=== PATIENT | female | born 1945 | race Caucasian/White ===

== ENCOUNTER → 2016-10-20 | Outpatient (CLI) | payer OTHER ==
[~2016-10-20] MED LIST: ACET-1311 PO; ALUMSUS2 PO; ATOR-22 PO; ATRIN INH; ATRINS INH; BISA10SU38 PR; CALCTAB65 PO; CRDCD240 PO; CYAN500T PO; DIGO0.2519 PO; DIGO250T14 PO; DOCU100C31 PO; DXY100 PO; FLEC100T21 PO; FURO40TA3 PO; GFNSR600 PO; GLYCDRO6 OPB; HYG/25 PO; LACT10SO30 PO; LACT1TAB4 PO; LEVO75TA PO; LIDO5DIS10 TD; MAGNSUS5 PO; METO100T44 PO; NRN/300 PO; OXGN; OXYC-57 PO; PANT40TA PO; PLMINS INH; POLY335019 PO; PRD20 PO; RIVA1TAB4 PO; SENN-65 PO; SIMV20TA5 PO; SODIENE PR; TMB100 PO; XPNINS INH; XRL20 PO
--- NOTE | 2016-10-20 12:04 | DIAGNOSTIC IMAGING REPORT ---
CHEST 2 VIEWS ROUTINE CLINICAL HISTORY: R06.02 Shortness of [id number] dyspnea COMPARISON STUDY: 08/19/2013 FINDINGS: The bones soft tissues and hemidiaphragms are normal. The cardiomediastinal silhouette is normal. The lungs are clear. The pulmonary vasculature is normal. IMPRESSION: Negative chest. Electronically signed by: Jaylen Ronquillo M.D. 10/20/2016 12:02 PM Dictated Date/Time: 10/20/2016 12:02 PM
== END | disposition home or self-care (01) ==
LOC: C.RAD1850 11:43
PROVIDERS: ATTEND Physician Assistant
DX: R06.02 Shortness of breath (principal)

== ENCOUNTER 2016-10-21 10:36 | Inpatient (IN) | payer OTHER ==
[~2016-10-21] VITALS: Ht 157.5 cm; Wt 125.1 kg
[~2016-10-21 10:36] MED LIST changes: -ATOR-22 PO; -ATRIN INH; -DIGO0.2519 PO; -DXY100 PO; -FLEC100T21 PO; -FURO40TA3 PO; -PRD20 PO; -RIVA1TAB4 PO
[2016-10-21] MEDS ORDERED: METHYLPREDNISOLONE 125 MG VIAL IV STA (11:08)
[2016-10-21] MEDS ORDERED: ALBUT/IPRATROP 3MG/0.5MG NEB 3 ML VIAL INH STA ×2 (11:08→14:22)
--- NOTE | 2016-10-21 11:10 | EMERGENCY ROOM VISIT NOTE ---
History Report prepared by Jason: Edmond Mason Under the Supervision of: Dr. Jake Rinaldi D.O. First contact with patient: 10:57 Chief Complaint: RESPIRATORY PROBLEMS Stated Complaint: DIFF. BREATHING, CONGESTION POSS. PNEUMONIA History of Present Illness The patient is a 70 year old female with a history of COPD who presents to the Emergency Room with complaints of worsening respiratory problems that started a couple weeks ago. She says that she was seen by a physician cosmetic sales assistant yesterday , and had a chest x-ray done, which was negative for pneumonia. The patient was started on Augmentin, a nebulizer treatment, and a steroid, but she has not taken any of her medications today, per the nursing staff. The patient normally wears 2 liters of oxygen at night, but started wearing it during the day due to her symptoms. She says that she is wheezy with a productive cough that brings a little blood up. She says that she got hot early this morning, but denies a fever. She also denies any chest pain, new leg pain, or new leg swelling. The patient says that she had pneumonia a couple years ago, and feels much worse now than she did when she had it back then. Source of History: patient, nursing staff Onset: A couple weeks ago Position: other (global - respiratory problems) Timing: worsening Associated Symptoms: + SOB, + cough (productive that brings up a little blood), No chest pain, No fevers Note: Associated symptoms: Wheezy. Got hot early this morning. Denies new leg pain or new leg swelling. Review of Systems See HPI for pertinent positives & negatives. A total of 10 systems reviewed and were otherwise negative. Past Medical & Surgical Medical Problems: (1) Asthma (2) Atrial fibrillation, new onset (3) Autonomic neuropathy (4) Cholecystectomy (5) Chronic obstructive lung disease (6) Hernia repair (7) Hysterectomy (8) Pneumonia Family History FHx: heart disease Stroke Social History Smoking Status: Never Smoker Alcohol Use: none Marital Status: single Housing Status: lives alone Occupation Status: disabled Current/Historical Medications Scheduled Atorvastatin (Lipitor), 20 MG PO QPM Calcium Carbonate-Vitamin D (Calcium 500 + D), 1 TABLET PO BID Cyanocobalamin (Vitamin B-12), 500 MCG PO DAILY Digoxin (Digox), 250 MG PO DAILY Docusate Sodium (Docusate Sodium), 100 MG PO DAILY Flecainide (Tambocor), 100 MG PO Q12 Furosemide (Lasix), 20 MG PO DAILY Gabapentin (Neurontin), 300 MG PO DAILY Ipratropium [place] (Ipratropium [place]), 1 TREATMENT INH QID Ipratropium [place] (Atrovent Hfa), 2 PUFFS INH QID Levothyroxine Sodium (Synthroid), 75 MCG PO QAM Metoprolol Succ (Toprol Xl) (Toprol-Xl ), 100 MG PO DAILY Oxygen (Oxygen), 2 LITERS NA HS Pantoprazole (Protonix), 40 MG PO DAILY Rivaroxaban (Xarelto), 20 MG PO DAILY@1645 Senna/Docusate Sod (Senokot S), 1 TABLET PO DAILY Scheduled PRN Acetaminophen (Tylenol), 650 MG PO Q4H PRN for Mild Pain Bisacodyl (Dulcolax), 1 SUPP MD UD PRN for No Bowel Movement/Constipation Rkrvvhrp-Rmcnebsndihf-Auuapmwq (Artificial Tears), 2 DROPS OPB QID PRN for DRY EYES Magnesium Hydroxide (Milk Of Magnesia), 30 ML PO UD PRN for No Bowel Movement/ Constipation Polyethylene Glycol 3350 (Miralax), 17 GM PO Q24H PRN for Constipation Sodium Phosphate/Biphosphate (Fleet Enema), 1 EA MD UD PRN for No Bowel Movement /Constipation Allergies Coded Allergies: Pecan (Verified Allergy, Unknown, ., 10/21/16) Sulfa Drugs (Verified Adverse Reaction, Mild, YEAST INFECTION, 10/21/16) Physical Exam Vital Signs Date Time Temp Pulse Resp B/P Pulse Ox O2 Delivery O2 Flow Rate FiO2 10/21/16 15:29 72 85 Room Air 10/21/16 14:30 66 18 209/79 99 Nebulizer 7.0 10/21/16 13:31 61 16 183/74 94 Nasal Cannula 2.0 10/21/16 13:17 58 10/21/16 12:01 64 16 160/68 95 Room Air 10/21/16 11:02 95 Nasal Cannula 2.0 10/21/16 11:02 95 Nasal Cannula 2.0 10/21/16 10:55 68 10/21/16 10:44 Nasal Cannula 2.0 10/21/16 10:40 36.6 84 26 159/93 88 Room Air Physical Exam GENERAL: Patient is awake, alert, mildly anxious appearing but comfortable. Does not appear to be in pain. EYES: The conjunctivae are clear. The pupils are round and reactive. EARS, NOSE, MOUTH AND THROAT: The nose is without any evidence of any deformity. Mucous membranes are moist tongue is midline NECK: The neck is nontender and supple. RESPIRATORY: Diminished breath sounds noted throughout. There was expiratory wheezing noted in all brown. Tachypnea was noted with mild conversational dyspnea. CARDIOVASCULAR: Heart sounds are tachycardic but regular. No definite murmur noted to auscultation. GASTROINTESTINAL: The abdomen is soft. Bowel sounds are present in all quadrants. Abdomen is nontender MUSCULOSKELETAL/EXTREMITIES: There is no evidence of gross deformity full range of motion is noted in the hips and shoulders SKIN: Pedal edema bilaterally, right greater than left. NEUROLOGIC: Patient is awake alert and oriented x3. Medical Decision & Procedures ER Provider Diagnostic Interpretation: X-ray results as stated below per interpretation by me and the radiologist. SINGLE VIEW CHEST CLINICAL HISTORY: Dyspnea. FINDINGS: An AP, portable, upright chest radiograph is compared to study dated 10/20/2016. The examination is degraded by portable technique and apical lordotic positioning. The heart is enlarged and there is atherosclerotic calcification of the thoracic aorta. The pulmonary vasculature is noncongested. Chronic interstitial thickening is unchanged. No airspace consolidation, large pleural effusion, or pneumothorax is seen. The skeletal structures are osteopenic. Degenerative change is noted throughout the thoracic spine. Chronic deformity is noted in the left humeral shaft. IMPRESSION: Cardiomegaly with no acute cardiopulmonary abnormality. Electronically signed by: Tommy Cardona M.D. 10/21/2016 11:42 AM Dictated Date/Time: 10/21/2016 11:41 AM Laboratory Results 10/21/16 11:07 Red Blood Count 4.64, Mean Corpuscular Volume 90.9, Mean Corpuscular Hemoglobin 29.5, Mean Corpuscular Hemoglobin Concent 32.5, Mean Platelet Volume 9.3, Neutrophils (%) (Auto) 82.4, Lymphocytes (%) (Auto) 10.2, Monocytes (%) (Auto) 6.1, Eosinophils (%) (Auto) 0.6, Basophils (%) (Auto) 0.3, Neutrophils # (Auto) 10.64, Lymphocytes # (Auto) 1.32, Monocytes # (Auto) 0.79, Eosinophils # (Auto) 0.08, Basophils # (Auto) 0.04 10/21/16 11:07 Test 10/21/16 11:07 10/21/16 12:15 10/21/16 12:40 10/21/16 16:11 White Blood Count 12.92 K/uL (4.8-10.8) Red Blood Count 4.64 M/uL (4.2-5.4) Hemoglobin 13.7 g/dL (12.0-16.0) Hematocrit 42.2 % (37-47) Mean Corpuscular Volume 90.9 fL (80-100) Mean Corpuscular Hemoglobin 29.5 pg (25-34) Mean Corpuscular Hemoglobin Concent 32.5 g/dl (32-36) Platelet Count 293 K/uL (130-400) Mean Platelet Volume 9.3 fL (7.4-10.4) Neutrophils (%) (Auto) 82.4 % Lymphocytes (%) (Auto) 10.2 % Monocytes (%) (Auto) 6.1 % Eosinophils (%) (Auto) 0.6 % Basophils (%) (Auto) 0.3 % Neutrophils # (Auto) 10.64 K/uL (1.4-6.5) Lymphocytes # (Auto) 1.32 K/uL (1.2-3.4) Monocytes # (Auto) 0.79 K/uL (0.11-0.59) Eosinophils # (Auto) 0.08 K/uL (0-0.5) Basophils # (Auto) 0.04 K/uL (0-0.2) RDW Standard Deviation 43.9 fL (36.4-46.3) RDW Coefficient of Variation 13.3 % (11.5-14.5) Immature Granulocyte % (Auto) 0.4 % Immature Granulocyte # (Auto) 0.05 K/uL (0.00-0.02) Prothrombin Time 10.7 SECONDS (9.0-12.0) Prothromb Time International Ratio 1.0 (0.9-1.1) Activated Partial Thromboplast Time 26.0 SECONDS (21.0-31.0) Partial Thromboplastin Ratio 1.0 Anion Gap 6.0 mmol/L (3-11) Est Creatinine Clear Calc Drug Dose 79.5 ml/min Estimated GFR () 81.6 Estimated GFR (Non- 70.4 BUN/Creatinine Ratio 13.7 (10-20) Calcium Level 9.2 mg/dl (8.5-10.1) Total Bilirubin 0.3 mg/dl (0.2-1) Aspartate Amino Transf (AST/SGOT) 18 U/L (15-37) Alanine Aminotransferase (ALT/SGPT) 23 U/L (12-78) Alkaline Phosphatase 108 U/L (45-117) Total Creatine Kinase 69 U/L (26-192) Creatine Kinase MB 1.7 ng/ml (0.5-3.6) Creatine Kinase MB Ratio 2.5 (0-3.0) Troponin I 0.015 ng/ml (0-0.045) Pro-B-Type Natriuretic Peptide 1057 pg/ml (0-900) Total Protein 7.9 gm/dl (6.4-8.2) Albumin 3.3 gm/dl (3.4-5.0) Globulin 4.6 gm/dl (2.5-4.0) Albumin/Globulin Ratio 0.7 (0.9-2) Urine Color YELLOW Urine Appearance CLEAR (CLEAR) Urine pH 7.0 (4.5-7.5) Urine Specific [place] 1.011 (1.000-1.030) Urine Protein NEG (NEG) Urine Glucose (UA) NEG (NEG) Urine Ketones NEG (NEG) Urine Occult Blood NEG (NEG) Urine Nitrite NEG (NEG) Urine Bilirubin NEG (NEG) Urine Urobilinogen NEG (NEG) Urine Leukocyte Esterase NEG (NEG) Bedside Lactic Acid Venous 2.40 mmol/L (0.90-1.70) Laboratory results per my review. Medications Administered Medications (Trade) Dose Ordered Sig/Darlene Route Start Time Stop Time Status Last Admin Dose Admin Methylprednisolone Sodium Succinate (Solu-Medrol IV) 125 mg NOW STAT IV 10/21/16 11:08 10/21/16 11:09 DC 10/21/16 11:42 125 MG Albuterol/ Ipratropium (Duoneb) 3 ml NOW STAT INH 10/21/16 11:08 10/21/16 11:09 DC 10/21/16 11:42 3 ML Albuterol/ Ipratropium (Duoneb) 3 ml NOW STAT INH 10/21/16 14:22 10/21/16 14:23 DC 10/21/16 14:27 3 ML Levofloxacin (Levaquin / D5W) 750 mg NOW STAT IV 10/21/16 14:23 10/21/16 14:24 DC 10/21/16 14:27 750 MG ECG Indication: SOB/dyspnea Rate (beats per minute): 61 Rhythm: normal sinus Findings: no ectopy, other (RBBB pattern noted) Change: no significant change (from August 20 2013) ED Course 1105: The patient was evaluated in room C7. A complete history and physical examination were performed. 1108: Ordered Duoneb 3 ml INH, Solu-Medrol IV 125 mg IV. 1423: Ordered Levaquin / D5W 750 mg IV. 1525: I reevaluated the patient and she is resting. The patient verbally expressed understanding and agreement with the treatment plan. The patient will be evaluated for further treatment. 1536: I discussed the patient with Dr. Burnette - [facility] carbonation equipment tender. He will evaluate the patient for further treatment. Medical Decision Prior records/ancillary studies reviewed. Triage Nursing notes reviewed. Differential diagnosis: Etiologies such as infections, reactive airway disease, pneumonia, pneumothorax , COPD, CHF, cardiac ischemia, pulmonary embolism, musculoskeletal, gastrointestinal, as well as others were entertained. The patient is a 70-year-old female who presented to the emergency department for an evaluation of significant shortness of breath. The patient has a history of COPD and was treated with bronchodilator therapy steroids and antibiotics by her primary care physician. She presents to the emergency department today because worsening ongoing symptoms. The patient had very significant dyspnea as well as hypoxia on exertion. She normally wears nasal cannula oxygen at night but had to wear nasal cannula oxygen throughout today because of her symptoms. The patient takes anticoagulation for atrial fibrillation. I discussed the patient's laboratory and radiographic studies with her. She was treated with multiple bronchodilator treatments as well as steroids. She was also given IV antibiotics. On subsequent reevaluation she still had significant symptoms and have hypoxia with exertion. For this reason I discussed her case with the on- call [facility] hospitalist group. They have agreed to evaluate the patient in the emergency apartment for further major and disposition. Consults Time Called: 1530 Consulting Physician: Dr. Vasile TERESA carbonation equipment tender Returned Call: 1533 I discussed the patient with Dr. Vasile TERESA carbonation equipment tender. He will evaluate the patient for further treatment. Impression Primary Impression: Acute bronchitis Additional Impressions: COPD exacerbation Hypoxia Scribe Attestation The scribe's documentation has been prepared under my direction and personally reviewed by me in its entirety. I confirm that the note above accurately reflects all work, treatment, procedures, and medical decision making performed by me. Departure Information Dispostion Being Evaluated By Hospitalist Referrals Harsha Venegas M.D. (PCP) Patient Instructions My [facility] Problem Qualifiers Primary Impression: Acute bronchitis Bronchitis organism: unspecified organism Qualified Codes: J20.9 - Acute bronchitis, unspecified
[2016-10-21 11:22] LABS: BASO % 0.3 %; BASO ABS # 0.04 K/uL (0-0.2); COMPLETE YES; EOS % 0.6 %; HEMATOCRIT 42.2 % (37-47); IG% 0.4 %; LYMPH % 10.2 %; LYMPH ABS # 1.32 K/uL (1.2-3.4); MEAN CELL VOLUME 90.9 fL (80-100); MEAN CORPUSCULAR HEMOGLOBIN 29.5 pg (25-34); MEAN CORPUSCULAR HGB CONC 32.5 g/dl (32-36); MEAN PLATELET VOLUME 9.3 fL (7.4-10.4); MONO % 6.1 %; NEUT % 82.4 %; PLATELET COUNT 293 K/uL (130-400); RED BLOOD COUNT 4.64 M/uL (4.2-5.4); WHITE BLOOD COUNT 12.92 K/uL (4.8-10.8)
[2016-10-21 11:39] LABS: PROTHROMBIN TIME (PATIENT) 10.7 SECONDS (9.0-12.0)
[2016-10-21 11:41] LABS: BUN/CREATININE RATIO 13.7 (10-20); CALCIUM 9.2 mg/dl (8.5-10.1); CREATININE 0.85 mg/dl (0.60-1.20); POTASSIUM 3.9 mmol/L (3.5-5.1)
[2016-10-21] MEDS ORDERED: ATRIN INH (11:41)
[2016-10-21] MEDS ORDERED: FLEC100T21 PO (11:41)
[2016-10-21] MEDS ORDERED: DIGO0.2519 PO (11:41)
[2016-10-21] MEDS ORDERED: RIVA1TAB4 PO (11:41)
[2016-10-21] MEDS ORDERED: ATOR-22 PO (11:41)
[2016-10-21] MEDS ORDERED: FURO40TA3 PO (11:41)
--- NOTE | 2016-10-21 11:44 | DIAGNOSTIC IMAGING REPORT ---
SINGLE VIEW CHEST CLINICAL HISTORY: Dyspnea. FINDINGS: An AP, portable, upright chest radiograph is compared to study dated 10/20/2016. The examination is degraded by portable technique and apical lordotic positioning. The heart is enlarged and there is atherosclerotic calcification of the thoracic aorta. The pulmonary vasculature is noncongested. Chronic interstitial thickening is unchanged. No airspace consolidation, large pleural effusion, or pneumothorax is seen. The skeletal structures are osteopenic. Degenerative change is noted throughout the thoracic spine. Chronic deformity is noted in the left humeral shaft. IMPRESSION: Cardiomegaly with no acute cardiopulmonary abnormality. Electronically signed by: Tommy Cardona M.D. 10/21/2016 11:42 AM Dictated Date/Time: 10/21/2016 11:41 AM
[2016-10-21 11:46] LABS: ALB/GLOB RATIO 0.7 (0.9-2); CKMB/CK RATIO 2.5 (0-3.0)
[2016-10-21 12:40] LABS: URINE APPEARANCE CLEAR (CLEAR); URINE BILIRUBIN NEG (NEG); URINE COLOR YELLOW; URINE NITRITE NEG (NEG); URINE SPECIFIC GRAVITY 1.011 (1.000-1.030); UROBILINOGEN NEG (NEG)
[2016-10-21 12:56] LABS: MANUAL MICROSCOPIC REQUIRED? NO; REVIEW REQ? NO
[2016-10-21] MEDS ORDERED: LEVAQUIN 750MG / 150ML D5W IV STA (14:23)
[2016-10-21] MEDS ORDERED: MAGNESIUM HYDROXIDE SUSP 30 ML UDC PO PRN (16:15)
[2016-10-21] MEDS ORDERED: ONDANSETRON INJ 2 MG/ML 2 ML VIAL IV PRN (16:15)
[2016-10-21] MEDS ORDERED: ACETAMINOPHEN 325 MG TAB PO PRN (16:15)
--- NOTE | 2016-10-21 16:28 | History and Physical ---
History & Physical Date & Time of Service: October 21, 2016 at 16:14 Chief Complaint: Diff. Breathing, Congestion Poss. Pneumonia Primary Care Physician: Harsha Venegas M.D. History of Present Illness Source: patient Pt is a 70 year old female with a history of COPD, afib, neuropathy, hypothyroidism who presents to the ER with worsening shortess of breath that initially started a few weeks ago but worsened a cple day ago. Pt reports worsening sob at rest and saw her PCP Dr Venegas's PA 2 days ago and was given steroid taper in addition to amoxicillin. Pt reports CXR also done but no PNA reported at that time. She states she did not improve on this regimen and states she was wearing her O2 during the day in addition to her usual (only wearing it at night) and noted worsening cough with productive yellowish-greenish sputum. Pt denies occasional chills but no fevers. No chest pain, palpitations, leg swelling, N/V/D. The patient says that she had pneumonia a couple years ago, and feels much worse now than she did when she had it back then. Past Medical/Surgical History Medical Problems: (1) Asthma Status: Chronic (2) Atrial fibrillation, new onset Status: Chronic (3) Autonomic neuropathy Status: Chronic (4) Cholecystectomy Status: Resolved (5) Chronic obstructive lung disease Status: Chronic (6) Hernia repair Status: Resolved (7) Hysterectomy Status: Resolved (8) Pneumonia Status: Resolved Family History FHx: heart disease Stroke Social History Smoking Status: Never Smoker Smokeless Tobacco Use: No Alcohol Use: none Drug Use: none Marital Status: single Housing status: lives alone Occupational Status: disabled Immunizations History of Influenza Vaccine: Yes Influenza Vaccine Date: Mar 02, 2013 History of Tetanus Vaccine?: UTD History of Pneumococcal: Yes History of Hepatitis B Vaccine: No Multi-Drug Resistant Organisms History of MDRO: No Allergies Coded Allergies: Pecan (Verified Allergy, Unknown, ., 10/21/16) Sulfa Drugs (Verified Adverse Reaction, Mild, YEAST INFECTION, 10/21/16) Home Medications Scheduled Atorvastatin (Lipitor), 20 MG PO QPM Calcium Carbonate-Vitamin D (Calcium 500 + D), 1 TABLET PO BID Cyanocobalamin (Vitamin B-12), 500 MCG PO DAILY Digoxin (Digox), 250 MG PO DAILY Docusate Sodium (Docusate Sodium), 100 MG PO DAILY Flecainide (Tambocor), 100 MG PO Q12 Furosemide (Lasix), 20 MG PO DAILY Gabapentin (Neurontin), 300 MG PO DAILY Ipratropium [place] (Ipratropium [place]), 1 TREATMENT INH QID Ipratropium [place] (Atrovent Hfa), 2 PUFFS INH QID Levothyroxine Sodium (Synthroid), 75 MCG PO QAM Metoprolol Succ (Toprol Xl) (Toprol-Xl ), 100 MG PO DAILY Oxygen (Oxygen), 2 LITERS NA HS Pantoprazole (Protonix), 40 MG PO DAILY Rivaroxaban (Xarelto), 20 MG PO DAILY@1645 Senna/Docusate Sod (Senokot S), 1 TABLET PO DAILY Scheduled PRN Acetaminophen (Tylenol), 650 MG PO Q4H PRN for Mild Pain Bisacodyl (Dulcolax), 1 SUPP MS UD PRN for No Bowel Movement/Constipation Tbjnlkeo-Nwnzccsktocf-Jalqrdwi (Artificial Tears), 2 DROPS OPB QID PRN for DRY EYES Magnesium Hydroxide (Milk Of Magnesia), 30 ML PO UD PRN for No Bowel Movement/ Constipation Polyethylene Glycol 3350 (Miralax), 17 GM PO Q24H PRN for Constipation Sodium Phosphate/Biphosphate (Fleet Enema), 1 EA MS UD PRN for No Bowel Movement /Constipation Review of Systems Constitutional: + chills, + fatigue, + weakness, No fever Eyes: No eye pain, No worsening of vision ENT: + nasal symptoms, No hearing loss, No sore throat, No tinnitus, No trouble swallowing, No unusual epistaxis Respiratory: + cough, + dyspnea at rest, + dyspnea on exertion, + shortness of breath, + sputum, + wheezing, No hemoptysis Cardiovascular: No PND, No chest pain, No claudication, No edema, No orthopnea Abdomen: No constipation, No diarrhea, No nausea, No pain, No vomiting Musculoskeletal: No joint pain, No muscle pain, No swelling Genitourinary - Female: No dysuria, No urinary frequency, No urinary incontinence, No urinary urgency Neurologic: + numbness/tingling, No memory loss, No paralysis, No weakness Psychiatric: No anhedonism, No anxiety, No depression symptoms Endocrine: No excessive thirst, No excessive urination, No fatigue Integumentary: No itch, No rash Physical Exam Vital Signs Date Time Temp Pulse Resp B/P Pulse Ox O2 Delivery O2 Flow Rate FiO2 10/21/16 15:29 72 85 Room Air 10/21/16 14:30 66 18 209/79 99 Nebulizer 7.0 10/21/16 13:31 61 16 183/74 94 Nasal Cannula 2.0 10/21/16 13:17 58 10/21/16 12:01 64 16 160/68 95 Room Air 10/21/16 11:02 95 Nasal Cannula 2.0 10/21/16 11:02 95 Nasal Cannula 2.0 10/21/16 10:55 68 10/21/16 10:44 Nasal Cannula 2.0 10/21/16 10:40 36.6 84 26 159/93 88 Room Air General Appearance: WD/WN, + mild distress Head: normocephalic, atraumatic Eyes: normal inspection, PERRL, EOMI Neck: supple, no adenopathy, thyroid normal, no JVD Respiratory/Chest: chest non-tender, + decreased breath sounds, + wheezing Cardiovascular: no edema, no gallop, no JVD, no murmur Abdomen/GI: non tender, soft, no organomegaly Back: normal inspection, no CVA tenderness, no muscle spasm Extremities/Musculoskelatal: normal inspection, no calf tenderness, normal capillary refill, no pedal edema Neurologic/Psych: alert, normal mood/affect, normal reflexes, oriented x 3 Skin: normal color, warm/dry, no rash Diagnostics Laboratory Results Results Past 24 Hours Test 10/21/16 11:07 10/21/16 12:15 10/21/16 12:40 10/21/16 16:11 Range/Units White Blood Count 12.92 4.8-10.8 K/uL Red Blood Count 4.64 4.2-5.4 M/uL Hemoglobin 13.7 12.0-16.0 g/dL Hematocrit 42.2 37-47 % Mean Corpuscular Volume 90.9 80-100 fL Mean Corpuscular Hemoglobin 29.5 25-34 pg Mean Corpuscular Hemoglobin Concent 32.5 32-36 g/dl Platelet Count 293 130-400 K/uL Mean Platelet Volume 9.3 7.4-10.4 fL Neutrophils (%) (Auto) 82.4 % Lymphocytes (%) (Auto) 10.2 % Monocytes (%) (Auto) 6.1 % Eosinophils (%) (Auto) 0.6 % Basophils (%) (Auto) 0.3 % Neutrophils # (Auto) 10.64 1.4-6.5 K/uL Lymphocytes # (Auto) 1.32 1.2-3.4 K/uL Monocytes # (Auto) 0.79 0.11-0.59 K/uL Eosinophils # (Auto) 0.08 0-0.5 K/uL Basophils # (Auto) 0.04 0-0.2 K/uL RDW Standard Deviation 43.9 36.4-46.3 fL RDW Coefficient of Variation 13.3 11.5-14.5 % Immature Granulocyte % (Auto) 0.4 % Immature Granulocyte # (Auto) 0.05 0.00-0.02 K/uL Prothrombin Time 10.7 9.0-12.0 SECONDS Prothromb Time International Ratio 1.0 0.9-1.1 Activated Partial Thromboplast Time 26.0 21.0-31.0 SECONDS Partial Thromboplastin Ratio 1.0 Sodium Level 138 136-145 mmol/L Potassium Level 3.9 3.5-5.1 mmol/L Chloride Level 99 98-107 mmol/L Carbon Dioxide Level 33 21-32 mmol/L Anion Gap 6.0 3-11 mmol/L Blood Urea Nitrogen 12 7-18 mg/dl Creatinine 0.85 0.60-1.20 mg/dl Est Creatinine Clear Calc Drug Dose 79.5 ml/min Estimated GFR () 81.6 Estimated GFR (Non- 70.4 BUN/Creatinine Ratio 13.7 10-20 Random Glucose 137 70-99 mg/dl Calcium Level 9.2 8.5-10.1 mg/dl Total Bilirubin 0.3 0.2-1 mg/dl Aspartate Amino Transf (AST/SGOT) 18 15-37 U/L Alanine Aminotransferase (ALT/SGPT) 23 12-78 U/L Alkaline Phosphatase 108 45-117 U/L Total Creatine Kinase 69 26-192 U/L Creatine Kinase MB 1.7 0.5-3.6 ng/ml Creatine Kinase MB Ratio 2.5 0-3.0 Troponin I 0.015 0-0.045 ng/ml Pro-B-Type Natriuretic Peptide 1057 0-900 pg/ml Total Protein 7.9 6.4-8.2 gm/dl Albumin 3.3 3.4-5.0 gm/dl Globulin 4.6 2.5-4.0 gm/dl Albumin/Globulin Ratio 0.7 0.9-2 Urine Color YELLOW Urine Appearance CLEAR CLEAR Urine pH 7.0 4.5-7.5 Urine Specific [place] 1.011 1.000-1.030 Urine Protein NEG NEG Urine Glucose (UA) NEG NEG Urine Ketones NEG NEG Urine Occult Blood NEG NEG Urine Nitrite NEG NEG Urine Bilirubin NEG NEG Urine Urobilinogen NEG NEG Urine Leukocyte Esterase NEG NEG Bedside Lactic Acid Venous 2.40 0.90-1.70 mmol/L Microbiology Results 10/21/16 Blood Culture, Received Pending 10/21/16 Blood Culture, Received Pending Impression Assessment and Plan Pt is a 70 ye female with hx of COPD, afib, dyslipidemia, neuropathy who presents to ER with worsening sob x 2 days Shortness of breath likely secondary to bronchitis vs developing PNA. No CXR findings indicative of infiltrate, however lactate and WBC elev in addition to productive sputum. Will utilize levaquin 750 mg IV q daily and solumedrol 60 mg IV q 8 hrs. Duonebs q 4 hrs and flutter valve will be utilized as well. Obtain sputum and blood cx. If worsening may consider CTA, however pt on xarelto which she states compliance with Afib currently in NSR, cont flecanide, digoxin and xarelto, rate controlled COPD cont on duonebs, steroids and O2 per protocol Hypothyroidism cont synthroid, check TSH Neuropathy stable, cont on neurontin DVT ppx with xarelto Pt is FULL CODE VTE Prophylaxis VTE Risk Assessment Done? Y/N: Yes Risk Level: Moderate
[2016-10-21] MEDS: RIVAROXABAN 10 MG TAB PO SCH (16:45)
[2016-10-21 17:06] LABS: MAGNESIUM 2.2 mg/dl (1.8-2.4); THYROID STIMULATING HORMONE 2.94 uIu/ml (0.300-4.500)
[2016-10-21] MEDS: DIGOXIN 0.25 MG TAB PO SCH (21:25)
[2016-10-21] MEDS: METHYLPREDNISOLONE IV 60 MG in SYRINGE 0 ML IV SCH (21:26)
[2016-10-21] MEDS: ATORVASTATIN 20 MG TAB PO SCH (21:27)
[2016-10-21] MEDS: FLECAINIDE ACETATE 100 MG TAB PO SCH (21:27)
[2016-10-21] MEDS ORDERED: NURSING VERBAL MED ORDER ONE (22:15)
[2016-10-21 22:35] VITALS: BP 158/83; PULSE 60; TEMP 36.4; O2SAT 94
[2016-10-21 22:37] VITALS: BP 169/70; PULSE 91; TEMP 37.9; O2SAT 94; Ht 157.5 cm; Wt 125.1 kg
[2016-10-21 23:14] VITALS: PULSE 64; O2SAT 96
[2016-10-21] MEDS: ALBUT/IPRATROP 3MG/0.5MG NEB 3 ML VIAL INH SCH (23:14)
[2016-10-22] VITALS (14 sets, daily range): BP systolic 118–167; BP diastolic 63–82; PULSE 52–74; TEMP 36.5–36.9; O2SAT 91–98
[2016-10-22] MEDS: LEVOTHYROXINE 75 MCG TAB PO SCH (05:57)
[2016-10-22] MEDS: ALBUT/IPRATROP 3MG/0.5MG NEB 3 ML VIAL INH SCH ×4 (06:07→19:00)
[2016-10-22 06:39] LABS: BASO % 0.1 %; BASO ABS # 0.01 K/uL (0-0.2); COMPLETE YES; HEMATOCRIT 40.3 % (37-47); IG% 0.3 %; LYMPH % 11.2 %; LYMPH ABS # 1.27 K/uL (1.2-3.4); MEAN CELL VOLUME 92.2 fL (80-100); MEAN CORPUSCULAR HEMOGLOBIN 29.7 pg (25-34); MEAN CORPUSCULAR HGB CONC 32.3 g/dl (32-36); MEAN PLATELET VOLUME 9.6 fL (7.4-10.4); MONO % 4.8 %; NEUT % 83.6 %; PLATELET COUNT 283 K/uL (130-400); RED BLOOD COUNT 4.37 M/uL (4.2-5.4); WHITE BLOOD COUNT 11.35 K/uL (4.8-10.8)
[2016-10-22 07:16] LABS: BLOOD UREA NITROGEN 14 mg/dl (7-18); BUN/CREATININE RATIO 18.6 (10-20); CALCIUM 9.1 mg/dl (8.5-10.1); CARBON DIOXIDE 32 mmol/L (21-32); CHLORIDE 101 mmol/L (98-107); CREATININE 0.77 mg/dl (0.60-1.20); GLUCOSE 148 mg/dl (70-99); POTASSIUM 4.2 mmol/L (3.5-5.1); SODIUM 140 mmol/L (136-145)
[2016-10-22] MEDS: DOCUSATE SODIUM 100 MG CAP PO SCH (08:43)
[2016-10-22] MEDS: CYANOCOBALAMIN 500 MCG TAB (VIT B-12) PO SCH (08:43)
[2016-10-22] MEDS: FUROSEMIDE 20 MG TAB PO SCH (08:44)
[2016-10-22] MEDS: METOPROLOL SUCC 50MG EXT REL TAB PO SCH (08:45)
[2016-10-22] MEDS: PANTOprazole SOD 40 MG TAB PO SCH (08:45)
[2016-10-22] MEDS: METHYLPREDNISOLONE IV 60 MG in SYRINGE 0 ML IV SCH ×2 (08:45→20:56)
[2016-10-22] MEDS: FLECAINIDE ACETATE 100 MG TAB PO SCH ×2 (08:45→20:48)
[2016-10-22] MEDS ORDERED: GABAPENTIN 300 MG CAP PO SCH (09:00)
--- NOTE | 2016-10-22 10:05 | Clinical Documentation Query ---
QUERY 1 OF [address] PAN, In your clinical opinion is this patient being managed for: (X ) Acute respiratory failure evidenced by tachypnea, orthopnea and hypoxia ( ) Other explanation of clinical findings (Please Explain) ( ) Unable to determine (Please Define) ( ) Need to Discuss ( ) Not Agree The medical record reflects the following clinical findings, treatment, and risk factors. Clinical Indicators: 70 yo female presenting with worsening respiratory problems. Pt has had to increase her HS only oxygen to continuous wear. ER describes pt as tachypnea with mild conversational dyspnea, mildly anxious. Per nursing documentation in ER, pt had to sit up to breathe thru the night. VS 36.6-84-26, 159/93, O2 sat 88% on RA Treatment: IV solumedrol, duonebs x 2, IV levaquin, continuous O2 support Risk Factors: age, COPD, pneumonia QUERY 2 OF 2 In your clinical opinion is this patient being managed for: ( X ) Morbid obesity with BMI 49.7 ( ) Other explanation of clinical findings (Please Explain) ( ) Unable to determine (Please Define) ( ) Need to Discuss ( ) Not Agree BMI: A significantly high (> 40) BMI will impact the severity of illness and risk of mortality of your patient. However, the physician must document a correlating diagnosis in the medical Record. Please clarify and document your clinical opinion in the progress notes and discharge summary. Terms such as "probable", "suspected", "likely", "questionable", "possible", or "still to be ruled out" are acceptable. IF IN AGREEMENT, YOU MUST DOCUMENT ABOVE DIAGNOSTIC STATEMENT IN DAILY PROGRESS NOTES AND DISCHARGE SUMMARY. This document is not part of the patient's record. Thank You, Henrietta Riggins RN [phone]
[2016-10-22] MEDS: DOXYCYCLINE HYCLATE 100 MG in DEXTROSE 5% 100ML IV SCH (15:41)
[2016-10-22] MEDS: CEFTRIAXONE SOD INJ 2000 MG in DEXTROSE 5% 50ML IV SCH (15:41)
--- NOTE | 2016-10-22 15:42 | Progress Note ---
Subjective Date of Service: October 22, 2016. Subjective Pt evaluation today including: conversation w/ patient, physical exam, chart review, lab review, review of studies, conversation w/ client service consultant, review of inpatient medication list Pt resting comfortably in bed States less wheezing and less shortness of breath Still productive sputum of yellowish-brown phlegm No acute events overnight Problem List Medical Problems: (1) Acute bronchitis Status: Acute (2) COPD exacerbation Status: Acute (3) Hypoxia Status: Acute Review of Systems Constitutional: No chills, No fever Eyes: No eye pain, No worsening of vision ENT: No hearing loss, No nasal symptoms, No unusual epistaxis Respiratory: + cough, + sputum, No shortness of breath, No wheezing Cardiac: No PND, No chest pain, No edema, No orthopnea Abdomen: No constipation, No diarrhea, No nausea, No pain, No vomiting Musculoskeletal: No joint pain, No muscle pain, No swelling Female : No dysuria, No hematuria, No incontinence, No urinary frequency Neurologic: No memory loss, No numbness/tingling, No paralysis, No weakness Objective Vital Signs Date Time Temp Pulse Resp B/P Pulse Ox O2 Delivery O2 Flow Rate FiO2 10/22/16 12:00 95 Nasal Cannula 2.0 10/22/16 11:55 69 20 95 Nasal Cannula 2.0 10/22/16 11:35 36.8 52 16 118/69 97 Nasal Cannula 2.0 10/22/16 08:00 95 Nasal Cannula 2.0 10/22/16 07:56 36.6 61 16 146/63 95 Nasal Cannula 2.0 10/22/16 06:08 74 22 91 Nasal Cannula 2.0 10/22/16 04:30 36.5 57 20 147/78 94 Nasal Cannula 2.0 10/22/16 04:00 Nasal Cannula 2.0 10/22/16 00:00 Nasal Cannula 2.0 10/21/16 23:14 64 20 96 Nasal Cannula 2.0 10/21/16 22:37 37.9 91 20 169/70 94 Nasal Cannula 2.0 10/21/16 22:35 36.4 60 18 158/83 94 10/21/16 21:25 62 10/21/16 18:17 64 20 167/67 96 10/21/16 16:00 65 20 154/67 95 Physical Exam General Appearance: WD/WN, no apparent distress Eyes: normal inspection, PERRL, EOMI Neck: supple, no adenopathy, thyroid normal, no JVD Respiratory/Chest: chest non-tender, normal breath sounds, no respiratory distress, + decreased breath sounds Cardiovascular: regular rate, rhythm, no edema, no gallop, no JVD, no murmur Abdomen: normal bowel sounds, non tender, soft, no organomegaly Extremities: normal range of motion, non-tender, normal inspection, no pedal edema Neurologic/Psychiatric: no motor/sensory deficits, alert, normal mood/affect, oriented x 3 Laboratory Results Last 24 Hours Test 10/21/16 16:32 10/21/16 18:47 10/21/16 22:12 10/22/16 05:54 Lactic Acid Level 3.1 mmol/L Digoxin Level 0.9 ng/ml Troponin I < 0.015 ng/ml < 0.015 ng/ml White Blood Count 11.35 K/uL Red Blood Count 4.37 M/uL Hemoglobin 13.0 g/dL Hematocrit 40.3 % Mean Corpuscular Volume 92.2 fL Mean Corpuscular Hemoglobin 29.7 pg Mean Corpuscular Hemoglobin Concent 32.3 g/dl Platelet Count 283 K/uL Mean Platelet Volume 9.6 fL Neutrophils (%) (Auto) 83.6 % Lymphocytes (%) (Auto) 11.2 % Monocytes (%) (Auto) 4.8 % Eosinophils (%) (Auto) 0.0 % Basophils (%) (Auto) 0.1 % Neutrophils # (Auto) 9.49 K/uL Lymphocytes # (Auto) 1.27 K/uL Monocytes # (Auto) 0.55 K/uL Eosinophils # (Auto) 0.00 K/uL Basophils # (Auto) 0.01 K/uL RDW Standard Deviation 45.9 fL RDW Coefficient of Variation 13.6 % Immature Granulocyte % (Auto) 0.3 % Immature Granulocyte # (Auto) 0.03 K/uL Sodium Level 140 mmol/L Potassium Level 4.2 mmol/L Chloride Level 101 mmol/L Carbon Dioxide Level 32 mmol/L Anion Gap 7.0 mmol/L Blood Urea Nitrogen 14 mg/dl Creatinine 0.77 mg/dl Est Creatinine Clear Calc Drug Dose 87.6 ml/min Estimated GFR () 92.0 Estimated GFR (Non- 79.3 BUN/Creatinine Ratio 18.6 Random Glucose 148 mg/dl Calcium Level 9.1 mg/dl Test 10/22/16 13:44 Troponin I < 0.015 ng/ml Assessment and Plan Pt is a 70 ye female with hx of COPD, afib, dyslipidemia, neuropathy who presents to ER with worsening sob x 2 days Acute resp failure likely secondary to bronchitis vs developing PNA. Improving, less cough shortness of breath. No CXR findings indicative of infiltrate, however lactate and WBC elev in addition to productive sputum. Initially on levaquin then switched to doxycycline and rocephin due to prolonged QT interval. Cont solumedrol 60 mg IV q 8 hrs and Duonebs q 4 hrs and flutter valve.Obtain sputum and blood cx. Afib currently in NSR, cont flecanide, digoxin and xarelto, rate controlled COPD cont on duonebs, steroids and O2 per protocol Morbid obesity with BMI 49 Hypothyroidism cont synthroid, check TSH Neuropathy stable, cont on neurontin DVT ppx with xarelto Pt is FULL CODE
[2016-10-22] MEDS ORDERED: LEVOFLOXACIN / D5W 750 MG in PREMIXED IN D5W 150 ML IV SCH (16:00)
[2016-10-22] MEDS: DIGOXIN 0.25 MG TAB PO SCH (16:21)
[2016-10-22] MEDS: RIVAROXABAN 10 MG TAB PO SCH (16:21)
[2016-10-22] MEDS: GABAPENTIN 300 MG CAP PO SCH (20:48)
[2016-10-22] MEDS: ATORVASTATIN 20 MG TAB PO SCH (20:48)
[2016-10-23] VITALS (11 sets, daily range): BP systolic 155–169; BP diastolic 68–82; PULSE 52–73; TEMP 36.5–36.9; O2SAT 92–97
[2016-10-23] MEDS: DOXYCYCLINE HYCLATE 100 MG in DEXTROSE 5% 100ML IV SCH ×2 (03:08→14:54)
[2016-10-23 05:41] LABS: BASO % 0.1 %; BASO ABS # 0.01 K/uL (0-0.2); COMPLETE YES; HEMATOCRIT 40.1 % (37-47); IG% 0.3 %; LYMPH % 10.6 %; LYMPH ABS # 1.08 K/uL (1.2-3.4); MEAN CELL VOLUME 92.8 fL (80-100); MEAN CORPUSCULAR HEMOGLOBIN 29.9 pg (25-34); MEAN CORPUSCULAR HGB CONC 32.2 g/dl (32-36); MEAN PLATELET VOLUME 9.5 fL (7.4-10.4); MONO % 2.1 %; NEUT % 86.9 %; PLATELET COUNT 258 K/uL (130-400); RED BLOOD COUNT 4.32 M/uL (4.2-5.4); WHITE BLOOD COUNT 10.19 K/uL (4.8-10.8)
[2016-10-23] MEDS: LEVOTHYROXINE 75 MCG TAB PO SCH (05:57)
[2016-10-23 06:25] LABS: BUN/CREATININE RATIO 23.4 (10-20); CALCIUM 8.5 mg/dl (8.5-10.1); CREATININE 0.86 mg/dl (0.60-1.20); POTASSIUM 4.3 mmol/L (3.5-5.1)
[2016-10-23] MEDS: ALBUT/IPRATROP 3MG/0.5MG NEB 3 ML VIAL INH SCH ×4 (07:20→19:22)
[2016-10-23] MEDS: METHYLPREDNISOLONE IV 60 MG in SYRINGE 0 ML IV SCH (08:53)
[2016-10-23] MEDS: FUROSEMIDE 20 MG TAB PO SCH (08:53)
[2016-10-23] MEDS: CYANOCOBALAMIN 500 MCG TAB (VIT B-12) PO SCH (08:53)
[2016-10-23] MEDS: FLECAINIDE ACETATE 100 MG TAB PO SCH ×2 (08:53→20:53)
[2016-10-23] MEDS: DOCUSATE SODIUM 100 MG CAP PO SCH (08:53)
[2016-10-23] MEDS: METOPROLOL SUCC 50MG EXT REL TAB PO SCH (08:53)
[2016-10-23] MEDS: PANTOprazole SOD 40 MG TAB PO SCH (08:53)
--- NOTE | 2016-10-23 15:30 | Hospitalist Progress Note ---
Hospitalist Progress Note Date of Service October 23, 2016. (Ernie Sims, CALIXTO) Subjective Pt evaluation today including: conversation w/ patient, physical exam, chart review, lab review, review of studies, review of inpatient medication list Pain: denies PO Intake: tolerating PO Voiding: no voiding problems still feels ARMANDO with exertion. Not ready to go home. Still weak. No chest pain. Constitutional: No see HPI, No fever, No chills, No sweats, No weight loss, No weakness, No fatigue, No problem reported ENT: No see HPI, No hearing loss, No unusual epistaxis, No nasal symptoms, No sore throat, No tinnitus, No dental problems, No trouble swallowing, No problem reported Respiratory: + cough, + shortness of breath, + dyspnea on exertion Cardiovascular: No see HPI, No chest pain, No orthopnea, No PND, No edema, No claudication, No palpitations, No problem reported Abdomen: No see HPI, No pain, No nausea, No vomiting, No diarrhea, No constipation, No GI bleeding, No problem reported Musculoskeletal: No see HPI, No joint pain, No muscle pain, No swelling, No calf pain, No problem reported Neurologic: + weakness (general) Psychiatric: No see HPI, No depression symptoms, No anhedonism, No anxiety, No insomnia, No substance abuse, No problem reported Endo: No see HPI, No fatigue, No excessive thirst, No excessive urination, No problem reported (Ernie Sims, CAL[place]) Medications reviewed (Ernie Sims, CAL[place]) Objective Vital Signs Date Time Temp Pulse Resp B/P Pulse Ox O2 Delivery O2 Flow Rate FiO2 10/23/16 15:04 36.9 73 20 168/72 95 Nasal Cannula 2.0 10/23/16 12:00 Nasal Cannula 2.0 10/23/16 11:14 36.7 54 20 167/82 96 Nasal Cannula 2.0 10/23/16 10:52 61 18 97 Nasal Cannula 2.0 10/23/16 08:53 64 10/23/16 08:05 Nasal Cannula 2.0 10/23/16 07:20 52 18 97 Nasal Cannula 2.0 10/23/16 07:19 36.7 68 20 155/68 92 10/23/16 04:56 36.5 55 20 169/73 96 Nasal Cannula 2.0 10/23/16 04:00 Nasal Cannula 2.0 10/23/16 00:00 Nasal Cannula 2.0 10/22/16 23:25 36.5 59 20 167/82 96 Nasal Cannula 2.0 10/22/16 20:00 96 Nasal Cannula 2.0 Humidified Oxygen 10/22/16 19:46 36.6 67 18 158/70 93 Nasal Cannula 2.0 10/22/16 19:00 68 20 97 Nasal Cannula 2.0 10/22/16 16:21 67 10/22/16 16:00 96 Nasal Cannula 2.0 Humidified Oxygen 10/22/16 15:52 36.9 52 16 149/78 96 Nasal Cannula 2.0 10/22/16 15:42 64 20 98 Nasal Cannula 2.0 (Ernie Sims ., [place]) Physical Exam General Appearance: no apparent distress Eyes: sclerae normal ENT: hearing grossly normal, pharynx normal Neck: supple, no JVD Respiratory/Chest: + wheezing Cardiovascular: regular rate, rhythm, no edema, no JVD Abdomen: normal bowel sounds, non tender, soft Extremities: + swelling (venous stasis discoloration) Neurologic/Psychiatric: no motor/sensory deficits, alert, oriented x 3 Skin: normal color, warm/dry, no rash (Ernie Sims ., [place]) Laboratory Results Last 24 Hours Test 10/22/16 16:03 10/23/16 05:10 Lactic Acid Level 1.8 mmol/L White Blood Count 10.19 K/uL Red Blood Count 4.32 M/uL Hemoglobin 12.9 g/dL Hematocrit 40.1 % Mean Corpuscular Volume 92.8 fL Mean Corpuscular Hemoglobin 29.9 pg Mean Corpuscular Hemoglobin Concent 32.2 g/dl Platelet Count 258 K/uL Mean Platelet Volume 9.5 fL Neutrophils (%) (Auto) 86.9 % Lymphocytes (%) (Auto) 10.6 % Monocytes (%) (Auto) 2.1 % Eosinophils (%) (Auto) 0.0 % Basophils (%) (Auto) 0.1 % Neutrophils # (Auto) 8.86 K/uL Lymphocytes # (Auto) 1.08 K/uL Monocytes # (Auto) 0.21 K/uL Eosinophils # (Auto) 0.00 K/uL Basophils # (Auto) 0.01 K/uL RDW Standard Deviation 46.3 fL RDW Coefficient of Variation 13.5 % Immature Granulocyte % (Auto) 0.3 % Immature Granulocyte # (Auto) 0.03 K/uL Sodium Level 140 mmol/L Potassium Level 4.3 mmol/L Chloride Level 102 mmol/L Carbon Dioxide Level 34 mmol/L Anion Gap 4.0 mmol/L Blood Urea Nitrogen 20 mg/dl Creatinine 0.86 mg/dl Est Creatinine Clear Calc Drug Dose 78.5 ml/min Estimated GFR () 80.5 Estimated GFR (Non- 69.4 BUN/Creatinine Ratio 23.4 Random Glucose 174 mg/dl Calcium Level 8.5 mg/dl (Ernie Sims CRNP) Assessment and Plan Pt is a 70 ye female with hx of COPD, afib, dyslipidemia, neuropathy who presents to ER with worsening sob x 2 days 1. Acute resp failure likely secondary to bronchitis vs developing PNA. - still feels short of breath with exertion, cough less -Initially on levaquin - switched to doxycycline and rocephin due to prolonged QT interval. - taper solumedrol to 40mg IV Q8h - cont duonebs. sputum normal rubén. 2. Afib (paroxysmal) -currently in NSR. cont flecanide, digoxin and xarelto 3. Acute exac COPD -cont on duonebs, steroids, Doxy and O2 per protocol 4. Weakness - PT/OT 5. DVT ppx with xarelto 6. Pt is FULL CODE 7. disposition - home in likely 2 days - taper steroids, cont PT/OT Continued [facility] stay due to: multiple IV medications needed Discharge planning: home with home health, uncertain (Ernie Sims CRNP) History Chart reviewed and I agree with INTERIOR DESIGN DIRECTOR plan of care (Ananya Fair MD)
[2016-10-23] MEDS: DIGOXIN 0.25 MG TAB PO SCH (16:27)
[2016-10-23] MEDS: RIVAROXABAN 10 MG TAB PO SCH (16:27)
[2016-10-23] MEDS: CEFTRIAXONE SOD INJ 2000 MG in DEXTROSE 5% 50ML IV SCH (17:13)
[2016-10-23] MEDS: METHYLPREDNISOLONE IV 40 MG in SYRINGE 0 ML IV SCH (20:53)
[2016-10-23] MEDS: ATORVASTATIN 20 MG TAB PO SCH (20:53)
[2016-10-23] MEDS: GABAPENTIN 300 MG CAP PO SCH (20:53)
[2016-10-24] VITALS (14 sets, daily range): BP systolic 131–188; BP diastolic 60–79; PULSE 52–87; TEMP 36.3–36.9; O2SAT 92–98
[2016-10-24] MEDS: LEVOTHYROXINE 75 MCG TAB PO SCH (06:13)
[2016-10-24] MEDS: DOXYCYCLINE HYCLATE 100 MG CAP PO SCH ×2 (06:13→20:56)
[2016-10-24] MEDS: ALBUT/IPRATROP 3MG/0.5MG NEB 3 ML VIAL INH SCH ×4 (06:54→19:27)
[2016-10-24 07:32] LABS: BASO % 0.2 %; BASO ABS # 0.02 K/uL (0-0.2); COMPLETE YES; HEMATOCRIT 40.4 % (37-47); IG% 0.4 %; LYMPH % 14.8 %; LYMPH ABS # 1.82 K/uL (1.2-3.4); MEAN CELL VOLUME 92.2 fL (80-100); MEAN CORPUSCULAR HEMOGLOBIN 29.7 pg (25-34); MEAN CORPUSCULAR HGB CONC 32.2 g/dl (32-36); MEAN PLATELET VOLUME 9.3 fL (7.4-10.4); MONO % 5.7 %; NEUT % 78.9 %; PLATELET COUNT 268 K/uL (130-400); RED BLOOD COUNT 4.38 M/uL (4.2-5.4)
[2016-10-24] MEDS: FLECAINIDE ACETATE 100 MG TAB PO SCH ×2 (08:17→20:56)
[2016-10-24] MEDS: FUROSEMIDE 20 MG TAB PO SCH (08:17)
[2016-10-24] MEDS: PANTOprazole SOD 40 MG TAB PO SCH (08:17)
[2016-10-24] MEDS: CYANOCOBALAMIN 500 MCG TAB (VIT B-12) PO SCH (08:17)
[2016-10-24] MEDS: DOCUSATE SODIUM 100 MG CAP PO SCH (08:18)
[2016-10-24] MEDS: METHYLPREDNISOLONE IV 40 MG in SYRINGE 0 ML IV SCH (08:18)
[2016-10-24] MEDS: METOPROLOL SUCC 50MG EXT REL TAB PO SCH (08:18)
[2016-10-24 08:50] LABS: BLOOD UREA NITROGEN 20 mg/dl (7-18); BUN/CREATININE RATIO 26.1 (10-20); CALCIUM 8.8 mg/dl (8.5-10.1); CARBON DIOXIDE 34 mmol/L (21-32); CHLORIDE 102 mmol/L (98-107); CREATININE 0.77 mg/dl (0.60-1.20); GLUCOSE 120 mg/dl (70-99); SODIUM 140 mmol/L (136-145)
[2016-10-24] MEDS ORDERED: DOXYCYCLINE HYCLATE 100 MG CAP PO SCH (09:00)
--- NOTE | 2016-10-24 13:16 | Hospitalist Progress Note ---
Hospitalist Progress Note Date of Service October 24, 2016. (Ernie Sims, [place]) Subjective Pt evaluation today including: conversation w/ patient, physical exam, lab review, review of inpatient medication list Pain: denies PO Intake: tolerating PO Voiding: no voiding problems still feels SOB with exertion feels like has to cough something up no chest pain no energy Constitutional: No see HPI, No fever, No chills, No sweats, No weight loss, No weakness, No fatigue, No problem reported ENT: No see HPI, No hearing loss, No unusual epistaxis, No nasal symptoms, No sore throat, No tinnitus, No dental problems, No trouble swallowing, No problem reported Respiratory: + cough, + wheezing, + shortness of breath Cardiovascular: No see HPI, No chest pain, No orthopnea, No PND, No edema, No claudication, No palpitations, No problem reported Abdomen: No see HPI, No pain, No nausea, No vomiting, No diarrhea, No constipation, No GI bleeding, No problem reported Musculoskeletal: No see HPI, No joint pain, No muscle pain, No swelling, No calf pain, No problem reported Neurologic: No see HPI, No memory loss, No paralysis, No weakness, No numbness/tingling, No vertigo, No balance problems, No problem reported Endo: + fatigue Skin: No see HPI, No rash, No itch, No new/changing skin lesions, No color change, No bleeding, No problem reported (Ernie Sims, [place]) Medications reviewed (Ernie Sims, [place]) Objective Vital Signs Date Time Temp Pulse Resp B/P Pulse Ox O2 Delivery O2 Flow Rate FiO2 10/24/16 11:26 36.9 62 20 131/71 95 Nasal Cannula 2.0 10/24/16 11:00 54 18 97 Nasal Cannula 2.0 10/24/16 08:16 62 10/24/16 07:59 Nasal Cannula 2.0 10/24/16 07:22 54 20 169/72 97 Nasal Cannula 2.0 10/24/16 06:54 53 18 97 Nasal Cannula 2.0 10/24/16 05:00 36.6 52 18 166/68 98 Nasal Cannula 2.0 10/24/16 04:00 97 Nasal Cannula 2.0 10/24/16 00:41 36.9 56 18 131/70 97 2.0 10/24/16 00:00 97 Nasal Cannula 2.0 10/23/16 22:34 36.6 55 20 168/72 94 Nasal Cannula 2.0 10/23/16 19:51 Nasal Cannula 2.0 10/23/16 19:22 71 18 97 Nasal Cannula 2.0 10/23/16 19:13 36.6 59 20 159/75 94 Nasal Cannula 2.0 10/23/16 16:27 64 10/23/16 16:12 Nasal Cannula 2.0 10/23/16 15:48 66 18 96 Nasal Cannula 2.0 10/23/16 15:04 36.9 73 20 168/72 95 Nasal Cannula 2.0 (Ernie Sims, [place]) Physical Exam General Appearance: no apparent distress Eyes: PERRL, sclerae normal ENT: hearing grossly normal, pharynx normal Neck: supple, no JVD Respiratory/Chest: + rhonchi, + wheezing Cardiovascular: regular rate, rhythm, no edema, no JVD, no murmur Abdomen: normal bowel sounds, non tender, soft Extremities: non-tender, no pedal edema, no calf tenderness Neurologic/Psychiatric: alert, normal mood/affect, oriented x 3 Skin: normal color, warm/dry, no rash (Ernie Sism, [place]) Laboratory Results Last 24 Hours Test 10/24/16 07:16 10/24/16 09:05 White Blood Count 12.30 K/uL Red Blood Count 4.38 M/uL Hemoglobin 13.0 g/dL Hematocrit 40.4 % Mean Corpuscular Volume 92.2 fL Mean Corpuscular Hemoglobin 29.7 pg Mean Corpuscular Hemoglobin Concent 32.2 g/dl Platelet Count 268 K/uL Mean Platelet Volume 9.3 fL Neutrophils (%) (Auto) 78.9 % Lymphocytes (%) (Auto) 14.8 % Monocytes (%) (Auto) 5.7 % Eosinophils (%) (Auto) 0.0 % Basophils (%) (Auto) 0.2 % Neutrophils # (Auto) 9.71 K/uL Lymphocytes # (Auto) 1.82 K/uL Monocytes # (Auto) 0.70 K/uL Eosinophils # (Auto) 0.00 K/uL Basophils # (Auto) 0.02 K/uL RDW Standard Deviation 45.7 fL RDW Coefficient of Variation 13.6 % Immature Granulocyte % (Auto) 0.4 % Immature Granulocyte # (Auto) 0.05 K/uL Sodium Level 140 mmol/L Potassium Level mmol/L 3.9 mmol/L Chloride Level 102 mmol/L Carbon Dioxide Level 34 mmol/L Anion Gap 4.0 mmol/L Blood Urea Nitrogen 20 mg/dl Creatinine 0.77 mg/dl Est Creatinine Clear Calc Drug Dose 87.8 ml/min Estimated GFR () 92.0 Estimated GFR (Non- 79.3 BUN/Creatinine Ratio 26.1 Random Glucose 120 mg/dl Calcium Level 8.8 mg/dl (Ernie Smis CRNP) Assessment and Plan Pt is a 70 ye female with hx of COPD, afib, dyslipidemia, neuropathy who presents to ER with worsening sob x 2 days 1. Acute resp failure likely secondary to bronchitis vs developing PNA. - still feels short of breath with exertion, cough less -Initially on levaquin - switched to doxycycline and rocephin due to prolonged QT interval. - change steroids to PO - cont duonebs. - sputum normal rubén. 2. Afib (paroxysmal) -currently in NSR. cont flecanide, digoxin and xarelto 3. Acute exac COPD -cont on duonebs, taper steroids to PO, Doxy and O2 per protocol 4. Weakness - PT/OT 5. DVT ppx with xarelto 6. Pt is FULL CODE 7. disposition - home likely tomorrow. taper steroids, cont PT/OT Continued [facility] stay due to: multiple IV medications needed Discharge planning: home with home health (Ernie Sims CRNP) History Chart reviewed and I agree with HAND GRINDER plan of care (Ananya Fair MD)
[2016-10-24] MEDS: RIVAROXABAN 10 MG TAB PO SCH (16:10)
[2016-10-24] MEDS: DIGOXIN 0.25 MG TAB PO SCH (16:10)
[2016-10-24] MEDS: CEFTRIAXONE SOD INJ 2000 MG in DEXTROSE 5% 50ML IV SCH (16:13)
[2016-10-24] MEDS: ATORVASTATIN 20 MG TAB PO SCH (20:56)
[2016-10-24] MEDS: GABAPENTIN 300 MG CAP PO SCH (20:56)
[2016-10-25] VITALS (9 sets, daily range): BP systolic 128–168; BP diastolic 66–75; PULSE 47–125; TEMP 36.8–37.4; O2SAT 92–98
[2016-10-25] MEDS: LEVOTHYROXINE 75 MCG TAB PO SCH (05:30)
[2016-10-25 05:55] LABS: BASO % 0.2 %; BASO ABS # 0.02 K/uL (0-0.2); COMPLETE YES; HEMATOCRIT 42.1 % (37-47); IG% 0.3 %; LYMPH % 11.9 %; LYMPH ABS # 1.42 K/uL (1.2-3.4); MEAN CELL VOLUME 93.1 fL (80-100); MEAN CORPUSCULAR HEMOGLOBIN 29.4 pg (25-34); MEAN CORPUSCULAR HGB CONC 31.6 g/dl (32-36); MEAN PLATELET VOLUME 9.9 fL (7.4-10.4); NEUT % 83.6 %; PLATELET COUNT 269 K/uL (130-400); RED BLOOD COUNT 4.52 M/uL (4.2-5.4); WHITE BLOOD COUNT 11.91 K/uL (4.8-10.8)
[2016-10-25 06:32] LABS: BUN/CREATININE RATIO 26.8 (10-20); CALCIUM 8.5 mg/dl (8.5-10.1); CREATININE 0.77 mg/dl (0.60-1.20); POTASSIUM 4.5 mmol/L (3.5-5.1)
[2016-10-25] MEDS: ALBUT/IPRATROP 3MG/0.5MG NEB 3 ML VIAL INH SCH ×2 (07:10→11:10)
[2016-10-25] MEDS: DOCUSATE SODIUM 100 MG CAP PO SCH (08:03)
[2016-10-25] MEDS: CYANOCOBALAMIN 500 MCG TAB (VIT B-12) PO SCH (08:03)
[2016-10-25] MEDS: DOXYCYCLINE HYCLATE 100 MG CAP PO SCH (08:03)
[2016-10-25] MEDS: PANTOprazole SOD 40 MG TAB PO SCH (08:03)
[2016-10-25] MEDS: FLECAINIDE ACETATE 100 MG TAB PO SCH (08:03)
[2016-10-25] MEDS: METOPROLOL SUCC 50MG EXT REL TAB PO SCH (08:04)
[2016-10-25] MEDS: FUROSEMIDE 20 MG TAB PO SCH (08:04)
[2016-10-25] MEDS ORDERED: PRD20 PO (11:45)
[2016-10-25] MEDS ORDERED: DXY100 PO (11:45)
--- NOTE | 2016-10-25 11:47 | Discharge Instructions ---
Discharge Instructions Date of Service October 25, 2016. Admission Reason for Admission: Copd Exacerbation, Hypoxia Discharge Discharge Diagnosis / Problem: acute exacerbation of COPD Discharge Goals Goal(s): Improve function, Increase independence, Improve disease control Activity Recommendations Activity Limitations: resume your previous activity . Instructions / Follow-Up Instructions / Follow-Up will need to follow up with your family provider in the next week continue to use oxygen at night and continue to use nebulizers Current Hospital Diet Patient's current hospital diet: Low Fat Diet Discharge Diet Recommended Diet: AHA Diet (Heart Healthy), Low Sodium Diet (2gm Na) Pending Studies Studies pending at discharge: no Medical Emergencies . Who to Call and When: Medical Emergencies: If at any time you feel your situation is an emergency, please call 911 immediately. . Non-Emergent Contact Non-Emergency issues call your: Primary Care Provider Call Non-Emergent contact if: temperature is above 101.5 . . "Provider Documentation" section prepared by Ernie Sims. . VTE Core Measure Inpt VTE Proph given/why not?: Other Anticoagulation
--- NOTE | 2016-10-25 12:01 | Discharge Summary ---
Discharge Summary Date of Service October 25, 2016. (Ernie Sims CRNP) Discharge Summary Admission Date: October 21, 2016 at 16:07 Discharge Date: October 25, 2016 Discharge Disposition: Home with services Principal Diagnosis: acute exac COPD with hypoxic respiratory failure and acute bronchitis Problems/Secondary Diagnoses: paroxysmal atrial fibrillation hypertension weakness Immunizations: Have You Had Influenza Vaccine: Yes Influenza Vaccine Date: Mar 02, 2013 History of Tetanus Vaccine?: UTD History of Pneumococcal: Yes History of Hepatitis B Vaccine: No Consultations: none (Ernie Sims CRNP) Medication Reconciliation New Medications: Doxycycline Hyclate (Doxycycline Hyclate) 100 Mg Cap 100 MG PO BID, #14 CAP 0 Refills Prednisone (Prednisone) 20 Mg Tab 60 MG PO QD, #13 TAB 0 Refills 60mg daily x 2 40mg daily x 2 20mg daily x 2 10mg daily x 2 Continued Medications: Acetaminophen (Tylenol) 325 Mg Tab 650 MG PO Q4H PRN for Mild Pain, TAB NEEDED FOR MILD PAIN RATED 1-3 ON A SCALE OF "0-10". MAXIMUM OF 3 GMS APAP/24 HOURS. Atorvastatin (Lipitor) 20 Mg Tab 20 MG PO QPM, TAB Bisacodyl (Dulcolax) 10 Mg Sup 1 SUPP [place] UD PRN for No Bowel Movement/Constipation, SUP IF NO BM ON THE 4TH DAY INSERT SUPP RECTALLY IN THE AM IF NO RESULT FROM LAXATIVE Calcium Carbonate-Vitamin D (Calcium 500 + D) 1 Tab Tab 1 TABLET PO BID Cyanocobalamin (Vitamin B-12) 500 Mcg Tab 500 MCG PO DAILY, TAB Digoxin (Digox) 250 Mcg Tab 250 MG PO DAILY Docusate Sodium (Docusate Sodium) 100 Mg Cap 100 MG PO DAILY Flecainide (Tambocor) 100 Mg Tab 100 MG PO Q12, TAB Furosemide (Lasix) 40 Mg Tab 20 MG PO DAILY, TAB 1/2 40MG TAB FOR 20MG DOSE Gabapentin (Neurontin) 300 Mg Cap 300 MG PO DAILY, CAP [id number]-[id number] (Artificial Tears) 1 Tomy Tomy 2 DROPS OPB QID PRN for DRY EYES Ipratropium Windber (Ipratropium Windber) 0.5 Mg/2.5 Ml Nebu 1 TREATMENT INH QID Ipratropium Windber (Atrovent Hfa) 200 Puffs/3400 Mcg Aers 2 PUFFS INH QID, #12.9 GM 3 Refills Levothyroxine Sodium (Synthroid) 75 Mcg Tab 75 MCG PO QAM, TAB Magnesium Hydroxide (Milk Of Magnesia) 30 Ml Susp 30 ML PO UD PRN for No Bowel Movement/Constipation, ML IF NO BM ON THE 3RD DAY GIVE MOM IN MORNING NEEDED Metoprolol Succ (Toprol Xl) (Toprol-Xl ) 100 Mg Tabcr 100 MG PO DAILY, TAB Oxygen (Oxygen) Gas 2 LITERS NA HS Pantoprazole (Protonix) 40 Mg Tab 40 MG PO DAILY, TAB Polyethylene Glycol 3350 (Miralax) 1 Pow Pow 17 GM PO Q24H PRN for Constipation Rivaroxaban (Xarelto) 20 Mg Tab 20 MG PO DAILY@1645, TAB Senna/Docusate Sod (Senokot S) 1 Tab Tab 1 TABLET PO DAILY Sodium Phosphate/Biphosphate (Fleet Enema) Laura 1 EA W[place] UD PRN for No Bowel Movement/Constipation, BTL IF NO BM ON THE 4TH DAY USE ENEMA RECTALLY FOLLOWING SUPP PRN...IF NO RESULT NOTIFY MD Discharge Exam Review of Systems: Constitutional: No fever, No chills, No sweats, No weight loss, No weakness , No fatigue, No problem reported Eyes: No worsening of vision, No eye pain, No redness, No discharge, No diplopia, No problem reported Respiratory: + cough Cardiovascular: No chest pain, No orthopnea, No PND, No edema, No claudication, No palpitations, No problem reported Abdomen: No pain, No nausea, No vomiting, No diarrhea, No constipation, No GI bleeding, No problem reported Neurologic: No memory loss, No paralysis, No weakness, No numbness/tingling , No vertigo, No balance problems, No problem reported Endocrine: No fatigue, No excessive thirst, No excessive urination, No problem reported Physical Exam: General Appearance: no apparent distress Eyes: PERRL, sclerae normal ENT: hearing grossly normal, pharynx normal Neck: supple, no JVD Respiratory/Chest: chest non-tender, no respiratory distress, no accessory muscle use, + wheezing Cardiovascular: regular rate, rhythm, no edema, no murmur, normal peripheral pulses Abdomen / GI: normal bowel sounds, non tender, soft Extremities: normal inspection, no pedal edema Neurologic/Psychiatric: alert, normal mood/affect, oriented x 3 Skin: normal color, warm/dry, no rash (Ernie Sims CRNP) Hospital Course Pt is a 70 year old female with a history of COPD, paroxysmal afib on Xarelto, neuropathy, hypothyroidism who presented to the ED with worsening shortness of breath that started a few weeks ago but worsened a couple days ago. She saw her PCP Dr Venegas's PA 2 days ago and was given steroid taper in addition to Augmentin. Pt reports CXR also done but no PNA reported at that time. She states she did not improve on this regimen and states she was wearing her O2 during the day in addition to her usual (only wearing it at night) and noted worsening cough with productive yellowish-greenish sputum. She had occasional chills but no fevers. No chest pain, palpitations, leg swelling, N/V/D. The patient says that she had pneumonia a couple years ago, and feels much worse now than she did when she had it back then. Her pulse ox was only 85% initially and she was placed under the hospitalist service. She had an acute resp failure likely secondary to bronchitis vs developing pneumonia. She was initially on Levaquin, however a prolonged QT was noted and she was switched to doxy and Rocephin. She was on IV solumedrol, duonebs and required supplemental oxygen 24 hours instead of just at HS like at home. Sputum culture showed normal rubén. Her steroids were tapered to oral yesterday. She was feeling weak and physical therapy saw her. She did well with them. She is back to room air. Her lungs are with better air movement and less wheezing. She has been afebrile and will be discharged home with a home nurse. Total Time Spent: Greater than 30 minutes This includes examination of the patient, discharge planning, medication reconciliation, and communication with other providers. (Ernie Sims CRNP) Attending Attestation: Chart reviewed in detail. I agree with the cisneros components of CALIXTO Sims's discharge summary. Steven Barton MD (Steven Barton MD) Discharge Instructions Please refer to the electronic Patient Visit Report (Discharge Instructions) for additional information. (Ernie Sims CRNP) Follow-Up Dr. Venegas 1 week (Ernie Sims CRNP)
== END 2016-10-25 15:15 | disposition home health service (06) | DRG 189 ==
LOC: CANRESERV → ENRESERVTM → ENRESERVDT → C.EDB 10:38 → C.MED 16:07
PROVIDERS: ADMIT Hospitalist; ATTEND Hospitalist
DX: J96.00 Acute respiratory failure, unspecified whether with hypoxia or hypercapnia (principal); J18.9 Pneumonia, unspecified organism; J44.0 Chronic obstructive pulmonary disease with (acute) lower respiratory infection; Z68.42 Body mass index [BMI] 45.0-49.9, adult; J45.909 Unspecified asthma, uncomplicated; I48.91 Unspecified atrial fibrillation; J20.9 Acute bronchitis, unspecified; E78.5 Hyperlipidemia, unspecified; E66.01 Morbid (severe) obesity due to excess calories; Z79.52 Long term (current) use of systemic steroids; Z90.49 Acquired absence of other specified parts of digestive tract; Z90.710 Acquired absence of both cervix and uterus; R06.02 Shortness of breath

== ENCOUNTER → 2016-11-09 | Outpatient (CLI) | payer OTHER ==
[~2016-11-09] MED LIST changes: -ALUMSUS2 PO; +ATOR-22 PO; +ATRIN INH; -CRDCD240 PO; +DIGO0.2519 PO; -DIGO250T14 PO; +DXY100 PO; +FLEC100T21 PO; +FURO40TA3 PO; -GFNSR600 PO; -HYG/25 PO; -LACT10SO30 PO; -LACT1TAB4 PO; -LIDO5DIS10 TD; -OXYC-57 PO; -PLMINS INH; +PRD20 PO; +RIVA1TAB4 PO; -SIMV20TA5 PO; -TMB100 PO; -XPNINS INH; -XRL20 PO
--- NOTE | 2016-11-09 13:13 | MAMMOGRAPHY REPORT ---
BILATERAL DIGITAL DIAGNOSTIC MAMMOGRAM TOMOSYNTHESIS WITH CAD: 11/09/2016 CLINICAL HISTORY: Close follow-up of 2 adjacent clusters of microcalcifications in the 12:00 right br east. TECHNIQUE: Bilateral CC and MLO 2-D digital and tomosynthesis images, repeat MLO 2-D views and spot m agnification right CC and ML views were obtained. Current study was also evaluated with a Computer A ided Detection (CAD) system. COMPARISON: Comparison is made to exams dated: 10/21/2015 mammogram, 04/22/2015 mammogram, 10/18/2014 ultrasound, and 10/18/2014 mammogram - [facility]. BREAST COMPOSITION: There are scattered areas of fibroglandular density in both breasts. FINDINGS: The parenchymal pattern is similar to prior mammograms. There are a few benign rim calcifi cations in the breasts. Minimal vascular calcification. There are stable clusters of coarse heterog eneous microcalcifications in the upper outer middle one third of the right breast, the upper outer m iddle one third of the left breast and smaller clusters of microcalcifications in the 12:00 middle on e third of the right breast. Based on the spot magnification views and comparing to prior spot magni fication views, these 2 clusters of microcalcifications are unchanged dating back to at least 015, most likely benign. No associated architectural distortion or obvious mass. No new suspicious mass, architectural distortion or other cluster of microcalcifications is seen bilaterally. IMPRESSION: ACR-BI-RADS CATEGORY 3: PROBABLY BENIGN Stable bilateral mammograms, including 2 stable clusters of microcalcifications in the 12:00 right br east. Longer stability as needed and repeat spot magnification views are recommended in 12 more stew hs. Annual bilateral screening mammography will also be due at that time. These results and recommendations were discussed with the patient at the time of the exam. She tenta tively scheduled the follow-up appointment prior to leaving our department. Approximately 10% of breast cancers are not detected with mammography. A negative mammographic report should not delay biopsy if a clinically suggestive mass is present. Mayi Tellez M.D. ay/:11/09/2016 11:49:41 Cross Tie Turner: Priya JEWELL(Justin)(Michael), [facility] letter sent: Follow Up Recommended 3 BI-RADS Code: ACR-BI-RADS Category 3: Probably Benign
== END | disposition home or self-care (01) ==
LOC: C.MAMM 10:55
PROVIDERS: ATTEND Internal Medicine
DX: R92.0 Mammographic microcalcification found on diagnostic imaging of breast (principal)

== ENCOUNTER → 2016-11-19 | Outpatient (CLI) | payer OTHER ==
[2016-11-19 17:41] LABS: BASO % 0.5 %; BASO ABS # 0.04 K/uL (0-0.2); COMPLETE YES; HEMATOCRIT 41.9 % (37-47); IG% 0.5 %; LYMPH % 27.7 %; LYMPH ABS # 2.33 K/uL (1.2-3.4); MEAN CELL VOLUME 93.3 fL (80-100); MEAN CORPUSCULAR HEMOGLOBIN 28.3 pg (25-34); MEAN CORPUSCULAR HGB CONC 30.3 g/dl (32-36); MEAN PLATELET VOLUME 9.7 fL (7.4-10.4); MONO % 8.1 %; NEUT % 58.2 %; PLATELET COUNT 293 K/uL (130-400); RED BLOOD COUNT 4.49 M/uL (4.2-5.4)
[2016-11-19 18:18] LABS: ALT/SGPT 25 U/L (12-78); BLOOD UREA NITROGEN 12 mg/dl (7-18); BUN/CREATININE RATIO 14.3 (10-20); CALCIUM 9.3 mg/dl (8.5-10.1); CARBON DIOXIDE 33 mmol/L (21-32); CHLORIDE 100 mmol/L (98-107); CHOLESTEROL 150 mg/dl (0-200); CREATININE 0.81 mg/dl (0.60-1.20); GLUCOSE 121 mg/dl (70-99); POTASSIUM 3.9 mmol/L (3.5-5.1); SODIUM 141 mmol/L (136-145); TRIGLYCERIDES 188 mg/dl (0-150); VERY LOW DENSITY LIPOPROT CALC 38 mg/dl
[2016-11-19 18:29] LABS: ALB/GLOB RATIO 0.7 (0.9-2); ALKALINE PHOSPHATASE 97 U/L (45-117); AST/SGOT 21 U/L (15-37); CHOLESTEROL/HDL RATIO 3.3; HDL CHOLESTEROL 46 mg/dl; LDL CHOLESTEROL CALCULATED 66 mg/dl
[2016-11-20 06:23] LABS: ESTIMATED AVERAGE GLUCOSE 148 mg/dl; HA1C FLAG Normal (Normal)
== END | disposition home or self-care (01) ==
LOC: C.LABBFT 12:10
PROVIDERS: ATTEND Internal Medicine
DX: J44.9 Chronic obstructive pulmonary disease, unspecified (principal); E78.00 Pure hypercholesterolemia, unspecified; E03.9 Hypothyroidism, unspecified; R73.01 Impaired fasting glucose

== ENCOUNTER 2017-06-15 14:44 | Inpatient (IN) | payer OTHER ==
[~2017-06-15] VITALS: Ht 157.5 cm; Wt 102.2 kg
[2017-06-15] MEDS ORDERED: ALBUT/IPRATROP 3MG/0.5MG NEB 3 ML VIAL INH STA ×2 (14:58→16:25)
[2017-06-15] MEDS ORDERED: OSELTAMIVIR PHOSPHATE 75 MG CAP PO STA (14:58)
[2017-06-15] MEDS ORDERED: METHYLPREDNISOLONE 125 MG VIAL IV STA (14:58)
[2017-06-15] MEDS ORDERED: OXGN (15:28)
[2017-06-15] MEDS ORDERED: CYAN500T PO (15:28)
[2017-06-15] MEDS ORDERED: LPT20 PO (15:28)
[2017-06-15] MEDS ORDERED: IPRLVL INH (15:28)
[2017-06-15] MEDS ORDERED: DOCU100C31 PO (15:28)
[2017-06-15] MEDS ORDERED: ACET-1693 PO (15:28)
[2017-06-15] MEDS ORDERED: XRL20 PO (15:28)
[2017-06-15] MEDS ORDERED: CALC-20 PO (15:28)
[2017-06-15] MEDS ORDERED: PRED10TA PO (15:28)
[2017-06-15] MEDS ORDERED: ARTISOL12 OPB (15:28)
[2017-06-15] MEDS ORDERED: LEVO75TA5 PO (15:28)
[2017-06-15] MEDS ORDERED: LNX25 PO (15:28)
[2017-06-15] MEDS ORDERED: METO100T44 PO (15:28)
[2017-06-15] MEDS ORDERED: ATRIN INH (15:28)
[2017-06-15] MEDS ORDERED: AMOX875T PO (15:28)
[2017-06-15] MEDS ORDERED: LATA0.009 OPB (15:28)
[2017-06-15] MEDS ORDERED: CYCL0.052 OPB (15:28)
[2017-06-15] MEDS ORDERED: GABA-113 PO (15:28)
[2017-06-15] MEDS ORDERED: FRS/40 PO (15:28)
[2017-06-15] MEDS ORDERED: SENN1TAB65 PO (15:28)
[2017-06-15] MEDS ORDERED: TMB100 PO (15:28)
[2017-06-15] MEDS ORDERED: PANT40TA PO (15:28)
--- NOTE | 2017-06-15 15:38 | DIAGNOSTIC IMAGING REPORT ---
CHEST ONE VIEW PORTABLE CLINICAL HISTORY: Symptoms of pneumonia COMPARISON STUDY: 10/21/2016 FINDINGS: The heart remains enlarged. There is mild central vascular prominence without evidence of overt failure. There are no pleural effusions. There is no focal pulmonary consolidation.[ IMPRESSION: Cardiomegaly. No evidence of focal pulmonary consolidation. Electronically signed by: Bobby Fonseca M.D. 06/15/2017 3:37 PM Dictated Date/Time: 06/15/2017 3:36 PM
[2017-06-15 16:13] LABS: BASO % 0.2 %; BASO ABS # 0.02 K/uL (0-0.2); HEMATOCRIT 38.3 % (37-47); HEMOGLOBIN 12.9 g/dL (12.0-16.0); IG# 0.03 K/uL (0.00-0.02); LYMPH % 8.1 %; LYMPH ABS # 0.74 K/uL (1.2-3.4); MEAN CELL VOLUME 88.2 fL (80-100); MEAN CORPUSCULAR HEMOGLOBIN 29.7 pg (25-34); MEAN CORPUSCULAR HGB CONC 33.7 g/dl (32-36); MEAN PLATELET VOLUME 9.7 fL (7.4-10.4); MONO % 4.8 %; MONO ABS # 0.44 K/uL (0.11-0.59); NEUT % 86.6 %; NEUT ABS # 7.94 K/uL (1.4-6.5); PLATELET COUNT 230 K/uL (130-400); WHITE BLOOD COUNT 9.17 K/uL (4.8-10.8)
[2017-06-15 16:35] LABS: CALCIUM 9.5 mg/dl (8.5-10.1); CREATININE 0.6 mg/dl (0.60-1.20); POTASSIUM 3.8 mmol/L (3.5-5.1)
[2017-06-15] MEDS ORDERED: ONDANSETRON INJ 2 MG/ML 2 ML VIAL IV STA (16:40)
[2017-06-15] MEDS ORDERED: ONDANSETRON INJ 2 MG/ML 2 ML VIAL ONE (16:42)
[2017-06-15] MEDS ORDERED: SODIUM CHLORIDE 0.9% 500ML 500 ML IV STA (17:07)
--- NOTE | 2017-06-15 17:17 | EMERGENCY ROOM VISIT NOTE ---
History Report prepared by Jason: Andrea Moon Under the Supervision of: Dr. Adolfo Escamilla M.D. First contact with patient: 14:54 Chief Complaint: FLU LIKE SX Stated Complaint: COPD, INFLUENZA A - SENT FROM DR EUBANKS OFF History of Present Illness The patient is a 71 year old female who presents to the Emergency Room with complaints of persistent flu-like symptoms since June 13, 2017. She has been sick with a productive cough with yellow sputum and body aches since Wednesday. She currently rates her pain a 10/10 in severity. She notes that she is short of breath, which worsens when she lays flat. She reports dry heaves since last night. She was recently by her PCP today and was advised to go to the ED for evaluation. She was recently diagnosed with Influenza A. She has a history of COPD and atrial fibrillation. Source of History: patient Onset: June 13, 2017 Position: other (global ) Symptom Intensity: 10/10 Quality: other (flu-like symptoms) Timing: other (persistent) Associated Symptoms: + cough (productive with yellow sputum), + SOB ( worsens when laying flat) Note: She notes body aches and dry heaving. Review of Systems See HPI for pertinent positives & negatives. A total of 10 systems reviewed and were otherwise negative. Past Medical & Surgical Medical Problems: (1) Asthma (2) Atrial fibrillation, new onset (3) Autonomic neuropathy (4) Cholecystectomy (5) Chronic obstructive lung disease (6) Hernia repair (7) Hysterectomy (8) Pneumonia Family History FHx: heart disease Stroke Social History Smoking Status: Never Smoker Alcohol Use: none Drug Use: none Marital Status: single Housing Status: lives alone Occupation Status: disabled Current/Historical Medications Scheduled Amoxicillin & Pot Clavulanate (Augmentin 875-125 mg), 1 TAB PO BID Atorvastatin (Lipitor), 20 MG PO QPM Calcium Carbonate-Vitamin D (Calcium 600 + D), 1 TAB PO BID Cyanocobalamin (Vitamin B-12), 500 MCG PO DAILY Cyclosporine (Ophth) (Restasis), 1 DROP OPB Q12 Digoxin (Digoxin), 0.25 MG PO DAILY Flecainide Acetate (Flecainide Acetate), 100 MG PO Q12 Furosemide (Lasix), 40 MG PO DAILY Gabapentin (Neurontin), 300 MG PO DAILY Home O2 Therapy (Oxygen), 2 LITERS NA PRN Latanoprost (Xalatan 0.005% Oph Marisol), 1 DROPS OPB HS Levothyroxine Sodium (Levothyroxine Sodium), 75 MCG PO DAILY Metoprolol Succ (Toprol Xl) (Toprol-Xl ), 100 MG PO DAILY Pantoprazole (Protonix), 40 MG PO DAILY Prednisone (Prednisone), 1 DOSE PO UD Rivaroxaban (Xarelto), 20 MG PO DAILY Sennosides-Docusate Sodium (Senna Plus), 1 TAB PO DAILY Scheduled PRN Acetaminophen Tab (Tylenol), 650 MG PO Q4 PRN for Mild Pain Artificial Tear Solution (Artificial Tears), 2 DROPS OPB QID PRN for DRYNESS Docusate Sodium (Docusate Sodium), 100 MG PO DAILY PRN for Constipation Ipratropium [place] (Atrovent Hfa), 2 PUFFS INH QID PRN for SOB/Wheezing Ipratropium [place] (Ipratropium [place]), 1 DOSE INH QID PRN for SOB/Wheezing Allergies Coded Allergies: Pecan (Verified Allergy, Unknown, ., 06/15/17) Sulfa Drugs (Verified Adverse Reaction, Mild, YEAST INFECTION, 06/15/17) Physical Exam Vital Signs Date Time Temp Pulse Resp B/P (MAP) Pulse Ox O2 Delivery O2 Flow Rate FiO2 06/15/17 16:33 65 06/15/17 16:30 62 23 178/71 92 Room Air 06/15/17 15:24 91 Room Air 06/15/17 14:49 36.5 64 22 210/77 90 Room Air Physical Exam Constitutional: Vital signs reviewed. Eyes: Pupils are equal round reactive to light. Conjunctiva are noninjected. ENT: Pharynx is clear without erythema or exudate. Mucous membranes are moist. Neck supple without meningeal signs. Respiratory: Breath sounds are equal bilaterally. Diffuse expiratory wheezing bilaterally. Cardiovascular: Regular rate and rhythm. No rubs or gallops. GI: Soft, nondistended and nontender. Bowel sounds are present. Musculoskeletal: Mild lower extremity edema with venous stasis discoloration. Integumentary: No cyanosis. Neurological: The patient is awake and alert. No focal deficits. Psychiatric: Normal affect. Medical Decision & Procedures ER Provider Diagnostic Interpretation: Radiology results as stated below per my review and the radiologist's interpretation: CHEST ONE VIEW PORTABLE CLINICAL HISTORY: Symptoms of pneumonia COMPARISON STUDY: 10/21/2016 FINDINGS: The heart remains enlarged. There is mild central vascular prominence without evidence of overt failure. There are no pleural effusions. There is no focal pulmonary consolidation.[ IMPRESSION: Cardiomegaly. No evidence of focal pulmonary consolidation. Electronically signed by: Bobby Fonseca M.D. 06/15/2017 3:37 PM Dictated Date/Time: 06/15/2017 3:36 PM Laboratory Results 06/15/17 15:59 Red Blood Count 4.34, Mean Corpuscular Volume 88.2, Mean Corpuscular Hemoglobin 29.7, Mean Corpuscular Hemoglobin Concent 33.7, Mean Platelet Volume 9.7, Neutrophils (%) (Auto) 86.6, Lymphocytes (%) (Auto) 8.1, Monocytes (%) (Auto) 4.8, Eosinophils (%) (Auto) 0.0, Basophils (%) (Auto) 0.2, Neutrophils # (Auto) 7.94, Lymphocytes # (Auto) 0.74, Monocytes # (Auto) 0.44, Eosinophils # (Auto) 0.00, Basophils # (Auto) 0.02 06/15/17 15:59 Test 06/15/17 15:59 06/15/17 16:05 06/15/17 17:03 White Blood Count 9.17 K/uL (4.8-10.8) Red Blood Count 4.34 M/uL (4.2-5.4) Hemoglobin 12.9 g/dL (12.0-16.0) Hematocrit 38.3 % (37-47) Mean Corpuscular Volume 88.2 fL (80-100) Mean Corpuscular Hemoglobin 29.7 pg (25-34) Mean Corpuscular Hemoglobin Concent 33.7 g/dl (32-36) Platelet Count 230 K/uL (130-400) Mean Platelet Volume 9.7 fL (7.4-10.4) Neutrophils (%) (Auto) 86.6 % Lymphocytes (%) (Auto) 8.1 % Monocytes (%) (Auto) 4.8 % Eosinophils (%) (Auto) 0.0 % Basophils (%) (Auto) 0.2 % Neutrophils # (Auto) 7.94 K/uL (1.4-6.5) Lymphocytes # (Auto) 0.74 K/uL (1.2-3.4) Monocytes # (Auto) 0.44 K/uL (0.11-0.59) Eosinophils # (Auto) 0.00 K/uL (0-0.5) Basophils # (Auto) 0.02 K/uL (0-0.2) RDW Standard Deviation 42.0 fL (36.4-46.3) RDW Coefficient of Variation 13.0 % (11.5-14.5) Immature Granulocyte % (Auto) 0.3 % Immature Granulocyte # (Auto) 0.03 K/uL (0.00-0.02) Anion Gap 8.0 mmol/L (3-11) Est Creatinine Clear Calc Drug Dose 111.0 ml/min Estimated GFR () 107.8 Estimated GFR (Non- 93.0 BUN/Creatinine Ratio 14.1 (10-20) Calcium Level 9.5 mg/dl (8.5-10.1) Bedside Troponin I 0.050 ng/ml (0-0.045) Laboratory results as reviewed by me. Medications Administered Medications (Trade) Dose Ordered Sig/Darlene Route Start Time Stop Time Status Last Admin Dose Admin Methylprednisolone Sodium Succinate (Solu-Medrol IV) 125 mg NOW STAT IV 06/15/17 14:58 06/15/17 15:02 DC 06/15/17 16:43 125 MG Albuterol/ Ipratropium (Duoneb) 3 ml NOW STAT INH 06/15/17 14:58 06/15/17 15:02 DC 06/15/17 15:38 3 ML Oseltamivir Phosphate (Tamiflu Cap) 75 mg NOW STAT PO 06/15/17 14:58 06/15/17 15:02 DC 06/15/17 15:38 75 MG Albuterol/ Ipratropium (Duoneb) 3 ml NOW STAT INH 06/15/17 16:25 06/15/17 16:26 DC 06/15/17 16:43 3 ML Ondansetron HCl (Zofran Inj) 4 mg NOW STAT IV 06/15/17 16:40 06/15/17 16:41 DC 06/15/17 16:43 4 MG ECG Indication: SOB/dyspnea Rate (beats per minute): 63 Rhythm: normal sinus Findings: RBBB, no ectopy Change: no significant change (When compared to 10/23/2016) ED Course 1457: The patient was evaluated in room C5. A complete history and physical exam was performed. 1458: Ordered Tamiflu 75 mg PO, DuoNeb 3 ml INH, and Solu-Medrol 125 mg IV 1608: I reassessed the patient at this time. The patient is still wheezing. The nurse has been unable to establish an IV. I have switched the Solu-Medrol 125 mg dose from IV to IM. The patient will also receive another DuoNeb treatment. I discussed the results and treatment plan with the patient. I answered all pertaining questions that she had. She expressed understanding and verbalized agreement. The patient will be further evaluated. 1615: I spoke with Dr. Fair, hospitalist. We discussed the patient's case. The patient will be evaluated by the [facility] for further management. She was suppose to be a direct admit and is unsure why the patient ended up in the ED. The patient's oxygen saturation was 88% while at her PCP's office today. 1625: Ordered DuoNeb 3 ml INH 1639: The patient is now vomiting. I will administer more Zofran. 1640: Ordered Zofran 4 mg IV 1705: I spoke with Dr. Fair, [facility] hospitalist. I informed her of the patient' s laboratory results. 1707: Ordered Sodium Chloride 500 ml @ 999 mls/hr IV Medical Decision This is a 71-year-old female who presents with flulike symptoms and shortness of breath. Differential diagnosis includes influenza, COPD exacerbation, pneumonia, bronchitis, URI. I did perform a limited focused review of portions of the patient's old chart on the electronic medical record. The patient has had no recent pertinent visits to this hospital. I did evaluate the patient as noted above. The patient was diagnosed with influenza A prior to arrival. She was sent here for evaluation and likely admission. The patient has wheezing on examination. IV access was established. The patient was placed on a continuous monitor tech. I did treat her with a DuoNeb and Solu-Medrol IV. I did order and personally review the patient's 12-lead EKG and chest x-ray as described above. She has an old right bundle branch block. Her chest x-ray does not demonstrate any evidence of pneumonia. I did order and review the patient's blood work as noted in the electronic medical record. The patient has an elevated troponin and hyponatremia. She denies having any chest pain. Her EKG does not show any acute ischemic changes. She will need to have her cardiac enzymes repeated. I did reevaluate the patient. She still has wheezing on examination. She was given an additional DuoNeb. She denies any other complaints other than the wheezing. I did discuss case with the hospitalist and manager case. Medication Reconcilliation Current Medication List: was personally reviewed by me Blood Pressure Screening Patient's blood pressure: Elevated blood pressure Blood pressure disposition: Referred to PCP Consults Time Called: 1615 Consulting Physician: Dr. Fair, hospitalist I spoke with Dr. Fair [email or web address]. We discussed the patients case. The patient will be evaluated by the [facility] for further management. She was suppose to be a direct admit and is unsure why the patient ended up in the ED. The patient's oxygen saturation was 88% while at her PCP's office today. 1705: I spoke with Dr. Fair, [facility] hospitalist. I informed her of the patient' s laboratory results. Impression Primary Impression: Influenza A Additional Impressions: COPD exacerbation Hyponatremia Elevated troponin Scribe Attestation The scribe's documentation has been prepared under my direct and personally reviewed by me in its entirety. I confirm that the note above accurately reflects all work, treatment, procedures, and medical decision making performed by me. Departure Information Dispostion Being Evaluated By Hospitalist Referrals Harsha Venegas M.D. (PCP) Patient Instructions My [facility] Problem Qualifiers
[2017-06-15 17:31] LABS: INR 1.1 (0.9-1.1); PTT PATIENT 30.3 SECONDS (21.0-31.0)
[2017-06-15] MEDS ORDERED: MAGNESIUM HYDROXIDE SUSP 30 ML UDC PO PRN (19:15)
[2017-06-15] MEDS ORDERED: ONDANSETRON INJ 2 MG/ML 2 ML VIAL IV PRN (19:15)
[2017-06-15] MEDS ORDERED: POLYETHYLENE (MIRALAX) 17 GM PACK PO PRN (19:15)
[2017-06-15] MEDS ORDERED: LEVALBUTEROL 1.25MG/3ML NEB INH PRN (19:15)
[2017-06-15] MEDS ORDERED: ARTIFICIAL TEARS OP SOLN OPB PRN (19:30)
[2017-06-15] MEDS ORDERED: DOCUSATE SODIUM 100 MG CAP PO PRN (19:30)
[2017-06-15] MEDS: IPRATROPIUM BROMIDE NEB SOLN 0.02% 2.5 ML VIAL INH SCH (20:00)
[2017-06-15] MEDS ORDERED: RIVAROXABAN 20 MG TAB PO ONE (21:00)
[2017-06-15 21:08] VITALS: BP 181/69; PULSE 71; TEMP 37.1; O2SAT 95; Ht 157.5 cm; Wt 102.2 kg
[2017-06-15] MEDS: LATANOPROST 0.005% OP SOLN 2.5 ML BTL OPB SCH (21:22)
[2017-06-15 21:27] LABS: CALCIUM 9.1 mg/dl (8.5-10.1); CREATININE 0.83 mg/dl (0.60-1.20); POTASSIUM 4.2 mmol/L (3.5-5.1)
[2017-06-15] MEDS: ATORVASTATIN 20 MG TAB PO SCH (21:27)
[2017-06-15] MEDS: DIGOXIN 0.25 MG TAB PO SCH (21:27)
[2017-06-15] MEDS: OSELTAMIVIR PHOSPHATE 75 MG CAP PO SCH (21:27)
[2017-06-15] MEDS: FLECAINIDE ACETATE 100 MG TAB PO SCH (21:27)
[2017-06-15] MEDS ORDERED: NURSING VERBAL MED ORDER ONE (21:45)
[2017-06-15] MEDS: SODIUM CHLORIDE 0.9% 1000ML 1,000 ML IV SCH (22:01)
[2017-06-15] MEDS: GABAPENTIN 300 MG CAP PO SCH (22:02)
[2017-06-15] MEDS: CALCIUM 600MG + VIT D 400 IU TAB PO SCH (22:02)
[2017-06-15] MEDS: METHYLPREDNISOLONE IV 60 MG in SYRINGE 0 ML IV SCH (23:41)
[2017-06-15 23:57] VITALS: BP 129/67; PULSE 54; TEMP 37.4; O2SAT 93
[2017-06-16] VITALS (13 sets, daily range): BP systolic 133–178; BP diastolic 50–79; PULSE 52–86; TEMP 36.8–37; O2SAT 93–97
--- NOTE | 2017-06-16 01:03 | History and Physical ---
History & Physical Date & Time of Service: Jun 15, 2017 at 19:30 Chief Complaint: Copd, Influenza A Primary Care Physician: Harsha Venegas M.D. History of Present Illness Source: patient, clinic records, hospital records This patient is a 71-year-old female with a history of COPD, asthma, paroxysmal atrial fibrillation on long-term anticoagulation, hypothyroidism, hypertension, hyperlipidemia, peripheral neuropathy, LISSETH on nocturnal O2, and dry eye syndrome , who presents to the ER from her PCP office for persistent cough, wheeze, and acute hypoxemic respiratory failure. She had been treated as an outpatient with by mouth prednisone, Augmentin, and nebulizers 2 days without relief. Her PCP reported she was satting at 88% at rest and was in mild distress in the office. Her rapid flu swab came back positive for flu A in the office as well. In the emergency room, her troponin was mildly elevated at 0.05, and she was hyponatremic with sodium of 127. She was given IV fluids, Tamiflu, IV Solu- Medrol, as well as bronchodilator nebulized treatment. Her chest x-ray was negative for pneumonia. Past Medical/Surgical History PMH: COPD Asthma Paroxysmal atrial fibrillation on long-term anticoagulation Hypothyroidism Hypertension Hyperlipidemia Peripheral neuropathy LISSETH on nocturnal O2 Dry eye syndrome PSH: Cholecystectomy Hysterectomy Right TKA BSO Laparotomy for small bowel obstruction Family History FHx: heart disease Stroke Social History Smoking Status: Never Smoker Alcohol Use: none Drug Use: none Marital Status: single Housing status: lives alone Occupational Status: disabled Immunizations History of Influenza Vaccine: Yes Influenza Vaccine Date: Mar 02, 2013 History of Tetanus Vaccine?: UTD History of Pneumococcal: Yes History of Hepatitis B Vaccine: No Multi-Drug Resistant Organisms History of MDRO: No Allergies Coded Allergies: Sulfa Antibiotics (Verified Allergy, Mild, YEAST INFECTION, 06/15/17) Pecan (Verified Allergy, Unknown, ., 06/15/17) Home Medications Scheduled Amoxicillin & Pot Clavulanate (Augmentin 875-125 mg), 1 TAB PO BID Atorvastatin (Lipitor), 20 MG PO QPM Calcium Carbonate-Vitamin D (Calcium 600 + D), 1 TAB PO BID Cyanocobalamin (Vitamin B-12), 500 MCG PO DAILY Cyclosporine (Ophth) (Restasis), 1 DROP OPB Q12 Digoxin (Digoxin), 0.25 MG PO DAILY Flecainide Acetate (Flecainide Acetate), 100 MG PO Q12 Furosemide (Lasix), 40 MG PO DAILY Gabapentin (Neurontin), 300 MG PO DAILY Home O2 Therapy (Oxygen), 2 LITERS NA PRN Latanoprost (Xalatan 0.005% Oph Marisol), 1 DROPS OPB HS Levothyroxine Sodium (Levothyroxine Sodium), 75 MCG PO DAILY Metoprolol Succ (Toprol Xl) (Toprol-Xl ), 100 MG PO DAILY Pantoprazole (Protonix), 40 MG PO DAILY Prednisone (Prednisone), 1 DOSE PO UD Rivaroxaban (Xarelto), 20 MG PO DAILY Sennosides-Docusate Sodium (Senna Plus), 1 TAB PO DAILY Scheduled PRN Acetaminophen Tab (Tylenol), 650 MG PO Q4 PRN for Mild Pain Artificial Tear Solution (Artificial Tears), 2 DROPS OPB QID PRN for DRYNESS Docusate Sodium (Docusate Sodium), 100 MG PO DAILY PRN for Constipation Ipratropium [place] (Atrovent Hfa), 2 PUFFS INH QID PRN for SOB/Wheezing Ipratropium [place] (Ipratropium [place]), 1 DOSE INH QID PRN for SOB/Wheezing Review of Systems Constitutional: No fever, No chills Eyes: No problem reported ENT: No problem reported Respiratory: + cough, + shortness of breath, No sputum Cardiovascular: No chest pain, No palpitations Abdomen: No pain, No nausea, No vomiting Musculoskeletal: No problem reported Genitourinary - Female: No problem reported Neurologic: + problem reported (pain from peripheral neuropathy) Psychiatric: No problem reported Endocrine: No problem reported Hematologic / Lymphatic: No problem reported Integumentary: No problem reported Allergic / Immunologic: No problem reported Physical Exam Vital Signs Date Time Temp Pulse Resp B/P (MAP) Pulse Ox O2 Delivery O2 Flow Rate FiO2 06/15/17 18:54 93 Nasal Cannula 3.0 06/15/17 17:46 68 18 167/65 92 Room Air 06/15/17 16:33 65 06/15/17 16:30 62 23 178/71 92 Room Air 06/15/17 15:24 91 Room Air 06/15/17 14:49 36.5 64 22 210/77 90 Room Air General Appearance: WD/WN, + mild distress, + obese Head: normocephalic, atraumatic Eyes: normal inspection, PERRL, EOMI, sclerae normal ENT: hearing grossly normal, pharynx normal Neck: no adenopathy, trachea midline Respiratory/Chest: no accessory muscle use, + respiratory distress (mild tachypnea with minimal exertion), + wheezing (diffusely) Cardiovascular: regular rate, rhythm, no edema, no gallop, no murmur, normal peripheral pulses Abdomen/GI: normal bowel sounds, non tender, soft, no organomegaly Back: normal inspection Extremities/Musculoskelatal: normal inspection, no calf tenderness, no pedal edema Neurologic/Psych: alert, normal mood/affect, oriented x 3 Skin: normal color, warm/dry, no rash Lymphatic: no adenopathy Diagnostics Laboratory Results Results Past 24 Hours Test 06/15/17 15:59 06/15/17 16:05 06/15/17 17:03 Range/Units White Blood Count 9.17 4.8-10.8 K/uL Red Blood Count 4.34 4.2-5.4 M/uL Hemoglobin 12.9 12.0-16.0 g/dL Hematocrit 38.3 37-47 % Mean Corpuscular Volume 88.2 80-100 fL Mean Corpuscular Hemoglobin 29.7 25-34 pg Mean Corpuscular Hemoglobin Concent 33.7 32-36 g/dl Platelet Count 230 130-400 K/uL Mean Platelet Volume 9.7 7.4-10.4 fL Neutrophils (%) (Auto) 86.6 % Lymphocytes (%) (Auto) 8.1 % Monocytes (%) (Auto) 4.8 % Eosinophils (%) (Auto) 0.0 % Basophils (%) (Auto) 0.2 % Neutrophils # (Auto) 7.94 1.4-6.5 K/uL Lymphocytes # (Auto) 0.74 1.2-3.4 K/uL Monocytes # (Auto) 0.44 0.11-0.59 K/uL Eosinophils # (Auto) 0.00 0-0.5 K/uL Basophils # (Auto) 0.02 0-0.2 K/uL RDW Standard Deviation 42.0 36.4-46.3 fL RDW Coefficient of Variation 13.0 11.5-14.5 % Immature Granulocyte % (Auto) 0.3 % Immature Granulocyte # (Auto) 0.03 0.00-0.02 K/uL Sodium Level 127 136-145 mmol/L Potassium Level 3.8 3.5-5.1 mmol/L Chloride Level 90 98-107 mmol/L Carbon Dioxide Level 29 21-32 mmol/L Anion Gap 8.0 3-11 mmol/L Blood Urea Nitrogen 9 7-18 mg/dl Creatinine 0.60 0.60-1.20 mg/dl Est Creatinine Clear Calc Drug Dose 111.0 ml/min Estimated GFR () 107.8 Estimated GFR (Non- 93.0 BUN/Creatinine Ratio 14.1 10-20 Random Glucose 153 70-99 mg/dl Calcium Level 9.5 8.5-10.1 mg/dl Bedside Troponin I 0.050 0-0.045 ng/ml Prothrombin Time 11.5 9.0-12.0 SECONDS Prothromb Time International Ratio 1.1 0.9-1.1 Activated Partial Thromboplast Time 30.3 21.0-31.0 SECONDS Partial Thromboplastin Ratio 1.2 Diagnostic Radiology Chest x-ray image personally reviewed by me and shows cardiomegaly, mild pulmonary vascular congestion, no infiltrate EKG Normal sinus rhythm, rate 63, RBBB, no ischemic changes Impression Assessment and Plan This patient is a 71-year-old female with a history of COPD, asthma, paroxysmal atrial fibrillation on long-term anticoagulation, hypothyroidism, hypertension, hyperlipidemia, peripheral neuropathy, LISSETH on nocturnal O2, and dry eye syndrome , who presents to the ER from her PCP office for persistent cough, wheeze, and acute hypoxemic respiratory failure. She had been treated as an outpatient with by mouth prednisone, Augmentin, and nebulizers 2 days without relief. Her PCP reported she was satting at 88% at rest and was in mild distress in the office. Her rapid flu swab came back positive for flu A in the office as well. In the emergency room, her troponin was mildly elevated at 0.05, and she was hyponatremic with sodium of 127. She was given IV fluids, Tamiflu, IV Solu- Medrol. Her chest x-ray was negative for pneumonia. Acute hypoxemic respiratory failure/asthma and COPD exacerbation/influenza A respiratory illness-in mild respiratory distress with hypoxemia both here and in the outpatient setting, tachypnea, diffuse wheezing on exam. I cannot find any documented formal PFTs in her outpatient record to confirm her diagnoses. Chest x-ray without pneumonia -Admit to telemetry -We'll treat with Tamiflu for 5 day course for influenza A -Continue with IV Solu-Medrol and tapered down as tolerated -Continue with bronchodilators -Consult pulmonology given hospitalization for significant respiratory illness in the setting of chronic lung disease-will need formal PFTs as an outpatient -Continue supplemental O2 and wean off as tolerated to keep pulse ox greater than 92% Elevated troponin/PAF/HL/HTN-ECG without ischemic changes, no chest pain, likely demand ischemia from acute illness. Is in a normal sinus rhythm here. Blood pressure hypertensive on arrival. -Trend troponin -Check echocardiogram for wall motion abnormalities -Continue flecainide, digoxin, and Toprol-XL for rhythm and rate control -Continue Xarelto for anticoagulation and stroke prevention -Continue statin, Lasix -Monitor on telemetry -Consider cardiology consultation if troponin trends upward -Caution with bronchodilators/beta agonists Hyponatremia-sodium 127 on admission, could be from dehydration, improved to 130 after normal saline infusion -Continue normal saline at 75 ML's per hour -Follow PRP in the morning Neuropathy-stable -Continue gabapentin Hypothyroidism-TSH normal within the last year -Continue home dose of levothyroxine LISSETH-has not tolerated CPAP in the past, is on nocturnal O2 -Continue nocturnal O2 Prophylaxis-Xarelto Disposition-to home when medically stable Full Code Level of Care Telemetry Resuscitation Status FULL RESUSCITATION VTE Prophylaxis VTE Risk Assessment Done? Y/N: Yes Risk Level: Moderate Given or contraindicated: Other Anticoagulation (Xarelto) Additional Copies To Harsha Venegas M.D.; Na Gates PA
[2017-06-16] MEDS: LEVOTHYROXINE 75 MCG TAB PO SCH (05:46)
[2017-06-16] MEDS: ACETAMINOPHEN 325 MG TAB PO PRN ×2 (05:47→19:43)
[2017-06-16] MEDS: IPRATROPIUM BROMIDE NEB SOLN 0.02% 2.5 ML VIAL INH SCH ×6 (07:07→23:23)
[2017-06-16 07:53] LABS: HEMATOCRIT 37.9 % (37-47); HEMOGLOBIN 12.3 g/dL (12.0-16.0); IG# 0.02 K/uL (0.00-0.02); LYMPH % 11.1 %; LYMPH ABS # 0.72 K/uL (1.2-3.4); MEAN CELL VOLUME 90.2 fL (80-100); MEAN CORPUSCULAR HEMOGLOBIN 29.3 pg (25-34); MEAN CORPUSCULAR HGB CONC 32.5 g/dl (32-36); MEAN PLATELET VOLUME 9.5 fL (7.4-10.4); MONO % 5.4 %; MONO ABS # 0.35 K/uL (0.11-0.59); NEUT % 83.2 %; NEUT ABS # 5.38 K/uL (1.4-6.5); PLATELET COUNT 230 K/uL (130-400); RED CELL DISTRIBUTION WIDTH CV 13.5 % (11.5-14.5); RED CELL DISTRIBUTION WIDTH SD 44.3 fL (36.4-46.3); WHITE BLOOD COUNT 6.47 K/uL (4.8-10.8)
[2017-06-16] MEDS ORDERED: PERFLUTREN LIPID MICROSPHERE (DEFINITY) IV ONE (07:53)
[2017-06-16 08:22] LABS: CALCIUM 9.4 mg/dl (8.5-10.1); CREATININE 0.6 mg/dl (0.60-1.20); POTASSIUM 4.3 mmol/L (3.5-5.1)
--- NOTE | 2017-06-16 08:38 | Progress Note ---
Subjective Date of Service: Jun 16, 2017. Subjective this pt remains fairly tired and short of breath she has audible wheezing is with an non productive cough and has a sore throat Problem List Medical Problems: (1) Acute bronchitis Status: Acute (2) COPD exacerbation Status: Acute (3) COPD exacerbation Status: Acute (4) Elevated troponin Status: Acute (5) Hyponatremia Status: Acute (6) Hypoxia Status: Acute (7) Influenza A Status: Acute Review of Systems Constitutional: No fever, No chills, No weakness Respiratory: + cough, + sputum, + shortness of breath, + dyspnea on exertion, + dyspnea at rest Cardiac: No chest pain, No orthopnea, No edema Abdomen: No pain, No nausea, No vomiting Musculoskeletal: No joint pain, No muscle pain, No swelling Female : No dysuria, No urinary frequency, No hematuria, No incontinence Psychiatric: No depression symptoms, No anhedonism, No anxiety Objective Vital Signs Date Time Temp Pulse Resp B/P (MAP) Pulse Ox O2 Delivery O2 Flow Rate FiO2 06/16/17 08:06 36.8 80 18 133/79 (97) 97 Nasal Cannula 2.0 06/16/17 07:08 86 16 96 Nasal Cannula 2.0 06/16/17 04:00 Nasal Cannula 2.0 Humidified Oxygen 06/16/17 04:00 36.8 62 20 144/67 (92) 96 Nasal Cannula 2.0 06/16/17 01:24 61 16 95 Nasal Cannula 2.0 06/15/17 23:59 Nasal Cannula 2.0 Humidified Oxygen 06/15/17 23:57 37.4 54 20 129/67 (87) 93 Nasal Cannula 2.0 06/15/17 21:27 88 06/15/17 21:08 37.1 71 24 181/69 95 Nasal Cannula 3.0 06/15/17 20:17 65 16 165/98 94 06/15/17 19:44 63 19 97 06/15/17 19:14 64 20 94 06/15/17 18:54 93 Nasal Cannula 3.0 06/15/17 18:44 28 06/15/17 18:31 169/98 06/15/17 18:14 76 17 84 06/15/17 18:00 167/69 06/15/17 17:46 68 18 167/65 92 Room Air 06/15/17 17:44 68 21 90 06/15/17 17:30 167/65 06/15/17 17:26 167/101 06/15/17 17:14 67 23 96 06/15/17 16:44 73 22 92 06/15/17 16:33 65 18 16:30 178/71 06/15/17 16:30 62 23 178/71 92 Room Air 06/15/17 15:24 91 Room Air 06/15/17 14:49 36.5 64 22 210/77 90 Room Air Physical Exam General Appearance: WD/WN, + moderate distress Neck: supple, no JVD Respiratory/Chest: + decreased breath sounds, + accessory muscle use, + rales, + wheezing Cardiovascular: regular rate, rhythm, no murmur Abdomen: normal bowel sounds, non tender, soft Extremities: no pedal edema, no calf tenderness Neurologic/Psychiatric: alert, oriented x 3 Laboratory Results Last 24 Hours Test 06/15/17 15:59 06/15/17 16:05 06/15/17 17:03 06/15/17 20:52 White Blood Count 9.17 K/uL Red Blood Count 4.34 M/uL Hemoglobin 12.9 g/dL Hematocrit 38.3 % Mean Corpuscular Volume 88.2 fL Mean Corpuscular Hemoglobin 29.7 pg Mean Corpuscular Hemoglobin Concent 33.7 g/dl Platelet Count 230 K/uL Mean Platelet Volume 9.7 fL Neutrophils (%) (Auto) 86.6 % Lymphocytes (%) (Auto) 8.1 % Monocytes (%) (Auto) 4.8 % Eosinophils (%) (Auto) 0.0 % Basophils (%) (Auto) 0.2 % Neutrophils # (Auto) 7.94 K/uL Lymphocytes # (Auto) 0.74 K/uL Monocytes # (Auto) 0.44 K/uL Eosinophils # (Auto) 0.00 K/uL Basophils # (Auto) 0.02 K/uL RDW Standard Deviation 42.0 fL RDW Coefficient of Variation 13.0 % Immature Granulocyte % (Auto) 0.3 % Immature Granulocyte # (Auto) 0.03 K/uL Sodium Level 127 mmol/L 130 mmol/L Potassium Level 3.8 mmol/L 4.2 mmol/L Chloride Level 90 mmol/L 93 mmol/L Carbon Dioxide Level 29 mmol/L 28 mmol/L Anion Gap 8.0 mmol/L 10.0 mmol/L Blood Urea Nitrogen 9 mg/dl 9 mg/dl Creatinine 0.60 mg/dl 0.83 mg/dl Est Creatinine Clear Calc Drug Dose 111.0 ml/min 79.4 ml/min Estimated GFR () 107.8 83.4 Estimated GFR (Non- 93.0 71.9 BUN/Creatinine Ratio 14.1 10.3 Random Glucose 153 mg/dl 211 mg/dl Calcium Level 9.5 mg/dl 9.1 mg/dl Hepatitis C Antibody Screen NEG Bedside Troponin I 0.050 ng/ml Prothrombin Time 11.5 SECONDS Prothromb Time International Ratio 1.1 Activated Partial Thromboplast Time 30.3 SECONDS Partial Thromboplastin Ratio 1.2 Test 06/16/17 01:19 06/16/17 07:29 Troponin I 0.054 ng/ml White Blood Count 6.47 K/uL Red Blood Count 4.20 M/uL Hemoglobin 12.3 g/dL Hematocrit 37.9 % Mean Corpuscular Volume 90.2 fL Mean Corpuscular Hemoglobin 29.3 pg Mean Corpuscular Hemoglobin Concent 32.5 g/dl Platelet Count 230 K/uL Mean Platelet Volume 9.5 fL Neutrophils (%) (Auto) 83.2 % Lymphocytes (%) (Auto) 11.1 % Monocytes (%) (Auto) 5.4 % Eosinophils (%) (Auto) 0.0 % Basophils (%) (Auto) 0.0 % Neutrophils # (Auto) 5.38 K/uL Lymphocytes # (Auto) 0.72 K/uL Monocytes # (Auto) 0.35 K/uL Eosinophils # (Auto) 0.00 K/uL Basophils # (Auto) 0.00 K/uL RDW Standard Deviation 44.3 fL RDW Coefficient of Variation 13.5 % Immature Granulocyte % (Auto) 0.3 % Immature Granulocyte # (Auto) 0.02 K/uL Sodium Level 136 mmol/L Potassium Level 4.3 mmol/L Chloride Level 100 mmol/L Carbon Dioxide Level 29 mmol/L Anion Gap 8.0 mmol/L Blood Urea Nitrogen 11 mg/dl Creatinine 0.60 mg/dl Est Creatinine Clear Calc Drug Dose 109.8 ml/min Estimated GFR () 107.8 Estimated GFR (Non- 93.0 BUN/Creatinine Ratio 17.9 Random Glucose 156 mg/dl Calcium Level 9.4 mg/dl Assessment and Plan 71-F with acute hypoxic respiratory failure on chronic respiratory failure from COPD with acute influenza A she has a history of paroxysmal atrial fibrillation on long-term anticoagulation, hypothyroidism, hypertension, hyperlipidemia, peripheral neuropathy, LISSETH on nocturnal O2, and dry eye syndrome. She had failed outpt treatment with Augmentin and steroids. is also noted to have elevated troponin on admission. Acute hypoxemic respiratory failure/asthma and COPD exacerbation/influenza A respiratory illness Chest x-ray without pneumonia Tamiflu for 5 day course for influenza A IV Solu-Medrol and taper as clinically able -Consult pulmonology, supplemental O2 Elevated troponin/PAF, INitial ECG without ischemic changes, likely demand ischemia. Currently in normal sinus rhythm. Was hypertensive on arrival, pending echocardiogram remains on flecainide, digoxin, statin, Lasix and Toprol-XL plus Xarelto for anticoagulation Hyponatremia-sodium 127 on admission, normal saline at 75/hr Neuropathy gabapentin Hypothyroidism-TSH normal, on levothyroxine LISSETH-has not tolerated CPAP in the past, is on nocturnal O2 -Continue nocturnal O2 DVT Prophylaxis-Xarelto Full Code
[2017-06-16] MEDS ORDERED: GABAPENTIN 300 MG CAP PO SCH (09:00)
[2017-06-16] MEDS: SODIUM CHLORIDE 0.9% 1000ML 1,000 ML IV SCH ×2 (09:34→22:42)
[2017-06-16] MEDS: METHYLPREDNISOLONE IV 60 MG in SYRINGE 0 ML IV SCH ×3 (09:34→23:51)
[2017-06-16] MEDS: CALCIUM 600MG + VIT D 400 IU TAB PO SCH ×2 (09:36→21:32)
[2017-06-16] MEDS: RIVAROXABAN 20 MG TAB PO SCH (09:36)
[2017-06-16] MEDS: FUROSEMIDE 40 MG TAB PO SCH (09:36)
[2017-06-16] MEDS: CYANOCOBALAMIN 500 MCG TAB (VIT B-12) PO SCH (09:37)
[2017-06-16] MEDS: DOCUSATE SODIUM/SENNA 50/8.6MG TAB PO SCH (09:37)
[2017-06-16] MEDS: FLECAINIDE ACETATE 100 MG TAB PO SCH ×2 (09:37→21:32)
[2017-06-16] MEDS: OSELTAMIVIR PHOSPHATE 75 MG CAP PO SCH ×2 (09:37→21:32)
[2017-06-16] MEDS: PANTOprazole SOD 40 MG TAB PO SCH (09:38)
[2017-06-16] MEDS: METOPROLOL SUCC 50MG EXT REL TAB PO SCH (09:38)
--- NOTE | 2017-06-16 14:29 | DIAGNOSTIC IMAGING REPORT ---
ABDOMEN 2 VIEWS CLINICAL HISTORY: constipation pain COMPARISON STUDY: 07/28/2012 FINDINGS: The soft tissues, psoas shadows, renal outlines and intestinal gas pattern appear normal. There is no evidence for bowel obstruction. There is no evidence for free intraperitoneal air. No abnormal abdominal calcifications are seen. IMPRESSION: Normal study. The above report was generated using voice recognition software. It may contain grammatical, syntax or spelling errors. Electronically signed by: Jaylen Ronquillo M.D. 06/16/2017 2:28 PM Dictated Date/Time: 06/16/2017 2:28 PM
[2017-06-16] MEDS ORDERED: METHYLPREDNISOLONE IV 60 MG in SYRINGE 0 ML IV ONE (15:15)
[2017-06-16] MEDS: LEVALBUTEROL 1.25MG/3ML NEB INH SCH ×3 (15:21→23:23)
[2017-06-16] MEDS: BENZONATATE 100MG CAP PO SCH ×2 (15:32→21:33)
--- NOTE | 2017-06-16 16:15 | ECHOCARDIOGRAM REPORT ---
*NOTICE TO RECEIVING CONSTITUTION PARTY AGENCY This information is strictly Confidential and protected under [place] law. [place] law prohibits you from making any further disclosure of this information unless further disclosure is expressly permitted by the written consent of the person to whom it pertains or is authorized by law. A general authorization for the release of medical or other information is not sufficient for this purpose. Hospital accepts no responsibility if the information is made available to any other person, INCLUDING THE PATIENT. Interpretation Summary * Name: NIRMAL RODRIGUEZ Study Date: 06/16/2017 06:43 AM BP: 133/79 mmHg * Patient Location: C.2T\S\S233\S\1 HR: 80 * : 1945 (M/d/yy) Gender: Female Height: 62 in * Age: 71 yrs Ethnicity: [place] Weight: 267 lb * Ordering Physician: Jennyfer Ye * Referring Physician: JENNYFER YE MD * Performed By: Marycarmen Salgado RDCS * * Reason For Study: ELEVATED TROPONIN * BSA: 2.2 m2 * -- Conclusions -- * 1. Normal LV size. Mild concentric LVH. * 2. Normal LV systolic function. LVEF 55-60 %. No regional wall motion abnormalities. * 3. RV not well visualized. At least mildly dilated. Normal RV function. * 4. No significant valvular pathology. * 5. Dilated IVC. Estimated CVP 15 mm Hg. * 6. Compared with prior study on 07/19/2013: RV appears more dilated and estimated CVP now elevated. Procedure Details * A contrast injection of Definity was performed to improve assessment of LV function. * Contrast was injected into an intravenous site in the left arm. * One vial of Definity ultrasound contrast was diluted in normal saline to a total volume of 10 ml. A total of '2' ml of solution was administered during imaging. * Lot # [id number] of Definity utilized for procedure. * Expiration date 1 JUL 19. * The attending nurse who injected the contrast agent was DOUGLAS MUELLER RN. Left Ventricle * The left ventricle is grossly normal size. * There is mild concentric left ventricular hypertrophy. * Ejection Fraction = 55-60%. Right Ventricle * The right ventricle is not well visualized. * At least mildly dilated * The right ventricular systolic function is normal as assessed by tricuspid annular plane systolic excursion (TAPSE) (normal >1.5 cm). Atria * The left atrium is severely dilated. * The right atrium is severely dilated. * No ASD detected; PFO is not assessed. Mitral Valve * The mitral valve is grossly normal. * There is no mitral valve stenosis. * There is trace mitral regurgitation. Tricuspid Valve * The tricuspid valve is not well visualized, but is grossly normal. * There is no tricuspid stenosis. * Significant tricuspid regurgitation is absent. Aortic Valve * The aortic valve opens well. * No hemodynamically significant valvular aortic stenosis. * There is no significant aortic regurgitation. Pulmonic Valve * The pulmonary valve is inadequately visualized, but the Doppler data is adequate for interpretation. * Pulmonic stenosis is absent. * There is no significant pulmonary regurgitation. Great Vessels * The aortic root and proximal ascending aorta are normal sized. Pericardium/Pleural * There is no pericardial effusion. Great Vessels * Dilated inferior vena cava with reduced collapsability with sniff indicates an elevated right atrial pressure of 15 mmHg MMode 2D Measurements and Calculations IVSd 1.4 cm IVSs 2.3 cm LVIDd 5.1 cm LVIDs 3.5 cm LVPWd 1.7 cm LVPWs 1.6 cm IVS/LVPW 0.82 FS 31.4 % EDV(Teich) 123.6 ml ESV(Teich) 50.8 ml EF(Teich) 58.9 % EDV(cubed) 132.4 ml ESV(cubed) 42.8 ml EF(cubed) 67.7 % % IVS thick 65.3 % % LVPW thick -5.38 % LV mass(C)d 340.0 grams LV mass(C)dI 157.3 grams/m\S\2 LV mass(C)s 295.6 grams LV mass(C)sI 136.8 grams/m\S\2 SV(Teich) 72.8 ml SI(Teich) 33.7 ml/m\S\2 SV(cubed) 89.6 ml SI(cubed) 41.5 ml/m\S\2 Ao root diam 3.5 cm Ao root area 9.9 cm\S\2 LVAd ap4 36.3 cm\S\2 LVLd ap4 8.1 cm EDV(MOD-sp4) 130.0 ml EDV(sp4-el) 137.5 ml LVAs ap4 22.2 cm\S\2 LVLs ap4 7.0 cm ESV(MOD-sp4) 58.7 ml ESV(sp4-el) 60.1 ml EF(MOD-sp4) 54.9 % EF(sp4-el) 56.2 % LVAd ap2 29.7 cm\S\2 LVLd ap2 7.4 cm EDV(MOD-sp2) 98.2 ml EDV(sp2-el) 101.4 ml LVAs ap2 18.5 cm\S\2 LVLs ap2 6.3 cm ESV(MOD-sp2) 44.1 ml ESV(sp2-el) 46.3 ml EF(MOD-sp2) 55.0 % EF(sp2-el) 54.3 % LVLd %diff -9.76 % EDV(MOD-bp) 117.6 ml LVLs %diff -10.96 % ESV(MOD-bp) 53.8 ml EF(MOD-bp) 54.2 % SV(MOD-sp4) 71.3 ml SI(MOD-sp4) 33.0 ml/m\S\2 SV(MOD-sp2) 54.0 ml SI(MOD-sp2) 25.0 ml/m\S\2 SV(MOD-bp) 63.7 ml SI(MOD-bp) 29.5 ml/m\S\2 SV(sp4-el) 77.3 ml SI(sp4-el) 35.8 ml/m\S\2 SV(sp2-el) 55.1 ml SI(sp2-el) 25.5 ml/m\S\2 Doppler Measurements and Calculations MV E max rafi 103.3 cm/sec MV A max rafi 61.1 cm/sec MV E/A 1.7 MV dec time 0.26 sec Ao V2 max 147.7 cm/sec Ao max PG 8.7 mmHg Ao max PG (full) 2.4 mmHg LV V1 max PG 6.4 mmHg LV V1 max 126.1 cm/sec
[2017-06-16] MEDS ORDERED: RIVAROXABAN 20 MG TAB PO SCH (16:45)
--- NOTE | 2017-06-16 19:27 | CONSULTATION REPORT ---
DATE OF CONSULTATION: 06/16/2017 REASON FOR CONSULTATION: Acute on chronic respiratory failure and influenza A. HISTORY OF PRESENT ILLNESS: The patient is a 70-year-old female with past medical history of COPD, asthma, paroxysmal atrial fibrillation on long-term anticoagulation who presented to the ER 2 days ago. The patient states that she was in her normal state of health until approximately 5 days ago when she was out to dinner and started feeling poorly. She states that the symptoms started with some general achiness and fatigue. She also had a little bit of cough but was not any significant. She states that over the next 24 hours she did develop some chills which were not rigorous. She developed some increased wheezing, increased shortness of breath. She did have increased cough which was productive of a yellow mucus. She states that she is still run down and tired and ended up sleeping all out. She states that she did take some cahe-fkw-nbazhxy medications in the form of [id number] cough suppressants and Tylenol and did not feel any better and did not change any of her medications. She states that today she got up and felt worse. She did not check the temperature. She is not sure if she had any fever or not. She ended up presenting to her PCP office and started on Augmentin and prednisone with a 1 day follow up. After 1 day followup, she felt worse and she actually had some dry heaving and some nausea and because of that, her PCP office did a further testing including influenza titers and the patient came back positive for influenza A. The patient was transferred to [facility]. Since she has been in the hospital, patient has been getting Tamiflu. She has been getting aggressive pulmonary toilet in the form of ipratropium q.i.d. She has also been getting steroids alone with her routine medications. Unfortunately, she continues to have chest tightness. She feels her chest is tight. She gets out of breath with any type of exertion. She was not on oxygen prior to coming to the hospital however she is requiring oxygen at 2 liters per minute at this time. She does and did wear oxygen at nighttime with sleep. Currently, she denies any headache, no lightheadedness or dizziness. No vision problems. No eye pain, no mouth soreness, no sore throat. Shortness of breath as discussed. She is still short of breath. She is still having little bit of cough and congestion. She states that the cough did keep her up last night. She is not sleeping well. She has no pleuritic chest pain. She denies any cardiac symptoms. She has not had any palpitations although she does have history of AFib and is on chronic anticoagulation. She has no chest pain or anginal symptoms. She has no pain radiating to her neck, to her jaw or to her shoulders. She reports that she did continue to have nausea on admission, but that they are giving her medicine now for nausea. She denies any indigestion or heartburn. She states the last time her bowels moved was about 3 days ago. She states that she is passing gas without difficulty. She states that she is voiding without difficulty. She is not having any swelling in her extremities. She denies any numbness, tingling, weakness in her extremities. In reviewing her outpatient chart and the information we have, the patient has never done pulmonary function studies. Apparently, she was evaluated by Dr. Samayoa several years ago for sleep apnea. She did have a sleep study done in 2012, which did show some mild sleep apnea with nocturnal hypoxemia. The patient was unable to tolerate CPAP and was just on oxygen at night time. Overall, the patient reports that she is feeling a little bit better, although she has not had significant improvement to this point. The patient did have a chest x-ray at this point which was negative for pneumonia. She also had routine lab work done which showed a normal white count of 9000, slightly elevated troponin initially at 0.050, hyponatremia with initial sodium of 127. PAST MEDICAL HISTORY: Includes COPD, not sure how this diagnosis was made, asthma, paroxysmal atrial fibrillation on multiple anticoagulation, hypothyroidism, hypertension, hyperlipidemia, peripheral neuropathy, obstructive sleep apnea on nocturnal oxygen, dry eye syndrome. PAST SURGICAL HISTORY: Includes cholecystectomy, hysterectomy, total knee replacement on the right, bilateral salpingo-oophorectomy, laparotomy for small-bowel obstruction. FAMILY HISTORY: Includes heart disease and stroke. SOCIAL HISTORY: The patient is a lifelong nonsmoker, nondrinker. There is no significant travel history. HOME MEDICATIONS: Include Atrovent HFA 2 puffs 4 times daily as needed, digoxin 250 mcg 1 tablet daily, Xarelto 20 mg daily, flecainide 100 mg 1 tablet every 12 hours, metoprolol 100 mg once daily, ipratropium by nebulizer 4 times daily as needed, oxygen 2 liters via nasal cannula at nighttime, Senokot 1 tablet by mouth daily as needed for constipation, Colace 100 mg 1 tablet daily as directed, artificial tears 2 drops q.i.d. as needed, Restasis 0.05% one drop each eye every 12 hours, pantoprazole 40 mg daily, latanoprost 0.005% one drop both eyes at bedtime time as directed, oral vitamin B12 500 mcg daily, calcium 600 plus D 1 tablet twice daily, atorvastatin 20 mg 1 tablet daily, furosemide 40 mg 1 tablet daily, levothyroxine 75 mcg 1 tablet daily, Tylenol 325 mg 2 tablets q. 4 hours as needed, gabapentin 300 mg 1 capsule daily. ALLERGIES: SULFA AND PECANS. REVIEW OF SYSTEMS: As above, otherwise unremarkable. PHYSICAL EXAMINATION: GENERAL: The patient is a 71-year-old female lying in bed. She is alert and oriented x3. She is interactive and cooperative. She does have some mild dyspnea with exertion. She is able to complete sentences at this point. Alert and oriented x3. Mood is good. Affect is good. VITAL SIGNS: Temp 36.9, pulse 86, respirations 22, blood pressure is 148/69, pulse ox 94% on 2 liters. HEENT: Normocephalic, atraumatic. Pupils equal, round and reactive to light and accommodation. Extraocular movements are intact. Mimbres slightly dry gingival and buccal mucosa. No erythema or edema. She does have a extended soft palate. NECK: Short, thick, supple. No mass. No adenopathy. No bruit. CHEST: The patient has diffuse wheezing throughout, difficult to ascertain if there is any way of, although did not appreciate any. CARDIOVASCULAR: Regular rate and rhythm. I did not appreciate any murmurs, gallops or rubs, although with the degree of wheezing it would have been difficult to pickup from mild wheeze. ABDOMEN: Bowel sounds throughout. Abdomen is slightly distended, slightly tympanitic to percussion in the upper and mid epigastric area. No guarding, rigidity or organomegaly noted. No significant tenderness to palpation. EXTREMITIES: The patient has an old healed stasis wound on the left lower extremity, although there is an area where patient did have a contusion recently and this is scabbed over. She does have chronic venous stasis changes bilaterally. No tenderness. No cyanosis or clubbing. NEUROLOGIC: Cranial nerves II through XII are intact. No focal deficit. LABORATORY WORK: As noted above. Chest x-ray has been as above. IMPRESSION: 1. A 71-year-old female with apparently a longstanding history of chronic obstructive pulmonary disease and asthma, although we could not find a pulmonary function test in her outpatient charts, who presents with respiratory symptoms including hypoxia, persistent cough, wheezing and a positive influenza A. At this point, the patient has been already started on Tamiflu. She has been given IV fluids. She has been on the nebulizer as well. Unfortunately, the patient continues with significant wheezing at this time. For now, I think that the best plan of action is to give the patient 1 time 60 mg dose of Solu-Medrol IV in addition to the 60 mg she is receiving q. 8 hours. Also want to revise her pulmonary toilet and do combination of Xopenex and ipratropium q. 4 hours while awake. Also put an order at the request of Dr. Saavedra for 1 hour long neb to be done as needed. Right now she does still have a fairly high oxygen demand for her. We will have her continue on O2 and she very well may need to go home with oxygen for a period of time. 2. Constipation and bloating in the abdomen. We will get an abdominal x-ray due to her history of a small-bowel obstruction and also in light of that if she is constipated, it is going to put increased pressure on her diaphragm which will impede her breathing a little bad and she is agreeable to this as well. 3. Sleep apnea, we did discuss her sleep apnea. The patient is on oxygen for this. It sounds like she had a full facemask in the past and was unable to tolerate it. This is something we can look at in the presumed future. 4. Elevated troponin. This has trended down. I suspect that it was secondary to increased respiratory demand. Follow up troponins have been unremarkable. At this point, we will continue to evaluate the patient and her response to the changes we made in her medications today. We will reevaluate her tomorrow and consider repeat chest x-ray. Thank you for the consultation on this patient.
[2017-06-16] MEDS: LATANOPROST 0.005% OP SOLN 2.5 ML BTL OPB SCH (21:00)
[2017-06-16] MEDS: GABAPENTIN 300 MG CAP PO SCH (21:32)
[2017-06-16] MEDS: ATORVASTATIN 20 MG TAB PO SCH (21:33)
[2017-06-16] MEDS: DIGOXIN 0.25 MG TAB PO SCH (21:34)
[2017-06-17] VITALS (13 sets, daily range): BP systolic 123–173; BP diastolic 62–79; PULSE 50–93; TEMP 36.4–37; O2SAT 95–98
[2017-06-17] MEDS: IPRATROPIUM BROMIDE NEB SOLN 0.02% 2.5 ML VIAL INH SCH ×5 (03:16→19:25)
[2017-06-17] MEDS: LEVALBUTEROL 1.25MG/3ML NEB INH SCH ×5 (03:17→19:25)
[2017-06-17] MEDS: LEVOTHYROXINE 75 MCG TAB PO SCH (05:18)
[2017-06-17 06:32] LABS: HEMATOCRIT 38.7 % (37-47); HEMOGLOBIN 12.5 g/dL (12.0-16.0); IG# 0.03 K/uL (0.00-0.02); LYMPH % 8.4 %; LYMPH ABS # 0.83 K/uL (1.2-3.4); MEAN CELL VOLUME 92.1 fL (80-100); MEAN CORPUSCULAR HEMOGLOBIN 29.8 pg (25-34); MEAN CORPUSCULAR HGB CONC 32.3 g/dl (32-36); MEAN PLATELET VOLUME 9.9 fL (7.4-10.4); MONO ABS # 0.39 K/uL (0.11-0.59); NEUT % 87.3 %; NEUT ABS # 8.61 K/uL (1.4-6.5); PLATELET COUNT 214 K/uL (130-400); RED CELL DISTRIBUTION WIDTH CV 13.8 % (11.5-14.5); RED CELL DISTRIBUTION WIDTH SD 46.3 fL (36.4-46.3); WHITE BLOOD COUNT 9.86 K/uL (4.8-10.8)
[2017-06-17 07:07] LABS: CALCIUM 8.8 mg/dl (8.5-10.1); CREATININE 0.76 mg/dl (0.60-1.20); POTASSIUM 4.1 mmol/L (3.5-5.1)
[2017-06-17] MEDS: METOPROLOL SUCC 50MG EXT REL TAB PO SCH (08:04)
[2017-06-17] MEDS: FUROSEMIDE 40 MG TAB PO SCH (08:04)
[2017-06-17] MEDS: OSELTAMIVIR PHOSPHATE 75 MG CAP PO SCH ×2 (08:04→20:46)
[2017-06-17] MEDS: RIVAROXABAN 20 MG TAB PO SCH (08:04)
[2017-06-17] MEDS: CALCIUM 600MG + VIT D 400 IU TAB PO SCH ×2 (08:05→20:44)
[2017-06-17] MEDS: METHYLPREDNISOLONE IV 60 MG in SYRINGE 0 ML IV SCH ×2 (08:06→16:27)
[2017-06-17] MEDS: CYANOCOBALAMIN 500 MCG TAB (VIT B-12) PO SCH (08:06)
[2017-06-17] MEDS: BENZONATATE 100MG CAP PO SCH ×3 (08:06→20:46)
[2017-06-17] MEDS: DOCUSATE SODIUM/SENNA 50/8.6MG TAB PO SCH (08:06)
[2017-06-17] MEDS: PANTOprazole SOD 40 MG TAB PO SCH (08:07)
[2017-06-17] MEDS: FLECAINIDE ACETATE 100 MG TAB PO SCH ×2 (08:07→20:46)
--- NOTE | 2017-06-17 15:32 | PULMONARY PROGRESS NOTE ---
DATE: 06/17/2017 SUBJECTIVE: The patient was resting comfortably and I awakened her. She states her breathing has definitely improved on the more frequent aerosolized bronchodilator treatment she is receiving. She is less bronchospastic and complaining of less chest tightness. She has been on oxygen at 2 liters by nasal cannula nocturnally, and has not been on CPAP therapy. The apnea and hypopnea index or AHI in 2013 was mild and as was the nocturnal desaturation. She does give a history over the past year of some dysphagia with "food sticking when I swallow." She does think she has reflux symptoms and that needs to be treated more aggressively. She did have an emesis today earlier. PHYSICAL EXAMINATION: CURRENT VITAL SIGNS: Temperature 37, pulse 84 and regular, respiratory rate 18, blood pressure 162/79, O2 sat 97% on 2 liters. SKIN: Warm and dry. HEENT: Atraumatic, normocephalic, PERRLA, EOMI. Conjunctivae pink. Sclerae nonicteric. Fundi deferred. LUNGS: Scattered wheeze, otherwise distant P&A with better air entry than was suggested yesterday on examination. CARDIAC: Regular rhythm. I do not appreciate an S3. ABDOMEN: Soft, scaphoid. No evidence of hepatosplenomegaly. EXTREMITIES: No pedal edema, clubbing or cyanosis. NEUROLOGIC: Intact. Echocardiogram showed normal LVEF. RV appears mildly dilated. I cannot assess for pulmonary arterial hypertension. OVERALL ASSESSMENT: A 71-year-old with chronic obstructive pulmonary disease/asthma with exacerbation secondary to influenza A, and with a history of mild obstructive sleep apnea may also have reflux with symptoms of dysphagia. No sign of obvious aspiration, but certainly would consider several things. I would repeat a sleep study at a later date to see if there has been worsening of her sleep apnea where she would require CPAP. I would slowly titrate and decrease her steroid dosage and place patient on aggressive reflux prophylaxis. I see she is on Protonix 40 mg daily. The patient may very well require upper endoscopy at some point and gastrointestinal evaluation given her symptoms of dysphagia. We will follow along with you. Thank you very much for this consultation.
--- NOTE | 2017-06-17 15:42 | Progress Note ---
Subjective Date of Service: Jun 17, 2017. Subjective this pt has slight improvement in breathing , feels less breathless has had improved appetite and did have good bowel function Problem List Medical Problems: (1) Acute bronchitis Status: Acute (2) COPD exacerbation Status: Acute (3) COPD exacerbation Status: Acute (4) Elevated troponin Status: Acute (5) Hyponatremia Status: Acute (6) Hypoxia Status: Acute (7) Influenza A Status: Acute Review of Systems Constitutional: + weakness, + fatigue, No fever, No chills Respiratory: + cough, + sputum, + wheezing, + shortness of breath, + dyspnea on exertion Cardiac: No chest pain, No edema Abdomen: No pain, No nausea, No vomiting Musculoskeletal: No joint pain, No muscle pain Female : No dysuria, No urinary frequency, No hematuria Neurologic: No memory loss, No paralysis Psychiatric: No depression symptoms, No anhedonism Objective Vital Signs Date Time Temp Pulse Resp B/P (MAP) Pulse Ox O2 Delivery O2 Flow Rate FiO2 06/17/17 15:17 36.7 93 18 173/74 (107) 95 Nasal Cannula 2.0 06/17/17 14:31 51 16 97 Nasal Cannula 2.0 06/17/17 12:17 Nasal Cannula 2.0 Humidified Oxygen 06/17/17 11:53 37.0 84 18 162/79 (106) 97 06/17/17 11:19 66 16 96 Nasal Cannula 2.0 06/17/17 08:27 36.5 59 16 123/65 (84) 95 Nasal Cannula 2.0 06/17/17 08:00 Nasal Cannula 2.0 Humidified Oxygen 06/17/17 07:08 53 16 96 Nasal Cannula 2.0 06/17/17 04:00 Nasal Cannula 2.0 06/17/17 03:44 36.4 51 16 145/72 (96) 96 Nasal Cannula 2.0 06/17/17 03:18 53 14 98 Nasal Cannula 2.0 06/16/17 23:59 Nasal Cannula 2.0 06/16/17 23:23 52 16 93 Nasal Cannula 2.0 06/16/17 23:14 37.0 53 22 177/72 (107) 93 Nasal Cannula 2.0 06/16/17 21:34 68 06/16/17 20:06 37.0 58 19 145/66 (92) 94 Nasal Cannula 2.0 06/16/17 20:00 Nasal Cannula 2.0 Humidified Oxygen 06/16/17 18:58 58 16 96 Nasal Cannula 2.0 06/16/17 16:09 36.9 56 22 178/50 (92) 93 Nasal Cannula 2.0 06/16/17 16:00 93 Nasal Cannula 2.0 Humidified Oxygen Physical Exam General Appearance: WD/WN, + moderate distress Neck: supple, no JVD Respiratory/Chest: + decreased breath sounds, + accessory muscle use, + rales, + wheezing Cardiovascular: regular rate, rhythm, no murmur Abdomen: normal bowel sounds, non tender, soft Extremities: no pedal edema, no calf tenderness Neurologic/Psychiatric: alert, oriented x 3 Laboratory Results Last 24 Hours Test 06/17/17 06:05 White Blood Count 9.86 K/uL Red Blood Count 4.20 M/uL Hemoglobin 12.5 g/dL Hematocrit 38.7 % Mean Corpuscular Volume 92.1 fL Mean Corpuscular Hemoglobin 29.8 pg Mean Corpuscular Hemoglobin Concent 32.3 g/dl Platelet Count 214 K/uL Mean Platelet Volume 9.9 fL Neutrophils (%) (Auto) 87.3 % Lymphocytes (%) (Auto) 8.4 % Monocytes (%) (Auto) 4.0 % Eosinophils (%) (Auto) 0.0 % Basophils (%) (Auto) 0.0 % Neutrophils # (Auto) 8.61 K/uL Lymphocytes # (Auto) 0.83 K/uL Monocytes # (Auto) 0.39 K/uL Eosinophils # (Auto) 0.00 K/uL Basophils # (Auto) 0.00 K/uL RDW Standard Deviation 46.3 fL RDW Coefficient of Variation 13.8 % Immature Granulocyte % (Auto) 0.3 % Immature Granulocyte # (Auto) 0.03 K/uL Sodium Level 136 mmol/L Potassium Level 4.1 mmol/L Chloride Level 100 mmol/L Carbon Dioxide Level 32 mmol/L Anion Gap 4.0 mmol/L Blood Urea Nitrogen 17 mg/dl Creatinine 0.76 mg/dl Est Creatinine Clear Calc Drug Dose 86.3 ml/min Estimated GFR () 92.8 Estimated GFR (Non- 80.0 BUN/Creatinine Ratio 22.7 Random Glucose 144 mg/dl Calcium Level 8.8 mg/dl Magnesium Level 2.4 mg/dl Chemistry Specimen Hemolysis Assessment and Plan 71-F with acute hypoxic respiratory failure on chronic respiratory failure from COPD with acute influenza A she has a history of paroxysmal atrial fibrillation on long-term anticoagulation, hypothyroidism, hypertension, hyperlipidemia, peripheral neuropathy, LISSETH on nocturnal O2, and dry eye syndrome. She had failed outpt treatment with Augmentin and steroids. is also noted to have elevated troponin on admission. Acute hypoxemic respiratory failure/asthma and COPD exacerbation/influenza A respiratory illness, she has modest improvement, pulmonary med had increased steroids 06/16 Chest x-ray without pneumonia Tamiflu for 5 day course for influenza A -Consult pulmonology, supplemental O2 Elevated troponin/PAF, INitial ECG without ischemic changes, likely demand ischemia. Currently in normal sinus rhythm and troponin normalized was only 0.05 Was hypertensive on arrival, No RWMA on echocardiogram and preserved EF remains on flecainide, digoxin, statin, Lasix and Toprol-XL plus Xarelto for anticoagulation Hyponatremia-on admission resolved Neuropathy gabapentin provides good relief Hypothyroidism on levothyroxine LISSETH-has not tolerated CPAP in the past, is on nocturnal O2 -Continue nocturnal O2, will have post discharge sleep apnea testing DVT Prophylaxis-Xarelto Full Code
[2017-06-17] MEDS: LATANOPROST 0.005% OP SOLN 2.5 ML BTL OPB SCH (20:44)
[2017-06-17] MEDS: ATORVASTATIN 20 MG TAB PO SCH (20:45)
[2017-06-17] MEDS: DIGOXIN 0.25 MG TAB PO SCH (20:45)
[2017-06-17] MEDS: GABAPENTIN 300 MG CAP PO SCH (20:47)
[2017-06-18] VITALS (14 sets, daily range): BP systolic 136–174; BP diastolic 65–77; PULSE 53–79; TEMP 36.5–36.8; O2SAT 90–97
[2017-06-18] MEDS: LEVALBUTEROL 1.25MG/3ML NEB INH SCH ×7 (00:10→23:09)
[2017-06-18] MEDS: IPRATROPIUM BROMIDE NEB SOLN 0.02% 2.5 ML VIAL INH SCH ×7 (00:10→23:09)
[2017-06-18] MEDS: METHYLPREDNISOLONE IV 60 MG in SYRINGE 0 ML IV SCH ×4 (00:15→23:59)
[2017-06-18] MEDS: LEVOTHYROXINE 75 MCG TAB PO SCH (06:33)
[2017-06-18] MEDS: DOCUSATE SODIUM/SENNA 50/8.6MG TAB PO SCH (07:47)
[2017-06-18] MEDS: METOPROLOL SUCC 50MG EXT REL TAB PO SCH (07:47)
[2017-06-18] MEDS: CALCIUM 600MG + VIT D 400 IU TAB PO SCH ×2 (07:48→20:43)
[2017-06-18] MEDS: FLECAINIDE ACETATE 100 MG TAB PO SCH ×2 (07:48→20:46)
[2017-06-18] MEDS: CYANOCOBALAMIN 500 MCG TAB (VIT B-12) PO SCH (07:48)
[2017-06-18] MEDS: BENZONATATE 100MG CAP PO SCH ×3 (07:49→20:46)
[2017-06-18] MEDS: RIVAROXABAN 20 MG TAB PO SCH (07:49)
[2017-06-18] MEDS: OSELTAMIVIR PHOSPHATE 75 MG CAP PO SCH ×2 (07:50→20:46)
[2017-06-18] MEDS: PANTOprazole SOD 40 MG TAB PO SCH (07:51)
[2017-06-18] MEDS: FUROSEMIDE 40 MG TAB PO SCH (07:52)
[2017-06-18 08:04] LABS: BASO % 0.1 %; BASO ABS # 0.01 K/uL (0-0.2); HEMATOCRIT 40.2 % (37-47); HEMOGLOBIN 12.9 g/dL (12.0-16.0); LYMPH % 11.9 %; LYMPH ABS # 1.03 K/uL (1.2-3.4); MEAN CELL VOLUME 92.2 fL (80-100); MEAN CORPUSCULAR HEMOGLOBIN 29.6 pg (25-34); MEAN CORPUSCULAR HGB CONC 32.1 g/dl (32-36); MEAN PLATELET VOLUME 9.8 fL (7.4-10.4); MONO % 3.1 %; MONO ABS # 0.27 K/uL (0.11-0.59); NEUT % 83.7 %; NEUT ABS # 7.26 K/uL (1.4-6.5); PLATELET COUNT 228 K/uL (130-400); RED CELL DISTRIBUTION WIDTH CV 13.8 % (11.5-14.5); RED CELL DISTRIBUTION WIDTH SD 46.5 fL (36.4-46.3); WHITE BLOOD COUNT 8.67 K/uL (4.8-10.8)
[2017-06-18 08:35] LABS: CREATININE 0.83 mg/dl (0.60-1.20); POTASSIUM 4.1 mmol/L (3.5-5.1)
--- NOTE | 2017-06-18 12:36 | PROGRESS NOTE ---
DATE: 06/18/2017 PROBLEM LIST: Includes: 1. Chronic obstructive pulmonary disease with exacerbation. 2. Influenza type A. 3. Mild sleep apnea. 4. Questionable dysphagia. SUBJECTIVE: The patient reports that overall she has been doing well; however, when I entered, they had just been in cleaning and she felt that the cleaning agents had treated her breathing a little bit. She was having coughing paroxysms while I was there, this did eventually anabela. The patient reports that she overall is improved from 2 days ago when I last saw her. She did see Dr. Saavedra yesterday. She states that her cough has improved, her wheezing has improved and she is less short of breath. She does not have the oxygen on today and feels that she is doing well without it. She has no chest discomfort or chest pain. She has no chest heaviness. She does report that she did have an episode of choking yesterday on a piece of fish. She states that she had beef the night before and had chicken and did not have any difficulty with these. She is not sure what caused her to have difficulty with the fish. Otherwise, she has not had any problems. She states that her bowels finally did move as well. She is voiding well. She has no swelling in her extremities. OBJECTIVE: GENERAL: The patient is a 71-year-old female, lying in bed in no acute distress. Again, she did have some coughing paroxysms initially, but that resolved. She is alert and oriented x3. Mood is good. Affect is good. She did not appear to be in any respiratory distress. VITAL SIGNS: Temp 36.8, pulse 79, respirations 18, blood pressure 165/70, and pulse ox is 96% on room air. HEENT: Normocephalic and atraumatic. Pupils equal, round and reactive to light and accommodation. Extraocular movements are intact. Moist gingival and buccal mucosa. NECK: Supple. No mass. No adenopathy or bruit. CHEST: She does have some faint expiratory wheeze. No rales or rhonchi noted. Better air movement than previous. CARDIOVASCULAR: Regular rate and rhythm. There are no murmurs, gallops or rubs. ABDOMEN: Obese, soft, and nontender. No guarding, rigidity or organomegaly. EXTREMITIES: The patient has trace to +1 edema bilaterally. No erythema. No cyanosis or clubbing. LABORATORY DATA: Show a white count of 8000, H&H 12.9 and 40.2, and platelet count of 228,000. No new imaging. IMPRESSION: This is a 71-year-old female with fairly moderate severe chronic obstructive pulmonary disease, who was admitted with exacerbation and was found to have influenza A. At this point, the patient is being treated appropriately. Her breathing has improved with more regular nebulizer treatments. At this point, we will continue this. She did have coughing paroxysms today, but resolved before I left. At this point, I would recommend to continue the routine nebulizer. If she does well through the rest of the day, tomorrow can decrease her Solu-Medrol to 60 q. 12 hours. If she continues to do well, then transition to prednisone and then finish out the course of Tamiflu. She will need outpatient followup. Would recommend followup in the office in 1-2 weeks with focus on chronic obstructive pulmonary disease, but also evaluating her sleep apnea and possible dysphagia.
[2017-06-18] MEDS: GABAPENTIN 300 MG CAP PO SCH (20:42)
[2017-06-18] MEDS: LATANOPROST 0.005% OP SOLN 2.5 ML BTL OPB SCH (20:42)
[2017-06-18] MEDS: ATORVASTATIN 20 MG TAB PO SCH (20:43)
[2017-06-18] MEDS: GUAIFENESIN 600 MG TABCR PO SCH (20:45)
[2017-06-18] MEDS: DIGOXIN 0.25 MG TAB PO SCH (20:45)
[2017-06-19] VITALS (9 sets, daily range): BP systolic 150–173; BP diastolic 70–90; PULSE 46–59; TEMP 36.8–36.9; O2SAT 91–97
[2017-06-19] MEDS: LEVALBUTEROL 1.25MG/3ML NEB INH SCH ×6 (04:02→23:01)
[2017-06-19] MEDS: IPRATROPIUM BROMIDE NEB SOLN 0.02% 2.5 ML VIAL INH SCH ×6 (04:02→23:01)
--- NOTE | 2017-06-19 05:33 | Progress Note ---
Subjective Date of Service: late entry for visit Jun 18, 2017. Subjective Pt evaluation today including: conversation w/ patient, physical exam, chart review, lab review, review of inpatient medication list Pain: denies chest pain or abd pain PO Intake: eating slowly improving Voiding: no voiding problems tele stable overnight she overall feels "better" but not 100% breathing is improved, less cough/wheezing mentions dysphagia for solids for several months; typically dry, firm, hard foods never has had EGD Problem List Medical Problems: (1) Acute bronchitis Status: Acute (2) COPD exacerbation Status: Acute (3) COPD exacerbation Status: Acute (4) Elevated troponin Status: Acute (5) Hyponatremia Status: Acute (6) Hypoxia Status: Acute (7) Influenza A Status: Acute Review of Systems Respiratory: + sputum, + dyspnea on exertion Cardiac: No chest pain, No orthopnea Abdomen: No pain Objective Vital Signs Date Time Temp Pulse Resp B/P (MAP) Pulse Ox O2 Delivery O2 Flow Rate FiO2 06/19/17 03:50 59 16 97 Nasal Cannula 2.0 06/19/17 00:00 Room Air 06/18/17 23:23 36.5 58 20 174/77 (109) 92 Room Air 06/18/17 23:10 58 16 94 Room Air 06/18/17 21:16 58 16 93 Room Air 06/18/17 20:45 63 06/18/17 20:44 63 06/18/17 16:25 36.5 59 18 173/71 (105) 93 Room Air 06/18/17 15:26 36.8 56 20 154/72 (99) 93 Room Air 06/18/17 15:05 58 16 91 Room Air 06/18/17 14:59 36.7 53 20 92 06/18/17 12:00 Room Air 06/18/17 11:18 36.7 53 20 136/72 (93) 92 Nasal Cannula 2.0 06/18/17 10:54 62 16 90 Room Air 06/18/17 08:00 Room Air 06/18/17 07:41 36.8 79 18 165/70 (101) 96 06/18/17 07:13 76 16 97 Nasal Cannula 2.0 Physical Exam General Appearance: no apparent distress, + obese ENT: pharynx normal Neck: no JVD Respiratory/Chest: no respiratory distress, no accessory muscle use, + wheezing (extensive, b/l) Cardiovascular: regular rate, rhythm, no gallop, no murmur Abdomen: normal bowel sounds, non tender, soft, no organomegaly Extremities: no pedal edema Neurologic/Psychiatric: alert, oriented x 3 Laboratory Results Last 24 Hours Test 06/18/17 07:34 White Blood Count 8.67 K/uL Red Blood Count 4.36 M/uL Hemoglobin 12.9 g/dL Hematocrit 40.2 % Mean Corpuscular Volume 92.2 fL Mean Corpuscular Hemoglobin 29.6 pg Mean Corpuscular Hemoglobin Concent 32.1 g/dl Platelet Count 228 K/uL Mean Platelet Volume 9.8 fL Neutrophils (%) (Auto) 83.7 % Lymphocytes (%) (Auto) 11.9 % Monocytes (%) (Auto) 3.1 % Eosinophils (%) (Auto) 0.0 % Basophils (%) (Auto) 0.1 % Neutrophils # (Auto) 7.26 K/uL Lymphocytes # (Auto) 1.03 K/uL Monocytes # (Auto) 0.27 K/uL Eosinophils # (Auto) 0.00 K/uL Basophils # (Auto) 0.01 K/uL RDW Standard Deviation 46.5 fL RDW Coefficient of Variation 13.8 % Immature Granulocyte % (Auto) 1.2 % Immature Granulocyte # (Auto) 0.10 K/uL Sodium Level 136 mmol/L Potassium Level 4.1 mmol/L Chloride Level 96 mmol/L Carbon Dioxide Level 31 mmol/L Anion Gap 9.0 mmol/L Blood Urea Nitrogen 15 mg/dl Creatinine 0.83 mg/dl Est Creatinine Clear Calc Drug Dose 78.8 ml/min Estimated GFR () 83.4 Estimated GFR (Non- 71.9 BUN/Creatinine Ratio 17.4 Random Glucose 188 mg/dl Calcium Level 9.0 mg/dl Assessment and Plan 71yo female - 1. acute hypoxic resp failure 2nd to COPD exacerbation triggered by influenza type A infection - former resolved, latter improving. 2. flu A - improved clinically. Finishing tamiflu course - day # 4 of Rx. 3. COPD with exacerbation - improving. But leave steroids as is today; hopefully wean tomorrow. add mucinex 1200mg BID add incentive ana appreciate pulmonary recs 4. morbid obesity with BMI 48 5. PAF - has been in NSR on telemetry; cont xarelto for anticoagulation. 6. hypothyroidism - TSH is compensated. Cont synthroid. 7. HTN - controlled. 8. DVT proph - xarelto. 9. +troponin - myocardial demand ischemia in setting of #1 above. 10. report of dysphagia - speech therapy consult. stricture of esophagus? dysmotility? mech soft diet until speech sees can move to med/surg PT/OT evals
[2017-06-19] MEDS: LEVOTHYROXINE 75 MCG TAB PO SCH (06:43)
[2017-06-19] MEDS: METHYLPREDNISOLONE IV 60 MG in SYRINGE 0 ML IV SCH ×2 (07:39→20:41)
[2017-06-19] MEDS: DOCUSATE SODIUM/SENNA 50/8.6MG TAB PO SCH (09:54)
[2017-06-19] MEDS: FUROSEMIDE 40 MG TAB PO SCH (09:54)
[2017-06-19] MEDS: METOPROLOL SUCC 50MG EXT REL TAB PO SCH (09:54)
[2017-06-19] MEDS: BENZONATATE 100MG CAP PO SCH ×2 (09:54→20:42)
[2017-06-19] MEDS: CYANOCOBALAMIN 500 MCG TAB (VIT B-12) PO SCH (09:54)
[2017-06-19] MEDS: FLECAINIDE ACETATE 100 MG TAB PO SCH ×2 (09:54→20:50)
[2017-06-19] MEDS: OSELTAMIVIR PHOSPHATE 75 MG CAP PO SCH ×2 (09:55→20:47)
[2017-06-19] MEDS: CALCIUM 600MG + VIT D 400 IU TAB PO SCH ×2 (09:55→20:44)
[2017-06-19] MEDS: GUAIFENESIN 600 MG TABCR PO SCH ×2 (09:55→20:48)
[2017-06-19] MEDS: RIVAROXABAN 20 MG TAB PO SCH (09:55)
[2017-06-19] MEDS: PANTOprazole SOD 40 MG TAB PO SCH (09:55)
[2017-06-19] MEDS ORDERED: NIFEdipine 30 MG CR TAB PO STA (11:03)
--- NOTE | 2017-06-19 16:45 | DIAGNOSTIC IMAGING REPORT ---
TWO VIEW CHEST CLINICAL HISTORY: Influenza. FINDINGS: PA and lateral chest radiographs are compared to study dated 06/15/2017. The heart is enlarged and there is atherosclerotic calcification of the thoracic aorta. The pulmonary mass culture is noncongested. Chronic interstitial thickening is similar to previous. No airspace consolidation or pleural effusion is identified. There is no pneumothorax. The skeletal structures are osteopenic. Degenerative change and hyperkyphosis are noted in the thoracic spine. Cholecystectomy clips are present in the right upper quadrant. IMPRESSION: Cardiomegaly with no acute cardiopulmonary abnormality. Electronically signed by: Tommy Cardona M.D. 06/19/2017 4:44 PM Dictated Date/Time: 06/19/2017 4:43 PM
[2017-06-19] MEDS: LATANOPROST 0.005% OP SOLN 2.5 ML BTL OPB SCH (20:43)
[2017-06-19] MEDS: ATORVASTATIN 20 MG TAB PO SCH (20:43)
[2017-06-19] MEDS: DIGOXIN 0.25 MG TAB PO SCH (20:46)
[2017-06-19] MEDS: GABAPENTIN 300 MG CAP PO SCH (20:47)
[2017-06-20] VITALS (12 sets, daily range): BP systolic 137–154; BP diastolic 65–80; PULSE 46–63; TEMP 36.3–36.8; O2SAT 91–97
[2017-06-20] MEDS: LEVALBUTEROL 1.25MG/3ML NEB INH SCH ×6 (03:26→23:17)
[2017-06-20] MEDS: IPRATROPIUM BROMIDE NEB SOLN 0.02% 2.5 ML VIAL INH SCH ×6 (03:26→23:17)
[2017-06-20] MEDS: LEVOTHYROXINE 75 MCG TAB PO SCH (06:07)
[2017-06-20] MEDS: METOPROLOL SUCC 50MG EXT REL TAB PO SCH (07:46)
[2017-06-20] MEDS: RIVAROXABAN 20 MG TAB PO SCH (07:47)
[2017-06-20] MEDS: DOCUSATE SODIUM/SENNA 50/8.6MG TAB PO SCH (07:47)
[2017-06-20] MEDS: BENZONATATE 100MG CAP PO SCH ×3 (07:47→21:07)
[2017-06-20] MEDS: GUAIFENESIN 600 MG TABCR PO SCH ×2 (07:47→21:10)
[2017-06-20] MEDS: CYANOCOBALAMIN 500 MCG TAB (VIT B-12) PO SCH (07:47)
[2017-06-20] MEDS: FLECAINIDE ACETATE 100 MG TAB PO SCH ×2 (07:48→21:13)
[2017-06-20] MEDS: FUROSEMIDE 40 MG TAB PO SCH (07:48)
[2017-06-20] MEDS: CALCIUM 600MG + VIT D 400 IU TAB PO SCH ×2 (07:48→21:11)
[2017-06-20] MEDS: PANTOprazole SOD 40 MG TAB PO SCH (07:49)
[2017-06-20] MEDS: NIFEdipine 30 MG CR TAB PO SCH (07:49)
--- NOTE | 2017-06-20 07:49 | Progress Note ---
Subjective Date of Service: Jun 19, 2017. Subjective Pt evaluation today including: conversation w/ patient, physical exam, chart review, lab review Pain: none PO Intake: improved Voiding: no voiding problems "I feel much better" With that said she continues with "fits" of coughing Cough continues to be productive of green sputum Denies dyspnea at rest Down to 2 L NC O2 Problem List Medical Problems: (1) Acute bronchitis Status: Acute (2) COPD exacerbation Status: Acute (3) COPD exacerbation Status: Acute (4) Elevated troponin Status: Acute (5) Hyponatremia Status: Acute (6) Hypoxia Status: Acute (7) Influenza A Status: Acute Review of Systems Constitutional: No fever Respiratory: + cough, + sputum, + wheezing, No dyspnea at rest, No hemoptysis Cardiac: No chest pain, No orthopnea Abdomen: No pain, No diarrhea, No constipation Objective Vital Signs Date Time Temp Pulse Resp B/P (MAP) Pulse Ox O2 Delivery O2 Flow Rate FiO2 06/19/17 20:50 55 06/19/17 20:46 55 06/19/17 20:11 46 16 97 Nasal Cannula 2.0 06/19/17 15:40 Nasal Cannula 2.0 06/19/17 15:14 36.9 51 20 152/81 (104) 96 Nasal Cannula 3.0 06/19/17 11:50 50 18 150/70 (96) 94 Nasal Cannula 2.0 06/19/17 11:17 59 16 94 Nasal Cannula 2.0 06/19/17 10:00 Nasal Cannula 2.0 06/19/17 08:00 Room Air 06/19/17 07:32 36.8 58 18 173/90 (117) 92 Room Air 06/19/17 07:07 56 16 92 Nasal Cannula 2.0 06/19/17 03:50 59 16 97 Nasal Cannula 2.0 06/19/17 00:00 Room Air 06/18/17 23:23 36.5 58 20 174/77 (109) 92 Room Air 06/18/17 23:10 58 16 94 Room Air Physical Exam General Appearance: no apparent distress, + obese ENT: pharynx normal Neck: no JVD Respiratory/Chest: no respiratory distress, no accessory muscle use, + wheezing , + pertinent finding (airation improved; wheezing improved) Cardiovascular: regular rate, rhythm, no gallop, no murmur Abdomen: normal bowel sounds, non tender, soft, no organomegaly Extremities: no pedal edema Neurologic/Psychiatric: alert, oriented x 3 Assessment and Plan 71yo female - 1. acute hypoxic resp failure 2nd to COPD exacerbation triggered by influenza type A infection - former resolved, latter improving; wean o2; finish tamiflu course. 2. flu A - improved clinically. Finish tamiflu course today - day # 5 of Rx. 3. COPD with exacerbation - improving. Wean steroids to q12h dosing. Repeat cxr today to ensure no complicating pneumonia or CHF. cont mucinex 1200mg BID cont incentive ana appreciate pulmonary recs send sputum cx due to green sputum increase tessalon to 200mg TID 4. morbid obesity with BMI 48 5. PAF - had been in NSR on telemetry; cont xarelto for anticoagulation. 6. hypothyroidism - TSH is compensated. Cont synthroid. 7. HTN - uncontrolled, likely due to steroids; add nifedipine xr 30mg daily. 8. DVT proph - xarelto. 9. +troponin - myocardial demand ischemia in setting of #1 above. 10. report of dysphagia - speech therapy consult appreciated. stricture of esophagus? dysmotility? [facility] soft diet recommend outpatient GI referral for consideration of EGD PT/OT evals appreciated Continued [facility] stay due to: multiple IV medications needed Discharge planning: home
[2017-06-20] MEDS: METHYLPREDNISOLONE IV 60 MG in SYRINGE 0 ML IV SCH (07:53)
[2017-06-20] MEDS: METHYLPREDNISOLONE IV 30 MG in SYRINGE 0 ML IV SCH (21:06)
[2017-06-20] MEDS: DIGOXIN 0.25 MG TAB PO SCH (21:10)
[2017-06-20] MEDS: LATANOPROST 0.005% OP SOLN 2.5 ML BTL OPB SCH (21:10)
[2017-06-20] MEDS: ATORVASTATIN 20 MG TAB PO SCH (21:12)
[2017-06-20] MEDS: GABAPENTIN 300 MG CAP PO SCH (21:12)
--- NOTE | 2017-06-20 21:28 | Progress Note ---
Subjective Date of Service: Jun 20, 2017. Subjective Pt evaluation today including: conversation w/ patient, conversation w/ family (daughter by phone), physical exam, chart review, lab review, review of studies (cxr from 06/19) Pain: none PO Intake: normal Voiding: no voiding problems no events overnight feels much better cough is less minimal ARMANDO no fevers/chills/myalgias Problem List Medical Problems: (1) Acute bronchitis Status: Acute (2) COPD exacerbation Status: Acute (3) COPD exacerbation Status: Acute (4) Elevated troponin Status: Acute (5) Hyponatremia Status: Acute (6) Hypoxia Status: Acute (7) Influenza A Status: Acute Review of Systems Constitutional: No fever, No chills, No fatigue Respiratory: + sputum (but improved) Cardiac: No chest pain, No orthopnea, No edema Abdomen: No pain Objective Vital Signs Date Time Temp Pulse Resp B/P (MAP) Pulse Ox O2 Delivery O2 Flow Rate FiO2 06/20/17 21:10 62 06/20/17 19:44 57 16 95 Room Air 06/20/17 16:00 Room Air 06/20/17 14:44 36.8 59 18 148/69 (95) 91 Room Air 06/20/17 14:42 56 14 91 Room Air 06/20/17 11:51 51 96 06/20/17 11:23 55 18 94 Room Air 06/20/17 08:00 Nasal Cannula 2.0 06/20/17 07:28 36.3 46 20 137/68 (91) 97 Nasal Cannula 2.0 06/20/17 07:19 49 14 97 Nasal Cannula 2.0 06/20/17 03:28 57 16 93 Nasal Cannula 2.0 06/20/17 00:35 92 Nasal Cannula 2.0 06/20/17 00:18 36.7 56 20 154/65 (94) 92 2.0 06/19/17 23:02 55 16 91 Nasal Cannula 2.0 Physical Exam General Appearance: no apparent distress, + obese ENT: pharynx normal Neck: no JVD Respiratory/Chest: no respiratory distress, no accessory muscle use, + wheezing (markedly improved today; good airation) Cardiovascular: regular rate, rhythm, no gallop, no murmur Abdomen: normal bowel sounds, non tender, soft, no organomegaly Extremities: no pedal edema Neurologic/Psychiatric: alert, oriented x 3 Assessment and Plan 71yo female - 1. acute hypoxic resp failure 2nd to COPD exacerbation triggered by influenza type A infection - resolved. 2. flu A - resolved, has finished 5-day tamiflu course. 3. COPD with exacerbation - improving nicely. Wean steroids to 30mg q12h dosing, then prednisone tomorrow. cont mucinex 1200mg BID + tessalon 200mg prn cont incentive ana appreciate pulmonary recs sputum cx negative to date 4. morbid obesity with BMI 48 5. PAF - had been in NSR on telemetry; cont xarelto for anticoagulation. 6. hypothyroidism - TSH is compensated. Cont synthroid. 7. HTN - uncontrolled but now improved with nifedipine xr 30mg daily. 8. DVT proph - xarelto. 9. +troponin - myocardial demand ischemia in setting of #1 above. 10. report of dysphagia - speech therapy consult appreciated. stricture of esophagus? dysmotility? mech soft diet recommend outpatient GI referral for consideration of EGD 11. hyperglycemia - check a1c in the AM, r/o early T2DM PT/OT evals appreciated - cleared for home anticipate d/c home tomorrow Continued [facility] stay due to: multiple IV medications needed Discharge planning: home
[2017-06-21] VITALS (10 sets, daily range): BP systolic 133–154; BP diastolic 69–75; PULSE 53–87; TEMP 36.5–36.8; O2SAT 91–98
[2017-06-21] MEDS: IPRATROPIUM BROMIDE NEB SOLN 0.02% 2.5 ML VIAL INH SCH ×6 (03:44→23:22)
[2017-06-21] MEDS: LEVALBUTEROL 1.25MG/3ML NEB INH SCH ×6 (03:44→23:22)
[2017-06-21] MEDS: LEVOTHYROXINE 75 MCG TAB PO SCH (05:23)
[2017-06-21] MEDS: CALCIUM 600MG + VIT D 400 IU TAB PO SCH ×2 (07:38→20:34)
[2017-06-21] MEDS: METHYLPREDNISOLONE IV 30 MG in SYRINGE 0 ML IV SCH ×2 (07:38→20:50)
[2017-06-21] MEDS: CYANOCOBALAMIN 500 MCG TAB (VIT B-12) PO SCH (07:39)
[2017-06-21] MEDS: FUROSEMIDE 40 MG TAB PO SCH (07:39)
[2017-06-21] MEDS: NIFEdipine 30 MG CR TAB PO SCH (07:39)
[2017-06-21] MEDS: RIVAROXABAN 20 MG TAB PO SCH (07:39)
[2017-06-21] MEDS: DOCUSATE SODIUM/SENNA 50/8.6MG TAB PO SCH (07:39)
[2017-06-21] MEDS: GUAIFENESIN 600 MG TABCR PO SCH (07:39)
[2017-06-21] MEDS: BENZONATATE 100MG CAP PO SCH ×3 (07:39→20:35)
[2017-06-21] MEDS: FLECAINIDE ACETATE 100 MG TAB PO SCH ×2 (07:39→20:35)
[2017-06-21] MEDS: PANTOprazole SOD 40 MG TAB PO SCH (07:39)
[2017-06-21] MEDS: METOPROLOL SUCC 50MG EXT REL TAB PO SCH (07:42)
[2017-06-21 08:46] LABS: CALCIUM 9.2 mg/dl (8.5-10.1); CREATININE 0.76 mg/dl (0.60-1.20)
[2017-06-21 09:02] LABS: HEMOGLOBIN A1C 6.6 % (4.5-5.6)
--- NOTE | 2017-06-21 11:51 | Discharge Summary ---
Discharge Summary Date of Service Jun 21, 2017. Discharge Summary Admission Date: Jun 15, 2017 at 19:23 Immunizations: Have You Had Influenza Vaccine: Yes Influenza Vaccine Date: Mar 02, 2013 History of Tetanus Vaccine?: UTD History of Pneumococcal: Yes History of Hepatitis B Vaccine: No Discharge Exam Patient reports feeling better. She state that she still has some weakness and fatigue, but this is getting better every day. Her dysphagia is also improving after implementing the strategies recommended by speech therapy. She complains of dyspnea on exertion but denies any SOB at rest. She still complains of a productive cough with light yellow sputum, as well as intermittent wheezing. The patient denies fevers, chills, sweats, chest pain, palpitations, claudication, nausea, vomiting, abdominal pain, dysuria, hematuria, urinary retention, paralysis, weakness, numbness and tingling. Constitutional: +Generalized weakness, fatigue improving. No fever, No chills , No sweats Eyes: No worsening of vision, No eye pain, No diplopia ENT: +Dysphagia improving. No hearing loss, No nasal symptoms Respiratory: +Productive cough, wheezing, dyspnea on exertion. Cardiovascular: No chest pain, No claudication, No palpitations Abdomen: No pain, No nausea, No vomiting Musculoskeletal: No joint pain, No muscle pain, No swelling Genitourinary - Female: No dysuria, No urinary retention, No hematuria Neurologic: No paralysis, No weakness, No numbness/tingling Integumentary: No rash, No itch, No color change General appearance: +Morbidly obese. Well-developed, well-nourished, no apparent distress Head: Normocephalic, atraumatic Eyes: Normal inspection, PERRL, EOMI ENT: Normal ENT inspection, hearing grossly normal, pharynx normal Neck: Supple, no JVD, trachea midline Respiratory/Chest: +Decreased breath sounds throughout. Mild wheezing. No respiratory distress Cardiovascular: Regular rate & rhythm, no gallop, no murmur Abdomen/GI: Normal bowel sounds, non-tender, soft Extremities/Musculoskeletal: Normal inspection, no calf tenderness, no pedal edema Neurological/Psych: Alert, normal mood/affect, oriented x 3 Skin: Normal color, warm/dry, no rash Hospital Course This includes examination of the patient, discharge planning, medication reconciliation, and communication with other providers. Discharge Instructions Please refer to the electronic Patient Visit Report (Discharge Instructions) for additional information.
[2017-06-21] MEDS ORDERED: NIFE-95 PO (13:15)
[2017-06-21] MEDS ORDERED: BENZ100C7 PO (13:15)
[2017-06-21] MEDS ORDERED: PRED10TA PO (13:15)
[2017-06-21] MEDS ORDERED: GFNSR600 PO (13:15)
--- NOTE | 2017-06-21 14:27 | Hospitalist Progress Note ---
Hospitalist Progress Note Date of Service Jun 21, 2017. (Helen Hernandez ., PA-C) Subjective Pain: None PO Intake: Tolerating PO diet Voiding: no voiding problems Patient reports feeling better. She state that she still has some weakness and fatigue, but this is getting better every day. Her dysphagia is also improving after implementing the strategies recommended by speech therapy. She complains of dyspnea on exertion but denies any SOB at rest. She still complains of a productive cough with light yellow sputum, as well as intermittent wheezing. Pt ambulated in hallway with nurse but was not able to go very far due to severe dyspnea on exertion. O2 sats did maintain 91-92% on room air. The patient denies fevers, chills, sweats, chest pain, palpitations, claudication, nausea, vomiting, abdominal pain, dysuria, hematuria, urinary retention, paralysis, weakness, numbness and tingling. Additional Comments: See HPI for pertinent positives and negatives. All other systems reviewed and negative. (Helen Hernandez ., PA-C) Objective Vital Signs Date Time Temp Pulse Resp B/P (MAP) Pulse Ox O2 Delivery O2 Flow Rate FiO2 06/21/17 11:27 65 18 98 Nasal Cannula 2.0 06/21/17 08:18 36.8 57 18 153/75 (101) 96 2.0 06/21/17 08:00 Nasal Cannula 2.0 06/21/17 07:37 53 16 95 Nasal Cannula 3.0 06/21/17 03:44 66 16 97 Nasal Cannula 3.0 06/21/17 00:20 Room Air 06/20/17 23:56 36.7 63 20 153/80 (104) 96 2.0 06/20/17 23:18 60 16 96 Room Air 06/20/17 21:10 62 06/20/17 20:00 Room Air 06/20/17 19:44 57 16 95 Room Air 06/20/17 16:00 Room Air 06/20/17 14:44 36.8 59 18 148/69 (95) 91 Room Air 06/20/17 14:42 56 14 91 Room Air (Helen Hernandez ., PA-C) Physical Exam Notes: General appearance: +Morbidly obese. Well-developed, well-nourished, no apparent distress Head: Normocephalic, atraumatic Eyes: Normal inspection, PERRL, EOMI ENT: Normal ENT inspection, hearing grossly normal, pharynx normal Neck: Supple, no JVD, trachea midline Respiratory/Chest: +Decreased breath sounds throughout. Wheezing. No respiratory distress Cardiovascular: Regular rate & rhythm, no gallop, no murmur Abdomen/GI: Normal bowel sounds, non-tender, soft Extremities/Musculoskeletal: Normal inspection, no calf tenderness, no pedal edema Neurological/Psych: Alert, normal mood/affect, oriented x 3 Skin: Normal color, warm/dry, no rash (Helen Hernandez ., ULISES) Laboratory Results Last 24 Hours Test 06/21/17 07:53 Sodium Level 137 mmol/L Potassium Level 4.0 mmol/L Chloride Level 95 mmol/L Carbon Dioxide Level 33 mmol/L Anion Gap 9.0 mmol/L Blood Urea Nitrogen 23 mg/dl Creatinine 0.76 mg/dl Est Creatinine Clear Calc Drug Dose 86.1 ml/min Estimated GFR () 92.8 Estimated GFR (Non- 80.0 BUN/Creatinine Ratio 30.4 Random Glucose 143 mg/dl Estimated Average Glucose 143 mg/dl Hemoglobin A1c 6.6 % Calcium Level 9.2 mg/dl (Helen Hernandez ., ULISES) Assessment and Plan 71 y/o female with a history of HTN, HLD, paroxysmal a-fib on chronic AC, COPD, asthma, hypothyroidism, neuropathy, and LISSETH who presents cough, wheezing and shortness of breath Acute hypoxic respiratory failure secondary to COPD exacerbation and influenza-- improving -Admit to telemetry. Stable, transferred to med/surg -Completed 5 day course of Tamiflu -Continue Solu-Medrol 30 mg IV q12h at least one more day due to severe ARMANDO in critical access [facility], then prednisone taper at discharge -D/C Mucinex, start Robitussin AC q6h prn cough. Continue Tessalon Perles 200 mg PO TID -Incentive spirometry. Add flutter valve -Pulmonology following, appreciate recs: Spoke with Tommy Stern PA-C. Agree with Symbicort and repeat CXR. Recommend checking procalcitonin. -Sputum culture heavy normal rubén -Start Symbicort 2 puffs inh BID as pt does not have any maintenance therapy for asthma or COPD at home -Repeat CXR -Check procalcitonin Elevated troponin--resolved, now WNL -Likely secondary to demand ischemia due to above DM II--no recorded h/o DM, HgbA1c 6.6 on 06/21 -Insulin sliding scale -Check BSGs q ac and qhs Dysphagia--improving with speech therapy recommended precautions -Mechanical soft, slippery diet, thin liquids per speech therapy -Will need outpt GI follow up for possible EGD and/or barium swallow HTN, HLD--stable -Continue nifedipine 30 mg PO qd, Toprol XL 100 mg PO qd, and Lipitor 20 mg PO qd Paroxysmal a-fib--stable, NSR -Continue digoxin 0.25 mg PO qd, flecainide 100 mg PO BID, metoprolol as above, and Xarelto 20 mg PO qd Hypothyroidism -Continue Synthroid 75 mcg PO qd Neuropathy -Continue gabapentin 300 mg PO qd DVT prophylaxis -Xarelto Code Status -Level I, FULL RESUSCITATION STATUS Dispo -PT/OT cleared to return home with rolling walker which pt already has at home (Helen Hernandez ., PA-C) Attending Attestation: Pt seen/examined, chart reviewed, care plan d/w AIDA Hernandez. I agree w/ the cisneros components of her documentation. Pt with severe coughing fit during my visit. Has had several fits throughout the day today. She admits she doesn't feel as good as yesterday. Had significant ARMANDO during a walk in the hallway earlier in the day. VSS sats wnl in RA gen - obese, coughing forcefully heart - RRR lungs - extensive wheezing - worse than yesterday; no rales; airation good, however abd - soft ext - no edema records reviewed from [employer] - has not seen Dr. Samayoa, her juice standardizer, in 3-4 years no PFTs on record diagnosis is asthma but no mention of COPD sputum cx pending a1c 6.6% A/P: asthma with severe exacerbation, 2nd to influenza infection - worse today. repeat her cxr. start controller agents with symbicort 2 puffs BID add flutter valve robitussin ac prn for cough no change in IV steroids today no evidence of CHF on x-ray or clinically (in fact, her weight is down 7 pounds from her office weight 1 week ago) flu A infection - tamiflu course resolved. no fevers. procalcitonin negative. dysphagia - GI f/u after d/c J KALEN BENNETT (Steven Barton MD)
[2017-06-21] MEDS ORDERED: GLUCOSE 40% GEL 15 GM TUBE PO PRN (14:30)
[2017-06-21] MEDS ORDERED: GLUCOSE 10 TABS/TUBE PO PRN (14:30)
[2017-06-21] MEDS ORDERED: DEXTROSE 50% 50 ML SYR IV PRN (14:30)
[2017-06-21] MEDS ORDERED: GLUCAGON FOR INJ 1 MG VIAL SQ PRN (14:30)
--- NOTE | 2017-06-21 16:17 | DIAGNOSTIC IMAGING REPORT ---
CHEST 2 VIEWS ROUTINE CLINICAL HISTORY: worsening shortness of breath dyspnea COMPARISON STUDY: 06/19/2017 FINDINGS: Mild stable cardiomegaly. Lungs are clear. Diaphragms smooth. IMPRESSION: No acute process. No change from the prior exam. The above report was generated using voice recognition software. It may contain grammatical, syntax or spelling errors. Electronically signed by: Jaylen Ronquillo M.D. 06/21/2017 4:15 PM Dictated Date/Time: 06/21/2017 4:15 PM
[2017-06-21] MEDS: INSULIN ASPART 100 UNITS/ML 3 ML PEN SC SCH ×2 (17:41→20:45)
[2017-06-21] MEDS: ACETAMINOPHEN 325 MG TAB PO PRN (19:25)
[2017-06-21] MEDS: BUDESONIDE/FORMOTEROL FUMARATE 160/4.5 60 PUFFS/INHALER INH SCH (20:33)
[2017-06-21] MEDS: LATANOPROST 0.005% OP SOLN 2.5 ML BTL OPB SCH (20:33)
[2017-06-21] MEDS: ATORVASTATIN 20 MG TAB PO SCH (20:34)
[2017-06-21] MEDS: GABAPENTIN 300 MG CAP PO SCH (20:34)
[2017-06-21] MEDS: DIGOXIN 0.25 MG TAB PO SCH (20:37)
[2017-06-22] VITALS (14 sets, daily range): BP systolic 102–143; BP diastolic 49–88; PULSE 62–87; TEMP 36.6–37.8; O2SAT 91–97
[2017-06-22] MEDS: LEVALBUTEROL 1.25MG/3ML NEB INH SCH ×6 (03:36→23:30)
[2017-06-22] MEDS: IPRATROPIUM BROMIDE NEB SOLN 0.02% 2.5 ML VIAL INH SCH ×6 (03:36→23:30)
[2017-06-22] MEDS ORDERED: COUGH DROP (SUGAR FREE) LOZ 24 LOZ/1 BOX LOZ ONE (04:18)
[2017-06-22] MEDS ORDERED: NURSING DECISION MEDICATION ORDER SCH (04:30)
[2017-06-22] MEDS ORDERED: COUGH DROP (SUGAR FREE) LOZ 24 LOZ/1 BOX LOZ PRN (05:00)
[2017-06-22] MEDS ORDERED: ASPIRIN 81 MG CHEW PO STA (05:50)
--- NOTE | 2017-06-22 05:52 | Progress Note ---
Progress Note Date of Service Jun 22, 2017. Progress Note 03/09 chest pain this am, non specific t wave changes on EKG on xarelto ASA 325 mg chew, troponin trend
[2017-06-22] MEDS: LEVOTHYROXINE 75 MCG TAB PO SCH (06:01)
[2017-06-22] MEDS ORDERED: MoRPHine SULFATE 2 MG/ML CARP IV STA (06:40)
[2017-06-22] MEDS ORDERED: MoRPHine SULFATE 2 MG/ML CARP ONE (06:46)
[2017-06-22 07:25] LABS: ALBUMIN 2.9 gm/dl (3.4-5.0); CALCIUM 8.9 mg/dl (8.5-10.1); CREATININE 0.86 mg/dl (0.60-1.20)
[2017-06-22 07:27] LABS: TOTAL PROTEIN 6.8 gm/dl (6.4-8.2)
--- NOTE | 2017-06-22 07:44 | DIAGNOSTIC IMAGING REPORT ---
CHEST ONE VIEW PORTABLE HISTORY: 71 years-old Female chest pain acute atypical chest pain COMPARISON: Chest radiograph 06/21/2017 TECHNIQUE: Portable AP view of the chest FINDINGS: Cardiac silhouette is mildly enlarged, unchanged. Atherosclerosis of the aorta. No pneumothorax. There are patchy bibasilar consolidative opacities, right greater than left. Mild right hemidiaphragmatic elevation. Suspected trace effusions. Bones of the chest appear grossly intact. Remote fracture deformity of the left occiput humerus. IMPRESSION: 1. Patchy subsegmental consolidative opacities, right greater than left suggest atelectasis or pneumonia. 2. Cardiomegaly without overt pulmonary edema. 3. Suspected trace bilateral pleural effusions. The above report was generated using voice recognition software. It may contain grammatical, syntax or spelling errors. Electronically signed by: Everett Jack M.D. 06/22/2017 7:42 AM Dictated Date/Time: 06/22/2017 7:41 AM
[2017-06-22] MEDS ORDERED: NITROGLYCERIN 0.4 MG SL PER TAB CHARGE ONE (07:52)
[2017-06-22] MEDS: CALCIUM 600MG + VIT D 400 IU TAB PO SCH ×2 (07:58→20:40)
[2017-06-22] MEDS: BUDESONIDE/FORMOTEROL FUMARATE 160/4.5 60 PUFFS/INHALER INH SCH ×2 (07:58→20:39)
[2017-06-22] MEDS: METHYLPREDNISOLONE IV 30 MG in SYRINGE 0 ML IV SCH ×2 (07:58→21:23)
[2017-06-22] MEDS: NIFEdipine 30 MG CR TAB PO SCH (07:59)
[2017-06-22] MEDS: DOCUSATE SODIUM/SENNA 50/8.6MG TAB PO SCH (07:59)
[2017-06-22] MEDS: FUROSEMIDE 40 MG TAB PO SCH (07:59)
[2017-06-22] MEDS: PANTOprazole SOD 40 MG TAB PO SCH (07:59)
[2017-06-22] MEDS: BENZONATATE 100MG CAP PO SCH ×3 (08:00→20:41)
[2017-06-22] MEDS: METOPROLOL SUCC 50MG EXT REL TAB PO SCH (08:00)
[2017-06-22] MEDS: CYANOCOBALAMIN 500 MCG TAB (VIT B-12) PO SCH (08:00)
[2017-06-22] MEDS ORDERED: NITROGLYCERIN 0.4 MG SL PER TAB CHARGE SL PRN (08:00)
[2017-06-22] MEDS: FLECAINIDE ACETATE 100 MG TAB PO SCH ×2 (08:00→20:41)
[2017-06-22] MEDS: RIVAROXABAN 20 MG TAB PO SCH (08:00)
[2017-06-22] MEDS: INSULIN ASPART 100 UNITS/ML 3 ML PEN SC SCH ×4 (08:07→20:42)
[2017-06-22] MEDS ORDERED: KETOROLAC TROMETHAMINE 30 MG/ML VIAL IV STA (08:09)
[2017-06-22] MEDS ORDERED: KETOROLAC TROMETHAMINE 30 MG/ML VIAL ONE (08:14)
[2017-06-22] MEDS: GUAIFENESIN/CODEINE 100MG/10MG 5ML UDC PO PRN ×3 (08:18→22:52)
[2017-06-22] MEDS ORDERED: OPTIRAY 320 IV PRN (08:45)
--- NOTE | 2017-06-22 12:16 | DIAGNOSTIC IMAGING REPORT ---
CT ANGIOGRAM OF THE CHEST CLINICAL HISTORY: Dyspnea. Atypical chest pain. COMPARISON STUDY: Chest x-ray dated 06/22/2017. Chest CT dated 07/18/2013. TECHNIQUE: Following the IV administration of 93 cc of Optiray 320, CT angiogram of the chest was performed from the upper abdomen to the thoracic inlet utilizing the pulmonary embolus protocol. Images are reviewed in the axial, sagittal, and coronal planes. 3-D MIPS images are created and assessed. IV contrast was administered without complication. A dose lowering technique was utilized adhering to the principles of ALARA. The examination is degraded by motion artifact. CT DOSE: 654.31 mGy.cm FINDINGS: Thyroid: Imaged portions of the thyroid gland are normal in size and attenuation. A 1.8 cm low-attenuation nodule is again seen in the left lobe. Thoracic aorta: There is atherosclerotic calcification of the thoracic aorta, which is normal in caliber and demonstrates bovine variant arch anatomy. No dissection is seen. Pulmonary vasculature: The main pulmonary arteries are dilated suggesting pulmonary artery hypertension. There are no central filling defects identified in main, lobar, or proximal segmental pulmonary branches to suggest pulmonary embolus. Evaluation of the peripheral branches is degraded by motion artifact. Heart: The heart is enlarged and without pericardial effusion. The coronary arteries are densely calcified. Lungs and pleural spaces: Evaluation of the lung parenchyma is degraded by respiratory motion artifact. Mild emphysematous change is suspected. There is dense airspace consolidation at the right lung base. Patchy airspace consolidation is seen in the right upper, right middle, and right lower lobes. Linear atelectasis is noted at the left lung base. The left lung is otherwise clear. There is material filling the right lower lobe airways. The trachea is patent. Mediastinum: There are scattered subcentimeter mediastinal lymph nodes. These are not pathologically enlarged by size criteria. Sara: Mildly enlarged right hilar lymph nodes measure up to 1.3 cm in short axis. No left hilar adenopathy is seen. Axillae: There is no axillary lymphadenopathy. Upper abdomen: 3.7 cm cyst is seen in the upper pole the right kidney. There is a small hiatal hernia. Skeletal structures: The Skeletal structures are osteopenic. Degenerative change and hyperkyphosis are noted in the thoracic spine. No lytic or blastic bony lesions are seen. IMPRESSION: 1. There is no evidence of central pulmonary embolus in the main, lobar, or proximal segmental pulmonary arteries. 2. Cardiomegaly and suspect emphysema. 3. There is dense airspace consolidation at the right lung base with patchy airspace consolidation seen throughout the remainder of the right lung. The appearance suggests pneumonia. Clinical correlation will be required and radiographic follow-up to resolution is recommended. 4. Fluid/material fills the right lower lobe airways. Correlate clinically for evidence of aspiration. 5. Mildly enlarged right hilar lymph nodes are likely on a reactive basis. 6. Additional findings as above. Electronically signed by: Tommy Cardona M.D. 06/22/2017 12:15 PM Dictated Date/Time: 06/22/2017 12:08 PM
[2017-06-22] MEDS ORDERED: PIPERACILL/TAZOBAC IV 3.375 GM in DEXTROSE 5% 100ML 100 ML IV SCH (12:30)
[2017-06-22] MEDS ORDERED: PIPERACILL/TAZOBAC CONSULT ACTIVE PRN (12:30)
[2017-06-22] MEDS ORDERED: CEFEPIME IV 2,000 MG in SYRINGE 7.5 ML IV STA (12:43)
[2017-06-22] MEDS: POLYETHYLENE (MIRALAX) 17 GM PACK PO SCH (12:58)
[2017-06-22] MEDS: SENNA 8.6 MG TAB PO SCH (12:58)
[2017-06-22] MEDS: ACETAMINOPHEN 325 MG TAB PO PRN (15:41)
--- NOTE | 2017-06-22 15:53 | Pulmonary Consultation ---
History General Date of Service: Jun 22, 2017. Stated Complaint: Acute Hypoxemic Respiratory Failure, Influenza A HPI The patient is a 71 year old female who presents to [facility] with complaints of Acute Hypoxemic Respiratory Failure, Influenza A. The patient's primary care provider is Harsha Venegas M.D.. Historian: patient Onset: last week Severity: moderate Complaint Status: improved, persistent Quality of Pain: aching, dull Method of Injury: unknown Modifying Factors: none Review of Systems Constitutional: reports: no symptoms Eyes: denies: no symptoms, as stated in HPI, eye pain, tearing, itching, redness, discharge, double vision, visual changes, blurred vision, photophobia, other ENT: reports: no symptoms, denies: as stated in HPI, ear pain, ear discharge, loss of hearing, tinnitus, nasal pain, nasal congestion, rhinorrhea, epistaxis, sore throat, stridor, throat swelling, mouth pain, mouth swelling, dental pain, gum swelling, other Cardiovascular: reports: chest pressure Respiratory: reports: cough, wheezing Gastrointestinal: reports: no symptoms Musculoskeletal: reports: no symptoms Neurologic: reports: no symptoms Past Medical History Past Medical History: Asthma, chronic persistent, multiple admissions to the hospital in that regard. History of A. fib, systolic heart failure. Family History FHx: heart disease Stroke Parent: Heart Disease (parents), Other: Asthma (cousins), Cancer (cousins) Social History Hx Tobacco Use In Past Year?: No Smoking Status: Never Smoker Marital status: single Housing status: lives alone Occupational Status: disabled Immunizations History of Influenza Vaccine: Yes Influenza Vaccine Date: Mar 02, 2013 History of Tetanus Vaccine?: UTD History of Pneumococcal: Yes History of Hepatitis B Vaccine: No History of MDRO History of MDRO: No Allergies Coded Allergies: Pecan (Verified Allergy, Unknown, ., 06/15/17) Sulfa Antibiotics (Verified Adverse Reaction, Mild, YEAST INFECTION, ) Current Medications Reported Home Medications Medications Dose Route/Sig Max Daily Dose Days Date Category Dose Instructions Prednisone 10 Mg Tab 10 Mg PO UD 8 06/21/17 Rx 40 mg (4 tabs) daily x 2 days, 30 mg (3 tabs) daily x 2 days, 20 mg (2 tabs) daily x 2 days, 10 mg (1 tab) daily x 2 days Benzonatate 100 Mg Cap 200 Mg PO TID PRN 7 06/21/17 Rx Mucinex Ext Rel (Guaifenesin) 600 Mg Tabcr 1,200 Mg PO Q12 7 06/21/17 Rx Adalat cc (Nifedipine) 30 Mg Tab 30 Mg PO QAM 30 06/21/17 Rx Neurontin (Gabapentin) 300 Mg Cap 300 Mg PO DAILY 06/15/17 Reported Tylenol (Acetaminophen) 325 Mg Tab 650 Mg PO Q4 PRN 06/15/17 Reported MILD PAIN, RATED 1-3 OF 10. MAX 3 GM/24 HRS Levothyroxine Sodium 75 Mcg Tab 75 Mcg PO DAILY 06/15/17 Reported Lasix (Furosemide) 40 Mg Tab 40 Mg PO DAILY 06/15/17 Reported Lipitor (Atorvastatin Calcium) 20 Mg Tab 20 Mg PO QPM 06/15/17 Reported Calcium 600 + D (Calcium Carbonate-Vitamin D) 1 Tab Tab 1 Tab PO BID 06/15/17 Reported Vitamin B-12 (Cyanocobalamin) 500 Mcg Tab 500 Mcg PO DAILY 06/15/17 Reported Xalatan 0.005% Oph Marisol (Latanoprost) 0.005 % Marisol 1 Drops OPB HS 06/15/17 Reported Protonix (Pantoprazole Sodium) 40 Mg Tab 40 Mg PO DAILY 06/15/17 Reported Restasis (Cyclosporine (Ophth)) 0.05 % Emu 1 Drop OPB Q12 06/15/17 Reported Artificial Tears (Artificial Tear Solution) 1 Marisol Marisol 2 Drops OPB QID PRN 06/15/17 Reported Docusate Sodium 100 Mg Cap 100 Mg PO DAILY PRN 06/15/17 Reported Senna Plus (Sennosides-Docusate Sodium) 1 Tab Tab 1 Tab PO DAILY 06/15/17 Reported Oxygen Gas 2 Liters NA PRN 06/15/17 Reported Ipratropium [place] 1 Ea Nebu 1 Dose INH QID PRN 06/15/17 Reported Toprol-Xl (Metoprolol Succinate) 100 Mg Tabcr 100 Mg PO DAILY 06/15/17 Reported Flecainide Acetate 100 Mg Tab 100 Mg PO Q12 06/15/17 Reported Xarelto (Rivaroxaban) 20 Mg Tab 20 Mg PO DAILY 06/15/17 Reported Digoxin 0.25 Mg Tab 0.25 Mg PO DAILY 06/15/17 Reported Prednisone 10 Mg Tab 1 Dose PO UD 06/15/17 Reported TAPER: 60 MG PO DAILY , TAPER BY 10 MG EVERY 2 DAYS UNTIL OFF. LAST RX 06/14/17, PER MED LIST Augmentin 875-125 mg (Amoxicillin & Pot Clavulanate) 1 Tab Tab 1 Tab PO BID 06/15/17 Reported Atrovent Hfa (Ipratropium [place]) 200 Puffs/3400 Mcg Aers 2 Puffs INH QID PRN 06/15/17 Reported Physical Physical Exam Vital Signs: Date Time Temp Pulse Resp B/P (MAP) Pulse Ox O2 Delivery O2 Flow Rate FiO2 06/22/17 15:20 72 18 97 Nasal Cannula 2.0 06/22/17 12:00 36.9 64 24 128/88 (101) 95 Nasal Cannula 2.0 06/22/17 11:10 37.8 74 18 92 2.0 06/22/17 08:08 74 108/61 (77) 06/22/17 08:00 Nasal Cannula 2.0 06/22/17 07:53 79 129/65 (86) 06/22/17 07:11 72 18 92 Nasal Cannula 2.0 06/22/17 07:10 37.8 72 20 135/70 (91) 92 2.0 06/22/17 06:53 36.8 71 24 128/71 (90) 93 Nasal Cannula 2.0 143/74 (97) 06/22/17 05:22 68 24 135/69 (91) 91 Nasal Cannula 2.0 06/22/17 03:38 74 18 95 Nasal Cannula 2.0 06/22/17 00:00 Nasal Cannula 2.0 06/21/17 23:26 36.8 87 20 133/70 (91) 92 Room Air 06/21/17 23:22 70 18 95 Nasal Cannula 2.0 06/21/17 20:37 85 06/21/17 20:06 83 18 92 Nasal Cannula 2.0 06/21/17 19:55 91 Room Air 06/21/17 16:00 91 Room Air 06/21/17 16:00 36.5 76 20 154/69 (97) 91 General Appearance: WELL-APPEARING Eyes: PERRLA, NO DISCHARGE Neck: NORMAL RANGE OF MOTION Respiratory: BREATH SOUNDS NORMAL Cardiovasular: REGULAR RATE/RHYTHM, NORMAL S1S2 Abdomen: NON TENDER, NORMAL BOWEL SOUNDS Upper Extremities: NO EDEMA Psychiatric: NORMAL AFFECT Diagnostics Labs Results Past 24 Hours Test 06/21/17 16:27 06/21/17 20:31 06/22/17 06:33 06/22/17 07:31 Range/Units Bedside Glucose 142 113 162 70-90 mg/dl Sodium Level 134 136-145 mmol/L Potassium Level 4.0 3.5-5.1 mmol/L Chloride Level 95 98-107 mmol/L Carbon Dioxide Level 33 21-32 mmol/L Anion Gap 6.0 3-11 mmol/L Blood Urea Nitrogen 22 7-18 mg/dl Creatinine 0.86 0.60-1.20 mg/dl Est Creatinine Clear Calc Drug Dose 76.1 ml/min Estimated GFR () 79.9 Estimated GFR (Non- 68.9 BUN/Creatinine Ratio 25.1 10-20 Random Glucose 179 70-99 mg/dl Calcium Level 8.9 8.5-10.1 mg/dl Total Bilirubin 0.8 0.2-1 mg/dl Aspartate Amino Transf (AST/SGOT) 14 15-37 U/L Alanine Aminotransferase (ALT/SGPT) 24 12-78 U/L Alkaline Phosphatase 71 45-117 U/L Troponin I 0.020 0-0.045 ng/ml Total Protein 6.8 6.4-8.2 gm/dl Albumin 2.9 3.4-5.0 gm/dl Globulin 3.9 2.5-4.0 gm/dl Albumin/Globulin Ratio 0.8 0.9-2 Lipase 63 73-393 U/L Test 06/22/17 12:20 Range/Units Troponin I 0.026 0-0.045 ng/ml Microbiology Results 06/22/17 MRSA DNA Surveillance Screen - Final, Complete Specimen Negative for MRSA by DNA Probe Radiology Interpretation: CXR NORMAL (reviewed personally which revealed mucoid impaction, COPD changes, mediastinal lymphadenopathy. Small atelectasis rather than just infiltrate.) EKG Interpretation: NORMAL EKG, NO CHANGE FROM PRIOR EKG (right bundle branch block appear to be chronic.) Impression Assessment and Plan #1 chronic persistent asthma. #2 mucoid impaction with bilateral atelectasis. #3 possible ongoing infiltrate on the left lower lobe. #4 mediastinal lymphadenopathy appear to be chronic since 2012, noted on previous CAT scan. #5 history of coronary artery disease, A. fib, currently rate controlled. #6 acute chest pain syndrome requiring telemetry. Plan: #1 continue with the steroids. The patient appeared to be comfortable from pulmonary standpoint. I will continue with Solu-Medrol 30 mg IV every 12 hours. #2 continue long-acting beta agonist including Symbicort. #3 negative short acting beta agonist. #4 the patient is on cefepime, but she is from home. Antibiotics can be downgraded to ceftriaxone and azithromycin. #5 rule out acute KS. Case discussed with the staff, I have reviewed the labs and imaging personally. Admit To Telemetry Code Status Level 1 - Full Code DVT Prophylaxis SCDs Social Service Consult Receiving Home Health
[2017-06-22] MEDS: CEFTRIAXONE SOD INJ 1 GM in DEXTROSE 5% ADD-VANTAGE 50ML 50 ML IV SCH (16:40)
[2017-06-22] MEDS ORDERED: KETOROLAC TROMETHAMINE 15 MG/ML VIAL IV. PRN (18:00)
[2017-06-22] MEDS: AZITHROMYCIN IV 500 MG in DEXTROSE 5% 250ML 250 ML IV SCH (18:07)
[2017-06-22] MEDS: ATORVASTATIN 20 MG TAB PO SCH (20:40)
[2017-06-22] MEDS: LATANOPROST 0.005% OP SOLN 2.5 ML BTL OPB SCH (20:40)
[2017-06-22] MEDS: GABAPENTIN 300 MG CAP PO SCH (20:40)
[2017-06-22] MEDS: DIGOXIN 0.25 MG TAB PO SCH (20:42)
[2017-06-22] MEDS ORDERED: SODIUM CHLORIDE 0.9% 1000ML 1,000 ML IV SCH (21:30)
[2017-06-22] MEDS ORDERED: CEFEPIME IV 2,000 MG in SYRINGE 7.5 ML IV SCH (22:00)
--- NOTE | 2017-06-22 23:19 | Progress Note ---
Subjective Date of Service: Jun 22, 2017. Subjective Pt evaluation today including: conversation w/ patient, physical exam, chart review, lab review, review of studies (cxr, EKGs), review of inpatient medication list Pain: chest - all over, but worse on right and even under the ribs PO Intake: fair Voiding: no voiding problems developed chest discomfort late last pm and lasted all night worse with coughing worse with movement difficult to lay back or flat due to dyspnea and the pain received morphine at 0600 - didn't help received 2 SL nitros by my order during my bedside visit - no change in her pain EKG reviewed from earlier this AM and during my visit - RBBB, T wave inversions anteriorly - UNCHANGED EKG from her EKG on day of admission requiring 4 L NC this am rather than her typical 2 L at night-time still coughing had multiple coughing fits yesterday Problem List Medical Problems: (1) Acute bronchitis Status: Acute (2) COPD exacerbation Status: Acute (3) COPD exacerbation Status: Acute (4) Elevated troponin Status: Acute (5) Hyponatremia Status: Acute (6) Hypoxia Status: Acute (7) Influenza A Status: Acute Review of Systems Constitutional: No fever Respiratory: + cough, + sputum, + wheezing, + shortness of breath, + dyspnea on exertion Cardiac: + chest pain, + orthopnea, No edema Abdomen: No pain Objective Vital Signs Date Time Temp Pulse Resp B/P (MAP) Pulse Ox O2 Delivery O2 Flow Rate FiO2 06/22/17 08:08 74 108/61 (77) 06/22/17 08:00 Nasal Cannula 2.0 06/22/17 07:53 79 129/65 (86) 06/22/17 07:11 72 18 92 Nasal Cannula 2.0 06/22/17 07:10 37.8 72 20 135/70 (91) 92 2.0 06/22/17 06:53 36.8 71 24 128/71 (90) 93 Nasal Cannula 2.0 143/74 (97) 06/22/17 05:22 68 24 135/69 (91) 91 Nasal Cannula 2.0 06/22/17 03:38 74 18 95 Nasal Cannula 2.0 06/22/17 00:00 Nasal Cannula 2.0 06/21/17 23:26 36.8 87 20 133/70 (91) 92 Room Air 06/21/17 23:22 70 18 95 Nasal Cannula 2.0 06/21/17 20:37 85 06/21/17 20:06 83 18 92 Nasal Cannula 2.0 06/21/17 19:55 91 Room Air 06/21/17 16:00 91 Room Air 06/21/17 16:00 36.5 76 20 154/69 (97) 91 06/21/17 15:13 64 18 94 Nasal Cannula 2.0 06/21/17 11:27 65 18 98 Nasal Cannula 2.0 Physical Exam General Appearance: + mild distress (due to chest wall pain, uncomfortable) ENT: pharynx normal Neck: no JVD Respiratory/Chest: + decreased breath sounds (bases), + wheezing (quite mild today), + pertinent finding (significant chest wall tenderness w/ palpation - b/ l chest wall, especially on right) Cardiovascular: regular rate, rhythm, no gallop, no murmur Abdomen: normal bowel sounds, soft, no organomegaly, + tenderness (upper quadrants near the costal margin) Extremities: no pedal edema Neurologic/Psychiatric: alert, oriented x 3 Laboratory Results Last 24 Hours Test 06/21/17 15:46 06/21/17 16:27 06/21/17 20:31 06/22/17 06:33 Procalcitonin < 0.05 ng/ml Bedside Glucose 142 mg/dl 113 mg/dl Sodium Level 134 mmol/L Potassium Level 4.0 mmol/L Chloride Level 95 mmol/L Carbon Dioxide Level 33 mmol/L Anion Gap 6.0 mmol/L Blood Urea Nitrogen 22 mg/dl Creatinine 0.86 mg/dl Est Creatinine Clear Calc Drug Dose 76.1 ml/min Estimated GFR () 79.9 Estimated GFR (Non- 68.9 BUN/Creatinine Ratio 25.1 Random Glucose 179 mg/dl Calcium Level 8.9 mg/dl Total Bilirubin 0.8 mg/dl Aspartate Amino Transf (AST/SGOT) 14 U/L Alanine Aminotransferase (ALT/SGPT) 24 U/L Alkaline Phosphatase 71 U/L Troponin I 0.020 ng/ml Total Protein 6.8 gm/dl Albumin 2.9 gm/dl Globulin 3.9 gm/dl Albumin/Globulin Ratio 0.8 Lipase 63 U/L Test 06/22/17 07:31 Bedside Glucose 162 mg/dl Assessment and Plan 71yo female - 1. chest pain - I believe this is musculoskeletal in nature. It is reproducible on examination, unresponsive to SL nitro, EKG is unchanged, and despite the pain all night troponin is negative. Likely she has chest wall pain from severe coughing (had severe cough all day yesterday). Doesn't sound GI. Risk of PE is quite low due to daily use of xarelto. Doubt cardiac, but will place on telemetry and run serial troponins. Try toradol 30mg IV x 1 now. Will obtain chest CT to r/o developing pneumonia and PE but again latter is unlikely. 2. asthma with severe exacerbation, 2nd to influenza infection - ongoing, but actually her wheezing is much better today despite #1 above. repeat cxr this AM still w/o pneumonia - obtaining chest CT to r/o PE and r/o pneumonia that can't be seen on x-ray. cont symbicort 2 puffs BID cont flutter valve and IS robitussin ac prn for cough no change in IV steroids today no evidence of CHF on x-ray or clinically 3. flu A infection - tamiflu course resolved. no fevers. procalcitonin negative. 4. dysphagia - speech has seen, slippery diet recommended GI f/u after discharge recommended for EGD - r/o stricture, etc. 5. DVT proph - xarelto. 6. h/o PAF - cont fleicinide, cont xarelto, cont dig, cont BB. 7. hypothyroidism - compensated, cont synthroid. 8. constipation - bowel regimen. 9. new onset T2DM - a1c 6.6% - diet control at d/c. While hospitalized novolog w/ meals. Lantus if needed. transfer to telemetry due to #1 Continued [facility] stay due to: ambulation difficulties, multiple IV medications needed, other (worsening chest symptoms ) Discharge planning: home
[2017-06-23] VITALS (13 sets, daily range): BP systolic 110–145; BP diastolic 56–73; PULSE 61–94; TEMP 36.5–37.7; O2SAT 90–96
[2017-06-23] MEDS: IPRATROPIUM BROMIDE NEB SOLN 0.02% 2.5 ML VIAL INH SCH ×6 (04:01→23:43)
[2017-06-23] MEDS: LEVALBUTEROL 1.25MG/3ML NEB INH SCH ×6 (04:01→23:43)
[2017-06-23] MEDS: LEVOTHYROXINE 75 MCG TAB PO SCH (06:00)
[2017-06-23] MEDS: INSULIN ASPART 100 UNITS/ML 3 ML PEN SC SCH ×4 (07:00→20:36)
[2017-06-23 07:53] LABS: HEMATOCRIT 40.4 % (37-47); HEMOGLOBIN 13.3 g/dL (12.0-16.0); MEAN CELL VOLUME 90.2 fL (80-100); MEAN CORPUSCULAR HEMOGLOBIN 29.7 pg (25-34); MEAN CORPUSCULAR HGB CONC 32.9 g/dl (32-36); PLATELET COUNT 204 K/uL (130-400); RED CELL DISTRIBUTION WIDTH CV 14.4 % (11.5-14.5); RED CELL DISTRIBUTION WIDTH SD 47.4 fL (36.4-46.3)
[2017-06-23] MEDS: METHYLPREDNISOLONE IV 30 MG in SYRINGE 0 ML IV SCH ×2 (08:00→20:32)
[2017-06-23] MEDS: CALCIUM 600MG + VIT D 400 IU TAB PO SCH ×2 (08:05→20:29)
[2017-06-23] MEDS: RIVAROXABAN 20 MG TAB PO SCH (08:06)
[2017-06-23] MEDS: FLECAINIDE ACETATE 100 MG TAB PO SCH ×2 (08:06→20:30)
[2017-06-23] MEDS: BENZONATATE 100MG CAP PO SCH ×3 (08:06→20:29)
[2017-06-23] MEDS: NIFEdipine 30 MG CR TAB PO SCH (08:07)
[2017-06-23] MEDS: CYANOCOBALAMIN 500 MCG TAB (VIT B-12) PO SCH (08:07)
[2017-06-23] MEDS: PANTOprazole SOD 40 MG TAB PO SCH (08:07)
[2017-06-23] MEDS: SENNA 8.6 MG TAB PO SCH (08:07)
[2017-06-23] MEDS: FUROSEMIDE 40 MG TAB PO SCH (08:07)
[2017-06-23] MEDS: BUDESONIDE/FORMOTEROL FUMARATE 160/4.5 60 PUFFS/INHALER INH SCH ×2 (08:08→20:27)
[2017-06-23] MEDS: METOPROLOL SUCC 50MG EXT REL TAB PO SCH (08:08)
[2017-06-23] MEDS: POLYETHYLENE (MIRALAX) 17 GM PACK PO SCH (08:08)
[2017-06-23 08:26] LABS: CALCIUM 8.9 mg/dl (8.5-10.1); CREATININE 0.8 mg/dl (0.60-1.20); PHOSPHORUS 3.1 mg/dl (2.5-4.9); POTASSIUM 4.3 mmol/L (3.5-5.1)
[2017-06-23 08:29] LABS: IG# 0.12 K/uL (0.00-0.02); LYMPH % 4.4 %; MONO % 3.6 %; MONO ABS # 0.83 K/uL (0.11-0.59); NEUT % 91.5 %; NEUT ABS # 20.95 K/uL (1.4-6.5)
--- NOTE | 2017-06-23 10:42 | DIAGNOSTIC IMAGING REPORT ---
(BARIUM SWALLOW) ESOPHAGUS CLINICAL HISTORY: r/o esophageal dysfunction; COMPARISON STUDY: None. FLUOROSCOPY TIME: 0.9 minutes. 29 fluoroscopic spot images. FINDINGS: The esophagus is normal in course and caliber. Mild esophageal dysmotility. No hiatus hernia. No gastroesophageal reflux. The contours of the hypopharynx are within normal limits. The barium tablet passed without difficulty. IMPRESSION: Mild esophageal dysmotility. Otherwise, normal barium swallow. Electronically signed by: Douglas La M.D. 06/23/2017 10:40 AM Dictated Date/Time: 06/23/2017 10:37 AM
[2017-06-23] MEDS ORDERED: NURSING VERBAL MED ORDER ONE (12:00)
[2017-06-23] MEDS: ACETAMINOPHEN 325 MG TAB PO PRN (16:02)
[2017-06-23] MEDS: CEFTRIAXONE SOD INJ 1 GM in DEXTROSE 5% ADD-VANTAGE 50ML 50 ML IV SCH (16:02)
[2017-06-23] MEDS: AZITHROMYCIN IV 500 MG in DEXTROSE 5% 250ML 250 ML IV SCH (17:16)
--- NOTE | 2017-06-23 17:16 | Progress Note ---
Subjective Date of Service: Jun 23, 2017. Subjective Pt evaluation today including: conversation w/ patient overall does not feel that improved chest wall pain exacerbated by coughing willing to try heating pad I have concerns for deconditioning given the longer hospital stay Problem List Medical Problems: (1) Acute bronchitis Status: Acute (2) COPD exacerbation Status: Acute (3) COPD exacerbation Status: Acute (4) Elevated troponin Status: Acute (5) Hyponatremia Status: Acute (6) Hypoxia Status: Acute (7) Influenza A Status: Acute Review of Systems Constitutional: No fever, No chills Respiratory: + cough, + wheezing, + shortness of breath, + dyspnea on exertion Cardiac: + chest pain, No orthopnea, No edema Abdomen: No pain, No nausea, No vomiting, No diarrhea Musculoskeletal: No joint pain, No muscle pain Neurologic: No memory loss, No paralysis Psychiatric: No depression symptoms, No anhedonism, No anxiety Objective Vital Signs Date Time Temp Pulse Resp B/P (MAP) Pulse Ox O2 Delivery O2 Flow Rate FiO2 06/23/17 07:25 36.5 69 20 129/72 (91) 90 Nasal Cannula 2.0 06/23/17 07:02 94 18 90 Nasal Cannula 2.0 06/23/17 04:01 84 18 94 Nasal Cannula 2.0 06/23/17 04:00 Nasal Cannula 2.0 06/23/17 03:27 37.0 68 18 116/56 (76) 94 06/23/17 00:00 37.7 69 18 137/73 (94) 94 06/22/17 23:59 Nasal Cannula 2.0 06/22/17 23:30 87 18 92 Nasal Cannula 2.0 06/22/17 20:42 62 06/22/17 20:33 36.6 62 20 102/49 (66) 97 Nasal Cannula 2.0 06/22/17 20:13 65 18 94 Nasal Cannula 2.0 06/22/17 15:30 37.3 66 24 123/57 (79) 96 Nasal Cannula 2.0 06/22/17 15:30 Nasal Cannula 2.0 06/22/17 15:20 72 18 97 Nasal Cannula 2.0 06/22/17 12:00 36.9 64 24 128/88 (101) 95 Nasal Cannula 2.0 06/22/17 11:10 37.8 74 18 92 2.0 Physical Exam General Appearance: WD/WN, + mild distress, + obese Eyes: normal inspection, sclerae normal Neck: supple, no JVD Respiratory/Chest: + respiratory distress, + decreased breath sounds, + accessory muscle use, + rhonchi Cardiovascular: regular rate, rhythm, no murmur Abdomen: normal bowel sounds, non tender, soft Extremities: no pedal edema, no calf tenderness Neurologic/Psychiatric: alert, oriented x 3 Laboratory Results Last 24 Hours Test 06/22/17 12:04 06/22/17 12:20 06/22/17 15:30 06/22/17 17:54 Bedside Glucose 158 mg/dl 149 mg/dl Troponin I 0.026 ng/ml 0.019 ng/ml Test 06/22/17 20:38 06/23/17 06:53 06/23/17 07:06 Bedside Glucose 151 mg/dl 140 mg/dl White Blood Count 22.90 K/uL Red Blood Count 4.48 M/uL Hemoglobin 13.3 g/dL Hematocrit 40.4 % Mean Corpuscular Volume 90.2 fL Mean Corpuscular Hemoglobin 29.7 pg Mean Corpuscular Hemoglobin Concent 32.9 g/dl Platelet Count 204 K/uL Mean Platelet Volume 10.0 fL RDW Standard Deviation 47.4 fL RDW Coefficient of Variation 14.4 % Assessment and Plan 71-F with acute hypoxic respiratory failure on chronic respiratory failure from COPD with acute influenza A she has a history of paroxysmal atrial fibrillation on long-term anticoagulation, hypothyroidism, hypertension, hyperlipidemia, peripheral neuropathy, LISSETH on nocturnal O2, and dry eye syndrome. She had failed outpt treatment with Augmentin and steroids. Elevated troponin on admission. Acute hypoxemic respiratory failure/asthma and COPD exacerbation/influenza A respiratory illness, Tamiflu for 5 day course for influenza A -Consult pulmonology is following chest CT neg for PE and suggests aspiration, esophageal x ray suggests mild decrease in motility, is on rocephin and azithromycin, consider po clinda cont symbicort 2 puffs BID Elevated troponin/PAF, INitial ECG without ischemic changes, likely demand ischemia. remains in normal sinus rhythm and troponin normalized No RWMA on echocardiogram and preserved EF remains on flecainide, digoxin, statin, Lasix and Toprol-XL plus Xarelto for anticoagulation Hyponatremia-on admission resolved Neuropathy gabapentin continues Hypothyroidism stable on levothyroxine LISSETH-has not tolerated CPAP in the past, is on nocturnal O2 -Continue nocturnal O2, will have post discharge sleep apnea testing DVT Prophylaxis-Xarelto Full Code Continued [facility] stay due to: ambulation difficulties, multiple IV medications needed, other (worsening chest symptoms ) Discharge planning: home
--- NOTE | 2017-06-23 17:45 | Pulmonology Progress Note ---
Pulmonary Progress Note Date of Service Jun 23, 2017. Attending Dr. Dempsey Subjective The patient continued to have cough, sub-costal chest pain accompanied with shortness of breath and wheezing. Objective She is stable but her improvement has been slowly. She continues to have cough with sputum production and difficulty raising her sputum. Assessment & Plan #1 asthma exacerbation. #2 left lower lobe pneumonia. #3 mucoid impaction. #4 sub-costal chest pain secondary to vigorous cough. #5 resolved influenza A. #6 A. fib. Plan: #1 I have changed her steroids to prednisone 50 mg by mouth daily starting tomorrow. #2 continue Symbicort. #3 ceftriaxone and azithromycin. #4 ambulation. #5 I would add 3% hypertonic saline nebulized every 4 hours while awake was available. #6 continue with short acting beta agonist. Thank you, will follow. Data Medications: Current Inpatient Medications Medications (Trade) Dose Ordered Sig/Darlene Route Start Time Stop Time Status Last Admin Dose Admin Acetaminophen (Tylenol Tab) 650 mg Q4H PRN PO 06/15/17 19:15 07/15/17 19:14 06/23/17 16:02 650 MG Magnesium Hydroxide (Milk Of Magnesia Susp) 30 ml Q12H PRN PO 06/15/17 19:15 07/15/17 19:14 Ondansetron HCl (Zofran Inj) 4 mg Q6H PRN IV 06/15/17 19:15 07/15/17 19:14 Atorvastatin Calcium (Lipitor Tab) 20 mg QPM PO 06/15/17 21:00 07/15/17 20:59 06/22/17 20:40 20 MG Cyanocobalamin (Vitamin B-12 Tab) 500 mcg DAILY PO 06/16/17 09:00 07/16/17 08:59 06/23/17 08:07 500 MCG Digoxin (Lanoxin Tab) 0.25 mg QPM PO 06/15/17 21:00 07/15/17 20:59 06/22/17 20:42 0.25 MG Docusate Sodium (coLACE CAP) 100 mg DAILY PRN PO 06/15/17 19:30 07/15/17 19:29 06/17/17 05:22 100 MG Flecainide Acetate (Tambocor Tab) 100 mg Q12 PO 06/15/17 21:00 07/15/17 20:59 06/23/17 08:06 100 MG Furosemide (Lasix Tab) 40 mg DAILY PO 06/16/17 09:00 07/16/17 08:59 06/23/17 08:07 40 MG Latanoprost (Xalatan Oph Soln) 1 drops HS OPB 06/15/17 21:00 07/15/17 20:59 06/22/17 20:40 1 DROPS Levothyroxine Sodium (Synthroid Tab) 75 mcg DAILYBB PO 06/16/17 06:00 07/16/17 06:59 06/23/17 06:00 75 MCG Metoprolol Succinate (Toprol Xl Tab) 100 mg DAILY PO 06/16/17 09:00 07/16/17 08:59 06/23/17 08:08 100 MG Pantoprazole Sodium (Protonix Tab) 40 mg DAILY PO 06/16/17 09:00 07/16/17 08:59 06/23/17 08:07 40 MG Artificial Tears (Artificial Tears) 2 drops QID PRN OPB 06/15/17 19:30 07/15/17 19:29 06/16/17 10:03 2 DROPS Calcium/Vitamin D (Caltrate Plus Tab) 1 tab BID PO 06/15/17 21:00 07/15/17 20:59 06/23/17 08:05 1 TAB Miscellaneous Information (Order Awaiting Action) 1 ea QS N/A 06/16/17 00:00 07/16/17 00:00 Gabapentin (Neurontin Cap) 300 mg HS PO 06/15/17 22:00 07/15/17 21:59 06/22/17 20:40 300 MG Rivaroxaban (Xarelto Tab) 20 mg QAM PO 06/16/17 09:00 07/16/17 08:59 06/23/17 08:06 20 MG Levalbuterol (Xopenex 1.25MG/ 3ML Neb) 1.25 mg Q4R INH 06/16/17 16:00 07/16/17 15:59 06/23/17 14:31 1.25 MG Ipratropium [place] (Atrovent 0.02% 0.5MG/2.5ML Neb) 0.5 mg Q4R INH 06/16/17 16:00 07/16/17 15:59 06/23/17 14:31 0.5 MG Nifedipine (Procardia Xl Tab) 30 mg QAM PO 06/20/17 09:00 07/20/17 08:59 06/23/17 08:07 30 MG Benzonatate (Tessalon Perles Cap) 200 mg TID PO 06/19/17 21:00 07/16/17 13:59 06/23/17 13:48 200 MG Methylprednisolone Sodium Succinate 30 mg/Syringe 0.48 ml @ 1.5 mls/min Q12H IV 06/20/17 20:00 07/16/17 00:00 06/22/17 21:23 1.5 MLS/MIN Codeine Phosphate/ Guaifenesin (Robitussin-AC Sugar Free Syrup) 5 ml Q6H PRN PO 06/21/17 14:15 07/21/17 14:14 06/22/17 22:52 5 ML Budesonide/ Formoterol Fumarate (Symbicort 160/ 4.5 Inh) 2 puffs BID INH 06/21/17 21:00 07/21/17 20:59 06/23/17 08:08 2 PUFFS Glucose (Glucose 40% Gel) 15-30 GRAMS 15 GRAMS... UD PRN PO 06/21/17 14:30 07/21/17 14:29 Glucose (Glucose Chew Tab) 4-8 Tablets 4 Tabl... UD PRN PO 06/21/17 14:30 07/21/17 14:29 Dextrose (Dextrose 50% 50ML Syringe) 25-50ML OF 50% DW IV FOR... UD PRN IV 06/21/17 14:30 07/21/17 14:29 Glucagon (Glucagon Inj) 1 mg UD PRN SQ 06/21/17 14:30 07/21/17 14:29 Insulin Aspart (novoLOG ASPART) SLIDING SCALE G... ACHS SC 06/21/17 16:30 07/21/17 16:29 06/23/17 17:13 4 UNITS Menthol (Nice Chandrakant) 1 chandrakant PRN PRN CHANDRAKANT 06/22/17 05:00 07/22/17 04:59 Nitroglycerin (Nitrostat Tab) 0.4 mg PRN PRN SL 06/22/17 08:00 07/22/17 07:59 06/22/17 08:09 0.4 MG Ioversol (Optiray 320) 100 ml UD PRN IV 06/22/17 08:45 06/26/17 08:44 Polyethylene (Miralax Powder Packet) 17 gm DAILY PO 06/22/17 10:30 07/15/17 19:14 06/23/17 08:08 17 GM Senna (Senokot Tab) 17.2 mg QAM PO 06/22/17 10:30 07/22/17 10:29 06/23/17 08:07 17.2 MG Azithromycin 500 mg/Dextrose 255 ml @ 125 mls/hr Q24H IV 06/22/17 18:00 06/29/17 17:59 06/23/17 17:16 125 MLS/HR Ceftriaxone Sodium 1 gm/ Dextrose 50 ml @ 100 mls/hr Q24H IV 06/22/17 16:15 06/29/17 16:14 06/23/17 16:02 100 MLS/HR Ketorolac Tromethamine (Toradol Inj) 15 mg Q6H PRN IV. 06/22/17 18:00 06/27/17 17:59 06/22/17 18:08 15 MG I & O: 24-Hour Column 06/24/17 08:00 Intake Total 1033 ml Output Total 600 ml Balance 433 ml Vital Signs: Date Time Temp Pulse Resp B/P (MAP) Pulse Ox O2 Delivery O2 Flow Rate FiO2 06/23/17 16:00 Nasal Cannula 2.0 06/23/17 15:40 37.0 71 22 145/69 (94) 92 Nasal Cannula 2.0 06/23/17 14:31 72 18 92 Nasal Cannula 2.0 06/23/17 12:00 Nasal Cannula 2.0 06/23/17 11:20 61 18 94 Nasal Cannula 2.0 06/23/17 11:15 36.6 61 20 110/67 (81) 96 Nasal Cannula 2.0 06/23/17 08:00 Nasal Cannula 2.0 06/23/17 07:25 36.5 69 20 129/72 (91) 90 Nasal Cannula 2.0 06/23/17 07:02 94 18 90 Nasal Cannula 2.0 06/23/17 04:01 84 18 94 Nasal Cannula 2.0 06/23/17 04:00 Nasal Cannula 2.0 06/23/17 03:27 37.0 68 18 116/56 (76) 94 06/23/17 00:00 37.7 69 18 137/73 (94) 94 06/22/17 23:59 Nasal Cannula 2.0 06/22/17 23:30 87 18 92 Nasal Cannula 2.0 06/22/17 20:42 62 06/22/17 20:33 36.6 62 20 102/49 (66) 97 Nasal Cannula 2.0 06/22/17 20:13 65 18 94 Nasal Cannula 2.0 Laboratory Results: Last 24 Hours Test 06/22/17 17:54 06/22/17 20:38 06/23/17 06:53 06/23/17 07:06 Troponin I 0.019 ng/ml Bedside Glucose 151 mg/dl 140 mg/dl White Blood Count 22.90 K/uL Red Blood Count 4.48 M/uL Hemoglobin 13.3 g/dL Hematocrit 40.4 % Mean Corpuscular Volume 90.2 fL Mean Corpuscular Hemoglobin 29.7 pg Mean Corpuscular Hemoglobin Concent 32.9 g/dl Platelet Count 204 K/uL Mean Platelet Volume 10.0 fL Neutrophils (%) (Auto) 91.5 % Lymphocytes (%) (Auto) 4.4 % Monocytes (%) (Auto) 3.6 % Eosinophils (%) (Auto) 0.0 % Basophils (%) (Auto) 0.0 % Neutrophils # (Auto) 20.95 K/uL Lymphocytes # (Auto) 1.00 K/uL Monocytes # (Auto) 0.83 K/uL Eosinophils # (Auto) 0.00 K/uL Basophils # (Auto) 0.00 K/uL RDW Standard Deviation 47.4 fL RDW Coefficient of Variation 14.4 % Immature Granulocyte % (Auto) 0.5 % Immature Granulocyte # (Auto) 0.12 K/uL Sodium Level 132 mmol/L Potassium Level 4.3 mmol/L Chloride Level 96 mmol/L Carbon Dioxide Level 31 mmol/L Anion Gap 6.0 mmol/L Blood Urea Nitrogen 24 mg/dl Creatinine 0.80 mg/dl Est Creatinine Clear Calc Drug Dose 81.4 ml/min Estimated GFR () 87.2 Estimated GFR (Non- 75.2 BUN/Creatinine Ratio 29.6 Random Glucose 145 mg/dl Calcium Level 8.9 mg/dl Phosphorus Level 3.1 mg/dl Magnesium Level 2.6 mg/dl Test 06/23/17 11:15 06/23/17 16:09 Bedside Glucose 116 mg/dl 103 mg/dl
[2017-06-23] MEDS: SODIUM CHLORIDE 7% 4 ML NEB INH SCH (19:41)
[2017-06-23] MEDS: GABAPENTIN 300 MG CAP PO SCH (20:29)
[2017-06-23] MEDS: ATORVASTATIN 20 MG TAB PO SCH (20:29)
[2017-06-23] MEDS: LATANOPROST 0.005% OP SOLN 2.5 ML BTL OPB SCH (20:30)
[2017-06-23] MEDS: DIGOXIN 0.25 MG TAB PO SCH (20:30)
[2017-06-24] VITALS (12 sets, daily range): BP systolic 131–160; BP diastolic 69–81; PULSE 59–89; TEMP 36.4–37.2; O2SAT 90–98
[2017-06-24] MEDS: LEVALBUTEROL 1.25MG/3ML NEB INH SCH ×4 (03:28→15:18)
[2017-06-24] MEDS: IPRATROPIUM BROMIDE NEB SOLN 0.02% 2.5 ML VIAL INH SCH ×6 (03:28→23:13)
[2017-06-24] MEDS: LEVOTHYROXINE 75 MCG TAB PO SCH (05:51)
[2017-06-24] MEDS: SODIUM CHLORIDE 7% 4 ML NEB INH SCH ×4 (07:07→19:25)
[2017-06-24] MEDS: BUDESONIDE/FORMOTEROL FUMARATE 160/4.5 60 PUFFS/INHALER INH SCH (07:16)
[2017-06-24] MEDS: FUROSEMIDE 40 MG TAB PO SCH (07:18)
[2017-06-24] MEDS: BENZONATATE 100MG CAP PO SCH ×2 (07:18→13:54)
[2017-06-24] MEDS: CALCIUM 600MG + VIT D 400 IU TAB PO SCH (07:18)
[2017-06-24] MEDS: NIFEdipine 30 MG CR TAB PO SCH (07:18)
[2017-06-24] MEDS: SENNA 8.6 MG TAB PO SCH (07:18)
[2017-06-24] MEDS: CYANOCOBALAMIN 500 MCG TAB (VIT B-12) PO SCH (07:18)
[2017-06-24] MEDS: METOPROLOL SUCC 50MG EXT REL TAB PO SCH (07:19)
[2017-06-24] MEDS: FLECAINIDE ACETATE 100 MG TAB PO SCH ×2 (07:19→21:15)
[2017-06-24] MEDS: PANTOprazole SOD 40 MG TAB PO SCH (07:19)
[2017-06-24] MEDS: RIVAROXABAN 20 MG TAB PO SCH (07:20)
[2017-06-24] MEDS: POLYETHYLENE (MIRALAX) 17 GM PACK PO SCH (07:20)
[2017-06-24] MEDS: METHYLPREDNISOLONE IV 30 MG in SYRINGE 0 ML IV SCH (07:36)
[2017-06-24] MEDS: INSULIN ASPART 100 UNITS/ML 3 ML PEN SC SCH ×4 (09:13→21:17)
--- NOTE | 2017-06-24 12:52 | Pulmonology Progress Note ---
Pulmonary Progress Note Date of Service Jun 24, 2017. Attending Dr. Dempsey Subjective The patient continued to have cough with blood-tinged sputum. She denies any chest pain. She feels a raspatory status is better but not completely. She does not have any chest pain today. No events overnight. Objective She is stable but her improvement has been slowly. She continues to have cough with sputum production and difficulty raising her sputum. 06/24/2017 physical exam revealed stable vital signs, she remains on oxygen, she had minimal postnasal drip, heart examination S1-S2 regular rate and rhythm , occasionally she is in A. fib, bilateral scattered rhonchi, no wheezing. Abdomen is benign no edema. Incentive spirometry up to 500 only. Assessment & Plan #1 asthma exacerbation. #2 left lower lobe pneumonia. #3 mucoid impaction. #4 sub-costal chest pain secondary to vigorous cough. #5 resolved influenza A. #6 A. fib. Plan: #1 I have changed her steroids to prednisone 50 mg by mouth daily . #2 continue Symbicort. #3 ceftriaxone and azithromycin. #4 ambulation. #5 I would add 3% hypertonic saline nebulized every 4 hours while awake was available. #6 continue with short acting beta agonist. #7 I instructed patient on the use of incentive spirometry and Acapella valve. #8 obtain IgE level to rule out ABPA. #9 no evidence of gross hemoptysis. Thank you, will follow. Data Medications: Current Inpatient Medications Medications (Trade) Dose Ordered Sig/Darlene Route Start Time Stop Time Status Last Admin Dose Admin Acetaminophen (Tylenol Tab) 650 mg Q4H PRN PO 06/15/17 19:15 07/15/17 19:14 06/23/17 16:02 650 MG Magnesium Hydroxide (Milk Of Magnesia Susp) 30 ml Q12H PRN PO 06/15/17 19:15 07/15/17 19:14 Ondansetron HCl (Zofran Inj) 4 mg Q6H PRN IV 06/15/17 19:15 07/15/17 19:14 Atorvastatin Calcium (Lipitor Tab) 20 mg QPM PO 06/15/17 21:00 07/15/17 20:59 06/23/17 20:29 20 MG Cyanocobalamin (Vitamin B-12 Tab) 500 mcg DAILY PO 06/16/17 09:00 07/16/17 08:59 06/24/17 07:18 500 MCG Digoxin (Lanoxin Tab) 0.25 mg QPM PO 06/15/17 21:00 07/15/17 20:59 06/23/17 20:30 0.25 MG Docusate Sodium (coLACE CAP) 100 mg DAILY PRN PO 06/15/17 19:30 07/15/17 19:29 06/17/17 05:22 100 MG Flecainide Acetate (Tambocor Tab) 100 mg Q12 PO 06/15/17 21:00 07/15/17 20:59 06/24/17 07:19 100 MG Furosemide (Lasix Tab) 40 mg DAILY PO 06/16/17 09:00 07/16/17 08:59 06/24/17 07:18 40 MG Latanoprost (Xalatan Oph Soln) 1 drops HS OPB 06/15/17 21:00 07/15/17 20:59 06/23/17 20:30 1 DROPS Levothyroxine Sodium (Synthroid Tab) 75 mcg DAILYBB PO 06/16/17 06:00 07/16/17 06:59 06/24/17 05:51 75 MCG Metoprolol Succinate (Toprol Xl Tab) 100 mg DAILY PO 06/16/17 09:00 07/16/17 08:59 06/24/17 07:19 100 MG Pantoprazole Sodium (Protonix Tab) 40 mg DAILY PO 06/16/17 09:00 07/16/17 08:59 06/24/17 07:19 40 MG Artificial Tears (Artificial Tears) 2 drops QID PRN OPB 06/15/17 19:30 07/15/17 19:29 06/16/17 10:03 2 DROPS Calcium/Vitamin D (Caltrate Plus Tab) 1 tab BID PO 06/15/17 21:00 07/15/17 20:59 06/24/17 07:18 1 TAB Miscellaneous Information (Order Awaiting Action) 1 ea QS N/A 06/16/17 00:00 07/16/17 00:00 Gabapentin (Neurontin Cap) 300 mg HS PO 06/15/17 22:00 07/15/17 21:59 06/23/17 20:29 300 MG Rivaroxaban (Xarelto Tab) 20 mg QAM PO 06/16/17 09:00 07/16/17 08:59 06/24/17 07:20 20 MG Levalbuterol (Xopenex 1.25MG/ 3ML Neb) 1.25 mg Q4R INH 06/16/17 16:00 07/16/17 15:59 06/24/17 11:14 1.25 MG Ipratropium [place] (Atrovent 0.02% 0.5MG/2.5ML Neb) 0.5 mg Q4R INH 06/16/17 16:00 07/16/17 15:59 06/24/17 11:14 0.5 MG Nifedipine (Procardia Xl Tab) 30 mg QAM PO 06/20/17 09:00 07/20/17 08:59 06/24/17 07:18 30 MG Benzonatate (Tessalon Perles Cap) 200 mg TID PO 06/19/17 21:00 07/16/17 13:59 06/24/17 07:18 200 MG Codeine Phosphate/ Guaifenesin (Robitussin-AC Sugar Free Syrup) 5 ml Q6H PRN PO 06/21/17 14:15 07/21/17 14:14 06/22/17 22:52 5 ML Budesonide/ Formoterol Fumarate (Symbicort 160/ 4.5 Inh) 2 puffs BID INH 06/21/17 21:00 07/21/17 20:59 06/24/17 07:16 2 PUFFS Glucose (Glucose 40% Gel) 15-30 GRAMS 15 GRAMS... UD PRN PO 06/21/17 14:30 07/21/17 14:29 Glucose (Glucose Chew Tab) 4-8 Tablets 4 Tabl... UD PRN PO 06/21/17 14:30 07/21/17 14:29 Dextrose (Dextrose 50% 50ML Syringe) 25-50ML OF 50% DW IV FOR... UD PRN IV 06/21/17 14:30 07/21/17 14:29 Glucagon (Glucagon Inj) 1 mg UD PRN SQ 06/21/17 14:30 07/21/17 14:29 Insulin Aspart (novoLOG ASPART) SLIDING SCALE G... ACHS SC 06/21/17 16:30 07/21/17 16:29 06/24/17 09:13 6 UNITS Menthol (Nice Chandrakant) 1 chandrakant PRN PRN CHANDRAKANT 06/22/17 05:00 07/22/17 04:59 Nitroglycerin (Nitrostat Tab) 0.4 mg PRN PRN SL 06/22/17 08:00 07/22/17 07:59 06/22/17 08:09 0.4 MG Ioversol (Optiray 320) 100 ml UD PRN IV 06/22/17 08:45 06/26/17 08:44 Polyethylene (Miralax Powder Packet) 17 gm DAILY PO 06/22/17 10:30 07/15/17 19:14 06/24/17 07:20 17 GM Senna (Senokot Tab) 17.2 mg QAM PO 06/22/17 10:30 07/22/17 10:29 06/24/17 07:18 17.2 MG Azithromycin 500 mg/Dextrose 255 ml @ 125 mls/hr Q24H IV 06/22/17 18:00 06/29/17 17:59 06/23/17 17:16 125 MLS/HR Ceftriaxone Sodium 1 gm/ Dextrose 50 ml @ 100 mls/hr Q24H IV 06/22/17 16:15 06/29/17 16:14 06/23/17 16:02 100 MLS/HR Ketorolac Tromethamine (Toradol Inj) 15 mg Q6H PRN IV. 06/22/17 18:00 06/27/17 17:59 06/22/17 18:08 15 MG Prednisone (PredniSONE TAB) 50 mg DAILY PO 06/24/17 09:00 07/24/17 08:59 06/24/17 07:19 50 MG Sodium Chloride (Sodium Chloride 7% Neb Solution) 4 ml QIDR INH 06/23/17 20:00 07/23/17 19:59 06/24/17 11:13 4 ML Vital Signs: Date Time Temp Pulse Resp B/P (MAP) Pulse Ox O2 Delivery O2 Flow Rate FiO2 06/24/17 12:00 Nasal Cannula 2.0 06/24/17 11:15 77 18 95 Nasal Cannula 2.0 06/24/17 11:03 36.4 66 20 138/71 (93) 91 Nasal Cannula 3.0 06/24/17 08:00 Nasal Cannula 2.0 06/24/17 07:37 37.2 80 20 144/74 (97) 92 Nasal Cannula 06/24/17 07:08 71 18 95 Nasal Cannula 2.0 06/24/17 04:00 Nasal Cannula 2.0 06/24/17 03:32 36.8 68 18 144/81 (102) 93 2.0 06/24/17 03:30 89 18 90 Nasal Cannula 2.0 06/23/17 23:59 Nasal Cannula 2.0 06/23/17 23:47 36.8 68 18 129/71 (90) 93 2.0 06/23/17 23:43 68 18 93 Nasal Cannula 2.0 06/23/17 20:30 70 06/23/17 20:14 36.6 61 20 112/64 (80) 93 Nasal Cannula 2.0 06/23/17 20:00 Nasal Cannula 2.0 06/23/17 19:46 86 18 95 Nasal Cannula 2.0 06/23/17 16:00 Nasal Cannula 2.0 06/23/17 15:40 37.0 71 22 145/69 (94) 92 Nasal Cannula 2.0 06/23/17 14:31 72 18 92 Nasal Cannula 2.0 Laboratory Results: Last 24 Hours Test 06/23/17 16:09 06/23/17 20:00 06/24/17 06:48 06/24/17 11:02 Bedside Glucose 103 mg/dl 166 mg/dl 181 mg/dl 117 mg/dl Test 06/24/17 12:11
[2017-06-24] MEDS: GUAIFENESIN/CODEINE 100MG/10MG 5ML UDC PO PRN (14:04)
[2017-06-24] MEDS: CEFTRIAXONE SOD INJ 1 GM in DEXTROSE 5% ADD-VANTAGE 50ML 50 ML IV SCH (16:14)
--- NOTE | 2017-06-24 16:34 | Progress Note ---
Subjective Date of Service: Jun 24, 2017. Subjective pt thinks she is slowly getting better with regard to her breathing she is still having violent coughing and not bringing up much mucus but she is having some success with her flutter valve Problem List Medical Problems: (1) Acute bronchitis Status: Acute (2) COPD exacerbation Status: Acute (3) COPD exacerbation Status: Acute (4) Elevated troponin Status: Acute (5) Hyponatremia Status: Acute (6) Hypoxia Status: Acute (7) Influenza A Status: Acute Review of Systems Constitutional: + weakness, No fever, No chills Respiratory: + cough, + sputum, + wheezing, + shortness of breath, + dyspnea on exertion, + dyspnea at rest Cardiac: + chest pain (seems musculoskeletal), No edema Abdomen: No pain, No nausea, No vomiting, No diarrhea Female : No dysuria, No urinary frequency, No hematuria Neurologic: No memory loss, No weakness Objective Vital Signs Date Time Temp Pulse Resp B/P (MAP) Pulse Ox O2 Delivery O2 Flow Rate FiO2 06/24/17 15:52 37.0 70 20 131/69 (89) 93 Nasal Cannula 2.0 06/24/17 15:18 78 18 95 Nasal Cannula 2.0 06/24/17 12:00 Nasal Cannula 2.0 06/24/17 11:15 77 18 95 Nasal Cannula 2.0 06/24/17 11:03 36.4 66 20 138/71 (93) 91 Nasal Cannula 3.0 06/24/17 08:00 Nasal Cannula 2.0 06/24/17 07:37 37.2 80 20 144/74 (97) 92 Nasal Cannula 06/24/17 07:08 71 18 95 Nasal Cannula 2.0 06/24/17 04:00 Nasal Cannula 2.0 06/24/17 03:32 36.8 68 18 144/81 (102) 93 2.0 06/24/17 03:30 89 18 90 Nasal Cannula 2.0 06/23/17 23:59 Nasal Cannula 2.0 06/23/17 23:47 36.8 68 18 129/71 (90) 93 2.0 06/23/17 23:43 68 18 93 Nasal Cannula 2.0 06/23/17 20:30 70 06/23/17 20:14 36.6 61 20 112/64 (80) 93 Nasal Cannula 2.0 06/23/17 20:00 Nasal Cannula 2.0 06/23/17 19:46 86 18 95 Nasal Cannula 2.0 Physical Exam General Appearance: WD/WN, + moderate distress Eyes: normal inspection, PERRL, EOMI, sclerae normal Neck: supple, no JVD Respiratory/Chest: + respiratory distress, + decreased breath sounds, + accessory muscle use, + wheezing Cardiovascular: regular rate, rhythm, no murmur Abdomen: normal bowel sounds, non tender, soft Neurologic/Psychiatric: alert, oriented x 3 Laboratory Results Last 24 Hours Test 06/23/17 20:00 06/24/17 06:48 06/24/17 11:02 06/24/17 12:11 Bedside Glucose 166 mg/dl 181 mg/dl 117 mg/dl Assessment and Plan 71-F with acute hypoxic respiratory failure on chronic respiratory failure from COPD with acute influenza A she has a history of paroxysmal atrial fibrillation on long-term anticoagulation, hypothyroidism, hypertension, hyperlipidemia, peripheral neuropathy, LISSETH on nocturnal O2, and dry eye syndrome. She had failed outpt treatment with Augmentin and steroids. Elevated troponin on admission. Acute hypoxemic respiratory failure/asthma and COPD exacerbation/influenza A respiratory illness, Tamiflu for 5 day course for influenza A -Consult pulmonology is following, is not considering a bronchoscopy, added saline nebulizer chest CT neg for PE and suggests aspiration, esophageal x ray suggests mild decrease in motility, is on rocephin and azithromycin, consider po clinda cont symbicort 2 puffs BID Elevated troponin/PAF, INitial ECG without ischemic changes, likely demand ischemia. remains in normal sinus rhythm and troponin normalized No RWMA on echocardiogram and preserved EF, sounds regular on exam remains on flecainide, digoxin, statin, Lasix and Toprol-XL plus Xarelto for anticoagulation Hyponatremia-on admission resolved Neuropathy gabapentin continues to have no complaints of limb discomfort Hypothyroidism levothyroxine at home doses LISSETH-has not tolerated CPAP in the past, reamins on nocturnal O2, once recovers will recommend outpt sleep apnea testing again DVT Prophylaxis-Xarelto Full Code Continued [facility] stay due to: ambulation difficulties, multiple IV medications needed, other (worsening chest symptoms ) Discharge planning: home
[2017-06-24] MEDS: AZITHROMYCIN IV 500 MG in DEXTROSE 5% 250ML 250 ML IV SCH (17:32)
[2017-06-24] MEDS: LEVALBUTEROL 1.25MG/0.5ML NEB INH SCH ×2 (19:24→23:13)
[2017-06-24] MEDS: ATORVASTATIN 20 MG TAB PO SCH (21:13)
[2017-06-24] MEDS: LATANOPROST 0.005% OP SOLN 2.5 ML BTL OPB SCH (21:15)
[2017-06-24] MEDS: DIGOXIN 0.25 MG TAB PO SCH (21:16)
[2017-06-24] MEDS: GABAPENTIN 300 MG CAP PO SCH (21:17)
[2017-06-25] VITALS (9 sets, daily range): BP systolic 129–132; BP diastolic 71–73; PULSE 61–70; TEMP 36.7–36.8; O2SAT 90–95
[2017-06-25] MEDS: LEVALBUTEROL 1.25MG/0.5ML NEB INH SCH ×6 (03:19→23:16)
[2017-06-25] MEDS: IPRATROPIUM BROMIDE NEB SOLN 0.02% 2.5 ML VIAL INH SCH ×6 (03:19→23:16)
[2017-06-25] MEDS: LEVOTHYROXINE 75 MCG TAB PO SCH (06:14)
[2017-06-25] MEDS: SODIUM CHLORIDE 7% 4 ML NEB INH SCH ×4 (07:02→19:35)
[2017-06-25] MEDS: METOPROLOL SUCC 50MG EXT REL TAB PO SCH (07:41)
[2017-06-25] MEDS: CYANOCOBALAMIN 500 MCG TAB (VIT B-12) PO SCH (07:42)
[2017-06-25] MEDS: CALCIUM 600MG + VIT D 400 IU TAB PO SCH ×2 (07:42→20:17)
[2017-06-25] MEDS: SENNA 8.6 MG TAB PO SCH (07:42)
[2017-06-25] MEDS: RIVAROXABAN 20 MG TAB PO SCH (07:43)
[2017-06-25] MEDS: FUROSEMIDE 40 MG TAB PO SCH (07:43)
[2017-06-25] MEDS: PANTOprazole SOD 40 MG TAB PO SCH (07:43)
[2017-06-25] MEDS: FLECAINIDE ACETATE 100 MG TAB PO SCH ×2 (07:43→20:18)
[2017-06-25] MEDS: POLYETHYLENE (MIRALAX) 17 GM PACK PO SCH (07:44)
[2017-06-25] MEDS: BENZONATATE 100MG CAP PO SCH ×3 (07:44→20:18)
[2017-06-25] MEDS: BUDESONIDE/FORMOTEROL FUMARATE 160/4.5 60 PUFFS/INHALER INH SCH ×2 (07:46→20:14)
[2017-06-25] MEDS: NIFEdipine 30 MG CR TAB PO SCH (07:50)
[2017-06-25] MEDS: INSULIN ASPART 100 UNITS/ML 3 ML PEN SC SCH ×4 (08:31→20:21)
[2017-06-25] MEDS: GUAIFENESIN/CODEINE 100MG/10MG 5ML UDC PO PRN ×2 (09:42→21:02)
[2017-06-25] MEDS: CEFTRIAXONE SOD INJ 1 GM in DEXTROSE 5% ADD-VANTAGE 50ML 50 ML IV SCH (16:08)
--- NOTE | 2017-06-25 17:16 | Pulmonology Progress Note ---
Pulmonary Progress Note Date of Service Jun 25, 2017. Attending Dr. Dempsey Subjective The patient is feeling better, her cough is less, no hemoptysis or blood-tinged sputum, she was ambulatory, she feels like she is ready for rehabilitation. She denies any chest pain, she did have earlier under her rib cage pain secondary to cough. Objective She is stable but her improvement has been slowly. She continues to have cough with sputum production and difficulty raising her sputum. 06/24/2017 physical exam revealed stable vital signs, she remains on oxygen, she had minimal postnasal drip, heart examination S1-S2 regular rate and rhythm , occasionally she is in A. fib, bilateral scattered rhonchi, no wheezing. Abdomen is benign no edema. Incentive spirometry up to 500 only. 06/25/2017, she has stable vital signs, O2 saturation 97% on 2 L, heart examination S1-S2 regular rate and rhythm, lungs are distant breath sounds bilaterally, abdomen is benign, no edema. Assessment & Plan #1 asthma exacerbation. #2 left lower lobe pneumonia. Resolved. #3 mucoid impaction. Improving with hypertonic saline and bronchodilators. #4 sub-costal chest pain secondary to vigorous cough. Resolved. #5 resolved influenza A. #6 A. fib. Plan: #1 I have changed her steroids to prednisone 50 mg by mouth daily . Continue with the prednisone for 4 days and then taper by 10 mg every third day. #2 continue Symbicort. 2 puffs twice a day. #3 ceftriaxone and azithromycin. Can be changed to cefpodoxime twice a day. #4 ambulation. And transfer to rehabilitation when possible. #5 I would add 3% hypertonic saline nebulized every 4 hours while awake was available. #6 continue with short acting beta agonist. #7 I instructed patient on the use of incentive spirometry and Acapella valve. #8 obtain IgE level to rule out ABPA. #9 no evidence of gross hemoptysis. #10 follow-up with Dr. Saavedra as an outpatient. Thank you, will follow. Data Medications: Current Inpatient Medications Medications (Trade) Dose Ordered Sig/Darlene Route Start Time Stop Time Status Last Admin Dose Admin Acetaminophen (Tylenol Tab) 650 mg Q4H PRN PO 06/15/17 19:15 07/15/17 19:14 06/23/17 16:02 650 MG Magnesium Hydroxide (Milk Of Magnesia Susp) 30 ml Q12H PRN PO 06/15/17 19:15 07/15/17 19:14 Ondansetron HCl (Zofran Inj) 4 mg Q6H PRN IV 06/15/17 19:15 07/15/17 19:14 Atorvastatin Calcium (Lipitor Tab) 20 mg QPM PO 06/15/17 21:00 07/15/17 20:59 06/24/17 21:13 20 MG Cyanocobalamin (Vitamin B-12 Tab) 500 mcg DAILY PO 06/16/17 09:00 07/16/17 08:59 06/25/17 07:42 500 MCG Digoxin (Lanoxin Tab) 0.25 mg QPM PO 06/15/17 21:00 07/15/17 20:59 06/24/17 21:16 0.25 MG Docusate Sodium (coLACE CAP) 100 mg DAILY PRN PO 06/15/17 19:30 07/15/17 19:29 06/17/17 05:22 100 MG Flecainide Acetate (Tambocor Tab) 100 mg Q12 PO 06/15/17 21:00 07/15/17 20:59 06/25/17 07:43 100 MG Furosemide (Lasix Tab) 40 mg DAILY PO 06/16/17 09:00 07/16/17 08:59 06/25/17 07:43 40 MG Latanoprost (Xalatan Oph Soln) 1 drops HS OPB 06/15/17 21:00 07/15/17 20:59 06/24/17 21:15 1 DROPS Levothyroxine Sodium (Synthroid Tab) 75 mcg DAILYBB PO 06/16/17 06:00 07/16/17 06:59 06/25/17 06:14 75 MCG Metoprolol Succinate (Toprol Xl Tab) 100 mg DAILY PO 06/16/17 09:00 07/16/17 08:59 06/25/17 07:41 100 MG Pantoprazole Sodium (Protonix Tab) 40 mg DAILY PO 06/16/17 09:00 07/16/17 08:59 06/25/17 07:43 40 MG Artificial Tears (Artificial Tears) 2 drops QID PRN OPB 06/15/17 19:30 07/15/17 19:29 06/16/17 10:03 2 DROPS Calcium/Vitamin D (Caltrate Plus Tab) 1 tab BID PO 06/15/17 21:00 07/15/17 20:59 06/25/17 07:42 1 TAB Miscellaneous Information (Order Awaiting Action) 1 ea QS N/A 06/16/17 00:00 07/16/17 00:00 Gabapentin (Neurontin Cap) 300 mg HS PO 06/15/17 22:00 07/15/17 21:59 06/24/17 21:17 300 MG Rivaroxaban (Xarelto Tab) 20 mg QAM PO 06/16/17 09:00 07/16/17 08:59 06/25/17 07:43 20 MG Ipratropium [place] (Atrovent 0.02% 0.5MG/2.5ML Neb) 0.5 mg Q4R INH 06/16/17 16:00 07/16/17 15:59 06/25/17 15:05 0.5 MG Nifedipine (Procardia Xl Tab) 30 mg QAM PO 06/20/17 09:00 07/20/17 08:59 06/25/17 07:50 30 MG Benzonatate (Tessalon Perles Cap) 200 mg TID PO 06/19/17 21:00 07/16/17 13:59 06/25/17 13:28 200 MG Codeine Phosphate/ Guaifenesin (Robitussin-AC Sugar Free Syrup) 5 ml Q6H PRN PO 06/21/17 14:15 07/21/17 14:14 06/25/17 09:42 5 ML Budesonide/ Formoterol Fumarate (Symbicort 160/ 4.5 Inh) 2 puffs BID INH 06/21/17 21:00 07/21/17 20:59 06/25/17 07:46 2 PUFFS Glucose (Glucose 40% Gel) 15-30 GRAMS 15 GRAMS... UD PRN PO 06/21/17 14:30 07/21/17 14:29 Glucose (Glucose Chew Tab) 4-8 Tablets 4 Tabl... UD PRN PO 06/21/17 14:30 07/21/17 14:29 Dextrose (Dextrose 50% 50ML Syringe) 25-50ML OF 50% DW IV FOR... UD PRN IV 1/22/18 14:30 07/21/17 14:29 Glucagon (Glucagon Inj) 1 mg UD PRN SQ 06/21/17 14:30 07/21/17 14:29 Insulin Aspart (novoLOG ASPART) SLIDING SCALE G... ACHS SC 06/21/17 16:30 07/21/17 16:29 06/25/17 12:43 6 UNITS Menthol (Nice Chandrakant) 1 chandrakant PRN PRN CHANDRAKANT 06/22/17 05:00 07/22/17 04:59 Nitroglycerin (Nitrostat Tab) 0.4 mg PRN PRN SL 06/22/17 08:00 07/22/17 07:59 06/22/17 08:09 0.4 MG Ioversol (Optiray 320) 100 ml UD PRN IV 06/22/17 08:45 06/26/17 08:44 Polyethylene (Miralax Powder Packet) 17 gm DAILY PO 06/22/17 10:30 07/15/17 19:14 06/25/17 07:44 17 GM Senna (Senokot Tab) 17.2 mg QAM PO 06/22/17 10:30 07/22/17 10:29 06/25/17 07:42 17.2 MG Azithromycin 500 mg/Dextrose 255 ml @ 125 mls/hr Q24H IV 06/22/17 18:00 06/29/17 17:59 06/24/17 17:32 125 MLS/HR Ceftriaxone Sodium 1 gm/ Dextrose 50 ml @ 100 mls/hr Q24H IV 06/22/17 16:15 06/29/17 16:14 06/25/17 16:08 100 MLS/HR Ketorolac Tromethamine (Toradol Inj) 15 mg Q6H PRN IV. 06/22/17 18:00 06/27/17 17:59 06/22/17 18:08 15 MG Prednisone (PredniSONE TAB) 50 mg DAILY PO 06/24/17 09:00 07/24/17 08:59 06/25/17 07:44 50 MG Sodium Chloride (Sodium Chloride 7% Neb Solution) 4 ml QIDR INH 06/23/17 20:00 07/23/17 19:59 06/25/17 15:05 4 ML Levalbuterol (Xopenex 1.25MG/ 0.5ML Neb) 1.25 mg Q4R INH 06/24/17 16:00 07/24/17 15:59 06/25/17 15:05 1.25 MG I & O: 24-Hour Column 06/26/17 08:00 Intake Total 550 ml Balance 550 ml Vital Signs: Date Time Temp Pulse Resp B/P (MAP) Pulse Ox O2 Delivery O2 Flow Rate FiO2 06/25/17 16:00 Nasal Cannula 2.0 06/25/17 15:07 61 18 95 Nasal Cannula 2.0 06/25/17 14:49 36.8 62 20 129/73 (91) 92 2.0 06/25/17 11:26 64 18 93 Nasal Cannula 2.0 06/25/17 08:00 Nasal Cannula 2.0 06/25/17 07:31 36.7 62 20 132/71 (91) 92 06/25/17 07:00 70 18 90 Nasal Cannula 2.0 06/25/17 03:19 69 18 92 Nasal Cannula 2.0 06/25/17 00:00 Nasal Cannula 2.0 Humidified Oxygen 06/24/17 23:13 68 18 96 Nasal Cannula 2.0 06/24/17 22:49 36.5 78 18 160/76 (104) 91 Nasal Cannula 2.0 06/24/17 21:16 64 06/24/17 20:46 36.6 63 18 157/70 (99) 91 Nasal Cannula 2.0 06/24/17 20:00 Nasal Cannula 2.0 Humidified Oxygen 06/24/17 19:25 37.0 70 20 93 2.0 06/24/17 19:25 59 18 98 Nasal Cannula 2.0 Laboratory Results: Last 24 Hours Test 06/24/17 21:04 06/25/17 07:11 06/25/17 11:31 Bedside Glucose 123 mg/dl 108 mg/dl 160 mg/dl
[2017-06-25] MEDS: AZITHROMYCIN IV 500 MG in DEXTROSE 5% 250ML 250 ML IV SCH (17:50)
--- NOTE | 2017-06-25 18:13 | Progress Note ---
Subjective Date of Service: Jun 25, 2017. Subjective Patient feels she slowly improving but not yet quite at the point where she is able to go home she feels weak and tired today and deconditioned she's been almost 1 week she will participate in physical therapy and occupational therapy Problem List Medical Problems: (1) Acute bronchitis Status: Acute (2) COPD exacerbation Status: Acute (3) COPD exacerbation Status: Acute (4) Elevated troponin Status: Acute (5) Hyponatremia Status: Acute (6) Hypoxia Status: Acute (7) Influenza A Status: Acute Review of Systems Constitutional: + weakness, + fatigue, No fever, No chills Respiratory: + cough, + shortness of breath, + dyspnea on exertion Cardiac: No chest pain, No edema Abdomen: No pain, No nausea, No vomiting, No diarrhea Female : No dysuria, No hematuria Neurologic: No memory loss, No paralysis Objective Vital Signs Date Time Temp Pulse Resp B/P (MAP) Pulse Ox O2 Delivery O2 Flow Rate FiO2 06/25/17 16:00 Nasal Cannula 2.0 06/25/17 15:07 61 18 95 Nasal Cannula 2.0 06/25/17 14:49 36.8 62 20 129/73 (91) 92 2.0 06/25/17 11:26 64 18 93 Nasal Cannula 2.0 06/25/17 08:00 Nasal Cannula 2.0 06/25/17 07:31 36.7 62 20 132/71 (91) 92 06/25/17 07:00 70 18 90 Nasal Cannula 2.0 06/25/17 03:19 69 18 92 Nasal Cannula 2.0 06/25/17 00:00 Nasal Cannula 2.0 Humidified Oxygen 06/24/17 23:13 68 18 96 Nasal Cannula 2.0 06/24/17 22:49 36.5 78 18 160/76 (104) 91 Nasal Cannula 2.0 06/24/17 21:16 64 06/24/17 20:46 36.6 63 18 157/70 (99) 91 Nasal Cannula 2.0 06/24/17 20:00 Nasal Cannula 2.0 Humidified Oxygen 06/24/17 19:25 37.0 70 20 93 2.0 06/24/17 19:25 59 18 98 Nasal Cannula 2.0 Physical Exam General Appearance: WD/WN, + mild distress, + moderate distress Neck: supple, no JVD Respiratory/Chest: + decreased breath sounds, + accessory muscle use, + rhonchi Cardiovascular: regular rate, rhythm, no murmur Abdomen: normal bowel sounds, non tender, soft Extremities: no pedal edema, no calf tenderness Neurologic/Psychiatric: alert, oriented x 3 Laboratory Results Last 24 Hours Test 06/24/17 21:04 06/25/17 07:11 06/25/17 11:31 Bedside Glucose 123 mg/dl 108 mg/dl 160 mg/dl Assessment and Plan 71-F with acute hypoxic respiratory failure on chronic respiratory failure from COPD with acute influenza A she has a history of paroxysmal atrial fibrillation on long-term anticoagulation, hypothyroidism, hypertension, hyperlipidemia, peripheral neuropathy, LISSETH on nocturnal O2, and dry eye syndrome. She had failed outpt treatment with Augmentin and steroids. Elevated troponin on admission. Acute hypoxemic respiratory failure/asthma and COPD exacerbation/influenza A respiratory illness, slow to improve, but daily is getting better Tamiflu for 5 day course for influenza A -Consult pulmonology is following, is not considering a bronchoscopy, added saline nebulizer slow improvement chest CT neg for PE and suggests aspiration, esophageal x ray suggests mild decrease in motility, is on rocephin and azithromycin, will clindamycin cont symbicort 2 puffs BID Elevated troponin/PAF, INitial ECG without ischemic changes, likely demand ischemia. remains in normal sinus rhythm and troponin normalized No RWMA on echocardiogram and preserved EF,continues to sound regular on exam continues on flecainide, digoxin, statin, Lasix and Toprol-XL plus Xarelto for anticoagulation Hyponatremia-on admission resolved Neuropathy gabapentin no neuropathic pain Hypothyroidism levothyroxine at home doses LISSETH-has not tolerated CPAP in the past, reamins on nocturnal O2, once recovers will recommend outpt sleep apnea testing again DVT Prophylaxis-Xarelto Full Code will need PT/Ot due to prolongued stay Continued [facility] stay due to: ambulation difficulties, multiple IV medications needed, other (worsening chest symptoms ) Discharge planning: home
[2017-06-25] MEDS: ATORVASTATIN 20 MG TAB PO SCH (20:16)
[2017-06-25] MEDS: DIGOXIN 0.25 MG TAB PO SCH (20:17)
[2017-06-25] MEDS: LATANOPROST 0.005% OP SOLN 2.5 ML BTL OPB SCH (20:18)
[2017-06-25] MEDS: GABAPENTIN 300 MG CAP PO SCH (20:19)
[2017-06-25] MEDS: CLINDAMYCIN HCL 150 MG CAP PO SCH (23:44)
[2017-06-26] VITALS (16 sets, daily range): BP systolic 121–161; BP diastolic 74–88; PULSE 59–127; TEMP 36.7–36.9; O2SAT 90–95
[2017-06-26] MEDS: IPRATROPIUM BROMIDE NEB SOLN 0.02% 2.5 ML VIAL INH SCH ×6 (03:20→23:28)
[2017-06-26] MEDS: LEVALBUTEROL 1.25MG/0.5ML NEB INH SCH ×6 (03:20→23:28)
[2017-06-26] MEDS: CLINDAMYCIN HCL 150 MG CAP PO SCH ×4 (06:19→22:29)
[2017-06-26] MEDS: LEVOTHYROXINE 75 MCG TAB PO SCH (06:20)
[2017-06-26] MEDS: SODIUM CHLORIDE 7% 4 ML NEB INH SCH ×4 (07:04→19:17)
[2017-06-26] MEDS: ACETAMINOPHEN 325 MG TAB PO PRN (07:58)
[2017-06-26] MEDS: NIFEdipine 30 MG CR TAB PO SCH (07:59)
[2017-06-26] MEDS: RIVAROXABAN 20 MG TAB PO SCH (07:59)
[2017-06-26] MEDS: PANTOprazole SOD 40 MG TAB PO SCH (08:00)
[2017-06-26] MEDS: METOPROLOL SUCC 50MG EXT REL TAB PO SCH (08:00)
[2017-06-26] MEDS: FUROSEMIDE 40 MG TAB PO SCH (08:00)
[2017-06-26] MEDS: SENNA 8.6 MG TAB PO SCH (08:01)
[2017-06-26] MEDS: FLECAINIDE ACETATE 100 MG TAB PO SCH ×2 (08:02→20:27)
[2017-06-26] MEDS: POLYETHYLENE (MIRALAX) 17 GM PACK PO SCH (08:02)
[2017-06-26] MEDS: BENZONATATE 100MG CAP PO SCH ×3 (08:02→20:28)
[2017-06-26] MEDS: BUDESONIDE/FORMOTEROL FUMARATE 160/4.5 60 PUFFS/INHALER INH SCH ×2 (08:03→20:25)
[2017-06-26] MEDS: CYANOCOBALAMIN 500 MCG TAB (VIT B-12) PO SCH (08:05)
[2017-06-26] MEDS: CALCIUM 600MG + VIT D 400 IU TAB PO SCH ×2 (08:05→20:27)
[2017-06-26 08:36] LABS: HEMATOCRIT 41.7 % (37-47); MEAN CELL VOLUME 89.5 fL (80-100); MEAN CORPUSCULAR HGB CONC 33.6 g/dl (32-36); MEAN PLATELET VOLUME 9.8 fL (7.4-10.4); PLATELET COUNT 251 K/uL (130-400); RED CELL DISTRIBUTION WIDTH CV 14.6 % (11.5-14.5); RED CELL DISTRIBUTION WIDTH SD 47.5 fL (36.4-46.3); WHITE BLOOD COUNT 16.55 K/uL (4.8-10.8)
[2017-06-26] MEDS ORDERED: DIGOXIN IV 250 MCG in SYRINGE 9 ML IV ONE (09:00)
[2017-06-26] MEDS: INSULIN ASPART 100 UNITS/ML 3 ML PEN SC SCH ×4 (09:02→20:27)
[2017-06-26 09:08] LABS: CALCIUM 9.7 mg/dl (8.5-10.1); CREATININE 0.72 mg/dl (0.60-1.20); POTASSIUM 3.8 mmol/L (3.5-5.1)
[2017-06-26] MEDS: GUAIFENESIN/CODEINE 100MG/10MG 5ML UDC PO PRN ×2 (11:31→23:07)
--- NOTE | 2017-06-26 11:39 | Progress Note ---
Subjective Date of Service: Jun 26, 2017. Subjective pt is not really getting much better, she has right sided chest wall pain, concern on x ray that she may have an effusion, will discuss with pulmonary med Problem List Medical Problems: (1) Acute bronchitis Status: Acute (2) COPD exacerbation Status: Acute (3) COPD exacerbation Status: Acute (4) Elevated troponin Status: Acute (5) Hyponatremia Status: Acute (6) Hypoxia Status: Acute (7) Influenza A Status: Acute Review of Systems Constitutional: + weakness, + fatigue, No fever, No chills Respiratory: + cough, + shortness of breath, + dyspnea on exertion Cardiac: + chest pain, No edema Abdomen: No pain, No nausea, No vomiting, No diarrhea Female : No dysuria, No urinary frequency Psychiatric: No depression symptoms, No anhedonism Objective Vital Signs Date Time Temp Pulse Resp B/P (MAP) Pulse Ox O2 Delivery O2 Flow Rate FiO2 06/26/17 11:13 90 18 95 Nasal Cannula 2.0 06/26/17 10:25 98 06/26/17 09:40 105 06/26/17 08:45 134 06/26/17 08:37 127 121/81 (94) 06/26/17 08:00 Nasal Cannula 2.0 06/26/17 07:56 125 123/82 (96) 06/26/17 07:22 36.8 125 20 161/88 (112) 90 06/26/17 07:05 81 18 93 Nasal Cannula 2.0 06/26/17 03:20 59 18 93 Nasal Cannula 2.0 06/26/17 00:05 94 Nasal Cannula 2.0 06/25/17 23:16 64 18 94 Nasal Cannula 2.0 06/25/17 22:57 36.8 63 16 132/72 (92) 95 Nasal Cannula 3.0 06/25/17 20:17 64 06/25/17 19:38 63 18 94 Nasal Cannula 2.0 06/25/17 16:00 Nasal Cannula 2.0 06/25/17 15:07 61 18 95 Nasal Cannula 2.0 06/25/17 14:49 36.8 62 20 129/73 (91) 92 2.0 Physical Exam General Appearance: WD/WN, + mild distress Eyes: normal inspection, sclerae normal Neck: supple, no carotid bruits Respiratory/Chest: + decreased breath sounds (right base), + accessory muscle use, + wheezing Cardiovascular: regular rate, rhythm, no murmur Abdomen: normal bowel sounds, non tender, soft Neurologic/Psychiatric: alert, oriented x 3 Laboratory Results Last 24 Hours Test 06/25/17 16:27 06/25/17 20:09 06/26/17 07:30 06/26/17 08:16 Bedside Glucose 151 mg/dl 156 mg/dl 100 mg/dl White Blood Count 16.55 K/uL Red Blood Count 4.66 M/uL Hemoglobin 14.0 g/dL Hematocrit 41.7 % Mean Corpuscular Volume 89.5 fL Mean Corpuscular Hemoglobin 30.0 pg Mean Corpuscular Hemoglobin Concent 33.6 g/dl RDW Standard Deviation 47.5 fL RDW Coefficient of Variation 14.6 % Platelet Count 251 K/uL Mean Platelet Volume 9.8 fL Sodium Level 135 mmol/L Potassium Level 3.8 mmol/L Chloride Level 97 mmol/L Carbon Dioxide Level 32 mmol/L Anion Gap 6.0 mmol/L Blood Urea Nitrogen 19 mg/dl Creatinine 0.72 mg/dl Est Creatinine Clear Calc Drug Dose 82.6 ml/min Estimated GFR () 99.0 Estimated GFR (Non- 85.4 BUN/Creatinine Ratio 26.7 Random Glucose 119 mg/dl Calcium Level 9.7 mg/dl Magnesium Level 2.3 mg/dl Assessment and Plan 71-F with acute hypoxic respiratory failure on chronic respiratory failure from COPD with acute influenza A and superimposed bacterial pneumonia possibly aspiration she has a history of paroxysmal atrial fibrillation on long-term anticoagulation, hypothyroidism, hypertension, hyperlipidemia, peripheral neuropathy, LISSETH on nocturnal O2, and dry eye syndrome. She had failed outpt treatment with Augmentin and steroids. Elevated troponin on admission. Acute hypoxemic respiratory failure/asthma and COPD exacerbation/influenza A respiratory illness, slow to improve, but daily is getting better Tamiflu for 5 day course for influenza A -Consult pulmonology is following, felt possibly secondary pneumonia, swallowing study suggests mild decreased motility and CT below may support aspiration, changed to clindamycin but new x ray 06/26 suggests right effusion will discuss thoracentesis but will need to hold xarelto, no rib fracture seen, will add oxycodone for chest wall pain chest CT neg for PE and suggests aspiration, esophageal x ray suggests mild decrease in motility cont symbicort 2 puffs BID Elevated troponin/PAF, INitial ECG without ischemic changes, likely demand ischemia.has some afib with rvr in am 06/26 No RWMA on echocardiogram and preserved EF,continues to sound regular on exam continues on flecainide, digoxin, statin, Lasix and Toprol-XL plus Xarelto for anticoagulation( may need to hold for tap) Hyponatremia-on admission resolved Neuropathy gabapentin no neuropathic pain Hypothyroidism levothyroxine at home doses LISSETH-has not tolerated CPAP in the past, reamins on nocturnal O2, once recovers will recommend outpt sleep apnea testing again DVT Prophylaxis-Xarelto Full Code will need PT/Ot due to prolonged stay Continued [facility] stay due to: ambulation difficulties, multiple IV medications needed, other (worsening chest symptoms ) Discharge planning: home
--- NOTE | 2017-06-26 11:49 | DIAGNOSTIC IMAGING REPORT ---
CHEST 2 VIEWS ROUTINE CLINICAL HISTORY: Persistent right-sided chest pain. COMPARISON STUDY: Chest radiograph and chest CT June 22, 2017. FINDINGS: Incidental is made of oral contrast within the colon from recent barium swallow. Right lower lung consolidation is noted. A moderate right pleural effusion has developed since prior exam. Cardiac size is stable. There is no evidence for pulmonary edema. IMPRESSION: 1. Interval development of a moderate size right pleural effusion. 2. Right lower lung airspace opacity which could reflect pneumonia or atelectasis. Radiographic follow up is recommended to ensure resolution. Electronically signed by: Chucho Mcclendon M.D. 06/26/2017 11:48 AM Dictated Date/Time: 06/26/2017 11:44 AM
--- NOTE | 2017-06-26 11:51 | DIAGNOSTIC IMAGING REPORT ---
R RIBS UNILATERAL MIN 2 VIEWS CLINICAL HISTORY: circumferential pain below right breast to back COMPARISON STUDY: Chest CT June 22, 2017. FINDINGS: No acute right rib fractures are identified. A moderate right pleural effusion is noted with right basilar airspace opacity. Oral contrast within portions of the colon is incidentally noted. IMPRESSION: 1. No acute right-sided rib fractures identified. 2. Moderate right pleural effusion with right basilar opacity which could reflect pneumonia or atelectasis. Electronically signed by: Chucho Mcclendon M.D. 06/26/2017 11:50 AM Dictated Date/Time: 06/26/2017 11:48 AM
--- NOTE | 2017-06-26 13:42 | Pulmonology Progress Note ---
Pulmonary Progress Note Date of Service Jun 26, 2017. Attending Dr. Dempsey Subjective The patient continued to have cough with sputum production and blood-tinged sputum. No hemoptysis noted. The patient feels better and she is more ambulatory. She is heading towards rehabilitation. She denies any chest pain. No nausea or vomiting reported. No events overnight. Objective She is stable but her improvement has been slowly. She continues to have cough with sputum production and difficulty raising her sputum. 06/24/2017 physical exam revealed stable vital signs, she remains on oxygen, she had minimal postnasal drip, heart examination S1-S2 regular rate and rhythm , occasionally she is in A. fib, bilateral scattered rhonchi, no wheezing. Abdomen is benign no edema. Incentive spirometry up to 500 only. 06/25/2017, she has stable vital signs, O2 saturation 97% on 2 L, heart examination S1-S2 regular rate and rhythm, lungs are distant breath sounds bilaterally, abdomen is benign, no edema. 06/26/2017, the patient has stable vital signs, O2 saturation 95% on nasal cannula, no JVP, scattered rhonchi but no wheezing, no stridor, S1-S2 irregularly irregular, currently her A. fib is suboptimally controlled. Edema in the periphery. Assessment & Plan #1 asthma exacerbation. #2 left lower lobe pneumonia. Resolved. #3 mucoid impaction. Improving with hypertonic saline and bronchodilators. #4 sub-costal chest pain secondary to vigorous cough. Resolved. #5 resolved influenza A. #6 A. fib. #7 right-sided pleural effusion developed in the face of mucoid impaction in the right lower lobe likely representing atelectasis and reactive pleural effusion. The presence of A. fib with RVR could represent also developing CHF. This likely to be infectious. Plan: #1 continue prednisone 50 mg by mouth daily . Continue with the prednisone for 4 days and then taper by 10 mg every third day. #2 continue Symbicort. 2 puffs twice a day. #3 ceftriaxone and azithromycin. Can be changed to cefpodoxime twice a day. #4 ambulation. And transfer to rehabilitation when possible. #5 I would add 3% hypertonic saline nebulized every 4 hours while awake was available. #6 continue with short acting beta agonist. #7 I instructed patient on the use of incentive spirometry and Acapella valve. #8 obtain IgE level to rule out ABPA. Results also pending. #9 no evidence of gross hemoptysis. #10 I will perform bedside ultrasound of the right lower area. I reviewed her chest x-ray which showed moderate-sized pleural effusion on the right. If it is accessible by ultrasound we'll proceed with thoracentesis if the patient is agreeable. Thank you, will follow. Thank you, will follow. Data Medications: Current Inpatient Medications Medications (Trade) Dose Ordered Sig/Darlene Route Start Time Stop Time Status Last Admin Dose Admin Acetaminophen (Tylenol Tab) 650 mg Q4H PRN PO 06/15/17 19:15 07/15/17 19:14 06/26/17 07:58 650 MG Magnesium Hydroxide (Milk Of Magnesia Susp) 30 ml Q12H PRN PO 06/15/17 19:15 07/15/17 19:14 Ondansetron HCl (Zofran Inj) 4 mg Q6H PRN IV 06/15/17 19:15 07/15/17 19:14 Atorvastatin Calcium (Lipitor Tab) 20 mg QPM PO 06/15/17 21:00 07/15/17 20:59 06/25/17 20:16 20 MG Cyanocobalamin (Vitamin B-12 Tab) 500 mcg DAILY PO 06/16/17 09:00 07/16/17 08:59 06/26/17 08:05 500 MCG Digoxin (Lanoxin Tab) 0.25 mg QPM PO 06/15/17 21:00 07/15/17 20:59 06/25/17 20:17 0.25 MG Docusate Sodium (coLACE CAP) 100 mg DAILY PRN PO 06/15/17 19:30 07/15/17 19:29 06/17/17 05:22 100 MG Flecainide Acetate (Tambocor Tab) 100 mg Q12 PO 06/15/17 21:00 07/15/17 20:59 06/26/17 08:02 100 MG Furosemide (Lasix Tab) 40 mg DAILY PO 06/16/17 09:00 07/16/17 08:59 06/26/17 08:00 40 MG Latanoprost (Xalatan Oph Soln) 1 drops HS OPB 06/15/17 21:00 07/15/17 20:59 06/25/17 20:18 1 DROPS Levothyroxine Sodium (Synthroid Tab) 75 mcg DAILYBB PO 06/16/17 06:00 07/16/17 06:59 06/26/17 06:20 75 MCG Metoprolol Succinate (Toprol Xl Tab) 100 mg DAILY PO 06/16/17 09:00 07/16/17 08:59 06/26/17 08:00 100 MG Pantoprazole Sodium (Protonix Tab) 40 mg DAILY PO 06/16/17 09:00 07/16/17 08:59 06/26/17 08:00 40 MG Artificial Tears (Artificial Tears) 2 drops QID PRN OPB 06/15/17 19:30 07/15/17 19:29 06/16/17 10:03 2 DROPS Calcium/Vitamin D (Caltrate Plus Tab) 1 tab BID PO 06/15/17 21:00 07/15/17 20:59 06/26/17 08:05 1 TAB Miscellaneous Information (Order Awaiting Action) 1 ea QS N/A 06/16/17 00:00 07/16/17 00:00 Gabapentin (Neurontin Cap) 300 mg HS PO 06/15/17 22:00 07/15/17 21:59 06/25/17 20:19 300 MG Rivaroxaban (Xarelto Tab) 20 mg QAM PO 06/16/17 09:00 07/16/17 08:59 06/26/17 07:59 20 MG Ipratropium [place] (Atrovent 0.02% 0.5MG/2.5ML Neb) 0.5 mg Q4R INH 06/16/17 16:00 07/16/17 15:59 06/26/17 11:13 0.5 MG Nifedipine (Procardia Xl Tab) 30 mg QAM PO 06/20/17 09:00 07/20/17 08:59 06/26/17 07:59 30 MG Benzonatate (Tessalon Perles Cap) 200 mg TID PO 06/19/17 21:00 07/16/17 13:59 06/26/17 08:02 200 MG Codeine Phosphate/ Guaifenesin (Robitussin-AC Sugar Free Syrup) 5 ml Q6H PRN PO 06/21/17 14:15 07/21/17 14:14 06/26/17 11:31 5 ML Budesonide/ Formoterol Fumarate (Symbicort 160/ 4.5 Inh) 2 puffs BID INH 06/21/17 21:00 07/21/17 20:59 06/26/17 08:03 2 PUFFS Glucose (Glucose 40% Gel) 15-30 GRAMS 15 GRAMS... UD PRN PO 06/21/17 14:30 07/21/17 14:29 Glucose (Glucose Chew Tab) 4-8 Tablets 4 Tabl... UD PRN PO 06/21/17 14:30 07/21/17 14:29 Dextrose (Dextrose 50% 50ML Syringe) 25-50ML OF 50% DW IV FOR... UD PRN IV 06/21/17 14:30 07/21/17 14:29 Glucagon (Glucagon Inj) 1 mg UD PRN SQ 06/21/17 14:30 07/21/17 14:29 Insulin Aspart (novoLOG ASPART) SLIDING SCALE G... ACHS SC 06/21/17 16:30 07/21/17 16:29 06/26/17 12:43 6 UNITS Menthol (Nice Chandrakant) 1 chandrakant PRN PRN CHANDRAKANT 06/22/17 05:00 07/22/17 04:59 Nitroglycerin (Nitrostat Tab) 0.4 mg PRN PRN SL 06/22/17 08:00 07/22/17 07:59 06/22/17 08:09 0.4 MG Polyethylene (Miralax Powder Packet) 17 gm DAILY PO 06/22/17 10:30 07/15/17 19:14 06/26/17 08:02 17 GM Senna (Senokot Tab) 17.2 mg QAM PO 06/22/17 10:30 07/22/17 10:29 06/26/17 08:01 17.2 MG Ketorolac Tromethamine (Toradol Inj) 15 mg Q6H PRN IV. 06/22/17 18:00 06/27/17 17:59 06/22/17 18:08 15 MG Prednisone (PredniSONE TAB) 50 mg DAILY PO 06/24/17 09:00 07/24/17 08:59 06/26/17 07:59 50 MG Sodium Chloride (Sodium Chloride 7% Neb Solution) 4 ml QIDR INH 06/23/17 20:00 07/23/17 19:59 06/26/17 11:13 4 ML Levalbuterol (Xopenex 1.25MG/ 0.5ML Neb) 1.25 mg Q4R INH 06/24/17 16:00 07/24/17 15:59 06/26/17 11:13 1.25 MG Clindamycin HCl (Cleocin Cap) 150 mg Q6 PO 06/26/17 00:00 07/03/17 00:00 06/26/17 11:31 150 MG Vital Signs: Date Time Temp Pulse Resp B/P (MAP) Pulse Ox O2 Delivery O2 Flow Rate FiO2 06/26/17 11:51 93 06/26/17 11:13 90 18 95 Nasal Cannula 2.0 06/26/17 10:25 98 06/26/17 09:40 105 06/26/17 08:45 134 06/26/17 08:37 127 121/81 (94) 06/26/17 08:00 Nasal Cannula 2.0 06/26/17 07:56 125 123/82 (96) 06/26/17 07:22 36.8 125 20 161/88 (112) 90 06/26/17 07:05 81 18 93 Nasal Cannula 2.0 06/26/17 03:20 59 18 93 Nasal Cannula 2.0 06/26/17 00:05 94 Nasal Cannula 2.0 06/25/17 23:16 64 18 94 Nasal Cannula 2.0 06/25/17 22:57 36.8 63 16 132/72 (92) 95 Nasal Cannula 3.0 06/25/17 20:17 64 06/25/17 19:38 63 18 94 Nasal Cannula 2.0 06/25/17 16:00 Nasal Cannula 2.0 06/25/17 15:07 61 18 95 Nasal Cannula 2.0 06/25/17 14:49 36.8 62 20 129/73 (91) 92 2.0 Laboratory Results: Last 24 Hours Test 06/25/17 16:27 06/25/17 20:09 06/26/17 07:30 06/26/17 08:16 Bedside Glucose 151 mg/dl 156 mg/dl 100 mg/dl White Blood Count 16.55 K/uL Red Blood Count 4.66 M/uL Hemoglobin 14.0 g/dL Hematocrit 41.7 % Mean Corpuscular Volume 89.5 fL Mean Corpuscular Hemoglobin 30.0 pg Mean Corpuscular Hemoglobin Concent 33.6 g/dl RDW Standard Deviation 47.5 fL RDW Coefficient of Variation 14.6 % Platelet Count 251 K/uL Mean Platelet Volume 9.8 fL Sodium Level 135 mmol/L Potassium Level 3.8 mmol/L Chloride Level 97 mmol/L Carbon Dioxide Level 32 mmol/L Anion Gap 6.0 mmol/L Blood Urea Nitrogen 19 mg/dl Creatinine 0.72 mg/dl Est Creatinine Clear Calc Drug Dose 82.6 ml/min Estimated GFR () 99.0 Estimated GFR (Non- 85.4 BUN/Creatinine Ratio 26.7 Random Glucose 119 mg/dl Calcium Level 9.7 mg/dl Magnesium Level 2.3 mg/dl Test 06/26/17 11:24 Bedside Glucose 175 mg/dl
[2017-06-26] MEDS: LATANOPROST 0.005% OP SOLN 2.5 ML BTL OPB SCH (20:25)
[2017-06-26] MEDS: DIGOXIN 0.25 MG TAB PO SCH (20:26)
[2017-06-26] MEDS: GABAPENTIN 300 MG CAP PO SCH (20:27)
[2017-06-26] MEDS: ATORVASTATIN 20 MG TAB PO SCH (20:28)
[2017-06-27] VITALS (10 sets, daily range): BP systolic 120–147; BP diastolic 64–77; PULSE 58–89; TEMP 36.3–36.8; O2SAT 93–97
[2017-06-27] MEDS: IPRATROPIUM BROMIDE NEB SOLN 0.02% 2.5 ML VIAL INH SCH ×6 (03:25→23:02)
[2017-06-27] MEDS: LEVALBUTEROL 1.25MG/0.5ML NEB INH SCH ×6 (03:25→23:02)
[2017-06-27] MEDS: LEVOTHYROXINE 75 MCG TAB PO SCH (05:59)
[2017-06-27] MEDS: CLINDAMYCIN HCL 150 MG CAP PO SCH ×4 (05:59→23:36)
[2017-06-27] MEDS: SODIUM CHLORIDE 7% 4 ML NEB INH SCH ×4 (07:29→19:03)
[2017-06-27] MEDS: BUDESONIDE/FORMOTEROL FUMARATE 160/4.5 60 PUFFS/INHALER INH SCH ×2 (07:55→20:11)
[2017-06-27] MEDS: OXYCODONE HCL IR 5 MG TAB (IMMEDIATE RELEASE) PO PRN (07:56)
[2017-06-27] MEDS: POLYETHYLENE (MIRALAX) 17 GM PACK PO SCH (07:57)
[2017-06-27] MEDS: SENNA 8.6 MG TAB PO SCH (07:58)
[2017-06-27] MEDS: FLECAINIDE ACETATE 100 MG TAB PO SCH ×2 (08:01→20:14)
[2017-06-27] MEDS: CYANOCOBALAMIN 500 MCG TAB (VIT B-12) PO SCH (08:01)
[2017-06-27] MEDS: FUROSEMIDE 40 MG TAB PO SCH (08:02)
[2017-06-27] MEDS: RIVAROXABAN 20 MG TAB PO SCH (08:02)
[2017-06-27] MEDS: BENZONATATE 100MG CAP PO SCH ×3 (08:03→20:13)
[2017-06-27] MEDS: PANTOprazole SOD 40 MG TAB PO SCH (08:03)
[2017-06-27] MEDS: NIFEdipine 30 MG CR TAB PO SCH (08:04)
[2017-06-27] MEDS: CALCIUM 600MG + VIT D 400 IU TAB PO SCH ×2 (09:06→20:15)
[2017-06-27] MEDS: METOPROLOL SUCC 50MG EXT REL TAB PO SCH (09:07)
[2017-06-27] MEDS: INSULIN ASPART 100 UNITS/ML 3 ML PEN SC SCH ×4 (09:09→20:17)
[2017-06-27] MEDS: GUAIFENESIN/CODEINE 100MG/10MG 5ML UDC PO PRN (12:42)
--- NOTE | 2017-06-27 14:13 | Progress Note ---
Subjective Date of Service: Jun 27, 2017. Subjective Patient continues to do poorly with daily dyspnea expiratory wheezes and cough with mild amounts of hemoptysis she is currently being seen for possible parapneumonic effusion which is of undetermined etiology either postinfectious or possibly related to heart failure there is current evaluation for possible thoracentesis Problem List Medical Problems: (1) Acute bronchitis Status: Acute (2) COPD exacerbation Status: Acute (3) COPD exacerbation Status: Acute (4) Elevated troponin Status: Acute (5) Hyponatremia Status: Acute (6) Hypoxia Status: Acute (7) Influenza A Status: Acute Review of Systems Constitutional: + weakness, + fatigue, No fever, No chills Respiratory: + cough, + sputum (blood-tinged), + wheezing, + dyspnea on exertion Cardiac: + chest pain, No edema (anterior chest wall pain) Abdomen: No pain, No nausea, No vomiting, No diarrhea Musculoskeletal: No joint pain, No muscle pain Psychiatric: No depression symptoms Objective Vital Signs Date Time Temp Pulse Resp B/P (MAP) Pulse Ox O2 Delivery O2 Flow Rate FiO2 06/27/17 11:24 63 18 93 Nasal Cannula 3.0 06/27/17 08:00 Nasal Cannula 3.0 06/27/17 07:29 89 18 97 Nasal Cannula 3.0 06/27/17 07:19 36.8 68 18 147/77 (100) 93 3.0 06/27/17 03:25 88 18 94 Nasal Cannula 2.0 06/27/17 00:06 93 Nasal Cannula 2.0 06/26/17 23:30 86 18 93 Nasal Cannula 2.0 06/26/17 23:07 36.9 84 18 136/82 (100) 92 Nasal Cannula 3.0 06/26/17 20:26 98 06/26/17 19:18 93 18 95 Nasal Cannula 2.0 06/26/17 16:00 Nasal Cannula 2.0 06/26/17 15:27 88 18 95 Nasal Cannula 2.0 06/26/17 15:24 36.7 93 22 152/74 (100) 93 Nasal Cannula 2.0 06/26/17 14:56 88 91 Physical Exam General Appearance: WD/WN, + mild distress Respiratory/Chest: + respiratory distress, + decreased breath sounds (right base consistent with her pleural effusion), + accessory muscle use, + pertinent finding (mild bloody mucus production) Cardiovascular: + systolic murmur, + irregularly irregular (morbid well rate controlled today) Abdomen: normal bowel sounds, non tender, soft Extremities: no pedal edema, no calf tenderness Neurologic/Psychiatric: alert, oriented x 3 Laboratory Results Last 24 Hours Test 06/26/17 16:40 06/26/17 20:18 06/27/17 07:29 06/27/17 11:55 Bedside Glucose 135 mg/dl 113 mg/dl 97 mg/dl 176 mg/dl Assessment and Plan 71-F with acute hypoxic respiratory failure on chronic respiratory failure from COPD with acute influenza A and superimposed bacterial pneumonia possibly aspiration now with right basilar pleural effusion of undetermined etiology she has a history of paroxysmal atrial fibrillation on long-term anticoagulation, hypothyroidism, hypertension, hyperlipidemia, peripheral neuropathy, LISSETH on nocturnal O2, and dry eye syndrome. She had failed outpt treatment with Augmentin and steroids. Elevated troponin on admission. Acute hypoxemic respiratory failure/asthma and COPD exacerbation/influenza A respiratory illness, continues to be very slow with improvement continues with blood-tinged sputum Tamiflu for 5 day course for influenza A -Consult pulmonology is following, felt possibly secondary pneumonia, swallowing study suggests mild decreased motility and CT below may support aspiration, changed to clindamycin but new x ray 06/26 suggests right effusion will discuss thoracentesis, no rib fracture seen, holding Xarelto 06/27 in case of bronchoscopy using by mouth oxycodone for chest wall pain chest CT neg for PE and suggests aspiration, esophageal x ray suggests mild decrease in motility cont symbicort 2 puffs BID Elevated troponin/PAF, INitial ECG without ischemic changes, likely demand ischemia.has some afib with rvr in am 06/26 more control and 06/27 No RWMA on echocardiogram and preserved EF continues on flecainide, digoxin, statin, Lasix and Toprol-XL plus Xarelto for anticoagulation( may need to hold for procedure) Hyponatremia-on admission resolved Neuropathy gabapentin no neuropathic pain Hypothyroidism levothyroxine at home doses LISSETH-has not tolerated CPAP in the past, remains on nocturnal O2, once recovers will recommend outpt sleep apnea testing again DVT Prophylaxis-Xarelto currently on hold 06/27 Full Code will need PT/Ot due to prolonged stay considering rehabilitation Continued [facility] stay due to: ambulation difficulties, multiple IV medications needed, other (worsening chest symptoms ) Discharge planning: home
[2017-06-27] MEDS ORDERED: CONSULT PHARMACY STA (17:07)
--- NOTE | 2017-06-27 17:17 | Pulmonology Progress Note ---
Pulmonary Progress Note Date of Service Jun 27, 2017. Attending Dr. Ke Spann The patient remains with cough, shortness of breath, no chest pain was reported. Sputum remains with blood tinge. Did not have any fever or constitutional symptoms. Objective She is stable but her improvement has been slowly. She continues to have cough with sputum production and difficulty raising her sputum. 06/24/2017 physical exam revealed stable vital signs, she remains on oxygen, she had minimal postnasal drip, heart examination S1-S2 regular rate and rhythm , occasionally she is in A. fib, bilateral scattered rhonchi, no wheezing. Abdomen is benign no edema. Incentive spirometry up to 500 only. 06/25/2017, she has stable vital signs, O2 saturation 97% on 2 L, heart examination S1-S2 regular rate and rhythm, lungs are distant breath sounds bilaterally, abdomen is benign, no edema. 06/26/2017, the patient has stable vital signs, O2 saturation 95% on nasal cannula, no JVP, scattered rhonchi but no wheezing, no stridor, S1-S2 irregularly irregular, currently her A. fib is suboptimally controlled. Edema in the periphery. 06/27/2017, the patient vital signs remain stable, she is not febrile, O2 saturation is 93% on nasal cannula, no JVP, bibasilar crackles, no wheezing, edema in the periphery noted. The patient remains in A. fib. Assessment & Plan #1 asthma exacerbation. Improving now down on prednisone by mouth. #2 left lower lobe pneumonia. Slowly resolving, I have performed ultrasound of the bedside which showed right lower lobe atelectasis, small pleural effusion, septation was noted. #3 mucoid impaction. Improving with hypertonic saline and bronchodilators. I am concerned that the patient might have had food impaction as well in the right lower lobe. #4 sub-costal chest pain secondary to vigorous cough. Resolved. #5 resolved influenza A. #6 A. fib. #7 right-sided pleural effusion developed in the face of mucoid impaction versus food impaction in the right lower lobe likely representing atelectasis and reactive pleural effusion. The presence of A. fib with RVR could represent also developing CHF. This likely to be infectious. The pleural effusion is too small for simple thoracentesis. Septation also was noted. Plan: #1 continue prednisone 50 mg by mouth daily . Continue with the prednisone for 4 days and then taper by 10 mg every third day. #2 continue Symbicort. 2 puffs twice a day. #3 ceftriaxone and azithromycin. Can be changed to cefpodoxime twice a day. I have noticed the patient currently is on clindamycin by mouth. #4 ambulation. And transfer to rehabilitation when possible. #5 I would add 3% hypertonic saline nebulized every 4 hours while awake was available. #6 continue with short acting beta agonist. #7 I instructed patient on the use of incentive spirometry and Acapella valve. #8 obtain IgE level to rule out ABPA. Results also pending. #9 no evidence of gross hemoptysis. #10 I will perform bedside ultrasound of the right lower area. I reviewed her chest x-ray which showed moderate-sized pleural effusion on the right. If it is accessible by ultrasound we'll proceed with thoracentesis if the patient is agreeable. #11 I will stop Xarelto and start the patient on heparin drip. I discussed the case with pharmacy, appreciate their input in adjusting the dose. #12 preparation for bronchoscopy hopefully on June 29. #13 patient is in agreement with the plan. #14 bedside ultrasound can be done after the bronchoscopy at the same time to evaluate for the pleural effusion. If it persists placing a small pigtail catheter and treatment with local TPA /Dornase to help drain the complex pleural effusion. I will defer that decision to my colleague on service. Thank you, will follow. Data Medications: Current Inpatient Medications Medications (Trade) Dose Ordered Sig/Darlene Route Start Time Stop Time Status Last Admin Dose Admin Acetaminophen (Tylenol Tab) 650 mg Q4H PRN PO 06/15/17 19:15 07/15/17 19:14 06/26/17 07:58 650 MG Magnesium Hydroxide (Milk Of Magnesia Susp) 30 ml Q12H PRN PO 06/15/17 19:15 07/15/17 19:14 Ondansetron HCl (Zofran Inj) 4 mg Q6H PRN IV 06/15/17 19:15 07/15/17 19:14 Atorvastatin Calcium (Lipitor Tab) 20 mg QPM PO 06/15/17 21:00 07/15/17 20:59 06/26/17 20:28 20 MG Cyanocobalamin (Vitamin B-12 Tab) 500 mcg DAILY PO 06/16/17 09:00 07/16/17 08:59 06/27/17 08:01 500 MCG Digoxin (Lanoxin Tab) 0.25 mg QPM PO 06/15/17 21:00 07/15/17 20:59 06/26/17 20:26 0.25 MG Docusate Sodium (coLACE CAP) 100 mg DAILY PRN PO 06/15/17 19:30 07/15/17 19:29 06/17/17 05:22 100 MG Flecainide Acetate (Tambocor Tab) 100 mg Q12 PO 06/15/17 21:00 07/15/17 20:59 06/27/17 08:01 100 MG Furosemide (Lasix Tab) 40 mg DAILY PO 06/16/17 09:00 07/16/17 08:59 06/27/17 08:02 40 MG Latanoprost (Xalatan Oph Soln) 1 drops HS OPB 06/15/17 21:00 07/15/17 20:59 06/26/17 20:25 1 DROPS Levothyroxine Sodium (Synthroid Tab) 75 mcg DAILYBB PO 06/16/17 06:00 07/16/17 06:59 06/27/17 05:59 75 MCG Metoprolol Succinate (Toprol Xl Tab) 100 mg DAILY PO 06/16/17 09:00 07/16/17 08:59 06/27/17 09:07 100 MG Pantoprazole Sodium (Protonix Tab) 40 mg DAILY PO 06/16/17 09:00 07/16/17 08:59 06/27/17 08:03 40 MG Artificial Tears (Artificial Tears) 2 drops QID PRN OPB 06/15/17 19:30 07/15/17 19:29 06/16/17 10:03 2 DROPS Calcium/Vitamin D (Caltrate Plus Tab) 1 tab BID PO 06/15/17 21:00 07/15/17 20:59 06/27/17 09:06 1 TAB Miscellaneous Information (Order Awaiting Action) 1 ea QS N/A 06/16/17 00:00 07/16/17 00:00 Gabapentin (Neurontin Cap) 300 mg HS PO 06/15/17 22:00 07/15/17 21:59 06/26/17 20:27 300 MG Ipratropium [place] (Atrovent 0.02% 0.5MG/2.5ML Neb) 0.5 mg Q4R INH 06/16/17 16:00 07/16/17 15:59 06/27/17 15:11 0.5 MG Nifedipine (Procardia Xl Tab) 30 mg QAM PO 06/20/17 09:00 07/20/17 08:59 06/27/17 08:04 30 MG Benzonatate (Tessalon Perles Cap) 200 mg TID PO 06/19/17 21:00 07/16/17 13:59 06/27/17 14:28 200 MG Codeine Phosphate/ Guaifenesin (Robitussin-AC Sugar Free Syrup) 5 ml Q6H PRN PO 06/21/17 14:15 07/21/17 14:14 06/27/17 12:42 5 ML Budesonide/ Formoterol Fumarate (Symbicort 160/ 4.5 Inh) 2 puffs BID INH 06/21/17 21:00 07/21/17 20:59 06/27/17 07:55 2 PUFFS Glucose (Glucose 40% Gel) 15-30 GRAMS 15 GRAMS... UD PRN PO 06/21/17 14:30 07/21/17 14:29 Glucose (Glucose Chew Tab) 4-8 Tablets 4 Tabl... UD PRN PO 06/21/17 14:30 07/21/17 14:29 Dextrose (Dextrose 50% 50ML Syringe) 25-50ML OF 50% DW IV FOR... UD PRN IV 06/21/17 14:30 07/21/17 14:29 Glucagon (Glucagon Inj) 1 mg UD PRN SQ 06/21/17 14:30 07/21/17 14:29 Insulin Aspart (novoLOG ASPART) SLIDING SCALE G... ACHS SC 06/21/17 16:30 07/21/17 16:29 06/27/17 12:41 6 UNITS Menthol (Nice Dez) 1 dez PRN PRN DEZ 06/22/17 05:00 07/22/17 04:59 Nitroglycerin (Nitrostat Tab) 0.4 mg PRN PRN SL 06/22/17 08:00 07/22/17 07:59 06/22/17 08:09 0.4 MG Polyethylene (Miralax Powder Packet) 17 gm DAILY PO 06/22/17 10:30 07/15/17 19:14 06/27/17 07:57 17 GM Senna (Senokot Tab) 17.2 mg QAM PO 06/22/17 10:30 07/22/17 10:29 06/27/17 07:58 17.2 MG Ketorolac Tromethamine (Toradol Inj) 15 mg Q6H PRN IV. 06/22/17 18:00 06/27/17 17:59 06/22/17 18:08 15 MG Prednisone (PredniSONE TAB) 50 mg DAILY PO 06/24/17 09:00 07/24/17 08:59 06/27/17 08:02 50 MG Sodium Chloride (Sodium Chloride 7% Neb Solution) 4 ml QIDR INH 06/23/17 20:00 07/23/17 19:59 06/27/17 15:11 4 ML Levalbuterol (Xopenex 1.25MG/ 0.5ML Neb) 1.25 mg Q4R INH 06/24/17 16:00 07/24/17 15:59 06/27/17 15:11 1.25 MG Clindamycin HCl (Cleocin Cap) 150 mg Q6 PO 06/26/17 00:00 07/03/17 00:00 06/27/17 12:41 150 MG Oxycodone HCl (Roxicodone Immediate Rel Tab) 10 mg Q6 PRN PO 06/26/17 16:00 07/10/17 15:59 06/27/17 07:56 10 MG I & O: 24-Hour Column 06/28/17 08:00 Intake Total 710 ml Balance 710 ml Vital Signs: Date Time Temp Pulse Resp B/P (MAP) Pulse Ox O2 Delivery O2 Flow Rate FiO2 06/27/17 16:00 Nasal Cannula 3.0 06/27/17 15:12 66 18 93 Nasal Cannula 3.0 06/27/17 14:58 36.4 58 20 120/64 (82) 95 Nasal Cannula 3.0 06/27/17 11:24 63 18 93 Nasal Cannula 3.0 06/27/17 08:00 Nasal Cannula 3.0 06/27/17 07:29 89 18 97 Nasal Cannula 3.0 06/27/17 07:19 36.8 68 18 147/77 (100) 93 3.0 06/27/17 03:25 88 18 94 Nasal Cannula 2.0 06/27/17 00:06 93 Nasal Cannula 2.0 06/26/17 23:30 86 18 93 Nasal Cannula 2.0 06/26/17 23:07 36.9 84 18 136/82 (100) 92 Nasal Cannula 3.0 06/26/17 20:26 98 06/26/17 19:18 93 18 95 Nasal Cannula 2.0 Laboratory Results: Last 24 Hours Test 06/26/17 20:18 06/27/17 07:29 06/27/17 11:55 Bedside Glucose 113 mg/dl 97 mg/dl 176 mg/dl
[2017-06-27 19:09] LABS: BASO % 0.1 %; BASO ABS # 0.02 K/uL (0-0.2); HEMATOCRIT 37.7 % (37-47); HEMOGLOBIN 12.6 g/dL (12.0-16.0); IG# 0.16 K/uL (0.00-0.02); LYMPH ABS # 0.86 K/uL (1.2-3.4); MEAN CELL VOLUME 89.8 fL (80-100); MEAN PLATELET VOLUME 10.3 fL (7.4-10.4); MONO % 3.7 %; MONO ABS # 0.63 K/uL (0.11-0.59); NEUT % 90.3 %; NEUT ABS # 15.38 K/uL (1.4-6.5); PLATELET COUNT 265 K/uL (130-400); RED CELL DISTRIBUTION WIDTH CV 14.5 % (11.5-14.5); RED CELL DISTRIBUTION WIDTH SD 47.4 fL (36.4-46.3); WHITE BLOOD COUNT 17.05 K/uL (4.8-10.8)
[2017-06-27 19:15] LABS: INR 1.2 (0.9-1.1); PTT PATIENT 30.6 SECONDS (21.0-31.0)
[2017-06-27 19:39] LABS: MEAN CORPUSCULAR HGB CONC 33.4 g/dl (32-36)
[2017-06-27] MEDS: LATANOPROST 0.005% OP SOLN 2.5 ML BTL OPB SCH (20:12)
[2017-06-27] MEDS: GABAPENTIN 300 MG CAP PO SCH (20:12)
[2017-06-27] MEDS: DIGOXIN 0.25 MG TAB PO SCH (20:14)
[2017-06-27] MEDS: ATORVASTATIN 20 MG TAB PO SCH (20:16)
[2017-06-27] MEDS: ACETAMINOPHEN 325 MG TAB PO PRN (22:00)
[2017-06-28] VITALS (9 sets, daily range): BP systolic 151–169; BP diastolic 66–76; PULSE 60–66; TEMP 36.7–36.8; O2SAT 92–95
[2017-06-28] MEDS: LEVALBUTEROL 1.25MG/0.5ML NEB INH SCH ×6 (04:02→23:09)
[2017-06-28] MEDS: IPRATROPIUM BROMIDE NEB SOLN 0.02% 2.5 ML VIAL INH SCH ×6 (04:02→23:09)
[2017-06-28] MEDS: LEVOTHYROXINE 75 MCG TAB PO SCH (06:02)
[2017-06-28] MEDS: CLINDAMYCIN HCL 150 MG CAP PO SCH ×4 (06:02→23:22)
[2017-06-28 06:41] LABS: HEMATOCRIT 34.5 % (37-47); HEMOGLOBIN 11.4 g/dL (12.0-16.0); MEAN CELL VOLUME 89.6 fL (80-100); MEAN CORPUSCULAR HEMOGLOBIN 29.6 pg (25-34); MEAN PLATELET VOLUME 9.8 fL (7.4-10.4); PLATELET COUNT 258 K/uL (130-400); RED CELL DISTRIBUTION WIDTH CV 14.6 % (11.5-14.5); RED CELL DISTRIBUTION WIDTH SD 47.9 fL (36.4-46.3); WHITE BLOOD COUNT 14.23 K/uL (4.8-10.8)
[2017-06-28] MEDS: SODIUM CHLORIDE 7% 4 ML NEB INH SCH ×4 (06:59→19:01)
[2017-06-28 07:22] LABS: PTT PATIENT 26.2 SECONDS (21.0-31.0)
[2017-06-28] MEDS: NIFEdipine 30 MG CR TAB PO SCH (08:00)
[2017-06-28] MEDS ORDERED: HEPARIN 25,000 UNIT/500ML D5W 500 ML IV SCH (08:00)
[2017-06-28] MEDS: CALCIUM 600MG + VIT D 400 IU TAB PO SCH ×2 (08:01→19:59)
[2017-06-28] MEDS: PANTOprazole SOD 40 MG TAB PO SCH (08:01)
[2017-06-28] MEDS: FUROSEMIDE 40 MG TAB PO SCH (08:01)
[2017-06-28] MEDS: SENNA 8.6 MG TAB PO SCH (08:01)
[2017-06-28] MEDS: FLECAINIDE ACETATE 100 MG TAB PO SCH ×2 (08:01→19:59)
[2017-06-28] MEDS: BENZONATATE 100MG CAP PO SCH ×3 (08:02→19:59)
[2017-06-28] MEDS: METOPROLOL SUCC 50MG EXT REL TAB PO SCH (08:02)
[2017-06-28] MEDS: CYANOCOBALAMIN 500 MCG TAB (VIT B-12) PO SCH (08:03)
[2017-06-28] MEDS: POLYETHYLENE (MIRALAX) 17 GM PACK PO SCH (08:03)
[2017-06-28] MEDS: INSULIN ASPART 100 UNITS/ML 3 ML PEN SC SCH ×4 (08:15→20:10)
[2017-06-28] MEDS: HEPARIN 25,000 UNIT/500ML D5W 500 ML IV PRN ×2 (08:17→16:40)
[2017-06-28] MEDS: BUDESONIDE/FORMOTEROL FUMARATE 160/4.5 60 PUFFS/INHALER INH SCH ×2 (08:22→19:59)
--- NOTE | 2017-06-28 10:18 | PULMONARY PROGRESS NOTE ---
DATE: 06/28/2017 TIME: 9:25 a.m. SUBJECTIVE: The patient continues to be somewhat short of breath more than normal. She states she is expectorating bloody mucous. She estimates that 6 times today, she has coughed up mucous, which is partially bloody about the size of a quarter. She states she has been bringing it up like this on a regular basis, but it keeps coming. Some of the mucous is a little pink. There may be just a hint of yellow, but not much. She did recall having some gagging and vomiting episodes couple of days before admission. She continues to have mild pain in the right lateral chest. She states that she has not ambulated outside of her room. She stated that physical therapy was supposed to come on the weekend, but they did not. I do not know if they have been working with her regularly or not. OBJECTIVE: VITAL SIGNS: Temperature is 36.7. She looked comfortable at rest. Pupils were reactive to light. ENT: Unremarkable. CARDIOVASCULAR: Inspection of the chest reveals a dorsal kyphosis. Heart rate was 62 per minute. The rhythm was regular. Blood pressure is elevated this morning at 169/66. Percussion of the chest reveals dullness in the right lower one-half. She has some egophony on the right. Auscultation reveals diminished breath sounds in the right lower chest. She does cough with taking deep breaths. Her oxygen saturation is 93% on 2-liter nasal cannula. EXTREMITIES: Showed no cyanosis, clubbing or edema. LABORATORY DATA: White count today was 14.23. This is improved compared with yesterday when it was 17.05. Hemoglobin is 11.4. Platelets are 258,000. INR today is 1. Serum IgE level done on the was mildly elevated at 157. IMPRESSION: 1. Opacification, right lower lung field -- likely a combination of atelectasis and diffusion. 2. Pneumonia -- improved. 3. Influenza A -- resolved. 4. Asthma by history with exacerbation. COMMENTS AND RECOMMENDATIONS: Dr. Dempsey, who has been seeing the patient, feels that she needs a bronchoscopy for diagnostic and therapeutic reasons. I agree with that based upon the history. I am contacting Dr. Duncan from interventional pulmonology to see if he can put the patient on his schedule hopefully for tomorrow. She is currently off of Xarelto. It would appear that her last dose was in the morning of June 27. She is on heparin infusion. Prednisone is currently at 50 mg per day. She is on levalbuterol and Symbicort. She is also on ipratropium by nebulizer. After the bronchoscopy is done, she will then be evaluated for a possible thoracentesis if there is an adequate amount of pleural fluid. I would encourage having the patient ambulated and strengthened.
--- NOTE | 2017-06-28 14:10 | Hospitalist Progress Note ---
Hospitalist Progress Note Date of Service Jun 28, 2017. (Helen Hernandez ., AIDA-C) Subjective Pt evaluation today including: conversation w/ patient, physical exam, chart review, lab review, review of studies, review of inpatient medication list Pain: None PO Intake: Tolerating PO diet Voiding: no voiding problems Patient reports feeling about the same, not worse but not improved. She complains of intermittent shortness of breath at rest, as well as intermittent wheezing. She states that even the smallest activity makes her feel winded. She reports a productive cough with blood tinged sputum. She feels generally weak and fatigued. She also complains of an intermittent pain along the sides of her ribs that is exacerbated by coughing, but denies any pain currently. The patient denies fevers, chills, sweats, chest pain, palpitations, claudication, nausea, vomiting, abdominal pain, dysuria, hematuria, urinary retention, paralysis, weakness, numbness and tingling. Additional Comments: See HPI for pertinent positives and negatives. All other systems reviewed and negative. (Helen Hernandez ., AIDA-C) Objective Vital Signs Date Time Temp Pulse Resp B/P (MAP) Pulse Ox O2 Delivery O2 Flow Rate FiO2 06/28/17 11:12 63 15 93 Nasal Cannula 2.0 06/28/17 08:36 Nasal Cannula 2.0 06/28/17 07:10 36.7 62 17 169/66 (100) 93 Nasal Cannula 2.0 06/28/17 07:00 63 19 93 Nasal Cannula 2.0 06/28/17 04:02 66 18 94 Nasal Cannula 2.0 06/28/17 00:11 95 Nasal Cannula 2.0 06/27/17 23:12 87 18 95 Nasal Cannula 2.0 06/27/17 22:53 36.3 65 18 136/65 (88) 93 Nasal Cannula 2.0 06/27/17 20:14 62 06/27/17 19:04 60 18 95 Nasal Cannula 3.0 06/27/17 16:00 Nasal Cannula 3.0 06/27/17 15:12 66 18 93 Nasal Cannula 3.0 06/27/17 14:58 36.4 58 20 120/64 (82) 95 Nasal Cannula 3.0 (Helen Hernandez ., AIDA-C) Physical Exam Notes: General appearance: +Morbidly obese. Well-developed, well-nourished, no apparent distress Head: Normocephalic, atraumatic Eyes: Normal inspection, PERRL, EOMI ENT: Normal ENT inspection, hearing grossly normal, pharynx normal Neck: Supple, no JVD, trachea midline Respiratory/Chest: +Decreased breath sounds throughout with very poor air movement. Diffuse wheezing. Dyspneic with talking. On 2LNC. No respiratory distress Cardiovascular: Regular rate & rhythm, no gallop, no murmur Abdomen/GI: Normal bowel sounds, non-tender, soft Extremities/Musculoskeletal: +1+ pitting edema lower extremities, R>L. Normal inspection, no calf tenderness Neurological/Psych: Alert, normal mood/affect, oriented x 3 Skin: Normal color, warm/dry, no rash (Helen Hernandez, PAJordiC) Laboratory Results Last 24 Hours Test 06/27/17 16:24 06/27/17 18:32 06/27/17 18:36 06/27/17 19:53 Bedside Glucose 168 mg/dl 176 mg/dl Prothrombin Time 12.2 SECONDS Prothromb Time International Ratio 1.2 Activated Partial Thromboplast Time 30.6 SECONDS Partial Thromboplastin Ratio 1.2 White Blood Count 17.05 K/uL Red Blood Count 4.20 M/uL Hemoglobin 12.6 g/dL Hematocrit 37.7 % Mean Corpuscular Volume 89.8 fL Mean Corpuscular Hemoglobin 30.0 pg Mean Corpuscular Hemoglobin Concent 33.4 g/dl Platelet Count 265 K/uL Mean Platelet Volume 10.3 fL Neutrophils (%) (Auto) 90.3 % Lymphocytes (%) (Auto) 5.0 % Monocytes (%) (Auto) 3.7 % Eosinophils (%) (Auto) 0.0 % Basophils (%) (Auto) 0.1 % Neutrophils # (Auto) 15.38 K/uL Lymphocytes # (Auto) 0.86 K/uL Monocytes # (Auto) 0.63 K/uL Eosinophils # (Auto) 0.00 K/uL Basophils # (Auto) 0.02 K/uL RDW Standard Deviation 47.4 fL RDW Coefficient of Variation 14.5 % Immature Granulocyte % (Auto) 0.9 % Immature Granulocyte # (Auto) 0.16 K/uL Test 06/28/17 05:55 06/28/17 07:17 White Blood Count 14.23 K/uL Red Blood Count 3.85 M/uL Hemoglobin 11.4 g/dL Hematocrit 34.5 % Mean Corpuscular Volume 89.6 fL Mean Corpuscular Hemoglobin 29.6 pg Mean Corpuscular Hemoglobin Concent 33.0 g/dl RDW Standard Deviation 47.9 fL RDW Coefficient of Variation 14.6 % Platelet Count 258 K/uL Mean Platelet Volume 9.8 fL Activated Partial Thromboplast Time 26.2 SECONDS Partial Thromboplastin Ratio 1.0 Prothrombin Time 10.2 SECONDS Prothromb Time International Ratio 1.0 (Helen Hernandez ., ULISES) Assessment and Plan 71 y/o female with a history of HTN, HLD, paroxysmal a-fib on chronic AC, COPD, asthma, hypothyroidism, neuropathy, and LISSETH who presents cough, wheezing and shortness of breath Acute hypoxic respiratory failure secondary to COPD exacerbation and influenza-- ongoing -Admit to telemetry. Stable, transferred to med/surg -Completed 5 day course of Tamiflu -Continue Prednisone 50 mg PO qd. Per pulm recs, continue at current dose for 2 more days, then taper down 10 mg every 3 days -D/C Mucinex, start Robitussin AC q6h prn cough. Continue Tessalon Perles 200 mg PO TID -Incentive spirometry. Add flutter valve -Pulmonology following, appreciate recs: Pt to go for bronchoscopy tomorrow, then can evaluate for possible thoracentesis. Hold heparin drip at midnight, resume tomorrow evening after bronch. -NPO after midnight except meds -Sputum culture heavy normal rubén -Continue Symbicort 2 puffs inh BID -Atrovent/Xopenex nebs RLL PNA, dysphagia--ongoing -CTA chest negative for PE but possible evidence of aspiration -Continue clindamycin 150 mg PO q6h. Day #3 -Esophageal x-ray suggests mild esophageal dysmotility -Speech therapy recommends dental soft, moist, slipper diet with thin liquids, aspiration precautions -Outpt GI f/u for possible EGD and/or barium swallow -Leukocytosis improving, WBC 14.23 on 06/28, down from 17.05 Elevated troponin--resolved, now WNL -Likely secondary to demand ischemia due to above DM II--no recorded h/o DM, HgbA1c 6.6 on 06/21 -Insulin sliding scale -Check BSGs q ac and qhs HTN, HLD--stable -Continue nifedipine 30 mg PO qd, Toprol XL 100 mg PO qd, and Lipitor 20 mg PO qd Paroxysmal a-fib--stable, NSR -Continue digoxin 0.25 mg PO qd, flecainide 100 mg PO BID, metoprolol as above -Xarelto stopped, on heparin drip in preparation for bronchoscopy, possible thoracentesis Hypothyroidism -Continue Synthroid 75 mcg PO qd Neuropathy -Continue gabapentin 300 mg PO qd DVT prophylaxis -Heparin drip Code Status -Level I, FULL RESUSCITATION STATUS (Helen Hernandez, PA-C) Supervising Note Dr. Matt I performed a history and physical examination on the patient. I reviewed above note and agree with it. I discussed plan with APC and patient. During my face to face encounter with the patient, I answered all of the patient's questions. (Gaudencio Matt M.D.)
[2017-06-28 14:31] LABS: PTT PATIENT 27.5 SECONDS (21.0-31.0)
[2017-06-28] MEDS ORDERED: HEPARIN IV BOLUS 6,000 UNIT in SYRINGE 0 ML IV ONE (16:15)
[2017-06-28] MEDS: ATORVASTATIN 20 MG TAB PO SCH (19:59)
[2017-06-28] MEDS: LATANOPROST 0.005% OP SOLN 2.5 ML BTL OPB SCH (19:59)
[2017-06-28] MEDS: GABAPENTIN 300 MG CAP PO SCH (19:59)
[2017-06-28] MEDS: DIGOXIN 0.25 MG TAB PO SCH (20:00)
[2017-06-28] MEDS: ACETAMINOPHEN 325 MG TAB PO PRN (21:45)
[2017-06-28 23:04] LABS: PTT PATIENT 54.6 SECONDS (21.0-31.0)
[2017-06-29] VITALS (20 sets, daily range): BP systolic 113–202; BP diastolic 64–78; PULSE 56–88; TEMP 36.2–36.8; O2SAT 90–96
[2017-06-29] MEDS: IPRATROPIUM BROMIDE NEB SOLN 0.02% 2.5 ML VIAL INH SCH ×6 (03:22→23:33)
[2017-06-29] MEDS: LEVALBUTEROL 1.25MG/0.5ML NEB INH SCH ×6 (03:22→23:33)
[2017-06-29] MEDS: INSULIN ASPART 100 UNITS/ML 3 ML PEN SC SCH ×4 (06:30→20:42)
[2017-06-29] MEDS: LEVOTHYROXINE 75 MCG TAB PO SCH (06:39)
[2017-06-29] MEDS: CLINDAMYCIN HCL 150 MG CAP PO SCH ×4 (06:39→23:42)
[2017-06-29] MEDS: SODIUM CHLORIDE 7% 4 ML NEB INH SCH ×4 (07:05→20:19)
[2017-06-29 07:10] LABS: HEMATOCRIT 34.5 % (37-47); HEMOGLOBIN 11.4 g/dL (12.0-16.0); MEAN CELL VOLUME 89.6 fL (80-100); MEAN CORPUSCULAR HEMOGLOBIN 29.6 pg (25-34); MEAN PLATELET VOLUME 9.6 fL (7.4-10.4); PLATELET COUNT 280 K/uL (130-400); RED CELL DISTRIBUTION WIDTH CV 14.6 % (11.5-14.5); RED CELL DISTRIBUTION WIDTH SD 47.7 fL (36.4-46.3); WHITE BLOOD COUNT 11.68 K/uL (4.8-10.8)
--- NOTE | 2017-06-29 09:10 | History & Physical Bridge Note ---
H&P Re-Evaluation Bridge Note: I have examined the patient, reviewed the History & Physical and in the interval since the performance of the History & Physical I have noted the following changes of clinical significance: No changes noted
--- NOTE | 2017-06-29 09:11 | Pre Sedation Assessment ---
Pre Sedation Assessment General Date of Sedation: Jun 29, 2017. Vital Signs Past 12 Hours Date Time Temp Pulse Resp B/P (MAP) Pulse Ox O2 Delivery O2 Flow Rate FiO2 06/29/17 09:03 65 18 178/63 100 Mask 6 06/29/17 07:22 36.8 56 20 165/77 (106) 93 06/29/17 07:06 56 15 95 Nasal Cannula 2.0 06/29/17 03:23 58 16 95 Nasal Cannula 2.0 06/29/17 00:12 36.8 60 16 155/65 (95) 94 Nasal Cannula 2.0 06/29/17 00:11 Nasal Cannula 2.0 06/28/17 23:09 66 16 93 Nasal Cannula 2.0 Review Cardiovascular: regular rate, rhythm, no edema, no gallop, no JVD, no murmur, normal peripheral pulses Lungs: + decreased breath sounds, + rhonchi Pre-Sedation Airway Assessment Smoking Status: Never Smoker Hx of Sleep Apnea: Yes Short Thick Neck: Yes Thyro-mental Distance: < or =3 Finger Breadths Oral Cavity: WNL Mallampati Classification: Class III ASA Classification: Class III NPO Status Date of Last Intake of Fluids: Jun 29, 2017 Time of Last Intake of Fluids: 9 Date of Last Intake of Solids: Jun 28, 2017 Time of Last Intake of Solids: 193 Procedure Planning Contraindications for Sedation: None Current Medications Reviewed: Yes Notes The planned sedation has been discussed with the patient. Informed Consent was obtained. I have identified the patient, determined the appropriateness of sedation and have assessed the patient immediately prior to the procedure. All medicine(s) and interventions are by my order.
--- NOTE | 2017-06-29 09:38 | Bronchoscopy Procedure Note ---
Bronchoscopy Procedure Note Procedure: Bronchoscopy, conscious sedation, bronchial lavage right lower lobe Consent: Obtained through the patient placed into the chart Pre-procedural diagnosis: Atelectasis versus pneumonia Post-procedural diagnosis: Atelectasis versus pneumonia Start time: 914 End time: 929 Total time: 15 minutes Analgesia: 2% liquid lidocaine: Via nebulizer 4% gel lidocaine: Via right naris 2% liquid lidocaine: Via bronchoscopy Sedation: Versed IV: 3mg Fentanyl IV: 50g Procedure: The Olympus video bronchoscope was used for this procedure and passed down through the right naris Right naris/posterior naris/posterior oropharynx: Diffuse erythema of the posterior naris Glottis: Anatomically within normal limits Vocal cords: Proper abduction and abduction, anatomically within normal limits Subglottis/trachea/Rachel: Anatomically within normal limits Right bronchial tree: Right mainstem bronchus: Anatomically within normal limits Right upper lobe: Anatomically within normal limits Bronchus intermedius: Anatomically within normal limits Right middle lobe: Anatomically within normal limits, minimal mucous plugs Right lower lobe: Mild external collapse suggestive of Edac of minimal mucous plugs appreciated coming from the basal pyramids Findings: No significant findings noted Left bronchial tree: Left mainstem bronchus: Anatomically within normal limits Left upper lobe: Anatomically within normal limits Lingula: Anatomically within normal limits Left lower lobe: Anatomically within normal limits Findings: No significant findings noted Bronchial alveolar lavage: Right lower lobe EBL: None Complications: None Follow-up: ASU
[2017-06-29] MEDS ORDERED: LEVALBUTEROL 1.25MG/3ML NEB INH ONE (09:42)
[2017-06-29] MEDS ORDERED: LIDOCAINE VISCOUS 2% 100ML TOP ONE (09:48)
[2017-06-29] MEDS ORDERED: MIDAZOLAM HCL 5 MG/ML 1 ML VIAL IV ONE (09:48)
[2017-06-29] MEDS ORDERED: LIDOCAINE HCL 2% LOCAL 50ML VIAL INSTIL ONE (09:48)
[2017-06-29] MEDS ORDERED: LIDOCAINE 4% INH SOLN 4 ML BTL NEB ONE (09:48)
[2017-06-29] MEDS ORDERED: FENTANYL CITRATE INJ 50 MCG/1 ML 2 ML VIAL IV ONE (09:48)
[2017-06-29] MEDS ORDERED: HydrALAZINE HCL 20 MG/ML VIAL IV. ONE (09:55)
[2017-06-29] MEDS ORDERED: NURSING VERBAL MED ORDER ONE ×2 (10:00→18:45)
[2017-06-29] MEDS: SODIUM CHLORIDE 0.9% 1000ML 1,000 ML IV SCH (10:27)
[2017-06-29] MEDS: DEXTROSE 5% 1000ML 1,000 ML IV SCH (10:30)
--- NOTE | 2017-06-29 11:33 | Post Sedation Assessment ---
Post Sedation Assessment General Date of Sedation Jun 29, 2017. Vital Signs: Vital Signs Past 12 Hours Date Time Temp Pulse Resp B/P (MAP) Pulse Ox O2 Delivery O2 Flow Rate FiO2 06/29/17 11:10 88 17 95 Nasal Cannula 2.0 06/29/17 11:05 79 176/64 (101) 93 Oxymask 10.0 06/29/17 10:56 83 191/68 (109) 06/29/17 10:45 87 32 202/71 (114) 92 Oxymask 10.0 06/29/17 10:30 87 32 202/74 (116) 94 Oxymask 10.0 06/29/17 10:15 36.9 87 24 167/57 94 Mask 10 06/29/17 10:10 36.9 87 24 173/64 94 Mask 10 06/29/17 10:05 36.9 90 26 158/60 93 Mask 10 06/29/17 10:00 36.9 90 26 175/64 92 Mask 10 06/29/17 09:55 36.9 92 26 160/82 91 Mask 10 06/29/17 09:50 36.9 91 26 180/89 91 Mask 10 06/29/17 09:45 89 22 169/73 92 Mask 10 06/29/17 09:40 85 26 177/101 91 Mask 10 06/29/17 09:35 80 18 189/66 88 Mask 10 06/29/17 09:30 80 18 173/83 91 Mask 10 06/29/17 09:25 71 16 165/66 94 Mask 9 06/29/17 09:20 67 18 137/61 98 Mask 9 06/29/17 09:15 70 20 189/69 98 Mask 9 06/29/17 09:10 75 18 161/67 100 Mask 6 06/29/17 09:03 65 18 178/63 100 Mask 6 06/29/17 08:00 Nasal Cannula 2.0 06/29/17 07:22 36.8 56 20 165/77 (106) 93 06/29/17 07:06 56 15 95 Nasal Cannula 2.0 06/29/17 03:23 58 16 95 Nasal Cannula 2.0 06/29/17 00:12 36.8 60 16 155/65 (95) 94 Nasal Cannula 2.0 06/29/17 00:11 Nasal Cannula 2.0 Post Procedure Recovery Score Activity: (2) Moves 4 extremities * Respiration: (2) Deep breath/cough Circulation: (1) +/-20-49% PreAnes Christiane Consciousness: (2) Fully Awake Oxygen Saturation: (1) O2 needed for >90% Post Anesthesia Score: 8 Discharge Sedation Level of Care: Fast Track Phase II Post Sedation Plan On clinical assessment, the patient appears to have tolerated the sedation without complications. Patient is recovering as anticipated. Patient will continue to be monitored by nursing and may be discharged when sedation discharge criteria are met per below protocol. Upon Completions of procedure and additional 15 minutes continue every 5 minute vital signs and the P.A.R. score; then discharge to a Phase I or Fast Track to Phase II per the following guidelines: * Discharge Patient to appropriate Phase II area if PAR is 8 or greater or return to pre- procedure baseline. The post - procedure orders will be as directed. * If PAR score is less than 8 or not return to pre-procedure baseline then patient will follow Phase I monitoring till PAR is reached for Phase II. The Phase I may be done in procedure room or may call to secure a Phase I area. * If naloxone or flumazenil are used for reversal, hold in Phase I for an additional 60 -120 minutes before discharge to Phase II. Please call the Sedation Physician to re-evaluate and complete post-note for discharge to Phase II area. Do NOT discharge from procedure sedation or Phase 1 until post- sedation evaluation note is complete by procedure /sedation MD Sedation Discharge Instructions to be given to the patient at discharge to home.
[2017-06-29] MEDS ORDERED: HydrALAZINE HCL 20 MG/ML VIAL ONE (11:34)
[2017-06-29] MEDS: BUDESONIDE/FORMOTEROL FUMARATE 160/4.5 60 PUFFS/INHALER INH SCH ×2 (11:58→20:37)
[2017-06-29] MEDS: SENNA 8.6 MG TAB PO SCH (11:59)
[2017-06-29] MEDS: FUROSEMIDE 40 MG TAB PO SCH (11:59)
[2017-06-29] MEDS: NIFEdipine 30 MG CR TAB PO SCH (11:59)
[2017-06-29] MEDS: BENZONATATE 100MG CAP PO SCH ×3 (11:59→20:41)
[2017-06-29] MEDS: PANTOprazole SOD 40 MG TAB PO SCH (12:00)
[2017-06-29] MEDS: FLECAINIDE ACETATE 100 MG TAB PO SCH ×2 (12:01→20:42)
[2017-06-29] MEDS: METOPROLOL SUCC 50MG EXT REL TAB PO SCH (12:01)
[2017-06-29] MEDS: CYANOCOBALAMIN 500 MCG TAB (VIT B-12) PO SCH (12:01)
[2017-06-29] MEDS: CALCIUM 600MG + VIT D 400 IU TAB PO SCH ×2 (12:01→20:40)
--- NOTE | 2017-06-29 12:18 | Clinical Documentation Query ---
CLINICAL DOCUMENTATION QUERY Ms. MCCABE, In your clinical opinion is this patient being managed for: ( x ) possible Aspiration Pneumonia ( ) Not Agree ( ) Other explanation of clinical findings (Please Explain) ( ) Unable to determine (Please Define) ( ) Need to Discuss The medical record reflects the following clinical findings, treatment, and risk factors. Clinical Indicators: 71 yo female presenting with influenza, pneumonia. Documentation in the record indicates pt with dysphagia, mild esophageal dysmotility and speech therapy recommending aspiration precautions. CT chest suggests possible evidence of aspiration Treatment: clindamycin, ST eval, aspiration precautions, recommended outpatient followup for possible EGD or barium swallow Risk Factors: dysphagia, esophageal dysmobility Please clarify and document your clinical opinion in the progress notes and discharge summary. Terms such as "probable", "suspected", "likely", "questionable", "possible", or "still to be ruled out" are acceptable. IF IN AGREEMENT, YOU MUST DOCUMENT ABOVE DIAGNOSTIC STATEMENT IN DAILY PROGRESS NOTES AND DISCHARGE SUMMARY. This document is not part of the patient's record. Thank You, Henrietta Riggins, DONATO [phone]
--- NOTE | 2017-06-29 12:21 | Clinical Documentation Query ---
CLINICAL DOCUMENTATION QUERY Dr. MONTES, In your clinical opinion is this patient being managed for: ( x) possible Aspiration Pneumonia ( ) Not Agree ( ) Other explanation of clinical findings (Please Explain) ( ) Unable to determine (Please Define) ( ) Need to Discuss The medical record reflects the following clinical findings, treatment, and risk factors. Clinical Indicators: 71 yo female presenting with influenza, pneumonia. Documentation in the record indicates pt with dysphagia, mild esophageal dysmotility and speech therapy recommending aspiration precautions. CT chest suggests possible evidence of aspiration Treatment: clindamycin, ST eval, aspiration precautions, recommended outpatient followup for possible EGD or barium swallow Risk Factors: dysphagia, esophageal dysmobility Please clarify and document your clinical opinion in the progress notes and discharge summary. Terms such as "probable", "suspected", "likely", "questionable", "possible", or "still to be ruled out" are acceptable. IF IN AGREEMENT, YOU MUST DOCUMENT ABOVE DIAGNOSTIC STATEMENT IN DAILY PROGRESS NOTES AND DISCHARGE SUMMARY. This document is not part of the patient's record. Thank You, Henrietta Riggins RN [phone]
[2017-06-29] MEDS: OXYCODONE HCL IR 5 MG TAB (IMMEDIATE RELEASE) PO PRN (15:08)
--- NOTE | 2017-06-29 15:51 | Hospitalist Progress Note ---
Hospitalist Progress Note Date of Service Jun 29, 2017. (Helen Hernandez ., PA-C) Subjective Pt evaluation today including: conversation w/ patient, physical exam, chart review, lab review, review of studies, review of inpatient medication list Pain: 10/10 headache PO Intake: Tolerating PO diet Voiding: no voiding problems Patient reports not feeling well following her bronchoscopy this morning. The patient had arrived back on the floor on 10L, now tapered down to 5L. Patient reports feeling very short of breath and dyspneic with minimal exertion. She reports productive cough and intermittent wheezing. She is weak, fatigued. She currently complains of a 10/10 throbbing frontal headache. Since the bronch she has also had some pain in her right lateral chest/right shoulder that hurts with deep breaths. The patient denies fevers, chills, sweats, palpitations, claudication, nausea, vomiting, abdominal pain, dysuria, hematuria , urinary retention, paralysis, weakness, numbness and tingling. Additional Comments: See HPI for pertinent positives and negatives. All other systems reviewed and negative. (Helen Hernandez ., PA-C) Objective Vital Signs Date Time Temp Pulse Resp B/P (MAP) Pulse Ox O2 Delivery O2 Flow Rate FiO2 06/29/17 14:39 93 Nasal Cannula 5.0 06/29/17 14:03 95 Oxymask 8.0 06/29/17 13:41 69 24 159/72 (101) 94 Oxymask 8.0 06/29/17 11:47 Oxymask 06/29/17 11:10 88 17 95 Nasal Cannula 2.0 06/29/17 11:05 79 176/64 (101) 93 Oxymask 10.0 06/29/17 10:56 83 191/68 (109) 06/29/17 10:45 87 32 202/71 (114) 92 Oxymask 10.0 06/29/17 10:30 87 32 202/74 (116) 94 Oxymask 10.0 06/29/17 10:15 36.9 87 24 167/57 94 Mask 10 06/29/17 10:10 36.9 87 24 173/64 94 Mask 10 06/29/17 10:05 36.9 90 26 158/60 93 Mask 10 06/29/17 10:00 36.9 90 26 175/64 92 Mask 10 06/29/17 09:55 36.9 92 26 160/82 91 Mask 10 06/29/17 09:50 36.9 91 26 180/89 91 Mask 10 06/29/17 09:45 89 22 169/73 92 Mask 10 06/29/17 09:40 85 26 177/101 91 Mask 10 06/29/17 09:35 80 18 189/66 88 Mask 10 06/29/17 09:30 80 18 173/83 91 Mask 10 06/29/17 09:25 71 16 165/66 94 Mask 9 06/29/17 09:20 67 18 137/61 98 Mask 9 06/29/17 09:15 70 20 189/69 98 Mask 9 06/29/17 09:10 75 18 161/67 100 Mask 6 06/29/17 09:03 65 18 178/63 100 Mask 6 06/29/17 08:00 Nasal Cannula 2.0 06/29/17 07:22 36.8 56 20 165/77 (106) 93 06/29/17 07:06 56 15 95 Nasal Cannula 2.0 06/29/17 03:23 58 16 95 Nasal Cannula 2.0 06/29/17 00:12 36.8 60 16 155/65 (95) 94 Nasal Cannula 2.0 06/29/17 00:11 Nasal Cannula 2.0 06/28/17 23:09 66 16 93 Nasal Cannula 2.0 06/28/17 20:44 Nasal Cannula 2.0 06/28/17 20:00 62 06/28/17 19:02 60 16 94 Nasal Cannula 2.0 06/28/17 16:05 18 06/28/17 16:04 Nasal Cannula 2.0 (Helen Hernandez, PA-C) Physical Exam Notes: General appearance: +Morbidly obese. Well-developed, well-nourished, no apparent distress Head: Normocephalic, atraumatic Eyes: Normal inspection, PERRL, EOMI ENT: Normal ENT inspection, hearing grossly normal, pharynx normal Neck: Supple, no JVD, trachea midline Respiratory/Chest: +Decreased breath sounds throughout with very poor air movement. Diffuse wheezing. Dyspneic with talking and at rest. On 5LNC. Right lateral chest TTP. No respiratory distress Cardiovascular: Regular rate & rhythm, no gallop, no murmur Abdomen/GI: Normal bowel sounds, non-tender, soft Extremities/Musculoskeletal: +1+ pitting edema lower extremities, R>L. Normal inspection, no calf tenderness Neurological/Psych: Alert, normal mood/affect, oriented x 3 Skin: Normal color, warm/dry, no rash (Helen Hernandez ., AIDA-C) Laboratory Results Last 24 Hours Test 06/28/17 16:43 06/28/17 20:09 06/28/17 22:30 06/29/17 06:30 Bedside Glucose 154 mg/dl 144 mg/dl Activated Partial Thromboplast Time 54.6 SECONDS 25.0 SECONDS Partial Thromboplastin Ratio 2.1 1.0 White Blood Count 11.68 K/uL Red Blood Count 3.85 M/uL Hemoglobin 11.4 g/dL Hematocrit 34.5 % Mean Corpuscular Volume 89.6 fL Mean Corpuscular Hemoglobin 29.6 pg Mean Corpuscular Hemoglobin Concent 33.0 g/dl RDW Standard Deviation 47.7 fL RDW Coefficient of Variation 14.6 % Platelet Count 280 K/uL Mean Platelet Volume 9.6 fL Test 06/29/17 08:01 06/29/17 09:40 06/29/17 11:18 Bedside Glucose 94 mg/dl 95 mg/dl 108 mg/dl (Helen Hernandez ., AIDA-C) Diagnostic Results Bronchoscopy Procedure Note Procedure: Bronchoscopy, conscious sedation, bronchial lavage right lower lobe Consent: Obtained through the patient placed into the chart Pre-procedural diagnosis: Atelectasis versus pneumonia Post-procedural diagnosis: Atelectasis versus pneumonia Start time: 914 End time: 929 Total time: 15 minutes Analgesia: 2% liquid lidocaine: Via nebulizer 4% gel lidocaine: Via right naris 2% liquid lidocaine: Via bronchoscopy Sedation: Versed IV: 3mg Fentanyl IV: 50g Procedure: The Olympus video bronchoscope was used for this procedure and passed down through the right naris Right naris/posterior naris/posterior oropharynx: Diffuse erythema of the posterior naris Glottis: Anatomically within normal limits Vocal cords: Proper abduction and abduction, anatomically within normal limits Subglottis/trachea/Rachel: Anatomically within normal limits Right bronchial tree: Right mainstem bronchus: Anatomically within normal limits Right upper lobe: Anatomically within normal limits Bronchus intermedius: Anatomically within normal limits Right middle lobe: Anatomically within normal limits, minimal mucous plugs Right lower lobe: Mild external collapse suggestive of Edac of minimal mucous plugs appreciated coming from the basal pyramids Findings: No significant findings noted Left bronchial tree: Left mainstem bronchus: Anatomically within normal limits Left upper lobe: Anatomically within normal limits Lingula: Anatomically within normal limits Left lower lobe: Anatomically within normal limits Findings: No significant findings noted Bronchial alveolar lavage: Right lower lobe EBL: None Complications: None Follow-up: ASU (Helen Hernandez, ULISES) Assessment and Plan 71 y/o female with a history of HTN, HLD, paroxysmal a-fib on chronic AC, COPD, asthma, hypothyroidism, neuropathy, and LISSETH who presents cough, wheezing and shortness of breath Acute hypoxic respiratory failure secondary to COPD exacerbation and influenza-- ongoing -Admit to telemetry. Stable, transferred to med/surg -Completed 5 day course of Tamiflu -Continue Prednisone 50 mg PO qd. Per pulm recs, continue at current dose for 1 more day, then taper down 10 mg every 3 days -D/C Mucinex, start Robitussin AC q6h prn cough. Continue Tessalon Perles 200 mg PO TID -Incentive spirometry. Add flutter valve -Pulmonology following, appreciate recs: Bronchoscopy done today. Awaiting further recs. -Bronchoscopy with minimal mucous plugs in right middle lobe and right lower lobe -Bronchial washing cultures pending -Restart heparin drip tonight -Sputum culture heavy normal rubén -Continue Symbicort 2 puffs inh BID -Atrovent/Xopenex nebs RLL PNA possibly secondary to aspiration, dysphagia--ongoing -CTA chest negative for PE but possible evidence of aspiration -Continue clindamycin 150 mg PO q6h. Day #4 -Esophageal x-ray suggests mild esophageal dysmotility -Speech therapy recommends dental soft, moist, slipper diet with thin liquids, aspiration precautions -Outpt GI f/u for possible EGD and/or barium swallow -Leukocytosis continues to improve, WBC 11.68 on 06/29, down from 14.23 Elevated troponin--resolved, now WNL -Likely secondary to demand ischemia due to above DM II--no recorded h/o DM, HgbA1c 6.6 on 06/21 -Insulin sliding scale -Check BSGs q ac and qhs HTN, HLD--stable -Continue nifedipine 30 mg PO qd, Toprol XL 100 mg PO qd, and Lipitor 20 mg PO qd Paroxysmal a-fib--stable, NSR -Continue digoxin 0.25 mg PO qd, flecainide 100 mg PO BID, metoprolol as above -Xarelto stopped, on heparin drip in preparation for bronchoscopy, possible thoracentesis Hypothyroidism -Continue Synthroid 75 mcg PO qd Neuropathy -Continue gabapentin 300 mg PO qd DVT prophylaxis -Heparin drip Code Status -Level I, FULL RESUSCITATION STATUS (Helen Hernandez, PA-C) Supervising Note Dr. Matt I performed a history and physical examination on the patient. I reviewed above note and agree with it. I discussed plan with APC and patient. During my face to face encounter with the patient, I answered all of the patient's questions. (Gaudencio Matt M.D.)
[2017-06-29] MEDS: POLYETHYLENE (MIRALAX) 17 GM PACK PO SCH (17:10)
[2017-06-29] MEDS: HEPARIN 25,000 UNIT/500ML D5W 500 ML IV PRN (19:09)
[2017-06-29] MEDS: LATANOPROST 0.005% OP SOLN 2.5 ML BTL OPB SCH (20:39)
[2017-06-29] MEDS: ATORVASTATIN 20 MG TAB PO SCH (20:40)
[2017-06-29] MEDS: GABAPENTIN 300 MG CAP PO SCH (20:40)
[2017-06-29] MEDS: DIGOXIN 0.25 MG TAB PO SCH (20:41)
[2017-06-30] VITALS (10 sets, daily range): BP systolic 144–155; BP diastolic 61–73; PULSE 53–76; TEMP 36.5–36.8; O2SAT 90–96
[2017-06-30 01:45] LABS: PTT PATIENT 34.8 SECONDS (21.0-31.0)
[2017-06-30] MEDS ORDERED: HEPARIN IV BOLUS 6,000 UNIT in SYRINGE 0 ML IV ONE (02:00)
[2017-06-30] MEDS: HEPARIN 25,000 UNIT/500ML D5W 500 ML IV PRN ×2 (02:30→09:27)
[2017-06-30] MEDS: LEVOTHYROXINE 75 MCG TAB PO SCH (06:04)
[2017-06-30] MEDS: CLINDAMYCIN HCL 150 MG CAP PO SCH ×3 (06:04→18:04)
[2017-06-30] MEDS: ACETAMINOPHEN 325 MG TAB PO PRN (06:10)
[2017-06-30] MEDS: GUAIFENESIN/CODEINE 100MG/10MG 5ML UDC PO PRN (06:14)
[2017-06-30] MEDS: IPRATROPIUM BROMIDE NEB SOLN 0.02% 2.5 ML VIAL INH SCH ×5 (06:50→23:02)
[2017-06-30] MEDS: SODIUM CHLORIDE 7% 4 ML NEB INH SCH ×4 (06:51→19:15)
[2017-06-30] MEDS: LEVALBUTEROL 1.25MG/0.5ML NEB INH SCH ×5 (06:51→23:02)
[2017-06-30] MEDS: NIFEdipine 30 MG CR TAB PO SCH (07:33)
[2017-06-30] MEDS: FUROSEMIDE 40 MG TAB PO SCH (07:33)
[2017-06-30] MEDS: BENZONATATE 100MG CAP PO SCH ×3 (07:33→21:11)
[2017-06-30] MEDS: SENNA 8.6 MG TAB PO SCH (07:33)
[2017-06-30] MEDS: PANTOprazole SOD 40 MG TAB PO SCH (07:33)
[2017-06-30] MEDS: CALCIUM 600MG + VIT D 400 IU TAB PO SCH ×2 (07:33→21:10)
[2017-06-30] MEDS: CYANOCOBALAMIN 500 MCG TAB (VIT B-12) PO SCH (07:34)
[2017-06-30] MEDS: METOPROLOL SUCC 50MG EXT REL TAB PO SCH (07:34)
[2017-06-30] MEDS: FLECAINIDE ACETATE 100 MG TAB PO SCH ×2 (07:34→21:14)
[2017-06-30] MEDS: BUDESONIDE/FORMOTEROL FUMARATE 160/4.5 60 PUFFS/INHALER INH SCH ×2 (07:35→21:07)
[2017-06-30] MEDS: POLYETHYLENE (MIRALAX) 17 GM PACK PO SCH (07:38)
[2017-06-30] MEDS: INSULIN ASPART 100 UNITS/ML 3 ML PEN SC SCH ×4 (08:43→21:06)
[2017-06-30 08:54] LABS: HEMATOCRIT 37.9 % (37-47); HEMOGLOBIN 12.7 g/dL (12.0-16.0); MEAN CELL VOLUME 89.4 fL (80-100); MEAN CORPUSCULAR HGB CONC 33.5 g/dl (32-36); MEAN PLATELET VOLUME 9.5 fL (7.4-10.4); PLATELET COUNT 285 K/uL (130-400); RED CELL DISTRIBUTION WIDTH CV 14.4 % (11.5-14.5); RED CELL DISTRIBUTION WIDTH SD 47.3 fL (36.4-46.3)
[2017-06-30 09:16] LABS: PTT PATIENT 79.8 SECONDS (21.0-31.0)
[2017-06-30] MEDS: SODIUM CHLORIDE 0.9% 1000ML 1,000 ML IV SCH (10:27)
[2017-06-30] MEDS: DEXTROSE 5% 1000ML 1,000 ML IV SCH (10:30)
--- NOTE | 2017-06-30 11:17 | Hospitalist Progress Note ---
Hospitalist Progress Note Date of Service Jun 30, 2017. (Helen Hernandez ., PA-C) Subjective Pt evaluation today including: conversation w/ patient, physical exam, chart review, lab review, conversation w/ eco industrial [employer] consultant (spoke with Dr. Villalta), review of inpatient medication list Pain: None PO Intake: Tolerating PO diet Voiding: no voiding problems Patient reports feeling better compared to yesterday afternoon after bronchoscopy. She still has shortness of breath intermittently at rest and significant dyspnea on exertion. She reports a productive cough, but she states this is improving. She continues to complain of wheezing. Her headache is much improved and her right lateral chest pain is resolved. She still feels weak and fatigued. The patient denies fevers, chills, sweats, chest pain, palpitations, claudication, nausea, vomiting, abdominal pain, dysuria, hematuria , urinary retention, paralysis, weakness, numbness and tingling. Additional Comments: See HPI for pertinent positives and negatives. All other systems reviewed and negative. (Helen Hernandez ., PA-C) Objective Vital Signs Date Time Temp Pulse Resp B/P (MAP) Pulse Ox O2 Delivery O2 Flow Rate FiO2 06/30/17 09:34 Nasal Cannula 4.0 06/30/17 08:00 Nasal Cannula 4.0 06/30/17 07:10 36.7 54 18 151/73 (99) 95 Nasal Cannula 4.0 06/30/17 06:51 53 16 96 Nasal Cannula 4.0 06/30/17 00:18 Nasal Cannula 4.0 06/29/17 23:33 71 16 96 Nasal Cannula 3.0 06/29/17 22:45 36.4 69 18 158/66 (96) 94 Nasal Cannula 4.0 06/29/17 20:41 61 06/29/17 20:19 70 16 95 Nasal Cannula 3.0 06/29/17 18:37 95 Nasal Cannula 4.0 06/29/17 16:19 36.2 62 18 119/71 (87) 90 Nasal Cannula 5.0 06/29/17 16:00 92 Nasal Cannula 5.0 06/29/17 15:34 77 16 96 Nasal Cannula 3.0 06/29/17 14:39 93 Nasal Cannula 5.0 06/29/17 14:03 95 [place] 8.0 06/29/17 13:41 69 24 159/72 (101) 94 Oxymask 8.0 06/29/17 11:47 Oxymask 06/29/17 11:10 88 17 95 Nasal Cannula 2.0 06/29/17 11:05 79 176/64 (101) 93 Oxymask 10.0 (Helen Hernandez, AIDA-C) Physical Exam Notes: General appearance: +Morbidly obese. Well-developed, well-nourished, no apparent distress Head: Normocephalic, atraumatic Eyes: Normal inspection, PERRL, EOMI ENT: Normal ENT inspection, hearing grossly normal, pharynx normal Neck: Supple, no JVD, trachea midline Respiratory/Chest: +Decreased breath sounds throughout with very poor air movement. Diffuse wheezing. On 4L NC. No respiratory distress Cardiovascular: Regular rate & rhythm, no gallop, no murmur Abdomen/GI: Normal bowel sounds, non-tender, soft Extremities/Musculoskeletal: +1+ pitting edema lower extremities, R>L. Normal inspection, no calf tenderness Neurological/Psych: Alert, normal mood/affect, oriented x 3 Skin: Normal color, warm/dry, no rash (Helen Hernandez ., PA-C) Laboratory Results Last 24 Hours Test 06/29/17 11:18 06/29/17 16:50 06/29/17 20:16 06/30/17 01:24 Bedside Glucose 108 mg/dl 202 mg/dl 196 mg/dl Activated Partial Thromboplast Time 34.8 SECONDS Partial Thromboplastin Ratio 1.3 Test 06/30/17 07:56 06/30/17 08:43 Bedside Glucose 104 mg/dl White Blood Count 12.30 K/uL Red Blood Count 4.24 M/uL Hemoglobin 12.7 g/dL Hematocrit 37.9 % Mean Corpuscular Volume 89.4 fL Mean Corpuscular Hemoglobin 30.0 pg Mean Corpuscular Hemoglobin Concent 33.5 g/dl RDW Standard Deviation 47.3 fL RDW Coefficient of Variation 14.4 % Platelet Count 285 K/uL Mean Platelet Volume 9.5 fL Activated Partial Thromboplast Time 79.8 SECONDS Partial Thromboplastin Ratio 3.1 (Helen Hernandez PA-C) Assessment and Plan 71 y/o female with a history of HTN, HLD, paroxysmal a-fib on chronic AC, COPD, asthma, hypothyroidism, neuropathy, and LISSETH who presents cough, wheezing and shortness of breath Acute hypoxic respiratory failure secondary to COPD exacerbation and influenza-- ongoing -Admit to telemetry. Stable, transferred to med/surg -Completed 5 day course of Tamiflu -D/C Prednisone 50 mg PO qd. Taper down to 40 mg PO qd x 3 days, down 10 mg every 3 days -D/C Mucinex, start Robitussin AC q6h prn cough. Continue Tessalon Perles 200 mg PO TID -Incentive spirometry. Add flutter valve -Pulmonology following, appreciate recs: Spoke with Dr. Villalta over phone. Pulm will see today. Can check repeat CXR and immunoglobulin studies. Will wait further recs after pt is seen. Will ultrasound to assess for need for thoracentesis. -Bronchoscopy with minimal mucous plugs in right middle lobe and right lower lobe -Bronchial washing cultures pending. Fungal smear negative -Continue heparin drip for now until assessed for possible thoracentesis -Sputum culture heavy normal rubén -Continue Symbicort 2 puffs inh BID -Atrovent/Xopenex nebs q4h RLL PNA possibly aspiration pneumonia, dysphagia--ongoing -CTA chest negative for PE but possible evidence of aspiration -Continue clindamycin 150 mg PO q6h. Day #5 -Esophageal x-ray suggests mild esophageal dysmotility -Speech therapy recommends dental soft, moist, slipper diet with thin liquids, aspiration precautions -Outpt GI f/u for possible EGD and/or barium swallow -Leukocytosis stable, WBC 12.30 on 06/30 -Repeat CXR as little improvement -Check immunoglobulin studies Elevated troponin--resolved, now WNL -Likely secondary to demand ischemia due to above DM II--no recorded h/o DM, HgbA1c 6.6 on 06/21 -Insulin sliding scale -Check BSGs q ac and qhs HTN, HLD--stable -Continue nifedipine 30 mg PO qd, Toprol XL 100 mg PO qd, and Lipitor 20 mg PO qd Paroxysmal a-fib--stable, NSR -Continue digoxin 0.25 mg PO qd, flecainide 100 mg PO BID, metoprolol as above -Xarelto stopped, on heparin drip in preparation for bronchoscopy, possible thoracentesis Hypothyroidism -Continue Synthroid 75 mcg PO qd Neuropathy -Continue gabapentin 300 mg PO qd DVT prophylaxis -Heparin drip Code Status -Level I, FULL RESUSCITATION STATUS (Helen Hernandez, PA-C) Supervising Note Dr. Matt I performed a history and physical examination on the patient. I reviewed above note and agree with it. I discussed plan with APC and patient. During my face to face encounter with the patient, I answered all of the patient's questions. (Gaudencio Matt M.D.)
--- NOTE | 2017-06-30 13:46 | DIAGNOSTIC IMAGING REPORT ---
TWO VIEW CHEST CLINICAL HISTORY: Dyspnea. Follow-up pneumonia. FINDINGS: PA and lateral chest radiographs are compared to study dated 06/26/2017 and correlated with chest CT dated 06/22/2017. The heart is enlarged and there is atherosclerotic calcification of the thoracic aorta. The pulmonary vasculature is noncongested. A layering right pleural effusion with associated consolidation is similar to previous. The left lung is grossly clear noting basilar atelectasis. There is no pneumothorax. The skeletal structures are osteopenic. Degenerative change and hyperkyphosis are noted in the thoracic spine. Cholecystectomy clips are present in the right upper quadrant. IMPRESSION: 1. Consolidative change at the right lung base and a right pleural effusion are similar in appearance to the 06/26/2017 examination. 2. Cardiomegaly without radiographic evidence of congestive failure. Electronically signed by: Tommy Cardona M.D. 06/30/2017 1:45 PM Dictated Date/Time: 06/30/2017 1:43 PM
[2017-06-30 16:27] LABS: PTT PATIENT 56.1 SECONDS (21.0-31.0)
--- NOTE | 2017-06-30 16:35 | PULMONARY PROGRESS NOTE ---
DATE: 06/30/2017 TIME: 04:10 p.m. SUBJECTIVE: The patient feels better today. She did not feel good yesterday, the day of her scope. She had some shortness of breath post-bronchoscopy. She does feel less tight and less wheezy today. She states she was able to walk to the bathroom today without too much difficulty. She has expectorated some phlegm today that was a little pinkish and also a little yellow. OBJECTIVE: GENERAL: The patient appeared comfortable at rest. VITAL SIGNS: Temperature is 36.5. She did not have any fevers post-bronchoscopy. Heart rate was 63 per minute. The rhythm is regular. Blood pressure 155/61. CHEST: Respiratory rate was 24 per minute, but it was not labored. There is very mild wheezing heard posteriorly. This was near the end expiration. Oxygen saturation was 94% on 3 liters. EXTREMITIES: Showed no cyanosis, clubbing or edema. Chest x-ray done today shows continued opacification of the lower one-third of the right lung. This may represent a combination of infiltrate and effusion. Dr. Duncan wants to ultrasound her back at least 1 more time. LABORATORY DATA: White count today is 12.3. Hemoglobin 12.7. Platelets 285,000. Blood sugar this morning was 104. Cultures from bronchoscopy are all pending. The preliminary bronchial washings shows light normal rubén. The AFB smear was negative. Fungal smear was negative. IMPRESSIONS: 1. Pneumonia, right lower lobe. 2. Atelectasis. 3. Right pleural effusion. 4. Asthma by history. 5. Influenza A. COMMENTS AND RECOMMENDATIONS: I think the patient is starting to feel better. She is not talking about wanting to go home rather than to rehabilitation. She still sounds abnormal and her x-ray is still quite abnormal. Would continue the prednisone 40 mg per day for now. She is still on levalbuterol q. 4 hours. Perhaps, would change this to q. 4 hours while awake, so she is not awakened at night. I explained to the patient that our goal is to ultimately get her prednisone dose down and to get her ambulating more. She states physical therapy has not been in today. We tried to get her ambulated every day, perhaps a couple of times.
[2017-06-30] MEDS: DIGOXIN 0.25 MG TAB PO SCH (21:13)
[2017-06-30] MEDS: GABAPENTIN 300 MG CAP PO SCH (21:13)
[2017-06-30] MEDS: LATANOPROST 0.005% OP SOLN 2.5 ML BTL OPB SCH (21:14)
[2017-06-30] MEDS: ATORVASTATIN 20 MG TAB PO SCH (21:14)
[2017-07-01] VITALS (9 sets, daily range): BP systolic 123–169; BP diastolic 69–82; PULSE 56–75; TEMP 36.5–36.8; O2SAT 92–95
[2017-07-01] MEDS: CLINDAMYCIN HCL 150 MG CAP PO SCH ×5 (00:17→23:28)
[2017-07-01] MEDS: HEPARIN 25,000 UNIT/500ML D5W 500 ML IV PRN (00:18)
[2017-07-01] MEDS: LEVALBUTEROL 1.25MG/0.5ML NEB INH SCH ×6 (03:20→23:05)
[2017-07-01] MEDS: IPRATROPIUM BROMIDE NEB SOLN 0.02% 2.5 ML VIAL INH SCH ×6 (03:20→23:05)
[2017-07-01] MEDS: GUAIFENESIN/CODEINE 100MG/10MG 5ML UDC PO PRN ×2 (04:12→23:29)
[2017-07-01] MEDS: LEVOTHYROXINE 75 MCG TAB PO SCH (06:01)
[2017-07-01 06:57] LABS: PTT PATIENT 56.2 SECONDS (21.0-31.0)
[2017-07-01] MEDS: POLYETHYLENE (MIRALAX) 17 GM PACK PO SCH (07:31)
[2017-07-01] MEDS: CYANOCOBALAMIN 500 MCG TAB (VIT B-12) PO SCH (07:31)
[2017-07-01] MEDS: FLECAINIDE ACETATE 100 MG TAB PO SCH ×2 (07:31→21:37)
[2017-07-01] MEDS: NIFEdipine 30 MG CR TAB PO SCH (07:32)
[2017-07-01] MEDS: METOPROLOL SUCC 50MG EXT REL TAB PO SCH (07:32)
[2017-07-01] MEDS: BENZONATATE 100MG CAP PO SCH ×3 (07:32→21:37)
[2017-07-01] MEDS: SENNA 8.6 MG TAB PO SCH (07:32)
[2017-07-01] MEDS: BUDESONIDE/FORMOTEROL FUMARATE 160/4.5 60 PUFFS/INHALER INH SCH ×2 (07:33→21:35)
[2017-07-01] MEDS: CALCIUM 600MG + VIT D 400 IU TAB PO SCH ×2 (07:33→21:37)
[2017-07-01] MEDS: FUROSEMIDE 40 MG TAB PO SCH (07:33)
[2017-07-01] MEDS: SODIUM CHLORIDE 7% 4 ML NEB INH SCH ×4 (07:35→19:43)
[2017-07-01] MEDS: PANTOprazole SOD 40 MG TAB PO SCH (07:36)
[2017-07-01] MEDS: INSULIN ASPART 100 UNITS/ML 3 ML PEN SC SCH ×4 (08:35→21:40)
--- NOTE | 2017-07-01 13:32 | PULMONARY PROGRESS NOTE ---
DATE: 07/01/2017 PROBLEM LIST: Includes: 1. Right lower lobe pneumonia. 2. Atelectasis. 3. Right pleural effusion. 4. Asthma by history. 5. Influenza A. SUBJECTIVE: The patient reports that she is feeling even better today than she was yesterday. She had bronchoscopy on June 29 and did have some fatigue and post-bronchoscopy shortness of breath. Yesterday, she was just feeling rundown and tired, today she is feeling better and is able to walk without significant shortness of breath. She did have an occasional cough with a little bit of yellow mucus. No blood in the mucus today. No chest heaviness or tightness. No chest pain. No palpitations. When questioned about her oxygen, the patient states that she does wear oxygen continuously at home. She states; however, that she will put it on if she is napping or if she gets out of breath with exertion. She denies any other difficulties. Appetite is normal. She has no difficulty with diarrhea, no difficulty with voiding. No swelling in her extremities. OBJECTIVE: GENERAL: The patient is a 71-year-old female sitting at bedside, in no acute distress. She is alert and oriented x3. Mood is good. Affect is good. VITAL SIGNS: Temp is 36.5, pulse 56, respirations 17, blood pressure is 123/71, pulse ox 92-94% on 3 liters. HEENT: Normocephalic, atraumatic. Pupils equal, round and reactive to light and accommodation. Extraocular movements are intact. [place] moist gingival and buccal mucosa. NECK: Supple. No mass. No adenopathy. No bruit. CHEST: Diminished. She did have faint expiratory wheeze, heard predominantly on the right. No rale or rhonchi noted. CARDIOVASCULAR: Regular rate and rhythm. There are no murmurs, gallops or rubs. ABDOMEN: Obese, soft, nontender. No guarding, rigidity or organomegaly. EXTREMITIES: No erythema or edema. DATA: Bronch washings are pending. No new imaging. IMPRESSION AND PLAN: This is a 71-year-old female with right lower lobe pneumonia with history of atelectasis, history of right pleural effusion, influenza A who was taken to suite and had bronchoscopy done on June [address] Duncan. At this point, the patient is doing better. She still is having some weakness and tiredness, but overall from a pulmonary perspective, she is improving. She is currently on 40 mg of prednisone daily and she is to continue this. She continue her aggressive pulmonary toilet as it is. On reviewing nurse' notes, the patient is being set up to go to [facility] when stable. I think at least from pulmonary standpoint, the patient would be able to go to [facility] at any time. QUINCY
--- NOTE | 2017-07-01 15:12 | Hospitalist Progress Note ---
Hospitalist Progress Note Date of Service Jul 01, 2017. (Helen Hernandez ., AIDA-C) Subjective Pt evaluation today including: conversation w/ patient, physical exam, chart review, lab review, review of studies, review of inpatient medication list Pain: None PO Intake: Tolerating PO diet Voiding: no voiding problems The patient reports feeling minimally better. The patient continues to complain of shortness of breath at rest and with exertion, productive cough and intermittent wheezing. She thinks that the coughing is better and less blood tinged. She states that she did ambulate down the [place] a bit yesterday and is motivated to mobilize more. The patient denies fevers, chills, sweats, chest pain, palpitations, claudication, nausea, vomiting, abdominal pain, dysuria, hematuria, urinary retention, paralysis, weakness, numbness and tingling. Additional Comments: See HPI for pertinent positives and negatives. All other systems reviewed and negative. (Helen Hernandez ., AIDA-C) Objective Vital Signs Date Time Temp Pulse Resp B/P (MAP) Pulse Ox O2 Delivery O2 Flow Rate FiO2 07/01/17 11:35 56 18 94 Nasal Cannula 3.0 07/01/17 08:00 Nasal Cannula 3.0 Humidified Oxygen 07/01/17 07:43 36.5 56 17 123/71 (88) 92 Nasal Cannula 3.0 Humidified Oxygen 07/01/17 07:35 75 18 94 Nasal Cannula 3.0 07/01/17 03:20 72 18 94 Nasal Cannula 3.0 07/01/17 00:00 Nasal Cannula 3.0 06/30/17 23:03 76 18 94 Nasal Cannula 3.0 06/30/17 22:53 36.8 62 18 144/67 (92) 95 3.0 06/30/17 21:13 68 06/30/17 19:16 72 18 94 Nasal Cannula 3.0 06/30/17 16:06 95 Nasal Cannula 3.0 06/30/17 15:30 63 16 94 Nasal Cannula 3.0 06/30/17 15:23 36.5 62 16 155/61 (92) 92 Nasal Cannula 3.0 (Helen Hernandez ., AIDA-C) Physical Exam Notes: General appearance: +Morbidly obese. Well-developed, well-nourished, no apparent distress Head: Normocephalic, atraumatic Eyes: Normal inspection, PERRL, EOMI ENT: Normal ENT inspection, hearing grossly normal, pharynx normal Neck: Supple, no JVD, trachea midline Respiratory/Chest: +Decreased breath sounds throughout with poor air movement. Less wheezing today. On 3L NC. No respiratory distress Cardiovascular: Regular rate & rhythm, no gallop, no murmur Abdomen/GI: Normal bowel sounds, non-tender, soft Extremities/Musculoskeletal: +1+ pitting edema lower extremities, R>L. Normal inspection, no calf tenderness Neurological/Psych: Alert, normal mood/affect, oriented x 3 Skin: Normal color, warm/dry, no rash (Helen Hernandez ., PA-C) Laboratory Results Last 24 Hours Test 06/30/17 16:00 06/30/17 16:44 06/30/17 20:32 07/01/17 06:09 Activated Partial Thromboplast Time 56.1 SECONDS 56.2 SECONDS Partial Thromboplastin Ratio 2.2 2.2 Bedside Glucose 128 mg/dl 165 mg/dl Test 07/01/17 07:57 07/01/17 11:50 Bedside Glucose 97 mg/dl 131 mg/dl (Helen Hernandez ., PA-C) Diagnostic Results Reviewed the following studies and agree with interpretation as follows: TWO VIEW CHEST CLINICAL HISTORY: Dyspnea. Follow-up pneumonia. FINDINGS: PA and lateral chest radiographs are compared to study dated 06/26/2017 and correlated with chest CT dated 06/22/2017. The heart is enlarged and there is atherosclerotic calcification of the thoracic aorta. The pulmonary vasculature is noncongested. A layering right pleural effusion with associated consolidation is similar to previous. The left lung is grossly clear noting basilar atelectasis. There is no pneumothorax. The skeletal structures are osteopenic. Degenerative change and hyperkyphosis are noted in the thoracic spine. Cholecystectomy clips are present in the right upper quadrant. IMPRESSION: 1. Consolidative change at the right lung base and a right pleural effusion are similar in appearance to the 06/26/2017 examination. 2. Cardiomegaly without radiographic evidence of congestive failure. (Helen Hernandez ., PA-C) Assessment and Plan 71 y/o female with a history of HTN, HLD, paroxysmal a-fib on chronic AC, COPD, asthma, hypothyroidism, neuropathy, and LISSETH who presents cough, wheezing and shortness of breath Acute hypoxic respiratory failure secondary to COPD exacerbation and influenza-- ongoing -Admit to telemetry. Stable, transferred to med/surg -Completed 5 day course of Tamiflu -Continue Prednisone 40 mg. Day 1 of 3, then taper by 10 mg q3d -D/C Mucinex, start Robitussin AC q6h prn cough. Continue Tessalon Perles 200 mg PO TID -Incentive spirometry. Add flutter valve -Pulmonology following, appreciate recs: Not enough fluid for thoracentesis -Bronchoscopy with minimal mucous plugs in right middle lobe and right lower lobe -Bronchial washing cultures pending. Fungal smear negative. Bronchial washings positive for staph aureus -D/C heparin as no thoracentesis, resume Xarelto -Sputum culture heavy normal rubén -Continue Symbicort 2 puffs inh BID -Atrovent/Xopenex nebs q4h RLL PNA possibly aspiration pneumonia, dysphagia--ongoing -CTA chest negative for PE but possible evidence of aspiration -Continue clindamycin 150 mg PO q6h. Day #6 -Esophageal x-ray suggests mild esophageal dysmotility -Speech therapy recommends dental soft, moist, slipper diet with thin liquids, aspiration precautions -Outpt GI f/u for possible EGD and/or barium swallow -Leukocytosis stable -CXR appears similar to previous -Immunoglobulin studies WNL Elevated troponin--resolved, now WNL -Likely secondary to demand ischemia due to above DM II--no recorded h/o DM, HgbA1c 6.6 on 06/21 -Insulin sliding scale -Check BSGs q ac and qhs HTN, HLD--stable -Continue nifedipine 30 mg PO qd, Toprol XL 100 mg PO qd, and Lipitor 20 mg PO qd Paroxysmal a-fib--stable, NSR -Continue digoxin 0.25 mg PO qd, flecainide 100 mg PO BID, metoprolol as above -Resume Xarelto Hypothyroidism -Continue Synthroid 75 mcg PO qd Neuropathy -Continue gabapentin 300 mg PO qd DVT prophylaxis -Xarelto Code Status -Level I, FULL RESUSCITATION STATUS (Helen Hernandez, PA-C) Supervising Note Dr. Matt I performed a history and physical examination on the patient. I reviewed above note and agree with it. I discussed plan with APC and patient. During my face to face encounter with the patient, I answered all of the patient's questions. (Gaudencio Matt M.D.)
[2017-07-01] MEDS: RIVAROXABAN 20 MG TAB PO SCH (16:46)
[2017-07-01] MEDS: DIGOXIN 0.25 MG TAB PO SCH (21:36)
[2017-07-01] MEDS: GABAPENTIN 300 MG CAP PO SCH (21:36)
[2017-07-01] MEDS: ATORVASTATIN 20 MG TAB PO SCH (21:37)
[2017-07-01] MEDS: LATANOPROST 0.005% OP SOLN 2.5 ML BTL OPB SCH (21:38)
[2017-07-02] VITALS (11 sets, daily range): BP systolic 139–151; BP diastolic 61–70; PULSE 56–64; TEMP 36.7; O2SAT 91–97
[2017-07-02] MEDS: IPRATROPIUM BROMIDE NEB SOLN 0.02% 2.5 ML VIAL INH SCH ×6 (03:27→23:02)
[2017-07-02] MEDS: LEVALBUTEROL 1.25MG/0.5ML NEB INH SCH ×6 (03:27→23:02)
[2017-07-02] MEDS: CLINDAMYCIN HCL 150 MG CAP PO SCH ×4 (05:41→23:48)
[2017-07-02] MEDS: LEVOTHYROXINE 75 MCG TAB PO SCH (05:41)
[2017-07-02 07:16] LABS: HEMOGLOBIN 11.1 g/dL (12.0-16.0); MEAN CELL VOLUME 90.7 fL (80-100); MEAN CORPUSCULAR HEMOGLOBIN 29.6 pg (25-34); MEAN CORPUSCULAR HGB CONC 32.6 g/dl (32-36); MEAN PLATELET VOLUME 9.6 fL (7.4-10.4); PLATELET COUNT 289 K/uL (130-400); RED CELL DISTRIBUTION WIDTH CV 14.5 % (11.5-14.5); RED CELL DISTRIBUTION WIDTH SD 48.2 fL (36.4-46.3); WHITE BLOOD COUNT 10.39 K/uL (4.8-10.8)
[2017-07-02 07:26] LABS: PTT PATIENT 24.4 SECONDS (21.0-31.0)
[2017-07-02] MEDS: SODIUM CHLORIDE 7% 4 ML NEB INH SCH ×4 (07:36→19:10)
[2017-07-02] MEDS: NIFEdipine 30 MG CR TAB PO SCH (08:28)
[2017-07-02] MEDS: FUROSEMIDE 40 MG TAB PO SCH (08:28)
[2017-07-02] MEDS: PANTOprazole SOD 40 MG TAB PO SCH (08:28)
[2017-07-02] MEDS: POLYETHYLENE (MIRALAX) 17 GM PACK PO SCH (08:29)
[2017-07-02] MEDS: FLECAINIDE ACETATE 100 MG TAB PO SCH ×2 (08:29→20:02)
[2017-07-02] MEDS: BENZONATATE 100MG CAP PO SCH ×3 (08:29→20:03)
[2017-07-02] MEDS: CALCIUM 600MG + VIT D 400 IU TAB PO SCH ×2 (08:29→20:03)
[2017-07-02] MEDS: CYANOCOBALAMIN 500 MCG TAB (VIT B-12) PO SCH (08:29)
[2017-07-02] MEDS: METOPROLOL SUCC 50MG EXT REL TAB PO SCH (08:30)
[2017-07-02] MEDS: BUDESONIDE/FORMOTEROL FUMARATE 160/4.5 60 PUFFS/INHALER INH SCH ×2 (08:30→19:57)
[2017-07-02] MEDS: SENNA 8.6 MG TAB PO SCH (08:30)
[2017-07-02] MEDS: INSULIN ASPART 100 UNITS/ML 3 ML PEN SC SCH ×4 (08:38→20:08)
--- NOTE | 2017-07-02 12:45 | PULMONARY PROGRESS NOTE ---
DATE: 07/02/2017 PROBLEM LIST: Includes: 1. Right lower lobe pneumonia. 2. Atelectasis. 3. Right pleural effusion. 4. History of asthma. 5. Influenza A. SUBJECTIVE: The patient continues to feel a little bit better every day. She states that she has slightly improved from yesterday. She still has a cough. She states that she still has some wheezing that comes and goes from time to time. She still has some shortness of breath. She states that there was a "super bug" in her mucus from her chest, she is wondering what that is about. She continues to have a little bit of shortness of breath with exertion. She feels that the nebulizers helping her. She feels that the rest of her medicines are helping her. She is sleeping well. She has no chest discomfort. Her appetite is normal. She has no nausea or vomiting. No diarrhea. OBJECTIVE: GENERAL: The patient is a 71-year-old female sitting up at bedside. She is alert and oriented x3. Mood is good. Affect is good. VITAL SIGNS: Temp 36.7, pulse 56, respirations 20, blood pressure is 151/67, and pulse ox is 96% on 3 liters. HEENT: Normocephalic, atraumatic. Pupils equal, round and reactive to light and accommodation. Extraocular movements are intact. [place] moist gingival and buccal mucosa. NECK: Short, thick, no mass, no adenopathy, no bruit noted. CHEST: The patient still does have some expiratory wheeze, some of which is coarse, mainly in the right lower area. No rale or rhonchi noted. CARDIOVASCULAR: Regular rate and rhythm. I did not appreciate any murmurs, gallops or rubs. ABDOMEN: Obese, soft, nontender. There is no guarding, rigidity or organomegaly. EXTREMITIES: She has no edema to trace edema bilaterally, no erythema, no cyanosis or clubbing noted. NEUROLOGIC: Cranial nerves II through XII are intact. No focal deficits noted. LABORATORY DATA: Shows a white count of 10,000, H&H of 11.1 and 34.0, platelet count 289,000. Bronch washings from the right lower lobe show a methicillin-resistant staph aureus. It is susceptible to clindamycin, rifampin, tetracycline, Bactrim and vancomycin. The patient is currently on clindamycin. IMPRESSION AND PLAN: This is a 71-year-old female who admitted with a right lower lobe pneumonia, looks like the patient has methicillin-resistant staph aureus which grew out of the bronch washings, currently she is on clindamycin. MRSA showing susceptibility to clindamycin, so for now, we will continue this, she has been on this since June 26 with what appears to be continued improvement. She currently has been transitioned over to prednisone orally, which is fine. I would recommend to keep her on 40 mg daily for now. Recommend to continue her nebulizer and pulmonary toilet q. 4 hours regularly. If not done already, she may benefit from an incentive spirometer and a flutter valve. We will reevaluate the patient in the morning. QUINCY
--- NOTE | 2017-07-02 15:21 | PULMONARY PROGRESS NOTE ---
DATE: 07/02/2017 ADDENDUM The patient's bronchoscopy washing grew out MRSA at this point. She is on clindamycin. I had a discussion with Dr. Duncan and it was decided to switch her to doxycycline, which will have better lung penetration than clindamycin as for the MRSA. Change will be made in the chart. MTDD
[2017-07-02] MEDS: RIVAROXABAN 20 MG TAB PO SCH (18:07)
[2017-07-02] MEDS: ATORVASTATIN 20 MG TAB PO SCH (19:58)
[2017-07-02] MEDS: LATANOPROST 0.005% OP SOLN 2.5 ML BTL OPB SCH (20:01)
[2017-07-02] MEDS: GABAPENTIN 300 MG CAP PO SCH (20:01)
[2017-07-02] MEDS: DIGOXIN 0.25 MG TAB PO SCH (20:01)
[2017-07-02] MEDS: DOXYCYCLINE HYCLATE 100 MG CAP PO SCH (20:05)
--- NOTE | 2017-07-02 22:55 | Progress Note ---
Subjective Date of Service: Jul 02, 2017. Subjective Pt evaluation today including: conversation w/ patient, physical exam Patient today feels moderately improved. Patient continues to have shortness of breath, but this a significant improvement from her last 24 hours. Patient reports wheezing less. Problem List Medical Problems: (1) Acute bronchitis Status: Acute (2) COPD exacerbation Status: Acute (3) COPD exacerbation Status: Acute (4) Elevated troponin Status: Acute (5) Hyponatremia Status: Acute (6) Hypoxia Status: Acute (7) Influenza A Status: Acute Review of Systems Constitutional: No fever, No chills ENT: No hearing loss Respiratory: + cough, + sputum, + shortness of breath Cardiac: No chest pain Abdomen: No pain Neurologic: No memory loss, No paralysis Heme: No abnormal bleeding/bruising Endo: No fatigue Skin: No rash, No itch All Other Systems: Reviewed and Negative Medications Current Inpatient Medications Medications (Trade) Dose Ordered Sig/Darlene Route Start Time Stop Time Status Last Admin Dose Admin Acetaminophen (Tylenol Tab) 650 mg Q4H PRN PO 06/15/17 19:15 07/15/17 19:14 06/30/17 06:10 650 MG Magnesium Hydroxide (Milk Of Magnesia Susp) 30 ml Q12H PRN PO 06/15/17 19:15 07/15/17 19:14 Ondansetron HCl (Zofran Inj) 4 mg Q6H PRN IV 06/15/17 19:15 07/15/17 19:14 Atorvastatin Calcium (Lipitor Tab) 20 mg QPM PO 06/15/17 21:00 07/15/17 20:59 07/02/17 19:58 20 MG Cyanocobalamin (Vitamin B-12 Tab) 500 mcg DAILY PO 06/16/17 09:00 07/16/17 08:59 07/03/17 07:38 500 MCG Digoxin (Lanoxin Tab) 0.25 mg QPM PO 06/15/17 21:00 07/15/17 20:59 07/02/17 20:01 0.25 MG Docusate Sodium (coLACE CAP) 100 mg DAILY PRN PO 06/15/17 19:30 07/15/17 19:29 06/17/17 05:22 100 MG Flecainide Acetate (Tambocor Tab) 100 mg Q12 PO 06/15/17 21:00 07/15/17 20:59 07/02/17 20:02 100 MG Furosemide (Lasix Tab) 40 mg DAILY PO 06/16/17 09:00 07/16/17 08:59 07/03/17 07:33 40 MG Latanoprost (Xalatan Oph Soln) 1 drops HS OPB 06/15/17 21:00 07/15/17 20:59 07/02/17 20:01 1 DROPS Levothyroxine Sodium (Synthroid Tab) 75 mcg DAILYBB PO 06/16/17 06:00 07/16/17 06:59 07/03/17 06:30 75 MCG Metoprolol Succinate (Toprol Xl Tab) 100 mg DAILY PO 06/16/17 09:00 07/16/17 08:59 07/03/17 07:37 100 MG Pantoprazole Sodium (Protonix Tab) 40 mg DAILY PO 06/16/17 09:00 07/16/17 08:59 07/03/17 07:35 40 MG Artificial Tears (Artificial Tears) 2 drops QID PRN OPB 06/15/17 19:30 07/15/17 19:29 06/16/17 10:03 2 DROPS Calcium/Vitamin D (Caltrate Plus Tab) 1 tab BID PO 06/15/17 21:00 07/15/17 20:59 07/03/17 07:33 1 TAB Miscellaneous Information (Order Awaiting Action) 1 ea QS N/A 06/16/17 00:00 07/16/17 00:00 Gabapentin (Neurontin Cap) 300 mg HS PO 06/15/17 22:00 07/15/17 21:59 07/02/17 20:01 300 MG Ipratropium [place] (Atrovent 0.02% 0.5MG/2.5ML Neb) 0.5 mg Q4R INH 06/16/17 16:00 07/16/17 15:59 07/03/17 07:43 0.5 MG Nifedipine (Procardia Xl Tab) 30 mg QAM PO 06/20/17 09:00 07/20/17 08:59 07/03/17 07:39 30 MG Benzonatate (Tessalon Perles Cap) 200 mg TID PO 06/19/17 21:00 07/16/17 13:59 07/03/17 07:36 200 MG Codeine Phosphate/ Guaifenesin (Robitussin-AC Sugar Free Syrup) 5 ml Q6H PRN PO 06/21/17 14:15 07/21/17 14:14 07/01/17 23:29 5 ML Budesonide/ Formoterol Fumarate (Symbicort 160/ 4.5 Inh) 2 puffs BID INH 06/21/17 21:00 07/21/17 20:59 07/03/17 07:32 2 PUFFS Glucose (Glucose 40% Gel) 15-30 GRAMS 15 GRAMS... UD PRN PO 06/21/17 14:30 07/21/17 14:29 Glucose (Glucose Chew Tab) 4-8 Tablets 4 Tabl... UD PRN PO 06/21/17 14:30 07/21/17 14:29 Dextrose (Dextrose 50% 50ML Syringe) 25-50ML OF 50% DW IV FOR... UD PRN IV 06/21/17 14:30 07/21/17 14:29 Glucagon (Glucagon Inj) 1 mg UD PRN SQ 06/21/17 14:30 07/21/17 14:29 Insulin Aspart (novoLOG ASPART) SLIDING SCALE G... ACHS SC 06/21/17 16:30 07/21/17 16:29 07/02/17 18:06 6 UNITS Menthol (Nice Dez) 1 dez PRN PRN DEZ 06/22/17 05:00 07/22/17 04:59 Nitroglycerin (Nitrostat Tab) 0.4 mg PRN PRN SL 06/22/17 08:00 07/22/17 07:59 06/22/17 08:09 0.4 MG Polyethylene (Miralax Powder Packet) 17 gm DAILY PO 06/22/17 10:30 07/15/17 19:14 07/03/17 07:34 17 GM Senna (Senokot Tab) 17.2 mg QAM PO 06/22/17 10:30 07/22/17 10:29 07/03/17 07:35 17.2 MG Sodium Chloride (Sodium Chloride 7% Neb Solution) 4 ml QIDR INH 06/23/17 20:00 07/23/17 19:59 07/03/17 07:43 4 ML Levalbuterol (Xopenex 1.25MG/ 0.5ML Neb) 1.25 mg Q4R INH 06/24/17 16:00 07/24/17 15:59 07/03/17 07:44 1.25 MG Oxycodone HCl (Roxicodone Immediate Rel Tab) 10 mg Q6 PRN PO 06/26/17 16:00 07/10/17 15:59 06/29/17 15:08 10 MG Prednisone (PredniSONE TAB) 40 mg DAILY PO 07/01/17 08:00 07/03/17 08:01 07/03/17 07:34 40 MG Rivaroxaban (Xarelto Tab) 20 mg QDD PO 07/01/17 17:00 07/31/17 16:59 07/02/17 18:07 20 MG Doxycycline Hyclate (Vibramycin Cap) 100 mg BID PO 07/02/17 20:00 07/09/17 19:59 07/03/17 07:37 100 MG Objective Vital Signs Date Time Temp Pulse Resp B/P (MAP) Pulse Ox O2 Delivery O2 Flow Rate FiO2 07/02/17 20:10 60 150/69 (96) 07/02/17 20:01 60 07/02/17 19:12 58 18 97 Nasal Cannula 3.0 07/02/17 16:19 36.7 59 22 139/70 (93) 91 Nasal Cannula 3.0 07/02/17 16:00 Nasal Cannula 3.0 07/02/17 15:41 62 18 94 Nasal Cannula 3.0 07/02/17 11:04 58 18 95 Nasal Cannula 3.0 07/02/17 08:20 64 07/02/17 08:00 Nasal Cannula 3.0 07/02/17 07:39 59 18 96 Nasal Cannula 3.0 07/02/17 07:27 36.7 56 20 151/67 (95) 96 Nasal Cannula 3.0 07/02/17 03:27 64 18 95 Nasal Cannula 3.0 07/02/17 00:00 Nasal Cannula 3.0 07/01/17 23:32 36.7 61 18 149/69 (95) 95 07/01/17 23:05 68 18 95 Nasal Cannula 3.0 Physical Exam Comments: General appearance: +Morbidly obese. Well-developed, well-nourished, no apparent distress Head: Normocephalic, atraumatic Eyes: Normal inspection, PERRL, EOMI ENT: Normal ENT inspection, hearing grossly normal, pharynx normal Neck: Supple, no JVD, trachea midline Respiratory/Chest: Improved deep inspiration, less coughing during exam. No wheezing, mildly tight breath sounds Cardiovascular: Regular rate & rhythm, no gallop, no murmur Abdomen/GI: Normal bowel sounds, non-tender, soft Extremities/Musculoskeletal: +1+ pitting edema lower extremities, R>L. Normal inspection, no calf tenderness Neurological/Psych: Alert, normal mood/affect, oriented x 3 Skin: Normal color, warm/dry, no rash Laboratory Results Last 24 Hours Test 07/02/17 06:49 07/02/17 07:45 07/02/17 11:43 07/02/17 17:19 White Blood Count 10.39 K/uL Red Blood Count 3.75 M/uL Hemoglobin 11.1 g/dL Hematocrit 34.0 % Mean Corpuscular Volume 90.7 fL Mean Corpuscular Hemoglobin 29.6 pg Mean Corpuscular Hemoglobin Concent 32.6 g/dl RDW Standard Deviation 48.2 fL RDW Coefficient of Variation 14.5 % Platelet Count 289 K/uL Mean Platelet Volume 9.6 fL Activated Partial Thromboplast Time 24.4 SECONDS Partial Thromboplastin Ratio 0.9 Bedside Glucose 97 mg/dl 190 mg/dl 136 mg/dl Test 07/02/17 20:07 Bedside Glucose 122 mg/dl Assessment and Plan 71 y/o female with a history of HTN, HLD, paroxysmal a-fib on chronic AC, COPD, asthma, hypothyroidism, neuropathy, and LISSETH who presents cough, wheezing and shortness of breath Acute hypoxic respiratory failure secondary to COPD exacerbation and influenza-- ongoing -Admit to telemetry. Stable, transferred to med/surg -Completed 5 day course of Tamiflu -Continue Prednisone 40 mg. Day 2 of 3, then taper by 10 mg q3d -D/C Mucinex, start Robitussin AC q6h prn cough. Continue Tessalon Perles 200 mg PO TID -Incentive spirometry. Add flutter valve -Patient reports doing incentive spirometry more. -Pulmonology following, appreciate recs: Not enough fluid for thoracentesis -Bronchoscopy with minimal mucous plugs in right middle lobe and right lower lobe -Bronchial washing cultures pending. Fungal smear negative. Bronchial washings positive for MRSA -On clindamycin, however will switch to doxycycline due to better lung penetration. -D/C heparin as no thoracentesis, resume Xarelto -Sputum culture heavy normal rubén -Continue Symbicort 2 puffs inh BID -Atrovent/Xopenex nebs q4h RLL PNA possibly aspiration pneumonia, dysphagia--ongoing -CTA chest negative for PE but possible evidence of aspiration -Continue clindamycin 150 mg PO q6h. Day #7 -switched to doxycycline as noted above -Esophageal x-ray suggests mild esophageal dysmotility -Speech therapy recommends dental soft, moist, slipper diet with thin liquids, aspiration precautions -Outpt GI f/u for possible EGD and/or barium swallow -Leukocytosis stable -CXR appears similar to previous -Immunoglobulin studies WNL Elevated troponin--resolved, now WNL -Likely secondary to demand ischemia due to above DM II--no recorded h/o DM, HgbA1c 6.6 on 06/21 -Insulin sliding scale -Check BSGs q ac and qhs HTN, HLD--stable -Continue nifedipine 30 mg PO qd, Toprol XL 100 mg PO qd, and Lipitor 20 mg PO qd Paroxysmal a-fib--stable, NSR -Continue digoxin 0.25 mg PO qd, flecainide 100 mg PO BID, metoprolol as above -Resume Xarelto Hypothyroidism -Continue Synthroid 75 mcg PO qd Neuropathy -Continue gabapentin 300 mg PO qd DVT prophylaxis -Xarelto Code Status -Level I, FULL RESUSCITATION STATUS Continued [facility] stay due to: ambulation difficulties, multiple IV medications needed, other (worsening chest symptoms ) Discharge planning: home
[2017-07-03] VITALS (10 sets, daily range): BP systolic 136–152; BP diastolic 63–65; PULSE 56–77; TEMP 36.4–36.8; O2SAT 91–95
[2017-07-03] MEDS: IPRATROPIUM BROMIDE NEB SOLN 0.02% 2.5 ML VIAL INH SCH ×7 (03:27→23:11)
[2017-07-03] MEDS: LEVALBUTEROL 1.25MG/0.5ML NEB INH SCH ×7 (03:27→23:11)
[2017-07-03] MEDS: LEVOTHYROXINE 75 MCG TAB PO SCH (06:30)
[2017-07-03] MEDS: BUDESONIDE/FORMOTEROL FUMARATE 160/4.5 60 PUFFS/INHALER INH SCH ×2 (07:32→20:22)
[2017-07-03] MEDS: CALCIUM 600MG + VIT D 400 IU TAB PO SCH ×2 (07:33→20:24)
[2017-07-03] MEDS: FUROSEMIDE 40 MG TAB PO SCH (07:33)
[2017-07-03] MEDS: POLYETHYLENE (MIRALAX) 17 GM PACK PO SCH (07:34)
[2017-07-03] MEDS: SENNA 8.6 MG TAB PO SCH (07:35)
[2017-07-03] MEDS: PANTOprazole SOD 40 MG TAB PO SCH (07:35)
[2017-07-03] MEDS: BENZONATATE 100MG CAP PO SCH ×3 (07:36→20:25)
[2017-07-03] MEDS: METOPROLOL SUCC 50MG EXT REL TAB PO SCH ×2 (07:37→08:00)
[2017-07-03] MEDS: DOXYCYCLINE HYCLATE 100 MG CAP PO SCH ×2 (07:37→20:25)
[2017-07-03] MEDS: CYANOCOBALAMIN 500 MCG TAB (VIT B-12) PO SCH (07:38)
[2017-07-03] MEDS: NIFEdipine 30 MG CR TAB PO SCH (07:39)
[2017-07-03] MEDS: SODIUM CHLORIDE 7% 4 ML NEB INH SCH ×4 (07:43→18:59)
[2017-07-03 09:06] LABS: PTT PATIENT 25.2 SECONDS (21.0-31.0)
[2017-07-03] MEDS: FLECAINIDE ACETATE 100 MG TAB PO SCH ×2 (09:38→20:26)
[2017-07-03] MEDS: INSULIN ASPART 100 UNITS/ML 3 ML PEN SC SCH ×4 (09:44→20:23)
--- NOTE | 2017-07-03 09:51 | PULMONARY PROGRESS NOTE ---
DATE: 07/03/2017 TIME: 9:00 a.m. SUBJECTIVE: The patient continues to feel better. She feels stronger. Her cough is less. She states she is still bringing up small amount of bloody mucus. Her degree of shortness of breath is much improved. Her strength is improving. OBJECTIVE: GENERAL: The patient appears comfortable. She was in no distress at rest. VITAL SIGNS: Temperature 36.8. HEENT: She has not had any fevers. HEART: Heart rate is 58 per minute. Blood pressure is 152/63. LUNGS: Auscultation of the lung brown on the right reveals tubular breath sounds in the right lower one half. CHEST: Respiratory rate is 20. Saturation was 93% on 2 liters. EXTREMITIES: Showed no cyanosis, clubbing or edema. IMPRESSIONS: 1. Right lower lobe pneumonia secondary to methicillin-resistant Staphylococcus aureus. 2. Atelectasis. 3. Right pleural effusion. 4. Asthma by history. 5. Influenza A. COMMENTS AND RECOMMENDATIONS: Clinically, the patient is doing well. Her last x-ray was 06/30/2017. That was still markedly abnormal. We will repeat another for tomorrow morning. Would continue with her other medicines. She states she is tentatively going to [facility] when everything has squared away.
--- NOTE | 2017-07-03 10:26 | Hospitalist Progress Note ---
Hospitalist Progress Note Date of Service Jul 03, 2017. (Helen Hernandez .ULISES) Subjective Pt evaluation today including: conversation w/ patient, physical exam, chart review, lab review, review of inpatient medication list Pain: None PO Intake: Tolerating PO diet Voiding: no voiding problems Patient reports feeling better. She denies any shortness of breath currently at rest. She still does have dyspnea on exertion, but this is improving. She states that her productive cough and wheezing continue to improve. The patient denies fevers, chills, sweats, chest pain, palpitations, claudication, nausea, vomiting, abdominal pain, dysuria, hematuria, urinary retention, paralysis, weakness, numbness and tingling. Additional Comments: See HPI for pertinent positives and negatives. All other systems reviewed and negative. (Helen Hernandez ., ULISES) Objective Vital Signs Date Time Temp Pulse Resp B/P (MAP) Pulse Ox O2 Delivery O2 Flow Rate FiO2 07/03/17 07:50 36.8 58 20 152/63 (92) 93 Nasal Cannula 2.0 07/03/17 07:45 93 Nasal Cannula 2.0 07/03/17 07:44 56 16 93 Nasal Cannula 2.0 07/03/17 00:00 95 Nasal Cannula 2.0 07/02/17 23:35 36.7 60 20 145/61 (89) 93 Nasal Cannula 2.0 07/02/17 23:03 63 16 95 Nasal Cannula 2.0 07/02/17 20:10 60 150/69 (96) 07/02/17 20:01 60 07/02/17 19:12 58 18 97 Nasal Cannula 3.0 07/02/17 16:19 36.7 59 22 139/70 (93) 91 Nasal Cannula 3.0 07/02/17 16:00 Nasal Cannula 3.0 07/02/17 15:41 62 18 94 Nasal Cannula 3.0 07/02/17 11:04 58 18 95 Nasal Cannula 3.0 (Helen Hernandez PA-C) Physical Exam Notes: General appearance: +Morbidly obese. Well-developed, well-nourished, no apparent distress Head: Normocephalic, atraumatic Eyes: Normal inspection, PERRL, EOMI ENT: Normal ENT inspection, hearing grossly normal, pharynx normal Neck: Supple, no JVD, trachea midline Respiratory/Chest: +Decreased breath sounds, improved. Minimal wheezing. On 2L NC. No respiratory distress Cardiovascular: Regular rate & rhythm, no gallop, no murmur Abdomen/GI: Normal bowel sounds, non-tender, soft Extremities/Musculoskeletal: +Trace pitting edema lower extremities, R>L. Normal inspection, no calf tenderness Neurological/Psych: Alert, normal mood/affect, oriented x 3 Skin: Normal color, warm/dry, no rash (Helen Hernandez ., ULISES) Laboratory Results Last 24 Hours Test 07/02/17 11:43 07/02/17 17:19 07/02/17 20:07 07/03/17 08:03 Bedside Glucose 190 mg/dl 136 mg/dl 122 mg/dl Activated Partial Thromboplast Time 25.2 SECONDS Partial Thromboplastin Ratio 1.0 (Helen Hernandez, DUSTINC) Assessment and Plan 71 y/o female with a history of HTN, HLD, paroxysmal a-fib on chronic AC, COPD, asthma, hypothyroidism, neuropathy, and LISSETH who presents cough, wheezing and shortness of breath Acute hypoxic respiratory failure secondary to COPD exacerbation and influenza-- improving -Admit to telemetry. Stable, transferred to med/surg -Completed 5 day course of Tamiflu -Prednisone 40 mg PO qd, day 3 of 3. Will decrease to 30 mg PO qd starting 07/04 -D/C Mucinex, start Robitussin AC q6h prn cough. Continue Tessalon Perles 200 mg PO TID -Incentive spirometry. Add flutter valve -Pulmonology following, appreciate recs: Will recheck CXR tomorrow morning. Continue current treatment -Bronchoscopy with minimal mucous plugs in right middle lobe and right lower lobe -Bronchial washing cultures pending. Fungal smear negative. Bronchial washings positive for MRSA -D/C heparin as no thoracentesis, resume Xarelto -Sputum culture heavy normal rubén -Continue Symbicort 2 puffs inh BID -Atrovent/Xopenex nebs q4h RLL PNA possibly aspiration pneumonia, dysphagia--improving -CTA chest negative for PE but possible evidence of aspiration -Clindamycin changed to doxycycline 100 mg PO BID for better lung penetration/ MRSA coverage per pulm recs. Day #2 -Esophageal x-ray suggests mild esophageal dysmotility -Speech therapy recommends dental soft, moist, slipper diet with thin liquids, aspiration precautions -Outpt GI f/u for possible EGD and/or barium swallow -Leukocytosis improving, WBC 10.39 on 07/03, down from 12.30 -CXR appears similar to previous -Immunoglobulin studies WNL Elevated troponin--resolved, now WNL -Likely secondary to demand ischemia due to above DM II--no recorded h/o DM, HgbA1c 6.6 on 06/21 -Insulin sliding scale -Check BSGs q ac and qhs HTN, HLD--stable -Continue nifedipine 30 mg PO qd, Toprol XL 100 mg PO qd, and Lipitor 20 mg PO qd Paroxysmal a-fib--stable, NSR -Continue digoxin 0.25 mg PO qd, flecainide 100 mg PO BID, metoprolol as above -Resume Xarelto Hypothyroidism -Continue Synthroid 75 mcg PO qd Neuropathy -Continue gabapentin 300 mg PO qd DVT prophylaxis -Xarelto Code Status -Level I, FULL RESUSCITATION STATUS Dispo -Accepted to [facility] when medically stable (Helen Hernandez, PA-C) Supervising Note Dr. Matt I performed a history and physical examination on the patient. I reviewed above note and agree with it. I discussed plan with APC and patient. During my face to face encounter with the patient, I answered all of the patient's questions. (Gaudencio Matt M.D.)
[2017-07-03] MEDS: RIVAROXABAN 20 MG TAB PO SCH (18:41)
[2017-07-03] MEDS: GABAPENTIN 300 MG CAP PO SCH (20:23)
[2017-07-03] MEDS: DIGOXIN 0.25 MG TAB PO SCH (20:24)
[2017-07-03] MEDS: ATORVASTATIN 20 MG TAB PO SCH (20:24)
[2017-07-03] MEDS: LATANOPROST 0.005% OP SOLN 2.5 ML BTL OPB SCH (20:26)
--- NOTE | 2017-07-03 21:42 | Progress Note ---
Subjective Date of Service: Jul 03, 2017. Problem List Medical Problems: (1) Acute bronchitis Status: Acute (2) COPD exacerbation Status: Acute (3) COPD exacerbation Status: Acute (4) Elevated troponin Status: Acute (5) Hyponatremia Status: Acute (6) Hypoxia Status: Acute (7) Influenza A Status: Acute Objective Vital Signs Date Time Temp Pulse Resp B/P (MAP) Pulse Ox O2 Delivery O2 Flow Rate FiO2 07/03/17 20:24 68 07/03/17 19:01 69 16 95 Nasal Cannula 2.0 07/03/17 16:23 36.4 77 18 136/65 (88) 91 Nasal Cannula 2.0 07/03/17 15:30 94 Nasal Cannula 2.0 07/03/17 14:26 72 16 94 Nasal Cannula 2.0 07/03/17 11:32 58 16 94 Nasal Cannula 2.0 07/03/17 07:50 36.8 58 20 152/63 (92) 93 Nasal Cannula 2.0 07/03/17 07:45 93 Nasal Cannula 2.0 07/03/17 07:44 56 16 93 Nasal Cannula 2.0 07/03/17 00:00 95 Nasal Cannula 2.0 07/02/17 23:35 36.7 60 20 145/61 (89) 93 Nasal Cannula 2.0 07/02/17 23:03 63 16 95 Nasal Cannula 2.0 Laboratory Results Last 24 Hours Test 07/03/17 07:38 07/03/17 08:03 07/03/17 12:00 07/03/17 16:51 Bedside Glucose 100 mg/dl 149 mg/dl 189 mg/dl Activated Partial Thromboplast Time 25.2 SECONDS Partial Thromboplastin Ratio 1.0 Assessment and Plan 71 y/o female with a history of HTN, HLD, paroxysmal a-fib on chronic AC, COPD, asthma, hypothyroidism, neuropathy, and LISSETH who presents cough, wheezing and shortness of breath Acute hypoxic respiratory failure secondary to COPD exacerbation and influenza-- ongoing -Admit to telemetry. Stable, transferred to med/surg -Completed 5 day course of Tamiflu -Continue Prednisone 40 mg. Day 2 of 3, then taper by 10 mg q3d -D/C Mucinex, start Robitussin AC q6h prn cough. Continue Tessalon Perles 200 mg PO TID -Incentive spirometry. Add flutter valve -Patient reports doing incentive spirometry more. -Pulmonology following, appreciate recs: Not enough fluid for thoracentesis -Bronchoscopy with minimal mucous plugs in right middle lobe and right lower lobe -Bronchial washing cultures pending. Fungal smear negative. Bronchial washings positive for MRSA -On clindamycin, however will switch to doxycycline due to better lung penetration. -D/C heparin as no thoracentesis, resume Xarelto -Sputum culture heavy normal rubén -Continue Symbicort 2 puffs inh BID -Atrovent/Xopenex nebs q4h RLL PNA possibly aspiration pneumonia, dysphagia--ongoing -CTA chest negative for PE but possible evidence of aspiration -Continue clindamycin 150 mg PO q6h. Day #7 -switched to doxycycline as noted above -Esophageal x-ray suggests mild esophageal dysmotility -Speech therapy recommends dental soft, moist, slipper diet with thin liquids, aspiration precautions -Outpt GI f/u for possible EGD and/or barium swallow -Leukocytosis stable -CXR appears similar to previous -Immunoglobulin studies WNL Elevated troponin--resolved, now WNL -Likely secondary to demand ischemia due to above DM II--no recorded h/o DM, HgbA1c 6.6 on 06/21 -Insulin sliding scale -Check BSGs q ac and qhs HTN, HLD--stable -Continue nifedipine 30 mg PO qd, Toprol XL 100 mg PO qd, and Lipitor 20 mg PO qd Paroxysmal a-fib--stable, NSR -Continue digoxin 0.25 mg PO qd, flecainide 100 mg PO BID, metoprolol as above -Resume Xarelto Hypothyroidism -Continue Synthroid 75 mcg PO qd Neuropathy -Continue gabapentin 300 mg PO qd DVT prophylaxis -Xarelto Code Status -Level I, FULL RESUSCITATION STATUS Continued [facility] stay due to: ambulation difficulties, multiple IV medications needed, other (worsening chest symptoms ) Discharge planning: home
[2017-07-04] VITALS (12 sets, daily range): BP systolic 116–138; BP diastolic 57–69; PULSE 56–73; TEMP 36.5–36.8; O2SAT 92–97
[2017-07-04] MEDS: IPRATROPIUM BROMIDE NEB SOLN 0.02% 2.5 ML VIAL INH SCH ×6 (03:25→23:23)
[2017-07-04] MEDS: LEVALBUTEROL 1.25MG/0.5ML NEB INH SCH ×6 (03:25→23:23)
[2017-07-04] MEDS: LEVOTHYROXINE 75 MCG TAB PO SCH (06:16)
[2017-07-04] MEDS: SODIUM CHLORIDE 7% 4 ML NEB INH SCH ×4 (06:57→18:53)
[2017-07-04 07:23] LABS: HEMATOCRIT 33.6 % (37-47); MEAN CELL VOLUME 89.8 fL (80-100); MEAN CORPUSCULAR HEMOGLOBIN 29.4 pg (25-34); MEAN CORPUSCULAR HGB CONC 32.7 g/dl (32-36); MEAN PLATELET VOLUME 9.5 fL (7.4-10.4); PLATELET COUNT 295 K/uL (130-400); RED CELL DISTRIBUTION WIDTH CV 14.5 % (11.5-14.5); RED CELL DISTRIBUTION WIDTH SD 47.4 fL (36.4-46.3); WHITE BLOOD COUNT 10.52 K/uL (4.8-10.8)
[2017-07-04 07:34] LABS: PTT PATIENT 26.6 SECONDS (21.0-31.0)
[2017-07-04] MEDS: SENNA 8.6 MG TAB PO SCH (08:04)
[2017-07-04] MEDS: METOPROLOL SUCC 50MG EXT REL TAB PO SCH (08:04)
[2017-07-04] MEDS: CALCIUM 600MG + VIT D 400 IU TAB PO SCH ×2 (08:04→20:11)
[2017-07-04] MEDS: DOXYCYCLINE HYCLATE 100 MG CAP PO SCH ×2 (08:04→20:11)
[2017-07-04] MEDS: BUDESONIDE/FORMOTEROL FUMARATE 160/4.5 60 PUFFS/INHALER INH SCH ×2 (08:04→20:09)
[2017-07-04] MEDS: NIFEdipine 30 MG CR TAB PO SCH (08:05)
[2017-07-04] MEDS: FLECAINIDE ACETATE 100 MG TAB PO SCH ×2 (08:05→21:15)
[2017-07-04] MEDS: PANTOprazole SOD 40 MG TAB PO SCH (08:05)
[2017-07-04] MEDS: CYANOCOBALAMIN 500 MCG TAB (VIT B-12) PO SCH (08:05)
[2017-07-04] MEDS: POLYETHYLENE (MIRALAX) 17 GM PACK PO SCH (08:06)
[2017-07-04] MEDS: FUROSEMIDE 40 MG TAB PO SCH (08:06)
[2017-07-04] MEDS: BENZONATATE 100MG CAP PO SCH ×3 (08:06→20:11)
[2017-07-04] MEDS: INSULIN ASPART 100 UNITS/ML 3 ML PEN SC SCH ×4 (08:38→21:33)
--- NOTE | 2017-07-04 09:16 | DIAGNOSTIC IMAGING REPORT ---
CHEST 2 VIEWS ROUTINE CLINICAL HISTORY: 71 years-old Female presenting with f/u pneumonia. TECHNIQUE: PA and lateral views of the chest were obtained. COMPARISON: 06/30/2017. FINDINGS: Atherosclerosis of aortic arch. Cardiac silhouette enlarged. Persistent opacity at the right lung base containing more focal nodular regions of focal consolidation. Small right pleural effusion remains evident. Left lung and pleural space clear. No pneumothorax. Degenerative changes of the thoracic spine. Upper abdomen normal. IMPRESSION: 1. Persistent, unchanged nodular consolidation at the right lung base system with pneumonia. Associated parapneumonic effusion. 2. Cardiomegaly. Electronically signed by: Cruz Chaudhary M.D. 07/04/2017 9:14 AM Dictated Date/Time: 07/04/2017 9:12 AM
--- NOTE | 2017-07-04 11:06 | PULMONARY PROGRESS NOTE ---
DATE: 07/04/2017 TIME: 10:30 a.m. SUBJECTIVE: The patient continues to feel better. She has no specific complaints today. OBJECTIVE: GENERAL: The patient is comfortable at rest. She remains afebrile. VITAL SIGNS: Stable. IMAGING STUDIES: Chest x-ray done today shows no change in the opacification of the right lower lung field compared with prior study done on 06/30/2017. This would be persistent consolidation, atelectasis, and/or underlying effusion. PLAN: Clinically, the patient is stable. She is getting treatment for the MRSA from bronchial washings. From a pulmonary perspective, we will sign off. She should ultimately have a followup x-ray to be sure that there has been resolution of the right lower lobe infiltrates.
[2017-07-04] MEDS: RIVAROXABAN 20 MG TAB PO SCH (17:19)
[2017-07-04] MEDS: DIGOXIN 0.25 MG TAB PO SCH (21:14)
[2017-07-04] MEDS: ATORVASTATIN 20 MG TAB PO SCH (21:15)
[2017-07-04] MEDS: LATANOPROST 0.005% OP SOLN 2.5 ML BTL OPB SCH (21:34)
[2017-07-04] MEDS: GABAPENTIN 300 MG CAP PO SCH (21:34)
[2017-07-05] VITALS (14 sets, daily range): BP systolic 115–131; BP diastolic 58–68; PULSE 48–62; TEMP 36.4–36.7; O2SAT 91–98
[2017-07-05] MEDS: IPRATROPIUM BROMIDE NEB SOLN 0.02% 2.5 ML VIAL INH SCH ×6 (03:25→23:01)
[2017-07-05] MEDS: LEVALBUTEROL 1.25MG/0.5ML NEB INH SCH ×6 (03:25→23:01)
[2017-07-05] MEDS: LEVOTHYROXINE 75 MCG TAB PO SCH (06:24)
[2017-07-05 07:04] LABS: PTT PATIENT 25.7 SECONDS (21.0-31.0)
[2017-07-05] MEDS: SODIUM CHLORIDE 7% 4 ML NEB INH SCH ×2 (07:10→18:51)
--- NOTE | 2017-07-05 07:13 | Progress Note ---
Subjective Date of Service: Jul 04, 2017. Subjective Pt evaluation today including: conversation w/ patient, physical exam Patient reports feeling signifcantly better today. Patient states she still has some fatigue, but it is much less today. She states she has ambulated around the [place] with the nurse. Nurse states that she becomes hypoxic in the 85-90 range when she ambulates Problem List Medical Problems: (1) Acute bronchitis Status: Acute (2) COPD exacerbation Status: Acute (3) COPD exacerbation Status: Acute (4) Elevated troponin Status: Acute (5) Hyponatremia Status: Acute (6) Hypoxia Status: Acute (7) Influenza A Status: Acute Review of Systems Constitutional: No fever, No chills Eyes: No worsening of vision ENT: No hearing loss, No unusual epistaxis Respiratory: + cough, + shortness of breath Cardiac: No chest pain, No orthopnea Abdomen: No pain, No nausea Musculoskeletal: No joint pain Female : No dysuria, No urinary frequency Heme: No abnormal bleeding/bruising Endo: No fatigue Skin: No rash, No itch All Other Systems: Reviewed and Negative Medications Current Inpatient Medications Medications (Trade) Dose Ordered Sig/Darlene Route Start Time Stop Time Status Last Admin Dose Admin Acetaminophen (Tylenol Tab) 650 mg Q4H PRN PO 06/15/17 19:15 07/15/17 19:14 06/30/17 06:10 650 MG Magnesium Hydroxide (Milk Of Magnesia Susp) 30 ml Q12H PRN PO 06/15/17 19:15 07/15/17 19:14 Ondansetron HCl (Zofran Inj) 4 mg Q6H PRN IV 06/15/17 19:15 07/15/17 19:14 Atorvastatin Calcium (Lipitor Tab) 20 mg QPM PO 06/15/17 21:00 07/15/17 20:59 07/04/17 21:15 20 MG Cyanocobalamin (Vitamin B-12 Tab) 500 mcg DAILY PO 06/16/17 09:00 07/16/17 08:59 07/04/17 08:05 500 MCG Digoxin (Lanoxin Tab) 0.25 mg QPM PO 06/15/17 21:00 07/15/17 20:59 07/04/17 21:14 0.25 MG Docusate Sodium (coLACE CAP) 100 mg DAILY PRN PO 06/15/17 19:30 2/15/18 19:29 06/17/17 05:22 100 MG Flecainide Acetate (Tambocor Tab) 100 mg Q12 PO 06/15/17 21:00 07/15/17 20:59 07/04/17 21:15 100 MG Furosemide (Lasix Tab) 40 mg DAILY PO 06/16/17 09:00 07/16/17 08:59 07/04/17 08:06 40 MG Latanoprost (Xalatan Oph Soln) 1 drops HS OPB 06/15/17 21:00 07/15/17 20:59 07/04/17 21:34 1 DROPS Levothyroxine Sodium (Synthroid Tab) 75 mcg DAILYBB PO 06/16/17 06:00 07/16/17 06:59 07/05/17 06:24 75 MCG Metoprolol Succinate (Toprol Xl Tab) 100 mg DAILY PO 06/16/17 09:00 07/16/17 08:59 07/04/17 08:04 100 MG Pantoprazole Sodium (Protonix Tab) 40 mg DAILY PO 06/16/17 09:00 07/16/17 08:59 07/04/17 08:05 40 MG Artificial Tears (Artificial Tears) 2 drops QID PRN OPB 06/15/17 19:30 07/15/17 19:29 06/16/17 10:03 2 DROPS Calcium/Vitamin D (Caltrate Plus Tab) 1 tab BID PO 06/15/17 21:00 07/15/17 20:59 07/04/17 20:11 1 TAB Miscellaneous Information (Order Awaiting Action) 1 ea QS N/A 06/16/17 00:00 07/16/17 00:00 Gabapentin (Neurontin Cap) 300 mg HS PO 06/15/17 22:00 07/15/17 21:59 07/04/17 21:34 300 MG Ipratropium [place] (Atrovent 0.02% 0.5MG/2.5ML Neb) 0.5 mg Q4R INH 06/16/17 16:00 07/16/17 15:59 07/05/17 03:25 0.5 MG Nifedipine (Procardia Xl Tab) 30 mg QAM PO 06/20/17 09:00 2/20/18 08:59 07/04/17 08:05 30 MG Benzonatate (Tessalon Perles Cap) 200 mg TID PO 06/19/17 21:00 07/16/17 13:59 07/04/17 20:11 200 MG Codeine Phosphate/ Guaifenesin (Robitussin-AC Sugar Free Syrup) 5 ml Q6H PRN PO 06/21/17 14:15 07/21/17 14:14 07/01/17 23:29 5 ML Budesonide/ Formoterol Fumarate (Symbicort 160/ 4.5 Inh) 2 puffs BID INH 06/21/17 21:00 07/21/17 20:59 07/04/17 20:09 2 PUFFS Glucose (Glucose 40% Gel) 15-30 GRAMS 15 GRAMS... UD PRN PO 06/21/17 14:30 07/21/17 14:29 Glucose (Glucose Chew Tab) 4-8 Tablets 4 Tabl... UD PRN PO 06/21/17 14:30 07/21/17 14:29 Dextrose (Dextrose 50% 50ML Syringe) 25-50ML OF 50% DW IV FOR... UD PRN IV 06/21/17 14:30 07/21/17 14:29 Glucagon (Glucagon Inj) 1 mg UD PRN SQ 06/21/17 14:30 07/21/17 14:29 Insulin Aspart (novoLOG ASPART) SLIDING SCALE G... ACHS SC 06/21/17 16:30 07/21/17 16:29 07/04/17 18:27 5 UNITS Menthol (Nice Dez) 1 dez PRN PRN DEZ 06/22/17 05:00 07/22/17 04:59 Nitroglycerin (Nitrostat Tab) 0.4 mg PRN PRN SL 06/22/17 08:00 07/22/17 07:59 06/22/17 08:09 0.4 MG Polyethylene (Miralax Powder Packet) 17 gm DAILY PO 06/22/17 10:30 07/15/17 19:14 07/04/17 08:06 17 GM Senna (Senokot Tab) 17.2 mg QAM PO 06/22/17 10:30 07/22/17 10:29 2/4/18 08:04 17.2 MG Sodium Chloride (Sodium Chloride 7% Neb Solution) 4 ml QIDR INH 06/23/17 20:00 07/23/17 19:59 07/04/17 18:53 4 ML Levalbuterol (Xopenex 1.25MG/ 0.5ML Neb) 1.25 mg Q4R INH 06/24/17 16:00 07/24/17 15:59 07/05/17 03:25 1.25 MG Oxycodone HCl (Roxicodone Immediate Rel Tab) 10 mg Q6 PRN PO 06/26/17 16:00 07/10/17 15:59 06/29/17 15:08 10 MG Rivaroxaban (Xarelto Tab) 20 mg QDD PO 07/01/17 17:00 07/31/17 16:59 07/04/17 17:19 20 MG Doxycycline Hyclate (Vibramycin Cap) 100 mg BID PO 07/02/17 20:00 07/09/17 19:59 07/04/17 20:11 100 MG Prednisone (PredniSONE TAB) 30 mg DAILY PO 07/04/17 08:00 07/06/17 08:01 07/04/17 08:06 30 MG Objective Vital Signs Date Time Temp Pulse Resp B/P (MAP) Pulse Ox O2 Delivery O2 Flow Rate FiO2 07/05/17 03:26 57 16 96 Nasal Cannula 2.0 07/05/17 00:00 Nasal Cannula 2.0 07/04/17 23:47 36.8 62 20 123/67 (85) 93 2.0 07/04/17 23:23 60 16 95 Nasal Cannula 2.0 07/04/17 21:14 62 07/04/17 18:53 56 16 95 Nasal Cannula 2.0 07/04/17 15:37 36.6 60 22 116/57 (76) 97 Nasal Cannula 2.0 07/04/17 15:25 Nasal Cannula 2.0 Humidified Oxygen 07/04/17 15:05 62 95 07/04/17 14:21 62 16 95 Nasal Cannula 2.0 07/04/17 11:23 59 16 96 Nasal Cannula 2.0 07/04/17 08:00 Room Air 07/04/17 07:52 36.5 64 22 135/69 (91) 95 Nasal Cannula 2.0 Physical Exam Comments: General appearance: +Morbidly obese. Well-developed, well-nourished, no apparent distress Head: Normocephalic, atraumatic Eyes: Normal inspection, PERRL, EOMI ENT: Normal ENT inspection, hearing grossly normal, pharynx normal Neck: Supple, no JVD, trachea midline Respiratory/Chest: Improved deep inspiration, less coughing during exam. No wheezing, mildly tight breath sounds Cardiovascular: Regular rate & rhythm, no gallop, no murmur Abdomen/GI: Normal bowel sounds, non-tender, soft Extremities/Musculoskeletal: +1+ pitting edema lower extremities, R>L. Normal inspection, no calf tenderness Neurological/Psych: Alert, normal mood/affect, oriented x 3 Skin: Normal color, warm/dry, no rash Laboratory Results Last 24 Hours Test 07/04/17 08:07 07/04/17 11:34 07/04/17 16:41 07/04/17 20:21 Bedside Glucose 92 mg/dl 134 mg/dl 147 mg/dl 126 mg/dl Test 07/05/17 06:37 Activated Partial Thromboplast Time 25.7 SECONDS Partial Thromboplastin Ratio 1.0 Assessment and Plan 71 y/o female with a history of HTN, HLD, paroxysmal a-fib on chronic AC, COPD, asthma, hypothyroidism, neuropathy, and LISSETH who presents cough, wheezing and shortness of breath Acute hypoxic respiratory failure secondary to COPD exacerbation and influenza-- ongoing -Admit to telemetry. Stable, transferred to med/surg -Completed 5 day course of Tamiflu -Continue Prednisone 30 mg. Day 1 of 3, then taper by 10 mg q3d -D/C Mucinex, start Robitussin AC q6h prn cough. Continue Tessalon Perles 200 mg PO TID -Incentive spirometry. Add flutter valve -Patient reports doing incentive spirometry more. -Pulmonology following, appreciate recs: Not enough fluid for thoracentesis -Bronchoscopy with minimal mucous plugs in right middle lobe and right lower lobe -Bronchial washing cultures pending. Fungal smear negative. Bronchial washings positive for MRSA -Was clindamycin, switched to doxycycline due to better lung penetration. -D/C heparin as no thoracentesis, resume Xarelto -Sputum culture heavy normal rubén -Continue Symbicort 2 puffs inh BID -Atrovent/Xopenex nebs q4h RLL PNA possibly aspiration pneumonia, dysphagia--ongoing -CTA chest negative for PE but possible evidence of aspiration -Continue clindamycin 150 mg PO q6h. Day #7 -switched to doxycycline as noted above -Esophageal x-ray suggests mild esophageal dysmotility -Speech therapy recommends dental soft, moist, slipper diet with thin liquids, aspiration precautions -Outpt GI f/u for possible EGD and/or barium swallow -Leukocytosis stable -CXR appears similar to previous -Immunoglobulin studies WNL Elevated troponin--resolved, now WNL -Likely secondary to demand ischemia due to above DM II--no recorded h/o DM, HgbA1c 6.6 on 06/21 -Insulin sliding scale -Check BSGs q ac and qhs HTN, HLD--stable -Continue nifedipine 30 mg PO qd, Toprol XL 100 mg PO qd, and Lipitor 20 mg PO qd Paroxysmal a-fib--stable, NSR -Continue digoxin 0.25 mg PO qd, flecainide 100 mg PO BID, metoprolol as above -Resume Xarelto Hypothyroidism -Continue Synthroid 75 mcg PO qd Neuropathy -Continue gabapentin 300 mg PO qd DVT prophylaxis -Xarelto Code Status -Level I, FULL RESUSCITATION STATUS Patient remains in hospital due to placement. Medically cleared for discharge Continued [facility] stay due to: ambulation difficulties, multiple IV medications needed, other (worsening chest symptoms ) Discharge planning: home
[2017-07-05] MEDS: BENZONATATE 100MG CAP PO SCH ×3 (07:52→21:31)
[2017-07-05] MEDS: BUDESONIDE/FORMOTEROL FUMARATE 160/4.5 60 PUFFS/INHALER INH SCH ×2 (07:52→21:33)
[2017-07-05] MEDS: FLECAINIDE ACETATE 100 MG TAB PO SCH ×2 (07:52→21:36)
[2017-07-05] MEDS: DOXYCYCLINE HYCLATE 100 MG CAP PO SCH ×2 (07:52→21:33)
[2017-07-05] MEDS: METOPROLOL SUCC 50MG EXT REL TAB PO SCH (07:52)
[2017-07-05] MEDS: NIFEdipine 30 MG CR TAB PO SCH (07:53)
[2017-07-05] MEDS: CALCIUM 600MG + VIT D 400 IU TAB PO SCH ×2 (07:53→21:31)
[2017-07-05] MEDS: SENNA 8.6 MG TAB PO SCH (07:53)
[2017-07-05] MEDS: CYANOCOBALAMIN 500 MCG TAB (VIT B-12) PO SCH (07:53)
[2017-07-05] MEDS: PANTOprazole SOD 40 MG TAB PO SCH (07:53)
[2017-07-05] MEDS: FUROSEMIDE 40 MG TAB PO SCH (07:53)
[2017-07-05] MEDS: POLYETHYLENE (MIRALAX) 17 GM PACK PO SCH (07:53)
[2017-07-05] MEDS: INSULIN ASPART 100 UNITS/ML 3 ML PEN SC SCH ×4 (09:02→21:05)
--- NOTE | 2017-07-05 12:23 | Progress Note ---
Subjective Date of Service: Jul 05, 2017. Subjective Pt evaluation today including: conversation w/ patient, physical exam, lab review, review of inpatient medication list Pain: no pain PO Intake: adequate Voiding: no voiding problems patient sitting in chair, no distress, breathing well reports that she is still short of breath on exertion, balance is off, she agrees with rehab breathing not quite at baseline, typically she only wears oxygen at night vitals stable, labs from days ago were stable discussed going to [facility] and she agreed spoke with CM, no beds available today Problem List Medical Problems: (1) Acute bronchitis Status: Acute (2) COPD exacerbation Status: Acute (3) COPD exacerbation Status: Acute (4) Elevated troponin Status: Acute (5) Hyponatremia Status: Acute (6) Hypoxia Status: Acute (7) Influenza A Status: Acute Review of Systems Constitutional: + weakness, + fatigue Respiratory: + cough, + dyspnea on exertion Neurologic: + weakness, + balance problems All Other Systems: Reviewed and Negative Medications Current Inpatient Medications Medications (Trade) Dose Ordered Sig/Darlene Route Start Time Stop Time Status Last Admin Dose Admin Acetaminophen (Tylenol Tab) 650 mg Q4H PRN PO 06/15/17 19:15 07/15/17 19:14 06/30/17 06:10 650 MG Magnesium Hydroxide (Milk Of Magnesia Susp) 30 ml Q12H PRN PO 06/15/17 19:15 07/15/17 19:14 Ondansetron HCl (Zofran Inj) 4 mg Q6H PRN IV 06/15/17 19:15 07/15/17 19:14 Atorvastatin Calcium (Lipitor Tab) 20 mg QPM PO 06/15/17 21:00 07/15/17 20:59 07/04/17 21:15 20 MG Cyanocobalamin (Vitamin B-12 Tab) 500 mcg DAILY PO 06/16/17 09:00 07/16/17 08:59 07/05/17 07:53 500 MCG Digoxin (Lanoxin Tab) 0.25 mg QPM PO 06/15/17 21:00 07/15/17 20:59 07/04/17 21:14 0.25 MG Docusate Sodium (coLACE CAP) 100 mg DAILY PRN PO 06/15/17 19:30 07/15/17 19:29 06/17/17 05:22 100 MG Flecainide Acetate (Tambocor Tab) 100 mg Q12 PO 06/15/17 21:00 07/15/17 20:59 07/05/17 07:52 100 MG Furosemide (Lasix Tab) 40 mg DAILY PO 06/16/17 09:00 07/16/17 08:59 07/05/17 07:53 40 MG Latanoprost (Xalatan Oph Soln) 1 drops HS OPB 06/15/17 21:00 07/15/17 20:59 07/04/17 21:34 1 DROPS Levothyroxine Sodium (Synthroid Tab) 75 mcg DAILYBB PO 06/16/17 06:00 07/16/17 06:59 07/05/17 06:24 75 MCG Metoprolol Succinate (Toprol Xl Tab) 100 mg DAILY PO 06/16/17 09:00 07/16/17 08:59 07/05/17 07:52 100 MG Pantoprazole Sodium (Protonix Tab) 40 mg DAILY PO 06/16/17 09:00 07/16/17 08:59 07/05/17 07:53 40 MG Artificial Tears (Artificial Tears) 2 drops QID PRN OPB 06/15/17 19:30 07/15/17 19:29 06/16/17 10:03 2 DROPS Calcium/Vitamin D (Caltrate Plus Tab) 1 tab BID PO 06/15/17 21:00 07/15/17 20:59 07/05/17 07:53 1 TAB Miscellaneous Information (Order Awaiting Action) 1 ea QS N/A 06/16/17 00:00 07/16/17 00:00 Gabapentin (Neurontin Cap) 300 mg HS PO 06/15/17 22:00 07/15/17 21:59 07/04/17 21:34 300 MG Ipratropium [place] (Atrovent 0.02% 0.5MG/2.5ML Neb) 0.5 mg Q4R INH 06/16/17 16:00 07/16/17 15:59 07/05/17 11:25 0.5 MG Nifedipine (Procardia Xl Tab) 30 mg QAM PO 06/20/17 09:00 07/20/17 08:59 07/05/17 07:53 30 MG Benzonatate (Tessalon Perles Cap) 200 mg TID PO 06/19/17 21:00 07/16/17 13:59 07/05/17 07:52 200 MG Codeine Phosphate/ Guaifenesin (Robitussin-AC Sugar Free Syrup) 5 ml Q6H PRN PO 06/21/17 14:15 07/21/17 14:14 07/01/17 23:29 5 ML Budesonide/ Formoterol Fumarate (Symbicort 160/ 4.5 Inh) 2 puffs BID INH 06/21/17 21:00 07/21/17 20:59 07/05/17 07:52 2 PUFFS Glucose (Glucose 40% Gel) 15-30 GRAMS 15 GRAMS... UD PRN PO 06/21/17 14:30 07/21/17 14:29 Glucose (Glucose Chew Tab) 4-8 Tablets 4 Tabl... UD PRN PO 06/21/17 14:30 07/21/17 14:29 Dextrose (Dextrose 50% 50ML Syringe) 25-50ML OF 50% DW IV FOR... UD PRN IV 06/21/17 14:30 07/21/17 14:29 Glucagon (Glucagon Inj) 1 mg UD PRN SQ 06/21/17 14:30 07/21/17 14:29 Insulin Aspart (novoLOG ASPART) SLIDING SCALE G... ACHS SC 06/21/17 16:30 07/21/17 16:29 07/05/17 09:02 5 UNITS Menthol (Nice Edz) 1 dez PRN PRN DEZ 06/22/17 05:00 07/22/17 04:59 Nitroglycerin (Nitrostat Tab) 0.4 mg PRN PRN SL 06/22/17 08:00 07/22/17 07:59 06/22/17 08:09 0.4 MG Polyethylene (Miralax Powder Packet) 17 gm DAILY PO 06/22/17 10:30 07/15/17 19:14 07/05/17 07:53 17 GM Senna (Senokot Tab) 17.2 mg QAM PO 06/22/17 10:30 07/22/17 10:29 07/05/17 07:53 17.2 MG Sodium Chloride (Sodium Chloride 7% Neb Solution) 4 ml QIDR INH 06/23/17 20:00 07/23/17 19:59 07/05/17 07:10 4 ML Levalbuterol (Xopenex 1.25MG/ 0.5ML Neb) 1.25 mg Q4R INH 06/24/17 16:00 07/24/17 15:59 07/05/17 11:25 1.25 MG Oxycodone HCl (Roxicodone Immediate Rel Tab) 10 mg Q6 PRN PO 06/26/17 16:00 07/10/17 15:59 06/29/17 15:08 10 MG Rivaroxaban (Xarelto Tab) 20 mg QDD PO 07/01/17 17:00 07/31/17 16:59 07/04/17 17:19 20 MG Doxycycline Hyclate (Vibramycin Cap) 100 mg BID PO 07/02/17 20:00 07/09/17 19:59 07/05/17 07:52 100 MG Prednisone (PredniSONE TAB) 30 mg DAILY PO 07/04/17 08:00 07/06/17 08:01 07/05/17 07:52 30 MG Objective Vital Signs Date Time Temp Pulse Resp B/P (MAP) Pulse Ox O2 Delivery O2 Flow Rate FiO2 07/05/17 12:05 50 07/05/17 11:25 58 16 93 Nasal Cannula 2.0 07/05/17 10:45 94 Nasal Cannula 1.0 07/05/17 08:18 36.5 48 20 127/68 (87) 94 Nasal Cannula 1.0 07/05/17 08:01 62 07/05/17 08:00 Nasal Cannula 2.0 07/05/17 07:12 55 16 94 Nasal Cannula 2.0 07/05/17 03:26 57 16 96 Nasal Cannula 2.0 07/05/17 00:00 Nasal Cannula 2.0 07/04/17 23:47 36.8 62 20 123/67 (85) 93 2.0 07/04/17 23:23 60 16 95 Nasal Cannula 2.0 07/04/17 21:14 62 07/04/17 18:53 56 16 95 Nasal Cannula 2.0 07/04/17 15:37 36.6 60 22 116/57 (76) 97 Nasal Cannula 2.0 07/04/17 15:25 Nasal Cannula 2.0 Humidified Oxygen 07/04/17 15:05 62 95 07/04/17 14:21 62 16 95 Nasal Cannula 2.0 Physical Exam General Appearance: no apparent distress, + obese Eyes: normal inspection, EOMI, sclerae normal ENT: normal ENT inspection, hearing grossly normal, pharynx normal Neck: supple, no adenopathy, no JVD, trachea midline Respiratory/Chest: chest non-tender, lungs clear, normal breath sounds, no respiratory distress, no accessory muscle use Cardiovascular: regular rate, rhythm, no edema, no gallop, no JVD, no murmur Abdomen: normal bowel sounds, non tender, soft, no organomegaly Extremities: normal range of motion, non-tender, normal inspection, no pedal edema, no calf tenderness, pelvis stable Neurologic/Psychiatric: 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 II-XII nml as tested, no motor/sensory deficits, alert, normal mood/affect, oriented x 3 Skin: normal color, warm/dry, no rash Laboratory Results Last 24 Hours Test 07/04/17 16:41 07/04/17 20:21 07/05/17 06:37 07/05/17 07:27 Bedside Glucose 147 mg/dl 126 mg/dl 103 mg/dl Activated Partial Thromboplast Time 25.7 SECONDS Partial Thromboplastin Ratio 1.0 Test 07/05/17 11:21 Bedside Glucose 159 mg/dl Assessment and Plan 71 y/o female with a history of HTN, HLD, paroxysmal a-fib on chronic AC, COPD, asthma, hypothyroidism, neuropathy, and LISSETH who presents cough, wheezing and shortness of breath Acute hypoxic respiratory failure secondary to COPD exacerbation and influenza completed Tamiflu, no further treatment needed Prednisone 30mg daily, taper on 07/06 to 20mg Bronchoscopy with minimal mucous plugs in right middle lobe and right lower lobe Bronchial washings positive for MRSA treat with Doxycycline, 8 days of antibiotics but on Clindamycin initially Continue Symbicort 2 puffs inh BID Atrovent/Xopenex nebs q4h RLL PNA possibly aspiration pneumonia, dysphagia--ongoing CTA chest negative for PE but possible evidence of aspiration Continue Doxycycline 100mg BID Day #8 Esophageal x-ray suggests mild esophageal dysmotility Speech therapy recommends dental soft, moist, slipper diet with thin liquids , aspiration precautions Outpt GI f/u for possible EGD and/or barium swallow Elevated troponin--resolved, now WNL -Likely secondary to demand ischemia due to above DM II--no recorded h/o DM, HgbA1c 6.6 on 06/21 -Insulin sliding scale -Check BSGs q ac and qhs HTN, HLD--stable -Continue nifedipine 30 mg PO qd, Toprol XL 100 mg PO qd, and Lipitor 20 mg PO qd Paroxysmal a-fib--stable, NSR -Continue digoxin 0.25 mg PO qd, flecainide 100 mg PO BID, metoprolol as above -Resume Xarelto Hypothyroidism -Continue Synthroid 75 mcg PO qd Neuropathy -Continue gabapentin 300 mg PO qd DVT prophylaxis -Xarelto Code Status -Level I, FULL RESUSCITATION STATUS patient will go to [facility] tomorrow, she is medically stable today but no beds available Continued [facility] stay due to: ambulation difficulties, multiple IV medications needed, other (worsening chest symptoms ) Discharge planning: home
[2017-07-05] MEDS: RIVAROXABAN 20 MG TAB PO SCH (17:25)
[2017-07-05] MEDS: DIGOXIN 0.25 MG TAB PO SCH (21:35)
[2017-07-05] MEDS: ATORVASTATIN 20 MG TAB PO SCH (21:35)
[2017-07-05] MEDS: LATANOPROST 0.005% OP SOLN 2.5 ML BTL OPB SCH (21:38)
[2017-07-05] MEDS: GABAPENTIN 300 MG CAP PO SCH (21:39)
[2017-07-06 03:36] VITALS: PULSE 57; O2SAT 96
[2017-07-06] MEDS: IPRATROPIUM BROMIDE NEB SOLN 0.02% 2.5 ML VIAL INH SCH ×2 (03:36→07:14)
[2017-07-06] MEDS: LEVALBUTEROL 1.25MG/0.5ML NEB INH SCH ×2 (03:36→07:14)
[2017-07-06] MEDS: LEVOTHYROXINE 75 MCG TAB PO SCH (06:05)
[2017-07-06] MEDS: SODIUM CHLORIDE 7% 4 ML NEB INH SCH (07:14)
[2017-07-06 07:16] VITALS: PULSE 56; O2SAT 92
[2017-07-06] MEDS: METOPROLOL SUCC 50MG EXT REL TAB PO SCH (07:41)
[2017-07-06] MEDS: BUDESONIDE/FORMOTEROL FUMARATE 160/4.5 60 PUFFS/INHALER INH SCH (07:41)
[2017-07-06] MEDS: FUROSEMIDE 40 MG TAB PO SCH (07:41)
[2017-07-06] MEDS: CYANOCOBALAMIN 500 MCG TAB (VIT B-12) PO SCH (07:41)
[2017-07-06] MEDS: BENZONATATE 100MG CAP PO SCH (07:41)
[2017-07-06] MEDS: DOXYCYCLINE HYCLATE 100 MG CAP PO SCH (07:41)
[2017-07-06] MEDS: SENNA 8.6 MG TAB PO SCH (07:41)
[2017-07-06] MEDS: PANTOprazole SOD 40 MG TAB PO SCH (07:42)
[2017-07-06] MEDS: POLYETHYLENE (MIRALAX) 17 GM PACK PO SCH (07:42)
[2017-07-06] MEDS: NIFEdipine 30 MG CR TAB PO SCH (07:42)
[2017-07-06] MEDS: FLECAINIDE ACETATE 100 MG TAB PO SCH (07:42)
[2017-07-06] MEDS: CALCIUM 600MG + VIT D 400 IU TAB PO SCH (07:42)
[2017-07-06 07:51] LABS: HEMATOCRIT 36.2 % (37-47); HEMOGLOBIN 11.7 g/dL (12.0-16.0); MEAN CORPUSCULAR HEMOGLOBIN 29.4 pg (25-34); MEAN CORPUSCULAR HGB CONC 32.3 g/dl (32-36); MEAN PLATELET VOLUME 9.2 fL (7.4-10.4); PLATELET COUNT 320 K/uL (130-400); RED CELL DISTRIBUTION WIDTH CV 14.5 % (11.5-14.5); RED CELL DISTRIBUTION WIDTH SD 47.7 fL (36.4-46.3); WHITE BLOOD COUNT 8.76 K/uL (4.8-10.8)
[2017-07-06 08:01] LABS: PTT PATIENT 24.8 SECONDS (21.0-31.0)
[2017-07-06 08:16] VITALS: BP 110/69; PULSE 50; TEMP 36.8; O2SAT 94
[2017-07-06] MEDS: INSULIN ASPART 100 UNITS/ML 3 ML PEN SC SCH ×2 (08:32→11:00)
[2017-07-06] MEDS ORDERED: PRD10 PO (08:51)
[2017-07-06] MEDS ORDERED: DXY100 PO (08:51)
--- NOTE | 2017-07-06 09:00 | Discharge Instructions ---
Discharge Instructions Date of Service Jul 06, 2017. Admission Reason for Admission: Acute Hypoxemic Respiratory Failure, Influenza A Discharge Discharge Diagnosis / Problem: Influenza A, MRSA pneumonia, acute on chronic hypoxia Discharge Goals Goal(s): Improve function, Diagnostic testing (barium swallow, refer to GI) Activity Recommendations Activity Level: OOB In Chair, Assistance Required Therapies: Physical Therapy, Occupational Therapy Lifting Limitations: none Exercise/Sports Limitations: as tolerated Shower/Bathe: no limitations . Additional Information Patient informed of condition: Yes Advance Directives: Yes DNR: No Level of Care: Acute Rehab Communicable Disease: No Prognosis: Stable Oxygen at (LPM): 2-3 liters Michel Catheter: No Instructions / Follow-Up Instructions / Follow-Up Medications - DOXYCYCLINE: take 100mg twice a day for 10 more doses to adequately treat MRSA in lungs - PREDNISONE: starting tomorrow, take 20mg daily for 3 days and then 10mg daily for 3 days Acute hypoxic respiratory failure secondary to COPD exacerbation and influenza completed Tamiflu, no further treatment needed Prednisone 20mg daily x 3 days then 10mg daily x 3 days then stop Bronchoscopy with minimal mucous plugs in right middle lobe and right lower lobe Bronchial washings positive for MRSA treated with Doxycycline, complete 10 more doses Continue Symbicort 2 puffs inh BID Atrovent/Xopenex nebs q4h RLL PNA possibly aspiration pneumonia, dysphagia--ongoing CTA chest negative for PE but possible evidence of aspiration Continue Doxycycline 100mg BID Esophageal x-ray suggests mild esophageal dysmotility Outpt GI f/u for possible EGD and/or barium swallow, not urgent Dysphagia: Speech therapy recommends dental soft, moist, slipper diet with thin liquids, aspiration precautions Follow up - physician at [facility] - Dr. Venegas one week after d/c from rehab - Dr. Villalta, pulmonary, should follow up in several weeks CHEST X-RAY: should be repeated in 4-6 weeks to follow up right lower lobe infiltrates Current Hospital Diet Patient's current hospital diet: AHA Diet (Heart Healthy), Diabetes Type 2 Diet Discharge Diet Recommended Diet: AHA Diet (Heart Healthy), Diabetes Type 2 Diet Procedures Procedures Performed: Bronchoscopy Pending Studies Studies pending at discharge: no Physician Orders On Transfer POLST Discussion: Not Applicable Laboratory Results Hemoglobin A1c Test 06/21/17 07:53 Range/Units Estimated Average Glucose 143 mg/dl Hemoglobin A1c 6.6 H 4.5-5.6 % Medical Emergencies . Who to Call and When: Medical Emergencies: If at any time you feel your situation is an emergency, please call 911 immediately. . Non-Emergent Contact Non-Emergency issues call your: Primary Care Provider Call Non-Emergent contact if: you have a fever, you have any medication questions . . "Provider Documentation" section prepared by Srini Mata. . Core Measure Problem Core Measures: None [place] Drug Monitoring Program Search Results: no issues identified
[2017-07-06 10:52] VITALS: BP 110/69; PULSE 50; TEMP 36.8; O2SAT 94
--- NOTE | 2017-07-06 16:22 | Discharge Summary ---
Discharge Summary Date of Service Jul 06, 2017. Discharge Summary Admission Date: Jun 15, 2017 at 19:23 Discharge Date: Jul 06, 2017 Discharge Disposition: Rehab Principal Diagnosis: Acute hypoxic respiratory failure Problems/Secondary Diagnoses: Influenza Right lower lobe pneumonia, MRSA Immunizations: Have You Had Influenza Vaccine: Yes Influenza Vaccine Date: Mar 02, 2013 History of Tetanus Vaccine?: UTD History of Pneumococcal: Yes History of Hepatitis B Vaccine: No Procedures: Bronchoscopy Consultations: Pulmonology Medication Reconciliation New Medications: Prednisone (Prednisone) 10 Mg Tab 20 MG PO DAILY for 6 Days, #9 TABS 0 Refills 20mg x 3 days then 10mg x 3 days then stop Benzonatate (Benzonatate) 100 Mg Cap 200 MG PO TID PRN for Cough for 7 Days, #42 CAP Doxycycline Hyclate (Doxycycline Hyclate) 100 Mg Cap 100 MG PO BID, #10 CAP 0 Refills Guaifenesin Ext Rel (Mucinex Ext Rel) 600 Mg Tabcr 1200 MG PO Q12 for 7 Days, #28 TABS Nifedipine (Adalat cc) 30 Mg Tab 30 MG PO QAM for 30 Days, #30 TAB Continued Medications: Acetaminophen Tab (Tylenol) 325 Mg Tab 650 MG PO Q4 PRN for Mild Pain MILD PAIN, RATED 1-3 OF 10. MAX 3 GM/24 HRS Artificial Tear Solution (Artificial Tears) 1 Marisol Marisol 2 DROPS OPB QID PRN for DRYNESS Atorvastatin (Lipitor) 20 Mg Tab 20 MG PO QPM Calcium Carbonate-Vitamin D (Calcium 600 + D) 1 Tab Tab 1 TAB PO BID Cyanocobalamin (Vitamin B-12) 500 Mcg Tab 500 MCG PO DAILY Cyclosporine (Ophth) (Restasis) 0.05 % Emu 1 DROP OPB Q12 Digoxin (Digoxin) 0.25 Mg Tab 0.25 MG PO DAILY Docusate Sodium (Docusate Sodium) 100 Mg Cap 100 MG PO DAILY PRN for Constipation Flecainide Acetate (Flecainide Acetate) 100 Mg Tab 100 MG PO Q12 Furosemide (Lasix) 40 Mg Tab 40 MG PO DAILY Gabapentin (Neurontin) 300 Mg Cap 300 MG PO DAILY Home O2 Therapy (Oxygen) Gas 2 LITERS NA PRN Ipratropium [place] (Atrovent Hfa) 200 Puffs/3400 Mcg Aers 2 PUFFS INH QID PRN for SOB/Wheezing Ipratropium [place] (Ipratropium [place]) 1 Ea Nebu 1 DOSE INH QID PRN for SOB/Wheezing Latanoprost (Xalatan 0.005% Oph Marisol) 0.005 % Marisol 1 DROPS OPB HS Levothyroxine Sodium (Levothyroxine Sodium) 75 Mcg Tab 75 MCG PO DAILY Metoprolol Succ (Toprol Xl) (Toprol-Xl ) 100 Mg Tabcr 100 MG PO DAILY Pantoprazole (Protonix) 40 Mg Tab 40 MG PO DAILY Rivaroxaban (Xarelto) 20 Mg Tab 20 MG PO DAILY Sennosides-Docusate Sodium (Senna Plus) 1 Tab Tab 1 TAB PO DAILY Discontinued Medications: Amoxicillin & Pot Clavulanate (Augmentin 875-125 mg) 1 Tab Tab 1 TAB PO BID Prednisone (Prednisone) 10 Mg Tab 1 DOSE PO UD TAPER: 60 MG PO DAILY , TAPER BY 10 MG EVERY 2 DAYS UNTIL OFF. LAST RX 06/14/17, PER MED LIST Discharge Exam Patient feeling well today, even going without oxygen while sitting in her chair. No new symptoms. Coughing less. Still with dyspnea on exertion but improving. Still with weakness, dizziness when ambulating, she is looking forward to getting stronger at rehab. Review of Systems: Constitutional: No fever, No chills, No sweats, No weight loss, No weakness , No fatigue, No problem reported Eyes: No worsening of vision, No eye pain, No redness, No discharge, No diplopia, No problem reported ENT: No hearing loss, No unusual epistaxis, No nasal symptoms, No sore throat, No tinnitus, No dental problems, No trouble swallowing, No problem reported Respiratory: + cough, + dyspnea on exertion, No sputum, No wheezing, No shortness of breath, No dyspnea at rest, No hemoptysis, No problem reported Cardiovascular: No chest pain, No orthopnea, No PND, No edema, No claudication, No palpitations, No problem reported Abdomen: No pain, No nausea, No vomiting, No diarrhea, No constipation, No GI bleeding, No problem reported Musculoskeletal: No joint pain, No muscle pain, No swelling, No calf pain, No problem reported Genitourinary - Female: No dysuria, No urinary frequency, No urinary urgency , No urinary incontinence, No urinary retention, No hematuria Neurologic: + weakness, + balance problems, No memory loss, No paralysis, No numbness/tingling, No vertigo, No problem reported Psychiatric: No depression symptoms, No anhedonism, No anxiety, No insomnia , No substance abuse, No problem reported Endocrine: No fatigue, No excessive thirst, No excessive urination, No problem reported Hematologic / Lymphatic: No abnormal bleeding/bruising, No clotting problems , No swollen lymph nodes, No night sweats, No problem reported Integumentary: No rash, No itch, No new/changing skin lesions, No color change, No bleeding, No problem reported Physical Exam: General Appearance: no apparent distress, + obese Eyes: normal inspection, EOMI, sclerae normal ENT: normal ENT inspection, hearing grossly normal, pharynx normal Neck: supple, no adenopathy, no JVD, trachea midline Respiratory/Chest: chest non-tender, lungs clear, normal breath sounds, no respiratory distress, no accessory muscle use Cardiovascular: regular rate, rhythm, no edema, no gallop, no JVD, no murmur , normal peripheral pulses Abdomen / GI: normal bowel sounds, non tender, soft, no organomegaly Extremities: normal inspection, no calf tenderness, normal capillary refill , no pedal edema, normal range of motion, pelvis stable 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, no motor/sensory deficits , alert, normal mood/affect, normal reflexes, oriented x 3 Skin: normal color, warm/dry, no rash Hospital Course 71 y/o female with a history of HTN, HLD, paroxysmal a-fib on chronic AC, COPD, asthma, hypothyroidism, neuropathy, and LISSETH who presents cough, wheezing and shortness of breath Acute hypoxic respiratory failure secondary to COPD exacerbation and influenza completed Tamiflu, no further treatment needed Prednisone 30mg daily, will taper to 20mg daily for 3 days and then 10mg daily x 3 days then stop Bronchoscopy with minimal mucous plugs in right middle lobe and right lower lobe Bronchial washings positive for MRSA needs 5 more days of Doxycycline 100mg BID, completed 2 days previously initial treatment did not cover MRSA Continue Symbicort 2 puffs inh BID Atrovent/Xopenex nebs q4h RLL PNA possibly aspiration pneumonia, dysphagia--ongoing CTA chest negative for PE but possible evidence of aspiration Continue Doxycycline 100mg BID for 5 more days on discharge Esophageal x-ray suggests mild esophageal dysmotility Speech therapy recommends dental soft, moist, slipper diet with thin liquids , aspiration precautions Elevated troponin--resolved, now WNL -Likely secondary to demand ischemia due to above DM II--no recorded h/o DM, HgbA1c 6.6 on 06/21 -Insulin sliding scale -Check BSGs q ac and qhs HTN, HLD--stable -Continue nifedipine 30 mg PO qd, Toprol XL 100 mg PO qd, and Lipitor 20 mg PO qd Paroxysmal a-fib--stable, NSR -Continue digoxin 0.25 mg PO qd, flecainide 100 mg PO BID, metoprolol as above - continue Xarelto for anticoagulation Hypothyroidism -Continue Synthroid 75 mcg PO qd Neuropathy -Continue gabapentin 300 mg PO qd DVT prophylaxis -Xarelto Code Status -Level I, FULL RESUSCITATION STATUS patient will go to [facility] today Total Time Spent: Greater than 30 minutes This includes examination of the patient, discharge planning, medication reconciliation, and communication with other providers. Discharge Instructions Please refer to the electronic Patient Visit Report (Discharge Instructions) for additional information. Follow-Up Physician at [facility] Dr. Venegas one week after discharge from [facility] Dr. Villalta in one month needs a repeat CXR in 4-6 weeks Additional Copies To Juan Carlos Villalta DO; [facility]; Harsha Venegas M.D.
== END 2017-07-06 11:55 | DRG 177 ==
LOC: C.EDB 14:45 → C.2T 19:23 → ENRESERV 19:36 → C.MS2W 06-18 16:14 → EDBEDREQ 06-22 08:25 → ENRESERV 06-22 10:08 → C.MSICU 06-22 11:57 → C.2T 06-22 19:16 → EDBEDREQ 06-24 16:45 → ENRESERV 06-24 18:37 → C.MS4W 06-24 20:31
PROVIDERS: ADMIT Family Medicine; ATTEND Internal Medicine
PROC: 0B968ZX Drainage of Right Lower Lobe Bronchus, Via Natural or Artificial Opening Endoscopic, Diagnostic (ICD-10-PCS; principal; 2017-06-29 09:00)
DX: J11.08 Influenza due to unidentified influenza virus with specified pneumonia (principal); J96.01 Acute respiratory failure with hypoxia; J15.212 Pneumonia due to Methicillin resistant Staphylococcus aureus; E87.1 Hypo-osmolality and hyponatremia; J44.1 Chronic obstructive pulmonary disease with (acute) exacerbation; I24.8 Other forms of acute ischemic heart disease; Z68.42 Body mass index [BMI] 45.0-49.9, adult; J98.11 Atelectasis; E03.9 Hypothyroidism, unspecified; I10 Essential (primary) hypertension; E78.5 Hyperlipidemia, unspecified; G62.9 Polyneuropathy, unspecified; G47.33 Obstructive sleep apnea (adult) (pediatric); H04.129 Dry eye syndrome of unspecified lacrimal gland; I48.0 Paroxysmal atrial fibrillation; E66.01 Morbid (severe) obesity due to excess calories; E11.65 Type 2 diabetes mellitus with hyperglycemia; R13.10 Dysphagia, unspecified; R59.1 Generalized enlarged lymph nodes; I25.10 Atherosclerotic heart disease of native coronary artery without angina pectoris; K59.00 Constipation, unspecified; Z82.3 Family history of stroke; Z82.49 Family history of ischemic heart disease and other diseases of the circulatory system; Z79.01 Long term (current) use of anticoagulants

== ENCOUNTER → 2017-08-03 | Outpatient (CLI) | payer OTHER ==
[~2017-08-03] MED LIST changes: -ACET-1311 PO; +ACET-1693 PO; +ARTISOL12 OPB; -ATOR-22 PO; -ATRINS INH; +BENZ100C7 PO; -BISA10SU38 PR; +CALC-20 PO; -CALCTAB65 PO; +CYCL0.052 OPB; -DIGO0.2519 PO; -FLEC100T21 PO; +FRS/40 PO; -FURO40TA3 PO; +GABA-113 PO; +GFNSR600 PO; -GLYCDRO6 OPB; +IPRLVL INH; +LATA0.009 OPB; -LEVO75TA PO; +LEVO75TA5 PO; +LNX25 PO; +LPT20 PO; -MAGNSUS5 PO; +NIFE-95 PO; -NRN/300 PO; -POLY335019 PO; +PRD10 PO; -PRD20 PO; -RIVA1TAB4 PO; -SENN-65 PO; +SENN1TAB65 PO; -SODIENE PR; +TMB100 PO; +XRL20 PO
--- NOTE | 2017-08-03 14:26 | DIAGNOSTIC IMAGING REPORT ---
CHEST 2 VIEWS ROUTINE CLINICAL HISTORY: PNEUMONIA dyspnea COMPARISON STUDY: 07/04/2017 FINDINGS: Slight improvement in aeration right lung base. Persistent consolidative change at the lateral and posterior aspect of the right lung base. Lungs otherwise remain clear. Mild stable cardiomegaly. IMPRESSION: mild improvement in aeration right lung base with persistent infiltrative and effusion-type changes identified. Continued follow-up to resolution is suggested. The above report was generated using voice recognition software. It may contain grammatical, syntax or spelling errors. Electronically signed by: Jaylen Ronquillo M.D. 08/03/2017 2:25 PM Dictated Date/Time: 08/03/2017 2:23 PM
== END | disposition home or self-care (01) ==
LOC: C.RAD1850 13:58
PROVIDERS: ATTEND Physician Assistant
DX: J15.212 Pneumonia due to Methicillin resistant Staphylococcus aureus (principal)

== ENCOUNTER → 2017-10-15 | Outpatient (CLI) | payer OTHER ==
[2017-10-15 16:48] LABS: HEMATOCRIT 39.8 % (37-47); HEMOGLOBIN 12.7 g/dL (12.0-16.0); MEAN CELL VOLUME 91.5 fL (80-100); MEAN CORPUSCULAR HEMOGLOBIN 29.2 pg (25-34); MEAN CORPUSCULAR HGB CONC 31.9 g/dl (32-36); MEAN PLATELET VOLUME 9.8 fL (7.4-10.4); PLATELET COUNT 268 K/uL (130-400); RED CELL DISTRIBUTION WIDTH CV 13.3 % (11.5-14.5); RED CELL DISTRIBUTION WIDTH SD 44.8 fL (36.4-46.3); WHITE BLOOD COUNT 8.54 K/uL (4.8-10.8)
[2017-10-15 16:56] LABS: HEMOGLOBIN A1C 6.3 % (4.5-5.6)
[2017-10-15 17:12] LABS: ALBUMIN 3.1 gm/dl (3.4-5.0); ALKALINE PHOSPHATASE 103 U/L (45-117); ALT/SGPT 21 U/L (12-78); AST/SGOT 24 U/L (15-37); BLOOD UREA NITROGEN 13 mg/dl (7-18); CALCIUM 9.1 mg/dl (8.5-10.1); CARBON DIOXIDE 30 mmol/L (21-32); CREATININE 0.81 mg/dl (0.60-1.20); GLUCOSE 97 mg/dl (70-99); POTASSIUM 3.7 mmol/L (3.5-5.1); SODIUM 137 mmol/L (136-145); TOTAL PROTEIN 7.7 gm/dl (6.4-8.2)
== END | disposition home or self-care (01) ==
LOC: C.LABBFT 11:14
PROVIDERS: ATTEND Internal Medicine Cardiovascular Disease
DX: I48.91 Unspecified atrial fibrillation (principal); E11.9 Type 2 diabetes mellitus without complications; E55.9 Vitamin D deficiency, unspecified

== ENCOUNTER → 2017-10-20 | Outpatient (CLI) | payer OTHER | END | disposition home or self-care (01) | LOC: C.LABBFT 11:55 | PROVIDERS: ATTEND Physician Assistant Medical | DX: R19.7 Diarrhea, unspecified (principal) ==

== ENCOUNTER → 2017-12-22 | Outpatient (CLI) | payer OTHER ==
--- NOTE | 2017-12-22 14:12 | DIAGNOSTIC IMAGING REPORT ---
CHEST 2 VIEWS ROUTINE CLINICAL HISTORY: J15.212 MRSA [id number] COMPARISON STUDY: 08/03/2017 FINDINGS: The heart is mildly enlarged. There is no failure. There is a persistent but decreasing right pleural effusion. There is improving aeration of the right lower lobe. The left lung remains clear.[ IMPRESSION: Decreasing right pleural effusion with resolving right basilar airspace opacities Electronically signed by: Bobby Fonseca M.D. 12/22/2017 2:10 PM Dictated Date/Time: 12/22/2017 2:09 PM
== END | disposition home or self-care (01) ==
LOC: C.RAD1850 13:54
PROVIDERS: ATTEND Physician Assistant
DX: J15.212 Pneumonia due to Methicillin resistant Staphylococcus aureus (principal)

== ENCOUNTER → 2018-01-10 | Outpatient (CLI) | payer OTHER ==
[2018-01-10 12:19] LABS: HEMATOCRIT 39.8 % (37-47); HEMOGLOBIN 12.9 g/dL (12.0-16.0); MEAN CELL VOLUME 90.9 fL (80-100); MEAN CORPUSCULAR HEMOGLOBIN 29.5 pg (25-34); MEAN CORPUSCULAR HGB CONC 32.4 g/dl (32-36); MEAN PLATELET VOLUME 9.8 fL (7.4-10.4); PLATELET COUNT 283 K/uL (130-400); RED CELL DISTRIBUTION WIDTH CV 14.2 % (11.5-14.5); RED CELL DISTRIBUTION WIDTH SD 47.1 fL (36.4-46.3); WHITE BLOOD COUNT 8.59 K/uL (4.8-10.8)
[2018-01-10 12:29] LABS: INR 1.2 (0.9-1.1); PTT PATIENT 35.9 SECONDS (21.0-31.0)
[2018-01-10 12:36] LABS: BLOOD UREA NITROGEN 12 mg/dl (7-18); CALCIUM 9.2 mg/dl (8.5-10.1); CARBON DIOXIDE 27 mmol/L (21-32); GLUCOSE 114 mg/dl (70-99); POTASSIUM 3.8 mmol/L (3.5-5.1); SODIUM 137 mmol/L (136-145)
== END | disposition home or self-care (01) ==
LOC: C.LAB1850 10:33
PROVIDERS: ATTEND Internal Medicine Interventional Cardiology
DX: Z01.812 Encounter for preprocedural laboratory examination (principal)

== ENCOUNTER 2019-05-29 19:21 | Observation (INO) ==
[2019-05-29] MEDS ORDERED: ALBUT/IPRATROP 3MG/0.5MG NEB 3 ML VIAL INH STA (20:03)
[2019-05-29] MEDS ORDERED: methylPREDNISolone 60 MG in SYRINGE 1 ML IV STA (20:05)
--- NOTE | 2019-05-29 20:34 | XRay Report ---
XR chest 1V portable CLINICAL HISTORY: Shortness of breath. COMPARISON STUDY: Chest CT June 22, 2017. Chest radiograph April 10, 2019. FINDINGS: Old left humeral fracture is partially imaged. There is no pneumothorax or pleural effusion . Note is made of moderate cardiomegaly without evidence for pulmonary edema. There is mild right low er lung opacity. This has decreased since exam of April 10, 2019. IMPRESSION: 1. Mild right basilar opacity which has decreased since exam of April 10, 2019. 2. Moderate cardiomegaly without evidence for pulmonary edema. ACT 112: Negative or not required by law. Electronically signed by: Chucho Mcclendon M.D. 05/29/2019 8:33 PM
--- NOTE | 2019-05-29 21:12 | Emergency Department Note ---
Entered by Jasbir Soler acting as a scribe for History of Present Illness General Chief complaint: Respiratory Problems Stated complaint: PNEUMONIA SYMPTOMS Time Seen by Provider: 05/29/19 19:33 Source: patient History of Present Illness Provider complaint: Cough Onset (ago): day(s) (Couple of days) Location: chest Severity: similar to prior episodes Pain Consistency: + constant Maximum Pain Intensity: 7 Current Pain Intensity: 7 Relieved By: + none Associated symptoms: + denies other symptoms (Diarrhea, urinary symptoms), + cough, + shortness of breath and + other (Rhinorrhea); no fever/chills and no nausea/vomiting The patient is a 73 year old female who presents to the Emergency Room with complaints of a constant cough that has been present for the past couple of days. The patient states the cough is productive and nothing seems to help relieve it. The patient also has constant rhinorrhea and a mild sore throat. The patient rates her symptoms as a 7/10 in severity. The patient adds that she did get the flu shot and has not been around anyone sick. She also mentioned that she has a history of asthma and just had pneumonia last month. The patient recalls that she has needed to be hospitalized for her asthma. The patient denies any fevers, nausea, vomiting, diarrhea, or urinary symptoms. The patient still takes Digoxin for her Afib. Home Medications Home Medications Medication Instructions Recorded Confirmed Type levalbuterol tartrate [Xopenex HFA] 2 inh INHALATION Q4H 05/05/18 05/15/19 History Oxygen Home #1 ea 01/14/19 05/15/19 History acetaminophen 325 mg tablet 650 mg PO Q4H PRN tab 01/14/19 05/29/19 History budesonide-formoterol HFA 160 2 puffs INHALATION BID #1 gm 01/14/19 05/15/19 History mcg-4.5 mcg/actuation aerosol inhaler calcium carbonate 500 mg (1,250 1 tab PO DAILY tab 01/14/19 05/29/19 History mg)-vitamin D3 200 unit tablet cyanocobalamin (vitamin B-12) 500 500 mcg SL DAILY #30 tab 01/14/19 05/29/19 History mcg disintegrating tablet,sublingual cyclosporine 0.05 % eye drops in a 1 drops OPHTHALMIC (EYE) BID ea 01/14/19 05/29/19 History dropperette digoxin 250 mcg (0.25 mg) tablet 250 mcg PO DAILY #90 tab 01/14/19 05/29/19 History docusate sodium 100 mg capsule 100 mg PO DAILY PRN cap 01/14/19 05/29/19 History flecainide 100 mg tablet 100 mg PO Q12H #180 tab 01/14/19 05/15/19 History furosemide 40 mg tablet 20 mg PO DAILY #90 tab 01/14/19 05/15/19 History gabapentin 300 mg capsule 300 mg PO DAILY #90 cap 01/14/19 05/15/19 History ipratropium bromide 0.02 % INHALATION QID PRN #312.5 ml 01/14/19 05/15/19 History solution for inhalation latanoprost 0.005 % eye drops 1 drops OP HS ml 01/14/19 05/29/19 History levothyroxine 75 mcg tablet 75 mcg PO DAILY #90 tab 01/14/19 05/29/19 History sennosides 8.6 mg-docusate sodium 1 tab PO DAILY #90 tab 01/14/19 05/15/19 History 50 mg tablet metoprolol succinate 100 mg 100 mg PO DAILY #90 tab 01/26/19 05/15/19 Rx tablet,extended release 24 hr rivaroxaban 20 mg tablet 20 mg PO QPM #90 tab 01/31/19 05/15/19 Rx montelukast 10 mg tablet 10 mg PO HS #90 tab 03/13/19 05/29/19 Rx levalbuterol HCl 1.25 mg/3 mL 1.25 mg INHALATION Q4H #300 ml 05/02/19 05/15/19 Rx solution for nebulization pantoprazole 40 mg tablet,delayed 40 mg PO DAILY #90 tab 05/15/19 Rx release famotidine 20 mg tablet 20 mg PO DAILY #90 tab 05/23/19 Rx atorvastatin 20 mg PO QPM 05/29/19 05/29/19 History Allergies Allergy/AdvReac Type Severity Reaction Status Date / Time pecan nut Allergy Unknown . Verified 05/15/19 13:25 Sulfa (Sulfonamide AdvReac Mild YEAST Verified 05/15/19 13:25 Antibiotics) INFECTION Past Med/Surg History Medical History Afib Asthma Asthma Atrial fibrillation with rapid ventricular response (Inactive) Atrial flutter Chest pain (Inactive) COPD (chronic obstructive pulmonary disease) Humerus fracture (Inactive 07/05/13) Hypertension Hypothyroid Surgical History History of decompression of median nerve at carpal tunnel (neuroplasty) History of hernia repair History of laparoscopic cholecystectomy History of total abdominal hysterectomy History of total knee arthroplasty Status post endovenous radiofrequency ablation of saphenous vein History of endovenous ablation of incompetent vein radiofrequency. Type of vein not specified in CCD Family History Father Pulmonary embolism Skin cancer Social History Preferred Language: Japanese Communication Ability: Effective Beliefs That Will Affect Care: None Current Living Situation: Alone Feels Safe at Home: Yes Smoking Status: Never smoker Hx Alcohol Use: No Hx Substance Use: No caffeine: Yes Seatbelt Use: always Review of Systems See HPI for pertinent positives & negatives. and A total of 10 systems reviewed and were otherwise negative Physical Exam Vital Signs Vital Signs - 24 hr 05/29/19 19:29 05/29/19 20:37 05/29/19 20:53 Temperature 36.7 C Temperature Source Oral Pulse Rate 62 Pulse Rate [Apical] 58 L 59 L Respiratory Rate 24 18 20 Respiratory Effort / Characteristics Spontaneous Blood Pressure 215/71 H Blood Pressure [Left Arm] 180/67 H Blood Pressure Mean 119 Blood Pressure Mean [Left Arm] 104 Pulse Oximetry 92 95 95 Oxygen Delivery Method Room Air Room Air Sepsis Recent Fever Within 48 Hours No Sepsis New/Unexplained Change in Mental Status No Sepsis Action Taken by Nursing No Action Required 05/29/19 21:49 Temperature Temperature Source Pulse Rate Pulse Rate [Apical] 64 Respiratory Rate 22 Respiratory Effort / Characteristics Blood Pressure Blood Pressure [Left Arm] 188/77 H Blood Pressure Mean Blood Pressure Mean [Left Arm] 114 Pulse Oximetry 98 Oxygen Delivery Method Sepsis Recent Fever Within 48 Hours Sepsis New/Unexplained Change in Mental Status Sepsis Action Taken by Nursing GENERAL: Patient is in no acute distress. HEENT: No acute trauma, normocephalic atraumatic, mucous membranes moist, moderate nasal congestion, no scleral icterus. NECK: No stridor, no adenopathy, no meningismus, trachea is midline. LUNGS: Diminished breath sounds, wheezing bilaterally, no respiratory distress, moist cough noted. HEART: Without murmurs gallops or rubs, regular rate and rhythm. ABDOMEN: Soft, nontender, bowel sounds positive, no hernias, no peritonitis. EXTREMITIES: No cyanosis or edema, full range of motion of all the joints without pain or difficulty, no signs for acute trauma. NEUROLOGIC: Oriented x 3, no acute motor or sensory deficits, no focal weakness. SKIN: No rash, no jaundice, no diaphoresis. Course Course 2000: Past medical records reviewed. The patient was evaluated in room B03B, and a complete history and physical examination were performed. 2136: I reevaluated the patient and she is resting in bed. I updated her on tests results as well. We discussed the treatment plan and she was agreeable. 2209: I spoke to Dr. Rhoades [facility] Hospitalist about the patient's case. He agreed to accept the patient for further evaluation. Consultations Consultation #1: I spoke to Dr. Rhoades [facility] Hospitalist about the patient's case. He agreed to accept the patient for further evaluation. Time: 22:10 Administered Medications Doxycycline Hyclate 100 mg/ (Dextrose) 110 mls @ 50 mls/hr IV NOW STA Stop: 05/29/19 23:50 Last Admin: 05/29/19 22:22 Dose: 50 mls/hr Documented by: [id number] Sodium Chloride (Nss 1000ml) 1,000 mls @ 999 mls/hr IV .Q1H1M ONE Stop: 05/29/19 22:54 Last Admin: 05/29/19 22:23 Dose: 999 mls/hr Documented by: [id number] Discontinued Medications Albuterol (Duoneb) 3 ml INH NOW STA Stop: 05/29/19 20:04 Last Admin: 05/29/19 20:50 Dose: 3 ml Documented by: [id number] Methylprednisolone 60 mg/ (Syringe) 1.96 mls @ 1.5 mls/min IV NOW STA Stop: 05/29/19 20:06 Last Admin: 05/29/19 21:10 Dose: 1.5 mls/min Documented by: [id number] Ceftriaxone Sodium (Rocephin) 2,000 mg in 70 mls @ 140 mls/hr IV NOW STA Stop: 05/29/19 22:00 Last Admin: 05/29/19 21:43 Dose: 140 mls/hr Documented by: [id number] Medical Decision Making Differential Diagnosis Differential Diagnosis includes: Pneumonia, bronchitis, asthma exacerbation, CHF, influenza, flu-like symptoms, dehydration, sepsis, and bacteremia, amongst others. Medical Records Attestation: I reviewed the patient's medical records. Home Medications Current Medication List: was personally reviewed by me Laboratory Data Attestation: I reviewed the patient's lab results. Result diagrams: 05/29/19 20:58 05/29/19 20:58 Lab Results 05/29/19 05/29/19 05/29/19 Range/Units 20:15 20:58 20:58 WBC 10.37 (4.8-10.8) K/uL RBC 4.45 (4.2-5.4) M/uL Hgb 13.2 (12.0-16.0) g/dL Hct 41.2 (37-47) % MCV 92.6 (80-100) fL MCH 29.7 (25-34) pg MCHC 32.0 (32-36) g/dL RDW Std Deviation 47.4 H (36.4-46.3) fL RDW Coeff of Sonal 13.9 (11.5-14.5) % Plt Count 285 (130-400) K/uL MPV 9.9 (7.4-10.4) fL Immature Gran % (Auto) 0.2 % Neut % (Auto) 63.9 % Lymph % (Auto) 24.6 % Frontier % (Auto) 7.8 % Eos % (Auto) 2.9 % Baso % (Auto) 0.6 % Immature Gran # (Auto) 0.02 (0.00-0.02) K/uL Neut # (Auto) 6.63 H (1.4-6.5) K/uL Lymph # (Auto) 2.55 (1.2-3.4) K/uL Frontier # (Auto) 0.81 H (0.11-0.59) K/uL Eos # (Auto) 0.30 (0-0.5) K/uL Baso # (Auto) 0.06 (0-0.2) K/uL PT 11.9 (9.0-12.0) Seconds INR 1.2 H (0.9-1.1) APTT 31.9 H (21.0-31.0) Seconds PTT Ratio 1.2 Sodium (136-145) mmol/L Potassium (3.5-5.1) mmol/L Chloride (98-107) mmol/L Carbon Dioxide (21-32) mmol/L Anion Gap (3-11) BUN (7-18) mg/dl Creatinine (0.6-1.2) mg/dl Est Cr Clr Drug Dosing ml/min Est GFR ( Amer) Est GFR (Non-Af Amer) BUN/Creatinine Ratio (10-20) Glucose (70-99) mg/dl Lactate (0.4-2.0) mmol/L Calcium (8.5-10.1) mg/dl Magnesium (1.8-2.4) mg/dl Total Bilirubin (0.2-1) mg/dl AST (15-37) U/L ALT (12-78) U/L Alkaline Phosphatase (45-117) U/L Troponin I (0-0.045) ng/ml Total Protein (6.4-8.2) gm/dl Albumin (3.4-5.0) gm/dl Globulin (2.5-4.0) gm/dl Albumin/Globulin Ratio (0.9-2) Digoxin (0.8-2.0) ng/ml Influenza Type A Ag Neg for Influ A (Neg) Influenza Type B Ag Neg for Influ B (Neg) 05/29/19 05/29/19 05/29/19 Range/Units 20:58 20:58 21:20 WBC (4.8-10.8) K/uL RBC (4.2-5.4) M/uL Hgb (12.0-16.0) g/dL Hct (37-47) % MCV (80-100) fL MCH (25-34) pg MCHC (32-36) g/dL RDW Std Deviation (36.4-46.3) fL RDW Coeff of Sonal (11.5-14.5) % Plt Count (130-400) K/uL MPV (7.4-10.4) fL Immature Gran % (Auto) % Neut % (Auto) % Lymph % (Auto) % Frontier % (Auto) % Eos % (Auto) % Baso % (Auto) % Immature Gran # (Auto) (0.00-0.02) K/uL Neut # (Auto) (1.4-6.5) K/uL Lymph # (Auto) (1.2-3.4) K/uL Frontier # (Auto) (0.11-0.59) K/uL Eos # (Auto) (0-0.5) K/uL Baso # (Auto) (0-0.2) K/uL PT (9.0-12.0) Seconds INR (0.9-1.1) APTT (21.0-31.0) Seconds PTT Ratio Sodium 137 (136-145) mmol/L Potassium 3.7 (3.5-5.1) mmol/L Chloride 102 (98-107) mmol/L Carbon Dioxide 30 (21-32) mmol/L Anion Gap 5.0 (3-11) BUN 17 (7-18) mg/dl Creatinine 0.84 (0.6-1.2) mg/dl Est Cr Clr Drug Dosing 76.1 ml/min Est GFR ( Amer) 81.0 Est GFR (Non-Af Amer) 69.9 BUN/Creatinine Ratio 19.7 (10-20) Glucose 119 H (70-99) mg/dl Lactate 1.4 (0.4-2.0) mmol/L Calcium 9.3 (8.5-10.1) mg/dl Magnesium 1.9 (1.8-2.4) mg/dl Total Bilirubin 0.4 (0.2-1) mg/dl AST 14 L (15-37) U/L ALT 15 (12-78) U/L Alkaline Phosphatase 107 (45-117) U/L Troponin I < 0.015 (0-0.045) ng/ml Total Protein 7.4 (6.4-8.2) gm/dl Albumin 2.9 L (3.4-5.0) gm/dl Globulin 4.5 H (2.5-4.0) gm/dl Albumin/Globulin Ratio 0.6 L (0.9-2) Digoxin 1.6 (0.8-2.0) ng/ml Influenza Type A Ag (Neg) Influenza Type B Ag (Neg) Imaging Data Radiologist's Impression: Radiology results as stated below per my review and the radiologist's interpretation: XR chest 1V portable CLINICAL HISTORY: Shortness of breath. COMPARISON STUDY: Chest CT June 22, 2017. Chest radiograph April 10, 2019. FINDINGS: Old left humeral fracture is partially imaged. There is no pneumothorax or pleural effusion. Note is made of moderate cardiomegaly without evidence for pulmonary edema. There is mild right lower lung opacity. This has decreased since exam of April 10, 2019. IMPRESSION: 1. Mild right basilar opacity which has decreased since exam of April 10, 2019. 2. Moderate cardiomegaly without evidence for pulmonary edema. ACT 112: Negative or not required by law. Electronically signed by: Chucho Mcclendon M.D. 05/29/2019 8:33 PM ECG Data Attestation: I personally reviewed and interpreted this ECG as follows: Indication: + SOB/dyspnea Rate (beats per minute): 59 Rhythm: + sinus bradycardia ECG Intervals/blocks: + Right Bundle branch block and + Normal QT-c (467) ECG ST segments: no ST elevation ECG Findings: no PVCs Blood Pressure Blood Pressure Findings: Elevated blood pressure Blood Pressure Disposition: Referred to patients primary care provider MDM Narrative There is no leukocytosis or concerning anemia. No concerning coagulopathy. No significant electrolyte abnormality or kidney failure. No liver enzyme elevation. EKG shows a sinus rhythm, no acute ischemia. Cardiac enzyme testing x1 is not consistent with acute cardiac injury. Lactic acid level is not elevated making severe sepsis less likely. Digoxin level was normal. Influenza testing was negative. Chest film shows a persistent right lower lung pneumonia. No CHF or pneumothorax. The patient presents with persistent respiratory symptoms despite outpatient treatment with antibiotics for pneumonia. She was given a DuoNeb because of her wheezing. She received IV saline, IV Solu-Medrol, IV ceftriaxone and IV doxycycline. The patient has a persistent pneumonia, she is asthmatic, she has failed outpatient treatment. I do think a hospital stay would be warranted. I spoke to the patient and case management. The on-call hospitalist was consulted. Impression & Plan Pneumonia, Wheezing, Asthma exacerbation, Failure of outpatient treatment Discharge Plan Visit Data Chief Complaint: Respiratory Problems Stated Complaint: PNEUMONIA SYMPTOMS ED Provider: Tommy Richmond Discharge Problem: Pneumonia, Wheezing, Asthma exacerbation, Failure of outpatient treatment Patient Disposition: Being Evaluated by Hospitalist Forms Stand Alone Forms: My [facility] [employer] [employer] Prescriptions Prescriptions: No Action metoprolol succinate 100 mg tablet extended release 24 hr 100 mg PO DAILY Qty: 90 RF: 3 rivaroxaban 20 mg tablet 20 mg PO QPM Qty: 90 RF: 3 montelukast 10 mg tablet 10 mg PO HS Qty: 90 RF: 2 levalbuterol HCl 1.25 mg/3 mL solution for nebulization 1.25 mg inhalation Q4H Qty: 300 RF: 5 pantoprazole 40 mg tablet,delayed release (DR/EC) 40 mg PO DAILY Qty: 90 RF: 3 famotidine 20 mg tablet 20 mg PO DAILY Qty: 90 RF: 3 acetaminophen 325 mg tablet 650 mg PO Q4H PRN (Reason: mild pain) RF: 0 calcium carbonate-vitamin D3 500 mg(1,250mg) -200 unit tablet 1 tab PO DAILY RF: 0 cyanocobalamin (vitamin B-12) 500 mcg tablet,disintegrating 500 mcg SL DAILY Qty: 30 RF: 0 cyclosporine 0.05 % dropperette 1 drops ophthalmic (eye) BID RF: 0 digoxin 250 mcg tablet 250 mcg PO DAILY Qty: 90 RF: 0 docusate sodium 100 mg capsule 100 mg PO DAILY PRN (Reason: Constipation) RF: 0 flecainide 100 mg tablet 100 mg PO Q12H Qty: 180 RF: 0 furosemide 40 mg tablet 20 mg PO DAILY Qty: 90 RF: 0 gabapentin 300 mg capsule 300 mg PO DAILY Qty: 90 RF: 0 (DME) Oxygen Home Liters Per Minute See Dose Instructions .ROUTE .MEDSUPPLY Qty: 1 RF: 0 ipratropium bromide 0.02 % solution inhalation QID PRN (Reason: shortness of breath or wheezing) Qty: 312.5 RF: 0 latanoprost 0.005 % drops 1 drops OP HS RF: 0 levothyroxine 75 mcg tablet 75 mcg PO DAILY Qty: 90 RF: 0 sennosides-docusate sodium 8.6-50 mg tablet 1 tab PO DAILY Qty: 90 RF: 0 Symbicort 160-4.5 mcg/actuation HFA aerosol inhaler 2 puffs inhalation BID Qty: 1 RF: 0 levalbuterol tartrate [Xopenex HFA] 45 mcg/actuation Hfa Aerosol Inhaler 2 inh INHALATION Q4H RF: 0 atorvastatin 20 mg tablet 20 mg PO QPM RF: 0 Referrals Referrals: Harsha Venegas III, MD [Primary Care Provider] - Discharge Problem: Pneumonia Qualifiers: Pneumonia type: due to unspecified organism Laterality: right Lung location: lower lobe of lung Qualified Code(s): J18.9 - Pneumonia, unspecified organism Asthma exacerbation Qualifiers: Asthma severity: unspecified severity Asthma persistence: unspecified Qualified Code(s): J45.901 - Unspecified asthma with (acute) exacerbation The scribe's documentation has been prepared under my direction and personally reviewed by me in its entirety. I confirm that the note above accurately reflects all work, treatment, procedures, and medical decision making performed by me.
[2019-05-29 21:13] LABS: Basophils # (auto) 0.06 K/uL (0-0.2); Basophils % (auto) 0.6 %; Eosinophils % (auto) 2.9 %; Hematocrit (blood only) 41.2 % (37-47); Hemoglobin 13.2 g/dL (12.0-16.0); Immature Granulocytes # (auto) 0.02 K/uL (0.00-0.02); Immature Granulocytes % (auto) 0.2 %; Lymphocytes # (auto) 2.55 K/uL (1.2-3.4); Lymphocytes % (auto) 24.6 %; Mean Corpuscular Hemoglobin 29.7 pg (25-34); Mean Corpuscular Volume 92.6 fL (80-100); Mean Platelet Volume 9.9 fL (7.4-10.4); Monocytes # (auto) 0.81 K/uL (0.11-0.59); Monocytes % (auto) 7.8 %; Neutrophils # (auto) 6.63 K/uL (1.4-6.5); Neutrophils % (auto) 63.9 %; Platelet Count 285 K/uL (130-400); RDW Coefficient of Variation 13.9 % (11.5-14.5); RDW Standard Deviation 47.4 fL (36.4-46.3); Red Blood Count 4.45 M/uL (4.2-5.4); White Blood Count 10.37 K/uL (4.8-10.8)
[2019-05-29 21:29] LABS: Alanine Aminotransferase 15 U/L (12-78); Albumin Level 2.9 gm/dl (3.4-5.0); Aspartate Aminotransferase 14 U/L (15-37); BUN Creatinine Ratio 19.7 (10-20); Blood Urea Nitrogen 17 mg/dl (7-18); Calcium 9.3 mg/dl (8.5-10.1); Carbon Dioxide 30 mmol/L (21-32); Chloride 102 mmol/L (98-107); Creatinine Clr Calc Pharmacy 76.1 ml/min; Est GFR (Non-African American) 69.9; Glucose 119 mg/dl (70-99); Magnesium 1.9 mg/dl (1.8-2.4); Potassium 3.7 mmol/L (3.5-5.1); Sodium 137 mmol/L (136-145)
[2019-05-29] MEDS ORDERED: cefTRIAXone SODIUM 2,000 MG/70 ML BAG IV STA (21:31)
[2019-05-29 21:34] LABS: Albumin Globulin Ratio 0.6 (0.9-2); Alkaline Phosphatase 107 U/L (45-117); Bilirubin,Total 0.4 mg/dl (0.2-1); Globulin 4.5 gm/dl (2.5-4.0); Total Protein 7.4 gm/dl (6.4-8.2); Troponin I < 0.015 ng/ml (0-0.045)
[2019-05-29] MEDS ORDERED: DOXYCYCLINE HYCLATE 100 MG in DEXTROSE 5% 100 ML IV STA (21:39)
[2019-05-29 21:49] LABS: INR 1.2 (0.9-1.1); Partial Thromboplastin Ratio 1.2; Partial Thromboplastin Time 31.9 Seconds (21.0-31.0); Prothrombin Time 11.9 Seconds (9.0-12.0)
[2019-05-29] MEDS ORDERED: SODIUM CHLORIDE 0.9% 1000ML 1,000 ML IV ONE (21:54)
--- NOTE | 2019-05-29 22:57 | History & Physical Report ---
Date of Service May 29, 2019 Assessment & Plan (1) Asthma exacerbation: 73 y/o F Hx HTN, HLD, hypothyroidism, obese-LISSETH, diastolic CHF, asthma. The pt was recently treated for an asthma exacerbation and PNM. She failed to improve with a course of Zithromax and continues to have a productive cough, wheezing and SOB. A CXR in the ER demonstrated a RML infiltrate which was present on imaging 04/10. The pt has not had fevers and initial labs are unremarkable. 1) Asthma exacerbation +/- PNM. Unclear if the RML infiltrate is residual, representing gradual resolution, or if this is recurrent. The pt will be treated for PNM in addition to an asthma exacerbation therefore. Placed on Cef/Doxy, nebs, steroids, 02. 2) PAF - Sinus on admission - cont Flecainide, Dig, Metoprolol, Xarelto 3) CHF - no current evidence of volume overload - cont daily Lasix 4) Hypothyroidism - cont Synthroid 5) HTN, HLD - Atorvastatin, Metoprolol, Lasix Full code - Xarelto prophylaxis Total time for this admit including review of labs, meds, imaging, records - discussion with pt and ER attending - 39 min (2) Failure of outpatient treatment: History of Present Illness Chief Complaint: sough, SOB Primary Care Provider: Harsha Venegas MD 73 y/o F Hx HTN, HLD, hypothyroidism, obese-LISSETH, diastolic CHF, asthma. The pt was recently treated for an asthma exacerbation and PNM. She failed to improve with a course of Zithromax and continues to have a productive cough, wheezing and SOB. A CXR in the ER demonstrated a RML infiltrate which was present on imaging 04/10. The pt has not had fevers and initial labs are unremarkable. PMH: 1) Diastolic CHF 2) Morbid obesity 3) LISSETH - 02 only HS 4) Paroxysmal AF - Xarelto 5) Hypothyroidism 6) Borderline DM 7) HTN 8) HLD 9) RBBB Surgical: 1) Cholecystectomy 2) Hysterectomy 3) TKA Social: Never smoked, does not drink Family: PE, skin CA Allergies Allergy/AdvReac Type Severity Reaction Status Date / Time pecan nut Allergy Unknown . Verified 05/15/19 13:25 Sulfa (Sulfonamide AdvReac Mild YEAST Verified 05/15/19 13:25 Antibiotics) INFECTION Home Medications Home Medications Medication Instructions Recorded Confirmed Type levalbuterol tartrate [Xopenex HFA] 2 inh INHALATION Q4H 05/05/18 05/15/19 History acetaminophen 325 mg tablet 650 mg PO Q4H PRN tab 01/14/19 05/29/19 History budesonide-formoterol HFA 160 2 puffs INHALATION BID #1 gm 01/14/19 05/15/19 History mcg-4.5 mcg/actuation aerosol inhaler calcium carbonate 500 mg (1,250 1 tab PO DAILY tab 01/14/19 05/29/19 History mg)-vitamin D3 200 unit tablet cyanocobalamin (vitamin B-12) 500 500 mcg SL DAILY #30 tab 01/14/19 05/29/19 History mcg disintegrating tablet,sublingual cyclosporine 0.05 % eye drops in a 1 drops OPHTHALMIC (EYE) BID ea 01/14/19 05/29/19 History dropperette digoxin 250 mcg (0.25 mg) tablet 250 mcg PO DAILY #90 tab 01/14/19 05/29/19 History docusate sodium 100 mg capsule 100 mg PO DAILY PRN cap 01/14/19 05/29/19 History flecainide 100 mg tablet 100 mg PO Q12H #180 tab 01/14/19 05/15/19 History furosemide 40 mg tablet 20 mg PO DAILY #90 tab 01/14/19 05/15/19 History gabapentin 300 mg capsule 300 mg PO DAILY #90 cap 01/14/19 05/15/19 History latanoprost 0.005 % eye drops 1 drops OP HS ml 01/14/19 05/29/19 History levothyroxine 75 mcg tablet 75 mcg PO DAILY #90 tab 01/14/19 05/29/19 History sennosides 8.6 mg-docusate sodium 1 tab PO DAILY #90 tab 01/14/19 05/29/19 History 50 mg tablet metoprolol succinate 100 mg 100 mg PO DAILY #90 tab 01/26/19 05/15/19 Rx tablet,extended release 24 hr rivaroxaban 20 mg tablet 20 mg PO QPM #90 tab 01/31/19 05/15/19 Rx montelukast 10 mg tablet 10 mg PO HS #90 tab 03/13/19 05/29/19 Rx levalbuterol HCl 1.25 mg/3 mL 1.25 mg INHALATION Q4H #300 ml 05/02/19 05/15/19 Rx solution for nebulization pantoprazole 40 mg tablet,delayed 40 mg PO DAILY #90 tab 05/15/19 05/29/19 Rx release famotidine 20 mg tablet 20 mg PO DAILY #90 tab 05/23/19 Rx atorvastatin 20 mg PO QPM 05/29/19 05/29/19 History Past Med/Surg History Medical History Afib Asthma Asthma Atrial fibrillation with rapid ventricular response (Inactive) Atrial flutter Chest pain (Inactive) COPD (chronic obstructive pulmonary disease) Humerus fracture (Inactive 07/05/13) Hypertension Hypothyroid Surgical History History of decompression of median nerve at carpal tunnel (neuroplasty) History of hernia repair History of laparoscopic cholecystectomy History of total abdominal hysterectomy History of total knee arthroplasty Status post endovenous radiofrequency ablation of saphenous vein History of endovenous ablation of incompetent vein radiofrequency. Type of vein not specified in CCD Family History Father Pulmonary embolism Skin cancer Social History Preferred Language: Marshallese Communication Ability: Effective Beliefs That Will Affect Care: None Current Living Situation: Alone Feels Safe at Home: Yes Smoking Status: Never smoker Hx Alcohol Use: No Hx Substance Use: No caffeine: Yes Seatbelt Use: always Review of Systems Review of Systems: Gen: Denies fevers, night sweats, rigors, fatigue, malaise, weight loss/gain ENT: Denies congestion, throat pain, hearing loss Eyes: Denies acute visual changes CV: Denies CP, palpitations Pulmonary: Productive cough, SOB and wheezing as above GI: Denies N/V, diarrhea, constipation Neuro: Denies acute or unilateral weakness, acute gait impairment, headache or acute visual changes Musculoskeletal: Denies joint pain, inflammation Endocrine: Denies polydipsia, polyuria Skin: Denies acute rashes or ulcers Physical Exam Physical Exam: General: AAO x 3, no distress ENT: No erythema or exudates, no thrush Eyes: DANIEL, EOMI Head and neck: Normocephalic, atraumatic, neck is supple. Chest/heart: Nontender, S1,2, RRR, no murmurs, no gallops Lungs: Mild end-expiratory wheezing BL, no audible crackles Abdomen: Nontender, nondistended, BS+ Neuro: AAO x 3, speech is clear, no unilateral weakness or loss of sensation, coordination intact - able to ambulate Musculoskeletal: No joint inflammation, muscle tenderness, FROM Skin: No acute rashes or ulcers Extremities: + LE edema BL Results & Data Vital Signs (Past 12 Hours) Vital Signs Temp Pulse Pulse Resp BP BP Pulse Ox 05/29/19 21:49 64 22 188/77 H 98 05/29/19 20:53 59 L 20 95 05/29/19 20:37 58 L 18 180/67 H 95 05/29/19 19:29 98.1 F 62 24 215/71 H 92 Code Status & VTE Plan VTE Prophylaxis Plan VTE Prophylaxis will be ordered: Yes PG Care Time/CCT Total # of Minutes Spent Total Time Spent with Patient: Total time spent is greater than 50% in coordination of care (as documented) at patient's floor/unit and/or counseling patient: (1) Asthma exacerbation Asthma persistence: unspecified Asthma severity: unspecified severity Qualified Code(s): J45.901 - Unspecified asthma with (acute) exacerbation
[2019-05-29] MEDS ORDERED: POLYETHYLENE (MIRALAX) 17 GM PACK PO PRN (23:56)
[2019-05-29] MEDS ORDERED: LEVALBUTEROL HCL 1.25 MG/3 ML NEB NEB PRN (23:56)
[2019-05-29] MEDS ORDERED: MAGNESIUM HYDROXIDE SUSP 30 ML UDC PO PRN (23:56)
[2019-05-29] MEDS ORDERED: DOCUSATE SODIUM 100 MG CAP PO PRN (23:56)
[2019-05-29] MEDS ORDERED: ACETAMINOPHEN 325 MG TAB PO PRN (23:56)
[2019-05-29] MEDS ORDERED: ALUMINUM/MAGNESIUM SUSP 30 ML UDC PO PRN (23:56)
[2019-05-30 00:21] LABS: Basophils # (auto) 0.03 K/uL (0-0.2); Basophils % (auto) 0.3 %; Eosinophils # (auto) 0.05 K/uL (0-0.5); Eosinophils % (auto) 0.5 %; Hematocrit (blood only) 39.4 % (37-47); Immature Granulocytes # (auto) 0.04 K/uL (0.00-0.02); Immature Granulocytes % (auto) 0.4 %; Lymphocytes # (auto) 0.97 K/uL (1.2-3.4); Lymphocytes % (auto) 8.8 %; Mean Platelet Volume 9.5 fL (7.4-10.4); Monocytes # (auto) 0.08 K/uL (0.11-0.59); Monocytes % (auto) 0.7 %; Neutrophils # (auto) 9.91 K/uL (1.4-6.5); Neutrophils % (auto) 89.3 %; Platelet Count 261 K/uL (130-400); RDW Coefficient of Variation 13.9 % (11.5-14.5); RDW Standard Deviation 46.2 fL (36.4-46.3); Red Blood Count 4.33 M/uL (4.2-5.4); White Blood Count 11.08 K/uL (4.8-10.8)
[2019-05-30 00:39] LABS: BUN Creatinine Ratio 17.4 (10-20); Calcium 9.3 mg/dl (8.5-10.1); Creatinine Clr Calc Pharmacy 71.1 ml/min; Est GFR (African American) 74.6; Est GFR (Non-African American) 64.3; Potassium 3.9 mmol/L (3.5-5.1)
[2019-05-30] MEDS: ACETAMINOPHEN 325 MG TAB PO PRN ×3 (01:13→18:06)
[2019-05-30] MEDS: methylPREDNISolone 40 MG in SYRINGE 0 ML IV SCH ×4 (03:57→21:34)
[2019-05-30 04:32] LABS: Basophils # (auto) 0.01 K/uL (0-0.2); Basophils % (auto) 0.1 %; Hematocrit (blood only) 39.1 % (37-47); Hemoglobin 12.6 g/dL (12.0-16.0); Immature Granulocytes # (auto) 0.01 K/uL (0.00-0.02); Immature Granulocytes % (auto) 0.1 %; Lymphocytes % (auto) 9.5 %; Mean Corpuscular Hemoglobin 29.4 pg (25-34); Mean Corpuscular Hgb Conc 32.2 g/dL (32-36); Mean Corpuscular Volume 91.4 fL (80-100); Mean Platelet Volume 9.4 fL (7.4-10.4); Monocytes # (auto) 0.05 K/uL (0.11-0.59); Monocytes % (auto) 0.5 %; Neutrophils # (auto) 8.51 K/uL (1.4-6.5); Neutrophils % (auto) 89.8 %; Platelet Count 257 K/uL (130-400); RDW Coefficient of Variation 13.9 % (11.5-14.5); RDW Standard Deviation 46.1 fL (36.4-46.3); Red Blood Count 4.28 M/uL (4.2-5.4); White Blood Count 9.48 K/uL (4.8-10.8)
[2019-05-30 04:51] LABS: BUN Creatinine Ratio 16.9 (10-20); Calcium 8.8 mg/dl (8.5-10.1); Creatinine Clr Calc Pharmacy 73.5 ml/min; Est GFR (African American) 77.7; Magnesium 2.1 mg/dl (1.8-2.4); Potassium 4.2 mmol/L (3.5-5.1)
[2019-05-30] MEDS: LEVOTHYROXINE SODIUM 75 MCG TABLET PO SCH (05:46)
[2019-05-30] MEDS: FUROSEMIDE 20 MG TAB PO SCH (08:01)
[2019-05-30] MEDS: ALBUT/IPRATROP 3MG/0.5MG NEB 3 ML VIAL NEB SCH ×4 (08:01→19:17)
[2019-05-30] MEDS: METOPROLOL SUCC 50MG EXT REL TAB PO SCH (08:01)
[2019-05-30] MEDS: FAMOTIDINE 20 MG TAB PO SCH (08:02)
[2019-05-30] MEDS: GABAPENTIN 300 MG CAP PO SCH (08:02)
[2019-05-30] MEDS: FLECAINIDE ACETATE 100 MG TABLET PO SCH ×2 (08:03→20:32)
[2019-05-30] MEDS: PANTOprazole 40 MG TAB PO SCH (08:03)
[2019-05-30] MEDS: CYANOCOBALAMIN 500 MCG TABLET (VITAMIN B-12) PO SCH (08:04)
[2019-05-30] MEDS: DOXYCYCLINE HYCLATE 100 MG in DEXTROSE 5% 100 ML IV SCH ×2 (09:40→22:10)
[2019-05-30] MEDS ORDERED: GLUCAGON FOR INJ 1 MG VIAL SQ PRN (09:46)
[2019-05-30] MEDS ORDERED: DEXTROSE 50% 50 ML SYRINGE IV PRN (09:46)
[2019-05-30] MEDS ORDERED: CARBOHYDRATES FOR HYPOGLYCEMIA PO PRN (09:46)
[2019-05-30] MEDS ORDERED: GLUCOSE 10 TABS/TUBE PO PRN (09:46)
[2019-05-30] MEDS ORDERED: GLUCOSE 40% GEL 15 GM TUBE PO PRN (09:46)
[2019-05-30] MEDS: HydrALAZINE HCL 20 MG/ML VIAL IV PRN ×2 (11:17→19:18)
[2019-05-30] MEDS: INSULIN ASPART 100 UNITS/ML 3 ML PEN SC SCH ×3 (11:41→20:28)
[2019-05-30] MEDS: DIGOXIN 0.25 MG TAB PO SCH (17:13)
[2019-05-30] MEDS: RIVAROXABAN 20 MG TAB PO SCH (17:14)
--- NOTE | 2019-05-30 19:17 | Hospitalist Progress Note ---
Date of Service May 30, 2019 Assessment & Plan (1) Asthma exacerbation: 73 y/o F Hx HTN, HLD, hypothyroidism, PAF on Xarelto, obese-LISSETH, diastolic CHF, asthma. The pt was recently treated for an asthma exacerbation and PNM. She failed to improve with a course of Zithromax and continues to have a productive cough, wheezing and SOB. A CXR in the ER demonstrated a RLL infiltrate which was present on imaging 04/10 but is now improved. The pt has not had fevers and initial labs are unremarkable. Asthma exacerbation +/- PNM. Unclear if the RLL infiltrate is residual, representing gradual resolution, or if this is recurrent. The pt will be treated for PNM in addition to an asthma exacerbation therefore. Placed on Cef/Doxy, nebs, steroids, 02. Seems to be improved from a respiratory standpoint. Not requiring O2 -continue ceftriaxone, doxy -continue steroids and reduce dose to q8h -continue nebs scheduled -continue O2 as needed (2) Hyperlipemia: -continue Atorvastatin (3) Type 2 diabetes mellitus: HgbA1C 6.8% in 06/01- Added SSI, accuchecks -will add basal insulin prn (4) Hypothyroid: TSH 2.6 in 06/01- - cont Synthroid (5) Atrial fibrillation: Tele in NSR PAF - Sinus on admission - cont Flecainide, Dig, Metoprolol, Xarelto (6) Sinus pain: moder-severe CHEW presetn prior to admission With +TTP over max sinuses -check CT sinuses -continue abx (7) Headache: likely secondary to sinusitis -check CT sinuses, head (8) CHF (congestive heart failure): CHF - no current evidence of volume overload - cont daily Lasix (9) COPD with acute exacerbation: continue bronchodilators (10) Hypertension: BPs controlled -continue home meds (11) Acute DVT (deep venous thrombosis): continue Xarelto Subjective Reports having a bad frontal headache for the last 3 days. No associated nausea or vomiting, no photophobia. Has had intermittent dizziness for the last several months. Cough is improved today, no CP or SOB. Is having productive cough of clear to white sputum. Is also having sweats today and had them prior to admission. Review of Systems Review of Systems: All systems reviewed & are unremarkable except as noted in HPI & below Physical Exam Constitutional: WD/WN, vitals as above Eyes: PERRL, conjunctivae normal, anicteric sclerae no anisocoria, no EOM movement deficit and no nystagmus ENMT: external ear and nose normal, oropharynx normal (+TTP over frontal sinuses) Neck: trachea midline, no thyromegaly Respiratory: normal respiratory effort, lungs clear to auscultation normal respiratory effort; no labored breathing Auscultation: + wheezes (occasional, scattered bilat) Cardiovascular: RRR, no murmur, no edema Chest (Breasts): Chest: normal inspection of chest Gastrointestinal (Abdomen): normal bowel sounds, soft, nontender, no hepatosplenomegaly Musculoskeletal: Extremities: extremities normal to inspection; no cyanosis and no clubbing Skin: no rashes, warm and dry Neurologic: moves all extremities and awake; no focal motor deficits Psychiatric: A+Ox3, euthymic affect Lymphatic: no lymphedema Results & Data Vital Signs (Past 12 Hours) Vital Signs Temp Pulse Pulse Pulse Resp BP BP 05/30/19 17:13 68 05/30/19 16:31 63 05/30/19 16:00 63 05/30/19 15:50 66 18 05/30/19 15:25 36.7 C 68 18 133/80 05/30/19 12:30 36.6 C 69 22 166/70 H 05/30/19 12:18 36.5 C 71 18 189/72 H 05/30/19 11:14 61 20 05/30/19 10:33 60 202/74 H 05/30/19 08:04 88 20 05/30/19 08:00 61 05/30/19 07:51 36.4 C L 65 26 H 201/86 H Pulse Ox 05/30/19 17:13 05/30/19 16:31 05/30/19 16:00 05/30/19 15:50 93 05/30/19 15:25 93 05/30/19 12:30 93 05/30/19 12:18 95 05/30/19 11:14 92 05/30/19 10:33 05/30/19 08:04 96 05/30/19 08:00 05/30/19 07:51 95 Laboratory Results 05/30/19 05/30/19 05/30/19 Range/Units 20:14 16:23 11:23 WBC (4.8-10.8) K/uL RBC (4.2-5.4) M/uL Hgb (12.0-16.0) g/dL Hct (37-47) % MCV (80-100) fL MCH (25-34) pg MCHC (32-36) g/dL RDW Std Deviation (36.4-46.3) fL RDW Coeff of Sonal (11.5-14.5) % Plt Count (130-400) K/uL MPV (7.4-10.4) fL Immature Gran % (Auto) % Neut % (Auto) % Lymph % (Auto) % [place] % (Auto) % Eos % (Auto) % Baso % (Auto) % Immature Gran # (Auto) (0.00-0.02) K/uL Neut # (Auto) (1.4-6.5) K/uL Lymph # (Auto) (1.2-3.4) K/uL [place] # (Auto) (0.11-0.59) K/uL Eos # (Auto) (0-0.5) K/uL Baso # (Auto) (0-0.2) K/uL Sodium (136-145) mmol/L Potassium (3.5-5.1) mmol/L Chloride (98-107) mmol/L Carbon Dioxide (21-32) mmol/L Anion Gap (3-11) BUN (7-18) mg/dl Creatinine (0.6-1.2) mg/dl Est Cr Clr Drug Dosing ml/min Est GFR ( Amer) Est GFR (Non-Af Amer) BUN/Creatinine Ratio (10-20) Glucose (70-99) mg/dl POC Glucose 211 H 162 H 179 H (70-99) Calcium (8.5-10.1) mg/dl Magnesium (1.8-2.4) mg/dl Hepatitis C Ab Screen (Neg) 05/30/19 05/30/19 05/30/19 Range/Units 04:18 04:18 04:18 WBC 9.48 (4.8-10.8) K/uL RBC 4.28 (4.2-5.4) M/uL Hgb 12.6 (12.0-16.0) g/dL Hct 39.1 (37-47) % MCV 91.4 (80-100) fL MCH 29.4 (25-34) pg MCHC 32.2 (32-36) g/dL RDW Std Deviation 46.1 (36.4-46.3) fL RDW Coeff of Sonal 13.9 (11.5-14.5) % Plt Count 257 (130-400) K/uL MPV 9.4 (7.4-10.4) fL Immature Gran % (Auto) 0.1 % Neut % (Auto) 89.8 % Lymph % (Auto) 9.5 % [place] % (Auto) 0.5 % Eos % (Auto) 0.0 % Baso % (Auto) 0.1 % Immature Gran # (Auto) 0.01 (0.00-0.02) K/uL Neut # (Auto) 8.51 H (1.4-6.5) K/uL Lymph # (Auto) 0.90 L (1.2-3.4) K/uL [place] # (Auto) 0.05 L (0.11-0.59) K/uL Eos # (Auto) 0.00 (0-0.5) K/uL Baso # (Auto) 0.01 (0-0.2) K/uL Sodium 135 L (136-145) mmol/L Potassium 4.2 (3.5-5.1) mmol/L Chloride 103 (98-107) mmol/L Carbon Dioxide 29 (21-32) mmol/L Anion Gap 3.0 (3-11) BUN 15 (7-18) mg/dl Creatinine 0.87 (0.6-1.2) mg/dl Est Cr Clr Drug Dosing 73.5 ml/min Est GFR ( Amer) 77.7 Est GFR (Non-Af Amer) 67.0 BUN/Creatinine Ratio 16.9 (10-20) Glucose 195 H (70-99) mg/dl POC Glucose (70-99) Calcium 8.8 (8.5-10.1) mg/dl Magnesium 2.1 (1.8-2.4) mg/dl Hepatitis C Ab Screen Neg (Neg) PG Care Time/CCT Total # of Minutes Spent Total Time Spent with Patient: Total time spent is greater than 50% in coordination of care (as documented) at patient's floor/unit and/or counseling patient: (1) Asthma exacerbation Asthma persistence: unspecified Asthma severity: unspecified severity Qualified Code(s): J45.901 - Unspecified asthma with (acute) exacerbation
--- NOTE | 2019-05-30 20:13 | CT Scan Report ---
CT head/brain wo con CLINICAL HISTORY: 73 years-old Female with headache, head trauma. Acute headache with head trauma TECHNIQUE: Multiple axial CT images of the head were obtained without contrast. A dose lowering tech nique was utilized adhering to the principles of ALARA. COMPARISON: CT of the paranasal sinuses of same day FINDINGS: No acute intracranial hemorrhage, midline shift, intracranial mass, hydrocephalus, territorial ischem ia or abnormal extra-axial collection. Mild age-related involutional changes. Mild patchy white matte r hypodensities suggest chronic microvascular ischemic disease. The calvarium is intact. Mastoid air cells are clear and the left. Trace right mastoid effusion. Min imal partially imaged mucosal thickening of the left maxillary sinus with mild mucosal thickening of the ethmoid air cells. Soft tissues and orbits are unremarkable. IMPRESSION: No acute intracranial abnormality or calvarial fracture. ACT 112: Negative or not required by law. The above report was generated using voice recognition software. It may contain grammatical, syntax o r spelling errors. Electronically signed by: Everett Jack M.D. 05/30/2019 8:11 PM
--- NOTE | 2019-05-30 20:20 | CT Scan Report ---
CT sinus wo con HISTORY: 73 years-old Female r/o sinusitis acute headache with sinus pressure COMPARISON: Head CT of same day TECHNIQUE: Multiple axial CT images of the paranasal sinuses were obtained without the use of IV cont rast. A dose lowering technique was used consistent with the principals of ABRAN. FINDINGS: Soft tissues are unremarkable. The bilateral orbits are within normal limits. Trace right mastoid eff usion. Left mastoid air cells and bilateral middle ear cavities are clear. Clear right maxillary and bilateral sphenoid sinuses. Mild polypoid mucosal thickening of the inferior left maxillary sinus wit h a 2 mm metallic density focus also noted. Mild mucosal thickening of the inferior frontal sinuses w ith mild to moderate mucosal thickening of the ethmoid air cells. There is partial opacification with narrowing of the frontoethmoidal recesses. The maxillary ostiomeatal units and bilateral sphenoethmo idal recesses are patent. There is mild leftward bowing and spurring of the nasal septum. There is mi ld mucosal thickening of the bilateral nasal turbinates. Bilateral neymar bullosa. No large Shyla ce ll. Nelly yajaira is unremarkable. IMPRESSION: 1. Paranasal sinus disease as above, mild to moderate within the ethmoid air cells. 2. Partial opacification with narrowing of the bilateral frontoethmoidal recesses. The remaining sinu s outflow tracts are patent. 3. Mild leftward bowing and spurring of the nasal septum. 4. Bilateral neymar bullosa. 5. Trace right mastoid effusion. ACT 112: Negative or not required by law. The above report was generated using voice recognition software. It may contain grammatical, syntax o r spelling errors. Electronically signed by: Everett Jack M.D. 05/30/2019 8:19 PM
[2019-05-30] MEDS: ATORVASTATIN 20 MG TAB PO SCH (20:32)
[2019-05-30] MEDS: MONTELUKAST SODIUM 10 MG TABLET PO SCH (20:32)
[2019-05-30] MEDS: TRAMADOL HCL 50 MG TABLET PO PRN (20:33)
[2019-05-30] MEDS: cefTRIAXone SODIUM 2,000 MG in DEXTROSE 5% 50 ML IV SCH (21:34)
[2019-05-30] MEDS: LATANOPROST 0.005% OP SOLN 2.5 ML BTL OP SCH (21:35)
[2019-05-31] MEDS: methylPREDNISolone 40 MG in SYRINGE 0 ML IV SCH ×2 (05:23→13:22)
[2019-05-31] MEDS: LEVOTHYROXINE SODIUM 75 MCG TABLET PO SCH (05:23)
[2019-05-31] MEDS: ALBUT/IPRATROP 3MG/0.5MG NEB 3 ML VIAL NEB SCH ×4 (07:25→19:14)
[2019-05-31] MEDS: HydrALAZINE HCL 20 MG/ML VIAL IV PRN (07:32)
[2019-05-31] MEDS: ACETAMINOPHEN 325 MG TAB PO PRN ×2 (07:32→19:30)
[2019-05-31] MEDS: FUROSEMIDE 20 MG TAB PO SCH (07:33)
[2019-05-31] MEDS: FAMOTIDINE 20 MG TAB PO SCH (07:33)
[2019-05-31] MEDS: METOPROLOL SUCC 50MG EXT REL TAB PO SCH (07:33)
[2019-05-31] MEDS: CYANOCOBALAMIN 500 MCG TABLET (VITAMIN B-12) PO SCH (07:33)
[2019-05-31] MEDS: PANTOprazole 40 MG TAB PO SCH (07:33)
[2019-05-31] MEDS: FLECAINIDE ACETATE 100 MG TABLET PO SCH ×2 (07:34→20:55)
[2019-05-31] MEDS: GABAPENTIN 300 MG CAP PO SCH (07:34)
[2019-05-31] MEDS: DOXYCYCLINE HYCLATE 100 MG in DEXTROSE 5% 100 ML IV SCH ×2 (09:02→21:50)
[2019-05-31] MEDS: INSULIN ASPART 100 UNITS/ML 3 ML PEN SC SCH ×4 (09:02→20:56)
[2019-05-31] MEDS: RIVAROXABAN 20 MG TAB PO SCH (16:00)
[2019-05-31] MEDS: DIGOXIN 0.25 MG TAB PO SCH (16:00)
[2019-05-31] MEDS: TRAMADOL HCL 50 MG TABLET PO PRN ×2 (16:27→20:51)
--- NOTE | 2019-05-31 17:00 | Hospitalist Progress Note ---
Date of Service May 31, 2019 Assessment & Plan (1) Asthma exacerbation: Asthma exacerbation +/- PNM. Unclear if the RLL infiltrate is residual, representing gradual resolution, or if this is recurrent. The pt will be treated for PNM in addition to an asthma exacerbation therefore. Placed on Cef/Doxy, nebs, steroids, 02. Seems to be improved from a respiratory standpoint. Not requiring O2 -continue ceftriaxone, doxy -continue steroidstransition to oral prednisone -continue nebs scheduled -continue O2 as needed, although she does not seem to be needing this much anymorewill want to see how she does with exertion. (2) Headache: She complains again of a headache off and on today. She relates it to her blood pressure, but given that she shows no confusion, visual problems, neurologic findings, I do not believe she is suffering from a hypertensive urgency. More than likely she has a headache and the pain from the headache as well as stress is raising her blood pressure, rather than the other way around. She has some sinus findings on CT that could definitely explain it, and certainly it would be quite likely to also have a tension headache from her overall illness and hospital stay. Continue to follow closely, continue as needed medications. (3) Hyperlipemia: -continue Atorvastatin (4) Type 2 diabetes mellitus: HgbA1C 6.8% in Sugars have been acceptable, follow with reduction in steroids (5) Hypothyroid: TSH 2.6 in - cont Synthroid (6) Atrial fibrillation: Heart rate good PAF - Sinus on admission - cont Flecainide, Dig, Metoprolol, Xarelto (7) CHF (congestive heart failure): CHF - no current evidence of volume overload -continue home medications and follow (8) COPD with acute exacerbation: See above as it relates to her asthma and pneumonia (9) Hypertension: As above noted, I suspect her blood pressure rises our effect of the headache rather than cause. Continue current blood pressure regimen, treat headache, follow (10) DVT prophylaxis: Xarelto (11) Discharge planning issues: Given that she talks a lot about falls, and does appear very weak and frail, as well as somewhat anxiousPT/OT eval and treat. As long as it is clear through the day that the headaches are causing the rise in the blood pressure rather than the other way around, anticipate being at least able to move her to medical today. Subjective Breathing feeling better, headache feeling better. Still with a little bit of a cough, but breathing much better than whenever she came in. Has not really been up much, although she is in the chair whenever I talk to her this morning. Relates having a fall at home last week in the bathroom. She then talks a lot about a fall from about 2 years ago, but then denies having had much of any other falls in between last week or 2 years ago. She relates she does feel safe at home, but again has not been up and walking around very much. Review of Systems Review of Systems: All systems reviewed & are unremarkable except as noted in HPI & below Physical Exam Physical Exam: General she is awake alert oriented x3, pleasantly anxious but no distress. HEENT normocephalic atraumatic mucous membranes are moist. Cardio is regular without rubs murmurs gallops. Lungs are diminished throughout may be a faint wheeze in the right upper lung field, she has a lot of upper airway expiratory wheezing type sounds that are only present whenever she breathes for physical exam, not present at rest or conversationally. No accessory muscle use, no other rales rhonchi or wheezes good effort. Extremities show no cyanosis or clubbing, she does have scattered varicosities. Skin shows no rashes no pallor or icterus. Cranial nerves II through XII are grossly intact gross motor and sensory intact. Pleasantly anxious. Wearing [employer]. Results & Data Vital Signs (Past 12 Hours) Vital Signs Temp Pulse Pulse Pulse Resp BP BP 05/31/19 16:22 97.9 F 70 18 177/68 H 05/31/19 16:00 78 05/31/19 15:30 53 L 05/31/19 15:27 56 L 18 05/31/19 11:26 55 L 18 05/31/19 11:23 97.7 F 49 L 19 136/67 05/31/19 09:00 138/66 05/31/19 08:00 73 05/31/19 07:26 59 L 16 05/31/19 07:23 97.9 F 59 L 20 181/78 H Pulse Ox 05/31/19 16:22 93 05/31/19 16:00 05/31/19 15:30 05/31/19 15:27 97 05/31/19 11:26 94 05/31/19 11:23 96 05/31/19 09:00 05/31/19 08:00 05/31/19 07:26 97 05/31/19 07:23 96 PG Care Time/CCT Total # of Minutes Spent Total Time Spent with Patient: Total time spent is greater than 50% in coordination of care (as documented) at patient's floor/unit and/or counseling patient: (1) Asthma exacerbation Asthma persistence: unspecified Asthma severity: unspecified severity Qualified Code(s): J45.901 - Unspecified asthma with (acute) exacerbation
[2019-05-31] MEDS: ATORVASTATIN 20 MG TAB PO SCH (20:54)
[2019-05-31] MEDS: MONTELUKAST SODIUM 10 MG TABLET PO SCH (20:55)
[2019-05-31] MEDS: LATANOPROST 0.005% OP SOLN 2.5 ML BTL OP SCH (20:56)
[2019-05-31] MEDS: OXYMETAZOLINE 0.05% 30 ML BTL SCH (21:49)
[2019-05-31] MEDS: cefTRIAXone SODIUM 2,000 MG in DEXTROSE 5% 50 ML IV SCH (21:49)
[2019-06-01 05:51] LABS: Estimated Average Glucose 140 mg/dl; Hemoglobin A1C 6.5 % (4.5-5.6)
[2019-06-01] MEDS: LEVOTHYROXINE SODIUM 75 MCG TABLET PO SCH (06:11)
[2019-06-01] MEDS: ALBUT/IPRATROP 3MG/0.5MG NEB 3 ML VIAL NEB SCH ×4 (07:12→19:03)
[2019-06-01 07:34] LABS: Basophils # (auto) 0.01 K/uL (0-0.2); Basophils % (auto) 0.1 %; Eosinophils # (auto) 0.01 K/uL (0-0.5); Eosinophils % (auto) 0.1 %; Hematocrit (blood only) 38.5 % (37-47); Hemoglobin 12.4 g/dL (12.0-16.0); Immature Granulocytes # (auto) 0.05 K/uL (0.00-0.02); Immature Granulocytes % (auto) 0.4 %; Lymphocytes # (auto) 2.72 K/uL (1.2-3.4); Lymphocytes % (auto) 20.7 %; Mean Corpuscular Hemoglobin 29.6 pg (25-34); Mean Corpuscular Hgb Conc 32.2 g/dL (32-36); Mean Corpuscular Volume 91.9 fL (80-100); Mean Platelet Volume 9.5 fL (7.4-10.4); Monocytes # (auto) 1.02 K/uL (0.11-0.59); Monocytes % (auto) 7.8 %; Neutrophils # (auto) 9.31 K/uL (1.4-6.5); Neutrophils % (auto) 70.9 %; Platelet Count 266 K/uL (130-400); RDW Coefficient of Variation 14.3 % (11.5-14.5); RDW Standard Deviation 48.5 fL (36.4-46.3); Red Blood Count 4.19 M/uL (4.2-5.4); White Blood Count 13.12 K/uL (4.8-10.8)
[2019-06-01 08:14] LABS: BUN Creatinine Ratio 27.7 (10-20); Calcium 8.8 mg/dl (8.5-10.1); Creatinine Clr Calc Pharmacy 77.5 ml/min; Est GFR (African American) 83.4; Potassium 3.9 mmol/L (3.5-5.1)
[2019-06-01] MEDS: FUROSEMIDE 20 MG TAB PO SCH (08:27)
[2019-06-01] MEDS: GABAPENTIN 300 MG CAP PO SCH (08:27)
[2019-06-01] MEDS: OXYMETAZOLINE 0.05% 30 ML BTL SCH ×2 (08:27→21:25)
[2019-06-01] MEDS: INSULIN ASPART 100 UNITS/ML 3 ML PEN SC SCH ×4 (08:27→21:34)
[2019-06-01] MEDS: predniSONE 20 MG TAB PO SCH (08:28)
[2019-06-01] MEDS: PANTOprazole 40 MG TAB PO SCH (08:28)
[2019-06-01] MEDS: FAMOTIDINE 20 MG TAB PO SCH (08:28)
[2019-06-01] MEDS: CYANOCOBALAMIN 500 MCG TABLET (VITAMIN B-12) PO SCH (08:30)
[2019-06-01] MEDS: METOPROLOL SUCC 50MG EXT REL TAB PO SCH (08:30)
[2019-06-01] MEDS: DOXYCYCLINE HYCLATE 100 MG in DEXTROSE 5% 100 ML IV SCH ×2 (10:02→22:31)
[2019-06-01] MEDS: FLECAINIDE ACETATE 100 MG TABLET PO SCH ×2 (10:37→21:25)
--- NOTE | 2019-06-01 11:01 | Hospitalist Progress Note ---
Date of Service June 01, 2019 Assessment & Plan (1) Asthma exacerbation: Asthma exacerbation +/- PNM. Unclear if the RLL infiltrate is residual, representing gradual resolution, or if this is recurrent. The pt will be treated for PNM in addition to an asthma exacerbation therefore. Placed on Cef/Doxy, nebs, steroids, 02. Seems to be improved from a respiratory standpoint. Not requiring O2 Overall much improved -continue ceftriaxone, doxy and will likely convert to oral antibiotics tomorrow -continue steroidstransitioned to oral prednisone-will complete a 5-day course of 40 mg daily -continue nebs scheduled -continue O2 as needed, although she does not seem to be needing this much anymorewill want to see how she does with exertion prior to discharge (2) Headache: Continues to have headache although is overall improved with the addition of Afrin and with continued steroid and antibiotics for sinusitis seen on CT She relates it to her blood pressure, but given that she shows no confusion, visual problems, neurologic findings, I do not believe she is suffering from a hypertensive urgency. More than likely she has a headache and the pain from the headache as well as stress is raising her blood pressure, rather than the other way around. She has some sinus findings on CT that could definitely explain it, and certainly it would be quite likely to also have a tension headache from her overall illness and hospital stay. Continue to follow closely, continue as needed medications. -Continue Tylenol as needed, tramadol as needed -Continue prednisone, antibiotics -Continue improved blood pressure control (3) Hyperlipemia: -continue Atorvastatin (4) Type 2 diabetes mellitus: HgbA1C 6.8% in Sugars have been acceptable, follow with reduction in steroids (5) Hypothyroid: TSH 2.6 in - cont Synthroid (6) Atrial fibrillation: Continues in regular rhythm on examination PAF - Sinus on admission - cont Flecainide, Dig, and Xarelto Digoxin level 1.6 here which is within the normal range but is higher level of normal With significant bradycardia in the 40s and 50s and chronic dizziness and sometimes palpitations with slow heart rate at home -We will reduce metoprolol down to 75 mg once daily for bradycardia and see if this improves her chronic dizziness -Consider reduction in digoxin as well (7) CHF (congestive heart failure): Chronic diastolic CHF - no current evidence of volume overload -continue home medications and follow (8) COPD with acute exacerbation: See above as it relates to her asthma and pneumonia (9) Hypertension: Blood pressures remain quite elevated in the 170 systolic Some could be from the steroid use, also could be from pain as noted above -Begin amlodipine 5 mg daily -Reducing Toprol-XL to 75 mg daily as above for bradycardia and symptoms of dizziness -Continue to monitor BP and adjust medication as needed (10) DVT prophylaxis: Xarelto (11) Discharge planning issues: Given that she talks a lot about falls, and does appear very weak and frail, as well as somewhat anxiousPT/OT eval and treat. -Continued stay for blood pressure and headache control Subjective Patient reports she still has a frontal headache but it is improved from previous. Blood pressure seems to correlate with her headache and when her headache improves, her blood pressure improves. Reports her sinus pain is also improving. Cough and shortness of breath again improving. She does not feel ready yet to go home though. We discussed improved management of her blood pressure. She also tells me that there have been some times at home where she has felt really strong heart palpitations yet her heart rate is low at home. She has been quite bradycardic here in the 40s and 50s at times. She also reports ongoing dizziness for many months. Perhaps this is related to her bradycardia. Her metoprolol had to be held this morning for heart rate in the 40s. Denies chest pain. Is moving her bowels and tolerating p.o. Review of Systems Review of Systems: All systems reviewed & are unremarkable except as noted in HPI & below Physical Exam Constitutional: WD/WN, vitals as above (Sitting in chair at bedside) + obese Eyes: + anicteric sclerae ENMT: external ear and nose normal, oropharynx normal (Improved +TTP over frontal sinuses) Neck: trachea midline, no thyromegaly Respiratory: normal respiratory effort, lungs clear to auscultation Cardiovascular: RRR, no murmur, no edema Chest (Breasts): Chest: normal inspection of chest Gastrointestinal (Abdomen): normal bowel sounds, soft, nontender, no hepatosplenomegaly Musculoskeletal: Extremities: extremities normal to inspection; no cyanosis and no clubbing Skin: no rashes, warm and dry Neurologic: moves all extremities and awake; no focal motor deficits Psychiatric: A+Ox3, euthymic affect Lymphatic: no lymphedema Results & Data Vital Signs (Past 12 Hours) Vital Signs Temp Pulse Resp BP BP Pulse Ox 06/01/19 10:05 171/71 H 06/01/19 07:15 36.8 C 50 L 18 179/69 H 95 06/01/19 07:12 50 L 18 98 PG Care Time/CCT Total # of Minutes Spent Total Time Spent with Patient: Total time spent is greater than 50% in coordination of care (as documented) at patient's floor/unit and/or counseling patient: (1) Asthma exacerbation Asthma persistence: unspecified Asthma severity: unspecified severity Qualified Code(s): J45.901 - Unspecified asthma with (acute) exacerbation
[2019-06-01] MEDS ORDERED: AMLODIPINE BESYLATE 5 MG TAB PO SCH (11:15)
[2019-06-01] MEDS: METOPROLOL SUCC 25MG EXT REL TAB PO SCH (11:30)
[2019-06-01] MEDS: DIGOXIN 0.25 MG TAB PO SCH (16:10)
[2019-06-01] MEDS: RIVAROXABAN 20 MG TAB PO SCH (16:12)
[2019-06-01] MEDS: TRAMADOL HCL 50 MG TABLET PO PRN ×2 (17:16→21:31)
[2019-06-01] MEDS ORDERED: cycloSPORINE (RESTASIS) OP SCH (21:00)
[2019-06-01] MEDS: cefTRIAXone SODIUM 2,000 MG in DEXTROSE 5% 50 ML IV SCH (21:24)
[2019-06-01] MEDS: ATORVASTATIN 20 MG TAB PO SCH (21:26)
[2019-06-01] MEDS: LATANOPROST 0.005% OP SOLN 2.5 ML BTL OP SCH (21:26)
[2019-06-01] MEDS: MONTELUKAST SODIUM 10 MG TABLET PO SCH (21:26)
[2019-06-01] MEDS: ACETAMINOPHEN 325 MG TAB PO PRN (21:31)
[2019-06-02 06:14] LABS: Creatinine Clr Calc Pharmacy 80.5 ml/min; Est GFR (African American) 87.3; Est GFR (Non-African American) 75.3
[2019-06-02] MEDS: LEVOTHYROXINE SODIUM 75 MCG TABLET PO SCH (06:17)
[2019-06-02] MEDS: ALBUT/IPRATROP 3MG/0.5MG NEB 3 ML VIAL NEB SCH ×3 (07:12→15:21)
[2019-06-02] MEDS: PANTOprazole 40 MG TAB PO SCH (08:19)
[2019-06-02] MEDS: FAMOTIDINE 20 MG TAB PO SCH (08:19)
[2019-06-02] MEDS: GABAPENTIN 300 MG CAP PO SCH (08:20)
[2019-06-02] MEDS: METOPROLOL SUCC 25MG EXT REL TAB PO SCH (08:20)
[2019-06-02] MEDS: predniSONE 20 MG TAB PO SCH (08:20)
[2019-06-02] MEDS: FUROSEMIDE 20 MG TAB PO SCH (08:20)
[2019-06-02] MEDS: CYANOCOBALAMIN 500 MCG TABLET (VITAMIN B-12) PO SCH (08:21)
[2019-06-02] MEDS: FLECAINIDE ACETATE 100 MG TABLET PO SCH (08:21)
[2019-06-02] MEDS: OXYMETAZOLINE 0.05% 30 ML BTL SCH (08:22)
[2019-06-02] MEDS ORDERED: AMLODIPINE BESYLATE 5 MG TAB PO SCH (09:00)
[2019-06-02] MEDS: INSULIN ASPART 100 UNITS/ML 3 ML PEN SC SCH ×3 (09:04→18:18)
[2019-06-02] MEDS: DOXYCYCLINE HYCLATE 100 MG in DEXTROSE 5% 100 ML IV SCH (10:13)
[2019-06-02] MEDS: RIVAROXABAN 20 MG TAB PO SCH (16:03)
[2019-06-02] MEDS: DIGOXIN 0.25 MG TAB PO SCH (16:03)
--- NOTE | 2019-06-02 16:35 | Discharge Summary ---
Date of Service June 02, 2019 Admission HPI Per Admitting Provider 73 y/o F Hx HTN, HLD, hypothyroidism, obese-LISSETH, diastolic CHF, asthma. The pt was recently treated for an asthma exacerbation and PNM. She failed to improve with a course of Zithromax and continues to have a productive cough, wheezing and SOB. A CXR in the ER demonstrated a RML infiltrate which was present on imaging 04/10. The pt has not had fevers and initial labs are unremarkable. PMH: 1) Diastolic CHF 2) Morbid obesity 3) LISSETH - 02 only HS 4) Paroxysmal AF - Xarelto 5) Hypothyroidism 6) Borderline DM 7) HTN 8) HLD 9) RBBB Surgical: 1) Cholecystectomy 2) Hysterectomy 3) TKA Social: Never smoked, does not drink Family: PE, skin CA Discharge Exam Constitutional WD/WN, vitals as above (Sitting in chair at bedside) + obese Eyes PERRL, conjunctivae normal, anicteric sclerae + anicteric sclerae ENMT external ear and nose normal, oropharynx normal (Improved +TTP over frontal sinuses) Neck trachea midline, no thyromegaly Respiratory normal respiratory effort, lungs clear to auscultation normal respiratory effort; no labored breathing Auscultation: + wheezes (occasional, scattered bilat) Cardiovascular RRR, no murmur, no edema Chest (Breasts) Chest: normal inspection of chest Gastrointestinal (Abdomen) normal bowel sounds, soft, nontender, no hepatosplenomegaly Musculoskeletal Extremities: extremities normal to inspection; no cyanosis and no clubbing Skin no rashes, warm and dry Neurologic moves all extremities and awake; no focal motor deficits Psychiatric A+Ox3, euthymic affect Lymphatic no lymphedema Discharge Data Allergies Allergy/AdvReac Type Severity Reaction Status Date / Time pecan nut Allergy Unknown . Verified 05/15/19 13:25 Sulfa (Sulfonamide AdvReac Mild YEAST Verified 05/15/19 13:25 Antibiotics) INFECTION Consultations 05/29/19 22:07 ED Decision to Admit Stat Ordered Studies 05/30/19 18:58 CT head/brain wo con Urgent 05/30/19 19:15 CT sinus wo con Urgent Hospital Course (1) Asthma exacerbation: Asthma exacerbation +/- PNM. Unclear if the RLL infiltrate is residual, representing gradual resolution, or if this is recurrent. The pt will be treated for PNM in addition to an asthma exacerbation therefore. Placed on Cef/Doxy, nebs, steroids, 02. Seems to be improved from a respiratory standpoint. Not requiring O2 Overall much improved -continue ceftriaxone, doxy and will likely convert to oral antibiotics tomorrow -continue steroidstransitioned to oral prednisone-will complete a 5-day course of 40 mg daily -continue nebs scheduled -continue O2 as needed, although she does not seem to be needing this much anymorewill want to see how she does with exertion prior to discharge (2) Headache: Continues to have headache although is overall improved with the addition of Afrin and with continued steroid and antibiotics for sinusitis seen on CT She relates it to her blood pressure, but given that she shows no confusion, visual problems, neurologic findings, I do not believe she is suffering from a hypertensive urgency. More than likely she has a headache and the pain from the headache as well as stress is raising her blood pressure, rather than the other way around. She has some sinus findings on CT that could definitely explain it, and certainly it would be quite likely to also have a tension headache from her overall illness and hospital stay. Continue to follow closely, continue as needed medications. -Continue Tylenol as needed, tramadol as needed -Continue prednisone, antibiotics -Continue improved blood pressure control (3) Hyperlipemia: -continue Atorvastatin (4) Type 2 diabetes mellitus: HgbA1C 6.8% in Sugars have been acceptable, follow with reduction in steroids (5) Hypothyroid: TSH 2.6 in - cont Synthroid (6) Atrial fibrillation: Continues in regular rhythm on examination PAF - Sinus on admission - cont Flecainide, Dig, and Xarelto Digoxin level 1.6 here which is within the normal range but is higher level of normal With significant bradycardia in the 40s and 50s and chronic dizziness and sometimes palpitations with slow heart rate at home -We will reduce metoprolol down to 75 mg once daily for bradycardia and see if this improves her chronic dizziness -Consider reduction in digoxin as well (7) CHF (congestive heart failure): Chronic diastolic CHF - no current evidence of volume overload -continue home medications and follow (8) COPD with acute exacerbation: See above as it relates to her asthma and pneumonia (9) Hypertension: Blood pressures remain quite elevated in the 170 systolic Some could be from the steroid use, also could be from pain as noted above -Begin amlodipine 5 mg daily -Reducing Toprol-XL to 75 mg daily as above for bradycardia and symptoms of diz ziness -Continue to monitor BP and adjust medication as needed (10) DVT prophylaxis: Xarelto (11) Discharge planning issues: Given that she talks a lot about falls, and does appear very weak and frail, as well as somewhat anxiousPT/OT eval and treat. -Continued stay for blood pressure and headache control Discharge Plan Discharge Items Patient Disposition: Home - Home Health Services Reason For Visit: PNM,ASTHMA EXACERBATION Discharge Diagnosis: Pneumonia, acute sinusitis, hypertension, asthma exacerbation Condition on Discharge: Good Activity: Resume your previous activity Bathing: No limitations Non-emergency contact: Primary Care Provider Call non-emergency contact if: you have any medication questions and your sy mptoms worsen Follow-up/Referrals: Harsha Venegas III, MD [Primary Care Provider] - (Please call for a hospital follow-up appointment within 1 week) Diet: Carb Consistent or DM2 and Heart Healthy Addtl Attending Provider Instructions: Please finish out the course of antibiotics with doxycycline and cefdinir for 4 more days. Please finish out 3 more days of prednisone once daily. Your metoprolol dose was lowered to 75 mg once daily as your heart rate was too low on the previous dose. Your blood pressure was quite high this admission and you were started on a new blood pressure pill called amlodipine to be taken once daily. Please keep track of your blood pressures daily and keep a log book for your primary care physician at your follow-up visit. Pending Studies at Discharge: Yes (Final blood culture result-no growth to date at time of discharge) Stand-Alone Forms: [facility] Medications and DC Order Prescriptions: New prednisone 20 mg Tablet 40 mg PO DAILY 3 Days Qty: 6 RF: 0 metoprolol succinate 25 mg Tablet Extended Release 24 Hr 75 mg PO DAILY Qty: 90 RF: 0 doxycycline hyclate 100 mg tablet 100 mg PO BID Qty: 8 RF: 0 cefdinir 300 mg capsule 300 mg PO BID Qty: 8 RF: 0 amlodipine [Norvasc] 10 mg tablet 10 mg PO DAILY Qty: 30 RF: 0 Continued rivaroxaban 20 mg tablet 20 mg PO QPM Qty: 90 RF: 3 montelukast 10 mg tablet 10 mg PO HS Qty: 90 RF: 2 levalbuterol HCl 1.25 mg/3 mL solution for nebulization 1.25 mg inhalation Q4H Qty: 300 RF: 5 pantoprazole 40 mg tablet,delayed release (DR/EC) 40 mg PO DAILY Qty: 90 RF: 3 famotidine 20 mg tablet 20 mg PO DAILY Qty: 90 RF: 3 acetaminophen 325 mg tablet 650 mg PO Q4H PRN (Reason: mild pain) RF: 0 calcium carbonate-vitamin D3 500 mg(1,250mg) -200 unit tablet 1 tab PO DAILY RF: 0 cyanocobalamin (vitamin B-12) 500 mcg tablet,disintegrating 500 mcg SL DAILY Qty: 30 RF: 0 cyclosporine 0.05 % dropperette 1 drops ophthalmic (eye) BID RF: 0 digoxin 250 mcg tablet 250 mcg PO DAILY Qty: 90 RF: 0 docusate sodium 100 mg capsule 100 mg PO DAILY PRN (Reason: Constipation) RF: 0 flecainide 100 mg tablet 100 mg PO Q12H Qty: 180 RF: 0 furosemide 40 mg tablet 20 mg PO DAILY Qty: 90 RF: 0 gabapentin 300 mg capsule 300 mg PO DAILY Qty: 90 RF: 0 latanoprost 0.005 % drops 1 drops OP HS RF: 0 levothyroxine 75 mcg tablet 75 mcg PO DAILY Qty: 90 RF: 0 sennosides-docusate sodium 8.6-50 mg tablet 1 tab PO DAILY Qty: 90 RF: 0 Symbicort 160-4.5 mcg/actuation HFA aerosol inhaler 2 puffs inhalation BID Qty: 1 RF: 0 levalbuterol tartrate [Xopenex HFA] 45 mcg/actuation Hfa Aerosol Inhaler 2 inh INHALATION Q4H RF: 0 atorvastatin 20 mg tablet 20 mg PO QPM RF: 0 Discontinued metoprolol succinate 100 mg tablet extended release 24 hr 100 mg PO DAILY Qty: 90 RF: 3 Discharge Orders: Discharge Order (Routine); Ordered 06/02/19 Ordered By: Ananya Shell/Other Patient Handouts: Diabetes Healthy Meals, Diabetes Meal Planning, A1C Admission Data Admit Date/Time: 05/29/19 22:35 Attending Provider: Ananya Fair Admit Provider: Carmine Rhoades Primary Care Provider: Harsha Venegas III Other Providers: Ananya Fair ; Carmine Rhoades ; [facility]
== END 2019-06-02 18:35 | disposition home health service (06) ==
LOC: ED 19:21 → SUATTDRO 22:35 → INTOOBSV 22:35 → 1E 22:35 → 2S 05-30 12:31 → 4W 05-31 18:55

== ENCOUNTER 2022-01-08 17:23 | Observation (INO) ==
--- NOTE | 2022-01-08 18:44 | XRay Report ---
XR chest 1V portable CLINICAL HISTORY: Dyspnea TECHNIQUE: Single frontal radiograph of the chest was obtained. Comparison: Comparison is made to chest radiograph 11/23/2020 FINDINGS: Exam is limited by underpenetration. Cardiomegaly is noted. Airspace opacity is seen in the right low er lobe. Mild pulmonary edema is seen. No evidence of pleural effusion or pneumothorax. IMPRESSION: 1. Airspace opacity in the right lower lobe may represent atelectasis, pneumonia, and/or aspiration. 2. Mild pulmonary edema with cardiomegaly. ACT 112: Negative or not required by law. Electronically signed by: Srini Contreras M.D. 01/08/2022 6:43 PM
[2022-01-08] MEDS ORDERED: methylPREDNISolone 125 MG/2 ML VIAL IV STA (18:47)
[2022-01-08] MEDS ORDERED: ALBUT/IPRATROP 3MG/0.5MG NEB 3 ML VIAL NEB STA (18:47)
[2022-01-08] MEDS ORDERED: ACETAMINOPHEN 500 MG TAB PO STA (18:47)
[2022-01-08] MEDS ORDERED: DOXYCYCLINE HYCLATE 100 MG in DEXTROSE 5% 100 ML IV STA (19:19)
[2022-01-08] MEDS ORDERED: cefTRIAXone SODIUM 2,000 MG/70 ML BAG IV STA (19:19)
[2022-01-08 19:22] LABS: Basophils # (auto) 0.05 K/uL (0-0.2); Basophils % (auto) 0.4 %; Eosinophils % (auto) 0.8 %; Hematocrit (blood only) 35.9 % (34.1-44.9); Hemoglobin 11.6 g/dl (12.0-16.0); Immature Granulocytes # (auto) 0.06 K/uL (0.00-0.02); Immature Granulocytes % (auto) 0.5 %; Lymphocytes # (auto) 1.31 K/uL (1.2-3.4); Lymphocytes % (auto) 9.9 %; Mean Corpuscular Hemoglobin 28.3 pg (25.0-34.0); Mean Corpuscular Hgb Conc 32.3 g/dL (32.0-36.0); Mean Corpuscular Volume 87.6 fL (80.0-100.0); Mean Platelet Volume 9.7 fL (9.4-12.3); Monocytes # (auto) 0.97 K/uL (0.24-0.82); Monocytes % (auto) 7.3 %; Neutrophils # (auto) 10.78 K/uL (1.4-6.5); Neutrophils % (auto) 81.1 %; Platelet Count 230 K/uL (130-400); RDW Coefficient of Variation 14.2 % (11.5-14.5); White Blood Count 13.27 K/ul (4.8-10.8)
--- NOTE | 2022-01-08 19:27 | Emergency Department Note ---
Impression & Plan SOB (shortness of breath), Right lower lobe pneumonia, Fever, Hypoxia ED Provider Note INFORMANT: Patient ED PROVIDER(S): Carter Acosta MD CHIEF COMPLAINT: Shortness of breath PLAN: Disposition: Admitted Condition: Good Outpatient prescription management: none Referral: None MEDICAL DECISION MAKING: Patient presented to emergency department with upper respiratory symptoms. She was hypoxic. She did well with supplemental oxygen. She was wheezing and was given a DuoNeb and Solu-Medrol. Chest x-ray was performed and revealed a right lower lobe pneumonia. She does have a 13,000 white count. Her troponin and BNP are borderline. ECG did not reveal any acute ischemic change. Patient was treated with IV Rocephin and doxycycline. COVID testing sent. Patient was also treated with Tylenol. Further management will be necessary in the hospital. She did respond well to supplemental oxygen. Consultation was made with Dr. Rhodes of the hospitalist service. Patient was evaluated in the ER for further management. Triage Nursing notes reviewed and agree them. Vital Signs: reviewed and remarkable for hypoxia Differential diagnosis: Reactive airway disease, pneumonia, pneumothorax, COPD, CHF, infections, cardiac ischemia, pulmonary embolism, musculoskeletal, gastrointestinal, as well as other pathologies. Diagnostics interpreted by me: ECG: Twelve-lead ECG was normal sinus rhythm at 70 bpm. Bundle branch block present. No ST elevation. No PVCs. Cardiac Monitoring: Cardiac monitoring ordered by me: The patient was placed on continuous cardiac monitoring and observed. It revealed a normal sinus rhythm at 69 beats per minute without ectopy or evidence of dysrhythmia. Imaging studies: Chest x-ray consistent with right lower lobe pneumonia. HPI: The patient is a 76year old female who presents to the Emergency Room with complaints of shortness of breath. This started 2 to 3 days ago and is worsening. The patient also notes the following associated symptoms, cough, fatigue, fever. The patient has tried to use her nebulizer for relieving factors. Current pain is rated as 0/10. Patient notes family members were sick with URI symptoms. No known COVID contact. Patient does have a history of COPD. Patient is anticoagulated. Pt denies LOC, headache, fevers, chills, diaphoresis, visual changes, neck pain, chest pain, breathing difficulties, nausea, vomiting, abdominal pain, back pain, melena, hematochezia, urinary symptoms, numbness, weakness, lymphadenopathy, rash, or other complaints. ROS: See above HPI for pertinent positives & negatives. A total of 10 systems reviewed and were otherwise negative. PAST MEDICAL HISTORY:See Below , hypertension, CHF PAST SURGICAL HISTORY:See Below, right knee replacement FAMILY HISTORY:See Below SOCIAL HISTORY:See Below, non-smoker HOME MEDICATIONS:See Below ALLERGIES:See Below VITALS:See Below PHYSICAL EXAMINATION: GENERAL: Awake, alert, mildly ill-appearing, in no distress HENT: Normocephalic, atraumatic. Oropharynx unremarkable. EYES: Normal conjunctiva. Sclera non-icteric. NECK: Inspection normal. Non-tender. Supple. No nuchal rigidity. FROM. No mass es. RESPIRATORY: Diminished in the right base with scattered bilateral wheezes. No rales. Increased respiratory effort. CARDIAC: Normal rate. Normal rhythm. No murmurs. No rubs. Extremities warm and well perfused. Pulses equal. No JVD. GI: Soft, non-distended. No tenderness to palpation. No rebound or guarding. No masses. RECTAL: Deferred. MUSCULOSKELETAL: Atraumatic. Chest examination reveals no tenderness. The back is symmetrical on inspection without obvious abnormality. There is no CVA t enderness to palpation. No joint edema. LOWER EXTREMITIES: Chronic venous discoloration present. The right lower extremity is larger than the left. There is +1 edema bilaterally. Patient states the right lower extremity has been larger than her left for years since her knee surgery. NEURO: Normal sensorium. No sensory or motor deficits noted. SKIN: No rash or jaundice noted. Carter Acosta MD Past Med/Surg History Medical History Afib on xarelto; follows with Dr. Zimmer Anticoagulant long-term use xarelto daily Asthma inhaler daily/prn, nebulizer prn CHF (congestive heart failure) COPD (chronic obstructive pulmonary disease) GERD (gastroesophageal reflux disease) Glaucoma History of basal cell carcinoma History of gout History of intestinal obstruction HLD (hyperlipidemia) Hoarseness of voice Hypertension Hypothyroidism Left knee DJD Morbid obesity with BMI of 45.0-49.9, adult Nocturnal hypoxemia On home oxygen therapy 2 lpm qHS and prn Osteoarthritis Osteoporosis Peripheral neuropathy Prediabetes PVD (peripheral vascular disease) Urinary incontinence Surgical History History of basal cell carcinoma (BCC) excision History of decompression of median nerve at carpal tunnel (neuroplasty) History of hernia repair History of intestinal surgery History of laparoscopic cholecystectomy History of tooth extraction History of total abdominal hysterectomy History of total knee arthroplasty Rt S/P thyroid biopsy Status post endovenous radiofrequency ablation of saphenous vein History of endovenous ablation of incompetent vein radiofrequency. Type of vein not specified in CCD Status post sclerotherapy of varicose veins (~11/06/20) @ [facility] Family History Father Skin cancer Pulmonary embolism Father Gout Other No family history of adverse response to anesthesia Denies family history of Ovarian cancer Prostate cancer Myocardial infarction Breast cancer Lung cancer Colorectal cancer Social History Smoking Status: Never smoker Second Hand Exposure: No; Hx Alcohol Use: No Hx Substance Use: No Preferred Language: Bur[place]ian Communication Ability: Effective Visual Impairment: Limited Hearing Ability: Normal Automobile Glass Technician Required: No Beliefs That Will Affect Care: None marital status: Current Living Situation: Alone current occupational status: retired 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 ONE CHILD IN REHAB, AND ANOTHER LIVES ABOUT AN HOUR AND 1/2 AWAY FROM PT. Feels Safe at Home: Yes Safety Concerns Comment: Talking about getting LifeAlert due to incidents late/middle night/shower Childhood Exposure to Second-Hand Smoke: No caffeine: Yes during the past year weight has: remained stable Dental Care, Regularly: Yes Physical Activity Frequency: Daily Seatbelt Use: always Sunscreen Use: Yes Assistive Devices: Cane and Glasses Allergies Allergies Allergy/AdvReac Type Severity Reaction Status Date / Time pecan nut Allergy Intermediate TONGUE Verified 01/08/22 20:17 SWELLS Sulfa (Sulfonamide AdvReac Mild YEAST Verified 01/08/22 20:17 Antibiotics) INFECTION Home Meds Home Medications Medication Instructions Recorded Confirmed calcium carbonate 500 mg-vitamin 1 tab PO PM 01/14/19 01/08/22 D3 5 mcg (200 unit) tablet cyclosporine 0.05 % eye drops in a 1 drops ophthalmic (eye) BID 01/14/19 0 01/08/22 dropperette (Restasis) docusate sodium 100 mg capsule 100 mg PO QAM PRN Constipation 01/14/19 01/08/22 latanoprost 0.005 % eye drops 1 drops ophthalmic (eye) HS 01/14/19 01/08/22 levalbuterol HCl 1.25 mg/3 mL 1.25 mg inhalation Q4H PRN 01/08/22 01/08/22 solution for nebulization Shortness Of Breath Or Wheezing Previous Rx's Medication Instructions Recorded nebulizer accessories #1 ea 03/26/20 nebulizers #1 ea 09/09/20 compression socks, x-large #2 ea 11/07/20 miscellaneous medical supply #1 ea 11/07/20 nebulizer accessories #1 ea 11/07/20 atorvastatin 20 mg tablet 20 mg PO QPM #90 tabs 04/10/21 gabapentin 300 mg capsule 300 mg PO BID #270 caps 04/10/21 pantoprazole 40 mg tablet,delayed 40 mg PO QAM #90 tabs 05/22/21 release flecainide 100 mg tablet 100 mg PO Q12H #180 tabs 06/10/21 montelukast 10 mg tablet 10 mg PO HS #90 tabs 07/24/21 amoxicillin 500 mg capsule See Rx Instructions .Route 07/28/21 .COMPLEX #4 caps cimetidine 400 mg tablet 400 mg PO HS #90 tabs 08/19/21 furosemide 20 mg tablet 20 mg PO QAM #90 tabs 09/02/21 levalbuterol tartrate 45 2 inh inhalation Q4H PRN sob #15 09/03/21 mcg/actuation aerosol inhaler grams (Xopenex HFA) nystatin 100,000 unit/gram topical 1 applic topical TID PRN Skin 09/26/21 cream Irritation #30 grams levothyroxine 75 mcg tablet 75 mcg PO QAM #90 tabs 10/29/21 Symbicort 160 mcg-4.5 2 puff inhalation BID #3 Inhalers 12/09/21 mcg/actuation HFA aerosol inhaler (budesonide-formoterol) rivaroxaban 20 mg tablet 20 mg PO QPM #90 tabs 12/11/21 amlodipine 5 mg tablet 5 mg PO QAM #90 tabs 12/12/21 metoprolol succinate 100 mg 100 mg PO QAM #90 ea 12/24/21 capsule sprinkle, ext. release 24 hr ipratropium bromide 0.02 % 2.5 ml inhalation Q6H PRN 12/29/21 solution for inhalation shortness of breath or wheezing #150 mL Results & Data (ED) Vital Signs Vital Signs - 24 hr 01/08/22 17:24 01/08/22 17:24 01/08/22 18:30 Temperature 38.2 C H Temperature Source Oral Pulse Rate 68 Pulse Rate [Apical] 69 Respiratory Rate 24 20 Respiratory Effort / Characteristics Non-Labored Spontaneous Respiratory Depth Normal Respiratory Pattern Tachypnea Tachypnea Blood Pressure 165/69 H Blood Pressure [Right Arm] 172/76 H Blood Pressure Mean 101 Blood Pressure Mean [Right Arm] 108 Blood Pressure Position [Right Arm] Lying Pulse Oximetry 85 L 95 Oxygen Delivery Method Room Air Nasal Cannula Oxygen Flow Rate 2 Sepsis Recent Fever Within 48 Hours Yes Sepsis New/Unexplained Change in Mental Status No Sepsis Action Taken by Nursing No Action Required Oxygen Flow Rate - Titration Pulse Oximetry Post Tiitration 01/08/22 19:27 Temperature Temperature Source Pulse Rate Pulse Rate [Apical] Respiratory Rate Respiratory Effort / Characteristics Respiratory Depth Respiratory Pattern Blood Pressure Blood Pressure [Right Arm] Blood Pressure Mean Blood Pressure Mean [Right Arm] Blood Pressure Position [Right Arm] Pulse Oximetry 89 L Oxygen Delivery Method Nasal Cannula Oxygen Flow Rate 0 Sepsis Recent Fever Within 48 Hours Sepsis New/Unexplained Change in Mental Status Sepsis Action Taken by Nursing Oxygen Flow Rate - Titration 3 Pulse Oximetry Post Tiitration 94 Laboratory Data Result diagrams: 01/08/22 18:56 01/08/22 18:56 Lab Results 01/08/22 01/08/22 01/08/22 Range/Units 18:56 18:56 18:56 WBC 13.27 H (4.8-10.8) K/ul RBC 4.10 (3.93-5.22) M/uL Hgb 11.6 L (12.0-16.0) g/dl Hct 35.9 (34.1-44.9) % MCV 87.6 (80.0-100.0) fL MCH 28.3 (25.0-34.0) pg MCHC 32.3 (32.0-36.0) g/dL RDW Std Deviation 46.0 (36.4-46.3) fL RDW Coeff of Sonal 14.2 (11.5-14.5) % Plt Count 230 (130-400) K/uL MPV 9.7 (9.4-12.3) fL Immature Gran % (Auto) 0.5 % Neut % (Auto) 81.1 % Lymph % (Auto) 9.9 % Sibley % (Auto) 7.3 % Eos % (Auto) 0.8 % Baso % (Auto) 0.4 % Neut # (Auto) 10.78 H (1.4-6.5) K/uL Lymph # (Auto) 1.31 (1.2-3.4) K/uL Sibley # (Auto) 0.97 H (0.24-0.82) K/uL Eos # (Auto) 0.10 (0-0.50) K/uL Baso # (Auto) 0.05 (0-0.2) K/uL Immature Gran # (Auto) 0.06 H (0.00-0.02) K/uL Sodium 134 L (136-145) mmol/L Potassium 4.2 (3.5-5.1) mmol/L Chloride 96 L (98-107) mmol/L Carbon Dioxide 31 (21-32) mmol/L Anion Gap 7 (3-11) BUN 13 (6-23) mg/dl Creatinine 0.83 (0.6-1.2) mg/dl Est Cr Clr Drug Dosing 75.8 ml/min Est GFR ( Amer) 80.5 ml/min Est GFR (Non-Af Amer) 69.5 ml/min BUN/Creatinine Ratio 15.7 (10-20) Glucose 113 H (70-99(Fasting)) mg/dl Lactate (0.4-2.0) mmol/L Calcium 9.3 (8.5-10.1) mg/dl Magnesium 2.1 (1.7-2.4) mg/dl Total Bilirubin 0.8 (0.2-1.0) mg/dl AST 16 (13-39) U/L ALT 8 (7-52) U/L Alkaline Phosphatase 103 (34-104) U/L Troponin I High Sens 14.2 H (0-14) pg/ml B-Natriuretic Peptide 328 H (0-100) pg/ml Total Protein 7.5 (6.0-8.3) gm/dl Albumin 3.6 (3.4-5.0) gm/dl Globulin 3.9 (2.5-4.0) gm/dl Albumin/Globulin Ratio 0.9 (0.9-2) 01/08/22 Range/Units 18:56 WBC (4.8-10.8) K/ul RBC (3.93-5.22) M/uL Hgb (12.0-16.0) g/dl Hct (34.1-44.9) % MCV (80.0-100.0) fL MCH (25.0-34.0) pg MCHC (32.0-36.0) g/dL RDW Std Deviation (36.4-46.3) fL RDW Coeff of Sonal (11.5-14.5) % Plt Count (130-400) K/uL MPV (9.4-12.3) fL Immature Gran % (Auto) % Neut % (Auto) % Lymph % (Auto) % Sibley % (Auto) % Eos % (Auto) % Baso % (Auto) % Neut # (Auto) (1.4-6.5) K/uL Lymph # (Auto) (1.2-3.4) K/uL Sibley # (Auto) (0.24-0.82) K/uL Eos # (Auto) (0-0.50) K/uL Baso # (Auto) (0-0.2) K/uL Immature Gran # (Auto) (0.00-0.02) K/uL Sodium (136-145) mmol/L Potassium (3.5-5.1) mmol/L Chloride (98-107) mmol/L Carbon Dioxide (21-32) mmol/L Anion Gap (3-11) BUN (6-23) mg/dl Creatinine (0.6-1.2) mg/dl Est Cr Clr Drug Dosing ml/min Est GFR ( Amer) ml/min Est GFR (Non-Af Amer) ml/min BUN/Creatinine Ratio (10-20) Glucose (70-99(Fasting)) mg/dl Lactate 0.9 (0.4-2.0) mmol/L Calcium (8.5-10.1) mg/dl Magnesium (1.7-2.4) mg/dl Total Bilirubin (0.2-1.0) mg/dl AST (13-39) U/L ALT (7-52) U/L Alkaline Phosphatase (34-104) U/L Troponin I High Sens (0-14) pg/ml B-Natriuretic Peptide (0-100) pg/ml Total Protein (6.0-8.3) gm/dl Albumin (3.4-5.0) gm/dl Globulin (2.5-4.0) gm/dl Albumin/Globulin Ratio (0.9-2) Administered Medications Discontinued Medications Acetaminophen (Acetaminophen 500 Mg Tab) 1,000 mg PO NOW STA Stop: 01/08/22 18:48 Last Admin: 01/08/22 18:58 Dose: 1,000 mg Documented By: MARYELLEN Albuterol (Albut/Ipratrop 3mg/0.5mg Neb 3 Ml Vial) 3 ml NEB NOW STA; Protocol Stop: 01/08/22 18:48 Last Admin: 01/08/22 18:59 Dose: 3 ml Documented By: MARYELLEN Ceftriaxone Sodium (Rocephin) 2,000 mg in 70 mls @ 140 mls/hr IV NOW STA Stop: 01/08/22 19:48 Last Admin: 01/08/22 20:27 Dose: 140 mls/hr Documented By: AMOS Methylprednisolone (Methylprednisolone 125 Mg/2 Ml Vial) 125 mg IV NOW STA Stop: 01/08/22 18:48 Last Admin: 01/08/22 18:59 Dose: 125 mg Documented By: MARYELLEN Imaging Data Radiologist's Impression: Chest X-Ray 01/08/22 18:17 XR chest 1V portable CLINICAL HISTORY: Dyspnea TECHNIQUE: Single frontal radiograph of the chest was obtained. Comparison: Comparison is made to chest radiograph 11/23/2020 FINDINGS: Exam is limited by underpenetration. Cardiomegaly is noted. Airspace opacity is seen in the right lower lobe. Mild pulmonary edema is seen. No evidence of pleural effusion or pneumothorax. IMPRESSION: 1. Airspace opacity in the right lower lobe may represent atelectasis, pneumonia, and/or aspiration. 2. Mild pulmonary edema with cardiomegaly. ACT 112: Negative or not required by law. Electronically signed by: Srini Contreras M.D. 01/08/2022 6:43 PM Discharge Plan Visit Data Chief Complaint: Shortness of Breath/Dyspnea Stated Complaint: SOB ED Provider: Carter Acosta Discharge Problem: SOB (shortness of breath), Right lower lobe pneumonia, Fever, Hypoxia Forms Stand Alone Forms: [facility] Prescriptions Prescriptions: No Action (DME) nebulizer accessories Misc See Rx Instructions .ROUTE .MEDSUPPLY Qty: 1 0RF Rx Instructions: NEBULIZER TUBING. (DME) nebulizers Misc See Rx Instructions .ROUTE .MEDSUPPLY Qty: 1 0RF Rx Instructions: Nebulizer and nebulizer set up. DX: J44.9 (DME) compression socks, x-large Misc See Rx Instructions .ROUTE .MEDSUPPLY Qty: 2 0RF Rx Instructions: SIZE X-LARGE WITHOUT TOES R60.9 I87.2 (DME) miscellaneous medical supply Misc See Rx Instructions .ROUTE .MEDSUPPLY Qty: 1 0RF Rx Instructions: OXYGEN TUBING J45.909 J98.4 G47.34 (DME) nebulizer accessories Misc See Rx Instructions .ROUTE .MEDSUPPLY Qty: 1 0RF Rx Instructions: NEBULIZER TUBING R06.00 J98.4 J45.909 gabapentin 300 mg capsule 300 mg PO BID Qty: 270 3RF atorvastatin 20 mg tablet 20 mg PO QPM Qty: 90 3RF pantoprazole 40 mg tablet,delayed release (DR/EC) 40 mg PO QAM Qty: 90 3RF flecainide 100 mg tablet 100 mg PO Q12H Qty: 180 3RF montelukast 10 mg tablet 10 mg PO HS Qty: 90 3RF amoxicillin 500 mg capsule See Rx Instructions .ROUTE .COMPLEX Qty: 4 4RF Dose Instruction: TAKE ALL 4 CAPS ONE HOUR PRIOR TO DENTAL PROCEDURE Rx Instructions: TAKE ALL 4 CAPS ONE HOUR PRIOR TO DENTAL PROCEDURE cimetidine 400 mg tablet 400 mg PO HS Qty: 90 3RF furosemide 20 mg tablet 20 mg PO QAM Qty: 90 3RF Rx Instructions: TAKE 1 TABLET BY MOUTH EVERY MORNING levalbuterol tartrate [Xopenex HFA] 45 mcg/actuation HFA aerosol inhaler 2 inh INHALATION Q4H PRN (Reason: sob) Qty: 15 3RF nystatin 100,000 unit/gram cream 1 applic TOP TID PRN (Reason: Skin Irritation) Qty: 30 0RF Rx Instructions: alternate application with powder levothyroxine 75 mcg tablet 75 mcg PO QAM Qty: 90 3RF budesonide-formoterol [Symbicort] 160-4.5 mcg/actuation HFA aerosol inhaler 2 puff inhalation BID Qty: 3 1RF Rx Instructions: Has to be Brand Necessary Symbicort rivaroxaban 20 mg tablet 20 mg PO QPM Qty: 90 1RF amlodipine 5 mg tablet 5 mg PO QAM Qty: 90 3RF metoprolol succinate 100 mg capsule,sprinkle,ER 24hr 100 mg PO QAM Qty: 90 3RF ipratropium bromide 0.02 % solution 2.5 ml INH Q6H PRN (Reason: shortness of breath or wheezing) Qty: 150 3RF calcium carbonate-vitamin D3 500 mg(1,250mg) -200 unit tablet 1 tab PO PM cyclosporine [Restasis] 0.05 % dropperette 1 drops ophthalmic (eye) BID docusate sodium 100 mg capsule 100 mg PO QAM PRN (Reason: Constipation) latanoprost 0.005 % drops 1 drops OP HS levalbuterol HCl 1.25 mg/3 mL solution for nebulization 1.25 mg inhalation Q4H PRN (Reason: Shortness Of Breath Or Wheezing) Referrals Referrals: Jese Calle MD [Primary Care Provider] -
[2022-01-08 19:41] LABS: Albumin Globulin Ratio 0.9 (0.9-2); Albumin Level 3.6 gm/dl (3.4-5.0); BUN Creatinine Ratio 15.7 (10-20); Bilirubin,Total 0.8 mg/dl (0.2-1.0); Calcium 9.3 mg/dl (8.5-10.1); Creatinine Clr Calc Pharmacy 75.8 ml/min; Est GFR (African American) 80.5 ml/min; Est GFR (Non-African American) 69.5 ml/min; Globulin 3.9 gm/dl (2.5-4.0); Magnesium 2.1 mg/dl (1.7-2.4); Potassium 4.2 mmol/L (3.5-5.1); Total Protein 7.5 gm/dl (6.0-8.3)
[2022-01-08 19:45] LABS: Troponin I High Sensitivity 14.2 pg/ml (0-14)
--- NOTE | 2022-01-08 20:38 | History & Physical Report ---
Date of Service January 08, 2022 Assessment & Plan (1) Right lower lobe pneumonia: Plan: 76yo female with history of COPD, restrictive lung disease, HTN, HLP, CHF presenting with 3-4 days of productive cough, SOB as well as fever/chills/malaise. Patient with sick contacts - family members ill. No known Covid-19 exposure. Patient meets sepsis criteria with fever and elevated WBC of 13.27 with neutrophil predominance and elevated bands. Hypoxic on arrival at 85% on room air which improved with 3L supplemental O2 by NC. CXR with airspace opacity in the RLL. Patient uses supplemental O2 at home 2L at night and with naps. Patient most likely with CAP, no recent hospitalizations. CURB 65 = 1 (low risk), Class III (low risk) by PSI/Port -Admit to medical -Follow blood cultures sent from ER -Ceftriaxone 2gm IV daily -Doxycycline 1gm IV BID -Mucinex, Flutter valve, incentive spirometry -Tylenol PRN -Supplemental O2 as needed (2) COPD (chronic obstructive pulmonary disease): Plan: Patient with restrictive lung disease secondary to morbid obesity as well as obstructive lung disease. She has some diffuse end-expiratory wheezing. She received Solumedrol 125mg IV in the ER -DuoNeb q 4 hours scheduled -Albuterol q 2 hours PRN -Mucinex, flutter valve, incentive spirometry -Supplemental O2 as needed -Solumedrol 40mg IV TID -Continue Singulair 10mg po qHS (3) Atrial fibrillation: Plan: Chronic. Rate controlled. Anticoagulated on Rivaroxaban 20mg po qPM -Continue Rivaroxaban -Continue Flecainide -Continue Metoprolol (4) Hypertension: Plan: Blood pressure mildly elevated -Continue Amlodipine 5mg po daily -Continue metoprolol -Continue to monitor (5) Hypothyroid: Plan: Chronic. Stable. TSH within normal limits at 1.7 in August 2021 -Continue Synthroid (6) Type 2 diabetes mellitus: Plan: Diet controlled. HgbA1C on 09/08/21 = 6 -Monitor (7) Hyperlipemia: Plan: Chronic. Stable -Continue Atorvastatin (8) CHF (congestive heart failure): Plan: Patient denies orthopnea, weight gain. Has had some mild swelling in her right foot. BNP elevated at 328 (may be falsely low due to obesity). Review of prior weight - patient 126.7 kg today, slightly higher than previous. -Will give Lasix 20mg IV x 1 dose -Continue home PO dosing -Monitor I/Os, daily weights (9) GERD (gastroesophageal reflux disease): Plan: Chronic. Patient reports occasional hoarseness as well as occasional esophageal dysphagia. No odynophagia. No oral lesions. -Continue Protonix -Consider referral for outpatient EGD History of Present Illness Chief Complaint: pneumonia Primary Care Provider: Jese Calle MD Genesis Alfonso is a 76yo female with history of atrial fibrillation on anticoagulation, COPD, Obstructive lung disease, GERD, HLP, Gout, HTN presenting with illness for the last 3-4 days. Patient reports persistent shortness of breath as well as cough productive for yellow/green and occasionally blood tinged sputum. She reports chest tightness and discomfort with deep breaths as well as wheezing. She has been febrile at home with chills, malaise and poor oral intake. Also with headache. She denies chest pain, palpitations, abdominal pain, nausea, vomiting, diarrhea or constipation. Denies sore throat, loss of taste or smell. No additional complaints at this time. Upon arrival to the ER patient febrile at 38.2, hypoxic at 85% on room air. CXR obtained in the ER suggestive of RLL process, possible PNA ER Course: Tylenol, Albuterol, Ceftriaxone 2gm, Solumedrol 125mg Doxycycline ordered Allergies Allergy/AdvReac Type Severity Reaction Status Date / Time pecan nut Allergy Intermediate TONGUE Verified 01/08/22 20:17 SWELLS Sulfa (Sulfonamide AdvReac Mild YEAST Verified 01/08/22 20:17 Antibiotics) INFECTION Home Medications Medication Instructions Recorded Confirmed Type calcium carbonate 500 mg-vitamin 1 tab PO PM 01/14/19 01/08/22 History D3 5 mcg (200 unit) tablet cyclosporine 0.05 % eye drops in a 1 drops ophthalmic (eye) BID 01/14/19 01/08/22 History dropperette (Restasis) docusate sodium 100 mg capsule 100 mg PO QAM PRN Constipation 01/14/19 01/08/22 History latanoprost 0.005 % eye drops 1 drops ophthalmic (eye) HS 01/14/19 01/08/22 History nebulizer accessories #1 ea 03/26/20 09/11/21 Rx nebulizers #1 ea 09/09/20 09/11/21 Rx compression socks, x-large #2 ea 11/07/20 09/11/21 Rx miscellaneous medical supply #1 ea 11/07/20 09/11/21 Rx nebulizer accessories #1 ea 11/07/20 09/11/21 Rx atorvastatin 20 mg tablet 20 mg PO QPM #90 tabs 04/10/21 01/08/22 Rx gabapentin 300 mg capsule 300 mg PO BID #270 caps 04/10/21 01/08/22 Rx pantoprazole 40 mg tablet,delayed 40 mg PO QAM #90 tabs 05/22/21 01/08/22 Rx release flecainide 100 mg tablet 100 mg PO Q12H #180 tabs 06/10/21 01/08/22 Rx montelukast 10 mg tablet 10 mg PO HS #90 tabs 07/24/21 01/08/22 Rx amoxicillin 500 mg capsule See Rx Instructions .Route 07/28/21 01/08/22 Rx .COMPLEX #4 caps cimetidine 400 mg tablet 400 mg PO HS #90 tabs 08/19/21 01/08/22 Rx furosemide 20 mg tablet 20 mg PO QAM #90 tabs 09/02/21 01/08/22 Rx levalbuterol tartrate 45 2 inh inhalation Q4H PRN sob #15 09/03/21 01/08/22 Rx mcg/actuation aerosol inhaler grams (Xopenex HFA) nystatin 100,000 unit/gram topical 1 applic topical TID PRN Skin 09/26/21 01/08/22 Rx cream Irritation #30 grams levothyroxine 75 mcg tablet 75 mcg PO QAM #90 tabs 10/29/21 01/08/22 Rx Symbicort 160 mcg-4.5 2 puff inhalation BID #3 Inhalers 12/09/21 01/08/22 Rx mcg/actuation HFA aerosol inhaler (budesonide-formoterol) rivaroxaban 20 mg tablet 20 mg PO QPM #90 tabs 12/11/21 01/08/22 Rx amlodipine 5 mg tablet 5 mg PO QAM #90 tabs 12/12/21 01/08/22 Rx metoprolol succinate 100 mg 100 mg PO QAM #90 ea 12/24/21 01/08/22 Rx capsule sprinkle, ext. release 24 hr ipratropium bromide 0.02 % 2.5 ml inhalation Q6H PRN 12/29/21 01/08/22 Rx solution for inhalation shortness of breath or wheezing #150 mL levalbuterol HCl 1.25 mg/3 mL 1.25 mg inhalation Q4H PRN 01/08/22 01/08/22 History solution for nebulization Shortness Of Breath Or Wheezing Past Med/Surg History Medical History (Updated 01/08/22 @ 21:20 by Marycarmen Rhodes DO) Afib on xarelto; follows with Dr. Zimmer Anticoagulant long-term use xarelto daily Asthma inhaler daily/prn, nebulizer prn CHF (congestive heart failure) COPD (chronic obstructive pulmonary disease) GERD (gastroesophageal reflux disease) Glaucoma History of basal cell carcinoma History of gout History of intestinal obstruction HLD (hyperlipidemia) Hoarseness of voice Hypertension Hypothyroidism Left knee DJD Morbid obesity with BMI of 45.0-49.9, adult Nocturnal hypoxemia On home oxygen therapy 2 lpm qHS and prn Osteoarthritis Osteoporosis Peripheral neuropathy Prediabetes PVD (peripheral vascular disease) Urinary incontinence Surgical History History of basal cell carcinoma (BCC) excision History of decompression of median nerve at carpal tunnel (neuroplasty) History of hernia repair History of intestinal surgery History of laparoscopic cholecystectomy History of tooth extraction History of total abdominal hysterectomy History of total knee arthroplasty Rt S/P thyroid biopsy Status post endovenous radiofrequency ablation of saphenous vein History of endovenous ablation of incompetent vein radiofrequency. Type of vein not specified in CCD Status post sclerotherapy of varicose veins (~11/06/20) @ [facility] Family History Father Skin cancer Pulmonary embolism Father Gout Other No family history of adverse response to anesthesia Denies family history of Ovarian cancer Prostate cancer Myocardial infarction Breast cancer Lung cancer Colorectal cancer Social History Smoking Status: Never smoker Second Hand Exposure: No; Hx Alcohol Use: No Hx Substance Use: No Preferred Language: Hungarian Communication Ability: Effective Visual Impairment: Limited Hearing Ability: Normal Corporate Ethics Officer Required: No Beliefs That Will Affect Care: None marital status: Current Living Situation: Alone current occupational status: retired 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 ONE CHILD IN REHAB, AND ANOTHER LIVES ABOUT AN HOUR AND 1/2 AWAY FROM PT. Feels Safe at Home: Yes Safety Concerns Comment: Talking about getting LifeAlert due to incidents late/middle night/shower Childhood Exposure to Second-Hand Smoke: No caffeine: Yes during the past year weight has: remained stable Dental Care, Regularly: Yes Physical Activity Frequency: Daily Seatbelt Use: always Sunscreen Use: Yes Assistive Devices: Cane and Glasses Review of Systems Review of Systems: All systems reviewed & are unremarkable except as noted in HPI & below Physical Exam Physical Exam: General: morbidly obese female patient resting comfortably in bed, ill in appearance, AA&O x 4 Skin: warm, dry, intact, no rashes or lesions, chronic skin changes noted on LLE HEENT: NC/AT, PERRL, EOMI, anicteric sclera, conjunctiva without injection, external ear normal to inspection and nontender, nares patent, moist mucus membranes, dentition intact, no oropharyngeal lesions, neck supple, trachea midline, no LAD, no thyromegaly, no JVD Heart: +S1/S2, regular, bradycardic, no m/r/g Lungs: Patient speaking in complete sentences with minimal dyspnea, 3L supplemental O2 by NC, equal air entry bilaterally, +crackles at RLL with diminished breath sounds at right base, diffuse end-expiratory wheezing Abd: +BS, soft, NT/ND, no masses/organomegaly/ascites Ext: warm, 2+ pulses in UE/LE bilaterally, no clubbing/cyanosis, trace edema Neuro: nonfocal, patient AA&O x 4, speech intact, no facial droop, moving all extremities on command with equal strength 5/5 Results & Data Results & Data ([facility]) Vital Signs (Past 12 Hours) Vital Signs Temp Pulse Pulse Resp BP BP Pulse Ox 01/08/22 19:27 89 L 01/08/22 18:30 69 20 172/76 H 95 01/08/22 17:24 38.2 C H 68 24 165/69 H 85 L O2 Del Method O2 Flow Rate 01/08/22 19:27 Nasal Cannula 0 01/08/22 18:30 Nasal Cannula 2 01/08/22 17:24 Room Air Laboratory Results Laboratory Results WBC 13.27 K/ul (4.8-10.8) H 01/08/22 18:56 RBC 4.10 M/uL (3.93-5.22) 01/08/22 18:56 Hgb 11.6 g/dl (12.0-16.0) L 01/08/22 18:56 Hct 35.9 % (34.1-44.9) 01/08/22 18:56 MCV 87.6 fL (80.0-100.0) 01/08/22 18:56 MCH 28.3 pg (25.0-34.0) 01/08/22 18:56 MCHC 32.3 g/dL (32.0-36.0) 01/08/22 18:56 RDW Std Deviation 46.0 fL (36.4-46.3) 01/08/22 18:56 RDW Coeff of Sonal 14.2 % (11.5-14.5) 01/08/22 18:56 Plt Count 230 K/uL (130-400) 01/08/22 18:56 MPV 9.7 fL (9.4-12.3) 01/08/22 18:56 Immature Gran % (Auto) 0.5 % 01/08/22 18:56 Neut % (Auto) 81.1 % 01/08/22 18:56 Lymph % (Auto) 9.9 % 01/08/22 18:56 [place] % (Auto) 7.3 % 01/08/22 18:56 Eos % (Auto) 0.8 % 01/08/22 18:56 Baso % (Auto) 0.4 % 01/08/22 18:56 Neut # (Auto) 10.78 K/uL (1.4-6.5) H 01/08/22 18:56 Lymph # (Auto) 1.31 K/uL (1.2-3.4) 01/08/22 18:56 [place] # (Auto) 0.97 K/uL (0.24-0.82) H 01/08/22 18:56 Eos # (Auto) 0.10 K/uL (0-0.50) 01/08/22 18:56 Baso # (Auto) 0.05 K/uL (0-0.2) 01/08/22 18:56 Immature Gran # (Auto) 0.06 K/uL (0.00-0.02) H 01/08/22 18:56 Sodium 134 mmol/L (136-145) L 01/08/22 18:56 Potassium 4.2 mmol/L (3.5-5.1) 01/08/22 18:56 Chloride 96 mmol/L (98-107) L 01/08/22 18:56 Carbon Dioxide 31 mmol/L (21-32) 01/08/22 18:56 Anion Gap 7 (3-11) 01/08/22 18:56 BUN 13 mg/dl (6-23) 01/08/22 18:56 Creatinine 0.83 mg/dl (0.6-1.2) 01/08/22 18:56 Est Cr Clr Drug Dosing 75.8 ml/min 01/08/22 18:56 Est GFR ( Amer) 80.5 ml/min 01/08/22 18:56 Est GFR (Non-Af Amer) 69.5 ml/min 01/08/22 18:56 BUN/Creatinine Ratio 15.7 (10-20) 01/08/22 18:56 Glucose 113 mg/dl (70-99(Fasting)) H 01/08/22 18:56 Lactate 0.9 mmol/L (0.4-2.0) 01/08/22 18:56 Calcium 9.3 mg/dl (8.5-10.1) 01/08/22 18:56 Magnesium 2.1 mg/dl (1.7-2.4) 01/08/22 18:56 Total Bilirubin 0.8 mg/dl (0.2-1.0) 01/08/22 18:56 AST 16 U/L (13-39) 01/08/22 18:56 ALT 8 U/L (7-52) 01/08/22 18:56 Alkaline Phosphatase 103 U/L (34-104) 01/08/22 18:56 Troponin I High Sens 14.2 pg/ml (0-14) H 01/08/22 18:56 B-Natriuretic Peptide 328 pg/ml (0-100) H 01/08/22 18:56 Total Protein 7.5 gm/dl (6.0-8.3) 01/08/22 18:56 Albumin 3.6 gm/dl (3.4-5.0) 01/08/22 18:56 Globulin 3.9 gm/dl (2.5-4.0) 01/08/22 18:56 Albumin/Globulin Ratio 0.9 (0.9-2) 01/08/22 18:56 Impressions Chest X-Ray 01/08/22 18:17 XR chest 1V portable CLINICAL HISTORY: Dyspnea TECHNIQUE: Single frontal radiograph of the chest was obtained. Comparison: Comparison is made to chest radiograph 11/23/2020 FINDINGS: Exam is limited by underpenetration. Cardiomegaly is noted. Airspace opacity is seen in the right lower lobe. Mild pulmonary edema is seen. No evidence of pleural effusion or pneumothorax. IMPRESSION: 1. Airspace opacity in the right lower lobe may represent atelectasis, pneumonia, and/or aspiration. 2. Mild pulmonary edema with cardiomegaly. ACT 112: Negative or not required by law. Electronically signed by: Srini Contreras M.D. 01/08/2022 6:43 PM ECG Additional Comments: NSR at 70, normal axis, OU=080, WBZ=913, IAx=991, RBBB present, no acute ischemic changes PG Care Time/CCT Total # of Minutes Spent Total Time Spent with Patient: Total time spent is greater than 50% in coordination of care (as documented) at patient's floor/unit and/or counseling patient: Coding Level of Care Code 60119 Initial Inpt Care Lvl 3 Diagnoses Right lower lobe pneumonia J18.9 COPD (chronic obstructive pulmonary disease) J44.9 Atrial fibrillation I48.0 Atrial fibrillation type: paroxysmal Hypertension I10 Hypertension type: primary hypertension Hypothyroid E03.9 Type 2 diabetes mellitus E11.9 Hyperlipemia E78.5 CHF (congestive heart failure) I50.9 GERD (gastroesophageal reflux disease) K21.9 (1) Atrial fibrillation Atrial fibrillation type: paroxysmal Qualified Code(s): I48.0 - Paroxysmal atrial fibrillation (2) Hypertension Hypertension type: primary hypertension Qualified Code(s): I10 - Essential (primary) hypertension
[2022-01-08] MEDS ORDERED: ONDANSETRON INJ 2 MG/ML 2 ML VIAL IV PRN (23:28)
[2022-01-08] MEDS ORDERED: ACETAMINOPHEN 325 MG TAB PO PRN (23:28)
[2022-01-08] MEDS ORDERED: DOCUSATE SODIUM 100 MG CAP PO PRN (23:28)
[2022-01-08] MEDS ORDERED: FUROSEMIDE INJ 20 MG/2 ML VIAL IV ONE (23:28)
[2022-01-08] MEDS ORDERED: ALBUTEROL 0.083% NEBU SOLN 3 ML VIAL NEB PRN (23:28)
[2022-01-09 00:06] LABS: Appearance Urine Clear (Clear); Bacteria Urine Automated Negative (Negative); Bilirubin Urine Negative (Negative); Blood Urine Trace (Negative); Color Urine Yellow; Glucose Urine UA Negative (Negative); Ketones Urine Negative (Negative); Leukocyte Esterase Urine Negative (Negative); Nitrite Urine Negative (Negative); Protein Urine Negative (Negative); RBC Urine Automated 0-4 /hpf (0-4); Specific Gravity Urine 1.006 (1.000-1.030); Urobilinogen Urine Negative (Negative); WBC Urine Automated 0 /hpf (0-5); pH Urine 6.5 (4.5-7.5)
[2022-01-09] MEDS: ALBUT/IPRATROP 3MG/0.5MG NEB 3 ML VIAL NEB SCH ×7 (00:47→22:26)
[2022-01-09] MEDS: MONTELUKAST SODIUM 10 MG TABLET PO SCH ×2 (01:00→20:32)
[2022-01-09] MEDS: FLECAINIDE ACETATE 100 MG TABLET PO SCH ×3 (01:00→20:32)
[2022-01-09] MEDS: ATORVASTATIN 20 MG TAB PO SCH ×2 (01:00→20:33)
[2022-01-09] MEDS: RIVAROXABAN 20 MG TAB PO SCH ×2 (01:01→20:32)
[2022-01-09] MEDS: LATANOPROST 0.005% OP SOLN 2.5 ML BTL OP SCH ×2 (01:01→20:31)
[2022-01-09] MEDS: GABAPENTIN 300 MG CAP PO SCH ×3 (01:01→20:33)
[2022-01-09] MEDS: guaiFENesin 600 MG TABCR PO SCH ×3 (01:01→20:32)
[2022-01-09] MEDS: LEVOTHYROXINE SODIUM 75 MCG TABLET PO SCH (05:48)
[2022-01-09 06:23] LABS: Hematocrit (blood only) 35.3 % (34.1-44.9); Hemoglobin 11.1 g/dl (12.0-16.0); Mean Corpuscular Hgb Conc 31.4 g/dL (32.0-36.0); Mean Corpuscular Volume 88.9 fL (80.0-100.0); Mean Platelet Volume 9.7 fL (9.4-12.3); Platelet Count 223 K/uL (130-400); RDW Standard Deviation 45.5 fL (36.4-46.3); Red Blood Count 3.97 M/uL (3.93-5.22); White Blood Count 9.93 K/ul (4.8-10.8)
[2022-01-09 06:52] LABS: Basophils # (auto) 0.01 K/uL (0-0.2); Basophils % (auto) 0.1 %; Immature Granulocytes # (auto) 0.06 K/uL (0.00-0.02); Immature Granulocytes % (auto) 0.6 %; Lymphocytes # (auto) 0.63 K/uL (1.2-3.4); Lymphocytes % (auto) 6.3 %; Monocytes # (auto) 0.06 K/uL (0.24-0.82); Monocytes % (auto) 0.6 %; Neutrophils # (auto) 9.17 K/uL (1.4-6.5); Neutrophils % (auto) 92.4 %
[2022-01-09 07:01] LABS: BUN Creatinine Ratio 17.3 (10-20); Calcium 9.2 mg/dl (8.5-10.1); Creatinine Clr Calc Pharmacy 82.4 ml/min; Est GFR (Non-African American) 78.5 ml/min
[2022-01-09] MEDS: METOPROLOL SUCC 50MG EXT REL TAB PO SCH (08:54)
[2022-01-09] MEDS: PANTOprazole 40 MG TAB PO SCH (08:54)
[2022-01-09] MEDS: FUROSEMIDE 20 MG TAB PO SCH (08:54)
[2022-01-09] MEDS: amLODIPine BESYLATE 5 MG TAB PO SCH (08:55)
[2022-01-09] MEDS: DOXYCYCLINE HYCLATE 100 MG in DEXTROSE 5% 100 ML IV SCH ×2 (09:10→20:31)
[2022-01-09] MEDS: methylPREDNISolone 40 MG in SYRINGE 0 ML IV SCH ×3 (09:10→20:30)
--- NOTE | 2022-01-09 15:04 | Hospitalist Progress Note ---
Date of Service January 09, 2022 Assessment & Plan (1) Right lower lobe pneumonia: Plan: 76yo female with history of COPD, restrictive lung disease, HTN, HLP, CHF presenting with 3-4 days of productive cough, SOB as well as fever/chills/malaise. Patient with sick contacts - family members ill. No known Covid-19 exposure. CXR with airspace opacity in the RLL. Patient uses supplemental O2 at home 2L at night and with naps. Patient most likely with CAP, no recent hospitalizations. CURB 65 = 1 (low risk), Class III (low risk) by PSI/Port -Admit to medical -Follow blood cultures-= NGTD -Ceftriaxone 2gm IV daily -Doxycycline 1gm IV BID -Mucinex, Flutter valve, incentive spirometry -Tylenol PRN -Supplemental O2 as needed (2) Sepsis: Plan: Patient meets sepsis criteria with fever and elevated WBC of 13.27 with neutrophil predominance and elevated bands. Hypoxic on arrival at 85% on room air which improved with 3L supplemental O2 by NC. - Source pneumonia - Resolved fever, WBC and no further evidence of organ dysfunction- back to baseline home o2 needs - continue supportive care and abx as above (3) COPD (chronic obstructive pulmonary disease): Plan: Patient with restrictive lung disease secondary to morbid obesity as well as obstructive lung disease. She has some diffuse end-expiratory wheezing. She received Solumedrol 125mg IV in the ER -DuoNeb q 4 hours scheduled -Albuterol q 2 hours PRN -Mucinex, flutter valve, incentive spirometry -Supplemental O2 as needed -Solumedrol 40mg IV TID- likely discontinue this 01/10/22 -Continue Singulair 10mg po qHS - resume home Symbicort BID (4) Atrial fibrillation: Plan: Chronic. Rate controlled. Anticoagulated on Rivaroxaban 20mg po qPM -Continue Rivaroxaban -Continue Flecainide -Continue Metoprolol (5) Hypertension: Plan: Blood pressure mildly elevated -Continue Amlodipine 5mg po daily -Continue metoprolol - remains elevated thorough out evening- received AM medications- recheck BP as this has not been done since medication administration -Continue to monitor (6) Hypothyroid: Plan: Chronic. Stable. TSH within normal limits at 1.7 in August 2021 -Continue Synthroid (7) Type 2 diabetes mellitus: Plan: Diet controlled. HgbA1C on 09/08/21 = 6 -Monitor (8) Hyperlipemia: Plan: Chronic. Stable -Continue Atorvastatin (9) CHF (congestive heart failure): Plan: Patient denies orthopnea, weight gain. Has had some mild swelling in her right foot. BNP elevated at 328 (may be falsely low due to obesity). Review of prior weight - patient 126.7 kg today, slightly higher than previous. - Does not appear to be an acute exacerbation at this time- IV diureses for pulmonary support -Will give Lasix 20mg IV x 1 dose -Continue home PO dosing -Monitor I/Os, daily weights - (10) GERD (gastroesophageal reflux disease): Plan: Chronic. Patient reports occasional hoarseness as well as occasional esophageal dysphagia. No odynophagia. No oral lesions. -Continue Protonix -Consider referral for outpatient EGD Admission and Anticipated Discharge Date Admission Date: January 08, 2022 Supervising Physician Co-Signing Physician Notes CALIXTO Supervision Note: I did not personally see or examine the patient today, but I verified all cisneros points of CALIXTO Boo's assessment and plan with the following exceptions/ additions: None Subjective Patient is HD#1 admitted for Pneumonia with underlying COPD, she has had an increase in cough, dyspnea, coughing and pleuritic chest pain. Secretions have been jean and yellow with right lower lobe opacity, febrile, and with elevated WBC count- consistent with pneumonia. She was started on Ceftriaxone and Doxycycline - which have been continued. She was started on IV steroids and continued with her nebulizers and was diuresed on admission. Patient seen this afternoon, she states that she feels slightly better than when she was admitted. She feels that she is coughing less and not as fatigued. Review of Systems Review of Systems: REVIEW OF SYSTEMS: Constitutional: No fever, sweats or chills Eyes: No diplopia, no worsening or blurred vision ENT: normal hearing, no trouble swallowing Respiratory: (+) cough, sputum, dyspnea at rest or on exertion Cardiovascular: No chest pain, tightness or palpitations Abdomen: No pain, nausea, vomiting, diarrhea or constipation Musculoskeletal: No joint pain, calf pain, swelling Neurologic: No weakness, numbness/tingling, or balance problems Psychiatric: No anxiety or depression Skin: No rash or itch Physical Exam Physical Exam: PHYSICAL EXAM: General: awake, alert, no apparent distress Head: Normocephalic, atraumatic ENT: PERRL, EOMI, no pharyngeal exudate, mucous membranes moist Neuro: AAO x 3, speech clear and appropriate, strength intact bilaterally 5/5, sensation intact and equal all extremities and dermatomes, no pronator drift Chest: equal rise and fall of the chest, no accessory muscle use, decreased in bases with end expiratory wheeze, productive cough Cardiac: Regular rate and rhythm, skin warm dry, cap refill <3 seconds, peripheral pulses +2 no JVD, no murmur, trace edema GI: NABS x 4 quadrants, soft, nontender to palpation, no rebound, guarding or tenderness : Spontaneously voiding, no pain, no CVA tenderness, Extremities: Normal inspection, no peripheral edema or erythema, calfs nontender to palpation Psych: Normal mood and affect Skin: no rash or erythema Results & Data Results & Data ([facility]) Vital Signs (Past 12 Hours) Vital Signs Temp Pulse Resp BP Pulse Ox O2 Del Method O2 Flow Rate 01/09/22 14:23 64 17 95 Nasal Cannula 2 01/09/22 11:43 18 93 Nasal Cannula 1 01/09/22 07:46 36.7 C 65 18 163/74 H 94 Nasal Cannula 2 01/09/22 07:24 78 18 96 Nasal Cannula 2 01/09/22 03:30 52 L Nasal Cannula 3 Laboratory Results Abnormal lab results 01/08/22 01/08/22 01/08/22 Range/Units 18:56 18:56 18:56 WBC 13.27 H (4.8-10.8) K/ul Hgb 11.6 L (12.0-16.0) g/dl MCHC (32.0-36.0) g/dL Neut # (Auto) 10.78 H (1.4-6.5) K/uL Lymph # (Auto) (1.2-3.4) K/uL [place] # (Auto) 0.97 H (0.24-0.82) K/uL Immature Gran # (Auto) 0.06 H (0.00-0.02) K/uL Sodium 134 L (136-145) mmol/L Chloride 96 L (98-107) mmol/L Glucose 113 H (70-99(Fasting)) mg/dl Troponin I High Sens 14.2 H (0-14) pg/ml B-Natriuretic Peptide 328 H (0-100) pg/ml Urine Blood (Negative) U Epithel Cells (Auto) (0-5) /lpf 01/08/22 01/09/22 01/09/22 Range/Units 23:53 05:51 05:51 WBC (4.8-10.8) K/ul Hgb 11.1 L (12.0-16.0) g/dl MCHC 31.4 L (32.0-36.0) g/dL Neut # (Auto) 9.17 H (1.4-6.5) K/uL Lymph # (Auto) 0.63 L (1.2-3.4) K/uL [place] # (Auto) 0.06 L (0.24-0.82) K/uL Immature Gran # (Auto) 0.06 H (0.00-0.02) K/uL Sodium (136-145) mmol/L Chloride (98-107) mmol/L Glucose 182 H (70-99(Fasting)) mg/dl Troponin I High Sens (0-14) pg/ml B-Natriuretic Peptide (0-100) pg/ml Urine Blood Trace H (Negative) U Epithel Cells (Auto) 10-20 H (0-5) /lpf Diagnostic Findings Chest X-Ray 01/08/22 18:17 XR chest 1V portable CLINICAL HISTORY: Dyspnea TECHNIQUE: Single frontal radiograph of the chest was obtained. Comparison: Comparison is made to chest radiograph 11/23/2020 FINDINGS: Exam is limited by underpenetration. Cardiomegaly is noted. Airspace opacity is seen in the right lower lobe. Mild pulmonary edema is seen. No evidence of pleural effusion or pneumothorax. IMPRESSION: 1. Airspace opacity in the right lower lobe may represent atelectasis, pneumonia, and/or aspiration. 2. Mild pulmonary edema with cardiomegaly. ACT 112: Negative or not required by law. Electronically signed by: Srini Contreras M.D. 01/08/2022 6:43 PM Medications Administered Home Medications calcium carbonate 500 mg-vitamin D3 5 mcg (200 unit) tablet 1 tab PO PM 01/14/19 [History Confirmed 01/08/22] cyclosporine 0.05 % eye drops in a dropperette (Restasis) 1 drops ophthalmic (eye) BID 01/14/19 [History Confirmed 01/08/22] docusate sodium 100 mg capsule 100 mg PO QAM PRN Constipation 01/14/19 [History Confirmed 01/08/22] latanoprost 0.005 % eye drops 1 drops ophthalmic (eye) HS 01/14/19 [History Confirmed 01/08/22] nebulizer accessories #1 ea 03/26/20 [Rx Confirmed 09/11/21] nebulizers #1 ea 09/09/20 [Rx Confirmed 09/11/21] compression socks, x-large #2 ea 11/07/20 [Rx Confirmed 09/11/21] miscellaneous medical supply #1 ea 11/07/20 [Rx Confirmed 09/11/21] nebulizer accessories #1 ea 11/07/20 [Rx Confirmed 09/11/21] atorvastatin 20 mg tablet 20 mg PO QPM #90 tabs 04/10/21 [Rx Confirmed 01/08/22] gabapentin 300 mg capsule 300 mg PO BID #270 caps 04/10/21 [Rx Confirmed 01/08/22] pantoprazole 40 mg tablet,delayed release 40 mg PO QAM #90 tabs 05/22/21 [Rx Confirmed 01/08/22] flecainide 100 mg tablet 100 mg PO Q12H #180 tabs 06/10/21 [Rx Confirmed 01/08/22] montelukast 10 mg tablet 10 mg PO HS #90 tabs 07/24/21 [Rx Confirmed 01/08/22] amoxicillin 500 mg capsule See Rx Instructions .Route .COMPLEX #4 caps 07/28/21 [Rx Confirmed 01/08/22] cimetidine 400 mg tablet 400 mg PO HS #90 tabs 08/19/21 [Rx Confirmed 01/08/22] furosemide 20 mg tablet 20 mg PO QAM #90 tabs 09/02/21 [Rx Confirmed 01/08/22] levalbuterol tartrate 45 mcg/actuation aerosol inhaler (Xopenex HFA) 2 inh inhalation Q4H PRN sob #15 grams 09/03/21 [Rx Confirmed 01/08/22] nystatin 100,000 unit/gram topical cream 1 applic topical TID PRN Skin Irritation #30 grams 09/26/21 [Rx Confirmed 01/08/22] levothyroxine 75 mcg tablet 75 mcg PO QAM #90 tabs 10/29/21 [Rx Confirmed 01/08/22] Symbicort 160 mcg-4.5 mcg/actuation HFA aerosol inhaler (budesonide-formoterol) 2 puff inhalation BID #3 Inhalers 12/09/21 [Rx Confirmed 01/08/22] rivaroxaban 20 mg tablet 20 mg PO QPM #90 tabs 12/11/21 [Rx Confirmed 01/08/22] amlodipine 5 mg tablet 5 mg PO QAM #90 tabs 12/12/21 [Rx Confirmed 01/08/22] metoprolol succinate 100 mg capsule sprinkle, ext. release 24 hr 100 mg PO QAM #90 ea 12/24/21 [Rx Confirmed 01/08/22] ipratropium bromide 0.02 % solution for inhalation 2.5 ml inhalation Q6H PRN shortness of breath or wheezing #150 mL 12/29/21 [Rx Confirmed 01/08/22] levalbuterol HCl 1.25 mg/3 mL solution for nebulization 1.25 mg inhalation Q4H PRN Shortness Of Breath Or Wheezing 01/08/22 [History Confirmed 01/08/22] Active Medications Acetaminophen (Acetaminophen 325 Mg Tab) 650 mg PO Q4H PRN PRN Reason: Pain or Fever Stop: 02/07/22 23:27 Albuterol (Albut/Ipratrop 3mg/0.5mg Neb 3 Ml Vial) 3 ml NEB Q4R JOVANNA; Protocol Stop: 02/07/22 23:27 Last Admin: 01/09/22 14:22 Dose: 3 ml Albuterol (Albuterol 0.083% Nebu Soln 3 Ml Vial) 2.5 mg NEB Q2H PRN; Protocol PRN Reason: SOB/Wheeze Stop: 02/07/22 23:27 Amlodipine Besylate (Amlodipine Besylate 5 Mg Tab) 5 mg PO QAM JOVANNA Stop: 02/08/22 08:59 Last Admin: 01/09/22 08:55 Dose: 5 mg Atorvastatin Calcium (Atorvastatin 20 Mg Tab) 20 mg PO QPM JOVANNA Stop: 02/07/22 23:27 Last Admin: 01/09/22 01:00 Dose: 20 mg Docusate Sodium (Docusate Sodium 100 Mg Cap) 100 mg PO QAM PRN PRN Reason: Constipation Stop: 02/07/22 23:27 Flecainide Acetate (Flecainide Acetate 100 Mg Tablet) 100 mg PO Q12H JOVANNA Stop: 02/07/22 23:27 Last Admin: 01/09/22 08:55 Dose: 100 mg Fluticasone/Vilanterol (Fluticasone/Vilanterol 100/25mcg 14 Puffs/Inhaler) 1 puffs INH DAILY JOVANNA Stop: 02/09/22 08:59 Furosemide (Furosemide 20 Mg Tab) 20 mg PO QAM JOVANNA Stop: 02/08/22 08:59 Last Admin: 01/09/22 08:54 Dose: 20 mg Gabapentin (Gabapentin 300 Mg Cap) 300 mg PO BID JOVANNA Stop: 02/07/22 23:27 Last Admin: 01/09/22 08:54 Dose: 300 mg Guaifenesin (Guaifenesin 600 Mg Tabcr) 1,200 mg PO Q12 JOVANNA Stop: 02/07/22 23:27 Last Admin: 01/09/22 08:54 Dose: 1,200 mg Doxycycline Hyclate 100 mg/ (Dextrose) 110 mls @ 50 mls/hr IV Q12H [facility] Stop: 01/16/22 08:59 Last Infusion: 01/09/22 11:36 Dose: Infused Ceftriaxone Sodium 2,000 mg/ (Dextrose) 70 mls @ 140 mls/hr IV Q24H [facility]; Protocol Stop: 01/16/22 19:59 Methylprednisolone 40 mg/ (Syringe) 0.64 mls @ 1.5 mls/min IV TID JOVANNA Stop: 02/08/22 08:59 Last Admin: 01/09/22 15:13 Dose: 1.5 mls/min Latanoprost (Latanoprost 0.005% Op Soln 2.5 Ml Btl) 1 drops OP HS [facility] Stop: 02/07/22 23:27 Last Admin: 01/09/22 01:01 Dose: 1 drops Levothyroxine Sodium (Levothyroxine Sodium 75 Mcg Tablet) 75 mcg PO DAILYBB JOVANNA Stop: 02/08/22 06:29 Last Admin: 01/09/22 05:48 Dose: 75 mcg Metoprolol Succinate (Metoprolol Succ 50mg Ext Rel Tab) 100 mg PO QAM [facility] Stop: 02/08/22 08:59 Last Admin: 01/09/22 08:54 Dose: 100 mg Montelukast Sodium (Montelukast Sodium 10 Mg Tablet) 10 mg PO HS [facility] Stop: 02/07/22 23:27 Last Admin: 01/09/22 01:00 Dose: 10 mg Ondansetron HCl (Ondansetron Inj 2 Mg/Ml 2 Ml Vial) 4 mg IV Q6H PRN PRN Reason: Nausea Stop: 02/07/22 23:27 Pantoprazole Sodium (Pantoprazole 40 Mg Tab) 40 mg PO QAM [facility] Stop: 02/08/22 08:59 Last Admin: 01/09/22 08:54 Dose: 40 mg Rivaroxaban (Rivaroxaban 20 Mg Tab) 20 mg PO QPM [facility] Stop: 02/07/22 23:27 Last Admin: 01/09/22 01:01 Dose: 20 mg PG Care Time/CCT Total # of Minutes Spent Total Time Spent with Patient: Total time spent is greater than 50% in coordination of care (as documented) at patient's floor/unit and/or counseling patient: Coding Level of Care Code 92342 Subseq Hosp Care Lvl 3 Diagnoses Right lower lobe pneumonia J18.9 Sepsis A41.9 COPD (chronic obstructive pulmonary disease) J44.9 Atrial fibrillation I48.0 Atrial fibrillation type: paroxysmal Hypertension I10 Hypertension type: primary hypertension Hypothyroid E03.9 Type 2 diabetes mellitus E11.9 Hyperlipemia E78.5 CHF (congestive heart failure) I50.9 GERD (gastroesophageal reflux disease) K21.9 (1) Atrial fibrillation Atrial fibrillation type: paroxysmal Qualified Code(s): I48.0 - Paroxysmal atrial fibrillation (2) Hypertension Hypertension type: primary hypertension Qualified Code(s): I10 - Essential (primary) hypertension
[2022-01-09] MEDS: cefTRIAXone SODIUM 2,000 MG in DEXTROSE 5% 50 ML IV SCH (20:31)
[2022-01-10] MEDS: ALBUT/IPRATROP 3MG/0.5MG NEB 3 ML VIAL NEB SCH ×6 (02:41→22:51)
--- NOTE | 2022-01-10 05:56 | Electrocardiogram Report ---
Test Reason : Blood Pressure : / mmHG Vent. Rate : 070 BPM Atrial Rate : 070 BPM P-R Int : 178 ms QRS Dur : 176 ms QT Int : 444 ms P-R-T Axes : 044 -21 027 degrees QTc Int : 479 ms Normal sinus rhythm Right bundle branch block Abnormal ECG When compared with ECG of 23-NOV-2020 03:40, No significant change was found Confirmed by Hakan Kyle ([id number]) on 01/10/2022 5:56:23 AM Referred By: REFERRED SELF Confirmed By:Hakan Kyle
[2022-01-10] MEDS: LEVOTHYROXINE SODIUM 75 MCG TABLET PO SCH (06:04)
[2022-01-10] MEDS: methylPREDNISolone 40 MG in SYRINGE 0 ML IV SCH (08:04)
[2022-01-10] MEDS: guaiFENesin 600 MG TABCR PO SCH ×2 (08:04→21:01)
[2022-01-10] MEDS: FLECAINIDE ACETATE 100 MG TABLET PO SCH ×2 (08:05→21:01)
[2022-01-10] MEDS: PANTOprazole 40 MG TAB PO SCH (08:05)
[2022-01-10] MEDS: METOPROLOL SUCC 50MG EXT REL TAB PO SCH (08:05)
[2022-01-10] MEDS: FUROSEMIDE 20 MG TAB PO SCH (08:05)
[2022-01-10] MEDS: amLODIPine BESYLATE 5 MG TAB PO SCH (08:05)
[2022-01-10] MEDS: GABAPENTIN 300 MG CAP PO SCH ×2 (08:05→21:02)
[2022-01-10] MEDS: FLUTICASONE/VILANTEROL 100/25MCG 14 PUFFS/INHALER INH SCH (09:03)
[2022-01-10] MEDS: DOXYCYCLINE HYCLATE 100 MG in DEXTROSE 5% 100 ML IV SCH (09:04)
--- NOTE | 2022-01-10 11:31 | Hospitalist Progress Note ---
Date of Service January 10, 2022 Assessment & Plan (1) Right lower lobe pneumonia: Plan: 76yo female with history of COPD, restrictive lung disease, HTN, HLP, CHF presenting with 3-4 days of productive cough, SOB as well as fever/chills/malaise. Patient with sick contacts - family members ill. No known Covid-19 exposure. With acute respiratory failure with hypoxia -CXR with airspace opacity in the RLL. -Patient uses 2L at night and with naps But normally does not require this continuously. She does endorse chronic issues with exertional dyspnea --Patient most likely with CAP, no recent hospitalizations. CURB 65 = 1 (low risk), Class III (low risk) by PSI/Port -BCx NGTD -Ceftriaxone 2gm IV daily change Doxycycline 100 mg BID to PO; Likely can finish her course with oral cefdinir prior to discharge -Mucinex, Flutter valve, incentive spirometry -Tylenol PRN -Supplemental O2 as needed - Continue to wean as tolerated. Plan for two-step prior to discharge. Patient was hoping to get a smaller more portable concentrator. This may be difficult to do if she only needs it with sleep. As well, supply shortages exist for smaller more portable concentrator's. (2) Sepsis: Plan: Patient met sepsis criteria with fever and elevated WBC of 13.27 with neutrophil predominance and elevated bands. Hypoxic on arrival at 85% on room air which improved with 3L supplemental O2 by NC. - Source pneumonia - Resolved fever and WBC. Has been titrated down to 1 to 2 L NC - Two-step will be needed prior to DC - Continue supportive care and abx as above (3) COPD (chronic obstructive pulmonary disease): Plan: Patient with restrictive lung disease secondary to morbid obesity as well as obstructive lung disease. She has some diffuse end-expiratory wheezing. She received Solumedrol 125mg IV in the ER -DuoNeb q 4 hours scheduled and albuterol as needed - We will continue this for now -Mucinex, flutter valve, incentive spirometry -Supplemental O2 as needed -Solumedrol 40mg IV TID was placed initially. Given good response, will convert to prednisone 40 mg daily and monitor for continued response -Continue Singulair 10mg po qHS -Resume home Symbicort BID (4) Atrial fibrillation: Plan: Chronic. Rate controlled. Anticoagulated on Rivaroxaban 20mg po qPM -Continue Rivaroxaban -Continue Flecainide -Continue Metoprolol (5) Hypertension: Plan: Blood pressure mildly elevated but slightly better today -Continue Amlodipine 5mg po daily -Continue metoprolol -Continue to monitor (6) Hypothyroid: Plan: Chronic. Stable. TSH within normal limits at 1.7 in August 2021 -Continue Synthroid (7) Type 2 diabetes mellitus: Plan: Diet controlled. HgbA1C on 09/08/21 = 6 -Monitor (8) Hyperlipemia: Plan: Chronic. Stable -Continue Atorvastatin (9) CHF (congestive heart failure): Plan: Patient denies orthopnea, weight gain. Has had some mild swelling in her right foot. She reports this is chronic since her knee surgery. BNP elevated at 328 (may be falsely low due to obesity). Review of prior weight - patient 126.7 kg today, slightly higher than previous. - Does not appear to be an acute exacerbation at this time- IV diureses for pulmonary support was given -Give Lasix 20mg IV x 1 dose - will monitor today - per I&Os she is at a total negative balance of approx. 2 L -Continue home PO dosing -Monitor I/Os, daily weights (10) GERD (gastroesophageal reflux disease): Plan: Chronic. Patient reports occasional hoarseness as well as occasional esophageal dysphagia. No odynophagia. No oral lesions. -Continue Protonix -Consider referral for outpatient EGD Plan Continue to monitor and wean O2 as tolerated. Convert to oral steroids to begin taper. Pending reassessment, hopeful D/C next 1-2 days Admission and Anticipated Discharge Date Admission Date: January 08, 2022 Supervising Physician Co-Signing Physician Notes AIDA Supervision Note: I did not personally see or examine the patient today, but I verified all cisneros points of AIDA Chu's assessment and plan with the following exceptions/additions: None Subjective No acute events overnight. She feels even better today compared to yesterday. She states her cough is becoming more productive and she is able to expectorate the mucus easier. She feels that she is less winded. She does endorse chronic dyspnea on exertion. She currently is still requiring supplemental oxygen throughout the day. She normally only uses oxygen for sleep purposes.She is tolerating a diet without issue. She does endorse chronic incontinence and currently is utilizing a pure wick. She has not moved her bowels in a couple days and feels she may be able to go today. She denies nausea/vomiting. She denies abdominal pain.She verbalizes no new complaints. Review of Systems Review of Systems: 10 point review of systems completed. Unremarkable unless stated above. Physical Exam Physical Exam: PHYSICAL EXAM General Appearance: WDWN in NAD who is A&O x 3 HEENT: Head is normocephalic/atraumatic; Hearing grossly intact; Mucous membra kory moist; Currently with dentures out Neck: Supple; Trachea midline; Neg JVD Heart: RRR with no M/G/R Lungs: Very minimal expiratory wheeze and diminished at the bases; Respirations unlabored; Neg accessory muscle use; + productive cough Abdomen: Soft, non-tender, non-distended; Positive BS x 4 quadrants; Neg organomegaly Extremities: Capillary refill < 2 seconds; Neg cyanosis or edema Neurological: Speech clear; Gross motor/sensory function intact; Neg focal neurologic deficits Psychiatric: Appropriate mood/affect Skin: Normal Color; Warm/Dry; Some mild chronic venous stasis changes to the bilateral [place] region Results & Data Results & Data ([facility]) Vital Signs (Past 12 Hours) Vital Signs Temp Pulse Resp BP Pulse Ox O2 Del Method O2 Flow Rate 01/10/22 10:52 68 20 96 Nasal Cannula 2 01/10/22 07:43 36.8 C 68 18 154/62 H 95 1 01/10/22 07:19 96 H 20 96 Nasal Cannula 2 01/10/22 02:41 57 L 18 96 Nasal Cannula 1 PG Care Time/CCT Total # of Minutes Spent Total Time Spent with Patient: Total time spent is greater than 50% in coordination of care (as documented) at patient's floor/unit and/or counseling patient: Coding Level of Care Code 46080 Subseq Hosp Care Lvl 3 Diagnoses Right lower lobe pneumonia J18.9 Sepsis A41.9 COPD (chronic obstructive pulmonary disease) J44.9 Atrial fibrillation I48.0 Atrial fibrillation type: paroxysmal Hypertension I10 Hypertension type: primary hypertension Hypothyroid E03.9 Type 2 diabetes mellitus E11.9 Hyperlipemia E78.5 CHF (congestive heart failure) I50.9 GERD (gastroesophageal reflux disease) K21.9 (1) Atrial fibrillation Atrial fibrillation type: paroxysmal Qualified Code(s): I48.0 - Paroxysmal atrial fibrillation (2) Hypertension Hypertension type: primary hypertension Qualified Code(s): I10 - Essential (primary) hypertension
[2022-01-10] MEDS: MONTELUKAST SODIUM 10 MG TABLET PO SCH (21:01)
[2022-01-10] MEDS: RIVAROXABAN 20 MG TAB PO SCH (21:02)
[2022-01-10] MEDS: LATANOPROST 0.005% OP SOLN 2.5 ML BTL OP SCH (21:03)
[2022-01-10] MEDS: ATORVASTATIN 20 MG TAB PO SCH (21:03)
[2022-01-10] MEDS: DOXYCYCLINE HYCLATE 100 MG CAP PO SCH (21:03)
[2022-01-10] MEDS: cefTRIAXone SODIUM 2,000 MG in DEXTROSE 5% 50 ML IV SCH (21:06)
[2022-01-11] MEDS: ALBUT/IPRATROP 3MG/0.5MG NEB 3 ML VIAL NEB SCH ×5 (02:24→19:19)
[2022-01-11] MEDS: LEVOTHYROXINE SODIUM 75 MCG TABLET PO SCH (06:20)
[2022-01-11] MEDS: FUROSEMIDE 20 MG TAB PO SCH (08:40)
[2022-01-11] MEDS: predniSONE 20 MG TAB PO SCH (08:40)
[2022-01-11] MEDS: PANTOprazole 40 MG TAB PO SCH (08:41)
[2022-01-11] MEDS: FLUTICASONE/VILANTEROL 100/25MCG 14 PUFFS/INHALER INH SCH (08:41)
[2022-01-11] MEDS: guaiFENesin 600 MG TABCR PO SCH ×2 (08:41→20:14)
[2022-01-11] MEDS: DOXYCYCLINE HYCLATE 100 MG CAP PO SCH ×2 (08:41→20:13)
[2022-01-11] MEDS: amLODIPine BESYLATE 5 MG TAB PO SCH (08:41)
[2022-01-11] MEDS: GABAPENTIN 300 MG CAP PO SCH ×2 (08:41→20:13)
[2022-01-11] MEDS: METOPROLOL SUCC 50MG EXT REL TAB PO SCH (08:45)
[2022-01-11] MEDS ORDERED: METOPROLOL SUCC 50MG EXT REL TAB PO STA (08:45)
[2022-01-11] MEDS: FLECAINIDE ACETATE 100 MG TABLET PO SCH ×2 (08:54→20:13)
--- NOTE | 2022-01-11 10:38 | Hospitalist Progress Note ---
Date of Service January 11, 2022 Assessment & Plan (1) Right lower lobe pneumonia: Plan: 76yo female with history of COPD, restrictive lung disease, HTN, HLP, CHF presenting with 3-4 days of productive cough, SOB as well as fever/chills/malaise. Patient with sick contacts - family members ill. No known Covid-19 exposure. With acute respiratory failure with hypoxia -CXR with airspace opacity in the RLL. -Patient uses 2L at night and with naps but normally does not require this continuously. She does endorse chronic issues with exertional dyspnea --Patient most likely with CAP, no recent hospitalizations. CURB 65 = 1 (low risk), Class III (low risk) by PSI/Port -BCx NGTD -Ceftriaxone 2gm IV daily and Doxycycline 100 mg BID; Likely can finish her course with oral cefdinir prior to discharge. Would treat x 7 days total (01/14) -Mucinex, Flutter valve, incentive spirometry -Tylenol PRN -Supplemental O2 as needed - Continue to wean as tolerated. Plan for two-step prior to discharge. Patient was hoping to get a smaller more portable concentrator. This may be difficult to do if she only needs it with sleep. As well, supply shortages exist for smaller more portable concentrators. Can discuss with case management on Wednesday when normal application architect manager returns (2) Sepsis: Plan: Patient met sepsis criteria with fever and elevated WBC of 13.27 with neutrophil predominance and elevated bands. Hypoxic on arrival at 85% on room air which improved with 3L supplemental O2 by NC. - Source pneumonia - Resolved fever and WBC. Has been titrated down to RA to 1 L NC - Two-step will be needed prior to DC -- Given her COPD/Restrictive Lung Disease keeping her >88% is reasonable - Continue supportive care and abx as above (3) COPD (chronic obstructive pulmonary disease): Plan: Patient with restrictive lung disease secondary to morbid obesity as well as obstructive lung disease. She has some diffuse end-expiratory wheezing. She received Solumedrol 125mg IV in the ER -DuoNeb q 4 hours scheduled and albuterol as needed - We will continue this for now -Mucinex, flutter valve, incentive spirometry -Supplemental O2 as needed -Converted to prednisone 40 mg daily and monitor for continued response -Continue Singulair 10mg HS -Resume home Symbicort BID (4) Atrial fibrillation: Plan: Paroxysmal. Rate controlled. Anticoagulated on Rivaroxaban 20mg HS -Continue Rivaroxaban -Continue Flecainide -Continue Metoprolol -- HR largely steady in 50s but she reports HRs in the 40s at home and intermittent dizziness. May benefit from reduction to 75 mg BID and monitoring. She has had reductions in the past but then they got increased. She follows with Dr. Zimmer. (5) Hypertension: Plan: Blood pressure mildly elevated but slightly better today -Continue Amlodipine 5mg po daily -Continue metoprolol as stated above -Continue to monitor (6) Hypothyroid: Plan: Chronic. Stable. TSH within normal limits at 1.7 in August 2021 -Continue Synthroid (7) Type 2 diabetes mellitus: Plan: Diet controlled. HgbA1C on 09/08/21 = 6 -Monitor (8) Hyperlipemia: Plan: Chronic. Stable -Continue Atorvastatin (9) CHF (congestive heart failure): Plan: Patient denies orthopnea, weight gain. Has had some mild swelling in her right foot. She reports this is chronic since her knee surgery. BNP elevated at 328 (may be falsely low due to obesity). Review of prior weight - patient 126.7 kg today, slightly higher than previous. - Does not appear to be an acute exacerbation at this time- IV diureses for pulmonary support was given but will continue home dosing for now. Can utilize additional dosing as needed based on examination (10) GERD (gastroesophageal reflux disease): Plan: Chronic. Patient reports occasional hoarseness as well as occasional esophageal dysphagia. No odynophagia. No oral lesions. -Continue Protonix -Consider referral for outpatient EGD Plan Continue to monitor and wean O2 as tolerated. Taper oral steroids. Monitor HR with slightly reduced Metoprolol at 75 mg BID. Pending reassessment, hopeful D/C next 1-2 days Admission and Anticipated Discharge Date Admission Date: January 08, 2022 Supervising Physician Co-Signing Physician Notes PA Supervision Note: I did not personally see or examine the patient today, but I verified all cisneros points of AIDA Chu's assessment and plan with the following exceptions/additions: None Subjective No acute events overnight. She reports her lungs seem to be getting better each day. She continues to have a productive cough of white/yellow sputum and it is making her have an easier time to breath. She is intermittently on RA to 1 L. She has had chronic bradycardia averaging in the 50s. She states at home she has gone down to 40s intermittently. She does endorse intermittent dizziness more prevalently with moving. Discussed consideration for slightly reducing her Metoprolol to 75 mg BID. Reviewed previous cardiology notes and it appears she was reduced in the past and had to have it increased. She was able to move her bowels yesterday. She denies CP/SOB. She endorses chronic ARMANDO. She reports she tries to walk with her friends around the block but normally can only do one lap due to ARMANDO. She is tolerating a diet. She verbalizes no other complaints. Review of Systems Review of Systems: 10 point review of systems completed. Unremarkable unless stated above. Physical Exam Physical Exam: PHYSICAL EXAM General Appearance: WDWN in NAD who is A&O x 3 HEENT: Head is normocephalic/atraumatic; Hearing grossly intact; Mucous membranes moist Neck: Supple; Trachea midline; Neg JVD Heart: RRR with no M/G/R Lungs: CTA in all lung brown bilaterally diminished at the bases; Respirations unlabored; Neg accessory muscle use; + productive cough Abdomen: Soft, non-tender, non-distended; Positive BS x 4 quadrants Extremities: Neg cyanosis or edema Neurological: Speech clear; Gross motor/sensory function intact; Neg focal neurologic deficits Psychiatric: Appropriate mood/affect Skin: Normal Color; Warm/Dry; Some mild chronic venous stasis changes to the bilateral huffman region Results & Data Results & Data ([facility]) Vital Signs (Past 12 Hours) Vital Signs Temp Pulse Resp BP Pulse Ox O2 Del Method O2 Flow Rate 01/11/22 08:35 52 L 01/11/22 07:57 36.9 C 51 L 16 122/66 93 1 01/11/22 07:23 68 20 88 L Room Air 01/11/22 02:25 56 L 16 95 Nasal Cannula 2 01/10/22 23:37 Room Air, Nasal Cannula 2 PG Care Time/CCT Total # of Minutes Spent Total Time Spent with Patient: Total time spent is greater than 50% in coordination of care (as documented) at patient's floor/unit and/or counseling patient: Coding Level of Care Code 54766 Subseq Hosp Care Lvl 3 Diagnoses Right lower lobe pneumonia J18.9 Sepsis A41.9 COPD (chronic obstructive pulmonary disease) J44.9 Atrial fibrillation I48.0 Atrial fibrillation type: paroxysmal Hypertension I10 Hypertension type: primary hypertension Hypothyroid E03.9 Type 2 diabetes mellitus E11.9 Hyperlipemia E78.5 CHF (congestive heart failure) I50.9 GERD (gastroesophageal reflux disease) K21.9 (1) Atrial fibrillation Atrial fibrillation type: paroxysmal Qualified Code(s): I48.0 - Paroxysmal atrial fibrillation (2) Hypertension Hypertension type: primary hypertension Qualified Code(s): I10 - Essential (primary) hypertension
[2022-01-11] MEDS: ATORVASTATIN 20 MG TAB PO SCH (20:12)
[2022-01-11] MEDS: cefTRIAXone SODIUM 2,000 MG in DEXTROSE 5% 50 ML IV SCH (20:12)
[2022-01-11] MEDS: MONTELUKAST SODIUM 10 MG TABLET PO SCH (20:14)
[2022-01-11] MEDS: RIVAROXABAN 20 MG TAB PO SCH (20:14)
[2022-01-11] MEDS: LATANOPROST 0.005% OP SOLN 2.5 ML BTL OP SCH (20:15)
[2022-01-12] MEDS: LEVOTHYROXINE SODIUM 75 MCG TABLET PO SCH (05:31)
[2022-01-12] MEDS: ALBUT/IPRATROP 3MG/0.5MG NEB 3 ML VIAL NEB SCH ×3 (07:17→14:41)
[2022-01-12] MEDS: FLUTICASONE/VILANTEROL 100/25MCG 14 PUFFS/INHALER INH SCH (08:44)
[2022-01-12] MEDS: predniSONE 20 MG TAB PO SCH (08:45)
[2022-01-12] MEDS: amLODIPine BESYLATE 5 MG TAB PO SCH (08:45)
[2022-01-12] MEDS: guaiFENesin 600 MG TABCR PO SCH (08:45)
[2022-01-12] MEDS: DOXYCYCLINE HYCLATE 100 MG CAP PO SCH (08:45)
[2022-01-12] MEDS: FUROSEMIDE 20 MG TAB PO SCH (08:45)
[2022-01-12] MEDS: FLECAINIDE ACETATE 100 MG TABLET PO SCH (08:45)
[2022-01-12] MEDS: PANTOprazole 40 MG TAB PO SCH (08:45)
[2022-01-12] MEDS: GABAPENTIN 300 MG CAP PO SCH (08:46)
[2022-01-12] MEDS ORDERED: METOPROLOL SUCC 25MG EXT REL TAB PO SCH (09:00)
[2022-01-12 09:08] LABS: Albumin Globulin Ratio 0.9 (0.9-2); Albumin Level 3.2 gm/dl (3.4-5.0); BUN Creatinine Ratio 27.4 (10-20); Bilirubin,Total 0.3 mg/dl (0.2-1.0); C Reactive Protein 2.64 mg/dl (0-0.5); Creatinine Clr Calc Pharmacy 86.6 ml/min; Est GFR (Non-African American) 81.1 ml/min; Globulin 3.5 gm/dl (2.5-4.0); Magnesium 2.2 mg/dl (1.7-2.4); Potassium 3.8 mmol/L (3.5-5.1); Total Protein 6.7 gm/dl (6.0-8.3)
--- NOTE | 2022-01-12 15:36 | Discharge Summary ---
Date of Service January 12, 2022 Admission HPI Per Admitting Provider Genesis Alfonso is a 76yo female with history of atrial fibrillation on anticoagulation, COPD, Obstructive lung disease, GERD, HLP, Gout, HTN presenting with illness for the last 3-4 days. Patient reports persistent shortness of breath as well as cough productive for yellow/green and occasionally blood tinged sputum. She reports chest tightness and discomfort with deep breaths as well as wheezing. She has been febrile at home with chills, malaise and poor oral intake. Also with headache. She denies chest pain, palpitations, abdominal pain, nausea, vomiting, diarrhea or constipation. Denies sore throat, loss of taste or smell. No additional complaints at this time. Upon arrival to the ER patient febrile at 38.2, hypoxic at 85% on room air. CXR obtained in the ER suggestive of RLL process, possible PNA ER Course: Tylenol, Albuterol, Ceftriaxone 2gm, Solumedrol 125mg Doxycycline ordered Principal Diagnosis Pneumonia, acute on chronic respiratory failure with hypoxia, COPD exacerbation Discharge Exam Vitals reviewed Gen: AAOx3, NAD HEENT: Anicteric sclerae, EOMI CV: RRR no mgr nl S1S2 Pulm: Mild crackles at right base, unlabored breathing, otherwise clear Abd: +BS soft NT ND no masses or hernias Ext: No edema, 2+ DP pulses Skin: No rashes, warm/dry Neuro: Full strength throughout Discharge Data Allergies Allergy/AdvReac Type Severity Reaction Status Date / Time pecan nut Allergy Intermediate TONGUE Verified 01/08/22 20:17 SWELLS Sulfa (Sulfonamide AdvReac Mild YEAST Verified 01/08/22 20:17 Antibiotics) INFECTION Consultations 01/08/22 20:07 ED Decision to Admit Stat Hospital Course (1) Right lower lobe pneumonia: 76yo female with history of COPD, restrictive lung disease, HTN, HLP, CHF presenting with 3-4 days of productive cough, SOB as well as fever/chills/malaise. Patient with sick contacts - family members ill. No known Covid-19 exposure. With acute respiratory failure with hypoxia -CXR with airspace opacity in the RLL. -Patient uses 2L at night and with naps but normally does not require this continuously. She does endorse chronic issues with exertional dyspnea --Patient most likely with CAP, no recent hospitalizations. CURB 65 = 1 (low risk), Class III (low risk) by PSI/Port -BCx remain NGTD -Received ceftriaxone 2gm IV daily and Doxycycline 100 mg BID; will finish her course with oral cefdinir and doxycycline-would treat x 7 days total (01/14 is the last day) -Mucinex, Flutter valve, incentive spirometry were all employed and she will continue these at home -Tylenol PRN -Supplemental O2 was provided and she was weaned to room air prior to discharge. She had a two-step walk test and her lowest pulse ox was 88% with exertion and therefore did not qualify for portable oxygen. She will remain on her 2 L nasal cannula at bedtime and with naps Should have a follow-up chest x-ray to ensure resolution of pneumonia in 4 to 6 weeks as an outpatient (2) Sepsis: Patient met sepsis criteria with fever and elevated WBC of 13.27 with neutrophil predominance and elevated bands. Hypoxic on arrival at 85% on room air which improved with 3L supplemental O2 by NC. - Source pneumonia - Resolved fever and leukocytosis Treating pneumonia as above (3) COPD (chronic obstructive pulmonary disease): Patient with restrictive lung disease secondary to morbid obesity as well as obstructive lung disease. She had diffuse end-expiratory wheezing on admission and she received Solumedrol 125mg IV in the ER -Received DuoNeb q 4 hours scheduled and albuterol as needed and she can continue this at home as needed -Mucinex, flutter valve, incentive spirometry -Supplemental O2 as needed -Converted to prednisone 40 mg daily and finish out a burst of this for 3 more days at home -Continue Singulair 10mg HS -Continue home Symbicort BID (4) Atrial fibrillation: Paroxysmal. Rate controlled. Anticoagulated on Rivaroxaban 20mg HS -Continue Rivaroxaban -Continue Flecainide -Continue Metoprolol at home dose-previous attempts at reducing dose for mild bradycardia resulted in acute heart failure as per review of cardiology notes- continue home dose of 100 mg daily (5) Hypertension: Blood pressure controlled to mildly elevated but could be secondary to steroids -Continue Amlodipine 5mg po daily -Continue metoprolol Follow as an outpatient (6) Hypothyroid: Chronic. Stable. TSH within normal limits at 1.7 in August 2021 -Continue Synthroid (7) Type 2 diabetes mellitus: Diet controlled. HgbA1C on 09/08/21 = 6 -Monitor (8) Hyperlipemia: Chronic. Stable -Continue Atorvastatin (9) CHF (congestive heart failure): Chronic HFpEF Patient denies orthopnea, weight gain. Has had some mild swelling in her right foot. She reports this is chronic since her knee surgery. Continue Lasix 20 mg daily, metoprolol (10) GERD (gastroesophageal reflux disease): Chronic. Patient reports occasional hoarseness as well as occasional esophageal dysphagia. No odynophagia. No oral lesions. -Continue Protonix -Consider referral for outpatient EGD Plan Disposition-stable for discharge to home Total Time Total Time Spent Total Time Spent (In Minutes): 35 minutes Discharge Plan Discharge Items Patient Disposition: Home - Self-Care Reason For Visit: RLL PNA Discharge Diagnosis: Pneumonia, acute on chronic respiratory failure with hypoxia Condition on Discharge: Fair Activity: As commented below Bathing: No limitations Exercise/Sports: Gradually increase as tolerated Non-emergency contact: Primary Care Provider Call non-emergency contact if: you have any medication questions and your symptoms worsen Follow-up/Referrals: Jese Calle MD [Primary Care Provider] - (Follow up within 1-2 weeks) Diet: Heart Healthy Addtl Attending Provider Instructions: Please finish out 3 more days of the two different antibiotics as well as the prednisone. Your PCP should order you a chest xray in 4-6 weeks to ensure resolution of your pneumonia. Pending Studies at Discharge: No Stand-Alone Forms: My [facility] Medications and DC Order Prescriptions: New doxycycline hyclate 100 mg Capsule 100 mg PO BID Qty: 6 0RF prednisone 20 mg Tablet 40 mg PO DAILY Qty: 6 0RF guaifenesin [Mucinex] 600 mg Tablet Extended Release 12hr 1,200 mg PO Q12 Qty: 30 0RF Rx Instructions: OTC cefdinir 300 mg capsule 300 mg PO BID Qty: 6 0RF Continued (DME) nebulizer accessories Misc See Rx Instructions .ROUTE .MEDSUPPLY Qty: 1 0RF Rx Instructions: NEBULIZER TUBING. (DME) nebulizers Misc See Rx Instructions .ROUTE .MEDSUPPLY Qty: 1 0RF Rx Instructions: Nebulizer and nebulizer set up. DX: J44.9 (DME) compression socks, x-large Misc See Rx Instructions .ROUTE .MEDSUPPLY Qty: 2 0RF Rx Instructions: SIZE X-LARGE WITHOUT TOES R60.9 I87.2 (DME) miscellaneous [facility] supply [facility] See Rx Instructions .ROUTE .MEDSUPPLY Qty: 1 0RF Rx Instructions: OXYGEN TUBING J45.909 J98.4 G47.34 (DME) nebulizer accessories [facility] See Rx Instructions .ROUTE .MEDSUPPLY Qty: 1 0RF Rx Instructions: NEBULIZER TUBING R06.00 J98.4 J45.909 gabapentin 300 mg capsule 300 mg PO BID Qty: 270 3RF atorvastatin 20 mg tablet 20 mg PO QPM Qty: 90 3RF pantoprazole 40 mg tablet,delayed release (DR/EC) 40 mg PO QAM Qty: 90 3RF flecainide 100 mg tablet 100 mg PO Q12H Qty: 180 3RF montelukast 10 mg tablet 10 mg PO HS Qty: 90 3RF amoxicillin 500 mg capsule See Rx Instructions .ROUTE .COMPLEX Qty: 4 4RF Dose Instruction: TAKE ALL 4 CAPS ONE HOUR PRIOR TO DENTAL PROCEDURE Rx Instructions: TAKE ALL 4 CAPS ONE HOUR PRIOR TO DENTAL PROCEDURE cimetidine 400 mg tablet 400 mg PO HS Qty: 90 3RF furosemide 20 mg tablet 20 mg PO QAM Qty: 90 3RF Rx Instructions: TAKE 1 TABLET BY MOUTH EVERY MORNING levalbuterol tartrate [Xopenex HFA] 45 mcg/actuation HFA aerosol inhaler 2 inh INHALATION Q4H PRN (Reason: sob) Qty: 15 3RF nystatin 100,000 unit/gram cream 1 applic TOP TID PRN (Reason: Skin Irritation) Qty: 30 0RF Rx Instructions: alternate application with powder levothyroxine 75 mcg tablet 75 mcg PO QAM Qty: 90 3RF budesonide-formoterol [Symbicort] 160-4.5 mcg/actuation HFA aerosol inhaler 2 puff inhalation BID Qty: 3 1RF Rx Instructions: Has to be Brand Necessary Symbicort rivaroxaban 20 mg tablet 20 mg PO QPM Qty: 90 1RF amlodipine 5 mg tablet 5 mg PO QAM Qty: 90 3RF metoprolol succinate 100 mg capsule,sprinkle,ER 24hr 100 mg PO QAM Qty: 90 3RF ipratropium bromide 0.02 % solution 2.5 ml INH Q6H PRN (Reason: shortness of breath or wheezing) Qty: 150 3RF calcium carbonate-vitamin D3 500 mg(1,250mg) -200 unit tablet 1 tab PO PM cyclosporine [Restasis] 0.05 % dropperette 1 drops ophthalmic (eye) BID docusate sodium 100 mg capsule 100 mg PO QAM PRN (Reason: Constipation) latanoprost 0.005 % drops 1 drops OP HS levalbuterol HCl 1.25 mg/3 mL solution for nebulization 1.25 mg inhalation Q4H PRN (Reason: Shortness Of Breath Or Wheezing) Discharge Orders: Discharge Order (Routine); Ordered 01/12/22 Ordered By: Ananya Shell/Other Patient Handouts: What Is Pneumonia? Admission Data Admit Date/Time: 01/08/22 20:37 Attending Provider: Ananya Fair Admit Provider: Marycarmen Rhodes Primary Care Provider: Jese Calle Other Providers: Marycarmen Rhodes Other Interventions: Discharge Summary Assessment (RN) Last Done: 01/12/22 16:20 Coding Level of Care Code D/C DAY MANAGEMENT >30 MINS Diagnoses Right lower lobe pneumonia J18.9 Sepsis A41.9 COPD (chronic obstructive pulmonary disease) J44.9 Atrial fibrillation I48.0 Atrial fibrillation type: paroxysmal Hypertension I10 Hypertension type: primary hypertension Hypothyroid E03.9 Type 2 diabetes mellitus E11.9 Hyperlipemia E78.5 CHF (congestive heart failure) I50.9 GERD (gastroesophageal reflux disease) K21.9
== END 2022-01-12 17:43 | disposition home or self-care (01) ==
LOC: ED 17:23 → INTOOBSV 20:37 → 3E 20:37 → SUATTDRO 20:37 → 3E 22:26
DX: K21.9 Gastro-esophageal reflux disease without esophagitis; I48.91 Unspecified atrial fibrillation; I11.0 Hypertensive heart disease with heart failure; E03.9 Hypothyroidism, unspecified; Z88.2 Allergy status to sulfonamides; A41.9 Sepsis, unspecified organism; E66.01 Morbid (severe) obesity due to excess calories; E78.5 Hyperlipidemia, unspecified; I50.9 Heart failure, unspecified; J96.21 Acute and chronic respiratory failure with hypoxia; Z68.42 Body mass index [BMI] 45.0-49.9, adult; J18.9 Pneumonia, unspecified organism; J44.9 Chronic obstructive pulmonary disease, unspecified; Z79.01 Long term (current) use of anticoagulants; E11.9 Type 2 diabetes mellitus without complications; Z99.81 Dependence on supplemental oxygen

== ENCOUNTER 2023-06-22 19:16 | Inpatient (IN) ==
--- NOTE | 2023-06-22 19:40 | Emergency Department Note ---
Impression & Plan Shortness of breath, Elevated brain natriuretic peptide (BNP) level, Rhinovirus infection ED Provider Note HISTORY OF PRESENT ILLNESS: Patient is a 77-year-old female presenting with shortness of breath. Patient reports for the last 48 hours she has been having progressively worsening shortness of breath. She wears supplemental oxygen at nighttime and intermittently as needed throughout the day. However, in the last 24 hours has been wearing her oxygen almost continuously. She reports some left-sided chest pain yesterday. She is on Xarelto for history of A-fib. Denies any DVT or PE history. Denies any history of cardiac stents. Reports she had a noted fever of 101 yesterday on her thermometer, but repeat temperature was 98. She has had a cough productive of a clear white sputum. Has had a sick contact exposure in the form of her brother. Denies any recent antibiotic or steroid use. She has been using her albuterol inhalers at home with little relief in symptoms. Denies any significant lower extremity edema. Denies any abdominal pain, nausea or vomiting. On EMS arrival, the patient was noted to be 88% on room air. She is given a DuoNeb and albuterol treatment and route. ROS: as above PHYSICAL EXAM: Constitutional: Patient appears in no acute distress. HENT: Head: Normocephalic and atraumatic. Eyes: EOMI, PERRL Mouth/Throat: Mucous membranes moist. Neck: Trachea midline. Neck supple. Cardiovascular: Tachycardic with irregularly irregular rhythm. No murmurs, rubs or gallops. Intact distal pulses. Pulmonary/Chest: Increased work of breathing. Patient is tachypneic. She has coarse breath sounds bilaterally. Conversationally dyspneic. Abdominal: Abdomen soft, no tenderness, rebound or guarding. Musculoskeletal: No edema, tenderness or deformity noted. Skin: Warm and dry. No rash, erythema, pallor or cyanosis Psychiatric: Appropriate mood and affect for situation. Neurological: Alert and keenly responsive. CN II-XII grossly intact, moving all extremities equally and fully. MDM: - Vitals signs showed fever and tachycardia - History obtained via patient. Patient presents with shortness of breath. Patient reports in the last 48 hours she has had progressively worsening shortness of breath.. A fever yesterday. Has had a productive cough. Reports some left-sided chest pain. She was hypoxic on EMS arrival. - Chronic conditions affecting care: Afib; CHF; HTN; COPD; HLD; hypothyroidism - Differential diagnoses include, but are not limited to: Congestive heart failure; acute coronary syndrome; COPD/asthma exacerbation; pulmonary edema; pulmonary embolism; pneumonia; pneumothorax; viral syndrome - Order placed for continuous cardiac monitoring. At this time, monitor showed rate of 100 bpm with irregular rhythm, per my interpretation. - External medical records reviewed. EMS run sheet reviewed. Patient was noted to be hypoxic on room air on their arrival to 88%. She started on supplemental oxygen and given a DuoNeb and albuterol treatment and route. - EKG interpreted by myself showed atrial fibrillation. Rate tachycardic at 133 bpm. QT 348. No acute ischemic changes. Noted to have a right bundle branch block. - Laboratory workup interpreted by myself showed leukocytosis (WBC 14.06) with left shift; normal electrolytes; normal troponin; elevated BNP(220); normal procalcitonin - Blood cultures obtained - CXR negative for pneumonia, per my interpretation - Viral respiratory panel positive for rhinovirus/enterovirus - VBG grossly unremarkable - noted to have slight hypercarbia. - Patient given 1g IV tylenol with improvement in HR. Given 40 mg IV lasix. - CXR negative for pneumonia, per my interpretation. - Discussion was had with career development facilitator about patient's case and need for admission - Hospitalist consulted for admission - [facility] for [facility] evaluation and management. ASSESSMENT AND PLAN: Diagnosis: shortness of breath; rhinovirus infection; elevated BNP Plan: admit Past Med/Surg History Medical History (Updated 06/22/23 @ 23:49 by Molly Brown MD) History of skin ulcer of lower extremity lt leg, currently has healing wounds/ulcers, being treated in [facility] wound care Morbid obesity with BMI of 45.0-49.9, adult Left knee DJD History of intestinal obstruction History of gout Osteoporosis GERD (gastroesophageal reflux disease) Hoarseness of voice Hypothyroidism Prediabetes diet controlled-"i'm not very good at following it" History of basal cell carcinoma Glaucoma PVD (peripheral vascular disease) Osteoarthritis HLD (hyperlipidemia) On home oxygen therapy 2 lpm qHS and prn Peripheral neuropathy Urinary incontinence Sacral fracture As seen on MRI 01/25/2020, occult right hemisacrum fracture Anticoagulant long-term use xarelto daily Nocturnal hypoxemia CHF (congestive heart failure) Hypertension COPD (chronic obstructive pulmonary disease) Asthma inhaler daily/prn, nebulizer prn Afib on xarelto; follows with Dr. Zimmer Surgical History (Updated 04/07/23 @ 13:33 by Morena Dominguez MD, FACOG) Cataract extraction status, right eye Hx of cataract extraction LT. Status post sclerotherapy of varicose veins (~11/06/20) @ [facility] History of tooth extraction History of intestinal surgery S/P thyroid biopsy History of basal cell carcinoma (BCC) excision Status post endovenous radiofrequency ablation of saphenous vein History of endovenous ablation of incompetent vein radiofrequency. Type of vein not specified in CCD History of total knee arthroplasty Rt History of hernia repair History of decompression of median nerve at carpal tunnel (neuroplasty) History of total abdominal hysterectomy bso History of laparoscopic cholecystectomy Family History Father Skin cancer Pulmonary embolism Father Gout Other No family history of adverse response to anesthesia Denies family history of Ovarian cancer Prostate cancer Myocardial infarction Breast cancer Lung cancer Colorectal cancer Social History Smoking Status: Never smoker Second Hand Exposure: No; Do You Dip or Chew Tobacco: No; Hx Alcohol Use: No Hx Substance Use: No Preferred Language: [place] Citizen Communication Ability: Effective Visual Impairment: Limited Hearing Ability: Normal Supervisory Examiner Required: No Beliefs That Will Affect Care: None marital status: Current Living Situation: Alone current occupational status: retired 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 ONE CHILD IN [place]. AND ANOTHER LIVES ABOUT AN HOUR AND 1/2 AWAY FROM . Feels Safe at Home: Yes Safety Concerns Comment: Considered Life Alert but has her phone with her. Childhood Exposure to Second-Hand Smoke: No Diet: low salt caffeine: Yes (1-2 cups in am per day.) during the past year weight has: remained stable Dental Care, Regularly: Yes Physical Activity Frequency: Does not Exercise Seatbelt Use: always Sunscreen Use: Yes Do you think of yourself as: straight/heterosexual Gender Identity: Female Assistive Devices: Cane, Denture - Upper, Denture - Lower, Glasses, Oxygen - at Night, Raised Toilet Seat, Walker and Other Allergies Allergies Allergy/AdvReac Type Severity Reaction Status Date / Time pecan nut Allergy Severe TONGUE Verified 06/22/23 20:16 SWELLS house dust Allergy Intermediate SNEEZING, Verified 06/22/23 20:16 CONGESTION Sulfa (Sulfonamide AdvReac Intermediate YEAST Verified 06/22/23 20:16 Antibiotics) INFECTION Home Meds Home Medications Medication Instructions Recorded Confirmed calcium carbonate 500 mg-vitamin 1 tab PO QPM 01/14/19 06/22/23 D3 5 mcg (200 unit) tablet cyclosporine 0.05 % eye drops in a 1 drops ophthalmic (eye) BID 01/14/19 06/22/23 dropperette (Restasis) docusate sodium 100 mg capsule 100 mg PO QAM PRN Constipation 01/14/19 06/22/23 latanoprost 0.005 % eye drops 1 drops ophthalmic (eye) HS 01/14/19 06/22/23 acetaminophen 500 mg tablet 1,000 mg PO Q6H PRN Pain 09/15/22 06/22/23 (Acetaminophen Extra Strength) ascorbic acid (vitamin C) 500 mg 500 mg PO QPM 09/15/22 06/22/23 tablet (Vitamin C) flecainide 100 mg tablet 100 mg PO BID 09/15/22 06/22/23 guaifenesin 600 mg tablet, 600 mg PO BID 09/15/22 06/22/23 extended release 12 hr (Mucinex) atorvastatin 20 mg tablet 20 mg PO QAM 06/22/23 06/22/23 Previous Rx's Medication Instructions Recorded nebulizer accessories #1 ea 03/26/20 nebulizers #1 ea 09/09/20 compression socks, x-large #2 ea 11/07/20 miscellaneous medical supply #1 ea 11/07/20 nebulizer accessories #1 ea 11/07/20 Shower Chair #1 ea 01/22/22 nebulizer accessories #1 ea 01/27/22 furosemide 20 mg tablet 20 mg PO QAM #90 tabs 08/17/22 levalbuterol HCl 1.25 mg/3 mL 1.25 mg (3 mL) inhalation Q4H PRN 10/08/22 solution for nebulization Shortness Of Breath Or Wheezing #1,620 mL amlodipine 5 mg tablet 5 mg PO QAM #90 tabs 12/14/22 gabapentin 300 mg capsule 300 mg PO BID #180 caps 02/02/23 metoprolol succinate 100 mg 100 mg PO QAM #90 ea 02/03/23 capsule sprinkle, ext. release 24 hr ipratropium bromide 0.02 % 2.5 ml inhalation Q6H PRN 03/04/23 solution for inhalation shortness of breath or wheezing #1,620 mL levothyroxine 75 mcg tablet 75 mcg PO QAM #90 tabs 03/04/23 rivaroxaban 20 mg tablet 20 mg PO QPM #90 tabs 03/04/23 nystatin 100,000 unit/gram topical 1 applic topical TID PRN Skin 03/16/23 cream Irritation #30 grams montelukast 10 mg tablet 10 mg PO HS #90 tabs 04/15/23 Results & Data (ED) Vital Signs Vital Signs - 24 hr 06/22/23 19:32 06/22/23 19:34 06/22/23 19:52 Temperature 37.8 C H Temperature Source Oral Pulse Rate 143 H 132 H 135 H Pulse Rate from SpO2 Sensor 126 H Pulse Rhythm Respiratory Rate 25 H 22 Respiratory Effort / Characteristics Short of Breath SOB on Exertion Respiratory Depth Respiratory Pattern Tachypnea Blood Pressure 152/86 H Blood Pressure Mean 108 Pulse Oximetry 90 95 Oxygen Delivery Method Room Air Oxygen Flow Rate Sepsis Recent Fever Within 48 Hours No Sepsis New/Unexplained Change in Mental Status No Sepsis Action Taken by Nursing Physician Notified 06/22/23 19:52 06/22/23 19:58 06/22/23 20:00 Temperature Temperature Source Pulse Rate 126 H 127 H Pulse Rate from SpO2 Sensor 123 H Pulse Rhythm Irregular Respiratory Rate 22 22 Respiratory Effort / Characteristics Spontaneous Short of Breath SOB on Exertion Respiratory Depth Normal Respiratory Pattern Blood Pressure Blood Pressure Mean Pulse Oximetry 95 96 Oxygen Delivery Method Room Air Nasal Cannula Oxygen Flow Rate 2 Sepsis Recent Fever Within 48 Hours Sepsis New/Unexplained Change in Mental Status Sepsis Action Taken by Nursing 06/22/23 20:40 06/22/23 21:30 06/22/23 22:00 Temperature Temperature Source Pulse Rate 122 H 106 H 100 H Pulse Rate from SpO2 Sensor 129 H 101 H 99 H Pulse Rhythm Respiratory Rate 22 18 23 Respiratory Effort / Characteristics Respiratory Depth Respiratory Pattern Blood Pressure 133/104 H 124/81 119/61 Blood Pressure Mean 113 95 80 Pulse Oximetry 96 97 96 Oxygen Delivery Method Oxygen Flow Rate Sepsis Recent Fever Within 48 Hours Sepsis New/Unexplained Change in Mental Status Sepsis Action Taken by Nursing 06/22/23 22:24 Temperature Temperature Source Pulse Rate Pulse Rate from SpO2 Sensor Pulse Rhythm Respiratory Rate Respiratory Effort / Characteristics Respiratory Depth Respiratory Pattern Blood Pressure Blood Pressure Mean Pulse Oximetry Oxygen Delivery Method Nasal Cannula Oxygen Flow Rate 1 Sepsis Recent Fever Within 48 Hours Sepsis New/Unexplained Change in Mental Status Sepsis Action Taken by Nursing Laboratory Data 06/22/23 19:47 06/22/23 19:47 Lab Results 06/22/23 06/22/23 06/22/23 Range/Units 19:38 19:38 19:47 WBC 14.06 H (4.8-10.8) K/ul RBC 4.66 (4.20-5.40) M/uL Hgb 13.2 (12.0-16.0) g/dl Hct 41.3 (37.0-47.0) % MCV 88.6 (80.0-100.0) fL MCH 28.3 (25.0-34.0) pg MCHC 32.0 (32.0-36.0) g/dL RDW Std Deviation 45.6 (36.4-46.3) fL RDW Coeff of Sonal 14.0 (11.5-14.5) % Plt Count 209 (130-400) K/uL MPV 10.3 (9.4-12.4) fL Immature Gran % (Auto) 0.5 % Neut % (Auto) 82.9 % Lymph % (Auto) 9.5 % [place] % (Auto) 6.3 % Eos % (Auto) 0.4 % Baso % (Auto) 0.4 % Neut # (Auto) 11.64 H (1.40-6.50) K/uL Lymph # (Auto) 1.34 (1.20-3.40) K/uL [place] # (Auto) 0.89 H (0.11-0.59) K/uL Eos # (Auto) 0.06 (0.00-0.50) K/uL Baso # (Auto) 0.06 (0.00-0.20) K/uL Immature Gran # (Auto) 0.07 (0.01-0.20) K/uL PT 11.7 (9.0-12.0) Seconds INR 1.1 (0.9-1.1) VBG pH (7.36-7.41) VBG pCO2 (38-50) mmHg VBG pO2 mmHg VBG HCO3 mmol/L VBG O2 Saturation % VBG Base Excess mEq/L Sodium 137 (136-145) mmol/L Potassium 3.7 (3.5-5.1) mmol/L Chloride 98 (98-107) mmol/L Carbon Dioxide 28 (21-32) mmol/L Anion Gap 11 (3-11) BUN 13 (6-23) mg/dl Creatinine 0.83 (0.6-1.2) mg/dl Est Cr Clr Drug Dosing 71.9 ml/min Est GFR ( Amer) 79.9 ml/min Est GFR (Non-Af Amer) 69.0 ml/min BUN/Creatinine Ratio 15.7 (10-20) Glucose 142 H (70-99(Fasting)) mg/dl Lactate (0.4-2.0) mmol/L Calcium 9.3 (8.6-10.3) mg/dl Magnesium 1.8 (1.7-2.4) mg/dl Total Bilirubin 0.7 (0.2-1.0) mg/dl AST 16 (13-39) U/L ALT 10 (7-52) U/L Alkaline Phosphatase 102 (34-104) U/L Troponin I High Sens 7.8 (0-14) pg/ml B-Natriuretic Peptide 220 H (0-100) pg/ml Total Protein 7.5 (6.0-8.3) gm/dl Albumin 3.9 (3.4-5.0) gm/dl Globulin 3.6 (2.5-4.0) gm/dl Albumin/Globulin Ratio 1.1 (0.9-2) Procalcitonin < 0.05 (0-0.5) ng/ml Adenovirus (PCR) Not Detected (NotDetected) B. pertussis DNA (PCR) Not Detected (NotDetected) B.parapertussis DNA PCR Not Detected (NotDetected) C. pneumoniae DNA (PCR) Not Detected (NotDetected) Coronavirus OC43 (PCR) Not Detected (NotDetected) Coronavirus HKU1 (PCR) Not Detected (NotDetected) Coronavirus 229E (PCR) Not Detected (NotDetected) SARS-CoV-2 (PCR) NEGATIVE Not Detected (Negative) Coronavirus NL63 (PCR) Not Detected (NotDetected) Human Metapneumovir PCR Not Detected (NotDetected) Influenza Type A (PCR) Not Detected (NotDetected) Influenza Type B (PCR) Not Detected (NotDetected) M. pneumoniae (PCR) Not Detected (NotDetected) Parainfluenza 1 (PCR) Not Detected (NotDetected) Parainfluenza 2 (PCR) Not Detected (NotDetected) Parainfluenza 3 (PCR) Not Detected (NotDetected) Parainfluenza 4 (PCR) Not Detected (NotDetected) RSV (PCR) Not Detected (NotDetected) Entero/Rhino (PCR) DETECTED A* (NotDetected) 06/22/23 06/22/23 Range/Units 20:44 21:24 WBC (4.8-10.8) K/ul RBC (4.20-5.40) M/uL Hgb (12.0-16.0) g/dl Hct (37.0-47.0) % MCV (80.0-100.0) fL MCH (25.0-34.0) pg MCHC (32.0-36.0) g/dL RDW Std Deviation (36.4-46.3) fL RDW Coeff of Sonal (11.5-14.5) % Plt Count (130-400) K/uL MPV (9.4-12.4) fL Immature Gran % (Auto) % Neut % (Auto) % Lymph % (Auto) % [place] % (Auto) % Eos % (Auto) % Baso % (Auto) % Neut # (Auto) (1.40-6.50) K/uL Lymph # (Auto) (1.20-3.40) K/uL [place] # (Auto) (0.11-0.59) K/uL Eos # (Auto) (0.00-0.50) K/uL Baso # (Auto) (0.00-0.20) K/uL Immature Gran # (Auto) (0.01-0.20) K/uL PT (9.0-12.0) Seconds INR (0.9-1.1) VBG pH 7.37 (7.36-7.41) VBG pCO2 57 H (38-50) mmHg VBG pO2 34 mmHg VBG HCO3 33 mmol/L VBG O2 Saturation < 60.0 % VBG Base Excess 6.0 mEq/L Sodium (136-145) mmol/L Potassium (3.5-5.1) mmol/L Chloride (98-107) mmol/L Carbon Dioxide (21-32) mmol/L Anion Gap (3-11) BUN (6-23) mg/dl Creatinine (0.6-1.2) mg/dl Est Cr Clr Drug Dosing ml/min Est GFR ( Amer) ml/min Est GFR (Non-Af Amer) ml/min BUN/Creatinine Ratio (10-20) Glucose (70-99(Fasting)) mg/dl Lactate 1.1 (0.4-2.0) mmol/L Calcium (8.6-10.3) mg/dl Magnesium (1.7-2.4) mg/dl Total Bilirubin (0.2-1.0) mg/dl AST (13-39) U/L ALT (7-52) U/L Alkaline Phosphatase (34-104) U/L Troponin I High Sens (0-14) pg/ml B-Natriuretic Peptide (0-100) pg/ml Total Protein (6.0-8.3) gm/dl Albumin (3.4-5.0) gm/dl Globulin (2.5-4.0) gm/dl Albumin/Globulin Ratio (0.9-2) Procalcitonin (0-0.5) ng/ml Adenovirus (PCR) (NotDetected) B. pertussis DNA (PCR) (NotDetected) B.parapertussis DNA PCR (NotDetected) C. pneumoniae DNA (PCR) (NotDetected) Coronavirus OC43 (PCR) (NotDetected) Coronavirus HKU1 (PCR) (NotDetected) Coronavirus 229E (PCR) (NotDetected) SARS-CoV-2 (PCR) (Negative) Coronavirus NL63 (PCR) (NotDetected) Human Metapneumovir PCR (NotDetected) Influenza Type A (PCR) (NotDetected) Influenza Type B (PCR) (NotDetected) M. pneumoniae (PCR) (NotDetected) Parainfluenza 1 (PCR) (NotDetected) Parainfluenza 2 (PCR) (NotDetected) Parainfluenza 3 (PCR) (NotDetected) Parainfluenza 4 (PCR) (NotDetected) RSV (PCR) (NotDetected) Entero/Rhino (PCR) (NotDetected) Administered Medications Discontinued Medications Furosemide (Furosemide 40 Mg/4 Ml Vial) 40 mg IV ONE ONE Stop: 06/22/23 22:43 Last Admin: 06/22/23 23:21 Dose: 40 mg Documented By: [facility] Acetaminophen (Ofirmev) 1,000 mg in 100 mls @ 400 mls/hr IV NOW STA Stop: 06/22/23 20:33 Last Infusion: 06/22/23 20:53 Dose: Infused Documented By: [facility] Admin: 06/22/23 20:34 Dose: 400 mls/hr Documented By: [facility] Discharge Plan Visit Data Chief Complaint: Shortness of Breath/Dyspnea ED Provider: Molly Brown Discharge Problem: Shortness of breath, Elevated brain natriuretic peptide (BNP) level, Rhinovirus infection Forms Stand Alone Forms: [facility] Prescriptions Prescriptions: No Action (DME) nebulizer accessories Misc See Rx Instructions .ROUTE .MEDSUPPLY Qty: 1 0RF Rx Instructions: NEBULIZER TUBING. (DME) nebulizers Misc See Rx Instructions .ROUTE .MEDSUPPLY Qty: 1 0RF Rx Instructions: Nebulizer and nebulizer set up. DX: J44.9 (DME) compression socks, x-large Misc See Rx Instructions .ROUTE .MEDSUPPLY Qty: 2 0RF Rx Instructions: SIZE X-LARGE WITHOUT TOES R60.9 I87.2 (DME) miscellaneous medical supply Misc See Rx Instructions .ROUTE .MEDSUPPLY Qty: 1 0RF Rx Instructions: OXYGEN TUBING J45.909 J98.4 G47.34 (DME) nebulizer accessories Misc See Rx Instructions .ROUTE .MEDSUPPLY Qty: 1 0RF Rx Instructions: NEBULIZER TUBING R06.00 J98.4 J45.909 (DME) nebulizer accessories Kit See Rx Instructions .Route Qty: 1 0RF Rx Instructions: As directed furosemide 20 mg tablet 20 mg PO QAM Qty: 90 3RF Rx Instructions: TAKE 1 TABLET BY MOUTH EVERY MORNING levalbuterol HCl 1.25 mg/3 mL solution for nebulization 1.25 mg inhalation Q4H PRN (Reason: Shortness Of Breath Or Wheezing) Qty: 1620 1RF Rx Instructions: PER PT "USE 3-4 TIMES DAILY" amlodipine 5 mg tablet 5 mg PO QAM Qty: 90 3RF gabapentin 300 mg capsule 300 mg PO BID Qty: 180 3RF metoprolol succinate 100 mg capsule,sprinkle,ER 24hr 100 mg PO QAM Qty: 90 3RF nystatin 100,000 unit/gram cream 1 applic TOP TID PRN (Reason: Skin Irritation) Qty: 30 1RF Patient Comments: pt stated she only uses the cream Rx Instructions: alternate application with powder montelukast 10 mg tablet 10 mg PO HS Qty: 90 3RF levothyroxine 75 mcg tablet 75 mcg PO QAM Qty: 90 3RF ipratropium bromide 0.02 % solution 2.5 ml INH Q6H PRN (Reason: shortness of breath or wheezing) Qty: 1620 3RF Rx Instructions: PER PT "USE 3-4 TIMES DAILY rivaroxaban 20 mg tablet 20 mg PO QPM Qty: 90 3RF (DME) Shower Chair Misc See Rx Instructions .Route Qty: 1 0RF Rx Instructions: Bariatric shower chair calcium carbonate-vitamin D3 500 mg(1,250mg) -200 unit tablet 1 tab PO QPM Patient Comments: evening cyclosporine [Restasis] 0.05 % dropperette 1 drops ophthalmic (eye) BID docusate sodium 100 mg capsule 100 mg PO QAM PRN (Reason: Constipation) latanoprost 0.005 % drops 1 drops OP HS ascorbic acid (vitamin C) [Vitamin C] 500 mg Tablet 500 mg PO QPM Patient Comments: noon acetaminophen [Acetaminophen Extra Strength] 500 mg Tablet 1,000 mg PO Q6H PRN (Reason: Pain) flecainide 100 mg tablet 100 mg PO BID Rx Instructions: PER PT "ON HOLD PER MD". guaifenesin [Mucinex] 600 mg tablet extended release 12hr 600 mg PO BID Rx Instructions: OTC atorvastatin 20 mg tablet 20 mg PO QAM Patient Comments: around noon Referrals Referrals: Ronda Adamson CRNP [Primary Care Provider] -
[2023-06-22] MEDS ORDERED: ACETAMINOPHEN 1,000 MG/100 ML VIAL IV STA (20:19)
[2023-06-22 20:41] LABS: Basophils # (auto) 0.06 K/uL (0.00-0.20); Basophils % (auto) 0.4 %; Eosinophils # (auto) 0.06 K/uL (0.00-0.50); Eosinophils % (auto) 0.4 %; Hematocrit (blood only) 41.3 % (37.0-47.0); Hemoglobin 13.2 g/dl (12.0-16.0); Immature Granulocytes # (auto) 0.07 K/uL (0.01-0.20); Immature Granulocytes % (auto) 0.5 %; Lymphocytes # (auto) 1.34 K/uL (1.20-3.40); Lymphocytes % (auto) 9.5 %; Mean Corpuscular Hemoglobin 28.3 pg (25.0-34.0); Mean Corpuscular Volume 88.6 fL (80.0-100.0); Mean Platelet Volume 10.3 fL (9.4-12.4); Monocytes # (auto) 0.89 K/uL (0.11-0.59); Monocytes % (auto) 6.3 %; Neutrophils # (auto) 11.64 K/uL (1.40-6.50); Neutrophils % (auto) 82.9 %; Platelet Count 209 K/uL (130-400); RDW Standard Deviation 45.6 fL (36.4-46.3); Red Blood Count 4.66 M/uL (4.20-5.40); White Blood Count 14.06 K/ul (4.8-10.8)
[2023-06-22 20:56] LABS: HCO3 VBG 33 mmol/L; Oxygen Saturation VBG < 60.0 %; PCO2 VBG 57 mmHg (38-50); PO2 VBG 34 mmHg; pH VBG 7.37 (7.36-7.41)
[2023-06-22 21:07] LABS: INR 1.1 (0.9-1.1); Prothrombin Time 11.7 Seconds (9.0-12.0)
[2023-06-22 21:53] LABS: Troponin I High Sensitivity 7.8 pg/ml (0-14)
[2023-06-22 22:34] LABS: Albumin Level 3.9 gm/dl (3.4-5.0); Bilirubin,Total 0.7 mg/dl (0.2-1.0); Calcium 9.3 mg/dl (8.6-10.3); Magnesium 1.8 mg/dl (1.7-2.4); Potassium 3.7 mmol/L (3.5-5.1)
[2023-06-22 22:40] LABS: Albumin Globulin Ratio 1.1 (0.9-2); BUN Creatinine Ratio 15.7 (10-20); Creatinine Clr Calc Pharmacy 71.9 ml/min; Est GFR (African American) 79.9 ml/min; Globulin 3.6 gm/dl (2.5-4.0); Total Protein 7.5 gm/dl (6.0-8.3)
[2023-06-22] MEDS ORDERED: FUROSEMIDE 40 MG/4 ML VIAL IV ONE (22:42)
[2023-06-22 23:41] LABS: Adenovirus PCR Not Detected (NotDetected); Bordetella parapertussis PCR Not Detected (NotDetected); Bordetella pertussis PCR Not Detected (NotDetected); Chlamydia pneumoniae PCR Not Detected (NotDetected); Coronavirus 229E PCR Not Detected (NotDetected); Coronavirus CoV-2 (COVID19)PCR Not Detected (NotDetected); Coronavirus HKU1 PCR Not Detected (NotDetected); Coronavirus NL63 PCR Not Detected (NotDetected); Coronavirus OC43PCR Not Detected (NotDetected); Human Metapneumovirus PCR Not Detected (NotDetected); Influenza A PCR Not Detected (NotDetected); Influenza B PCR Not Detected (NotDetected); Mycoplasma pneumoniae PCR Not Detected (NotDetected); Parainfluenza Virus 1 PCR Not Detected (NotDetected); Parainfluenza Virus 2 PCR Not Detected (NotDetected); Parainfluenza Virus 3 PCR Not Detected (NotDetected); Parainfluenza Virus 4 PCR Not Detected (NotDetected); Respiratory Syncytial VirusPCR Not Detected (NotDetected)
[2023-06-22 23:46] LABS: Rhinovirus/Enterovirus PCR DETECTED (NotDetected)
[2023-06-23 00:30] LABS: Appearance Urine Cloudy (Clear); Bacteria Urine Automated Negative (Negative); Bilirubin Urine Negative (Negative); Blood Urine Negative (Negative); Cast Urine Automated 0 /lpf (0-5); Color Urine Yellow; Glucose Urine UA Negative (Negative); Ketones Urine Negative (Negative); Leukocyte Esterase Urine 1+ (Negative); Nitrite Urine Negative (Negative); Protein Urine Negative (Negative); RBC Urine Automated 0-4 /hpf (0-4); Specific Gravity Urine 1.007 (1.000-1.030); Urobilinogen Urine Negative (Negative); pH Urine 6.5 (4.5-7.5)
--- NOTE | 2023-06-23 01:28 | History & Physical Report ---
Date of Service June 23, 2023 Assessment & Plan (1) Acute on chronic respiratory failure with hypoxia: (2) Rhinovirus infection: (3) Shortness of breath: (4) COPD exacerbation: (5) Restrictive lung disease: (6) Autonomic neuropathy: (7) Atrial fibrillation: (8) Hyperlipemia: (9) Obstructive sleep apnea: (10) Anticoagulant long-term use: Plan: /Rhinovirus infection/restrictive lung disease- (11) CHF (congestive heart failure): Plan Acute on chronic respiratory failure with hypoxia/COPD exacerbation/CHF exacerbation/rhinovirus infection- DuoNebs 4 times daily, and every 2 hours as needed Azithromycin 500 mg IV every 24 hours Pulmicort Respules 0.5 mg inhaled twice daily Guaifenesin extended release 1200 mg p.o. every 12 hours Montelukast 10 mg p.o. at bedtime Nasal cannula oxygen, titrate to keep pulse ox around 94% Droplet precautions Atrial fibrillation/hypertension/CHF exacerbation- The patient will be admitted to telemetry for serial cardiac enzymes, serial EKG's, cardiac rhythm monitoring and a 2-D echocardiogram with Dopplers. Status post furosemide 40 mg IV in ED with good urine output Continue flecainide 100 mg p.o. twice daily, metoprolol succinate 100 mg p.o. every morning, Xarelto 20 mg p.o. every afternoon, and furosemide 20 mg p.o. every morning Hold amlodipine for blood pressure History of Present Illness Chief Complaint: The patient presents to the emergency department with complaint of shortness of breath over the last 48 hours, necessitating her to change her primarily nighttime use of oxygen to wearing it continuously over the past 24 hours Primary Care Provider: CALIXTO Pavon The patient is a 77-year-old female with a past medical history including mixed urinary incontinence, poor balance, autonomic neuropathy, asthma, atrial fibrillation, peripheral venous insufficiency, SSS, right bundle branch block, restrictive lung disease, cellulitis of left lower extremity with healed wound as of 03-22-2023, LISSETH, COPD, long-term anticoagulant use, hypertension, and CHF. The patient presents to the emergency department with symptoms as noted above. Workup in the emergency department included a BioFire test positive for rhinovirus/enterovirus. From the EMS en route, she received a DuoNeb and al buterol treatment. From the ED she received furosemide 40 mg IV, and Tylenol 1 g IV. She reportedly had a urine output of 1 L while in the ED Allergies Allergy/AdvReac Type Severity Reaction Status Date / Time pecan nut Allergy Severe TONGUE Verified 06/22/23 20:16 SWELLS house dust Allergy Intermediate SNEEZING, Verified 06/22/23 20:16 CONGESTION Sulfa (Sulfonamide AdvReac Intermediate YEAST Verified 06/22/23 20:16 Antibiotics) INFECTION Home Medications Medication Instructions Recorded Confirmed Type calcium carbonate 500 mg-vitamin 1 tab PO QPM 01/14/19 06/22/23 History D3 5 mcg (200 unit) tablet cyclosporine 0.05 % eye drops in a 1 drops ophthalmic (eye) BID 01/14/19 06/22/23 History dropperette (Restasis) docusate sodium 100 mg capsule 100 mg PO QAM PRN Constipation 01/14/19 06/22/23 History latanoprost 0.005 % eye drops 1 drops ophthalmic (eye) HS 01/14/19 06/22/23 History nebulizer accessories #1 ea 03/26/20 06/03/23 Rx nebulizers #1 ea 09/09/20 06/03/23 Rx compression socks, x-large #2 ea 11/07/20 06/03/23 Rx miscellaneous medical supply #1 ea 11/07/20 06/03/23 Rx nebulizer accessories #1 ea 11/07/20 06/03/23 Rx Shower Chair #1 ea 01/22/22 06/03/23 Rx nebulizer accessories #1 ea 01/27/22 06/03/23 Rx furosemide 20 mg tablet 20 mg PO QAM #90 tabs 08/17/22 06/22/23 Rx acetaminophen 500 mg tablet 1,000 mg PO Q6H PRN Pain 09/15/22 06/22/23 History (Acetaminophen Extra Strength) ascorbic acid (vitamin C) 500 mg 500 mg PO QPM 09/15/22 06/22/23 History tablet (Vitamin C) flecainide 100 mg tablet 100 mg PO BID 09/15/22 06/22/23 History guaifenesin 600 mg tablet, 600 mg PO BID 09/15/22 06/22/23 History extended release 12 hr (Mucinex) levalbuterol HCl 1.25 mg/3 mL 1.25 mg (3 mL) inhalation Q4H PRN 10/08/22 06/22/23 Rx solution for nebulization Shortness Of Breath Or Wheezing #1,620 mL amlodipine 5 mg tablet 5 mg PO QAM #90 tabs 12/14/22 06/22/23 Rx gabapentin 300 mg capsule 300 mg PO BID #180 caps 02/02/23 06/22/23 Rx metoprolol succinate 100 mg 100 mg PO QAM #90 ea 02/03/23 06/22/23 Rx capsule sprinkle, ext. release 24 hr ipratropium bromide 0.02 % 2.5 ml inhalation Q6H PRN 03/04/23 06/22/23 Rx solution for inhalation shortness of breath or wheezing #1,620 mL levothyroxine 75 mcg tablet 75 mcg PO QAM #90 tabs 03/04/23 06/22/23 Rx rivaroxaban 20 mg tablet 20 mg PO QPM #90 tabs 03/04/23 06/22/23 Rx nystatin 100,000 unit/gram topical 1 applic topical TID PRN Skin 03/16/23 06/22/23 Rx cream Irritation #30 grams montelukast 10 mg tablet 10 mg PO HS #90 tabs 04/15/23 06/22/23 Rx atorvastatin 20 mg tablet 20 mg PO QAM 06/22/23 06/22/23 History Past Med/Surg History Medical History (Updated 06/23/23 @ 06:27 by Zafar Crouch MD) History of skin ulcer of lower extremity lt leg, currently has healing wounds/ulcers, being treated in [facility] wound care Morbid obesity with BMI of 45.0-49.9, adult Left knee DJD History of intestinal obstruction History of gout Osteoporosis GERD (gastroesophageal reflux disease) Hoarseness of voice Hypothyroidism Prediabetes diet controlled-"i'm not very good at following it" History of basal cell carcinoma Glaucoma PVD (peripheral vascular disease) Osteoarthritis HLD (hyperlipidemia) On home oxygen therapy 2 lpm qHS and prn Peripheral neuropathy Urinary incontinence Sacral fracture As seen on MRI 01/25/2020, occult right hemisacrum fracture Anticoagulant long-term use xarelto daily Nocturnal hypoxemia CHF (congestive heart failure) Hypertension COPD (chronic obstructive pulmonary disease) Asthma inhaler daily/prn, nebulizer prn Afib on xarelto; follows with Dr. Zimmer Surgical History (Updated 04/07/23 @ 13:33 by Morena Dominguez MD, FACOG) Cataract extraction status, right eye Hx of cataract extraction LT. Status post sclerotherapy of varicose veins (~11/06/20) @ [facility] History of tooth extraction History of intestinal surgery S/P thyroid biopsy History of basal cell carcinoma (BCC) excision Status post endovenous radiofrequency ablation of saphenous vein History of endovenous ablation of incompetent vein radiofrequency. Type of vein not specified in CCD History of total knee arthroplasty Rt History of hernia repair History of decompression of median nerve at carpal tunnel (neuroplasty) History of total abdominal hysterectomy bso History of laparoscopic cholecystectomy Family History Father Skin cancer Pulmonary embolism Father Gout Other No family history of adverse response to anesthesia Denies family history of Ovarian cancer Prostate cancer Myocardial infarction Breast cancer Lung cancer Colorectal cancer Social History Smoking Status: Never smoker Second Hand Exposure: No; Do You Dip or Chew Tobacco: No; Hx Alcohol Use: No Hx Substance Use: No Preferred Language: [place]dean Communication Ability: Effective Visual Impairment: Limited Hearing Ability: Normal Violin Maker Hand Required: No Beliefs That Will Affect Care: None marital status: Current Living Situation: Alone current occupational status: retired 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 ONE CHILD IN [place]. AND ANOTHER LIVES ABOUT AN HOUR AND 1/2 AWAY FROM . Feels Safe at Home: Yes Safety Concerns Comment: Considered Life Alert but has her phone with her. Childhood Exposure to Second-Hand Smoke: No Diet: low salt caffeine: Yes (1-2 cups in am per day.) during the past year weight has: remained stable Dental Care, Regularly: Yes Physical Activity Frequency: Does not Exercise Seatbelt Use: always Sunscreen Use: Yes Do you think of yourself as: straight/heterosexual Gender Identity: Female Assistive Devices: Cane, Denture - Upper, Denture - Lower, Glasses, Oxygen - at Night, Raised Toilet Seat, Walker and Other Review of Systems Review of Systems: The patient denies palpitations, sore throat, fevers, chills, sweats, nausea, vomiting, diarrhea , constipation, abdominal pain, pelvic pain, blood in urine or stool, dysuria, urinary frequency or urgency, lightheadedness, dizziness, headache, loss of consciousness, rash, abnormal bruising or bleeding, focal weakness, numbness or tingling in arms or legs, generalized arthralgias or myalgias, back or neck pain, or night sweats. The review of systems is otherwise negative other than for that already noted above, and at least 10 systems have been reviewed. Physical Exam Physical Exam: The patient is awake, alert and oriented 3, looks fatigued, normocephalic and atraumatic, lying in bed and in no acute distress. HEENT--PERRL, EOMI, mucous membranes and oropharynx dry. Neck--supple. No JVD. No bruits. Thyroid normal, trachea midline, no adenopathy. Heart--normal S1 and S2. No murmurs, rubs or gallops. Lungs-coarse breath sounds with wheezes bilaterally. No respiratory distress, no accessory muscle use. Abdomen--normal bowel sounds and soft. Nontender. Nondistended. Morbidly obese Extremities--1+ bilateral pretibial pitting edema Dermatologic--normal skin turgor, normal color, no abnormal lymph nodes, no rash. Neurologic--cranial nerves II through XII grossly intact. Rheumatologic--normal range of motion. Psychiatric--normal affect. Results & Data Results & Data Vital Signs (Past 12 Hours) Vital Signs Temp Pulse Pulse Resp BP BP Pulse Ox 06/23/23 01:09 104 H 24 104/68 96 06/23/23 00:00 98 H 20 122/73 95 06/22/23 23:36 99 H 06/22/23 23:30 93 H 19 122/85 94 06/22/23 23:00 90 21 123/75 95 06/22/23 22:30 92 H 18 121/63 96 06/22/23 22:24 06/22/23 22:00 100 H 23 119/61 96 06/22/23 21:30 106 H 18 124/81 97 06/22/23 20:40 122 H 22 133/104 H 96 06/22/23 20:00 127 H 22 96 06/22/23 19:58 06/22/23 19:52 126 H 22 95 06/22/23 19:52 37.8 C H 135 H 22 152/86 H 95 06/22/23 19:34 132 H 25 H 90 06/22/23 19:32 143 H O2 Del Method O2 Flow Rate 06/23/23 01:09 Nasal Cannula 2 06/23/23 00:00 06/22/23 23:36 06/22/23 23:30 06/22/23 23:00 06/22/23 22:30 06/22/23 22:24 Nasal Cannula 1 06/22/23 22:00 06/22/23 21:30 06/22/23 20:40 06/22/23 20:00 06/22/23 19:58 Nasal Cannula 2 06/22/23 19:52 Room Air 06/22/23 19:52 Room Air 06/22/23 19:34 06/22/23 19:32 Laboratory Results Laboratory Results WBC 10.32 K/ul (4.8-10.8) 06/23/23 05:39 RBC 4.40 M/uL (4.20-5.40) 06/23/23 05:39 Hgb 12.5 g/dl (12.0-16.0) 06/23/23 05:39 Hct 39.2 % (37.0-47.0) 06/23/23 05:39 MCV 89.1 fL (80.0-100.0) 06/23/23 05:39 MCH 28.4 pg (25.0-34.0) 06/23/23 05:39 MCHC 31.9 g/dL (32.0-36.0) L 06/23/23 05:39 RDW Std Deviation 46.3 fL (36.4-46.3) 06/23/23 05:39 RDW Coeff of Sonal 14.2 % (11.5-14.5) 06/23/23 05:39 Plt Count 210 K/uL (130-400) 06/23/23 05:39 MPV 9.9 fL (9.4-12.4) 06/23/23 05:39 Immature Gran % (Auto) 0.5 % 06/23/23 05:39 Neut % (Auto) 78.8 % 06/23/23 05:39 Lymph % (Auto) 10.1 % 06/23/23 05:39 [place] % (Auto) 8.4 % 06/23/23 05:39 Eos % (Auto) 1.8 % 06/23/23 05:39 Baso % (Auto) 0.4 % 06/23/23 05:39 Neut # (Auto) 8.13 K/uL (1.40-6.50) H 06/23/23 05:39 Lymph # (Auto) 1.04 K/uL (1.20-3.40) L 06/23/23 05:39 [place] # (Auto) 0.87 K/uL (0.11-0.59) H 06/23/23 05:39 Eos # (Auto) 0.19 K/uL (0.00-0.50) 06/23/23 05:39 Baso # (Auto) 0.04 K/uL (0.00-0.20) 06/23/23 05:39 Immature Gran # (Auto) 0.05 K/uL (0.01-0.20) 06/23/23 05:39 PT 11.7 Seconds (9.0-12.0) 06/22/23 19:47 INR 1.1 (0.9-1.1) 06/22/23 19:47 VBG pH 7.37 (7.36-7.41) 06/22/23 20:44 VBG pCO2 57 mmHg (38-50) H 06/22/23 20:44 VBG pO2 34 mmHg 06/22/23 20:44 VBG HCO3 33 mmol/L 06/22/23 20:44 VBG O2 Saturation < 60.0 % 06/22/23 20:44 VBG Base Excess 6.0 mEq/L 06/22/23 20:44 Sodium 137 mmol/L (136-145) 06/22/23 19:47 Potassium 3.7 mmol/L (3.5-5.1) 06/22/23 19:47 Chloride 98 mmol/L (98-107) 06/22/23 19:47 Carbon Dioxide 28 mmol/L (21-32) 06/22/23 19:47 Anion Gap 11 (3-11) 06/22/23 19:47 BUN 13 mg/dl (6-23) 06/22/23 19:47 Creatinine 0.83 mg/dl (0.6-1.2) 06/22/23 19:47 Est Cr Clr Drug Dosing 71.9 ml/min 06/22/23 19:47 Est GFR ( Amer) 79.9 ml/min 06/22/23 19:47 Est GFR (Non-Af Amer) 69.0 ml/min 06/22/23 19:47 BUN/Creatinine Ratio 15.7 (10-20) 06/22/23 19:47 Glucose 142 mg/dl (70-99(Fasting)) H 06/22/23 19:47 Lactate 1.1 mmol/L (0.4-2.0) 06/22/23 21:24 Calcium 9.3 mg/dl (8.6-10.3) 06/22/23 19:47 Magnesium 1.8 mg/dl (1.7-2.4) 06/22/23 19:47 Total Bilirubin 0.7 mg/dl (0.2-1.0) 06/22/23 19:47 AST 16 U/L (13-39) 06/22/23 19:47 ALT 10 U/L (7-52) 06/22/23 19:47 Alkaline Phosphatase 102 U/L (34-104) 06/22/23 19:47 Troponin I High Sens 7.8 pg/ml (0-14) 06/22/23 19:47 B-Natriuretic Peptide 220 pg/ml (0-100) H 06/22/23 19:47 Total Protein 7.5 gm/dl (6.0-8.3) 06/22/23 19:47 Albumin 3.9 gm/dl (3.4-5.0) 06/22/23 19:47 Globulin 3.6 gm/dl (2.5-4.0) 06/22/23 19:47 Albumin/Globulin Ratio 1.1 (0.9-2) 06/22/23 19:47 Procalcitonin < 0.05 ng/ml (0-0.5) 06/22/23 19:47 Urine Color Yellow 06/23/23 00:20 Urine Appearance Cloudy (Clear) A 06/23/23 00:20 Urine pH 6.5 (4.5-7.5) 06/23/23 00:20 Ur Specific [place] 1.007 (1.000-1.030) 06/23/23 00:20 Urine Protein Negative (Negative) 06/23/23 00:20 Urine Glucose (UA) Negative (Negative) 06/23/23 00:20 Urine Ketones Negative (Negative) 06/23/23 00:20 Urine Blood Negative (Negative) 06/23/23 00:20 Urine Nitrite Negative (Negative) 06/23/23 00:20 Urine Bilirubin Negative (Negative) 06/23/23 00:20 Urine Urobilinogen Negative (Negative) 06/23/23 00:20 Ur Leukocyte Esterase 1+ (Negative) H 06/23/23 00:20 Urine WBC (Auto) 1-5 /hpf (0-5) 06/23/23 00:20 Urine RBC (Auto) 0-4 /hpf (0-4) 06/23/23 00:20 U Hyaline Cast (Auto) 0 /lpf (0-5) 06/23/23 00:20 U Epithel Cells (Auto) 10-20 /lpf (0-5) H 06/23/23 00:20 Urine Bacteria (Auto) Negative (Negative) 06/23/23 00:20 Adenovirus (PCR) Not Detected (NotDetected) 06/22/23 19:38 B. pertussis DNA (PCR) Not Detected (NotDetected) 06/22/23 19:38 B.parapertussis DNA PCR Not Detected (NotDetected) 06/22/23 19:38 C. pneumoniae DNA (PCR) Not Detected (NotDetected) 06/22/23 19:38 Coronavirus OC43 (PCR) Not Detected (NotDetected) 06/22/23 19:38 Coronavirus HKU1 (PCR) Not Detected (NotDetected) 06/22/23 19:38 Coronavirus 229E (PCR) Not Detected (NotDetected) 06/22/23 19:38 SARS-CoV-2 (PCR) NEGATIVE (Negative) 06/22/23 19:38 SARS-CoV-2 (PCR) Not Detected (NotDetected) 06/22/23 19:38 Coronavirus NL63 (PCR) Not Detected (NotDetected) 06/22/23 19:38 Human Metapneumovir PCR Not Detected (NotDetected) 06/22/23 19:38 Influenza Type A (PCR) Not Detected (NotDetected) 06/22/23 19:38 Influenza Type B (PCR) Not Detected (NotDetected) 06/22/23 19:38 M. pneumoniae (PCR) Not Detected (NotDetected) 06/22/23 19:38 Parainfluenza 1 (PCR) Not Detected (NotDetected) 06/22/23 19:38 Parainfluenza 2 (PCR) Not Detected (NotDetected) 06/22/23 19:38 Parainfluenza 3 (PCR) Not Detected (NotDetected) 06/22/23 19:38 Parainfluenza 4 (PCR) Not Detected (NotDetected) 06/22/23 19:38 RSV (PCR) Not Detected (NotDetected) 06/22/23 19:38 Entero/Rhino (PCR) DETECTED (NotDetected) A* 06/22/23 19:38 Code Status & VTE Plan Code Status Full code VTE Prophylaxis Plan VTE Prophylaxis will be ordered: Yes PG Care Time/CCT Total # of Minutes Spent Total Time Spent with Patient: Total time spent is greater than 50% in coordination of care (as documented) at patient's floor/unit and/or counseling patient: Coding Level of Care Code 01384 INT INP/OBS CARE 3/75MIN Diagnoses Acute on chronic respiratory failure with hypoxia J96.21 Rhinovirus infection B34.8 Shortness of breath R06.02 COPD exacerbation J44.1 Restrictive lung disease J98.4 Autonomic neuropathy G90.9 Paroxysmal atrial fibrillation I48.0 Atrial fibrillation type: paroxysmal Hyperlipemia E78.5 Obstructive sleep apnea G47.33 Anticoagulant long-term use Z79.01 CHF (congestive heart failure) I50.9 (7) Atrial fibrillation Atrial fibrillation type: paroxysmal Qualified Code(s): I48.0 - Paroxysmal atrial fibrillation
[2023-06-23] MEDS ORDERED: IPRATROPIUM BROMIDE NEB SOLN 0.02% 0.5MG/2.5ML VIAL INH PRN (01:42)
[2023-06-23] MEDS ORDERED: ARTIFICIAL TEARS OP PRN (02:43)
[2023-06-23] MEDS: ALBUT/IPRATROP 3MG/0.5MG NEB 3 ML VIAL NEB PRN (03:00)
[2023-06-23] MEDS: AZITHROMYCIN 500 MG in DEXTROSE 5% 250 ML IV SCH (03:46)
[2023-06-23 06:12] LABS: Basophils # (auto) 0.04 K/uL (0.00-0.20); Basophils % (auto) 0.4 %; Eosinophils # (auto) 0.19 K/uL (0.00-0.50); Eosinophils % (auto) 1.8 %; Hematocrit (blood only) 39.2 % (37.0-47.0); Hemoglobin 12.5 g/dl (12.0-16.0); Immature Granulocytes # (auto) 0.05 K/uL (0.01-0.20); Immature Granulocytes % (auto) 0.5 %; Lymphocytes # (auto) 1.04 K/uL (1.20-3.40); Lymphocytes % (auto) 10.1 %; Mean Corpuscular Hemoglobin 28.4 pg (25.0-34.0); Mean Corpuscular Hgb Conc 31.9 g/dL (32.0-36.0); Mean Corpuscular Volume 89.1 fL (80.0-100.0); Mean Platelet Volume 9.9 fL (9.4-12.4); Monocytes # (auto) 0.87 K/uL (0.11-0.59); Monocytes % (auto) 8.4 %; Neutrophils # (auto) 8.13 K/uL (1.40-6.50); Neutrophils % (auto) 78.8 %; Platelet Count 210 K/uL (130-400); RDW Coefficient of Variation 14.2 % (11.5-14.5); RDW Standard Deviation 46.3 fL (36.4-46.3); White Blood Count 10.32 K/ul (4.8-10.8)
[2023-06-23 06:34] LABS: Albumin Level 3.8 gm/dl (3.4-5.0); BUN Creatinine Ratio 16.9 (10-20); Calcium 9.1 mg/dl (8.6-10.3); Est GFR (African American) 96.6 ml/min; Est GFR (Non-African American) 83.3 ml/min; Phosphorus 3.4 mg/dl (2.5-4.9); Potassium 3.2 mmol/L (3.5-5.1)
[2023-06-23] MEDS: ALBUT/IPRATROP 3MG/0.5MG NEB 3 ML VIAL NEB SCH ×4 (06:50→19:38)
[2023-06-23] MEDS ORDERED: BUDESONIDE 0.5 MG/2 ML VIAL (PULMICORT) NEB SCH (07:00)
--- NOTE | 2023-06-23 07:22 | XRay Report ---
XR chest 1V portable CLINICAL HISTORY: Dyspnea. COMPARISON STUDY: Chest radiograph March 10, 2022. Chest CT June 22, 2017. FINDINGS: Lung volumes are normal. There is no pneumothorax or pleural effusion. Moderate cardiomegal y is unchanged. There is no consolidation. Pulmonary vascularity is normal. IMPRESSION: No acute cardiopulmonary findings. Cardiomegaly. ACT 112: Negative or not required by law. Electronically signed by: Chucho Mcclendon M.D. 06/23/2023 7:21 AM
[2023-06-23 07:26] LABS: Troponin I High Sensitivity 8.9 pg/ml (0-14)
[2023-06-23] MEDS: LEVOTHYROXINE SODIUM 75 MCG TABLET PO SCH (07:38)
[2023-06-23] MEDS ORDERED: POTASSIUM CHLORIDE CRTAB 20 MEQ TABCR PO STA (08:13)
[2023-06-23] MEDS: ACETAMINOPHEN 325 MG TAB PO PRN ×2 (08:28→16:44)
[2023-06-23] MEDS: ATORVASTATIN 20 MG TAB PO SCH (08:28)
[2023-06-23] MEDS: FUROSEMIDE 20 MG TAB PO SCH (08:28)
[2023-06-23] MEDS: GABAPENTIN 300 MG CAP PO SCH ×2 (08:28→20:31)
[2023-06-23] MEDS: FLECAINIDE ACETATE 100 MG TABLET PO SCH ×2 (08:28→20:30)
[2023-06-23] MEDS: guaiFENesin 600 MG TABCR PO SCH ×2 (08:29→20:31)
[2023-06-23] MEDS: METOPROLOL SUCC 50MG EXT REL TAB PO SCH (08:29)
[2023-06-23] MEDS: PANTOprazole 40 MG TAB PO SCH (09:37)
--- NOTE | 2023-06-23 11:22 | Electrocardiogram Report ---
Test Reason : Blood Pressure : / mmHG Vent. Rate : 133 BPM Atrial Rate : 000 BPM P-R Int : 000 ms QRS Dur : 146 ms QT Int : 348 ms P-R-T Axes : 000 019 004 degrees QTc Int : 517 ms Atrial fibrillation with rapid ventricular response Right bundle branch block T wave abnormality, consider lateral ischemia Abnormal ECG When compared with ECG of 28-APR-2023 12:45, (unconfirmed) QRS duration has decreased Confirmed by Jese Hoskins ([id number]) on 06/23/2023 11:22:01 AM Referred By: REFERRED SELF Confirmed By:Amrit Hoskins
--- NOTE | 2023-06-23 11:41 | XCELERA ---
[id number]\[id number]
[2023-06-23] MEDS ORDERED: POTASSIUM CHLORIDE 10 MEQ TABCR PO ONE (11:44)
--- NOTE | 2023-06-23 14:05 | Hospitalist Progress Note ---
Date of Service June 23, 2023 Assessment & Plan (1) Acute on chronic respiratory failure with hypoxia: (2) COPD exacerbation: (3) Rhinovirus infection: (4) Shortness of breath: (5) Obesity: (6) Obstructive sleep apnea: Plan # Acute on chronic respiratory failure with hypoxia 2/2 COPD exacerbation 2/2 rhinovirus infection DuoNebs 4 times daily, and every 2 hours as needed Azithromycin 500 mg IV every 24 hours Guaifenesin extended release 1200 mg p.o. every 12 hours Montelukast 10 mg p.o. at bedtime Nasal cannula oxygen, titrate to keep pulse ox around 94% Prednisone 40mg PO daily x 5 days (day 06/04) Droplet precautions # Atrial fibrillation/hypertension/CHF exacerbation- Continue to monitor on telemetry flecainide 100 mg p.o. twice daily metoprolol succinate 100 mg p.o. every morning Xarelto 20 mg p.o. every afternoon furosemide 20 mg p.o. every morning Echo EF 55-60% Hold amlodipine for blood pressure Admission and Anticipated Discharge Date Admission Date: June 23, 2023 Supervising Physician Co-Signing Physician Notes Attending attestation Pt seen and examined in concert with Dr. Harden. In agreement with the documented findings as noted in the resident documentation with any exceptions or additions as noted here. Ongoing cough and chest tightness at rest and with activity. On examination, S1/S2 nl RRR no MCG. Scattered wheeze. Abd NT/ND BS+ve Acute hypoxic respiratory failure in the setting of COPD with acute exacerbation - continue duonebs, azithromycin, prednisone. O2 per protocol. Hold pulmicort for now Congestive heart failure with AF, HTN - repeat echo pending today. Continue flecanide, toprol, xarelto and daily furosemide. Holding amlodipine. Else see resident documentation as noted. Subjective Mild fever overnight of 37.8 C, and was given liquid acetaminophen. Pateint mentions difficult sleeping last night but is currently on 2L nasal cannula and appears comfortable, thought mentions slightly more work of breathing than normal. Patient mention loss of appetite yesterday but is eating and drinking more today. Overall she mentions no change since she has been here. Endorses CHEW. She denies chest pain, chills, nausea, abdominal pain. Review of Systems Review of Systems: reviewed, per HPI Physical Exam Physical Exam: General: patient resting comfortably, NAD, non-toxic in appearance, answers questions appropriately and follows commands. Skin: warm, dry, intact HEENT: NC/AT, anicteric sclera, conjunctiva without injection, moist mucus membranes, no JVD Heart: +S1/S2, regular, no m/r/g Lungs: equal air entry bilaterally, bilateral biphasic wheeze Abd: +BS, soft, NT/ND Ext: warm, no clubbing/cyanosis or edema Neuro: nonfocal, speech intact, no facial droop, moving all extremities on command. Results & Data Results & Data Vital Signs (Past 12 Hours) Vital Signs Pulse Pulse Resp BP BP Pulse Ox Pulse Ox 06/23/23 14:03 106 H 20 143/87 H 95 06/23/23 13:50 103 H 20 90 06/23/23 11:54 87 20 110/59 L 95 06/23/23 10:43 90 20 94 06/23/23 08:31 94 06/23/23 08:18 102 H 22 124/73 93 06/23/23 07:09 116 H 06/23/23 06:51 115 H 22 94 06/23/23 06:00 101 H 18 117/79 96 06/23/23 04:00 103 H 22 125/79 96 06/23/23 03:10 108 H 22 114/84 93 06/23/23 03:01 103 H 22 92 06/23/23 03:00 113 H 18 99/70 L 93 O2 Del Method O2 Del Method O2 Flow Rate O2 Flow Rate 06/23/23 14:03 Nasal Cannula 2 06/23/23 13:50 Room Air 06/23/23 11:54 Room Air 06/23/23 10:43 Nasal Cannula 2 06/23/23 08:31 Nasal Cannula 2 06/23/23 08:18 Nasal Cannula 2 06/23/23 07:09 06/23/23 06:51 Nasal Cannula 2 06/23/23 06:00 06/23/23 04:00 06/23/23 03:10 06/23/23 03:01 Nasal Cannula 2 06/23/23 03:00
[2023-06-23] MEDS: RIVAROXABAN 20 MG TAB PO SCH (16:40)
[2023-06-23] MEDS: predniSONE 20 MG TAB PO SCH (16:40)
[2023-06-23] MEDS: ASCORBIC ACID 500 MG TAB PO SCH (20:30)
[2023-06-23] MEDS: MONTELUKAST SODIUM 10 MG TABLET PO SCH (20:30)
[2023-06-23] MEDS: LATANOPROST 0.005% OP SOLN 2.5 ML BTL OP SCH (20:31)
[2023-06-23] MEDS: CALCIUM 600MG + VIT D 400 IU TAB PO SCH (20:31)
[2023-06-23] MEDS ORDERED: COUGH DROP (SUGAR FREE) LOZ 24 LOZ/1 BOX BUCCAL PRN (23:50)
[2023-06-24 04:57] LABS: Basophils # (auto) 0.03 K/uL (0.00-0.20); Basophils % (auto) 0.4 %; Hemoglobin 11.7 g/dl (12.0-16.0); Immature Granulocytes # (auto) 0.05 K/uL (0.01-0.20); Immature Granulocytes % (auto) 0.7 %; Lymphocytes # (auto) 0.97 K/uL (1.20-3.40); Lymphocytes % (auto) 12.7 %; Mean Corpuscular Hemoglobin 28.8 pg (25.0-34.0); Mean Corpuscular Hgb Conc 32.5 g/dL (32.0-36.0); Mean Corpuscular Volume 88.7 fL (80.0-100.0); Mean Platelet Volume 9.8 fL (9.4-12.4); Monocytes # (auto) 0.29 K/uL (0.11-0.59); Monocytes % (auto) 3.8 %; Neutrophils % (auto) 82.4 %; Platelet Count 212 K/uL (130-400); RDW Coefficient of Variation 14.4 % (11.5-14.5); RDW Standard Deviation 46.4 fL (36.4-46.3); Red Blood Count 4.06 M/uL (4.20-5.40); White Blood Count 7.64 K/ul (4.8-10.8)
[2023-06-24 05:43] LABS: Albumin Level 3.5 gm/dl (3.4-5.0); BUN Creatinine Ratio 19.4 (10-20); Calcium 9.7 mg/dl (8.6-10.3); Creatinine Clr Calc Pharmacy 82.8 ml/min; Est GFR (African American) 94.9 ml/min; Est GFR (Non-African American) 81.9 ml/min; Potassium 4.2 mmol/L (3.5-5.1)
[2023-06-24] MEDS: AZITHROMYCIN 500 MG in DEXTROSE 5% 250 ML IV SCH (06:06)
[2023-06-24] MEDS: ALBUT/IPRATROP 3MG/0.5MG NEB 3 ML VIAL NEB SCH ×4 (06:14→19:44)
[2023-06-24] MEDS: LEVOTHYROXINE SODIUM 75 MCG TABLET PO SCH (06:27)
--- NOTE | 2023-06-24 07:27 | Hospitalist Progress Note ---
Date of Service June 24, 2023 Assessment & Plan (1) Acute on chronic respiratory failure with hypoxia: (2) COPD exacerbation: (3) Rhinovirus infection: (4) Shortness of breath: (5) Obesity: (6) Obstructive sleep apnea: Plan # Acute on chronic respiratory failure with hypoxia 2/2 COPD exacerbation 2/2 rhinovirus infection DuoNebs 4 times daily, and every 2 hours as needed Azithromycin 500 mg IV every 24 hours Guaifenesin extended release 1200 mg p.o. every 12 hours Montelukast 10 mg p.o. at bedtime Nasal cannula oxygen, titrate to keep pulse ox around 94% Will start IV steroids due to slow improvement- 60mg methylpred BID (day 1) Prednisone 40mg PO daily x 1 day while admitted Droplet precautions # Atrial fibrillation/hypertension/CHF exacerbation- Continue to monitor on telemetry flecainide 100 mg p.o. twice daily metoprolol succinate 100 mg p.o. every morning Xarelto 20 mg p.o. every afternoon furosemide 20 mg p.o. every morning Echo EF 55-60% Amlodipine 5mg qAM Admission and Anticipated Discharge Date Admission Date: June 23, 2023 Supervising Physician Co-Signing Physician Notes Attending attestation Pt seen and examined in concert with Dr. Harden. In agreement with the documented findings as noted in the resident documentation with any exceptions or additions as noted here. Ongoing cough and chest tightness at rest and with activity improved from admission marginally. On examination, S1/S2 nl RRR no MCG. Scattered wheeze. Abd NT/ND BS+ve Acute hypoxic respiratory failure in the setting of COPD with acute exacerbation - continue duonebs, azithromycin. Escalate to IV solumedrol and monitor. O2 per protocol. Hold pulmicort. Congestive heart failure with AF, HTN - AF on telemetry today. Continue flecanide, toprol, xarelto and daily furosemide. Holding amlodipine. Consider increase metoprolol with persistent elevation > 100. Else see resident documentation as noted. Subjective No acute events overnight. NAD. Feels she is improving slightly. Headache again this AM. Remains on 2L NC. Tele reviewed: in Afib since admission, rate escalated around 0500 today. Otherwise, VSS. Labs unremarkable. Ambulating from bed to bathroom. Seated in chair. Denies CP, SOB, N/V/D. Review of Systems Review of Systems: reviewed, per HPI Physical Exam Physical Exam: General: patient resting comfortably, NAD, non-toxic in appearance, answers questions appropriately and follows commands. Skin: warm, dry, intact HEENT: NC/AT, anicteric sclera, conjunctiva without injection, moist mucus membranes, no JVD Heart: +S1/S2, regular, no m/r/g Lungs: equal air entry bilaterally, bilateral biphasic wheeze Abd: +BS, soft, NT/ND Ext: warm, no clubbing/cyanosis or edema Neuro: nonfocal, speech intact, no facial droop, moving all extremities on command. Results & Data Results & Data Vital Signs (Past 12 Hours) Vital Signs Temp Pulse Pulse Resp BP Pulse Ox O2 Del Method 06/24/23 06:14 104 H 20 94 Nasal Cannula 06/24/23 03:47 36.8 C 98 H 18 141/87 H 96 Nasal Cannula 06/24/23 01:07 114 H 06/24/23 00:51 Nasal Cannula 06/23/23 23:51 36.8 C 107 H 18 114/82 95 Nasal Cannula O2 Flow Rate 06/24/23 06:14 2 06/24/23 03:47 2 06/24/23 01:07 06/24/23 00:51 2 06/23/23 23:51 2
[2023-06-24] MEDS: GABAPENTIN 300 MG CAP PO SCH ×2 (09:37→20:49)
[2023-06-24] MEDS: METOPROLOL SUCC 50MG EXT REL TAB PO SCH (09:37)
[2023-06-24] MEDS: FUROSEMIDE 20 MG TAB PO SCH (09:37)
[2023-06-24] MEDS: FLECAINIDE ACETATE 100 MG TABLET PO SCH ×2 (09:37→20:50)
[2023-06-24] MEDS: ATORVASTATIN 20 MG TAB PO SCH (09:38)
[2023-06-24] MEDS: guaiFENesin 600 MG TABCR PO SCH ×2 (09:38→20:51)
[2023-06-24] MEDS: PANTOprazole 40 MG TAB PO SCH (09:39)
[2023-06-24] MEDS: methylPREDNISolone 60 MG in SYRINGE 0 ML IV SCH ×2 (09:40→20:57)
[2023-06-24] MEDS: ACETAMINOPHEN 325 MG TAB PO PRN ×2 (09:46→16:58)
[2023-06-24] MEDS: RIVAROXABAN 20 MG TAB PO SCH (16:58)
[2023-06-24] MEDS: CALCIUM 600MG + VIT D 400 IU TAB PO SCH (20:49)
[2023-06-24] MEDS: ASCORBIC ACID 500 MG TAB PO SCH (20:50)
[2023-06-24] MEDS: MONTELUKAST SODIUM 10 MG TABLET PO SCH (20:50)
[2023-06-24] MEDS: LATANOPROST 0.005% OP SOLN 2.5 ML BTL OP SCH (20:51)
[2023-06-24] MEDS: ARTIFICIAL TEARS OP SCH (20:56)
[2023-06-24] MEDS: ALBUT/IPRATROP 3MG/0.5MG NEB 3 ML VIAL NEB PRN (23:58)
[2023-06-25 05:25] LABS: Basophils # (auto) 0.01 K/uL (0.00-0.20); Basophils % (auto) 0.1 %; Hematocrit (blood only) 38.3 % (37.0-47.0); Hemoglobin 12.1 g/dl (12.0-16.0); Immature Granulocytes # (auto) 0.09 K/uL (0.01-0.20); Lymphocytes % (auto) 8.7 %; Mean Corpuscular Hemoglobin 28.1 pg (25.0-34.0); Mean Corpuscular Hgb Conc 31.6 g/dL (32.0-36.0); Mean Corpuscular Volume 89.1 fL (80.0-100.0); Mean Platelet Volume 9.7 fL (9.4-12.4); Monocytes # (auto) 0.13 K/uL (0.11-0.59); Monocytes % (auto) 1.4 %; Neutrophils # (auto) 8.19 K/uL (1.40-6.50); Neutrophils % (auto) 88.8 %; Platelet Count 231 K/uL (130-400); RDW Coefficient of Variation 14.2 % (11.5-14.5); White Blood Count 9.22 K/ul (4.8-10.8)
[2023-06-25 05:42] LABS: Albumin Level 3.7 gm/dl (3.4-5.0); BUN Creatinine Ratio 26.5 (10-20); Calcium 9.7 mg/dl (8.6-10.3); Creatinine Clr Calc Pharmacy 87.9 ml/min; Est GFR (African American) 99.2 ml/min; Est GFR (Non-African American) 85.6 ml/min; Magnesium 2.1 mg/dl (1.7-2.4); Phosphorus 3.9 mg/dl (2.5-4.9); Potassium 4.2 mmol/L (3.5-5.1)
[2023-06-25] MEDS: LEVOTHYROXINE SODIUM 75 MCG TABLET PO SCH (06:02)
[2023-06-25] MEDS: AZITHROMYCIN 500 MG in DEXTROSE 5% 250 ML IV SCH (06:02)
[2023-06-25] MEDS: ACETAMINOPHEN 325 MG TAB PO PRN (06:17)
[2023-06-25] MEDS: ALBUT/IPRATROP 3MG/0.5MG NEB 3 ML VIAL NEB SCH ×4 (07:17→19:30)
[2023-06-25] MEDS: GABAPENTIN 300 MG CAP PO SCH ×2 (08:17→21:18)
[2023-06-25] MEDS: METOPROLOL SUCC 50MG EXT REL TAB PO SCH (08:17)
[2023-06-25] MEDS: methylPREDNISolone 60 MG in SYRINGE 0 ML IV SCH ×2 (08:17→21:17)
[2023-06-25] MEDS: amLODIPine BESYLATE 5 MG TAB PO SCH (08:17)
[2023-06-25] MEDS: ATORVASTATIN 20 MG TAB PO SCH (08:17)
[2023-06-25] MEDS: FLECAINIDE ACETATE 100 MG TABLET PO SCH ×2 (08:18→21:18)
[2023-06-25] MEDS: PANTOprazole 40 MG TAB PO SCH (08:18)
[2023-06-25] MEDS: guaiFENesin 600 MG TABCR PO SCH ×2 (08:18→21:17)
[2023-06-25] MEDS: ARTIFICIAL TEARS OP SCH ×2 (08:18→21:18)
[2023-06-25] MEDS: FUROSEMIDE 20 MG TAB PO SCH (08:18)
--- NOTE | 2023-06-25 08:56 | Hospitalist Progress Note ---
Date of Service June 25, 2023 Assessment & Plan (1) Acute on chronic respiratory failure with hypoxia: (2) COPD exacerbation: (3) Rhinovirus infection: (4) Shortness of breath: (5) Obesity: (6) Obstructive sleep apnea: Plan # Acute on chronic respiratory failure with hypoxia 2/2 COPD exacerbation 2/2 rhinovirus infection DuoNebs 4 times daily, and every 2 hours as needed Azithromycin 500 mg IV every 24 hours Guaifenesin extended release 1200 mg p.o. every 12 hours Montelukast 10 mg p.o. at bedtime Nasal cannula oxygen, titrate to keep pulse ox around 94% Will start IV steroids due to slow improvement- 60mg methylpred BID (day 1) Prednisone 40mg PO daily x 1 day while admitted Droplet precautions # Atrial fibrillation/hypertension/CHF exacerbation- Continue to monitor on telemetry flecainide 100 mg p.o. twice daily metoprolol succinate 100 mg p.o. every morning Xarelto 20 mg p.o. every afternoon furosemide 20 mg p.o. every morning Echo EF 55-60% Amlodipine 5mg qAM Admission and Anticipated Discharge Date Admission Date: ATTESTATION I also saw the patient and confirmed cisneros portions of the history and exam. I agree with the impression and plan in the resident documentation, and as summarized below. Upon our early afternoon exam, the patient is seated eating lunch. She feels little bit better in terms of breathing, but not at her baseline EXAM 154/86, 99, 18, 36.5, 97% on nasal cannula 2 L/min Alert and oriented Cardiovascular irregularly irregular, auscultated rate 90 Lungs with mid and expiratory wheeze throughout IMPRESSION & PLAN Acute on chronic respiratory failure with hypoxia secondary to COPD exacerbation in the setting of rhinovirus infection General trend of improvement Continue IV methylprednisolone, consider transition to p.o. tomorrow if continues to improve Atrial fibrillation Rate somewhat higher end of low-grade like, but likely due to acute illness and steroid side effect Still acceptable, continue to monitor; suspect will improve with resolution of underlying illness and tapering of steroids Additional per resident documentation Subjective No acute events overnight. Patient seen and evaluated at bedside this morning. Feeling better today. Still with productive cough. Remains tachycardic; tele reviewed persistent afib at >100. Labs reviewed, largely unremarkable. Patient denies CP, SOB, abdominal pain, nausea, vomiting, lightheadedness, dizziness, and diarrhea. Review of Systems Review of Systems: reviewed, per HPI Physical Exam Physical Exam: General: patient resting comfortably, NAD, non-toxic in appearance, answers questions appropriately and follows commands. Skin: warm, dry, intact HEENT: NC/AT, anicteric sclera, conjunctiva without injection, moist mucus membranes, no JVD Heart: +S1/S2, regular, no m/r/g Lungs: equal air entry bilaterally, expiratory wheeze, prolonged expiratory phase Abd: +BS, soft, NT/ND Ext: warm, no clubbing/cyanosis or edema Neuro: nonfocal, speech intact, no facial droop, moving all extremities on command. Results & Data Results & Data Vital Signs (Past 12 Hours) Vital Signs Temp Pulse Pulse Pulse Resp BP Pulse Ox 06/25/23 08:24 06/25/23 08:15 06/25/23 07:46 36.4 C L 101 H 18 149/85 H 96 06/25/23 07:36 107 H 20 96 06/25/23 03:45 36.6 C 94 H 16 152/84 H 95 06/24/23 23:58 103 H 20 96 06/24/23 23:22 36.9 C 63 18 116/69 94 06/24/23 22:10 97 H O2 Del Method O2 Flow Rate 06/25/23 08:24 Nasal Cannula 1 06/25/23 08:15 Nasal Cannula 1 06/25/23 07:46 Nasal Cannula 2 06/25/23 07:36 Nasal Cannula 2 06/25/23 03:45 Nasal Cannula 2 06/24/23 23:58 Nasal Cannula 2 06/24/23 23:22 High Flow Nasal Cannula 9 06/24/23 22:10
[2023-06-25] MEDS: predniSONE 20 MG TAB PO SCH (15:07)
[2023-06-25] MEDS: RIVAROXABAN 20 MG TAB PO SCH (18:03)
[2023-06-25] MEDS: ASCORBIC ACID 500 MG TAB PO SCH (21:19)
[2023-06-25] MEDS: MONTELUKAST SODIUM 10 MG TABLET PO SCH (21:19)
[2023-06-25] MEDS: CALCIUM 600MG + VIT D 400 IU TAB PO SCH (21:19)
[2023-06-25] MEDS: LATANOPROST 0.005% OP SOLN 2.5 ML BTL OP SCH (21:20)
[2023-06-26] MEDS: ACETAMINOPHEN 325 MG TAB PO PRN (03:46)
[2023-06-26 05:43] LABS: Hematocrit (blood only) 38.2 % (37.0-47.0); Hemoglobin 12.4 g/dl (12.0-16.0); Mean Corpuscular Hemoglobin 28.4 pg (25.0-34.0); Mean Corpuscular Hgb Conc 32.5 g/dL (32.0-36.0); Mean Corpuscular Volume 87.6 fL (80.0-100.0); Mean Platelet Volume 9.9 fL (9.4-12.4); Platelet Count 257 K/uL (130-400); RDW Coefficient of Variation 14.1 % (11.5-14.5); RDW Standard Deviation 45.4 fL (36.4-46.3); Red Blood Count 4.36 M/uL (4.20-5.40); White Blood Count 10.43 K/ul (4.8-10.8)
[2023-06-26] MEDS: AZITHROMYCIN 500 MG in DEXTROSE 5% 250 ML IV SCH (06:03)
[2023-06-26] MEDS: LEVOTHYROXINE SODIUM 75 MCG TABLET PO SCH (06:03)
[2023-06-26 06:26] LABS: Immature Granulocytes # (auto) 0.05 K/uL (0.01-0.20); Immature Granulocytes % (auto) 0.5 %; Lymphocytes # (auto) 0.75 K/uL (1.20-3.40); Lymphocytes % (auto) 7.2 %; Monocytes # (auto) 0.21 K/uL (0.11-0.59); Neutrophils # (auto) 9.42 K/uL (1.40-6.50); Neutrophils % (auto) 90.3 %; RBC Morphology Unremarkable
[2023-06-26 06:33] LABS: Magnesium 2.2 mg/dl (1.7-2.4); Potassium 4.8 mmol/L (3.5-5.1)
[2023-06-26 06:38] LABS: Creatinine Clr Calc Pharmacy 70.1 ml/min; Est GFR (African American) 75.5 ml/min; Est GFR (Non-African American) 65.2 ml/min
[2023-06-26] MEDS: ALBUT/IPRATROP 3MG/0.5MG NEB 3 ML VIAL NEB SCH ×4 (07:08→20:34)
--- NOTE | 2023-06-26 07:34 | Discharge Summary ---
Date of Service June 26, 2023 Admission HPI Per Admitting Provider The patient is a 77-year-old female with a past medical history including mixed urinary incontinence, poor balance, autonomic neuropathy, asthma, atrial fibrillation, peripheral venous insufficiency, SSS, right bundle branch block, restrictive lung disease, cellulitis of left lower extremity with healed wound as of 03-22-2023, LISSETH, COPD, long-term anticoagulant use, hypertension, and CHF. The patient presents to the emergency department with symptoms as noted above. Workup in the emergency department included a [employer] test positive for rhinovirus/enterovirus. From the EMS en route, she received a DuoNeb and albuterol treatment. From the ED she received furosemide 40 mg IV, and Tylenol 1 g IV. She reportedly had a urine output of 1 L while in the ED Discharge Data Allergies Allergy/AdvReac Type Severity Reaction Status Date / Time pecan nut Allergy Severe TONGUE Verified 06/22/23 20:16 SWELLS house dust Allergy Intermediate SNEEZING, Verified 06/22/23 20:16 CONGESTION Sulfa (Sulfonamide AdvReac Intermediate YEAST Verified 06/22/23 20:16 Antibiotics) INFECTION Consultations 06/22/23 23:33 ED Decision to Admit Stat Discharge Plan Discharge Items Reason For Visit: ACUTE RESP FAILURE W/ HYPOXIA, RHINOVIRUS Follow-up/Referrals: Ronda Adamson CRNP [Primary Care Provider] - Medications and DC Order Prescriptions: No Action (DME) nebulizer accessories Misc See Rx Instructions .ROUTE .MEDSUPPLY Qty: 1 0RF Rx Instructions: NEBULIZER TUBING. (DME) nebulizers Misc See Rx Instructions .ROUTE .MEDSUPPLY Qty: 1 0RF Rx Instructions: Nebulizer and nebulizer set up. DX: J44.9 (DME) compression socks, x-large Misc See Rx Instructions .ROUTE .MEDSUPPLY Qty: 2 0RF Rx Instructions: SIZE X-LARGE WITHOUT TOES R60.9 I87.2 (DME) miscellaneous medical supply Misc See Rx Instructions .ROUTE .MEDSUPPLY Qty: 1 0RF Rx Instructions: OXYGEN TUBING J45.909 J98.4 G47.34 (DME) nebulizer accessories Misc See Rx Instructions .ROUTE .MEDSUPPLY Qty: 1 0RF Rx Instructions: NEBULIZER TUBING R06.00 J98.4 J45.909 (DME) nebulizer accessories Kit See Rx Instructions .Route Qty: 1 0RF Rx Instructions: As directed furosemide 20 mg tablet 20 mg PO QAM Qty: 90 3RF Rx Instructions: TAKE 1 TABLET BY MOUTH EVERY MORNING levalbuterol HCl 1.25 mg/3 mL solution for nebulization 1.25 mg inhalation Q4H PRN (Reason: Shortness Of Breath Or Wheezing) Qty: 1620 1RF Rx Instructions: PER PT "USE 3-4 TIMES DAILY" amlodipine 5 mg tablet 5 mg PO QAM Qty: 90 3RF gabapentin 300 mg capsule 300 mg PO BID Qty: 180 3RF metoprolol succinate 100 mg capsule,sprinkle,ER 24hr 100 mg PO QAM Qty: 90 3RF nystatin 100,000 unit/gram cream 1 applic TOP TID PRN (Reason: Skin Irritation) Qty: 30 1RF Patient Comments: pt stated she only uses the cream Rx Instructions: alternate application with powder montelukast 10 mg tablet 10 mg PO HS Qty: 90 3RF levothyroxine 75 mcg tablet 75 mcg PO QAM Qty: 90 3RF ipratropium bromide 0.02 % solution 2.5 ml INH Q6H PRN (Reason: shortness of breath or wheezing) Qty: 1620 3RF Rx Instructions: PER PT "USE 3-4 TIMES DAILY rivaroxaban 20 mg tablet 20 mg PO QPM Qty: 90 3RF (DME) Shower Chair Misc See Rx Instructions .Route Qty: 1 0RF Rx Instructions: Bariatric shower chair calcium carbonate-vitamin D3 500 mg(1,250mg) -200 unit tablet 1 tab PO QPM Patient Comments: evening cyclosporine [Restasis] 0.05 % dropperette 1 drops ophthalmic (eye) BID docusate sodium 100 mg capsule 100 mg PO QAM PRN (Reason: Constipation) latanoprost 0.005 % drops 1 drops OP HS ascorbic acid (vitamin C) [Vitamin C] 500 mg Tablet 500 mg PO QPM Patient Comments: noon acetaminophen [Acetaminophen Extra Strength] 500 mg Tablet 1,000 mg PO Q6H PRN (Reason: Pain) flecainide 100 mg tablet 100 mg PO BID Rx Instructions: PER PT "ON HOLD PER MD". guaifenesin [Mucinex] 600 mg tablet extended release 12hr 600 mg PO BID Rx Instructions: OTC atorvastatin 20 mg tablet 20 mg PO QAM Patient Comments: around noon Admission Data Admit Date/Time: 06/23/23 01:27 Attending Provider: Anselmo Gibbs Admit Provider: Zafar Crouch Primary Care Provider: Ronda Adamson Other Providers: Zafar Crouch; [place],[facility]; [facility]
--- NOTE | 2023-06-26 07:35 | Hospitalist Progress Note ---
Date of Service June 26, 2023 Assessment & Plan (1) Acute on chronic respiratory failure with hypoxia: (2) COPD exacerbation: (3) Rhinovirus infection: (4) Shortness of breath: (5) Obesity: (6) Obstructive sleep apnea: Plan # Acute on chronic respiratory failure with hypoxia 2/2 COPD exacerbation 2/2 rhinovirus infection DuoNebs 4 times daily, and every 2 hours as needed Azithromycin 500 mg IV every 24 hours Guaifenesin extended release 1200 mg p.o. every 12 hours Montelukast 10 mg p.o. at bedtime Nasal cannula oxygen, titrate to keep pulse ox around 94% Will start IV steroids due to slow improvement- 60mg methylpred BID (day 3) Prednisone 40mg PO daily x 1 day while admitted Droplet precautions # Atrial fibrillation/hypertension/CHF exacerbation- Continue to monitor on telemetry flecainide 100 mg p.o. twice daily metoprolol succinate 100 mg p.o. every morning Xarelto 20 mg p.o. every afternoon furosemide 20 mg p.o. every morning Echo EF 55-60% Amlodipine 5mg qAM Admission and Anticipated Discharge Date Admission Date: June 23, 2023 Supervising Physician Co-Signing Physician Notes ATTESTATION I also saw the patient and confirmed cisneros portions of the history and exam. I agree with the impression and plan in the resident documentation, and as summa rized below. Patient continues to feel a bit better in terms of breathingbetter than yesterdaybut not at her baseline. Some mild dyspnea when getting up going to the bathroom. Biggest complaint is the intermittent coughing spells. EXAM 129/85, 87, 20, 36.5, 90% nasal cannula 2 L/min Alert and oriented Cardiovascular irregularly irregular, auscultated rate 90 Lungs with mid and expiratory wheeze throughout; improved air exchange compared to yesterday IMPRESSION & PLAN Acute on chronic respiratory failure with hypoxia secondary to COPD exacerbation in the setting of rhinovirus infection Continues to improve Continue IV methylprednisolone, consider transition to p.o. tomorrow if continues to improve Atrial fibrillation Rate somewhat higher end of low-grade like, but likely due to acute illness and steroid side effect Still acceptable, continue to monitor; suspect will improve with resolution of underlying illness and tapering of steroids Additional per resident documentation Subjective No acute events overnight. Patient seen and evaluated at bedside this morning. Continues to improve daily. Cough improving, still mildly productive with increasingly clear sputum. Remains tachycardic; tele reviewed persistent afib at ~100. Labs reviewed, largely unremarkable. Denies CP, SOB, abdominal pain, nausea, vomiting, and diarrhea. Endorses mild lightheadedness upon standing which resolves quickly. Patient hoping to attend rehab prior to returning home, would prefer [facility]. Review of Systems Review of Systems: reviewed, per HPI Physical Exam Physical Exam: General: patient resting comfortably, NAD, non-toxic in appearance, answers questions appropriately and follows commands. Skin: warm, dry, intact HEENT: NC/AT, anicteric sclera, conjunctiva without injection, moist mucus membranes, no JVD Heart: +S1/S2, regular, no m/r/g Lungs: equal air entry bilaterally, expiratory wheeze, prolonged expiratory phase Abd: +BS, soft, NT/ND Ext: warm, no clubbing/cyanosis or edema Neuro: nonfocal, speech intact, no facial droop, moving all extremities on command. Results & Data Results & Data Vital Signs (Past 12 Hours) Vital Signs Temp Pulse Pulse Pulse Resp BP BP 06/26/23 07:31 115 H 20 06/26/23 04:30 06/26/23 03:56 36.4 C L 97 H 18 149/86 H 06/25/23 22:39 36.4 C L 101 H 20 134/77 06/25/23 22:00 106 H 06/25/23 21:31 06/25/23 21:27 06/25/23 21:00 06/25/23 19:45 36.4 C L 92 H 20 145/80 H Pulse Ox O2 Del Method O2 Flow Rate 06/26/23 07:31 94 Nasal Cannula 1 06/26/23 04:30 94 Nasal Cannula 1 06/26/23 03:56 93 Room Air 06/25/23 22:39 92 Room Air 06/25/23 22:00 06/25/23 21:31 97 Room Air 06/25/23 21:27 98 Nasal Cannula 2 06/25/23 21:00 Nasal Cannula 1 06/25/23 19:45 97 Nasal Cannula 2
[2023-06-26] MEDS: METOPROLOL SUCC 50MG EXT REL TAB PO SCH (07:54)
[2023-06-26] MEDS: FLECAINIDE ACETATE 100 MG TABLET PO SCH ×2 (07:54→20:07)
[2023-06-26] MEDS: FUROSEMIDE 20 MG TAB PO SCH (07:54)
[2023-06-26] MEDS: PANTOprazole 40 MG TAB PO SCH (07:54)
[2023-06-26] MEDS: guaiFENesin 600 MG TABCR PO SCH ×2 (07:54→20:06)
[2023-06-26] MEDS: amLODIPine BESYLATE 5 MG TAB PO SCH (07:54)
[2023-06-26] MEDS: ATORVASTATIN 20 MG TAB PO SCH (07:54)
[2023-06-26] MEDS: GABAPENTIN 300 MG CAP PO SCH ×2 (07:55→20:08)
[2023-06-26] MEDS: ARTIFICIAL TEARS OP SCH ×2 (07:55→20:05)
[2023-06-26] MEDS: methylPREDNISolone 60 MG in SYRINGE 0 ML IV SCH ×2 (08:44→20:08)
[2023-06-26] MEDS: RIVAROXABAN 20 MG TAB PO SCH (17:14)
[2023-06-26] MEDS: LATANOPROST 0.005% OP SOLN 2.5 ML BTL OP SCH (20:05)
[2023-06-26] MEDS: CALCIUM 600MG + VIT D 400 IU TAB PO SCH (20:07)
[2023-06-26] MEDS: ASCORBIC ACID 500 MG TAB PO SCH (20:08)
[2023-06-26] MEDS: MONTELUKAST SODIUM 10 MG TABLET PO SCH (20:13)
[2023-06-27] MEDS: ALBUT/IPRATROP 3MG/0.5MG NEB 3 ML VIAL NEB PRN (04:00)
[2023-06-27] MEDS: AZITHROMYCIN 500 MG in DEXTROSE 5% 250 ML IV SCH (05:48)
[2023-06-27] MEDS: LEVOTHYROXINE SODIUM 75 MCG TABLET PO SCH (05:48)
[2023-06-27 05:55] LABS: Hematocrit (blood only) 37.8 % (37.0-47.0); Hemoglobin 12.5 g/dl (12.0-16.0); Immature Granulocytes # (auto) 0.08 K/uL (0.01-0.20); Immature Granulocytes % (auto) 0.9 %; Lymphocytes % (auto) 9.1 %; Mean Corpuscular Hemoglobin 28.8 pg (25.0-34.0); Mean Corpuscular Hgb Conc 33.1 g/dL (32.0-36.0); Mean Corpuscular Volume 87.1 fL (80.0-100.0); Mean Platelet Volume 10.4 fL (9.4-12.4); Monocytes # (auto) 0.24 K/uL (0.11-0.59); Monocytes % (auto) 2.7 %; Neutrophils % (auto) 87.3 %; Platelet Count 252 K/uL (130-400); RDW Standard Deviation 45.2 fL (36.4-46.3); Red Blood Count 4.34 M/uL (4.20-5.40); White Blood Count 8.82 K/ul (4.8-10.8)
[2023-06-27 06:14] LABS: Calcium 9.7 mg/dl (8.6-10.3); Creatinine Clr Calc Pharmacy 78.7 ml/min; Est GFR (African American) 87.5 ml/min; Est GFR (Non-African American) 75.5 ml/min; Potassium 4.3 mmol/L (3.5-5.1)
[2023-06-27] MEDS: ALBUT/IPRATROP 3MG/0.5MG NEB 3 ML VIAL NEB SCH ×4 (06:48→20:08)
[2023-06-27] MEDS: FLECAINIDE ACETATE 100 MG TABLET PO SCH ×2 (07:25→20:31)
[2023-06-27] MEDS: METOPROLOL SUCC 50MG EXT REL TAB PO SCH (07:26)
[2023-06-27] MEDS: ATORVASTATIN 20 MG TAB PO SCH (07:26)
[2023-06-27] MEDS: guaiFENesin 600 MG TABCR PO SCH ×2 (07:26→20:32)
[2023-06-27] MEDS: GABAPENTIN 300 MG CAP PO SCH ×2 (07:26→20:31)
[2023-06-27] MEDS: FUROSEMIDE 20 MG TAB PO SCH (07:26)
[2023-06-27] MEDS: ARTIFICIAL TEARS OP SCH ×2 (07:26→20:30)
[2023-06-27] MEDS: amLODIPine BESYLATE 5 MG TAB PO SCH (07:27)
[2023-06-27] MEDS: methylPREDNISolone 60 MG in SYRINGE 0 ML IV SCH (07:30)
--- NOTE | 2023-06-27 09:05 | Hospitalist Progress Note ---
Date of Service June 27, 2023 Assessment & Plan (1) Acute on chronic respiratory failure with hypoxia: (2) COPD exacerbation: (3) Rhinovirus infection: (4) Shortness of breath: (5) Obesity: (6) Obstructive sleep apnea: Plan # Acute on chronic respiratory failure with hypoxia 2/2 COPD exacerbation 2/2 rhinovirus infection DuoNebs 4 times daily, and every 2 hours as needed Azithromycin 500 mg IV every 24 hours Guaifenesin extended release 1200 mg p.o. every 12 hours Montelukast 10 mg p.o. at bedtime Nasal cannula oxygen, titrate to keep pulse ox around 94% Will start IV steroids due to slow improvement- 60mg methylpred BID (day 4) Prednisone 40mg PO daily x 1 day while admitted Droplet precautions # Atrial fibrillation/hypertension/CHF exacerbation- Continue to monitor on telemetry flecainide 100 mg p.o. twice daily metoprolol succinate 100 mg p.o. every morning Xarelto 20 mg p.o. every afternoon furosemide 20 mg p.o. every morning Echo EF 55-60% Amlodipine 5mg qAM Admission and Anticipated Discharge Date Admission Date: June 23, 2023 Supervising Physician Co-Signing Physician Notes ATTESTATION I also saw the patient and confirmed cisneros portions of the history and exam. I agree with the impression and plan in the resident documentation, and as summa rized below. Overall, continues to feel better. She is now on room air. 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 We discussed taking slower bites, sips of water in between; as an outpatient, she may benefit from a GI consult and EGD perhaps. This really is not new, just thought she would mention it today. EXAM 129/85, 87, 20, 36.5, 90% nasal cannula 2 L/min 132/84, 98, 36.7 C, 94% on room air alert and oriented Cardiovascular irregularly irregular. Lungs with mid and expiratory wheeze throughout; improved air exchange compared to yesterday IMPRESSION & PLAN Acute on chronic respiratory failure with hypoxia secondary to COPD exacerbation in the setting of rhinovirus infection Continues to improve Transition to oral prednisone PT recommended inpatient rehabilitation; patient hopeful to go to [facility] Atrial fibrillation Rate somewhat higher end of target rate, but likely due to acute illness and steroid side effect Still acceptable, continue to monitor; suspect will improve with resolution of underlying illness and tapering of steroids Additional per resident documentation Subjective No acute events overnight. Patient seen and evaluated at bedside this morning. Continues to improve daily. Cough improving, still mildly productive with increasingly clear sputum. Remains tachycardic; tele reviewed persistent afib now 80-90s. Labs reviewed, largely unremarkable. Now only using oxygen with sleep and ambulation Denies CP, SOB, abdominal pain, nausea, vomiting, and diarrhea. Patient hoping to attend rehab prior to returning home, would prefer [facility]. Review of Systems Review of Systems: reviewed, per HPI Physical Exam Physical Exam: General: patient resting comfortably, NAD, non-toxic in appearance, answers questions appropriately and follows commands. Skin: warm, dry, intact HEENT: NC/AT, anicteric sclera, conjunctiva without injection, moist mucus membranes, no JVD Heart: +S1/S2, regular, no m/r/g Lungs: equal air entry bilaterally, mild expiratory wheeze, prolonged expiratory phase Abd: +BS, soft, NT/ND Ext: warm, no clubbing/cyanosis or edema Neuro: nonfocal, speech intact, no facial droop, moving all extremities on command. Results & Data Results & Data Vital Signs (Past 12 Hours) Vital Signs Temp Pulse Pulse Resp BP Pulse Ox O2 Del Method 06/27/23 07:51 36.4 C L 109 H 20 131/77 93 Room Air 06/27/23 07:22 85 18 155/93 H 93 Room Air 06/27/23 07:20 91 H 20 86 L Room Air 06/27/23 04:00 85 20 93 Room Air 06/27/23 03:40 36.5 C 100 H 18 142/82 H 90 Room Air 06/26/23 22:35 36.5 C 87 18 137/87 92 Room Air 06/26/23 21:56 95 H
[2023-06-27] MEDS: RIVAROXABAN 20 MG TAB PO SCH (16:12)
[2023-06-27] MEDS ORDERED: ALBUT/IPRATROP 3MG/0.5MG NEB 3 ML VIAL ONE (19:19)
[2023-06-27] MEDS: LATANOPROST 0.005% OP SOLN 2.5 ML BTL OP SCH (20:31)
[2023-06-27] MEDS: CALCIUM 600MG + VIT D 400 IU TAB PO SCH (20:31)
[2023-06-27] MEDS: ASCORBIC ACID 500 MG TAB PO SCH (20:32)
[2023-06-27] MEDS: MONTELUKAST SODIUM 10 MG TABLET PO SCH (20:32)
[2023-06-27] MEDS ORDERED: predniSONE 20 MG TAB PO SCH (21:00)
[2023-06-28 05:25] LABS: Basophils # (auto) 0.01 K/uL (0.00-0.20); Basophils % (auto) 0.1 %; Hemoglobin 12.9 g/dl (12.0-16.0); Immature Granulocytes # (auto) 0.11 K/uL (0.01-0.20); Immature Granulocytes % (auto) 1.1 %; Lymphocytes # (auto) 0.83 K/uL (1.20-3.40); Lymphocytes % (auto) 8.2 %; Mean Corpuscular Hemoglobin 28.7 pg (25.0-34.0); Mean Corpuscular Hgb Conc 33.1 g/dL (32.0-36.0); Mean Corpuscular Volume 86.9 fL (80.0-100.0); Mean Platelet Volume 9.3 fL (9.4-12.4); Monocytes # (auto) 0.35 K/uL (0.11-0.59); Monocytes % (auto) 3.5 %; Neutrophils # (auto) 8.81 K/uL (1.40-6.50); Neutrophils % (auto) 87.1 %; Platelet Count 293 K/uL (130-400); RDW Coefficient of Variation 13.9 % (11.5-14.5); RDW Standard Deviation 44.6 fL (36.4-46.3); Red Blood Count 4.49 M/uL (4.20-5.40); White Blood Count 10.11 K/ul (4.8-10.8)
[2023-06-28 05:52] LABS: Anion Gap 3 (3-11); BUN Creatinine Ratio 32.6 (10-20); Blood Urea Nitrogen 29 mg/dl (6-23); Calcium 9.8 mg/dl (8.6-10.3); Carbon Dioxide 34 mmol/L (21-32); Chloride 97 mmol/L (98-107); Creatinine Clr Calc Pharmacy 68.1 ml/min; Est GFR (African American) 73.5 ml/min; Est GFR (Non-African American) 63.4 ml/min; Glucose 149 mg/dl (70-99(Fasting)); Sodium 134 mmol/L (136-145)
[2023-06-28] MEDS: AZITHROMYCIN 500 MG in DEXTROSE 5% 250 ML IV SCH (05:54)
[2023-06-28] MEDS: LEVOTHYROXINE SODIUM 75 MCG TABLET PO SCH (05:55)
[2023-06-28] MEDS ORDERED: ALBUT/IPRATROP 3MG/0.5MG NEB 3 ML VIAL ONE (07:04)
[2023-06-28] MEDS: ALBUT/IPRATROP 3MG/0.5MG NEB 3 ML VIAL NEB SCH ×4 (07:38→20:02)
[2023-06-28] MEDS: FLECAINIDE ACETATE 100 MG TABLET PO SCH ×2 (09:20→19:49)
[2023-06-28] MEDS: guaiFENesin 600 MG TABCR PO SCH ×2 (09:20→19:48)
[2023-06-28] MEDS: predniSONE 20 MG TAB PO SCH (09:20)
[2023-06-28] MEDS: GABAPENTIN 300 MG CAP PO SCH ×2 (09:20→19:47)
[2023-06-28] MEDS: FUROSEMIDE 20 MG TAB PO SCH (09:21)
[2023-06-28] MEDS: ATORVASTATIN 20 MG TAB PO SCH (09:21)
[2023-06-28] MEDS: amLODIPine BESYLATE 5 MG TAB PO SCH (09:21)
[2023-06-28] MEDS: ARTIFICIAL TEARS OP SCH ×2 (09:22→19:50)
[2023-06-28] MEDS: METOPROLOL SUCC 50MG EXT REL TAB PO SCH (09:22)
--- NOTE | 2023-06-28 12:44 | Hospitalist Progress Note ---
Date of Service June 28, 2023 Assessment & Plan (1) Acute on chronic respiratory failure with hypoxia: (2) COPD exacerbation: (3) Rhinovirus infection: (4) Shortness of breath: (5) Obesity: (6) Obstructive sleep apnea: Plan # Acute on chronic respiratory failure with hypoxia 2/2 COPD exacerbation 2/2 rhinovirus infection DuoNebs 4 times daily, and every 2 hours as needed Azithromycin 500 mg IV every 24 hours Guaifenesin extended release 1200 mg p.o. every 12 hours Montelukast 10 mg p.o. at bedtime Nasal cannula oxygen, titrate to keep pulse ox around 94% Will start IV steroids due to slow improvement- 60mg methylpred BID (day 4) Prednisone 40mg PO daily x 1 day while admitted Droplet precautions # Atrial fibrillation/hypertension/CHF exacerbation- Continue to monitor on telemetry flecainide 100 mg p.o. twice daily metoprolol succinate 100 mg p.o. every morning Xarelto 20 mg p.o. every afternoon furosemide 20 mg p.o. every morning Echo EF 55-60% Amlodipine 5mg qAM Admission and Anticipated Discharge Date Admission Date: June 23, 2023 Supervising Physician Co-Signing Physician Notes I personally examined the patient and verified all cisneros points of history and exam, discussed case, and agree with decision making with Dr Harden Feeling okay overall. Breathing feeling better. Just waiting on rehab. Vitals noted, in general she is awake and alert pleasant no distress. HEENT normocephalic atraumatic mucous membranes moist. Breathing unlabored no accessory muscle use good effort. Skin shows no rashes no pallor or icterus. Neuro without focal deficits. IMPRESSION & PLAN Acute on chronic respiratory failure with hypoxia secondary to COPD exacerbation in the setting of rhinovirus infection Overall improving, back to p.o. Steroids. Stable for skilled/rehab emphasis once bed available. She appears to have both obstructive and restrictive lung diseasechronically on Trelegy for obstructive. I wonder how much of her restrictive his LISSETH/OHSwould definitely want her following up about this in the outpatient setting. Atrial fibrillation rates reasonable, anticoagulated (xarelto) Additional per resident documentation Subjective No acute events overnight. Patient seen and evaluated at bedside this morning. Continues to improve daily. Cough improving, still mildly productive with increasingly clear sputum. Remains tachycardic; tele reviewed persistent afib now 80-90s. Labs reviewed, largely unremarkable. Now only using oxygen with sleep and ambulation Denies CP, SOB, abdominal pain, nausea, vomiting, and diarrhea. Patient hoping to attend rehab prior to returning home, would prefer [facility]. Review of Systems Review of Systems: reviewed, per HPI Physical Exam Physical Exam: General: patient resting comfortably, NAD, non-toxic in appearance, answers questions appropriately and follows commands. Skin: warm, dry, intact HEENT: NC/AT, anicteric sclera, conjunctiva without injection, moist mucus membranes, no JVD Heart: +S1/S2, regular, no m/r/g Lungs: equal air entry bilaterally, mild expiratory wheeze, prolonged expiratory phase Abd: +BS, soft, NT/ND Ext: warm, no clubbing/cyanosis or edema Neuro: nonfocal, speech intact, no facial droop, moving all extremities on command. Results & Data Results & Data Vital Signs (Past 12 Hours) Vital Signs Temp Pulse Pulse Resp BP Pulse Ox Pulse Ox 06/28/23 11:33 36.5 C 100 H 17 101/70 94 06/28/23 11:04 94 H 18 94 06/28/23 09:20 06/28/23 08:00 95 06/28/23 07:53 36.6 C 86 18 127/65 95 06/28/23 07:39 92 H 18 93 06/28/23 07:18 99 H 06/28/23 04:03 36.4 C L 99 H 18 130/82 96 O2 Del Method O2 Del Method O2 Flow Rate 06/28/23 11:33 Room Air 06/28/23 11:04 Room Air 06/28/23 09:20 Room Air 06/28/23 08:00 Room Air 06/28/23 07:53 Room Air 06/28/23 07:39 Room Air 06/28/23 07:18 06/28/23 04:03 Nasal Cannula 2
--- NOTE | 2023-06-28 13:19 | Billing Data ---
Date of Service June 28, 2023 Coding Level of Care Code 98254 SUB INP/OBS CARE
[2023-06-28] MEDS: RIVAROXABAN 20 MG TAB PO SCH (17:08)
[2023-06-28] MEDS: ASCORBIC ACID 500 MG TAB PO SCH (19:47)
[2023-06-28] MEDS: LATANOPROST 0.005% OP SOLN 2.5 ML BTL OP SCH (19:48)
[2023-06-28] MEDS: MONTELUKAST SODIUM 10 MG TABLET PO SCH (19:49)
[2023-06-28] MEDS: CALCIUM 600MG + VIT D 400 IU TAB PO SCH (19:49)
[2023-06-29 05:16] LABS: BUN Creatinine Ratio 34.9 (10-20); Basophils # (auto) 0.02 K/uL (0.00-0.20); Basophils % (auto) 0.2 %; Calcium 9.3 mg/dl (8.6-10.3); Creatinine Clr Calc Pharmacy 73.5 ml/min; Eosinophils # (auto) 0.03 K/uL (0.00-0.50); Eosinophils % (auto) 0.3 %; Est GFR (African American) 79.9 ml/min; Hematocrit (blood only) 39.2 % (37.0-47.0); Hemoglobin 12.5 g/dl (12.0-16.0); Immature Granulocytes # (auto) 0.11 K/uL (0.01-0.20); Immature Granulocytes % (auto) 1.1 %; Lymphocytes # (auto) 2.54 K/uL (1.20-3.40); Lymphocytes % (auto) 24.4 %; Mean Corpuscular Hgb Conc 31.9 g/dL (32.0-36.0); Mean Corpuscular Volume 87.7 fL (80.0-100.0); Mean Platelet Volume 9.5 fL (9.4-12.4); Monocytes # (auto) 0.84 K/uL (0.11-0.59); Monocytes % (auto) 8.1 %; Neutrophils # (auto) 6.87 K/uL (1.40-6.50); Neutrophils % (auto) 65.9 %; Platelet Count 277 K/uL (130-400); RDW Coefficient of Variation 13.7 % (11.5-14.5); RDW Standard Deviation 43.9 fL (36.4-46.3); Red Blood Count 4.47 M/uL (4.20-5.40); White Blood Count 10.41 K/ul (4.8-10.8)
[2023-06-29] MEDS: LEVOTHYROXINE SODIUM 75 MCG TABLET PO SCH (06:00)
[2023-06-29] MEDS: AZITHROMYCIN 500 MG in DEXTROSE 5% 250 ML IV SCH (06:05)
[2023-06-29] MEDS: ALBUT/IPRATROP 3MG/0.5MG NEB 3 ML VIAL NEB SCH ×2 (07:34→10:57)
[2023-06-29] MEDS: ATORVASTATIN 20 MG TAB PO SCH (08:42)
[2023-06-29] MEDS: FLECAINIDE ACETATE 100 MG TABLET PO SCH (08:43)
[2023-06-29] MEDS: predniSONE 20 MG TAB PO SCH (08:43)
[2023-06-29] MEDS: guaiFENesin 600 MG TABCR PO SCH (08:43)
[2023-06-29] MEDS: FUROSEMIDE 20 MG TAB PO SCH (08:43)
[2023-06-29] MEDS: amLODIPine BESYLATE 5 MG TAB PO SCH (08:43)
[2023-06-29] MEDS: METOPROLOL SUCC 50MG EXT REL TAB PO SCH (08:44)
[2023-06-29] MEDS: GABAPENTIN 300 MG CAP PO SCH (08:44)
[2023-06-29] MEDS: ARTIFICIAL TEARS OP SCH (08:44)
--- NOTE | 2023-06-29 09:13 | Discharge Summary ---
Date of Service June 29, 2023 Admission HPI Per Admitting Provider Chief Complaint: The patient presents to the emergency department with complaint of shortness of breath over the last 48 hours, necessitating her to change her primarily nighttime use of oxygen to wearing it continuously over the past 24 hours Primary Care Provider: CALIXTO Pavon The patient is a 77-year-old female with a past medical history including mixed urinary incontinence, poor balance, autonomic neuropathy, asthma, atrial fibrillation, peripheral venous insufficiency, SSS, right bundle branch block, restrictive lung disease, cellulitis of left lower extremity with healed wound as of 03-22-2023, LISSETH, COPD, long-term anticoagulant use, hypertension, and CHF. The patient presents to the emergency department with symptoms as noted above. Workup in the emergency department included a BioFire test positive for rhinovirus/enterovirus. From the EMS en route, she received a DuoNeb and albuterol treatment. From the ED she received furosemide 40 mg IV, and Tylenol 1 g IV. She reportedly had a urine output of 1 L while in the ED Admission Exam Per Admitting Provider The patient is awake, alert and oriented 3, looks fatigued, normocephalic and atraumatic, lying in bed and in no acute distress. HEENT--PERRL, EOMI, mucous membranes and oropharynx dry. Neck--supple. No JVD. No bruits. Thyroid normal, trachea midline, no adenopathy. Heart--normal S1 and S2. No murmurs, rubs or gallops. Lungs-coarse breath sounds with wheezes bilaterally. No respiratory distress, no accessory muscle use. Abdomen--normal bowel sounds and soft. Nontender. Nondistended. Morbidly obese Extremities--1+ bilateral pretibial pitting edema Dermatologic--normal skin turgor, normal color, no abnormal lymph nodes, no rash. Neurologic--cranial nerves II through XII grossly intact. Rheumatologic--normal range of motion. Psychiatric--normal affect. Principal Diagnosis COPD exacerbation Discharge Exam General: patient resting comfortably, NAD, non-toxic in appearance, answers questions appropriately and follows commands. Skin: warm, dry, intact HEENT: NC/AT, anicteric sclera, conjunctiva without injection, moist mucus membranes, no JVD Heart: +S1/S2, regular, no m/r/g Lungs: equal air entry bilaterally, mild expiratory wheeze Abd: +BS, soft, NT/ND Ext: warm, no clubbing/cyanosis or edema Neuro: nonfocal, speech intact, no facial droop, moving all extremities on command. Discharge Data Allergies Allergy/AdvReac Type Severity Reaction Status Date / Time pecan nut Allergy Severe TONGUE Verified 06/22/23 20:16 SWELLS house dust Allergy Intermediate SNEEZING, Verified 06/22/23 20:16 CONGESTION Sulfa (Sulfonamide AdvReac Intermediate YEAST Verified 06/22/23 20:16 Antibiotics) INFECTION Consultations 06/22/23 23:33 ED Decision to Admit Stat Hospital Course (1) Acute on chronic respiratory failure with hypoxia: (2) COPD exacerbation: (3) Rhinovirus infection: (4) Shortness of breath: (5) Obesity: (6) Obstructive sleep apnea: Plan # Acute on chronic respiratory failure with hypoxia 2/2 COPD exacerbation 2/2 rhinovirus infection Azithromycin 500 mg IV every 24 hours until discharge Guaifenesin extended release 1200 mg p.o. every 12 hours while inpatient, 600mg at discharge Montelukast 10 mg p.o. at bedtime Prednisone 40mg PO daily until discharge Methylpred 60mg BID x4 days Droplet precautions # Atrial fibrillation/hypertension/CHF exacerbation- flecainide 100 mg p.o. twice daily metoprolol succinate 100 mg p.o. every morning Xarelto 20 mg p.o. every afternoon furosemide 20 mg p.o. every morning Echo EF 55-60% Amlodipine 5mg qAM Total Time Total Time Spent Total Time Spent (In Minutes): See attending documentation Discharge Plan Discharge Items Patient Disposition: Transfer Intermediate Fac Reason For Visit: ACUTE RESP FAILURE W/ HYPOXIA, RHINOVIRUS Discharge Diagnosis: COPD exacerbation 2/2 rhinovirus Activity: As commented below Activity Comment: Continue to work with physical therapy and resume activity as tolerated Non-emergency contact: Primary Care Provider Call non-emergency contact if: you have any medication questions, your symptoms worsen and you have a fever Follow-up/Referrals: Ronda Adamson CRNP [Primary Care Provider] - 07/05/23 2:00 pm Diet: Heart Healthy Addtl Attending Provider Instructions: You were admitted to the hospital for shortness of breath. You were treated with steroids, breathing treatments, mucolytics, and antibiotics to decrease the inflammation in your lungs and help you to breath better. While you were here we also evaluated to make sure that you were not having a heart attack or decomp ensation of your heart failure. The tests showed that your symptoms were primarily due to your COPD. Your heart remained in atrial fibrillation while you were admitted and no adjustments were made to the treatment. A discharge summary will be sent to your primary care physician to ensure continuity of care. Please bring this discharge summary with you to your next office appointment so that your provider can review it at that time. Follow-up appointments: Make a follow-up appointment with your PCP within the next week. It is very important that you follow up with them shortly after discharge from the hospital. Keep all your follow-up appointments as already scheduled. If you cannot make an appointment, notify your provider. Medications: Your medication list has been reviewed and reconciled upon discharge to ensure accuracy and continuity of care. An updated list of all your medications is included with your hospital discharge paperwork. Please review this list closely, and make note of any changes. If you have any issues filling these prescriptions, please call [phone] and ask to leave a message for Dr. Prasanna Harden. Take your medications as instructed; do not skip a dose of your medicines. Make sure all of your doctors know every medicine you are taking (including lvha-pet-svqkdzo medicines, vitamins, and supplements). Call your primary care provider before taking any new medicines (including bxfd-bpz-ivukfkb medicines, vitamins, and supplements), because some of these may interact with your current medications, or may make your symptoms worse. Tell your primary care provider if you cannot afford your medications. CONTACT YOUR PRIMARY CARE PROVIDER if you experience any of the following: Increased shortness of breath or wheezing Fever Difficulty following your treatment plan, or difficulty taking medications CALL 911 OR GO TO THE EMERGENCY DEPARTMENT if you experience any of the following: Sudden, severe abdominal pain or nausea/vomiting Severe chest pain, or chest pain that radiates (moves) to your jaw or arm Sudden, severe shortness of breath or difficulty breathing Thank you for allowing us to participate in your care. Pending Studies at Discharge: No Stand-Alone Forms: My [employer] Skilled Items Patient informed of condition?: Yes DNR: No Discharge Level of Care: Skilled Communicable Disease: No Discharge Prognosis: Stable Lines: None Urinary Catheter: No Medications and DC Order Prescriptions: Continued (DME) nebulizer accessories Misc See Rx Instructions .ROUTE .MEDSUPPLY Qty: 1 0RF Rx Instructions: NEBULIZER TUBING. (DME) nebulizers Misc See Rx Instructions .ROUTE .MEDSUPPLY Qty: 1 0RF Rx Instructions: Nebulizer and nebulizer set up. DX: J44.9 (DME) compression socks, x-large Misc See Rx Instructions .ROUTE .MEDSUPPLY Qty: 2 0RF Rx Instructions: SIZE X-LARGE WITHOUT TOES R60.9 I87.2 (DME) miscellaneous medical supply Misc See Rx Instructions .ROUTE .MEDSUPPLY Qty: 1 0RF Rx Instructions: OXYGEN TUBING J45.909 J98.4 G47.34 (DME) nebulizer accessories Misc See Rx Instructions .ROUTE .MEDSUPPLY Qty: 1 0RF Rx Instructions: NEBULIZER TUBING R06.00 J98.4 J45.909 ([facility] [place]) nebulizer accessories Kit See Rx Instructions .Route Qty: 1 0RF Rx Instructions: As directed furosemide 20 mg tablet 20 mg PO QAM Qty: 90 3RF Rx Instructions: TAKE 1 TABLET BY MOUTH EVERY MORNING levalbuterol HCl 1.25 mg/3 mL solution for nebulization 1.25 mg inhalation Q4H PRN (Reason: Shortness Of Breath Or Wheezing) Qty: 1620 1RF Rx Instructions: PER PT "USE 3-4 TIMES DAILY" amlodipine 5 mg tablet 5 mg PO QAM Qty: 90 3RF gabapentin 300 mg capsule 300 mg PO BID Qty: 180 3RF metoprolol succinate 100 mg capsule,sprinkle,ER 24hr 100 mg PO QAM Qty: 90 3RF nystatin 100,000 unit/gram cream 1 applic TOP TID PRN (Reason: Skin Irritation) Qty: 30 1RF Patient Comments: pt stated she only uses the cream Rx Instructions: alternate application with powder montelukast 10 mg tablet 10 mg PO HS Qty: 90 3RF levothyroxine 75 mcg tablet 75 mcg PO QAM Qty: 90 3RF ipratropium bromide 0.02 % solution 2.5 ml INH Q6H PRN (Reason: shortness of breath or wheezing) Qty: 1620 3RF Rx Instructions: PER PT "USE 3-4 TIMES DAILY rivaroxaban 20 mg tablet 20 mg PO QPM Qty: 90 3RF (DME) Shower Chair Misc See Rx Instructions .Route Qty: 1 0RF Rx Instructions: Bariatric shower chair calcium carbonate-vitamin D3 500 mg(1,250mg) -200 unit tablet 1 tab PO QPM Patient Comments: evening cyclosporine [Restasis] 0.05 % dropperette 1 drops ophthalmic (eye) BID docusate sodium 100 mg capsule 100 mg PO QAM PRN (Reason: Constipation) latanoprost 0.005 % drops 1 drops OP HS ascorbic acid (vitamin C) [Vitamin C] 500 mg Tablet 500 mg PO QPM Patient Comments: noon acetaminophen [Acetaminophen Extra Strength] 500 mg Tablet 1,000 mg PO Q6H PRN (Reason: Pain) flecainide 100 mg tablet 100 mg PO BID Rx Instructions: PER PT "ON HOLD PER MD". guaifenesin [Mucinex] 600 mg tablet extended release 12hr 600 mg PO BID Rx Instructions: OTC atorvastatin 20 mg tablet 20 mg PO QAM Patient Comments: around noon Discharge Orders: Discharge Order (Routine); Ordered 06/29/23 Ordered By: Prasanna Harden Admission Data Admit Date/Time: 06/23/23 01:27 Attending Provider: Mihir Bhatia Admit Provider: Zafar Crouch Primary Care Provider: Ronda Adamson Other Prov[facility]: Zafar Crouch; [facility] Other Interventions: Discharge Summary Assessment (RN) Last Done: 06/29/23 10:41 Supervising Physician Co-Signing Physician Notes I personally examined the patient and verified all cisneros points of history and exam, discussed case, and agree with decision making with Dr Harden Feeling okay overall. Breathing feeling better. For center care today. Vitals noted, in general she is awake and alert pleasant no distress. HEENT normocephalic atraumatic mucous membranes moist. Breathing unlabored no accessory muscle use good effort. Skin shows no rashes no pallor or icterus. Neuro without focal deficits. IMPRESSION & PLAN Acute on chronic respiratory failure with hypoxia secondary to COPD exacerbation in the setting of rhinovirus infection Overall improving, back to p.o. Steroids. Stable for skilled/rehab emphasis today. She appears to have both obstructive and restrictive lung dise asechronically on Trelegy for obstructive. I wonder how much of her restrictive his LISSETH/OHSwould definitely want her following up about this in the outpatient setting. Atrial fibrillation rates reasonable, anticoagulated (xarelto) Additional per resident documentation
--- NOTE | 2023-06-29 18:24 | Billing Data ---
Date of Service June 29, 2023 Coding Level of Care Code 97471 IN/OBS DISCH 30 MIN/LESS
== END 2023-06-29 11:19 | DRG 189 ==
LOC: ED 19:16 → EDINP 06-23 01:27 → SUATTDRO 06-23 01:27 → 2W 06-23 01:42

== ENCOUNTER 2024-03-01 10:25 | Observation (INO) ==
--- NOTE | 2024-03-01 11:23 | XRay Report ---
XR chest 1V portable CLINICAL HISTORY: Chest pain, nonspecific COMPARISON STUDY: Chest radiograph June 22, 2023. FINDINGS: An old, healed proximal diaphyseal left humeral fracture is incidentally noted. Lung volume s are normal. Lungs are clear. There is no pneumothorax or pleural effusion. Cardiomegaly is unchange d. Mediastinal contours are normal. There is no evidence for pulmonary edema. IMPRESSION: No acute cardiopulmonary findings. Cardiomegaly. ACT 112: Negative or not required by law. Electronically signed by: Chucho Mcclendon M.D. 03/01/2024 11:22 AM
--- NOTE | 2024-03-01 11:26 | Emergency Department Note ---
Impression & Plan Hypoxia, Arm pain, Chest wall pain ED Provider Note NAME: NIRMAL RODRIGUEZ AGE: 78 SEX: F : 1945 ARRIVES VIA: Ambulance INFORMANT: Patient ED PROVIDER(S): Mihir Yin DO CHIEF COMPLAINT: Left shoulder pain HPI: Patient is a 78-year-old female who presents to the ER with a past medical history of diabetes, COPD, asthma, sick sinus syndrome, restrictive lung disease, metabolic cyst drome, morbid obesity, CHF, chronically on rivaroxaban who presents to the ER for left shoulder pain referred in. Upon arrival she is found to be hypoxic at 84% on room air. She was placed on nasal cannula. Left shoulder pain has been present for the past month. She notes its significantly more painful to move and it has been this way for 2 weeks. She notes that she can barely lift it secondary to the pain. Denies any other weakness or numbness. No dysuria, urgency, or frequency. No other exacerbating or remitting factors. ADDITIONAL HISTORY OBTAINED: Per HPI Chronic Medical/Social Conditions Affecting Care: Per HPI PAST MEDICAL HISTORY:See Below PAST SURGICAL HISTORY:See Below FAMILY HISTORY:See Below SOCIAL HISTORY:See Below HOME MEDICATIONS:See Below ALLERGIES:See Below VITALS:See Below PHYSICAL EXAMINATION: GENERAL: Sitting up in bed, alert, well appearing, well nourished, no distress, non-toxic EYE EXAM: normal conjunctiva. PERRL and EOM's grossly intact. OROPHARYNX: no exudate, no erythema, lips, buccal mucosa, and tongue normal and mucous membranes are moist NECK: supple, no nuchal rigidity, no adenopathy, non-tender CHEST: Reproducible pain across the upper anterior chest wall with range of motion of the shoulder LUNGS: Clear to auscultation. Normal chest wall mechanics HEART: no murmurs, S1 normal and S2 normal ABDOMEN: abdomen soft, non-tender, normo-active bowel sounds, no masses, no rebound or guarding. UPPER EXTREMITIES: Grasp as well as abduction of bilateral digits, flexion extension of the wrist and elbow is intact and 5 out of 5. Significant pain with abduction of the left humerus more than 20 degrees. No issues with range of motion of the right humerus. LOWER EXTREMITIES: No pitting edema. NEURO EXAM: Normal sensorium, cranial nerves II-XII intact, normal speech, pain with range of motion as described above in upper extremities, no weakness of legs. MEDICAL DECISION MAKING: Patient is a 78-year-old female referred in for possible stroke. She notes that her left arm weakness has been present for over 2 weeks and has been constant. On exam this does appear to be consistent/secondary to pain. She was found to be hypoxic at 84% on room air was placed on 2 L nasal cannula. With a history of asthma and COPD she was given steroids and neb treatments. She is on a NOAC and consequently PE was not pursued. Labs showed no significant leukocytosis or anemia. BMP with LFTs bilirubin was unremarkable. Troponin was negative. Lipase normal. Chest x-ray clean. CT of the head was negative. Patient was given Toradol and steroids and did feel better after steroids and had slight increased range of motion of the shoulder. She was updated bedside discussed with the hospitalist admitted for further workup. Of note some of the pain from the left shoulder does radiate across the chest intermittently and I do favor that the pain is also referred to musculoskeletal in nature as well. Consults/Care Managements Discussions: Per MDM Triage Nursing notes reviewed. Limited review of prior medical records performed Vital Signs: reviewed and remarkable for hypoxia Differential diagnosis: Differential diagnoses includes but is not limited to pneumonia, bronchitis, COPD/Asthma exacerbation, pneumothorax, pulmonary embolism, congestive heart failure, acute coronary syndrome ER treatment provided: See below Diagnostics interpreted by me include EKG and cardiac monitoring as listed below: -Cardiac Monitoring: An order was placed for continuous cardiac monitoring. The monitor shows a rate of 90 with sinus rhythm. -ECG: Sinus rhythm rate 83 Normal axis Right bundle branch block QTc 479 -Laboratory studies:Interpreted by me as stated above in MDM and shown below. Imaging studies: Xrays: As interpreted by me: Portable AP upright 1 view of the chest shows no focal M-Trate CTs show: CT of the head was negative per radiology Procedures:none Critical Care: None Past Med/Surg History Problem List (Updated 03/01/24 @ 16:04 by Mihir Yin DO) Chest wall pain (Acute) Arm pain (Acute) Hypoxia (Acute) Hypoxia Left arm pain (Acute) Abnormal ankle brachial index Venous ulcer of left leg (Acute) Type 2 diabetes mellitus with obesity Osteoporosis Prolapse of female pelvic organs Mixed incontinence Cystocele with prolapse Poor balance Hypothyroid (Chronic) Autonomic neuropathy (Chronic 09/03/12) Atrial fibrillation (Acute) Hyperlipemia (Chronic) Asthma SSS (sick sinus syndrome) RBBB (right bundle branch block) Dermatophytosis of the trunk Diabetic neuropathy Restrictive lung disease Right lumbar radiculopathy Venous stasis ulcer of left lower leg with edema of left lower leg (Acute) Chronic venous insufficiency of lower extremity (Chronic) History of right knee joint replacement Obstructive sleep apnea (Acute) Metabolic syndrome Morbid obesity Slow transit constipation Chronic venous insufficiency Vertigo Balance disorder Hammertoe of right foot (Chronic) GERD (gastroesophageal reflux disease) COPD (chronic obstructive pulmonary disease) Anticoagulant long-term use xarelto daily Left knee DJD Urinary incontinence Nocturnal hypoxemia Hypertension CHF (congestive heart failure) Medical History COPD exacerbation Acute on chronic respiratory failure with hypoxia Rhinovirus infection Elevated brain natriuretic peptide (BNP) level Shortness of breath History of skin ulcer of lower extremity lt leg, currently has healing wounds/ulcers, being treated in [facility] wound care Morbid obesity with BMI of 45.0-49.9, adult History of intestinal obstruction History of gout Hoarseness of voice Hypothyroidism Prediabetes diet controlled-"i'm not very good at following it" History of basal cell carcinoma Glaucoma PVD (peripheral vascular disease) Osteoarthritis HLD (hyperlipidemia) On home oxygen therapy 2 lpm qHS and prn Peripheral neuropathy Sacral fracture As seen on MRI 01/25/2020, occult right hemisacrum fracture Asthma inhaler daily/prn, nebulizer prn Afib on xarelto; follows with Dr. Zimmer Surgical History Cataract extraction status, right eye Hx of cataract extraction LT. Status post sclerotherapy of varicose veins (~11/06/20) @ [facility] History of tooth extraction History of intestinal surgery S/P thyroid biopsy History of basal cell carcinoma (BCC) excision Status post endovenous radiofrequency ablation of saphenous vein History of endovenous ablation of incompetent vein radiofrequency. Type of vein not specified in CCD History of total knee arthroplasty Rt History of hernia repair History of decompression of median nerve at carpal tunnel (neuroplasty) History of total abdominal hysterectomy bso History of laparoscopic cholecystectomy Family History Father Skin cancer Pulmonary embolism Father Gout Other No family history of adverse response to anesthesia Denies family history of Ovarian cancer Prostate cancer Myocardial infarction Breast cancer Lung cancer Colorectal cancer Social History (Updated 01/19/24 @ 11:01 by Jaclyn Chu RN) Smoking Status: Never smoker Second Hand Exposure: No; Do You Dip or Chew Tobacco: No; Hx Alcohol Use: No Hx Substance Use: No Preferred Language: Czech Communication Ability: Effective Visual Impairment: Limited Hearing Ability: Normal 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 ONE CHILD IN [place]. AND ANOTHER LIVES ABOUT AN HOUR AND 1/2 AWAY FROM . Feels Safe at Home: Yes Safety Concerns Comment: Considered Life Alert but has her phone with her. Childhood Exposure to Second-Hand Smoke: No Diet: low salt caffeine: Yes (1-2 cups in am per day.) during the past year weight has: remained stable Dental Care, Regularly: Yes Physical Activity Frequency: Does not Exercise Seatbelt Use: always Sunscreen Use: Yes Do you think of yourself as: straight/heterosexual Gender Identity: Female Assistive Devices: Cane, Oxygen - at Night and Walker Allergies Allergies Allergy/AdvReac Type Severity Reaction Status Date / Time pecan nut Allergy Severe TONGUE Verified 03/01/24 15:56 SWELLS house dust Allergy Intermediate SNEEZING, Verified 03/01/24 15:56 CONGESTION Sulfa (Sulfonamide AdvReac Intermediate YEAST Verified 03/01/24 15:56 Antibiotics) INFECTION Home Meds Home Medications Medication Instructions Recorded Confirmed calcium carbonate 500 mg-vitamin 1 tab PO QPM 01/14/19 03/01/24 D3 5 mcg (200 unit) tablet cyclosporine 0.05 % eye drops in a 1 drops ophthalmic (eye) BID 01/14/19 03/01/24 dropperette (Restasis) docusate sodium 100 mg capsule 100 mg PO QAM PRN Constipation 01/14/19 03/01/24 latanoprost 0.005 % eye drops 1 drops ophthalmic (eye) HS 01/14/19 03/01/24 ascorbic acid (vitamin C) 500 mg 500 mg PO QPM 09/15/22 03/01/24 tablet (Vitamin C) guaifenesin 600 mg tablet, 600 mg PO BID 09/15/22 03/01/24 extended release 12 hr (Mucinex) benzonatate 200 mg capsule 200 mg PO TID PRN 07/09/23 03/01/24 Previous Rx's Medication Instructions Recorded nebulizer accessories #1 ea 03/26/20 nebulizers #1 ea 09/09/20 compression socks, x-large #2 ea 11/07/20 miscellaneous medical supply #1 ea 11/07/20 Shower Chair #1 ea 01/22/22 nebulizer accessories #1 ea 01/27/22 rivaroxaban 20 mg tablet 20 mg PO QPM #90 tabs 03/04/23 nystatin 100,000 unit/gram topical 1 applic topical TID PRN Skin 03/16/23 cream Irritation #30 grams nebulizer accessories #1 ea 07/12/23 sodium chloride, sodium See Rx Instructions .Route 07/19/23 bicarb-nasal rinse squeeze bottle .COMPLEX #50 ea with packet (Neilmed Sinus Rinse Complete with packet) furosemide 20 mg tablet 20 mg PO QAM #90 tabs 08/04/23 walker #1 ea 08/30/23 alendronate 70 mg tablet (Fosamax) 70 mg PO .q7days 3 months #12 tabs 09/07/23 cimetidine 400 mg tablet 400 mg PO DAILY 90 days #90 tabs 09/07/23 azithromycin 250 mg tablet 250 mg PO MOWEFR 30 days #18 tabs 09/08/23 pantoprazole 40 mg tablet,delayed 40 mg PO QAM #90 tabs 09/17/23 release amlodipine 5 mg tablet 5 mg PO QAM #90 tabs 10/11/23 levalbuterol HCl 1.25 mg/3 mL 1.25 mg (3 mL) inhalation Q4H PRN 10/11/23 solution for nebulization Shortness Of Breath Or Wheezing #1,620 mL arformoterol 15 mcg/2 mL solution 2 ml inhalation BID #120 mL 12/14/23 for nebulization (Brovana) metoprolol succinate 100 mg 100 mg PO QAM #90 ea 12/27/23 capsule sprinkle, ext. release 24 hr chlorpheniramine maleate 4 mg 4 mg PO Q12H 90 days #180 tabs 01/04/24 tablet (Allergy Relief (chlorpheniramine)) metformin 500 mg tablet 500 mg PO DAILY #30 tabs 02/06/24 cephalexin 500 mg capsule 500 mg PO TID 10 days #30 caps 02/21/24 gentamicin 0.1 % topical ointment 1 applic topical DAILY 2 weeks #30 02/21/24 grams CPAP Machine #1 ea 02/22/24 atorvastatin 20 mg tablet 20 mg PO QAM 90 days #90 tabs 02/22/24 budesonide 0.5 mg/2 mL suspension 0.5 mg (2 mL) inhalation BID #120 02/22/24 for nebulization mL fluticasone propionate 50 1 spray intranasal BID #18.2 mL 02/22/24 mcg/actuation nasal spray,suspension (Flonase Allergy Relief) gabapentin 300 mg capsule 300 mg PO BID #180 caps 02/22/24 levothyroxine 75 mcg tablet 75 mcg PO QAM #90 tabs 02/22/24 montelukast 10 mg tablet 10 mg PO HS #90 tabs 02/22/24 Results & Data (ED) Vital Signs Vital Signs - 24 hr 03/01/24 10:15 03/01/24 10:35 03/01/24 10:42 Temperature 36.8 C Temperature Source Oral Pulse Rate 90 89 Pulse Rate [Apical] Pulse Rate from SpO2 Sensor 88 Pulse Rhythm Regular Pulse Strength Normal Respiratory Rate 22 18 Respiratory Effort / Characteristics Non-Labored Spontaneous Respiratory Depth Normal Respiratory Pattern Regular Blood Pressure 131/66 131/66 Blood Pressure [Right Arm] Blood Pressure Mean 87 82 Blood Pressure Mean [Right Arm] Blood Pressure Position Sitting Blood Pressure Position [Right Arm] Pulse Oximetry 86 L 98 Oxygen Delivery Method Room Air Oxygen Flow Rate Sepsis Recent Fever Within 48 Hours No Sepsis New/Unexplained Change in Mental Status No Sepsis Action Taken by Nursing No Action Required 03/01/24 10:48 03/01/24 10:56 03/01/24 11:09 Temperature Temperature Source Pulse Rate 78 86 Pulse Rate [Apical] Pulse Rate from SpO2 Sensor 88 Pulse Rhythm Regular Pulse Strength Respiratory Rate 22 18 Respiratory Effort / Characteristics Respiratory Depth Respiratory Pattern Blood Pressure 134/68 Blood Pressure [Right Arm] Blood Pressure Mean 90 Blood Pressure Mean [Right Arm] Blood Pressure Position Blood Pressure Position [Right Arm] Pulse Oximetry 86 L 94 91 Oxygen Delivery Method Nasal Cannula Nasal Cannula Oxygen Flow Rate 2 2 Sepsis Recent Fever Within 48 Hours Sepsis New/Unexplained Change in Mental Status Sepsis Action Taken by Nursing 03/01/24 11:30 03/01/24 11:51 03/01/24 11:51 Temperature Temperature Source Pulse Rate 74 74 Pulse Rate [Apical] Pulse Rate from SpO2 Sensor 81 Pulse Rhythm Pulse Strength Respiratory Rate 22 25 H Respiratory Effort / Characteristics Respiratory Depth Respiratory Pattern Blood Pressure 146/81 H Blood Pressure [Right Arm] Blood Pressure Mean 98 Blood Pressure Mean [Right Arm] Blood Pressure Position Blood Pressure Position [Right Arm] Pulse Oximetry 96 Oxygen Delivery Method Oxygen Flow Rate Sepsis Recent Fever Within 48 Hours Sepsis New/Unexplained Change in Mental Status Sepsis Action Taken by Nursing 03/01/24 12:00 03/01/24 12:06 03/01/24 12:20 Temperature Temperature Source Pulse Rate 79 81 Pulse Rate [Apical] Pulse Rate from SpO2 Sensor 77 Pulse Rhythm Pulse Strength Respiratory Rate 21 Respiratory Effort / Characteristics Respiratory Depth Respiratory Pattern Blood Pressure 136/76 Blood Pressure [Right Arm] Blood Pressure Mean 111 Blood Pressure Mean [Right Arm] Blood Pressure Position Blood Pressure Position [Right Arm] Pulse Oximetry 100 Oxygen Delivery Method Oxygen Flow Rate Sepsis Recent Fever Within 48 Hours Sepsis New/Unexplained Change in Mental Status Sepsis Action Taken by Nursing 03/01/24 12:30 03/01/24 12:30 03/01/24 12:57 Temperature Temperature Source Pulse Rate 76 97 H Pulse Rate [Apical] Pulse Rate from SpO2 Sensor 83 94 H Pulse Rhythm Pulse Strength Respiratory Rate 16 13 Respiratory Effort / Characteristics Respiratory Depth Respiratory Pattern Blood Pressure 126/69 Blood Pressure [Right Arm] Blood Pressure Mean 78 Blood Pressure Mean [Right Arm] Blood Pressure Position Blood Pressure Position [Right Arm] Pulse Oximetry 99 94 Oxygen Delivery Method Oxygen Flow Rate Sepsis Recent Fever Within 48 Hours Sepsis New/Unexplained Change in Mental Status Sepsis Action Taken by Nursing 03/01/24 13:01 03/01/24 13:21 03/01/24 13:30 Temperature Temperature Source Pulse Rate 98 H Pulse Rate [Apical] Pulse Rate from SpO2 Sensor 100 H Pulse Rhythm Pulse Strength Respiratory Rate 21 Respiratory Effort / Characteristics Respiratory Depth Respiratory Pattern Blood Pressure 138/86 147/80 H Blood Pressure [Right Arm] Blood Pressure Mean 101 104 Blood Pressure Mean [Right Arm] Blood Pressure Position Blood Pressure Position [Right Arm] Pulse Oximetry 94 Oxygen Delivery Method Oxygen Flow Rate Sepsis Recent Fever Within 48 Hours Sepsis New/Unexplained Change in Mental Status Sepsis Action Taken by Nursing 03/01/24 13:36 03/01/24 13:39 03/01/24 14:00 Temperature Temperature Source Pulse Rate 97 H 96 H Pulse Rate [Apical] Pulse Rate from SpO2 Sensor 104 H 94 H Pulse Rhythm Pulse Strength Respiratory Rate 18 15 Respiratory Effort / Characteristics Respiratory Depth Respiratory Pattern Blood Pressure 141/73 H Blood Pressure [Right Arm] Blood Pressure Mean 95 Blood Pressure Mean [Right Arm] Blood Pressure Position Blood Pressure Position [Right Arm] Pulse Oximetry 92 94 Oxygen Delivery Method Oxygen Flow Rate Sepsis Recent Fever Within 48 Hours Sepsis New/Unexplained Change in Mental Status Sepsis Action Taken by Nursing 03/01/24 14:15 03/01/24 14:30 03/01/24 14:30 Temperature Temperature Source Pulse Rate 85 85 Pulse Rate [Apical] Pulse Rate from SpO2 Sensor 85 92 H Pulse Rhythm Pulse Strength Respiratory Rate 20 20 Respiratory Effort / Characteristics Respiratory Depth Respiratory Pattern Blood Pressure 152/76 H Blood Pressure [Right Arm] Blood Pressure Mean 95 Blood Pressure Mean [Right Arm] Blood Pressure Position Blood Pressure Position [Right Arm] Pulse Oximetry 98 95 Oxygen Delivery Method Oxygen Flow Rate Sepsis Recent Fever Within 48 Hours Sepsis New/Unexplained Change in Mental Status Sepsis Action Taken by Nursing 03/01/24 15:30 Temperature Temperature Source Pulse Rate Pulse Rate [Apical] 91 H Pulse Rate from SpO2 Sensor Pulse Rhythm Pulse Strength Respiratory Rate 20 Respiratory Effort / Characteristics Non-Labored Spontaneous Respiratory Depth Normal Respiratory Pattern Regular Blood Pressure Blood Pressure [Right Arm] 135/81 Blood Pressure Mean Blood Pressure Mean [Right Arm] 99 Blood Pressure Position Blood Pressure Position [Right Arm] Semi-fowlers Pulse Oximetry 95 Oxygen Delivery Method Nasal Cannula Oxygen Flow Rate 2 Sepsis Recent Fever Within 48 Hours Sepsis New/Unexplained Change in Mental Status Sepsis Action Taken by Nursing Laboratory Data 03/01/24 11:20 03/01/24 11:20 Lab Results 03/01/24 03/01/24 Range/Units 11:20 14:23 WBC 7.70 (4.8-10.8) K/ul RBC 4.33 (4.20-5.40) M/uL Hgb 12.5 (12.0-16.0) g/dl Hct 37.9 (37.0-47.0) % MCV 87.5 (80.0-100.0) fL MCH 28.9 (25.0-34.0) pg MCHC 33.0 (32.0-36.0) g/dL RDW Std Deviation 44.5 (36.4-46.3) fL RDW Coeff of Sonal 14.0 (11.5-14.5) % Plt Count 249 (130-400) K/uL MPV 9.6 (9.4-12.4) fL Immature Gran % (Auto) 0.4 % Neut % (Auto) 65.9 % Lymph % (Auto) 21.9 % Whitley % (Auto) 7.8 % Eos % (Auto) 3.5 % Baso % (Auto) 0.5 % Neut # (Auto) 5.07 (1.40-6.50) K/uL Lymph # (Auto) 1.69 (1.20-3.40) K/uL Whitley # (Auto) 0.60 H (0.11-0.59) K/uL Eos # (Auto) 0.27 (0.00-0.50) K/uL Baso # (Auto) 0.04 (0.00-0.20) K/uL Immature Gran # (Auto) 0.03 (0.01-0.20) K/uL Sodium 138 (136-145) mmol/L Potassium 4.1 (3.5-5.1) mmol/L Chloride 100 (98-107) mmol/L Carbon Dioxide 31 (21-32) mmol/L Anion Gap 7 (3-11) BUN 15 (6-23) mg/dl Creatinine 0.86 (0.6-1.2) mg/dl Est Cr Clr Drug Dosing 69.8 ml/min eGFR 69.97 BUN/Creatinine Ratio 17.4 (10-20) Glucose 102 H (70-99(Fasting)) mg/dl Calcium 9.1 (8.6-10.3) mg/dl Total Bilirubin 0.7 (0.2-1.0) mg/dl AST 16 (13-39) U/L ALT 11 (7-52) U/L Alkaline Phosphatase 78 (34-104) U/L Troponin I High Sens 6.0 6.3 (0-14) pg/ml Total Protein 7.0 (6.0-8.3) gm/dl Albumin 3.6 (3.4-5.0) gm/dl Globulin 3.4 (2.5-4.0) gm/dl Albumin/Globulin Ratio 1.1 (0.9-2) Lipase 13 (11-82) U/L Administered Medications Discontinued Medications Acetaminophen (Acetaminophen 500 Mg Tab) 1,000 mg PO NOW STA Stop: 03/01/24 14:59 Last Admin: 03/01/24 15:28 Dose: 1,000 mg Documented By: MILENA Albuterol (Albut/Ipratrop 3mg/0.5mg Neb 3 Ml Vial) 9 ml NEB NOW STA; Protocol Stop: 03/01/24 11:27 Last Admin: 03/01/24 11:52 Dose: 9 ml Documented By: PAMELLA Aspirin (Aspirin Chew 324 Mg) 324 mg PO NOW STA Stop: 03/01/24 13:23 Last Admin: 03/01/24 13:39 Dose: Not Given Documented By: PAMELLA Methylprednisolone (Methylprednisolone 125 Mg/2 Ml Vial) 60 mg IV NOW STA Stop: 03/01/24 11:27 Last Admin: 03/01/24 11:52 Dose: 60 mg Documented By: PAMELLA Imaging Data Radiologist's Impression: Chest X-Ray 03/01/24 10:56 XR chest 1V portable CLINICAL HISTORY: Chest pain, nonspecific COMPARISON STUDY: Chest radiograph June 22, 2023. FINDINGS: An old, healed proximal diaphyseal left humeral fracture is incidentally noted. Lung volumes are normal. Lungs are clear. There is no pneumothorax or pleural effusion. Cardiomegaly is unchanged. Mediastinal contours are normal. There is no evidence for pulmonary edema. IMPRESSION: No acute cardiopulmonary findings. Cardiomegaly. ACT 112: Negative or not required by law. Electronically signed by: Cuhcho Mcclendon M.D. 03/01/2024 11:[address] 03/01/24 11:21 CT head/brain wo con CLINICAL HISTORY: 78 years-old Female with l arm weakness. Acute stroke like symptoms TECHNIQUE: Multiple axial CT images of the head were obtained without contrast. A dose lowering technique was utilized adhering to the principles of ALARA. CT DOSE: 1824.66 mGy.cm COMPARISON: 05/30/2019 FINDINGS: No acute intracranial hemorrhage, midline shift, intracranial mass, hydrocephalus, territorial ischemia or abnormal extra-axial collection. Involutional changes with progressive chronic microvascular ischemic disease. Study is mildly motion degraded. Cerebral vascular calcifications. The calvarium is intact. The paranasal sinuses, mastoid air cells, and middle ear cavities are clear. IMPRESSION: No acute intracranial abnormality identified. ACT 112: Negative or not required by law. The above report was generated using voice recognition software. It may contain grammatical, syntax or spelling errors. Electronically signed by: Delgado Jack M.D. 03/01/2024 11:53 AM Shoulder X-Ray 03/01/24 11:21 XR shoulder LT min 2V routine HISTORY: 78 years-old Female l shoulder pain acute left shoulder pain COMPARISON: 07/18/2013 TECHNIQUE: 3 views of the left shoulder FINDINGS: Healed chronic proximal left humeral fracture deformity. Mild AC joint with moderate glenohumeral osteoarthritis. Chronic appearing left-sided rib fractures. No acute fracture or dislocation identified. IMPRESSION: No acute fracture or dislocation identified. ACT 112: Negative or not required by law. The above report was generated using voice recognition software. It may contain grammatical, syntax or spelling errors. Electronically signed by: Delgado Jack M.D. 03/01/2024 12:16 PM Discharge Plan Visit Data Chief Complaint: Chest Pain Stated Complaint: CHEST PAIN, ARM PAIN ED Provider: Mihir Yin Discharge Problem: Hypoxia, Arm pain, Chest wall pain Forms Stand Alone Forms: [facility] Prescriptions Prescriptions: No Action (DME) nebulizer accessories Misc See Rx Instructions .ROUTE .MEDSUPPLY Qty: 1 0RF Rx Instructions: NEBULIZER TUBING. (DME) nebulizers Misc See Rx Instructions .ROUTE .MEDSUPPLY Qty: 1 0RF Rx Instructions: Nebulizer and nebulizer set up. DX: J44.9 (DME) compression socks, x-large Misc See Rx Instructions .ROUTE .MEDSUPPLY Qty: 2 0RF Rx Instructions: SIZE X-LARGE WITHOUT TOES R60.9 I87.2 (DME) miscellaneous medical supply Misc See Rx Instructions .ROUTE .MEDSUPPLY Qty: 1 0RF Rx Instructions: OXYGEN TUBING J45.909 J98.4 G47.34 (DME) nebulizer accessories Kit See Rx Instructions .Route Qty: 1 0RF Rx Instructions: As directed nystatin 100,000 unit/gram cream 1 applic TOP TID PRN (Reason: Skin Irritation) Qty: 30 1RF Patient Comments: pt stated she only uses the cream Rx Instructions: alternate application with powder benzonatate 200 mg capsule 200 mg PO TID PRN Patient Comments: CONFIRMED W/ PT AND ON CC DC SUMMARY 07/09 furosemide 20 mg tablet 20 mg PO QAM Qty: 90 3RF Rx Instructions: TAKE 1 TABLET BY MOUTH EVERY MORNING (DME) walker [facility] See Rx Instructions .Route Qty: 1 0RF Rx Instructions: As directed pantoprazole 40 mg tablet,delayed release (DR/EC) 40 mg PO QAM Qty: 90 3RF levalbuterol HCl 1.25 mg/3 mL solution for nebulization 1.25 mg inhalation Q4H PRN (Reason: Shortness Of Breath Or Wheezing) Qty: 1620 1RF Rx Instructions: PER PT "USE 3-4 TIMES DAILY" amlodipine 5 mg tablet 5 mg PO QAM Qty: 90 3RF arformoterol [Brovana] 15 mcg/2 mL solution for nebulization 2 ml inhalation BID Qty: 120 3RF metoprolol succinate 100 mg capsule,sprinkle,ER 24hr 100 mg PO QAM Qty: 90 3RF chlorpheniramine maleate [Allergy Relief(chlorpheniramn)] 4 mg tablet 4 mg PO Q12H 90 Days Qty: 180 0RF metformin 500 mg tablet 500 mg PO DAILY Qty: 30 2RF cephalexin 500 mg capsule 500 mg PO TID 10 Days Qty: 30 0RF gentamicin 0.1 % ointment 1 applic topical DAILY 14 Days Qty: 30 2RF levothyroxine 75 mcg tablet 75 mcg PO QAM Qty: 90 3RF montelukast 10 mg tablet 10 mg PO HS Qty: 90 3RF atorvastatin 20 mg tablet 20 mg PO QAM 90 Days Qty: 90 3RF Patient Comments: around noon gabapentin 300 mg capsule 300 mg PO BID Qty: 180 3RF (DME) CPAP Machine Misc See Rx Instructions .Route Qty: 1 0RF Rx Instructions: As directed 8cmH20 with C-Flex of 1 fluticasone propionate [Flonase Allergy Relief] 50 mcg/actuation spray,suspension 1 spray intranasal BID Qty: 18.2 2RF Rx Instructions: administer into each nostril budesonide 0.5 mg/2 mL suspension for nebulization 0.5 mg inhalation BID Qty: 120 2RF rivaroxaban 20 mg tablet 20 mg PO QPM Qty: 90 3RF cimetidine 400 mg tablet 400 mg PO DAILY 90 Days Qty: 90 2RF Rx Instructions: administer with dinner alendronate [Fosamax] 70 mg tablet 70 mg PO .q7days 90 Days Qty: 12 4RF Rx Instructions: Take 1 tab once weekly with 8 oz. plain water; wait 45 minutes before eating/drinking anything else. azithromycin 250 mg tablet 250 mg PO MOWEFR 30 Days Qty: 18 6RF Rx Instructions: Take 1 tablet orally every Wednesday, Wednesday, and Wednesday (DME) Shower Chair Misc See Rx Instructions .Route Qty: 1 0RF Rx Instructions: Bariatric shower chair calcium carbonate-vitamin D3 500 mg(1,250mg) -200 unit tablet 1 tab PO QPM Patient Comments: evening cyclosporine [Restasis] 0.05 % dropperette 1 drops ophthalmic (eye) BID docusate sodium 100 mg capsule 100 mg PO QAM PRN (Reason: Constipation) latanoprost 0.005 % drops 1 drops OP HS (DME) nebulizer accessories Misc See Rx Instructions .ROUTE .MEDSUPPLY Qty: 1 0RF Rx Instructions: NEBULIZER TUBING R06.00 J98.4 J45.909 Neilmed Sinus Rinse Complete Packet With Rinse Device See Rx Instructions .Route .COMPLEX Qty: 50 3RF Rx Instructions: use daily; ascorbic acid (vitamin C) [Vitamin C] 500 mg Tablet 500 mg PO QPM Patient Comments: noon guaifenesin [Mucinex] 600 mg tablet extended release 12hr 600 mg PO BID Rx Instructions: OTC Referrals Referrals: Cyndy Stringer MD [Primary Care Provider] - Discharge Problem: Arm pain Qualifiers: Laterality: unspecified laterality Qualified Code(s): M79.603 - Pain in arm, unspecified
[2024-03-01] MEDS: ALBUT/IPRATROP 3MG/0.5MG NEB 3 ML VIAL NEB STA (11:52)
[2024-03-01] MEDS: methylPREDNISolone 125 MG/2 ML VIAL IV STA (11:52)
[2024-03-01 11:55] LABS: Basophils # (auto) 0.04 K/uL (0.00-0.20); Basophils % (auto) 0.5 %; Eosinophils # (auto) 0.27 K/uL (0.00-0.50); Eosinophils % (auto) 3.5 %; Hematocrit (blood only) 37.9 % (37.0-47.0); Hemoglobin 12.5 g/dl (12.0-16.0); Immature Granulocytes # (auto) 0.03 K/uL (0.01-0.20); Immature Granulocytes % (auto) 0.4 %; Lymphocytes # (auto) 1.69 K/uL (1.20-3.40); Lymphocytes % (auto) 21.9 %; Mean Corpuscular Hemoglobin 28.9 pg (25.0-34.0); Mean Corpuscular Volume 87.5 fL (80.0-100.0); Mean Platelet Volume 9.6 fL (9.4-12.4); Monocytes % (auto) 7.8 %; Neutrophils # (auto) 5.07 K/uL (1.40-6.50); Neutrophils % (auto) 65.9 %; Platelet Count 249 K/uL (130-400); RDW Standard Deviation 44.5 fL (36.4-46.3); Red Blood Count 4.33 M/uL (4.20-5.40)
--- NOTE | 2024-03-01 11:56 | CT Scan Report ---
CT head/brain wo con CLINICAL HISTORY: 78 years-old Female with l arm weakness. Acute stroke like symptoms TECHNIQUE: Multiple axial CT images of the head were obtained without contrast. A dose lowering tech nique was utilized adhering to the principles of ALARA. CT DOSE: 1824.66 mGy.cm COMPARISON: 05/30/2019 FINDINGS: No acute intracranial hemorrhage, midline shift, intracranial mass, hydrocephalus, territorial ischem ia or abnormal extra-axial collection. Involutional changes with progressive chronic microvascular is chemic disease. Study is mildly motion degraded. Cerebral vascular calcifications. The calvarium is intact. The paranasal sinuses, mastoid air cells, and middle ear cavities are clear . IMPRESSION: No acute intracranial abnormality identified. ACT 112: Negative or not required by law. The above report was generated using voice recognition software. It may contain grammatical, syntax o r spelling errors. Electronically signed by: Delgado Jack M.D. 03/01/2024 11:53 AM
[2024-03-01 12:07] LABS: Albumin Globulin Ratio 1.1 (0.9-2); Albumin Level 3.6 gm/dl (3.4-5.0); BUN Creatinine Ratio 17.4 (10-20); Bilirubin,Total 0.7 mg/dl (0.2-1.0); Calcium 9.1 mg/dl (8.6-10.3); Creatinine Clr Calc Pharmacy 69.8 ml/min; Globulin 3.4 gm/dl (2.5-4.0); Potassium 4.1 mmol/L (3.5-5.1)
--- NOTE | 2024-03-01 12:18 | XRay Report ---
XR shoulder LT min 2V routine HISTORY: 78 years-old Female l shoulder pain acute left shoulder pain COMPARISON: 07/18/2013 TECHNIQUE: 3 views of the left shoulder FINDINGS: Healed chronic proximal left humeral fracture deformity. Mild AC joint with moderate glenohumeral ost eoarthritis. Chronic appearing left-sided rib fractures. No acute fracture or dislocation identified. IMPRESSION: No acute fracture or dislocation identified. ACT 112: Negative or not required by law. The above report was generated using voice recognition software. It may contain grammatical, syntax o r spelling errors. Electronically signed by: Delgado Jack M.D. 03/01/2024 12:16 PM
[2024-03-01] MEDS: ASPIRIN CHEW 324 MG PO STA (13:39)
--- NOTE | 2024-03-01 14:48 | History & Physical Report ---
Date of Service March 01, 2024 Assessment & Plan (1) Hypoxia: Plan: Main reason for admission, suspect mostly positional in setting of moderate LISSETH (recently diagnosed and does not yet have CPAP) and COPD No respiratory distress Low suspicion of PE while on Xarelto CXR unremarkable Incentive spirometer CPAP HS or while napping Solu-medrol and duoneb given in the ER but no defintiive improvement per patient following this TTE with bubble study (2) Left arm pain: Plan: Brain and cervical spine MRI Unless brain MRI postiive for CVA no need for further workup of this If cervical spine MRI normal suspect most likely rotator cuff etiology Plan Venous ulcer left leg - dressing not removed on admission as recently dressed in wound care clinic and noted ot be improving, continue Keflex T2DM - HbA1C 6.3 in August, repeat with AM labs, continue metformin Hypothyroidism - TSH with AM labs, continue levothyroxine GERD - continue pantoprazole A. fib - continue metoprolol and Xarelto VTE Prophylaxis - Xarelto Diet - T2DM Disposition - observation on med/surg Admission and Anticipated Discharge Date Admission Date: March 01, 2024 History of Present Illness Chief Complaint: Left arm and chest pain Primary Care Provider: Cyndy Stringer MD Genesis Alfonso is a 78-year-old female who presents to the ER on advice of the wound care clinic due to left arm and chest pain. She reports her symptoms have been ongoing intermittently for the last month. Today while in the van on the way to wound care clinic she feels her left arm became much worse with significant pain in her shoulder and upper arm and she has been unable to lift her left arm up without assistance which is new. Occasionally this pain comes from her hull and she has been feeling lumps in her neck. She reports recent history of falling. She gives an unsure history but does not think she had any problems with this more than a month ago. She feels the chest pain is related to her weakness in her upper shoulder and is much milder than the pain in her shoulder. She denies any vision, speech, hearing or lower extremity weakness or change in sensation. She is currently going to wound care clinic due to a venous ulcer on her left leg which is currently newly wrapped but reported as improving from today's note but remains on Keflex for this. In the ER she was noted to be hypoxic down to mid 80s at rest. She reports wearing oxygen at night but not during the day. She recently had sleep study but has not yet received those results, until I told her today, showing moderate sleep apnea and she hasn't yet started on CPAP at home. Allergies Allergy/AdvReac Type Severity Reaction Status Date / Time pecan nut Allergy Severe TONGUE Verified 03/01/24 15:56 SWELLS house dust Allergy Intermediate SNEEZING, Verified 03/01/24 15:56 CONGESTION Sulfa (Sulfonamide AdvReac Intermediate YEAST Verified 03/01/24 15:56 Antibiotics) INFECTION Home Medications Medication Instructions Recorded Confirmed Type calcium carbonate 500 mg-vitamin 1 tab PO QPM 01/14/19 03/01/24 History D3 5 mcg (200 unit) tablet cyclosporine 0.05 % eye drops in a 1 drops ophthalmic (eye) BID 01/14/19 03/01/24 History dropperette (Restasis) docusate sodium 100 mg capsule 100 mg PO QAM PRN Constipation 01/14/19 03/01/24 History latanoprost 0.005 % eye drops 1 drops ophthalmic (eye) HS 01/14/19 03/01/24 His tory nebulizer accessories #1 ea 03/26/20 03/01/24 Rx nebulizers #1 ea 09/09/20 03/01/24 Rx compression socks, x-large #2 ea 11/07/20 03/01/24 Rx miscellaneous medical supply #1 ea 11/07/20 03/01/24 Rx Shower Chair #1 ea 01/22/22 03/01/24 Rx nebulizer accessories #1 ea 01/27/22 03/01/24 Rx ascorbic acid (vitamin C) 500 mg 500 mg PO QPM 09/15/22 03/01/24 History tablet (Vitamin C) guaifenesin 600 mg tablet, 600 mg PO BID 09/15/22 03/01/24 History extended release 12 hr (Mucinex) rivaroxaban 20 mg tablet 20 mg PO QPM #90 tabs 03/04/23 03/01/24 Rx nystatin 100,000 unit/gram topical 1 applic topical TID PRN Skin 03/16/23 03/01/24 Rx cream Irritation #30 grams benzonatate 200 mg capsule 200 mg PO TID PRN Cough 07/09/23 03/01/24 History nebulizer accessories #1 ea 07/12/23 03/01/24 Rx sodium chloride, sodium See Rx Instructions .Route 07/19/23 03/01/24 Rx bicarb-nasal rinse squeeze bottle .COMPLEX #50 ea with packet (Neilmed Sinus Rinse Complete with packet) furosemide 20 mg tablet 20 mg PO QAM #90 tabs 08/04/23 03/01/24 Rx walker #1 ea 08/30/23 03/01/24 Rx cimetidine 400 mg tablet 400 mg PO DAILY 90 days #90 tabs 09/07/23 03/01/24 Rx azithromycin 250 mg tablet 250 mg PO MOWEFR 30 days #18 tabs 09/08/23 03/01/24 Rx pantoprazole 40 mg tablet,delayed 40 mg PO QAM #90 tabs 09/17/23 03/01/24 Rx release amlodipine 5 mg tablet 5 mg PO QAM #90 tabs 10/11/23 03/01/24 Rx arformoterol 15 mcg/2 mL solution 2 ml inhalation BID #120 mL 12/14/23 03/01/24 Rx for nebulization (Brovana) metoprolol succinate 100 mg 100 mg PO QAM #90 ea 12/27/23 03/01/24 Rx capsule sprinkle, ext. release 24 hr chlorpheniramine maleate 4 mg 4 mg PO Q12H 90 days #180 tabs 01/04/24 03/01/24 Rx tablet (Allergy Relief (chlorpheniramine)) metformin 500 mg tablet 500 mg PO DAILY #30 tabs 02/06/24 03/01/24 Rx cephalexin 500 mg capsule 500 mg PO TID 10 days #30 caps 02/21/24 03/01/24 Rx gentamicin 0.1 % topical ointment 1 applic topical DAILY 2 weeks #30 02/21/24 03/01/24 Rx grams CPAP Machine #1 ea 02/22/24 03/01/24 Rx atorvastatin 20 mg tablet 20 mg PO QAM 90 days #90 tabs 02/22/24 03/01/24 Rx budesonide 0.5 mg/2 mL suspension 0.5 mg (2 mL) inhalation BID #120 02/22/24 03/01/24 Rx for nebulization mL fluticasone propionate 50 1 spray intranasal BID #18.2 mL 02/22/24 03/01/24 Rx mcg/actuation nasal spray,suspension (Flonase Allergy Relief) gabapentin 300 mg capsule 300 mg PO BID #180 caps 02/22/24 03/01/24 Rx levothyroxine 75 mcg tablet 75 mcg PO QAM #90 tabs 02/22/24 03/01/24 Rx montelukast 10 mg tablet 10 mg PO HS #90 tabs 02/22/24 03/01/24 Rx alendronate 70 mg tablet (Fosamax) 70 mg PO WK 03/01/24 03/01/24 History Past Med/Surg History Problem List (Updated 03/01/24 @ 16:04 by Mihir Yin DO) Chest wall pain (Acute) Arm pain (Acute) Hypoxia (Acute) Hypoxia Left arm pain (Acute) Abnormal ankle brachial index Venous ulcer of left leg (Acute) Type 2 diabetes mellitus with obesity Osteoporosis Prolapse of female pelvic organs Mixed incontinence Cystocele with prolapse Poor balance Hypothyroid (Chronic) Autonomic neuropathy (Chronic 09/03/12) Atrial fibrillation (Acute) Hyperlipemia (Chronic) Asthma SSS (sick sinus syndrome) RBBB (right bundle branch block) Dermatophytosis of the trunk Diabetic neuropathy Restrictive lung disease Right lumbar radiculopathy Venous stasis ulcer of left lower leg with edema of left lower leg (Acute) Chronic venous insufficiency of lower extremity (Chronic) History of right knee joint replacement Obstructive sleep apnea (Acute) Metabolic syndrome Morbid obesity Slow transit constipation Chronic venous insufficiency Vertigo Balance disorder Hammertoe of right foot (Chronic) GERD (gastroesophageal reflux disease) COPD (chronic obstructive pulmonary disease) Anticoagulant long-term use xarelto daily Left knee DJD Urinary incontinence Nocturnal hypoxemia Hypertension CHF (congestive heart failure) Medical History COPD exacerbation Acute on chronic respiratory failure with hypoxia Rhinovirus infection Elevated brain natriuretic peptide (BNP) level Shortness of breath History of skin ulcer of lower extremity lt leg, currently has healing wounds/ulcers, being treated in [facility] wound care Morbid obesity with BMI of 45.0-49.9, adult History of intestinal obstruction History of gout Hoarseness of voice Hypothyroidism Prediabetes diet controlled-"i'm not very good at following it" History of basal cell carcinoma Glaucoma PVD (peripheral vascular disease) Osteoarthritis HLD (hyperlipidemia) On home oxygen therapy 2 lpm qHS and prn Peripheral neuropathy Sacral fracture As seen on MRI 01/25/2020, occult right hemisacrum fracture Asthma inhaler daily/prn, nebulizer prn Afib on xarelto; follows with Dr. Zimmer Surgical History Cataract extraction status, right eye Hx of cataract extraction LT. Status post sclerotherapy of varicose veins (~11/06/20) @ [facility] History of tooth extraction History of intestinal surgery S/P thyroid biopsy History of basal cell carcinoma (BCC) excision Status post endovenous radiofrequency ablation of saphenous vein History of endovenous ablation of incompetent vein radiofrequency. Type of vein not specified in CCD History of total knee arthroplasty Rt History of hernia repair History of decompression of median nerve at carpal tunnel (neuroplasty) History of total abdominal hysterectomy bso History of laparoscopic cholecystectomy Family History Father Skin cancer Pulmonary embolism Father Gout Other No family history of adverse response to anesthesia Denies family history of Ovarian cancer Prostate cancer Myocardial infarction Breast cancer Lung cancer Colorectal cancer Social History (Updated 01/19/24 @ 11:01 by Jaclyn Chu, DONATO) Smoking Status: Never smoker Second Hand Exposure: No; Do You Dip or Chew Tobacco: No; Hx Alcohol Use: No Hx Substance Use: No Preferred Language: Jamaican Communication Ability: Effective Visual Impairment: Limited Hearing Ability: Normal [employer] Required: No Beliefs That Will Affect Care: None marital status: Current Living Situation: Alone current occupational status: retired 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 ONE CHILD IN [place]. AND ANOTHER LIVES ABOUT AN HOUR AND 1/2 AWAY FROM . Other Information That Helps Us Care for You: No Feels Safe at Home: Yes Safety Concerns: Feels Safe At This Time Safety Concerns Comment: Considered Life Alert but has her phone with her. Childhood Exposure to Second-Hand Smoke: No Diet: low salt caffeine: Yes (1-2 cups in am per day.) during the past year weight has: remained stable Dental Care, Regularly: Yes Physical Activity Frequency: Does not Exercise Seatbelt Use: always Sunscreen Use: Yes Do you think of yourself as: straight/heterosexual Gender Identity: Female Assistive Devices: Cane, Oxygen - at Night and Walker Review of Systems Review of Systems: All systems reviewed & are unremarkable except as noted in HPI & below Physical Exam Constitutional: WD/WN, vitals as above Eyes: PERRL, conjunctivae normal, anicteric sclerae Respiratory: normal respiratory effort, lungs clear to auscultation Cardiovascular: Rate/Rhythm: regular rate and + irregularly irregular Heart Sounds: no murmur Extremities: normal capillary refill; no calf tenderness and no pedal edema Gastrointestinal (Abdomen): normal bowel sounds, soft, nontender, no hepatosplenomegaly Musculoskeletal: Spine: no pain with cervical ROM and no cervical spinal tenderness Shoulder: + limited ROM (unable to lift left shoulder); shoulder n ormal to inspection, no effusion and no ecchymosis shoulder movements somewhat limited by pain radiating down left arm but also weakness with any should movements Skin: no rashes, warm and dry (left leg dressing not removed) Neurologic: moves all extremities, + focal motor deficit (decreased left director of sleep strength elbow flexion and shoulder movement) and awake Motor/Sensory: + pronator drift (left); no tremor and no sensory deficit Cranial Nerves: PERRL, EOM intact bilaterally, normal facial strength, tongue midline, able to rotate head bilaterally, able to elevate shoulders bilaterally, no nystagmus and symmetric palate elevation Coordination: + abnormal [id number]-[id number]-sgyd test (unable to perform on left side) Psychiatric: A+Ox3, euthymic affect Results & Data Results & Data Vital Signs (Past 12 Hours) Vital Signs Temp Pulse Resp BP Pulse Ox O2 Del Method O2 Flow Rate 03/01/24 12:20 81 03/01/24 11:30 74 22 03/01/24 11:09 86 18 134/68 91 03/01/24 10:56 78 22 94 Nasal Cannula 2 03/01/24 10:48 86 L Nasal Cannula 2 03/01/24 10:42 89 18 98 03/01/24 10:35 131/66 03/01/24 10:15 36.8 C 90 22 131/66 86 L Room Air Laboratory Results Abnormal lab results 03/01/24 Range/Units 11:20 [place] # (Auto) 0.60 H (0.11-0.59) K/uL Glucose 102 H (70-99(Fasting)) mg/dl Diagnostic Findings CT head/brain wo con CLINICAL HISTORY: 78 years-old Female with l arm weakness. Acute stroke like symptoms TECHNIQUE: Multiple axial CT images of the head were obtained without contrast. A dose lowering technique was utilized adhering to the principles of ALARA. CT DOSE: 1824.66 mGy.cm COMPARISON: 05/30/2019 FINDINGS: No acute intracranial hemorrhage, midline shift, intracranial mass, hydrocephalus, territorial ischemia or abnormal extra-axial collection. Involutional changes with progressive chronic microvascular ischemic disease. Study is mildly motion degraded. Cerebral vascular calcifications. The calvarium is intact. The paranasal sinuses, mastoid air cells, and middle ear cavities are clear. IMPRESSION: No acute intracranial abnormality identified. XR chest 1V portable CLINICAL HISTORY: Chest pain, nonspecific COMPARISON STUDY: Chest radiograph June 22, 2023. FINDINGS: An old, healed proximal diaphyseal left humeral fracture is incidentally noted. Lung volumes are normal. Lungs are clear. There is no pneumothorax or pleural effusion. Cardiomegaly is unchanged. Mediastinal contours are normal. There is no evidence for pulmonary edema. IMPRESSION: No acute cardiopulmonary findings. Cardiomegaly. XR shoulder LT min 2V routine HISTORY: 78 years-old Female l shoulder pain acute left shoulder pain COMPARISON: 07/18/2013 TECHNIQUE: 3 views of the left shoulder FINDINGS: Healed chronic proximal left humeral fracture deformity. Mild AC joint with moderate glenohumeral osteoarthritis. Chronic appearing left-sided rib fractures. No acute fracture or dislocation identified. IMPRESSION: No acute fracture or dislocation identified. Medications Administered ER medications given: Solu-Medrol 60 mg IV DuoNeb 3 mL neb Aspirin 324 mg p.o. ECG Rate (beats per minute): 83 Rhythm: atrial fibrillation Findings: + RBBB Comparison ECG Date: from (January 14, 2024) Change: the following changes noted (T wave inversion no longer present in lateral leads) Code Status & VTE Plan Code Status Full VTE Prophylaxis Plan VTE Prophylaxis will be ordered: Yes PG Care Time/CCT Total # of Minutes Spent Total Time Spent with Patient: Total time spent is greater than 50% in coordination of care (as documented) at patient's floor/unit and/or counseling patient: Coding Level of Care Code 38891 INT INP/OBS CARE 3/75MIN Diagnoses Hypoxia R09.02 Left arm pain M79.602
--- NOTE | 2024-03-01 15:23 | Electrocardiogram Report ---
Test Reason : Blood Pressure : */* mmHG Vent. Rate : 83 BPM Atrial Rate : * BPM P-R Int : * ms QRS Dur : 150 ms QT Int : 408 ms P-R-T Axes : * 25 -12 degrees QTcB Int : 479 ms Atrial fibrillation Right bundle branch block Abnormal ECG When compared with ECG of 14-Jan-2024 11:47, (unconfirmed) T wave inversion no longer evident in Lateral leads Confirmed by Jese Hoskins ([id number]) on 03/01/2024 3:23:11 PM Referred By: REFERRED SELF Confirmed By: Jese Hoskins
[2024-03-01] MEDS: ACETAMINOPHEN 500 MG TAB PO STA (15:28)
[2024-03-01] MEDS ORDERED: GLUCOSE 10 TAB/TUBE PO PRN (18:23)
[2024-03-01] MEDS ORDERED: GLUCAGON FOR INJ 1 MG VIAL SQ PRN (18:23)
[2024-03-01] MEDS ORDERED: DEXTROSE 50% 50 ML SYRINGE IV PRN (18:23)
[2024-03-01] MEDS ORDERED: CARBOHYDRATES FOR HYPOGLYCEMIA PO PRN (18:23)
[2024-03-01] MEDS ORDERED: ACETAMINOPHEN 325 MG TAB PO PRN (18:23)
[2024-03-01] MEDS ORDERED: GLUCOSE 40% GEL 15 GM TUBE PO PRN (18:23)
[2024-03-01] MEDS: INSULIN ASPART PER UNIT CHARGE SC SCH (18:47)
--- NOTE | 2024-03-01 20:22 | Magnetic Resonance Report ---
Exam(s): MRI HEAD Without Contrast EXAM: MR Head Without Intravenous Contrast CLINICAL HISTORY: Reason for exam: Left arm pain weakness ?CVA. TECHNIQUE: Magnetic resonance images of the head/brain without intravenous contrast in multiple planes. COMPARISON: CT head: 03/01/2024 FINDINGS: Motion-induced image degradation. Brain: There is no restricted diffusion noted to suggest acute infarction. FLAIR imaging demonstrates significant periventricular and scattered subcortical signal hyperintensity which is nonspecific but can be seen with chronic small vessel ischemic disease/age related white matter degeneration. No mass. No hemorrhage. No midline shift. There are no extra-axial abnormal fluid collections. There is moderate cerebral atrophy with widening of the extra-axial spaces and ventricular dilatation. Normal void signal is present within the carotid and basilar arteries. The visualized bilateral orbits, paranasal sinuses and mastoid air cells are unremarkable. Moderate nasal septal deviation to the left. Bones/joints: Unremarkable. No acute fracture.. IMPRESSION: No evidence of acute infarction, hemorrhage or intracranial mass. Chronic involutional and ischemic white matter changes of the brain. . Electronically signed by: Stalin Mayen MD, EVELIOR 03/01/24 20:21 PM
[2024-03-01] MEDS ORDERED: DOCUSATE SODIUM 100 MG CAP PO PRN (20:40)
[2024-03-01] MEDS ORDERED: BENZONATATE 100 MG CAPSULE PO PRN (20:40)
[2024-03-01] MEDS ORDERED: IBUPROFEN 200 MG TAB PO PRN (20:45)
[2024-03-01] MEDS ORDERED: [UNRECOGNIZED DRUG - OTHER] SCH (20:45)
--- NOTE | 2024-03-01 20:49 | Magnetic Resonance Report ---
Exam(s): MRI C SPINE EXAM: MR Cervical Spine Without Intravenous Contrast CLINICAL HISTORY: Reason for exam: Left arm pain weakness ?neural foraminal stenosis. TECHNIQUE: Magnetic resonance images of the cervical spine without intravenous contrast in multiple planes. COMPARISON: None. FINDINGS: Diagnostic sensitivity is reduced by motion artifact. Vertebrae: There is a 3 mm C5 retrolisthesis. No acute fracture. Spinal cord: Unremarkable. Normal signal. Soft tissues: Unremarkable. DISCS/SPINAL CANAL/NEURAL FORAMINA: C2-C3: Unremarkable. No significant disc disease. No stenosis. C3-C4: Posteriorly centrally shallow mild disc bulging. Minimal anterior thecal sac effacement. Moderate right and mild left foraminal stenosis. C4-C5: Mild/moderate posterior disc bulging. Mild anterior thecal sac effacement. Moderate left and mild right foraminal stenosis. C5-C6: Moderately large posterior disc bulging with disc osteophyte complex/endplate changes is seen causing effacement of the anterior thecal sac without abutment of the cord. There is severe left and moderately severe right foraminal stenosis. C6-C7: Moderately large size posterior disc bulging and symmetrical endplate changes are seen with anterior thecal sac compression and moderately severe bilateral foraminal stenosis. C7-T1: Mild/moderate posterior disc bulging/endplate changes are seen with mild/moderate right and mild left foraminal narrowing. Minimal anterior thecal sac compression. IMPRESSION: This unenhanced MRI of the cervical spine demonstrates multilevel degenerative disc/endplate spondylitic changes with variable degrees of foraminal and central canal stenosis as described above. The greatest amount of disc material present at C5-C6 level with compression of the anterior thecal sac and severe left/moderately severe right foraminal stenosis. . Electronically signed by: Stalin Mayen MD, DABR 03/01/24 20:48 PM
[2024-03-01] MEDS ORDERED: ARTIFICIAL TEARS OP PRN (20:54)
[2024-03-01] MEDS: FORMOTEROL 20 MCG/2 ML VIAL INH SCH (21:21)
[2024-03-01] MEDS: BUDESONIDE 0.5 MG/2 ML VIAL (PULMICORT) INH SCH (21:21)
--- OUTSIDE RECORDS SUMMARY | 2024-03-01 21:26 | External Medical Summary | Continuity of Care Document ---
Author Name Unknown Organization [facility] [address] [place], [place] [address] Address [address] [place] [phone] Care Team Providers Care Revenue Coordinator Name Role Phone Ronda Adamson Primary Care Physician [phone] [id number] Date(s): 02/25/24 - 02/25/24 [facility] [address] [facility] [address] [facility] [address] [place] [address] Encounter Diagnosis Callus(Discharge Diagnosis) - 02/25/24 Diabetes(Discharge Diagnosis) - 02/25/24 Peripheral vascular disease(Discharge Diagnosis) - 02/25/24 Tinea unguium(Discharge Diagnosis) - 02/25/24 Discharge Disposition: Home or Self Care Attending Physician: COREY Garcia Christina L Allergies, Adverse Reactions, Alerts Substance Criticality Severity Reaction Reaction Severity Status sulfa drugs CANDIDIASIS Active Dust Nasal congestion Act theodore Pollen Nasal congestion Act theodore tree nuts 1 pecans Active 1toungue swelling- pecans Assessment and Plan Extracted from: Title:Follow Up Visit Author:COREY Garcia, Franck Dhaliwal Date:02/25/24 1.Callus Area debrided with #15 blade to tolerance, no bleeding or cellulitis noted verbal consent obtained for debridement Recommend moisturizing lotion to feet daily Recommend offloading pads over the area for pressure relief 2.Diabetes 3.Peripheral vascular disease 4.Tinea unguium -Patient unable to provide self care to toenails due to DM - verbal consent obtained for debridement -Recommend toenail debridement -Patient had toenails of bilateral digits 1-5 debrided using nail nippers to tolerance, no bleeding noted -Patient instructed to use emery board to nails once per week -Patient had no ingrown toenails or infection noted -Patient is to follow up in 5-6 months for treatment if needed in the future Immunizations Given and Recorded Vaccine Date Status Refusal Reason SARS-CoV-2 (COVID-19) mRNA-1273 vaccine 1 09/02/20 Recorded SARS-CoV-2 (COVID-19) mRNA-1273 vaccine 2 08/05/20 Recorded pneumococcal 13-valent vaccine 3 06/12/15 Recorded pneumococcal 23-valent vaccine 4 03/20/13 Recorded influenza virus vaccine, H1N1 5 06/10/09 Recorded 1Result Comment: 2020-11-08: Historical information-source unspecified 2Result Comment: 2020-11-08: Historical information-source unspecified 3Result Comment: 2020-11-08: Historical information-source unspecified 4Result Comment: 2020-11-08: Historical information-source unspecified 5Result Comment: 2020-11-08: Historical information-source unspecified Medications amLODIPine 5 mg oral tablet TAKE 1 TABLET BY MOUTH EVERY DAY IN THE MORNING Start Date: 01/27/22 Status: Ordered amoxicillin 500 mg oral capsule Start: 09/10/21 9:29:00 AM EDT, 4 each, TAKE ALL 4 CAPS ONE HOUR PRIOR TO DENTAL PROCEDURE Start Date: 09/10/21 Status: Ordered atorvastatin Start: 06/10/18 3:20:00 PM EST, 20 mg =, PO, Daily Start Date: 06/10/18 Status: Ordered cephalexin 500 mg oral capsule TAKE 1 CAPSULE BY MOUTH THREE TIMES A DAY FOR 10 DAYS Start Date: 02/25/24 Status: Ordered ciclopirox 8% topical solution Start: 09/10/23 2:01:00 PM EDT, 1 appl, topical, Daily, Disp# 6.6 mL, Refills: 6, to affected area once per day for 6 months, Pharmacy: [facility]/pharmacy #[id number] Start Date: 09/10/23 Stop Date: 11/29/26 Status: Ordered cimetidine 400 mg oral tablet Start: 09/10/21 9:30:00 AM EDT, 90 each, TAKE 1 TABLET BY MOUTH AT BEDTIME Start Date: 09/10/21 Status: Ordered flecainide 100 mg oral tablet Start: 10/30/14 2:48:00 PM EDT, 1 tab, PO, q12h Start Date: 10/30/14 Status: Ordered furosemide 40 mg oral tablet Start: 02/10/13 10:59:00 AM EDT, 0.5 tab, PO, Daily Start Date: 02/10/13 Status: Ordered gabapentin 300 mg oral capsule Start: 02/10/13 11:00:00 AM EDT, 1 cap, PO, tid Start Date: 02/10/13 Status: Ordered ipratropium 0.02% for nebulization Start: 10/30/14 2:48:00 PM EDT, 3 mL, NEB, q6h Start Date: 10/30/14 Status: Ordered latanoprost 0.005% ophthalmic solution Start: 08/17/17 1:04:00 PM EDT, 1 drop, both eyes, qhs Start Date: 08/17/17 Status: Ordered levalbuterol 1.25 mg/3 mL for nebulization Start: 08/17/17 1:04:00 PM EDT, 3 mL, NEB, tid, PRN: as needed for wheezing Start Date: 08/17/17 Status: Ordered levothyroxine 75 mcg (0.075 mg) oral tablet Start: 02/10/13 11:00:00 AM EDT, 1 tab, PO, Daily Start Date: 02/10/13 Status: Ordered metFORMIN 500 mg oral tablet TAKE 1 TABLET BY MOUTH EVERY DAY Start Date: 02/25/24 Status: Ordered metoprolol succinate 100 mg oral tablet, extended release Start: 10/30/14 2:47:00 PM EDT, 1 tab, PO, Daily Start Date: 10/30/14 Status: Ordered montelukast 10 mg oral tablet Start: 08/17/17 1:08:00 PM EDT, 1 tab, PO, qPM Start Date: 08/17/17 Status: Ordered nystatin 100,000 units/g topical cream Start: 02/27/20 2:31:00 PM EDT, See Instructions, Disp# 30 g, Refills: 1, apply to area under breastbid for intertrigo until clear, Pharmacy: [facility]/pharmacy #[id number] Start Date: 02/27/20 Status: Ordered oxygen Start: 03/09/13 3:53:00 PM EDT, oxygen, See Instructions, 2 L during sleep Start Date: 03/09/13 Status: Ordered pantoprazole 40 mg oral delayed release tablet Start: 10/30/14 2:47:00 PM EDT, 1 tab, PO, Daily Start Date: 10/30/14 Status: Ordered pantoprazole 40 mg oral delayed release tablet TAKE 1 TABLET BY MOUTH EVERY MORNING Start Date: 01/27/22 Status: Ordered Restasis 0.05% ophthalmic emulsion Start: 08/17/17 1:01:00 PM EDT, 1 drop, both eyes, q12h Start Date: 08/17/17 Status: Ordered Trelegy Ellipta 200 mcg-62.5 mcg-25 mcg/inh inhalation powder Start: 12/17/22 2:56:00 PM EDT Start Date: 12/17/22 Status: Ordered Trelegy Ellipta 200 mcg-62.5 mcg-25 mcg/inh inhalation powder INHALE 1 PUFF DAILY Start Date: 06/10/22 Status: Ordered Xarelto 20 mg oral tablet Start: 10/30/14 2:45:00 PM EDT, 1 tab, PO, Daily Start Date: 10/30/14 Status: Ordered Xopenex HFA 45 mcg/inh inhalation aerosol Start: 06/10/18 3:22:00 PM EST, 2 puff, inhaled, q4h, PRN: as needed for wheezing Start Date: 06/10/18 Status: Ordered Mental Status 02/25/24 Barriers to Learning one year None evide nt Mandatory Health Literacy Documentation Yes Health Literacy Communication Barriers N ever Primary Language Greek Problem List Condition Confirmation Course Effective Dates Status Health Status Informant Ankle pain, left Confirmed Active Asthma Confirmed Active Afib Confirmed Active Callus Confirmed Active Cellulitis Confirmed 2012 Active COPD (chronic obstructive pulmonary disease) Confirmed Active Diabetes Confirmed Active DM (diabetes mellitus) in Confirmed Active HTN (hypertension) Confirmed Active Hypercholesterolemia Confirmed Active Hypothyroidism Confirmed Active Incisional hernia Confirmed Active Neuropathy Confirmed Active Tinea unguium Confirmed Active Peripheral vascular disease Confirmed Active Venous ulcer of leg Confirmed Active Diagnosis Diagnosis Type Effective Dates Health Status Clinical Service Informant Diabetes Discharge Diagnosis 02/25/24 Non-Specified Peripheral vascular disease Discharge Diagnosis 02/25/24 Non-Specified Callus Discharge Diagnosis 02/25/24 Non-Specified Tinea unguium Discharge Diagnosis 02/25/24 Non-Specified Procedures Procedure Date Related Diagnosis Body Site Status Surgery 2017 Completed Chest x-ray r/t bronchitis 09/2016 Completed Shave biopsy of skin 10/30/14 Comp leted Knee replacement 2007 Complete d Cataract 2 Completed Incisional hernia Complet ed 1Endovenous ablation in legs 2L/R Vital Signs Most recent to oldest [Reference Range]: 1 Height 155.7 cm (02/25/24 12:58 PM) Patient Weight 125.8 kg (02/25/24 12:58 PM) Body Mass Index 51.89 kg/m2 (02/25/24 12:58 PM) Social History Social History Type Response Smoking Status Never smoked cigaret odalys Sex Female Sex Representation Female (finding) Ortho Outpt Note * COREY Garcia, Demetra Dhaliwal: PERFORM Event Display: Ortho Outpt Note Authored Date: [id number] Chief Complaint nail care Primary Care Provider CALIXTO Adamson, Ronda Moran Subjective Patient is a very pleasant 78-year-old female presenting today for carehistory of venous stasis ulcers, last visit in August all ulcers were healedshe is a low to moderate risk diabetic given the history of venous stasis ulcersshe uses compression for her legs -Patient has a concern today that she has a new venous ulceron her left lower extremity she is seeing the wound clinicand receives compression dressings compression dressing was placed on the lower leg at follow-up visit today. Review of Systems Diabetes Objective Vitals & Measurements WT:125.800kg(Dosing) WT:125.8kg Physical Exam Problem focused bilateral feet: Dorsalis pedis pulse palpable 1 out of 4, posterior tibial pulse nonpalpable, capillary refill timeless than 3 seconds, skin turgor is good to distal extremity,slight coolness noted to distal extremitiespedal hair is noted to be absent. Bilateral lower extremity edema noted patient uses compression hose secondary to known history of venous stasis. Monofilament test absent to distal extremities, light touch absent to distal extremities, proprioception absent to distal extremities. Venous stasis ulceration left lower extremitywith history of newly formed wounds seeing the diabetic foot clinic. Callus present distal aspect of the right second toe, distal aspect of the rightthird toe recommend debridement Rigid hammertoe deformity right second and third toe,with associated calluses as described no infection or open wound Toenails of digits 1 through 5 of bilateral feet with thickening greater than 1 mm, discoloration, dystrophy, elongation, subungual debris, incurvation, pain recommend debridement Assessment/Plan 1.Callus Area debrided with #15 blade to tolerance, no bleeding or cellulitis noted verbal consent obtained for debridement Recommend moisturizing lotion to feet daily Recommend offloading pads over the area for pressure relief 2.Diabetes 3.Peripheral vascular disease 4.Tinea unguium -Patient unable to provide self care to toenails due to DM - verbal consent obtained for debridement -Recommend toenail debridement -Patient had toenails of bilateral digits 1-5 debrided using nail nippers to tolerance, no bleedingnoted -Patient instructed to use emery board to nails once per week -Patient had no ingrown toenails or infection noted -Patient is to follow up in 5-6 months for treatment if needed in the future Electronic Signature on File Electronically Reviewed/Signed by: Demetra Garcia DPM Author Signature Dt/Tm:02/25/2024 01:15 PM Division of Sports Medicine CLR Patient Care team information Care Team Personnel Name: CALIXTO Adamson Rebecca Linn Position: Referring Member Role: Primary Care Provider Address: [address] [address] [place] Care Team Related Persons Name: YORDAN MENJIVAR Name: CHARLETTE PURCELL Name: JUSTYN RAGLAND
[2024-03-01] MEDS: GABAPENTIN 300 MG CAP PO SCH (21:31)
[2024-03-01] MEDS: FLUTICASONE PROPIONATE NA SPR 16 GM BTL NAE SCH (21:31)
[2024-03-01] MEDS: guaiFENesin 600 MG TABCR PO SCH (21:31)
[2024-03-01] MEDS: CALCIUM 600MG + VIT D 400 IU TAB PO SCH (21:32)
[2024-03-01] MEDS: MONTELUKAST SODIUM 10 MG TABLET PO SCH (21:32)
[2024-03-01] MEDS: RIVAROXABAN 20 MG TAB PO SCH (21:33)
[2024-03-01] MEDS: LATANOPROST 0.005% OP SOLN 2.5 ML BTL OP SCH (21:34)
[2024-03-01] MEDS: ACETAMINOPHEN 500 MG TAB PO SCH (21:35)
[2024-03-01] MEDS: cephALEXin 500 MG CAP PO SCH (22:25)
[2024-03-01] MEDS: AZITHROMYCIN 250 MG TAB PO SCH (22:25)
[2024-03-02] MEDS: LEVOTHYROXINE SODIUM 75 MCG TABLET PO SCH (05:32)
[2024-03-02] MEDS: amLODIPine BESYLATE 5 MG TAB PO SCH (08:07)
[2024-03-02] MEDS: metFORMIN HCL 500 MG TAB PO SCH (08:08)
[2024-03-02] MEDS: FUROSEMIDE 20 MG TAB PO SCH (08:08)
[2024-03-02] MEDS: METOPROLOL SUCC 50MG EXT REL TAB PO SCH (08:08)
[2024-03-02] MEDS: PANTOprazole 40 MG TAB PO SCH (08:08)
[2024-03-02] MEDS: ATORVASTATIN 20 MG TAB PO SCH (08:08)
[2024-03-02] MEDS ORDERED: cephALEXin 500 MG CAP PO SCH (09:00)
[2024-03-02 09:32] LABS: Basophils # (auto) 0.02 K/uL (0.00-0.20); Basophils % (auto) 0.2 %; Hematocrit (blood only) 39.2 % (37.0-47.0); Hemoglobin 12.6 g/dl (12.0-16.0); Immature Granulocytes # (auto) 0.06 K/uL (0.01-0.20); Immature Granulocytes % (auto) 0.7 %; Lymphocytes # (auto) 1.29 K/uL (1.20-3.40); Lymphocytes % (auto) 14.7 %; Mean Corpuscular Hemoglobin 28.6 pg (25.0-34.0); Mean Corpuscular Hgb Conc 32.1 g/dL (32.0-36.0); Mean Corpuscular Volume 89.1 fL (80.0-100.0); Mean Platelet Volume 9.3 fL (9.4-12.4); Monocytes # (auto) 0.59 K/uL (0.11-0.59); Monocytes % (auto) 6.7 %; Neutrophils # (auto) 6.84 K/uL (1.40-6.50); Neutrophils % (auto) 77.7 %; Platelet Count 274 K/uL (130-400); RDW Standard Deviation 45.5 fL (36.4-46.3)
[2024-03-02 09:59] LABS: Appearance Urine Clear (Clear); Bilirubin Urine Negative (Negative); Blood Urine Negative (Negative); Color Urine Yellow; Glucose Urine UA Negative (Negative); Ketones Urine Negative (Negative); Leukocyte Esterase Urine Negative (Negative); Nitrite Urine Negative (Negative); Protein Urine Negative (Negative); Specific Gravity Urine 1.007 (1.000-1.030); Urobilinogen Urine Negative (Negative); pH Urine 7.5 (4.5-7.5)
[2024-03-02 10:04] LABS: BUN Creatinine Ratio 20.6 (10-20); Calcium 9.6 mg/dl (8.6-10.3); Creatinine Clr Calc Pharmacy 95.3 ml/min; Magnesium 2.1 mg/dl (1.7-2.4); Potassium 4.1 mmol/L (3.5-5.1); Thyroid Stimulating Hormone 0.469 uIu/ml (0.300-4.500)
[2024-03-02 10:18] LABS: Estimated Average Glucose 131 mg/dl; Hemoglobin A1C 6.2 % (4.5-5.6)
--- NOTE | 2024-03-02 10:46 | XCELERA ---
[id number]
--- NOTE | 2024-03-02 10:59 | Hospitalist Progress Note ---
Date of Service March 02, 2024 Assessment & Plan (1) Hypoxia: Plan: Main reason for admission, suspect mostly positional in setting of moderate LISSETH (recently diagnosed and does not yet have CPAP) and COPD No respiratory distress Low suspicion of PE while on Xarelto CXR unremarkable Incentive spirometer CPAP HS or while napping Solu-medrol and duoneb given in the ER but no definitive improvement per patient following this TTE with bubble study showed EF 60-65%, no significant valvular heart disease Has been stable on room air while awake (2) Left arm pain: Plan: Radicular symptoms down left arm - Brain MRI negative for acute infarction, hemorrhage, or intracranial mass - Cervical spine MRI revealed C5-C6 compression of the anterior thecal sac and severe left/moderately severe right foraminal stenosis > Ortho spine consulted - Pain management consulted given cervical spine radiculopathy > Procedural intervention not indicated, with contraindication to steroid injection due to chronic open wound on left leg, antibiotics, diabetes and morbid obesity > Could consider cervical facet joint medial branch nerve blocks and ablation or left shoulder suprascapular and articular branch of the axillary nerve block/RFA in the outpatient setting > Could consider increasing gabapentin to 300 mg 3 times daily > Could consider starting tramadol if pain warrants and no contraindications (3) Venous ulcer of left leg: Plan: Continue wound care as ordered - Clean and dry wound on left medial leg. Wet gauze with acetic acid and apply soaked gauze to wound bed. Allow gauze to sit on the 1 for 20 minutes. After the 20 minutes, remove gauze, pat dry and apply gentamicin ointment or cream, cover with plain Aquacel, abd and/or ultra sorb pad, and Kerlix. May moisturize intact skin of the leg if desired by patient. Single Tubigrip from toes to knees. Change M/W/F. - Follow-up with wound care as planned. Plan Discussed with wound care nurse Ordered gentamicin ointment and acetic acid solution Ordered Toradol Consulted orthospine Chronic stable problems: T2DM - HbA1C 6.3 in August, repeat with AM labs, continue metformin Hypothyroidism - TSH with AM labs, continue levothyroxine GERD - continue pantoprazole A. fib - continue metoprolol and Xarelto VTE Prophylaxis - Xarelto CODE STATUS: Full code Admission and Anticipated Discharge Date Admission Date: March 01, 2024 Subjective Patient seen and evaluated at bedside. She reports left arm pain that radiates from her left shoulder to her elbow. She reports intermittent numbne ss/tingling, but denies either at this time. She also notes right-sided pain intermittently as well, though this less severe/less frequent. She denies shortness of breath, difficulty breathing, chest pain, lightheadedness, or dizziness. We discussed the results of her imaging from admission. All questions and concerns were answered. No additional complaints at this time. Physical Exam Physical Exam: General: No acute distress, nondiaphoretic, well-developed, well-nourished. Skin: Left lower extremity with erythema and hyperpigmentation, cooler to touch, cap refill<3 seconds. Strong left pedal pulse. Cardiac: Irregularly irregular, rate controlled in the 80s, without murmurs gallops or rubs. Pulm: Clear to auscultation bilaterally without wheezes, rales or rhonchi. No respiratory distress. 93% on room air. Abdominal: Soft, nontender, nondistended. Bowel sounds present. Neuro: A&O x3. No focal neurological deficits. MSK: No cervical spine tenderness to palpation. Limited left shoulder ROM secondary to pain. Results & Data Results & Data Vital Signs (Past 12 Hours) Vital Signs Temp Pulse Pulse Resp BP Pulse Ox O2 Del Method 03/02/24 08:28 115 H 22 94 Room Air 03/02/24 07:51 98.2 F 91 H 20 161/70 H 94 Room Air 03/02/24 07:30 Room Air 03/01/24 23:56 Room Air, CPAP 03/01/24 23:49 95 H 20 95 Laboratory Results Reviewed CBC Reviewed chemistries Reviewed UA Diagnostic Findings Reviewed echocardiogram Interpretation summary Left ventricular systolic function is normal. The left atrium is borderline dilated. The right atrium is moderate to severely dilated. Right ventricular systolic pressure is normal. No significant valvular heart disease. EF= 60-65%. PG Care Time/CCT Total # of Minutes Spent Total Time Spent with Patient: Total time spent is greater than 50% in coordination of care (as documented) at patient's floor/unit and/or counseling patient: Coding Level of Care Code 99307 SUB INP/OBS CARE 3/50MIN Diagnoses Hypoxia R09.02 Left arm pain M79.602 Venous ulcer of left leg I83.029; Y46.079
[2024-03-02] MEDS: KETOROLAC TROMETHAMINE 15 MG/ML VIAL IV PRN (11:49)
[2024-03-02] MEDS: GENTAMICIN SULFATE 0.1% CR 15 GM TUBE EXT SCH (11:50)
--- NOTE | 2024-03-02 16:06 | Pain Management Consultation ---
Date of Consultation March 02, 2024 Assessment & Plan (1) Type 2 diabetes mellitus with obesity: (2) Venous ulcer of left leg: (3) Left arm pain: (4) Anticoagulant long-term use: (5) Morbid obesity with BMI of 50.0-59.9, adult: (6) Rotator cuff tear arthropathy of left shoulder: Plan Patient's pain is most likely multifactorial, intrinsically in the left shoulder itself, but also from a combination of the cervical spine spondylitic change with variable degrees of central and foraminal stenosis, with the greatest amount of disc material at C5-6 causing compression of the anterior thecal sac with severe left, and moderately severe right, foraminal stenosis. There are similar findings at C6-7, but with only moderately severe foraminal stenosis on the left and right. Additionally, the patient has minimal use of the left shoulder as far as abduction and forward flexion secondary to chronic rotator cuff tear arthropathy, which was likely a result of a past fall and resultant proximal humerus fracture, with then developing atrophy, and possibly a rotator cuff tear that occurred as part of the fall. She has been compensating with use of the deltoid, trapezius, and lateral neck musculature to attempt to lift the arm. 1. Pain management procedural intervention not indicated due to multiple factors, with contraindication to a steroid injection due to: * chronic open wound on the left leg, on antibiotics, and medical comorbidities of diabetes and morbid obesity. 2. Could potentially consider future cervical facet joint medial branch nerve blocks and ablation or left shoulder suprascapular and articular branch of the axillary nerve block/RFA, of which both would be facilitated as an outpatient if pursued. 3. Recommend continued medical management. * Give consideration for increasing gabapentin to 300 mg TID. * Continue acetaminophen as ordered. * May consider starting tramadol if pain warrants doing so and no contraindications. 4. Pain management service will sign off at this time. History of Present Illness Reason for Consultation: "cervical spinal radiculopathy" Requesting Physician: Steven Fong MD Attending Physician: Adolfo Griffith MD History of Present Illness Patient is a 78-year-old female who presented to the ED 110/2/24 on advice of the wound care clinic due to left arm and chest pain. On the day of admission, while in the van on the way to the wound care clinic, she felt her left arm pain, which was symptomatic to her for about a month or so, became much worse with significant pain in her shoulder and upper arm and she was unable to lift her left arm up without assistance, which was new for her. She reported a recent history of falling. She was a relatively poor historian, but did not think she had any problems with this more than a month ago. She felt that her chest pain was related to her weakness in her upper shoulder and was much milder than the pain in her shoulder. Of note, she has been attending the wound care clinic due to a venous ulcer on her left lower leg, and which was reported as improving from the 03/01 note, but remains on Keflex for this. Today, the patient localizes her pain to the left lateral upper arm region about the deltoid. She also has pain in her left trapezius and lateral neck region. Cervical spine MRI demonstrates a severe left sided neuroforaminal stenosis at C5-6. When I visited with the patient, she had only been taking acetaminophen, ibuprofen, and gabapentin. Case discussed with Dr. Tao. Pain Assessment Full Body Front + Back: 2 1. 2. 3. Allergies Allergy/AdvReac Type Severity Reaction Status Date / Time pecan nut Allergy Severe TONGUE Verified 03/01/24 15:56 SWELLS house dust Allergy Intermediate SNEEZING, Verified 03/01/24 15:56 CONGESTION Sulfa (Sulfonamide AdvReac Intermediate YEAST Verified 03/01/24 15:56 Antibiotics) INFECTION Home Medications Medication Instructions Recorded Confirmed Type calcium 500 mg (as 1 tab PO QPM 01/14/19 03/06/24 History carbonate)-vitamin D3 5 mcg (200 unit) tablet cyclosporine 0.05 % eye drops in a 1 drops ophthalmic (eye) BID 01/14/19 03/06/24 History dropperette (Restasis) docusate sodium 100 mg capsule 100 mg PO QAM PRN Constipation 01/14/19 03/06/24 History latanoprost 0.005 % eye drops 1 drops ophthalmic (eye) HS 01/14/19 03/06/24 History nebulizer accessories #1 ea 03/26/20 03/06/24 Rx nebulizers #1 ea 09/09/20 03/06/24 Rx compression socks, x-large #2 ea 11/07/20 03/06/24 Rx miscellaneous medical supply #1 ea 11/07/20 03/06/24 Rx Shower Chair #1 ea 01/22/22 03/06/24 Rx nebulizer accessories #1 ea 01/27/22 03/06/24 Rx ascorbic acid (vitamin C) 500 mg 500 mg PO QPM 09/15/22 03/06/24 History tablet (Vitamin C) guaifenesin 600 mg tablet, 600 mg PO BID 09/15/22 03/06/24 History extended release 12 hr (Mucinex) rivaroxaban 20 mg tablet 20 mg PO QPM #90 tabs 03/04/23 03/06/24 Rx nystatin 100,000 unit/gram topical 1 applic topical TID PRN Skin 03/16/23 03/06/24 Rx cream Irritation #30 grams benzonatate 200 mg capsule 200 mg PO TID PRN Cough 07/09/23 03/06/24 History nebulizer accessories #1 ea 07/12/23 03/06/24 Rx sodium chloride, sodium See Rx Instructions .Route 07/19/23 03/06/24 Rx bicarb-nasal rinse squeeze bottle .COMPLEX #50 ea with packet (Neilmed Sinus Rinse Complete with packet) furosemide 20 mg tablet 20 mg PO QAM #90 tabs 08/04/23 03/06/24 Rx walker #1 ea 08/30/23 03/06/24 Rx cimetidine 400 mg tablet 400 mg PO DAILY 90 days #90 tabs 09/07/23 03/06/24 Rx azithromycin 250 mg tablet 250 mg PO MOWEFR 30 days #18 tabs 09/08/23 03/06/24 Rx pantoprazole 40 mg tablet,delayed 40 mg PO QAM #90 tabs 09/17/23 03/06/24 Rx release amlodipine 5 mg tablet 5 mg PO QAM #90 tabs 10/11/23 03/06/24 Rx arformoterol 15 mcg/2 mL solution 2 ml inhalation BID #120 mL 12/14/23 03/06/24 Rx for nebulization (Brovana) metoprolol succinate 100 mg 100 mg PO QAM #90 ea 12/27/23 03/06/24 Rx capsule sprinkle, ext. release 24 hr chlorpheniramine maleate 4 mg 4 mg PO Q12H 90 days #180 tabs 01/04/24 03/06/24 Rx tablet (Allergy Relief (chlorpheniramine)) metformin 500 mg tablet 500 mg PO DAILY #30 tabs 02/06/24 03/06/24 Rx gentamicin 0.1 % topical ointment 1 applic topical DAILY 2 weeks #30 02/21/24 03/06/24 Rx grams CPAP Machine #1 ea 02/22/24 03/06/24 Rx atorvastatin 20 mg tablet 20 mg PO QAM 90 days #90 tabs 02/22/24 03/06/24 Rx budesonide 0.5 mg/2 mL suspension 0.5 mg (2 mL) inhalation BID #120 02/22/24 03/06/24 Rx for nebulization mL fluticasone propionate 50 1 spray intranasal BID #18.2 mL 02/22/24 03/06/24 Rx mcg/actuation nasal spray,suspension (Flonase Allergy Relief) gabapentin 300 mg capsule 300 mg PO BID #180 caps 02/22/24 03/06/24 Rx levothyroxine 75 mcg tablet 75 mcg PO QAM #90 tabs 02/22/24 03/06/24 Rx montelukast 10 mg tablet 10 mg PO HS #90 tabs 02/22/24 03/06/24 Rx alendronate 70 mg tablet (Fosamax) 70 mg PO WK 03/01/24 03/06/24 History acetaminophen 500 mg tablet 1,000 mg (2 x 500 mg) PO TID #0 03/04/24 03/06/24 Rx (Tylenol Extra Strength) tabs acetic acid 0.25 % irrigation 1 irrig irrigation DAILY #3,000 mL 03/04/24 03/06/24 Rx solution Pain History Pain Location Full Body Front + Back: 2 1. 2. 3. Co-morbid Medical Conditions Co-morbid Medical Conditions: Obesity, Anti-coagulant meds and Other (open wound) Patient History Medical History COPD exacerbation Acute on chronic respiratory failure with hypoxia Rhinovirus infection Elevated brain natriuretic peptide (BNP) level Shortness of breath History of skin ulcer of lower extremity lt leg, currently has healing wounds/ulcers, being treated in [facility] wound care Morbid obesity with BMI of 45.0-49.9, adult History of intestinal obstruction History of gout Hoarseness of voice Hypothyroidism Prediabetes diet controlled-"i'm not very good at following it" History of basal cell carcinoma Glaucoma PVD (peripheral vascular disease) Osteoarthritis HLD (hyperlipidemia) On home oxygen therapy 2 lpm qHS and prn Peripheral neuropathy Sacral fracture As seen on MRI 01/25/2020, occult right hemisacrum fracture Asthma inhaler daily/prn, nebulizer prn Afib on xarelto; follows with Dr. Zimmer Surgical History Cataract extraction status, right eye Hx of cataract extraction LT. Status post sclerotherapy of varicose veins (~11/06/20) @ [facility] History of tooth extraction History of intestinal surgery S/P thyroid biopsy History of basal cell carcinoma (BCC) excision Status post endovenous radiofrequency ablation of saphenous vein History of endovenous ablation of incompetent vein radiofrequency. Type of vein not specified in CCD History of total knee arthroplasty Rt History of hernia repair History of decompression of median nerve at carpal tunnel (neuroplasty) History of total abdominal hysterectomy bso History of laparoscopic cholecystectomy Family History Father Skin cancer Pulmonary embolism Father Gout Other No family history of adverse response to anesthesia Denies family history of Ovarian cancer Prostate cancer Myocardial infarction Breast cancer Lung cancer Colorectal cancer Social History (Updated 01/19/24 @ 11:01 by Jaclyn Chu, DONATO) Smoking Status: Never smoker Second Hand Exposure: No; Do You Dip or Chew Tobacco: No; Hx Alcohol Use: No Hx Substance Use: No Preferred Language: Icelandic Communication Ability: Effective Visual Impairment: Limited Hearing Ability: Normal Sales Team Leader Required: No Beliefs That Will Affect Care: None marital status: Current Living Situation: Alone current occupational status: retired 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 ONE CHILD IN [place]. AND ANOTHER LIVES ABOUT AN HOUR AND 1/2 AWAY FROM . Feels Safe at Home: Yes Safety Concerns Comment: Considered Life Alert but has her phone with her. Childhood Exposure to Second-Hand Smoke: No Diet: low salt caffeine: Yes (1-2 cups in am per day.) during the past year weight has: remained stable Dental Care, Regularly: Yes Physical Activity Frequency: Does not Exercise Seatbelt Use: always Sunscreen Use: Yes Do you think of yourself as: straight/heterosexual Gender Identity: Female Assistive Devices: Cane and Walker Physical Exam 2 Physical Exam: GENERAL: Speech and cognition is intact. Mood and affect is appropriate. In no acute distress. HEAD: Normocephalic; atraumatic. NECK: Diminished ROM; trachea is midline; + TTP left neck and trapezius; no cervical lymphadenopathy. EXTREMITIES: + TTP left lateral shoulder region. Distal sensation and pulses intact bilaterally. SKIN: No lesions, erythema, or rashes noted. Upper extremity resisted strength testing: L elbow flexion - 5/5 L elbow extension - 5/5 L shoulder abduction ( and foward flexion) - 2+/5 L wrist extension - 5/5 L wrist flexion - 5/5 L hand intrinsics - 3-/5 L 5th digit ADM - 3/5 Special tests: Negative Wartenberg sign left Musculoskeletal: Shoulder: + limited ROM (left); no skin erythema Results (Pain Clinic) Diagnostic Review MRI Findings: Exam(s): MRI C SPINE EXAM: MR Cervical Spine Without Intravenous Contrast CLINICAL HISTORY: Reason for exam: Left arm pain weakness ?neural foraminal stenosis. TECHNIQUE: Magnetic resonance images of the cervical spine without intravenous contrast in multiple planes. COMPARISON: None. FINDINGS: Diagnostic sensitivity is reduced by motion artifact. Vertebrae: There is a 3 mm C5 retrolisthesis. No acute fracture. Spinal cord: Unremarkable. Normal signal. Soft tissues: Unremarkable. DISCS/SPINAL CANAL/NEURAL FORAMINA: C2-C3: Unremarkable. No significant disc disease. No stenosis. C3-C4: Posteriorly centrally shallow mild disc bulging. Minimal anterior thecal sac effacement. Moderate right and mild left foraminal stenosis. C4-C5: Mild/moderate posterior disc bulging. Mild anterior thecal sac effacement. Moderate left and mild right foraminal stenosis. C5-C6: Moderately large posterior disc bulging with disc osteophyte complex/endplate changes is seen causing effacement of the anterior thecal sac without abutment of the cord. There is severe left and moderately severe right foraminal stenosis. C6-C7: Moderately large size posterior disc bulging and symmetrical endplate changes are seen with anterior thecal sac compression and moderately severe bilateral foraminal stenosis. C7-T1: Mild/moderate posterior disc bulging/endplate changes are seen with mild/moderate right and mild left foraminal narrowing. Minimal anterior thecal sac compression. IMPRESSION: This unenhanced MRI of the cervical spine demonstrates multilevel degenerative disc/endplate spondylitic changes with variable degrees of foraminal and central canal stenosis as described above. The greatest amount of disc material present at C5-C6 level with compression of the anterior thecal sac and severe left/moderately severe right foraminal stenosis. . Electronically signed by: Stalin Mayen MD, MORALES 03/01/24 20:48 PM Dictated: 03/01/242047 Transcribed: 03/01/242047 Radiology Findings: XR shoulder LT min 2V routine HISTORY: 78 years-old Female l shoulder pain acute left shoulder pain COMPARISON: 07/18/2013 TECHNIQUE: 3 views of the left shoulder FINDINGS: Healed chronic proximal left humeral fracture deformity. Mild AC joint with moderate glenohumeral osteoarthritis. Chronic appearing left-sided rib fractures. No acute fracture or dislocation identified. IMPRESSION: No acute fracture or dislocation identified. ACT 112: Negative or not required by law. The above report was generated using voice recognition software. It may contain grammatical, syntax or spelling errors. Electronically signed by: Delgado Jakc M.D. 03/01/2024 12:16 PM Dictated: 03/01/241214 Transcribed: 03/01/241214
[2024-03-02] MEDS: FAMOTIDINE 20 MG TAB PO SCH (16:44)
[2024-03-03] MEDS: ACETIC ACID 0.25% IRRIG SOLN 1000 ML PLCT IR SCH (08:32)
--- NOTE | 2024-03-03 11:55 | Orthopedic Consultation ---
Date of Consultation March 03, 2024 Assessment & Plan (1) Cervical stenosis of spinal canal: Assessment cervical spinal stenosis with intermittent radiculopathy. Plan at this time the patient does have evidence of cervical disease that could contribute to cervical radiculopathy. I do not see any acute event that would require urgent surgery. She obviously is medically compromised and would be a very poor surgical candidate. I did recommend she continue with interventional pain management and perhaps physical therapy. Otherwise surgery would have nothing to offer at this point. History of Present Illness Reason for Consultation: Neck and arm pain Attending Physician: Rachael Zheng MD History of Present Illness This is a 78-year-old female who presents to the hospital with multiple medical issues. She does note cervicalgia with pain down predominantly her left arm. She denies any precipitating trauma fall or event. She denies any issues with cervical range of motion or weakness. Allergies Allergy/AdvReac Type Severity Reaction Status Date / Time pecan nut Allergy Severe TONGUE Verified 03/01/24 15:56 SWELLS house dust Allergy Intermediate SNEEZING, Verified 03/01/24 15:56 CONGESTION Sulfa (Sulfonamide AdvReac Intermediate YEAST Verified 03/01/24 15:56 Antibiotics) INFECTION Home Medications Medication Instructions Recorded Confirmed Type calcium 500 mg (as 1 tab PO QPM 01/14/19 03/01/24 History carbonate)-vitamin D3 5 mcg (200 unit) tablet cyclosporine 0.05 % eye drops in a 1 drops ophthalmic (eye) BID 01/14/19 03/01/24 History dropperette (Restasis) docusate sodium 100 mg capsule 100 mg PO QAM PRN Constipation 01/14/19 03/01/24 History latanoprost 0.005 % eye drops 1 drops ophthalmic (eye) HS 01/14/19 03/01/24 History nebulizer accessories #1 ea 03/26/20 03/01/24 Rx nebulizers #1 ea 09/09/20 03/01/24 Rx compression socks, x-large #2 ea 11/07/20 03/01/24 Rx miscellaneous medical supply #1 ea 11/07/20 03/01/24 Rx Shower Chair #1 ea 01/22/22 03/01/24 Rx nebulizer accessories #1 ea 01/27/22 03/01/24 Rx ascorbic acid (vitamin C) 500 mg 500 mg PO QPM 09/15/22 03/01/24 History tablet (Vitamin C) guaifenesin 600 mg tablet, 600 mg PO BID 09/15/22 03/01/24 History extended release 12 hr (Mucinex) rivaroxaban 20 mg tablet 20 mg PO QPM #90 tabs 03/04/23 03/01/24 Rx nystatin 100,000 unit/gram topical 1 applic topical TID PRN Skin 03/16/23 03/01/24 Rx cream Irritation #30 grams benzonatate 200 mg capsule 200 mg PO TID PRN Cough 07/09/23 03/01/24 History nebulizer accessories #1 ea 07/12/23 03/01/24 Rx sodium chloride, sodium See Rx Instructions .Route 07/19/23 03/01/24 Rx bicarb-nasal rinse squeeze bottle .COMPLEX #50 ea with packet (Neilmed Sinus Rinse Complete with packet) furosemide 20 mg tablet 20 mg PO QAM #90 tabs 08/04/23 03/01/24 Rx walker #1 ea 08/30/23 03/01/24 Rx cimetidine 400 mg tablet 400 mg PO DAILY 90 days #90 tabs 09/07/23 03/01/24 Rx azithromycin 250 mg tablet 250 mg PO MOWEFR 30 days #18 tabs 09/08/23 03/01/24 Rx pantoprazole 40 mg tablet,delayed 40 mg PO QAM #90 tabs 09/17/23 03/01/24 Rx release amlodipine 5 mg tablet 5 mg PO QAM #90 tabs 10/11/23 03/01/24 Rx arformoterol 15 mcg/2 mL solution 2 ml inhalation BID #120 mL 12/14/23 03/01/24 Rx for nebulization (Brovana) metoprolol succinate 100 mg 100 mg PO QAM #90 ea 12/27/23 03/01/24 Rx capsule sprinkle, ext. release 24 hr chlorpheniramine maleate 4 mg 4 mg PO Q12H 90 days #180 tabs 01/04/24 03/01/24 Rx tablet (Allergy Relief (chlorpheniramine)) metformin 500 mg tablet 500 mg PO DAILY #30 tabs 02/06/24 03/01/24 Rx cephalexin 500 mg capsule 500 mg PO TID 10 days #30 caps 02/21/24 03/01/24 Rx gentamicin 0.1 % topical ointment 1 applic topical DAILY 2 weeks #30 02/21/24 03/01/24 Rx grams CPAP Machine #1 ea 02/22/24 03/01/24 Rx atorvastatin 20 mg tablet 20 mg PO QAM 90 days #90 tabs 02/22/24 03/01/24 Rx budesonide 0.5 mg/2 mL suspension 0.5 mg (2 mL) inhalation BID #120 02/22/24 03/01/24 Rx for nebulization mL fluticasone propionate 50 1 spray intranasal BID #18.2 mL 02/22/24 03/01/24 Rx mcg/actuation nasal spray,suspension (Flonase Allergy Relief) gabapentin 300 mg capsule 300 mg PO BID #180 caps 02/22/24 03/01/24 Rx levothyroxine 75 mcg tablet 75 mcg PO QAM #90 tabs 02/22/24 03/01/24 Rx montelukast 10 mg tablet 10 mg PO HS #90 tabs 02/22/24 03/01/24 Rx alendronate 70 mg tablet (Fosamax) 70 mg PO WK 03/01/24 03/01/24 History Patient History Medical History COPD exacerbation Acute on chronic respiratory failure with hypoxia Rhinovirus infection Elevated brain natriuretic peptide (BNP) level Shortness of breath History of skin ulcer of lower extremity lt leg, currently has healing wounds/ulcers, being treated in [facility] wound care Morbid obesity with BMI of 45.0-49.9, adult History of intestinal obstruction History of gout Hoarseness of voice Hypothyroidism Prediabetes diet controlled-"i'm not very good at following it" History of basal cell carcinoma Glaucoma PVD (peripheral vascular disease) Osteoarthritis HLD (hyperlipidemia) On home oxygen therapy 2 lpm qHS and prn Peripheral neuropathy Sacral fracture As seen on MRI 01/25/2020, occult right hemisacrum fracture Asthma inhaler daily/prn, nebulizer prn Afib on xarelto; follows with Dr. Zimmer Surgical History Cataract extraction status, right eye Hx of cataract extraction LT. Status post sclerotherapy of varicose veins (~11/06/20) @ [facility] History of tooth extraction History of intestinal surgery S/P thyroid biopsy History of basal cell carcinoma (BCC) excision Status post endovenous radiofrequency ablation of saphenous vein History of endovenous ablation of incompetent vein radiofrequency. Type of vein not specified in CCD History of total knee arthroplasty Rt History of hernia repair History of decompression of median nerve at carpal tunnel (neuroplasty) History of total abdominal hysterectomy bso History of laparoscopic cholecystectomy Family History Father Skin cancer Pulmonary embolism Father Gout Other No family history of adverse response to anesthesia Denies family history of Ovarian cancer Prostate cancer Myocardial infarction Breast cancer Lung cancer Colorectal cancer Social History (Updated 01/19/24 @ 11:01 by Jaclyn Chu RN) Smoking Status: Never smoker Second Hand Exposure: No; Do You Dip or Chew Tobacco: No; Hx Alcohol Use: No Hx Substance Use: No Preferred Language: Paraguayan Communication Ability: Effective Visual Impairment: Limited Hearing Ability: Normal Shell Maker Lockstitch Required: No Beliefs That Will Affect Care: None marital status: Current Living Situation: Alone current occupational status: retired 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 ONE CHILD IN [place]. AND ANOTHER LIVES ABOUT AN HOUR AND 1/2 AWAY FROM . Other Information That Helps Us Care for You: No Feels Safe at Home: Yes Safety Concerns: Feels Safe At This Time Safety Concerns Comment: Considered Life Alert but has her phone with her. Childhood Exposure to Second-Hand Smoke: No Diet: low salt caffeine: Yes (1-2 cups in am per day.) during the past year weight has: remained stable Dental Care, Regularly: Yes Physical Activity Frequency: Does not Exercise Seatbelt Use: always Sunscreen Use: Yes Do you think of yourself as: straight/heterosexual Gender Identity: Female Assistive Devices: Cane and Walker Physical Exam Physical Exam: On exam the patient is pleasant and comfortable. She has reasonable strength testing upper extremities. Sensory is intact. She has full cervical range of motion without Lhermitte's phenomenon or Spurling sign. Results & Data Vital Signs (Past 12 Hours) Vital Signs Temp Pulse Resp BP Pulse Ox O2 Del Method O2 Flow Rate 03/03/24 08:25 36.8 C 78 16 154/81 H 95 Room Air 03/03/24 07:42 Nasal Cannula 2 03/03/24 07:32 89 20 93 Room Air
--- NOTE | 2024-03-03 18:12 | Hospitalist Progress Note ---
Date of Service March 03, 2024 Assessment & Plan (1) Hypoxia: Plan: Main reason for admission, suspect mostly positional in setting of moderate LISSETH (recently diagnosed and does not yet have CPAP) and COPD No respiratory distress Low suspicion of PE while on Xarelto CXR unremarkable Incentive spirometer CPAP HS or while napping Solu-medrol and duoneb given in the ER but no definitive improvement per patient following this TTE with bubble study showed EF 60-65%, no significant valvular heart disease Has been stable on room air while awake (2) Left arm pain: Plan: Radicular symptoms down left arm - Brain MRI negative for acute infarction, hemorrhage, or intracranial mass - Cervical spine MRI revealed C5-C6 compression of the anterior thecal sac and severe left/moderately severe right foraminal stenosis > Ortho spine consulted -- no surgical intervention at this time - Pain management consulted given cervical spine radiculopathy > Procedural intervention not indicated, with contraindication to steroid injection due to chronic open wound on left leg, antibiotics, diabetes and morbid obesity > Could consider cervical facet joint medial branch nerve blocks and ablation or left shoulder suprascapular and articular branch of the axillary nerve block/RFA in the outpatient setting > Could consider increasing gabapentin to 300 mg 3 times daily > Could consider starting tramadol if pain warrants and no contraindications - Pain well-controlled currently so no additions/changes to pain regimen at this time - Unclear if plan is for home health or rehab on discharge (3) Venous ulcer of left leg: Plan: Continue wound care as ordered - Clean and dry wound on left medial leg. Wet gauze with acetic acid and apply soaked gauze to wound bed. Allow gauze to sit on the 1 for 20 minutes. After the 20 minutes, remove gauze, pat dry and apply gentamicin ointment or cream, cover with plain Aquacel, abd and/or ultra sorb pad, and Kerlix. May moisturize intact skin of the leg if desired by patient. Single Tubigrip from toes to knees. Change M/W/F. - Follow-up with wound care as planned. Plan Chronic stable problems: T2DM - HbA1C 6.3 in August, repeat with AM labs, continue metformin Hypothyroidism - TSH with AM labs, continue levothyroxine GERD - continue pantoprazole A. fib - continue metoprolol and Xarelto VTE Prophylaxis - Xarelto CODE STATUS: Full code Admission and Anticipated Discharge Date Admission Date: March 03, 2024 Subjective Patient seen and evaluated in bedside chair. She reports that her pain is better controlled today. She reports she had a nosebleed around lunchtime, but states she gets these intermittently. Patient voices concerns about returning home after discharge because she lives alone. No additional complaints or concerns at this time. Physical Exam Physical Exam: General: No acute distress, nondiaphoretic, well-developed, well-nourished. Skin: Left lower extremity wrapped in dressing with erythema and hyperpigmentation, cooler to touch, cap refill<3 seconds. Strong left pedal pulse. Cardiac: Irregularly irregular, rate controlled in the 80s, without murmurs gallops or rubs. Pulm: Clear to auscultation bilaterally without wheezes, rales or rhonchi. No respiratory distress. 95% on room air. Abdominal: Soft, nontender, nondistended. Bowel sounds present. Neuro: A&O x3. No focal neurological deficits. MSK: No cervical spine tenderness to palpation. Limited left shoulder ROM secondary to pain. Results & Data Results & Data Vital Signs (Past 12 Hours) Vital Signs Temp Pulse Resp BP Pulse Ox O2 Del Method O2 Flow Rate 03/03/24 15:42 98.8 F 98 H 16 130/72 95 Room Air 03/03/24 08:25 98.2 F 78 16 154/81 H 95 Room Air 03/03/24 07:42 Nasal Cannula 2 03/03/24 07:32 89 20 93 Room Air PG Care Time/CCT Total # of Minutes Spent Total Time Spent with Patient: Total time spent is greater than 50% in coordination of care (as documented) at patient's floor/unit and/or counseling patient: Coding Level of Care Code 51608 SUB INP/OBS CARE 2/35MIN Diagnoses Hypoxia R09.02 Left arm pain M79.602 Venous ulcer of left leg I83.029; L97.929
[2024-03-04 09:00] VITALS: BP 152/78; PULSE 82; RESP 16; TEMP 98.2; O2SAT 96
[2024-03-04] MEDS: DIPHTHER/TETAN/PERTUS Vaccine (Tdap, Adol/Adult) 0.5mL IM ONE (13:34)
[2024-03-04] MEDS: INFLUENZA VACC TS2024-25(6m+)/PF (IIV3) 0.5mL Syr IM ONE (13:36)
[2024-03-04] MEDS: [UNRECOGNIZED DRUG - OTHER] IM ONE (15:53)
--- NOTE | 2024-03-04 16:46 | Discharge Summary ---
Discharge Summary Date of Service March 04, 2024 Principal Dx & Hospital Course #1 = Principal Diagnosis (1) Hypoxia: Main reason for admission, suspect mostly positional/atelectasis and hypoventilation in setting of moderate LISSETH (recently diagnosed and does not yet have CPAP) morbid obesity with BMI 53, and COPD No respiratory distress Low suspicion of PE while on Xarelto CXR unremarkable Incentive spirometer CPAP HS or while napping Solu-medrol and duoneb given in the ER but no definitive improvement per patient following this TTE with bubble study showed EF 60-65%, no significant valvular heart disease Has been stable on room air while awake -continue nocturnal home O2 2L pending delivery of new CPAP machine (2) Left arm pain: Radicular symptoms down left arm - Brain MRI negative for acute infarction, hemorrhage, or intracranial mass - Cervical spine MRI revealed C5-C6 compression of the anterior thecal sac and severe left/moderately severe right foraminal stenosis > Ortho spine consulted -- no surgical intervention at this time, no e/o myelopathy and high risk for surgery - Pain management consulted for cervical spine radicular pain > Procedural intervention not indicated, with contraindication to steroid injection due to chronic open wound on left leg, antibiotics, diabetes and morbid obesity > Could consider cervical facet joint medial branch nerve blocks and ablation or left shoulder suprascapular and articular branch of the axillary nerve block/RFA in the outpatient setting > Could consider increasing gabapentin to 300 mg 3 times daily > Could consider starting tramadol if pain warrants and no contraindications - Pain well-controlled currently on scheduled APAP so no additions/changes to pain regimen at this time - referral made to outpatient pain clinic Discharged with home health PT, OT, RN for wound care (3) Venous ulcer of left leg: L leg venous stasis ulcer present on admission Continue wound care as ordered - keep elevated - Clean and dry wound on left medial leg. Wet gauze with acetic acid and apply soaked gauze to wound bed. Allow gauze to sit on the 1 for 20 minutes. After the 20 minutes, remove gauze, pat dry and apply gentamicin ointment or cream, cover with plain Aquacel, abd and/or ultra sorb pad, and Kerlix. May moisturize intact skin of the leg if desired by patient. Single Tubigrip from toes to knees. Change M/W/F. - Follow-up with wound care as planned- has had home health RN for dressing changes and also follows with wound clinic wound does not appear infected but wound culture was taken and it is colonized with Pseudomonas and Staph aureus Plan Chronic stable problems: T2DM - A1c 6.2, continue metformin Hypothyroidism - TSH 0.46, continue levothyroxine GERD - continue pantoprazole A. fib - continue metoprolol and Xarelto Notes For Next Care Provider influenza and tetanus vaccinations administered prior to discharge charge, COVID-vaccine requested but not available in the hospital at this time Admission HPI Per Admitting Provider Genesis Alfonso is a 78-year-old female who presents to the ER on advice of the wound care clinic due to left arm and chest pain. She reports her symptoms have been ongoing intermittently for the last month. Today while in the van on the way to wound care clinic she feels her left arm became much worse with significant pain in her shoulder and upper arm and she has been unable to lift her left arm up without assistance which is new. Occasionally this pain comes from her hull and she has been feeling lumps in her neck. She reports recent history of falling. She gives an unsure history but does not think she had any problems with this more than a month ago. She feels the chest pain is related to her weakness in her upper shoulder and is much milder than the pain in her shoulder. She denies any vision, speech, hearing or lower extremity weakness or change in sensation. She is currently going to wound care clinic due to a venous ulcer on her left leg which is currently newly wrapped but reported as improving from today's note but remains on Keflex for this. In the ER she was noted to be hypoxic down to mid 80s at rest. She reports wearing oxygen at night but not during the day. She recently had sleep study but has not yet received those results, until I told her today, showing moderate sleep apnea and she hasn't yet started on CPAP at home. Discharge Exam PHYSICAL EXAMINATION Last 24h vital signs reviewed, see documentation in flowsheet General: comfortable appearing, no distress, sitting up in chair HEENT: Normocephalic, atraumatic, pupils round and equal, sclerae anicteric, no conjunctival injection, moist mucus membranes Lungs: Normal respiratory effort. Clear to auscultation bilaterally except bibasilar crackles which are coarse and improved with successive respirations consistent with atelectasis. no wheezing Heart: Regular rate and rhythm, no murmurs. No JVD Abdomen: Soft, nontender, nondistended. Bowel sounds present. Extremities: Warm, dry, well-perfused. mild LE extremity edema. left lower leg is covered in dressing and Tubigrip, reviewed photo from recent wound nurse visit does not appear infected Neuro: Alert and oriented x 4, face symmetric, moves 4 extremities well Psych: Normal affect and behavior Discharge Plan Discharge Items Patient Disposition: Home - Home Health Services Reason For Visit: HYPOXIA, LEFT SHOUDLER/ARM PAIN Discharge Diagnosis: Obstructive sleep apnea, left leg venous stasis ulcer, neck/ L arm pain Activity: Resume your previous activity Weightbearing: Full weightbearing Non-emergency contact: Primary Care Provider and Pain Management Call non-emergency contact if: you have any medication questions, your symptoms worsen, your temperature is above 101, your wound has increased redness, your wound has increased drainage and your wound pain has increased Follow-up/Referrals: Cyndy Stringer MD [Primary Care Provider] - 03/15/24 11:00 am Diet: Carb Consistent or DM2 and Low Sodium (2gm) Addtl Attending Provider Instructions: home health PT, OT, and RN for wound care and diabetes Your neck / left arm pain is related to some disc bulging. the spine surgeon did not recommend surgery at this time, and you are high risk for having surgical complications. follow up with pain clinic as needed to consider inj ections -you can take acetaminophen or ibuprofen for neck pain -you can use heat or ice as needed When your CPAP is delivered, wear it nightly and with naps Otherwise, use your oxygen while sleeping Keep your legs elevated while at rest, this will help with swelling Clean and dry wound on left medial leg. Wet gauze with acetic acid and apply soaked gauze to wound bed. Allow gauze to sit on the wound for 20 minutes. After the 20 minutes remove gauze, pat dry and apply gentamycin ointment or cream, cover with plain aquacel, abd and or ultrasorb pad, and kerlix. May moisturize intact skin of leg if desired by patient. Single tubigrip from toes to knee. Change M -W-F. Follow up with wound care as planned . -Wound Care Followup [facility] Pending Studies at Discharge: No Stand-Alone Forms: My [facility], Smoking Cessation Medications and DC Order Prescriptions: New acetaminophen [Tylenol Extra Strength] 500 mg Tablet 1,000 mg PO TID Qty: 0 0RF acetic acid 0.25 % Solution 1 irrig irrigation DAILY Qty: 3000 1RF Continued (DME) nebulizer accessories Misc See Rx Instructions .ROUTE .MEDSUPPLY Qty: 1 0RF Rx Instructions: NEBULIZER TUBING. (DME) nebulizers Misc See Rx Instructions .ROUTE .MEDSUPPLY Qty: 1 0RF Rx Instructions: Nebulizer and nebulizer set up. DX: J44.9 (DME) compression socks, x-large Misc See Rx Instructions .ROUTE .MEDSUPPLY Qty: 2 0RF Rx Instructions: SIZE X-LARGE WITHOUT TOES R60.9 I87.2 (DME) miscellaneous medical supply Misc See Rx Instructions .ROUTE .MEDSUPPLY Qty: 1 0RF Rx Instructions: OXYGEN TUBING J45.909 J98.4 G47.34 (DME) nebulizer accessories Kit See Rx Instructions .Route Qty: 1 0RF Rx Instructions: As directed nystatin 100,000 unit/gram cream 1 applic TOP TID PRN (Reason: Skin Irritation) Qty: 30 1RF Patient Comments: pt stated she only uses the cream Rx Instructions: alternate application with powder benzonatate 200 mg capsule 200 mg PO TID PRN (Reason: Cough) Patient Comments: CONFIRMED W/ PT AND ON CC DC SUMMARY 07/09 furosemide 20 mg tablet 20 mg PO QAM Qty: 90 3RF Rx Instructions: TAKE 1 TABLET BY MOUTH EVERY MORNING (DME) walker Misc See Rx Instructions .Route Qty: 1 0RF Rx Instructions: As directed pantoprazole 40 mg tablet,delayed release (DR/EC) 40 mg PO QAM Qty: 90 3RF amlodipine 5 mg tablet 5 mg PO QAM Qty: 90 3RF arformoterol [Brovana] 15 mcg/2 mL solution for nebulization 2 ml inhalation BID Qty: 120 3RF metoprolol succinate 100 mg capsule,sprinkle,ER 24hr 100 mg PO QAM Qty: 90 3RF chlorpheniramine maleate [Allergy Relief(chlorpheniramn)] 4 mg tablet 4 mg PO Q12H 90 Days Qty: 180 0RF metformin 500 mg tablet 500 mg PO DAILY Qty: 30 2RF gentamicin 0.1 % ointment 1 applic topical DAILY 14 Days Qty: 30 2RF levothyroxine 75 mcg tablet 75 mcg PO QAM Qty: 90 3RF montelukast 10 mg tablet 10 mg PO HS Qty: 90 3RF atorvastatin 20 mg tablet 20 mg PO QAM 90 Days Qty: 90 3RF Patient Comments: around noon gabapentin 300 mg capsule 300 mg PO BID Qty: 180 3RF (DME) CPAP Machine Misc See Rx Instructions .Route Qty: 1 0RF Rx Instructions: As directed 8cmH20 with C-Flex of 1 fluticasone propionate [Flonase Allergy Relief] 50 mcg/actuation spray,suspension 1 spray intranasal BID Qty: 18.2 2RF Rx Instructions: administer into each nostril budesonide 0.5 mg/2 mL suspension for nebulization 0.5 mg inhalation BID Qty: 120 2RF rivaroxaban 20 mg tablet 20 mg PO QPM Qty: 90 3RF cimetidine 400 mg tablet 400 mg PO DAILY 90 Days Qty: 90 2RF Rx Instructions: administer with dinner azithromycin 250 mg tablet 250 mg PO MOWEFR 30 Days Qty: 18 6RF Rx Instructions: Take 1 tablet orally every Wednesday, Wednesday, and Wednesday (DME) Shower Chair Misc See Rx Instructions .Route Qty: 1 0RF Rx Instructions: Bariatric shower chair calcium carbonate-vitamin D3 500 mg(1,250mg) -200 unit tablet 1 tab PO QPM Patient Comments: evening cyclosporine [Restasis] 0.05 % dropperette 1 drops ophthalmic (eye) BID docusate sodium 100 mg capsule 100 mg PO QAM PRN (Reason: Constipation) latanoprost 0.005 % drops 1 drops OP HS (DME) nebulizer accessories Misc See Rx Instructions .ROUTE .MEDSUPPLY Qty: 1 0RF Rx Instructions: NEBULIZER TUBING R06.00 J98.4 J45.909 Neilmed Sinus Rinse Complete Packet With Rinse Device See Rx Instructions .Route .COMPLEX Qty: 50 3RF Rx Instructions: use daily; ascorbic acid (vitamin C) [Vitamin C] 500 mg Tablet 500 mg PO QPM Patient Comments: noon guaifenesin [Mucinex] 600 mg tablet extended release 12hr 600 mg PO BID Rx Instructions: OTC alendronate [Fosamax] 70 mg tablet 70 mg PO WK Rx Instructions: Take 1 tab once weekly with 8 oz. plain water; wait 45 minutes before eating/drinking anything else. Mondays Discontinued cephalexin 500 mg capsule 500 mg PO TID 10 Days Qty: 30 0RF Rx Instructions: Start Date 02/21/24 x10 day supply Discharge Orders: Discharge Order (Routine); Ordered 03/04/24 Ordered By: Rachael Shell/Other Patient Handouts: Managing Type 2 Diabetes Admission Data Admit Date/Time: 03/03/24 13:04 Attending Provider: Rachael Zheng Admit Provider: Stevne Fong Primary Care Provider: Cyndy Stringer Other Providers: Steven Fong; Kana Tao; Rikki Galeas Other Interventions: Discharge Summary Assessment (RN) Last Done: 03/04/24 16:31 Hospital Stay Data Consultations 03/01/24 13:35 ED Decision to Admit Stat 03/01/24 22:53 Consult Pain Management Routine 03/02/24 09:28 Consult Orthopedic Spine Surgery Routine 03/04/24 11:08 [facility] Routine Diagnostic Imagining Performed 03/01/24 11:21 CT head/brain wo con Stat 03/01/24 15:23 MRI Brain [MR brain wo con] Routine MRI Cervical [MR cervical spine wo con] Routine Pending Results Patient Have Any Pending Studies at Discharge: No Discharge Instructions Given to Patient (Per Discharging Provider) home health PT, OT, and RN for wound care and diabetes Your neck / left arm pain is related to some disc bulging. the spine surgeon did not recommend surgery at this time, and you are high risk for having surgical complications. follow up with pain clinic as needed to consider injections -you can take acetaminophen or ibuprofen for neck pain -you can use heat or ice as needed When your CPAP is delivered, wear it nightly and with naps Otherwise, use your oxygen while sleeping Keep your legs elevated while at rest, this will help with swelling Clean and dry wound on left medial leg. Wet gauze with acetic acid and apply soaked gauze to wound bed. Allow gauze to sit on the wound for 20 minutes. After the 20 minutes remove gauze, pat dry and apply gentamycin ointment or cream, cover with plain aquacel, abd and or ultrasorb pad, and kerlix. May moisturize intact skin of leg if desired by patient. Single tubigrip from toes to knee. Change M -W-F. Follow up with wound care as planned . -Wound Care Followup [facility] Total Time Total Time Spent Total Time Spent (In Minutes): I personally spent: 35 minutes today on clinical care activities including: reviewing chart notes and vital signs examining and counseling the patient writing orders writing prescriptions, discharge instructions documentation Coding Level of Care Code 44171 INP/OBS DISCH >30 MIN Diagnoses Hypoxia R09.02 Left arm pain M79.602 Venous ulcer of left leg I83.029; L97.929
--- NOTE | 2024-04-13 07:19 | Clinical Documentation Query ---
A supporting diagnosis is required for the test/procedure performed on this patient in order for us to be reimbursed by the patient's insurance. Please provide a supporting diagnosis for the following test/procedure listed below next to the test name along with your signature. *If there is no additional diagnosis for this patient that would support the following test/procedure please document that below next to the test/procedure. Test(s)/Procedure(s) that require a supporting diagnosis: * 92824 Diphtheria/Tetanus/Pertussis Vaccine DIAGNOSIS: leg wound Provider Signature: Date: Thank you Mojgan Mix [employer] Information Management Once completed, please kindly fax back to [phone] For questions please call [phone] [facility]
--- NOTE | 2024-04-13 07:26 | Clinical Documentation Query ---
A supporting diagnosis is required for the test/procedure performed on this patient in order for us to be reimbursed by the patient's insurance. Please provide a supporting diagnosis for the following test/procedure listed below next to the test name along with your signature. *If there is no additional diagnosis for this patient that would support the following test/procedure please document that below next to the test/procedure. Test(s)/Procedure(s) that require a supporting diagnosis: * 94154 Diphtheria/Tetanus/Pertussis Vaccine DIAGNOSIS: Provider Signature: Date: Thank you Mojgan Mix Health Information Management Once completed, please kindly fax back to [phone] For questions please call [phone] [facility]
--- NOTE | 2024-04-20 08:13 | Coding Query ---
A supporting diagnosis is required for the test/procedure performed on this patient in order for us to be reimbursed by the patient's insurance. Please provide a supporting diagnosis for the following test/procedure listed below next to the test name along with your signature. *If there is no additional diagnosis for this patient that would support the following test/procedure please document that below next to the test/procedure. Test(s)/Procedure(s) that require a supporting diagnosis: * 01243 Tetanus Immunization DIAGNOSIS: cellulitis Provider Signature: Date: Thank you Mojgan Mix [employer] Once completed, please kindly fax back to [phone] For questions please call [phone] [facility]
== END 2024-03-04 17:56 | disposition home health service (06) | DRG 206 ==
LOC: EDSEX → ED 10:25 → 3E 10:25 → SUATTDRO 15:13 → 3E 17:35

== ENCOUNTER 2024-06-10 18:10 | Observation (INO) ==
[2024-06-10] MEDS: ALBUT/IPRATROP 3MG/0.5MG NEB 3 ML VIAL NEB STA ×3 (18:49→20:53)
[2024-06-10 18:57] LABS: Base Excess VBG 6.4 mEq/L; HCO3 VBG 32 mmol/L; Oxygen Saturation VBG < 60.0 %; PCO2 VBG 48 mmHg (38-50); PO2 VBG 37 mmHg; pH VBG 7.43 (7.36-7.41)
[2024-06-10 19:03] LABS: Basophils # (auto) 0.05 K/uL (0.00-0.20); Basophils % (auto) 0.5 %; Eosinophils # (auto) 0.31 K/uL (0.00-0.50); Hematocrit (blood only) 37.7 % (37.0-47.0); Hemoglobin 12.4 g/dl (12.0-16.0); Immature Granulocytes # (auto) 0.04 K/uL (0.01-0.20); Immature Granulocytes % (auto) 0.4 %; Lymphocytes # (auto) 1.73 K/uL (1.20-3.40); Lymphocytes % (auto) 16.8 %; Mean Corpuscular Hgb Conc 32.9 g/dL (32.0-36.0); Mean Corpuscular Volume 88.3 fL (80.0-100.0); Mean Platelet Volume 9.6 fL (9.4-12.4); Monocytes # (auto) 1.01 K/uL (0.11-0.59); Monocytes % (auto) 9.8 %; Neutrophils # (auto) 7.14 K/uL (1.40-6.50); Neutrophils % (auto) 69.5 %; Platelet Count 245 K/uL (130-400); RDW Coefficient of Variation 13.6 % (11.5-14.5); RDW Standard Deviation 43.8 fL (36.4-46.3); Red Blood Count 4.27 M/uL (4.20-5.40); White Blood Count 10.28 K/ul (4.8-10.8)
[2024-06-10 19:20] LABS: BUN Creatinine Ratio 10.6 (10-20); Bilirubin Direct 0.1 mg/dl (0-0.2); Bilirubin,Total 0.7 mg/dl (0.2-1.0); Calcium 9.3 mg/dl (8.6-10.3); Potassium 3.3 mmol/L (3.5-5.1); Total Protein 7.7 gm/dl (6.0-8.3)
[2024-06-10 19:27] LABS: Troponin I High Sensitivity 9.1 pg/ml (0-14)
--- NOTE | 2024-06-10 19:27 | Emergency Department Note ---
History of Present Illness General Chief Complaint: Weakness Stated Complaint: CONGESTION,WHEEZING,WEAK Time Seen by Provider: 06/10/24 18:26 History of Present Illness Provider Complaint: shortness of breath and cough Onset (ago): day(s) (3) Consistency/Duration: + progressively worsening Maximum Pain Intensity: 7 Relieved By: + nothing Exacerbated By: + exertion and + coughing Context: + recent illness Known history of: COPD, congestive heart failure and recurrent pneumonia Associated symptoms: + cough, + wheezing, + sputum production and + chest congestion; no hemoptysis, no nausea/vomiting or no rash Treatment prior to arrival: bronchodilator Related Data Home oxygen amount: as needed at night Home Medications Medication Instructions Recorded Confirmed Type calcium 500 mg (as 1 tab PO QPM 01/14/19 06/10/24 History carbonate)-vitamin D3 5 mcg (200 unit) tablet cyclosporine 0.05 % eye drops in a 1 drops ophthalmic (eye) BID 01/14/19 06/10/24 History dropperette (Restasis) docusate sodium 100 mg capsule 100 mg PO QAM PRN Constipation 01/14/19 06/10/24 History latanoprost 0.005 % eye drops 1 drops ophthalmic (eye) HS 01/14/19 06/10/24 History nebulizer accessories #1 ea 03/26/20 06/10/24 Rx nebulizers #1 ea 09/09/20 06/10/24 Rx compression socks, x-large #2 ea 11/07/20 06/10/24 Rx miscellaneous medical supply #1 ea 11/07/20 06/10/24 Rx Shower Chair #1 ea 01/22/22 06/10/24 Rx nebulizer accessories #1 ea 01/27/22 06/10/24 Rx ascorbic acid (vitamin C) 500 mg 500 mg PO QPM 09/15/22 06/10/24 History tablet (Vitamin C) guaifenesin 600 mg tablet, 600 mg PO BID 09/15/22 06/10/24 History extended release 12 hr (Mucinex) nystatin 100,000 unit/gram topical 1 applic topical TID PRN Skin 03/16/23 06/10/24 Rx cream Irritation #30 grams sodium chloride, sodium See Rx Instructions .Route 07/19/23 06/10/24 Rx bicarb-nasal rinse squeeze bottle .COMPLEX #50 ea with packet (Neilmed Sinus Rinse Complete with packet) furosemide 20 mg tablet 20 mg PO QAM #90 tabs 08/04/23 06/10/24 Rx walker #1 ea 08/30/23 06/10/24 Rx pantoprazole 40 mg tablet,delayed 40 mg PO QAM #90 tabs 09/17/23 06/10/24 Rx release amlodipine 5 mg tablet 5 mg PO QAM #90 tabs 10/11/23 06/10/24 Rx metoprolol succinate 100 mg 100 mg PO QAM #90 ea 12/27/23 06/10/24 Rx capsule sprinkle, ext. release 24 hr chlorpheniramine maleate 4 mg 4 mg PO Q12H 90 days #180 tabs 01/04/24 06/10/24 Rx tablet (Allergy Relief (chlorpheniramine)) atorvastatin 20 mg tablet 20 mg PO QAM 90 days #90 tabs 02/22/24 06/10/24 Rx gabapentin 300 mg capsule 300 mg PO BID #180 caps 02/22/24 06/10/24 Rx levothyroxine 75 mcg tablet 75 mcg PO QAM #90 tabs 02/22/24 06/10/24 Rx montelukast 10 mg tablet 10 mg PO HS #90 tabs 02/22/24 06/10/24 Rx acetaminophen 500 mg tablet 1,000 mg (2 x 500 mg) PO TID #0 03/04/24 06/10/24 Rx (Tylenol Extra Strength) tabs CPAP Supplies #1 ea 03/13/24 06/10/24 Rx alendronate 70 mg tablet (Fosamax) 70 mg PO WK #12 tabs 03/16/24 06/10/24 Rx blood sugar diagnostic (OneTouch #100 ea 03/16/24 06/10/24 Rx Ultra Test strips) blood-glucose meter (OneTouch #1 ea 03/16/24 06/10/24 Rx Ultra2 Meter) lancets 30 gauge (OneTouch Delica #100 ea 03/16/24 06/10/24 Rx Plus Lancet) rivaroxaban 20 mg tablet 20 mg PO QPM #90 tabs 04/14/24 06/10/24 Rx CPAP Supplies #1 ea 04/18/24 06/10/24 Rx Oxygen Home #1 ea 04/18/24 06/10/24 Rx nebulizer accessories #1 ea 04/18/24 06/10/24 Rx gentamicin 0.1 % topical ointment 1 applic topical TID #30 grams 04/21/24 06/10/24 Rx acetic acid 0.25 % irrigation 1 irrig irrigation .QOD 04/26/24 06/10/24 History solution fluticasone propionate 50 1 spray intranasal BID #18.2 mL 05/02/24 06/10/24 Rx mcg/actuation nasal spray,suspension (Flonase Allergy Relief) budesonide 0.5 mg/2 mL suspension 0.5 mg (2 mL) inhalation BID #120 05/04/24 06/10/24 Rx for nebulization mL cimetidine 400 mg tablet 400 mg PO DAILY 90 days #90 tabs 05/10/24 06/10/24 Rx metformin 500 mg tablet 500 mg PO DAILY #30 tabs 05/10/24 06/10/24 Rx arformoterol 15 mcg/2 mL solution 2 ml inhalation BID #120 mL 05/11/24 06/10/24 Rx for nebulization (Brovana) CPAP Machine #1 ea 06/01/24 06/10/24 Rx semaglutide 0.25 mg or 0.5 mg (2 0.5 mg (0.736 mL) subcut .q7days 06/05/24 06/10/24 Rx mg/3 mL) subcutaneous pen injector 28 days #3 mL (Ozempic) Allergies Allergy/AdvReac Type Severity Reaction Status Date / Time pecan nut Allergy Severe TONGUE Verified 06/10/24 17:00 SWELLS house dust Allergy Intermediate SNEEZING, Verified 06/10/24 17:00 CONGESTION Sulfa (Sulfonamide AdvReac Intermediate YEAST Verified 06/10/24 17:00 Antibiotics) INFECTION Past Med/Surg History Problem List (Updated 06/10/24 @ 21:15 by Kevin Cano MD) Callus of toe Staph aureus infection Pseudomonas infection History of total abdominal hysterectomy bso Cervical stenosis of spinal canal Rotator cuff tear arthropathy of left shoulder Morbid obesity with BMI of 50.0-59.9, adult Abnormal ankle brachial index Venous ulcer of left leg (Acute) Type 2 diabetes mellitus with obesity Osteoporosis Prolapse of female pelvic organs Mixed incontinence Cystocele with prolapse Poor balance Hypothyroid (Chronic) Autonomic neuropathy (Chronic 09/03/12) Atrial fibrillation (Acute) Hyperlipemia (Chronic) Asthma SSS (sick sinus syndrome) RBBB (right bundle branch block) Dermatophytosis of the trunk Diabetic neuropathy Restrictive lung disease Right lumbar radiculopathy Venous stasis ulcer of left lower leg with edema of left lower leg (Acute) Chronic venous insufficiency of lower extremity (Chronic) History of right knee joint replacement Obstructive sleep apnea (Acute) Metabolic syndrome Morbid obesity Slow transit constipation Chronic venous insufficiency Vertigo Balance disorder Hammertoe of right foot (Chronic) GERD (gastroesophageal reflux disease) COPD (chronic obstructive pulmonary disease) (Acute) Anticoagulant long-term use (Acute) xarelto daily Left knee DJD Urinary incontinence Nocturnal hypoxemia Hypertension CHF (congestive heart failure) Medical History COPD exacerbation Acute on chronic respiratory failure with hypoxia Rhinovirus infection Elevated brain natriuretic peptide (BNP) level Shortness of breath History of skin ulcer of lower extremity lt leg, currently has healing wounds/ulcers, being treated in [facility] wound care Morbid obesity with BMI of 45.0-49.9, adult History of intestinal obstruction History of gout Hoarseness of voice Hypothyroidism Prediabetes diet controlled-"i'm not very good at following it" History of basal cell carcinoma Glaucoma PVD (peripheral vascular disease) Osteoarthritis HLD (hyperlipidemia) On home oxygen therapy 2 lpm qHS and prn Peripheral neuropathy Sacral fracture As seen on MRI 01/25/2020, occult right hemisacrum fracture Asthma inhaler daily/prn, nebulizer prn Afib on xarelto; follows with Dr. Zimmer Surgical History Cataract extraction status, right eye Hx of cataract extraction LT. Status post sclerotherapy of varicose veins (~11/06/20) @ [facility] History of tooth extraction History of intestinal surgery S/P thyroid biopsy History of basal cell carcinoma (BCC) excision Status post endovenous radiofrequency ablation of saphenous vein History of endovenous ablation of incompetent vein radiofrequency. Type of vein not specified in CCD History of total knee arthroplasty Rt History of hernia repair History of decompression of median nerve at carpal tunnel (neuroplasty) History of laparoscopic cholecystectomy Family History Father Skin cancer Pulmonary embolism Father Gout Other No family history of adverse response to anesthesia Denies family history of Ovarian cancer Prostate cancer Myocardial infarction Breast cancer Lung cancer Colorectal cancer Social History Smoking Status: Never smoker Second Hand Exposure: No; Do You Dip or Chew Tobacco: No; Hx Alcohol Use: No Hx Substance Use: No Preferred Language: Georgian Communication Ability: Effective Visual Impairment: Limited Hearing Ability: Normal [employer] Required: No Beliefs That Will Affect Care: None marital status: Current Living Situation: Alone current occupational status: retired current occupation: retired from career as a [employer] How many Children do You have: 3 How many Children do You have Comment: ONE CHILD LOCAL TO HELP NEEDED and live right behind her. ONE CHILD IN [place]. AND ANOTHER LIVES ABOUT AN HOUR AND 1/2 AWAY FROM . Feels Safe at Home: Yes Safety Concerns Comment: Considered Life Alert but has her phone with her. Childhood Exposure to Second-Hand Smoke: No Diet: low salt caffeine: Yes (1-2 cups in am per day.) during the past year weight has: remained stable Dental Care, Regularly: Yes Physical Activity Frequency: Does not Exercise Seatbelt Use: always Sunscreen Use: Yes Do you think of yourself as: straight/heterosexual Gender Identity: Female Assistive Devices: Cane and Walker Physical Exam 2 Vital Signs: Vital Signs - 24 hr 06/10/24 18:17 06/10/24 18:37 06/10/24 18:39 Temperature 36.5 C Temperature Source Skin Pulse Rate 123 H 116 H Pulse Rate [Apical ] Respiratory Rate 22 Respiratory Effort / Characteristics Non-Labored Sponta neous Respiratory Depth Normal Respiratory Patter n Regular Blood Pressure 161/86 H Blood Pressure [Le ft Arm] Blood Pressure Hannah n 111 Blood Pressure Hannah n [Left Arm] Pulse Oximetry 88 L 88 L Oxygen Delivery Me thod Room Air Room Air Oxygen Flow Rate Sepsis Recent Feve r Within 48 Hours No Sepsis New/Unexpla ined Change in Men abdon Status N/A Sepsis Action Take n by Nursing No Action Required Oxygen Flow Rate - Titration 2 Pulse Oximetry Pos t Tiitration 96 06/10/24 18:39 06/10/24 18:39 06/10/24 20:08 Temperature Temperature Source Pulse Rate Pulse Rate [Apical ] 107 H 92 H Respiratory Rate 39 H 22 Respiratory Effort / Characteristics Non-Labored Sponta neous Respiratory Depth Normal Respiratory Patter n Regular Blood Pressure Blood Pressure [Le ft Arm] 145/84 H 146/79 H Blood Pressure Hannah n Blood Pressure Hannah n [Left Arm] 104 101 Pulse Oximetry 97 96 98 Oxygen Delivery Me thod Nasal Cannula Nasal Cannula Nasal Cannula Oxygen Flow Rate 2 2 2 Sepsis Recent Feve r Within 48 Hours Sepsis New/Unexpla ined Change in Men abdon Status Sepsis Action Take n by Nursing Oxygen Flow Rate - Titration Pulse Oximetry Pos t Tiitration Physical Exam: Physical Exam GENERAL: oriented to person, place, and time. appears well-developed and well- nourished. HENT: Exam performed. - Head: Normocephalic and atraumatic. EYES: Conjunctivae and EOM are normal. Right eye exhibits no discharge. Left eye exhibits no discharge. No scleral icterus. NECK: Normal range of motion. Neck supple. No JVD present. CV: Tachycardic rate, irregular rhythm, normal heart sounds and intact distal pulses. There is no peripheral edema. Palpable radial pulses bue. PULM/CHEST: Tachypneic. Expiratory wheezes bilaterally. Rhonchi bilaterally. ABD: The abdomen is soft and obese. There is no tenderness. NEURO: Motor and sensation grossly intact. SKIN: Skin is warm and dry. He is not diaphoretic. PSYCH: normal mood and affect. Behavior is normal. Judgment and thought content normal. Course Course 182: The patient was evaluated in room B3. A complete history and physical exam was performed Cardiac monitoring: An order was placed for continuous cardiac monitoring. The monitor shows a rate of 100 with atrial fibrilation rhythm interpreted by me 2020: Vital signs stable. Labs unremarkable with the exception of a mild elevation of the patient's proBNP of 169. Chest x-ray negative. On reassessment patient still wheezing. She still states she feels very short of breath. Patient be given a repeat DuoNebs as well as azithromycin. Patient states at this time she does not feel okay being discharged home. Will attempt more DuoNebs. 2112: Vital signs stable supplemental oxygen. Status post repeat DuoNebs azithromycin and Solu-Medrol the patient is still having wheezing. The patient states she still feels very weak and short of breath and states she does not feel comfortable going home.. Will contact [facility] for admission. Administered Medications Discontinued Medications Albuterol (Albut/Ipratrop 3mg/0.5mg Neb 3 Ml Vial) 3 ml NEB NOW STA; Protocol Stop: 06/10/24 18:32 Last Admin: 06/10/24 18:49 Dose: 3 ml Documented By: CAROLINE Albuterol (Albut/Ipratrop 3mg/0.5mg Neb 3 Ml Vial) 3 ml NEB NOW STA; Protocol Stop: 06/10/24 20:18 Last Admin: 06/10/24 20:24 Dose: 3 ml Documented By: CAROLINE Albuterol (Albut/Ipratrop 3mg/0.5mg Neb 3 Ml Vial) 3 ml NEB NOW STA; Protocol Stop: 06/10/24 20:20 Last Admin: 06/10/24 20:53 Dose: 3 ml Documented By: CAROLINE Azithromycin (Azithromycin 250 Mg Tab) 500 mg PO NOW ONE Stop: 06/10/24 20:20 Last Admin: 06/10/24 20:23 Dose: 500 mg Documented By: CAROLINE Methylprednisolone (Methylprednisolone 125 Mg/2 Ml Vial) 125 mg IV NOW STA Stop: 06/10/24 19:23 Last Admin: 06/10/24 20:05 Dose: 125 mg Documented By: CAROLINE Medical Decision Making Laboratory Data Attestation: I reviewed the patient's lab results. 06/10/24 18:45 06/10/24 18:45 Lab Results 06/10/24 06/10/24 Range/Units 18:36 18:45 WBC 10.28 (4.8-10.8) K/ul RBC 4.27 (4.20-5.40) M/uL Hgb 12.4 (12.0-16.0) g/dl Hct 37.7 (37.0-47.0) % MCV 88.3 (80.0-100.0) fL MCH 29.0 (25.0-34.0) pg MCHC 32.9 (32.0-36.0) g/dL RDW Std Deviation 43.8 (36.4-46.3) fL RDW Coeff of Sonal 13.6 (11.5-14.5) % Plt Count 245 (130-400) K/uL MPV 9.6 (9.4-12.4) fL Immature Gran % (Auto) 0.4 % Neut % (Auto) 69.5 % Lymph % (Auto) 16.8 % Jasper % (Auto) 9.8 % Eos % (Auto) 3.0 % Baso % (Auto) 0.5 % Neut # (Auto) 7.14 H (1.40-6.50) K/uL Lymph # (Auto) 1.73 (1.20-3.40) K/uL Jasper # (Auto) 1.01 H (0.11-0.59) K/uL Eos # (Auto) 0.31 (0.00-0.50) K/uL Baso # (Auto) 0.05 (0.00-0.20) K/uL Immature Gran # (Auto) 0.04 (0.01-0.20) K/uL PT 11.9 (9.0-12.0) Seconds INR 1.1 (0.9-1.1) APTT 32 H (21-31) Seconds PTT Ratio 1.2 VBG pH 7.43 H (7.36-7.41) VBG pCO2 48 (38-50) mmHg VBG pO2 37 mmHg VBG HCO3 32 mmol/L VBG O2 Saturation < 60.0 % VBG Base Excess 6.4 mEq/L Sodium 134 L (136-145) mmol/L Potassium 3.3 L (3.5-5.1) mmol/L Chloride 96 L (98-107) mmol/L Carbon Dioxide 30 (21-32) mmol/L Anion Gap 8 (3-11) BUN 10 (6-23) mg/dl Creatinine 0.94 (0.6-1.2) mg/dl Est Cr Clr Drug Dosing 95.0 ml/min eGFR 62.89 BUN/Creatinine Ratio 10.6 (10-20) Glucose 103 H (70-99(Fasting)) mg/dl Lactate 1.0 (0.4-2.0) mmol/L Calcium 9.3 (8.6-10.3) mg/dl Magnesium 2.0 (1.7-2.4) mg/dl Total Bilirubin 0.7 (0.2-1.0) mg/dl Direct Bilirubin 0.1 (0-0.2) mg/dl AST 19 (13-39) U/L ALT 10 (7-52) U/L Alkaline Phosphatase 86 (34-104) U/L Troponin I High Sens 9.1 (0-14) pg/ml B-Natriuretic Peptide 169 H (0-100) pg/ml Total Protein 7.7 (6.0-8.3) gm/dl Albumin 4.0 (3.4-5.0) gm/dl Procalcitonin 0.08 (0-0.5) ng/ml SARS-CoV-2 (PCR) NEGATIVE (Negative) Influenza Type A (PCR) Negative (Neg) Influenza Type B (PCR) Negative (Neg) RSV (RT-PCR) Negative (Neg) Imaging Data Attestation: I personally reviewed and interpreted this imaging study as follows: My Impression: Chest x-ray negative. Airway clear. No pneumothorax. No consolidation. No cardiomegaly or cephalization.. No free air under the diaphragm. No fractures of the skeletal structures. ECG Data Attestation: I personally reviewed and interpreted this ECG as follows: Interpretation: Atrial fibrillation with a rate of 113. QRS [address] elevation or ST depression. Right bundle branch block present. [facility] Narrative 182: The patient was evaluated in room B3. A complete history and physical exam was performed Cardiac monitoring: An order was placed for continuous cardiac monitoring. The monitor shows a rate of 100 with atrial fibrilation rhythm interpreted by me 2020: Vital signs stable. Labs unremarkable with the exception of a mild elevation of the patient's proBNP of 169. Chest x-ray negative. On reassessment patient still wheezing. She still states she feels very short of breath. Patient be given a repeat DuoNebs as well as azithromycin. Patient states at this time she does not feel okay being discharged home. Will attempt more DuoNebs. 2112: Vital signs stable supplemental oxygen. Status post repeat DuoNebs azithromycin and Solu-Medrol the patient is still having wheezing. The patient states she still feels very weak and short of breath and states she does not feel comfortable going home.. Will contact [facility] hospitalist for admission. Impression & Plan COPD (chronic obstructive pulmonary disease) Discharge Plan Visit Data Chief Complaint: Weakness Stated Complaint: CONGESTION,WHEEZING,WEAK ED Provider: Kevin Cano Discharge Problem: COPD (chronic obstructive pulmonary disease) Patient Disposition: Admitted As Inpatient Forms Stand Alone Forms: My [facility] Prescriptions Prescriptions: No Action acetic acid 0.25 % solution 1 irrig irrigation .QOD Rx Instructions: with compression wrap changes (DME) nebulizer accessories Misc See Rx Instructions .ROUTE .MEDSUPPLY Qty: 1 0RF Rx Instructions: NEBULIZER TUBING. (DME) nebulizers Misc See Rx Instructions .ROUTE .MEDSUPPLY Qty: 1 0RF Rx Instructions: Nebulizer and nebulizer set up. DX: J44.9 (DME) compression socks, x-large Misc See Rx Instructions .ROUTE .MEDSUPPLY Qty: 2 0RF Rx Instructions: SIZE X-LARGE WITHOUT TOES R60.9 I87.2 (DME) miscellaneous medical supply Misc See Rx Instructions .ROUTE .MEDSUPPLY Qty: 1 0RF Rx Instructions: OXYGEN TUBING J45.909 J98.4 G47.34 (DME) nebulizer accessories Kit See Rx Instructions .Route Qty: 1 0RF Rx Instructions: As directed nystatin 100,000 unit/gram cream 1 applic TOP TID PRN (Reason: Skin Irritation) Qty: 30 1RF Patient Comments: pt stated she only uses the cream Rx Instructions: alternate application with powder furosemide 20 mg tablet 20 mg PO QAM Qty: 90 3RF Rx Instructions: TAKE 1 TABLET BY MOUTH EVERY MORNING (DME) walker Misc See Rx Instructions .Route Qty: 1 0RF Rx Instructions: As directed pantoprazole 40 mg tablet,delayed release (DR/EC) 40 mg PO QAM Qty: 90 3RF amlodipine 5 mg tablet 5 mg PO QAM Qty: 90 3RF metoprolol succinate 100 mg capsule,sprinkle,ER 24hr 100 mg PO QAM Qty: 90 3RF chlorpheniramine maleate [Allergy Relief(chlorpheniramn)] 4 mg tablet 4 mg PO Q12H 90 Days Qty: 180 0RF levothyroxine 75 mcg tablet 75 mcg PO QAM Qty: 90 3RF montelukast 10 mg tablet 10 mg PO HS Qty: 90 3RF atorvastatin 20 mg tablet 20 mg PO QAM 90 Days Qty: 90 3RF Patient Comments: around noon gabapentin 300 mg capsule 300 mg PO BID Qty: 180 3RF (DME) CPAP Supplies Misc See Rx Instructions .Route Qty: 1 3RF Rx Instructions: Supplies needed for daily use of CPAP as directed 8cmH20 Cflex 1 (Mask, headgear, filters, tubing, swivel) rivaroxaban 20 mg tablet 20 mg PO QPM Qty: 90 3RF gentamicin 0.1 % ointment 1 applic topical TID Qty: 30 1RF fluticasone propionate [Flonase Allergy Relief] 50 mcg/actuation spray,suspension 1 spray intranasal BID Qty: 18.2 2RF Rx Instructions: administer into each nostril budesonide 0.5 mg/2 mL suspension for nebulization 0.5 mg inhalation BID Qty: 120 2RF cimetidine 400 mg tablet 400 mg PO DAILY 90 Days Qty: 90 2RF Rx Instructions: administer with dinner metformin 500 mg tablet 500 mg PO DAILY Qty: 30 2RF arformoterol [Brovana] 15 mcg/2 mL solution for nebulization 2 ml inhalation BID Qty: 120 3RF (DME) CPAP Machine Misc See Rx Instructions .Route Qty: 1 0RF Rx Instructions: CPAP 8 cmH2O with C-Flex of 1, nasal pillow or cushion, heated humidification, compliance download capabilities, DME: [facility] [place] [place] Shower Chair Mis See Rx Instructions .Route Qty: 1 0RF Rx Instructions: Bariatric shower chair calcium carbonate-vitamin D3 500 mg(1,250mg) -200 unit tablet 1 tab PO QPM Patient Comments: evening cyclosporine [Restasis] 0.05 % dropperette 1 drops ophthalmic (eye) BID docusate sodium 100 mg capsule 100 mg PO QAM PRN (Reason: Constipation) latanoprost 0.005 % drops 1 drops OP HS Ozempic 0.25 mg or 0.5 mg (2 mg/3 mL) pen injector 0.5 mg subcut .q7days 28 Days Qty: 3 2RF Neilmed Sinus Rinse Complete Packet With Rinse Device See Rx Instructions .Route .COMPLEX Qty: 50 3RF Rx Instructions: use daily; (DME) blood-glucose meter [OneTouch Ultra2 Meter] Misc See Rx Instructions .Route Qty: 1 0RF Rx Instructions: Check once daily (DME) OneTouch Ultra Test Strip See Rx Instructions .Route Qty: 100 3RF Rx Instructions: Check blood sugar once daily (DME) lancets [OneTouch Delica Plus Lancet] 30 gauge misc See Rx Instructions .Route Qty: 100 3RF Rx Instructions: check blood sugar once daily alendronate [Fosamax] 70 mg tablet 70 mg PO WK Qty: 12 4RF Rx Instructions: Take 1 tab once weekly with 8 oz. plain water; wait 45 minutes before eating/drinking anything else. Mondays (DME) nebulizer accessories Kit See Rx Instructions .Route Qty: 1 11RF Rx Instructions: NEBULIZER TUBING (DME) Oxygen Home Liters Per Minute See Rx Instructions .Route Qty: 1 11RF Rx Instructions: OXYGEN TUBING AND NASAL CANNULAS (DME) CPAP Supplies Misc See Rx Instructions .Route Qty: 1 0RF Rx Instructions: Cpap Accessories: Patient needs fitted for nasal pillows for CPAP machine LISETTE 99 ascorbic acid (vitamin C) [Vitamin C] 500 mg Tablet 500 mg PO QPM Patient Comments: noon guaifenesin [Mucinex] 600 mg tablet extended release 12hr 600 mg PO BID Rx Instructions: OTC acetaminophen [Tylenol Extra Strength] 500 mg Tablet 1,000 mg PO TID Qty: 0 0RF Referrals Referrals: Cyndy Stringer MD [Primary Care Provider] - Discharge Problem: COPD (chronic obstructive pulmonary disease) Qualifiers: COPD type: COPD with acute exacerbation Qualified Code(s): J44.1 - Chronic obstructive pulmonary disease with (acute) exacerbation
[2024-06-10 19:31] LABS: INR 1.1 (0.9-1.1); Partial Thromboplastin Ratio 1.2; Partial Thromboplastin Time 32 Seconds (21-31); Prothrombin Time 11.9 Seconds (9.0-12.0)
[2024-06-10 19:34] LABS: Influenza A virus by PCR Negative (Neg); Influenza B virus by PCR Negative (Neg); RSV by PCR Negative (Neg); SARS CoV2 RNA(COVID-19) Ceph NEGATIVE (Negative)
[2024-06-10] MEDS: methylPREDNISolone 125 MG/2 ML VIAL IV STA (20:05)
--- NOTE | 2024-06-10 20:14 | XRay Report ---
Exam(s): XR CXR 1 VIEW EXAM: XR Chest, 1 View CLINICAL HISTORY: Reason for exam: Sepsis. TECHNIQUE: Frontal view of the chest. COMPARISON: 07/17/19 FINDINGS: Lungs: Unremarkable. No consolidation. Pleural space: Unremarkable. No pleural effusion or pneumothorax. Heart: Stable mild cardiomegaly. Bones/joints: No acute fracture. No dislocation. IMPRESSION: No acute findings in the chest. Electronically signed by: Jovana Donovan M.D. 06/10/24 20:13 PM
[2024-06-10] MEDS: AZITHROMYCIN 250 MG TAB PO ONE (20:23)
--- NOTE | 2024-06-10 21:32 | History & Physical Report ---
Date of Service June 10, 2024 Assessment & Plan (1) COPD exacerbation: (2) Acute on chronic respiratory failure with hypoxia: (3) Atrial fibrillation: (4) Hypokalemia: (5) Venous ulcer of left leg: (6) Type 2 diabetes mellitus with obesity: (7) Obstructive sleep apnea: Plan Patient is a 78-year-old female with a past medical history of COPD on 2L O2 hs, chronic venous ulcers of the left lower extremity, type II DM, LISSETH, A-fib on Xarelto, GERD, hypothyroidism. She was seen in the ER for cough and wheezing that was unrelieved with 3 DuoNeb treatments, 125 Mg IV Solu-Medrol, and Zithromax. She is being admitted for COPD exacerbation. #COPD exacerbation/hypoxia/ obesity hypoventilation syndrome patient presents with cough, sputum production, and wheezing x 3 days baseline - 2L O2 at bedtime and as needed CXR negative Hypoxic in ED 88% RA -> baseline 2L NC Continue home inhalers Continue with azithromycin Solu-Medrol 40 twice daily (given 125mg IV in ED), attempt to titrate down when clinically indicated duo-nebs, flutter valve QID, incentive spirometry, Mucinex, Tessalon perle sputum cultures ordered Promote oral hydration wean oxygen as tolerated #Afib In A-fib on admission EKG tachycardic on admission, HR 125 -> ordered 5mg IV Lopressor on admission continue Xarelto and metoprolol #hypokalemia suspect secondary to decreased p.o. intake, on lasix 20 mg daily 3.3 on admission 70 mEq p.o. ordered Mg stable, 2.0 trend Mg and BMP #venous stasis ulcers Left LE chronic, hx of ablation with Dr. Riggins, follows with wound care and has home health Completed course of amoxicillin / wound care MWF - dressed with Aquacel Ag and Coban light wraps elevated left LE #DM Controlled on metformin and Ozempic at home; hold Most recent A1C 6.2 SSI with target BSG range 110-140mg/dL, CF 20, carb ratio 7 has protein drink daily to promote healing; boost ordered T2DM diet #LISSETH was to have home CPAP set up this week Uses 2L O2 via nasal cannula at bedtime Will trial CPAP while here Chronic stable diagnoses: Hypothyroidism - continue levothyroxine GERD - continue pantoprazole VTE ppx: Xarelto Diet: T2DM Dispo: med/tele Admission and Anticipated Discharge Date Admission Date: 06/10/24 History of Present Illness Chief Complaint: weakness Primary Care Provider: Cyndy Stringer MD Patient is a 78-year-old female with a past medical history of COPD on 2L O2 hs, chronic venous ulcers of the left lower extremity, type II DM, LISSETH, A-fib on Xarelto, GERD, hypothyroidism. She was seen in the ER for cough and wheezing that was unrelieved with 3 DuoNeb treatments, 125 Mg IV Solu-Medrol, and Zithromax. She is being admitted for COPD exacerbation. She stated that she began with symptoms of sore throat, cough with yellow/green sputum production, wheezing, weakness, headaches, eye pain, chills, dyspnea on exertion. She did take her temperature and it was afebrile; 98.8 F. She also has had a decreased p.o. intake for the past few days. She uses her oxygen and a chest but has not required more during the day at home. She uses DuoNebs twice daily. Patient denies chest pain, abdominal pain, nausea, vomiting, diarrhea, constipation, edema. She follows with wound care for her chronic venous ulcers. She has home health Wednesday and Wednesday and goes to the wound care clinic on Wednesdays. She completed a course of amoxicillin 06/08. She elevates her leg and drinks protein shakes to promote healing. She took her home medications to this morning, she is due for her evening doses; compliant on Xarelto. She wishes to be full code. Allergies Allergy/AdvReac Type Severity Reaction Status Date / Time pecan nut Allergy Severe TONGUE Verified 06/10/24 17:00 SWELLS house dust Allergy Intermediate SNEEZING, Verified 06/10/24 17:00 CONGESTION Sulfa (Sulfonamide AdvReac Intermediate YEAST Verified 06/10/24 17:00 Antibiotics) INFECTION Home Medications Medication Instructions Recorded Confirmed Type calcium 500 mg (as 1 tab PO QPM 01/14/19 06/10/24 History carbonate)-vitamin D3 5 mcg (200 unit) tablet cyclosporine 0.05 % eye drops in a 1 drops OPB BID 01/14/19 06/10/24 History dropperette (Restasis) latanoprost 0.005 % eye drops 1 drops OPB HS 01/14/19 06/10/24 History nebulizer accessories #1 ea 03/26/20 06/10/24 Rx nebulizers #1 ea 09/09/20 06/10/24 Rx compression socks, x-large #2 ea 11/07/20 06/10/24 Rx miscellaneous medical supply #1 ea 11/07/20 06/10/24 Rx Shower Chair #1 ea 01/22/22 06/10/24 Rx nebulizer accessories #1 ea 01/27/22 06/10/24 Rx ascorbic acid (vitamin C) 500 mg 500 mg PO QDL 09/15/22 06/10/24 History tablet (Vitamin C) guaifenesin 600 mg tablet, 600 mg PO BID 09/15/22 06/10/24 History extended release 12 hr (Mucinex) nystatin 100,000 unit/gram topical 1 applic topical TID PRN Skin 03/16/23 06/10/24 Rx cream Irritation #30 grams furosemide 20 mg tablet 20 mg PO QAM #90 tabs 08/04/23 06/10/24 Rx walker #1 ea 08/30/23 06/10/24 Rx pantoprazole 40 mg tablet,delayed 40 mg PO QAM #90 tabs 09/17/23 06/10/24 Rx release amlodipine 5 mg tablet 5 mg PO QAM #90 tabs 10/11/23 06/10/24 Rx metoprolol succinate 100 mg 100 mg PO QAM #90 ea 12/27/23 06/10/24 Rx capsule sprinkle, ext. release 24 hr gabapentin 300 mg capsule 300 mg PO BID #180 caps 02/22/24 06/10/24 Rx levothyroxine 75 mcg tablet 75 mcg PO QAM #90 tabs 02/22/24 06/10/24 Rx montelukast 10 mg tablet 10 mg PO HS #90 tabs 02/22/24 06/10/24 Rx CPAP Supplies #1 ea 03/13/24 06/10/24 Rx alendronate 70 mg tablet (Fosamax) 70 mg PO WK #12 tabs 03/16/24 06/10/24 Rx blood sugar diagnostic (OneTouch #100 ea 03/16/24 06/10/24 Rx Ultra Test strips) blood-glucose meter (OneTouch #1 ea 03/16/24 06/10/24 Rx Ultra2 Meter) lancets 30 gauge (OneTouch Delica #100 ea 03/16/24 06/10/24 Rx Plus Lancet) CPAP Supplies #1 04/18/24 06/10/24 Rx Oxygen Home #1 ea 04/18/24 06/10/24 Rx nebulizer accessories #1 ea 04/18/24 06/10/24 Rx acetic acid 0.25 % irrigation 1 irrig irrigation .QOD 04/26/24 06/10/24 History solution CPAP Machine #1 ea 06/01/24 06/10/24 Rx semaglutide 0.25 mg or 0.5 mg (2 0.5 mg (0.736 mL) subcut .q7days 06/05/24 06/10/24 Rx mg/3 mL) subcutaneous pen injector 28 days #3 mL (Ozempic) acetaminophen 500 mg tablet 1,000 mg PO TID PRN Fever Or Pain 06/10/24 06/10/24 History (Tylenol Extra Strength) arformoterol 15 mcg/2 mL solution 2 ml inhalation [facility] 06/10/24 06/10/24 History for nebulization (Brovana) atorvastatin 20 mg tablet 20 mg PO QAM 06/10/24 06/10/24 History budesonide 0.5 mg/2 mL suspension 0.5 mg inhalation [facility] 06/10/24 06/10/24 History for nebulization chlorpheniramine maleate 4 mg 4 mg PO QAM 06/10/24 06/10/24 History tablet cimetidine 400 mg tablet 400 mg PO QDD 06/10/24 06/10/24 History docusate sodium 100 mg capsule 100 mg PO QAM 06/10/24 06/10/24 History metformin 500 mg tablet 500 mg PO QAM 06/10/24 06/10/24 History rivaroxaban 20 mg tablet 20 mg PO PM 06/10/24 06/10/24 History Past Med/Surg History Problem List (Updated 06/10/24 @ 22:24 by Marilin Merlos PA-C) Hypokalemia Acute on chronic respiratory failure with hypoxia COPD exacerbation Callus of toe Staph aureus infection Pseudomonas infection History of total abdominal hysterectomy bso Cervical stenosis of spinal canal Rotator cuff tear arthropathy of left shoulder Morbid obesity with BMI of 50.0-59.9, adult Abnormal ankle brachial index Venous ulcer of left leg (Acute) Type 2 diabetes mellitus with obesity Osteoporosis Prolapse of female pelvic organs Mixed incontinence Cystocele with prolapse Poor balance Hypothyroid (Chronic) Autonomic neuropathy (Chronic 09/03/12) Atrial fibrillation (Acute) Hyperlipemia (Chronic) Asthma SSS (sick sinus syndrome) RBBB (right bundle branch block) Dermatophytosis of the trunk Diabetic neuropathy Restrictive lung disease Right lumbar radiculopathy Venous stasis ulcer of left lower leg with edema of left lower leg (Acute) Chronic venous insufficiency of lower extremity (Chronic) History of right knee joint replacement Obstructive sleep apnea (Acute) Metabolic syndrome Morbid obesity Slow transit constipation Chronic venous insufficiency Vertigo Balance disorder Hammertoe of right foot (Chronic) GERD (gastroesophageal reflux disease) COPD (chronic obstructive pulmonary disease) (Acute) Anticoagulant long-term use (Acute) xarelto daily Left knee DJD Urinary incontinence Nocturnal hypoxemia Hypertension CHF (congestive heart failure) Medical History COPD exacerbation Acute on chronic respiratory failure with hypoxia Rhinovirus infection Elevated brain natriuretic peptide (BNP) level Shortness of breath History of skin ulcer of lower extremity lt leg, currently has healing wounds/ulcers, being treated in [facility] wound care Morbid obesity with BMI of 45.0-49.9, adult History of intestinal obstruction History of gout Hoarseness of voice Hypothyroidism Prediabetes diet controlled-"i'm not very good at following it" History of basal cell carcinoma Glaucoma PVD (peripheral vascular disease) Osteoarthritis HLD (hyperlipidemia) On home oxygen therapy 2 lpm qHS and prn Peripheral neuropathy Sacral fracture As seen on MRI 01/25/2020, occult right hemisacrum fracture Asthma inhaler daily/prn, nebulizer prn Afib on xarelto; follows with Dr. Zimmer Surgical History Cataract extraction status, right eye Hx of cataract extraction LT. Status post sclerotherapy of varicose veins (~11/06/20) @ [facility] History of tooth extraction History of intestinal surgery S/P thyroid biopsy History of basal cell carcinoma (BCC) excision Status post endovenous radiofrequency ablation of saphenous vein History of endovenous ablation of incompetent vein radiofrequency. Type of vein not specified in CCD History of total knee arthroplasty Rt History of hernia repair History of decompression of median nerve at carpal tunnel (neuroplasty) History of laparoscopic cholecystectomy Family History Father Skin cancer Pulmonary embolism Father Gout Other No family history of adverse response to anesthesia Denies family history of Ovarian cancer Prostate cancer Myocardial infarction Breast cancer Lung cancer Colorectal cancer Social History Smoking Status: Never smoker Second Hand Exposure: No; Do You Dip or Chew Tobacco: No; Hx Alcohol Use: No Hx Substance Use: No Preferred Language: Georgian Communication Ability: Effective Visual Impairment: Limited Hearing Ability: Normal [place] Debeader Required: No Beliefs That Will Affect Care: None marital status: Current Living Situation: Alone current occupational status: retired current occupation: retired from career as a [employer] How many Children do You have: 3 How many Children do You have Comment: ONE CHILD LOCAL TO HELP NEEDED and live right behind her. ONE CHILD IN [place]. AND ANOTHER LIVES ABOUT AN HOUR AND 1/2 AWAY FROM . Feels Safe at Home: Yes Safety Concerns Comment: Considered Life Alert but has her phone with her. Childhood Exposure to Second-Hand Smoke: No Diet: low salt caffeine: Yes (1-2 cups in am per day.) during the past year weight has: remained stable Dental Care, Regularly: Yes Physical Activity Frequency: Does not Exercise Seatbelt Use: always Sunscreen Use: Yes Do you think of yourself as: straight/heterosexual Gender Identity: Female Assistive Devices: Cane and Walker Review of Systems Review of Systems: see HPI Physical Exam Physical Exam: The patient is awake, alert and oriented 3, well developed and well nourished, normocephalic and atraumatic, in no acute distress. Non-toxic appearing. HEENT- EOMI, mucous membranes moist. Hearing grossly intact. Heart-normal S1 and S2. No murmurs, rubs or gallops. Lungs-wheezing bilaterally, no respiratory distress, no accessory muscle use. Abdomen-normal bowel sounds and soft. No ascites noted. Non-tender. Extremities- no clubbing, cyanosis, or edema. Left LE wrapped with wound care bandages. Rheumatologic-normal range of motion. Psychiatric-normal affect. Results & Data Results & Data Vital Signs (Past 12 Hours) Vital Signs Temp Pulse Pulse Resp BP BP Pulse Ox 06/10/24 21:15 113 H 27 H 135/90 91 06/10/24 20:08 92 H 22 146/79 H 98 06/10/24 18:39 96 06/10/24 18:39 107 H 39 H 145/84 H 97 06/10/24 18:39 88 L 06/10/24 18:37 116 H 06/10/24 18:17 36.5 C 123 H 22 161/86 H 88 L O2 Del Method O2 Flow Rate 06/10/24 21:15 Room Air 06/10/24 20:08 Nasal Cannula 2 06/10/24 18:39 Nasal Cannula 2 06/10/24 18:39 Nasal Cannula 2 06/10/24 18:39 Room Air 06/10/24 18:37 06/10/24 18:17 Room Air Laboratory Results Reviewed CBC, PT/INR, CMP, VBG, covid/flu/rsv, lactate, BNP, procal Diagnostic Findings reviewed CXR Medications Administered ED: Duoneb x3, 125 IV Solu-medrol, 500mg PO Zithromax ECG Additional Comments: a fib with RVR, rate 113 Code Status & VTE Plan Code Status full VTE Prophylaxis Plan VTE Prophylaxis will be ordered: Yes Supervising Physician Co-Signing Physician Notes Patient seen and examined, chart reviewed, case discussed with ULISES Merlos and I agree with the assessment and plan as above. In brief, patient is a 78yo female with history of chronic hypoxic respiratory failure secondary to COPD - on 2L O2, restrictive lung disease and sleep disordered breathing presenting with cough, wheeze and SOB. Patient reports having intermittent chills over the last two days as well as cough with increased sputum production - yellow in color. She has been taking her Budesonide and Aformoterol at home BID with brief impr ovement. Was given 3 DuoNebs in the ER as well as Solumedrol and Azithromycin - does feel slightly improved but still reports significant SOB. On exam patient is resting comfortably, NAD, does appear to be mildly tachypneic but is speaking in complete sentences Skin - dressing on LLE wound HEENT- MMM, No JVD Heart - +S1/S2, irregularly irregular, no m/r/g Lungs - patient with diminished breath sounds bilaterally, diffuse end- expiratory wheezing with some coarse rhonchi in mid-lung brown cleared slightly with coughing Abd - +BS, soft, NT/ND Ext - Dressing on LLE Labs and images reviewed No leukocytosis. SARS/FLU/RSV Negative BNP is mildly elevated at 169, less than prior Assessment/Plan Acute on chronic respiratory failure with hypoxia - likely secondary to COPD exacerbation -Admit to medical -Supplemental O2 as needed -Solumedrol 40mg IV BID -Azithromycin -Scheduled DuoNebs and PRN -Mucinex, Tessalon -Trial CPAP with nasal pillows - patient has not yet started her device at home -K repleted -Remainder as above PG Care Time/CCT Total # of Minutes Spent Total Time Spent with Patient: Total time spent is greater than 50% in coordination of care (as documented) at patient's floor/unit and/or counseling patient: Coding Level of Care Code 06305 INT INP/OBS CARE 3/75MIN Diagnoses COPD exacerbation J44.1 Acute on chronic respiratory failure with hypoxia J96.21 Paroxysmal atrial fibrillation I48.0 Atrial fibrillation type: paroxysmal Hypokalemia E87.6 Venous ulcer of left leg I83.029; L97.929 Type 2 diabetes mellitus with obesity E11.69; E66.9 Obstructive sleep apnea G47.33 (3) Atrial fibrillation Atrial fibrillation type: paroxysmal Qualified Code(s): I48.0 - Paroxysmal atrial fibrillation
[2024-06-10 22:01] LABS: Appearance Urine Clear (Clear); Bilirubin Urine Negative (Negative); Blood Urine Negative (Negative); Color Urine Yellow; Glucose Urine UA Negative (Negative); Ketones Urine Negative (Negative); Leukocyte Esterase Urine Negative (Negative); Nitrite Urine Negative (Negative); Protein Urine Negative (Negative); Specific Gravity Urine 1.006 (1.000-1.030); Urobilinogen Urine Negative (Negative)
[2024-06-10] MEDS: POTASSIUM CHLORIDE CRTAB 20 MEQ TABCR PO STA (22:26)
[2024-06-10] MEDS: METOPROLOL TARTRATE 1 MG/ML VIAL IV STA (22:38)
[2024-06-11] MEDS ORDERED: CARBOHYDRATES FOR HYPOGLYCEMIA PO PRN (00:32)
[2024-06-11] MEDS ORDERED: GLUCOSE 40% GEL 15 GM TUBE PO PRN (00:32)
[2024-06-11] MEDS ORDERED: DEXTROSE 50% 50 ML SYRINGE IV PRN (00:32)
[2024-06-11] MEDS ORDERED: GLUCOSE 10 TAB/TUBE PO PRN (00:32)
[2024-06-11] MEDS ORDERED: GLUCAGON FOR INJ 1 MG VIAL SQ PRN (00:32)
[2024-06-11] MEDS: FORMOTEROL 20 MCG/2 ML VIAL INH SCH (01:09)
[2024-06-11] MEDS: BUDESONIDE 0.5 MG/2 ML VIAL (PULMICORT) INH SCH (01:09)
[2024-06-11] MEDS: ALBUT/IPRATROP 3MG/0.5MG NEB 3 ML VIAL NEB SCH (01:10)
[2024-06-11] MEDS ORDERED: ARTIFICIAL TEARS OP PRN (01:11)
[2024-06-11] MEDS: BENZONATATE 100 MG CAPSULE PO SCH (01:26)
[2024-06-11] MEDS: guaiFENesin 600 MG TABCR PO SCH (01:26)
[2024-06-11] MEDS: GABAPENTIN 300 MG CAP PO SCH (01:26)
[2024-06-11] MEDS: RIVAROXABAN 20 MG TAB PO SCH (01:27)
[2024-06-11] MEDS: LATANOPROST 0.005% OP SOLN 2.5 ML BTL OPB SCH (01:27)
[2024-06-11] MEDS: POTASSIUM CHLORIDE 10 MEQ TABCR PO ONE (01:29)
[2024-06-11 05:49] LABS: Hematocrit (blood only) 35.4 % (37.0-47.0); Hemoglobin 11.7 g/dl (12.0-16.0); Mean Corpuscular Hemoglobin 29.1 pg (25.0-34.0); Mean Corpuscular Hgb Conc 33.1 g/dL (32.0-36.0); Mean Corpuscular Volume 88.1 fL (80.0-100.0); Mean Platelet Volume 9.6 fL (9.4-12.4); Platelet Count 226 K/uL (130-400); RDW Coefficient of Variation 13.4 % (11.5-14.5); RDW Standard Deviation 43.3 fL (36.4-46.3); Red Blood Count 4.02 M/uL (4.20-5.40); White Blood Count 6.67 K/ul (4.8-10.8)
[2024-06-11 06:08] LABS: BUN Creatinine Ratio 16.4 (10-20); Calcium 8.9 mg/dl (8.6-10.3); Potassium 4.1 mmol/L (3.5-5.1)
[2024-06-11 06:17] LABS: Basophils # (auto) 0.01 K/uL (0.00-0.20); Basophils % (auto) 0.1 %; Immature Granulocytes # (auto) 0.02 K/uL (0.01-0.20); Immature Granulocytes % (auto) 0.3 %; Lymphocytes # (auto) 0.48 K/uL (1.20-3.40); Lymphocytes % (auto) 7.2 %; Monocytes # (auto) 0.04 K/uL (0.11-0.59); Monocytes % (auto) 0.6 %; Neutrophils # (auto) 6.12 K/uL (1.40-6.50); Neutrophils % (auto) 91.8 %
[2024-06-11] MEDS: LEVOTHYROXINE SODIUM 75 MCG TABLET PO SCH (06:26)
[2024-06-11] MEDS: amLODIPine BESYLATE 5 MG TAB PO SCH (08:46)
[2024-06-11] MEDS: ATORVASTATIN 20 MG TAB PO SCH (08:47)
[2024-06-11] MEDS: AZITHROMYCIN 250 MG TAB PO SCH (08:47)
[2024-06-11] MEDS: FUROSEMIDE 20 MG TAB PO SCH (08:48)
[2024-06-11] MEDS: FLUTICASONE PROPIONATE NA SPR 16 GM BTL SCH (08:48)
[2024-06-11] MEDS: methylPREDNISolone 40 MG in SYRINGE 0 ML IV SCH (08:49)
[2024-06-11] MEDS: PANTOprazole 40 MG TAB PO SCH (08:50)
[2024-06-11] MEDS: METOPROLOL SUCC 50MG EXT REL TAB PO SCH (08:50)
[2024-06-11] MEDS ORDERED: methylPREDNISolone 125 MG/2 ML VIAL IV SCH (09:00)
[2024-06-11] MEDS: INSULIN ASPART PER UNIT CHARGE SC SCH (10:53)
--- NOTE | 2024-06-11 10:59 | Hospitalist Progress Note ---
Date of Service June 11, 2024 Assessment & Plan (1) COPD exacerbation: (2) Acute on chronic respiratory failure with hypoxia: (3) Atrial fibrillation: (4) Hypokalemia: (5) Venous ulcer of left leg: (6) Type 2 diabetes mellitus with obesity: (7) Obstructive sleep apnea: Plan Patient is a 78-year-old female with a past medical history of COPD on 2L O2 hs, chronic venous ulcers of the left lower extremity, type II DM, LISSETH, A-fib on Xarelto, GERD, hypothyroidism. She was seen in the ER for cough and wheezing that was unrelieved with 3 DuoNeb treatments, 125 Mg IV Solu-Medrol, and Zithromax. She is being admitted for COPD exacerbation. COPD Excaerbation patient presents with cough, sputum production, and wheezing x 3 days baseline - 2L O2 at bedtime and as needed, also uses home nebs Found to be in exacerbation, with expiratory wheeze on exam CXR negative Hypoxic in ED 88% RA -> baseline 2L NC Continue home inhalers Continue with azithromycin Solu-Medrol 40 twice daily duo-nebs, flutter valve QID, incentive spirometry, Mucinex, Tessalon perle sputum cultures ordered wean oxygen as tolerated Afib Has a hx of afib, on Xarelto at home In A-fib on admission EKG tachycardic on admission, HR 125 -> ordered 5mg IV Lopressor on admission continue Xarelto and metoprolol hypokalemia suspect secondary to decreased p.o. intake, on lasix 20 mg daily 3.3 on admission 70 mEq p.o. ordered Mg stable, 2.0 trend Mg and BMP venous stasis ulcers Left LE chronic, hx of ablation with Dr. Riggins, follows with wound care and has home health Completed course of amoxicillin /10 wound care MWF - dressed with Aquacel Ag and Coban light wraps elevated left LE DM Controlled on metformin and Ozempic at home; hold Most recent A1C 6.2 SSI with target BSG range 110-140mg/dL, CF 20, carb ratio 7 T2DM diet #LISSETH was to have home CPAP set up this week Uses 2L O2 via nasal cannula at bedtime Will trial CPAP while here Chronic stable diagnoses: Hypothyroidism - continue levothyroxine GERD - continue pantoprazole VTE ppx: Xarelto Diet: T2DM Dispo: med/tele Admission and Anticipated Discharge Date Admission Date: June 10, 2024 Subjective patient seen and examined, feels better, but still some wheeze Review of Systems Review of Systems: All systems reviewed are negative, apart from the ones contained in the history. Physical Exam Physical Exam: The patient is awake, alert and oriented 3, well developed and well nourished, normocephalic and atraumatic, lying in bed and in no acute distress. HEENT--PERRL, EOMI, mucous membranes and oropharynx mildly dry Neck--supple. No JVD. No bruits. Thyroid normal, trachea midline, no adenopathy. Heart--normal S1 and S2. No murmurs, rubs or gallops. Lungs--expiratory wheeze Abdomen--normal bowel sounds and soft. Extremities--no cyanosis or clubbing. No edema. Dermatologic--normal skin turgor, normal color, no abnormal lymph nodes, no rash. Neurologic--cranial nerves II through XII grossly intact. Rheumatologic--normal range of motion. Psychiatric--normal affect. Results & Data Results & Data Vital Signs (Past 12 Hours) Vital Signs Temp Pulse Pulse Resp BP BP Pulse Ox 06/11/24 10:09 97.7 F 101 H 20 165/90 H 92 06/11/24 08:03 102 H 18 154/103 H 93 06/11/24 07:26 100 H 06/11/24 07:00 112 H 22 152/108 H 92 06/11/24 06:58 119 H 22 91 06/11/24 06:18 06/11/24 06:15 86 20 115/75 94 06/11/24 06:00 91 H 20 115/75 95 06/11/24 05:01 102 H 20 119/77 95 06/11/24 04:57 100 H 20 135/86 94 06/11/24 03:00 95 H 20 126/85 96 06/11/24 02:00 99 H 20 117/79 96 06/11/24 01:42 06/11/24 01:42 06/11/24 01:41 99 H 18 104/78 97 06/11/24 01:10 104 H 18 97 06/11/24 00:01 93 H 18 143/87 H 95 06/10/24 23:08 94 H 174/99 H Pulse Ox O2 Del Method O2 Flow Rate 06/11/24 10:09 Room Air 06/11/24 08:03 06/11/24 07:26 06/11/24 07:00 Nebulizer 06/11/24 06:58 Room Air 06/11/24 06:18 94 06/11/24 06:15 Room Air 06/11/24 06:00 06/11/24 05:01 06/11/24 04:57 06/11/24 03:00 Nasal Cannula 2 06/11/24 02:00 Nasal Cannula 2 06/11/24 01:42 Nasal Cannula 2 06/11/24 01:42 Nasal Cannula 2 06/11/24 01:41 Nasal Cannula 2 06/11/24 01:10 Nasal Cannula 2 06/11/24 00:01 Nasal Cannula 2 06/10/24 23:08 PG Care Time/CCT Total # of Minutes Spent Total Time Spent with Patient: Total time spent is greater than 50% in coordination of care (as documented) at patient's floor/unit and/or counseling patient: Coding Level of Care Code 82380 SUB INP/OBS CARE 2/35MIN Diagnoses COPD exacerbation J44.1 Acute on chronic respiratory failure with hypoxia J96.21 Paroxysmal atrial fibrillation I48.0 Atrial fibrillation type: paroxysmal Hypokalemia E87.6 Venous ulcer of left leg I83.029; L97.929 Type 2 diabetes mellitus with obesity E11.69; E66.9 Obstructive sleep apnea G47.33 Time Spent (min) 35 (3) Atrial fibrillation Atrial fibrillation type: paroxysmal Qualified Code(s): I48.0 - Paroxysmal atrial fibrillation
[2024-06-11] MEDS: ACETAMINOPHEN 325 MG TAB PO PRN (14:10)
[2024-06-11] MEDS: FAMOTIDINE 20 MG TAB PO SCH (17:46)
[2024-06-11] MEDS ORDERED: BENZOCAINE/MENTHOL 18 LOZ/1 BOX MT PRN (19:56)
[2024-06-11] MEDS ORDERED: MELATONIN 3 MG TAB PO PRN (19:59)
[2024-06-11] MEDS: MELATONIN 3 MG TAB PO PRN (20:50)
[2024-06-11] MEDS: MONTELUKAST SODIUM 10 MG TABLET PO SCH (20:53)
--- NOTE | 2024-06-11 21:43 | Electrocardiogram Report ---
Test Reason : Blood Pressure : */* mmHG Vent. Rate : 113 BPM Atrial Rate : * BPM P-R Int : * ms QRS Dur : 150 ms QT Int : 324 ms P-R-T Axes : * 38 -19 degrees QTcB Int : 444 ms Atrial fibrillation with rapid ventricular response Right bundle branch block Abnormal ECG When compared with ECG of 01-Mar-2024 10:38, No significant change was found Confirmed by Hakan Kyle ([id number]) on 06/11/2024 9:43:14 PM Referred By: REFERRED SELF Confirmed By: Hakan Kyle
[2024-06-12 08:29] LABS: Hematocrit (blood only) 37.2 % (37.0-47.0); Hemoglobin 12.2 g/dl (12.0-16.0); Mean Corpuscular Hemoglobin 28.9 pg (25.0-34.0); Mean Corpuscular Hgb Conc 32.8 g/dL (32.0-36.0); Mean Corpuscular Volume 88.2 fL (80.0-100.0); Mean Platelet Volume 9.5 fL (9.4-12.4); Platelet Count 248 K/uL (130-400); RDW Coefficient of Variation 13.5 % (11.5-14.5); RDW Standard Deviation 43.7 fL (36.4-46.3); Red Blood Count 4.22 M/uL (4.20-5.40); White Blood Count 13.47 K/ul (4.8-10.8)
[2024-06-12 08:49] LABS: BUN Creatinine Ratio 23.3 (10-20); Calcium 8.9 mg/dl (8.6-10.3); Creatinine Clr Calc Pharmacy 80.7 ml/min; Potassium 4.5 mmol/L (3.5-5.1)
--- NOTE | 2024-06-12 10:37 | Hospitalist Progress Note ---
Date of Service June 12, 2024 Assessment & Plan (1) COPD exacerbation: (2) Acute on chronic respiratory failure with hypoxia: (3) Atrial fibrillation: (4) Hypokalemia: (5) Venous ulcer of left leg: (6) Type 2 diabetes mellitus with obesity: (7) Obstructive sleep apnea: Plan Patient is a 78-year-old female with a past medical history of COPD on 2L O2 hs, chronic venous ulcers of the left lower extremity, type II DM, LISSETH, A-fib on Xarelto, GERD, hypothyroidism. She was seen in the ER for cough and wheezing that was unrelieved with 3 DuoNeb treatments, 125 Mg IV Solu-Medrol, and Zithromax. She is being admitted for COPD exacerbation. COPD Excaerbation patient presents with cough, sputum production, and wheezing x 3 days baseline - 2L O2 at bedtime and as needed, also uses home nebs Found to be in exacerbation, with expiratory wheeze on exam CXR negative Hypoxic in ED 88% RA -> baseline 2L NC clinically much improved, wheeze is better Continue Albuterol and Budesonide Continue with azithromycin change Solu-Medrol 40 twice daily to PO Prednisone 40mg BID flutter valve QID, incentive spirometry, Mucinex, Tessalon perle wean oxygen as tolerated Afib Has a hx of afib, on Xarelto at home In A-fib on admission EKG tachycardic on admission, HR 125 -> ordered 5mg IV Lopressor on admission continue Xarelto and metoprolol HR is now under better control hypokalemia suspect secondary to decreased p.o. intake, on lasix 20 mg daily Replace as needed venous stasis ulcers Left LE chronic, hx of ablation with Dr. Riggins, follows with wound care and has home health Completed course of amoxicillin / wound care MWF - dressed with Aquacel Ag and Coban light wraps elevated left LE DM Controlled on metformin and Ozempic at home; hold Most recent A1C 6.2 SSI with target BSG range 110-140mg/dL, CF 20, carb ratio 7 T2DM diet #LISSETH was to have home CPAP set up this week Uses 2L O2 via nasal cannula at bedtime Will trial CPAP while here Chronic stable diagnoses: Hypothyroidism - continue levothyroxine GERD - continue pantoprazole VTE ppx: Xarelto Diet: T2DM Dispo: hopefully d/c in the next 24 to 48 hrs Admission and Anticipated Discharge Date Admission Date: June 10, 2024 Subjective patient seen and examined, feels better, wheeze is also better Review of Systems Review of Systems: All systems reviewed are negative, apart from the ones contained in the history. Physical Exam Physical Exam: The patient is awake, alert and oriented 3, well developed and well nourished, normocephalic and atraumatic, lying in bed and in no acute distress. HEENT--PERRL, EOMI, mucous membranes and oropharynx mildly dry Neck--supple. No JVD. No bruits. Thyroid normal, trachea midline, no adenopathy. Heart--normal S1 and S2. No murmurs, rubs or gallops. Lungs--expiratory wheeze Abdomen--normal bowel sounds and soft. Extremities--no cyanosis or clubbing. No edema. Dermatologic--normal skin turgor, normal color, no abnormal lymph nodes, no rash. Neurologic--cranial nerves II through XII grossly intact. Rheumatologic--normal range of motion. Psychiatric--normal affect. Results & Data Results & Data Vital Signs (Past 12 Hours) Vital Signs Temp Pulse Pulse Resp BP BP Pulse Ox 06/12/24 08:37 97.5 F L 77 20 144/85 H 92 06/12/24 07:30 78 06/12/24 07:23 78 16 98 06/12/24 05:55 06/12/24 04:00 97.9 F 82 18 144/83 H 95 06/12/24 02:30 81 18 98 06/11/24 22:45 98.1 F 91 H 18 128/88 98 Pulse Ox O2 Del Method O2 Del Method O2 Flow Rate O2 Flow Rate 06/12/24 08:37 Room Air 06/12/24 07:30 06/12/24 07:23 Nasal Cannula 2 06/12/24 05:55 94 Nasal Cannula 2 06/12/24 04:00 Nasal Cannula 2 06/12/24 02:30 Nasal Cannula 2 06/11/24 22:45 Room Air PG Care Time/CCT Total # of Minutes Spent Total Time Spent with Patient: Total time spent is greater than 50% in coordination of care (as documented) at patient's floor/unit and/or counseling patient: Coding Level of Care Code 03614 SUB INP/OBS CARE MIN Diagnoses COPD exacerbation J44.1 Acute on chronic respiratory failure with hypoxia J96.21 Paroxysmal atrial fibrillation I48.0 Atrial fibrillation type: paroxysmal Hypokalemia E87.6 Venous ulcer of left leg I83.029; L97.929 Type 2 diabetes mellitus with obesity E11.69; E66.9 Obstructive sleep apnea G47.33 Time Spent (min) 35 (3) Atrial fibrillation Atrial fibrillation type: paroxysmal Qualified Code(s): I48.0 - Paroxysmal atrial fibrillation
[2024-06-12] MEDS: predniSONE 20 MG TAB PO SCH (11:29)
[2024-06-12] MEDS: CHLORPHENIRAMINE MALEATE 4 MG TABLET PO SCH (11:30)
[2024-06-13] MEDS: DOCUSATE SODIUM 100 MG CAP PO PRN (07:44)
--- NOTE | 2024-06-13 11:18 | Hospitalist Progress Note ---
Date of Service June 13, 2024 Assessment & Plan (1) COPD exacerbation: (2) Acute on chronic respiratory failure with hypoxia: (3) Atrial fibrillation: (4) Hypokalemia: (5) Venous ulcer of left leg: (6) Type 2 diabetes mellitus with obesity: (7) Obstructive sleep apnea: Plan Patient is a 78-year-old female with a past medical history of COPD on 2L O2 hs, chronic venous ulcers of the left lower extremity, type II DM, LISSETH, A-fib on Xarelto, GERD, hypothyroidism. She was seen in the ER for cough and wheezing that was unrelieved with 3 DuoNeb treatments, 125 Mg IV Solu-Medrol, and Zithromax. She is being admitted for COPD exacerbation. COPD Excaerbation patient presents with cough, sputum production, and wheezing x 3 days baseline - 2L O2 at bedtime and as needed, also uses home nebs Found to be in exacerbation, with expiratory wheeze on exam CXR negative Hypoxic in ED 88% RA -> baseline 2L NC clinically much improved, wheeze is better Continue Albuterol and Budesonide Continue with azithromycin change Solu-Medrol 40 twice daily to PO Prednisone 40mg BID flutter valve QID, incentive spirometry, Mucinex, Tessalon perle Now on room air Afib Has a hx of afib, on Xarelto at home In A-fib on admission EKG tachycardic on admission, HR 125 -> ordered 5mg IV Lopressor on admission continue Xarelto and metoprolol HR is now under better control hypokalemia suspect secondary to decreased p.o. intake, on lasix 20 mg daily Replace as needed venous stasis ulcers Left LE chronic, hx of ablation with Dr. Riggins, follows with wound care and has home health Completed course of amoxicillin / wound care MWF - dressed with Aquacel Ag and Coban light wraps elevated left LE DM Controlled on metformin and Ozempic at home; hold Most recent A1C 6.2 SSI with target BSG range 110-140mg/dL, CF 20, carb ratio 7 T2DM diet #LISSETH was to have home CPAP set up this week Uses 2L O2 via nasal cannula at bedtime Will trial CPAP while here Chronic stable diagnoses: Hypothyroidism - continue levothyroxine GERD - continue pantoprazole VTE ppx: Xarelto Diet: T2DM Dispo: hopefully d/c in the next 24hrs, awaiting PT eval. patient has home PT, but she comes once a week Admission and Anticipated Discharge Date Admission Date: June 10, 2024 Subjective patient seen and examined, feels better, wheeze is also better Review of Systems Review of Systems: All systems reviewed are negative, apart from the ones contained in the history. Physical Exam 2 Physical Exam: The patient is awake, alert and oriented 3, well developed and well nourished, normocephalic and atraumatic, lying in bed and in no acute distress. HEENT--PERRL, EOMI, mucous membranes and oropharynx mildly dry Neck--supple. No JVD. No bruits. Thyroid normal, trachea midline, no adenopathy. Heart--normal S1 and S2. No murmurs, rubs or gallops. Lungs--expiratory wheeze Abdomen--normal bowel sounds and soft. Extremities--no cyanosis or clubbing. No edema. Dermatologic--normal skin turgor, normal color, no abnormal lymph nodes, no rash . Neurologic--cranial nerves II through XII grossly intact. Rheumatologic--normal range of motion. Psychiatric--normal affect. Results & Data Results & Data Vital Signs (Past 12 Hours) Vital Signs Temp Pulse Pulse Resp BP Pulse Ox O2 Del Method 06/13/24 08:53 Room Air, Nasal Cannula 06/13/24 08:12 97.3 F L 95 H 20 152/87 H 94 Room Air 06/13/24 07:12 91 H 18 98 Nasal Cannula 06/13/24 07:00 88 06/13/24 04:00 98.4 F 88 18 146/83 H 98 Nasal Cannula 06/13/24 03:29 76 18 97 Nasal Cannula O2 Flow Rate 06/13/24 08:53 06/13/24 08:12 06/13/24 07:12 2 06/13/24 07:00 06/13/24 04:00 2 06/13/24 03:29 2 PG Care Time/CCT Total # of Minutes Spent Total Time Spent with Patient: Total time spent is greater than 50% in coordination of care (as documented) at patient's floor/unit and/or counseling patient: Coding Level of Care Code 65525 SUB INP/OBS CARE 2/35MIN Diagnoses COPD exacerbation J44.1 Acute on chronic respiratory failure with hypoxia J96.21 Paroxysmal atrial fibrillation I48.0 Atrial fibrillation type: paroxysmal Hypokalemia E87.6 Venous ulcer of left leg I83.029; L97.929 Type 2 diabetes mellitus with obesity E11.69; E66.9 Obstructive sleep apnea G47.33 Time Spent (min) 35 (3) Atrial fibrillation Atrial fibrillation type: paroxysmal Qualified Code(s): I48.0 - Paroxysmal atrial fibrillation
[2024-06-13 15:11] VITALS: O2SAT 97
[2024-06-13 15:45] VITALS: RESP 20; TEMP 98.1
--- NOTE | 2024-06-13 15:54 | Discharge Summary ---
Date of Service June 13, 2024 Admission HPI Per Admitting Provider Patient is a 78-year-old female with a past medical history of COPD on 2L O2 hs, chronic venous ulcers of the left lower extremity, type II DM, LISSETH, A-fib on Xarelto, GERD, hypothyroidism. She was seen in the ER for cough and wheezing that was unrelieved with 3 DuoNeb treatments, 125 Mg IV Solu-Medrol, and Zithromax. She is being admitted for COPD exacerbation. She stated that she began with symptoms of sore throat, cough with yellow/green sputum production, wheezing, weakness, headaches, eye pain, chills, dyspnea on exertion. She did take her temperature and it was afebrile; 98.8 F. She also has had a decreased p.o. intake for the past few days. She uses her oxygen and a chest but has not required more during the day at home. She uses DuoNebs twice daily. Patient denies chest pain, abdominal pain, nausea, vomiting, diarrhea, constipation, edema. She follows with wound care for her chronic venous ulcers. She has home health Wednesday and Wednesday and goes to the wound care clinic on Wednesdays. She completed a course of amoxicillin 06/08. She elevates her leg and drinks protein shakes to promote healing. She took her home medications to this morning, she is due for her evening doses; compliant on Xarelto. She wishes to be full code. Admission Exam (Per Admitting) Constitutional The patient is awake, alert and oriented 3, well developed and well nourished, normocephalic and atraumatic, lying in bed and in no acute distress. HEENT--PERRL, EOMI, mucous membranes and oropharynx mildly dry Neck--supple. No JVD. No bruits. Thyroid normal, trachea midline, no adenopathy. Heart--normal S1 and S2. No murmurs, rubs or gallops. Lungs--clear bilaterally, no respiratory distress, no accessory muscle use. Abdomen--normal bowel sounds and soft. Extremities--no cyanosis or clubbing. No edema. Dermatologic--normal skin turgor, normal color, no abnormal lymph nodes, no rash. Neurologic--cranial nerves II through XII grossly intact. Rheumatologic--normal range of motion. Psychiatric--normal affect. Discharge Data Consultations 06/10/24 21:12 ED Decision to Admit Stat Hospital Course (1) COPD exacerbation: (2) Acute on chronic respiratory failure with hypoxia: (3) Atrial fibrillation: (4) Hypokalemia: (5) Venous ulcer of left leg: (6) Type 2 diabetes mellitus with obesity: (7) Obstructive sleep apnea: Plan Patient is a 78-year-old female with a past medical history of COPD on 2L O2 hs, chronic venous ulcers of the left lower extremity, type II DM, LISSETH, A-fib on Xarelto, GERD, hypothyroidism. She was seen in the ER for cough and wheezing that was unrelieved with 3 DuoNeb treatments, 125 Mg IV Solu-Medrol, and Zithromax. She is being admitted for COPD exacerbation. COPD Excaerbation patient presents with cough, sputum production, and wheezing x 3 days baseline - 2L O2 at bedtime and as needed, also uses home nebs Found to be in exacerbation, with expiratory wheeze on exam CXR negative Hypoxic in ED 88% RA -> baseline 2L NC clinically much improved, wheeze is better Continue Albuterol and Budesonide Continue with azithromycin for 5 more days PO Prednisone 40mg daily for 5 days PT Afib Has a hx of afib, on Xarelto at home In A-fib on admission EKG tachycardic on admission, HR 125 -> ordered 5mg IV Lopressor on admission continue Xarelto and metoprolol HR is now under better control hypokalemia suspect secondary to decreased p.o. intake, on lasix 20 mg daily Replace as needed venous stasis ulcers Left LE chronic, hx of ablation with Dr. Riggins, follows with wound care and has home health Completed course of amoxicillin 06/09 wound care MWF - dressed with Aquacel Ag and Coban light wraps elevated left LE DM Controlled on metformin and Ozempic at home; hold Most recent A1C 6.2 SSI with target BSG range 110-140mg/dL, CF 20, carb ratio 7 T2DM diet #LISSETH was to have home CPAP set up this week Uses 2L O2 via nasal cannula at bedtime Will trial CPAP while here Chronic stable diagnoses: Hypothyroidism - continue levothyroxine GERD - continue pantoprazole VTE ppx: Xarelto Diet: T2DM Dispo: d/c home with PT Coding Level of Care Code 42462 INP/OBS DISCH >30 MIN Diagnoses COPD exacerbation J44.1 Acute on chronic respiratory failure with hypoxia J96.21 Paroxysmal atrial fibrillation I48.0 Atrial fibrillation type: paroxysmal Hypokalemia E87.6 Venous ulcer of left leg I83.029; L97.929 Type 2 diabetes mellitus with obesity E11.69; E66.9 Obstructive sleep apnea G47.33 Time Spent (min) 35
[2024-06-13 16:13] VITALS: BP 128/88; PULSE 104
== END 2024-06-13 17:19 | disposition home health service (06) | DRG 190 ==
LOC: ED 18:10 → SUATTDRO 22:13 → INTOOBSV 22:13 → EDINP 22:13

== ENCOUNTER 2024-09-11 16:38 | Observation (INO) ==
--- NOTE | 2024-09-11 17:43 | Emergency Department Note ---
Impression & Plan Acute exacerbation of chronic obstructive pulmonary disease, Influenza A, Hypoxia, Pneumonia ED Provider Note NAME: NIRMAL RODRIGUEZ AGE: 78 SEX: F : 1945 ARRIVES VIA: Walk-In INFORMANT: Patient, ED PROVIDER(S): Jake Rinaldi DO CHIEF COMPLAINT: Shortness of breath HPI: The patient is a 78-year-old female who presented to the emergency department for an evaluation of shortness of breath. The patient describes shortness of breath that began over the weekend. She does have a history of COPD and wears supplemental oxygen at home. She has had to increase her oxygen at home. The patient denies having any hemoptysis. She denies having any chest pain. She is also noticed shortness of breath with exertion and generalized weakness. She denies having any black or tarry stools. ROS: See above HPI for pertinent positives & negatives. A total of 10 systems reviewed and were otherwise negative. PAST MEDICAL HISTORY: See Below PAST SURGICAL HISTORY: See Below FAMILY HISTORY: See Below SOCIAL HISTORY: See Below HOME MEDICATIONS: See Below ALLERGIES: See Below VITALS: See Below PHYSICAL EXAMINATION: GENERAL: Patient is awake alert in no acute distress patient is resting comfortably and showing no signs of anxiety EYES: The conjunctivae are clear. The pupils are round and reactive. EARS, NOSE, MOUTH AND THROAT: The nose is without any evidence of any deformity. NECK: The neck is nontender and supple. RESPIRATORY: Diminished breath sounds are noted throughout. Scattered rhonchi and expiratory wheezing was noted. There was no conversational dyspnea. CARDIOVASCULAR: Tachycardic and regular heart sounds were noted to auscultation. There is no definite murmur. GASTROINTESTINAL: The abdomen is soft. Abdomen is nontender. MUSCULOSKELETAL/EXTREMITIES: There is no evidence of gross deformity full range of motion is noted in the hips and shoulders. SKIN: The skin was warm and dry. There is no significant pedal edema or calf tenderness. NEUROLOGIC: Patient is awake alert and oriented x3 MEDICAL DECISION MAKING: The patient is a 78-year-old female who presented to the emergency department at the request of her home health nurse for an evaluation of difficulty breathing. The patient normally does not wear oxygen during the day but wears it at night for comfort. She was found to be hypoxic. She was treated with DuoNeb therapy in the emergency department. The patient's presentation appears to be more consistent with influenza however her chest x-ray did show signs of infiltrate. I discussed the patient's laboratory and radiographic studies with her and her family member. I discussed her condition with the on-call [facility] hospitalist. They have agreed to evaluate the patient in the emergency department for further management and disposition. Triage Nursing notes reviewed. Prior medical records reviewed Vital Signs: reviewed and remarkable for hypoxia. Differential diagnosis: Reactive airway disease, pneumonia, pneumothorax, COPD, CHF, infections, cardiac ischemia, pulmonary embolism, musculoskeletal, gastrointestinal, as well as other pathologies. ER treatment provided: See below Diagnostics interpreted by me: ECG: EKG was obtained in the emergency department. My interpretation is atrial fibrillation with rapid ventricular response. Heart rate was 107 bpm. Right bundle block pattern was noted. This was compared to a tracing from August 03, 2024. No changes were noted. Cardiac Monitoring: An order was placed for continuous cardiac monitoring. The monitor shows a rate of 113 bpm with atrial fibrillation. Laboratory studies: As stated above and show below. Imaging studies: See below. Radiographic imaging was reviewed by myself Consultation(s): I discussed this case with Dr. Rhodes who is on-call for the [facility] hospitalist group. Past Med/Surg History Problem List (Updated 09/11/24 @ 22:00 by Jake Rinaldi DO) Pneumonia (Acute) Hypoxia (Acute) Influenza A (Acute) Acute exacerbation of chronic obstructive pulmonary disease (Acute) Acquired foot deformity Left foot pain Pressure injury of deep tissue of left foot Acute on chronic respiratory failure with hypoxia COPD exacerbation Callus of toe Staph aureus infection Pseudomonas infection History of total abdominal hysterectomy bso Cervical stenosis of spinal canal Rotator cuff tear arthropathy of left shoulder Morbid obesity with BMI of 50.0-59.9, adult Abnormal ankle brachial index Venous ulcer of left leg (Acute) Type 2 diabetes mellitus with obesity Osteoporosis Prolapse of female pelvic organs Mixed incontinence Cystocele with prolapse Poor balance Hypothyroid (Chronic) Autonomic neuropathy (Chronic 09/03/12) Atrial fibrillation (Acute) Hyperlipemia (Chronic) Asthma SSS (sick sinus syndrome) RBBB (right bundle branch block) Dermatophytosis of the trunk Diabetic neuropathy Restrictive lung disease Right lumbar radiculopathy Venous stasis ulcer of left lower leg with edema of left lower leg (Acute) Chronic venous insufficiency of lower extremity (Chronic) History of right knee joint replacement Obstructive sleep apnea (Acute) Metabolic syndrome Morbid obesity Slow transit constipation Chronic venous insufficiency Vertigo Balance disorder Hammertoe of right foot (Chronic) GERD (gastroesophageal reflux disease) COPD (chronic obstructive pulmonary disease) (Acute) Anticoagulant long-term use (Acute) xarelto daily Left knee DJD Urinary incontinence Nocturnal hypoxemia Hypertension CHF (congestive heart failure) Medical History Rhinovirus infection Elevated brain natriuretic peptide (BNP) level Shortness of breath History of skin ulcer of lower extremity lt leg, currently has healing wounds/ulcers, being treated in [facility] wound care Morbid obesity with BMI of 45.0-49.9, adult History of intestinal obstruction History of gout Hoarseness of voice Hypothyroidism Prediabetes diet controlled-"i'm not very good at following it" History of basal cell carcinoma Glaucoma PVD (peripheral vascular disease) Osteoarthritis HLD (hyperlipidemia) On home oxygen therapy 2 lpm qHS and prn Peripheral neuropathy Sacral fracture As seen on MRI 01/25/2020, occult right hemisacrum fracture Asthma inhaler daily/prn, nebulizer prn Afib on xarelto; follows with Dr. Zimmer Surgical History Cataract extraction status, right eye Hx of cataract extraction LT. Status post sclerotherapy of varicose veins (~11/06/20) @ [facility] History of tooth extraction History of intestinal surgery S/P thyroid biopsy History of basal cell carcinoma (BCC) excision Status post endovenous radiofrequency ablation of saphenous vein History of endovenous ablation of incompetent vein radiofrequency. Type of vein not specified in CCD History of total knee arthroplasty Rt History of hernia repair History of decompression of median nerve at carpal tunnel (neuroplasty) History of laparoscopic cholecystectomy Family History Father Skin cancer Pulmonary embolism Father Gout Other No family history of adverse response to anesthesia Denies family history of Ovarian cancer Prostate cancer Myocardial infarction Breast cancer Lung cancer Colorectal cancer Social History Smoking Status: Never smoker Second Hand Exposure: No; Do You Dip or Chew Tobacco: No; Hx Alcohol Use: No Hx Substance Use: No Preferred Language: Marshallese Communication Ability: Effective Visual Impairment: Limited Hearing Ability: Normal Hyperbaric Nurse Required: No Beliefs That Will Affect Care: None marital status: Current Living Situation: Alone current occupational status: retired 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 ONE CHILD IN [place]. AND ANOTHER LIVES ABOUT AN HOUR AND 1/2 AWAY FROM . Feels Safe at Home: Yes Safety Concerns Comment: Considered Life Alert but has her phone with her. Childhood Exposure to Second-Hand Smoke: No Diet: low salt caffeine: Yes (1-2 cups in am per day.) during the past year weight has: remained stable Dental Care, Regularly: Yes Physical Activity Frequency: Does not Exercise Seatbelt Use: always Sunscreen Use: Yes Do you think of yourself as: straight/heterosexual Gender Identity: Female Assistive Devices: Cane, Oxygen - at Night and Walker Allergies Allergies Allergy/AdvReac Type Severity Reaction Status Date / Time pecan nut Allergy Severe TONGUE Verified 09/06/24 11:45 SWELLS house dust Allergy Intermediate SNEEZING, Verified 08/30/24 11:24 CONGESTION Sulfa (Sulfonamide AdvReac Intermediate YEAST Verified 08/30/24 11:24 Antibiotics) INFECTION Home Meds Home Medications Medication Instructions Recorded Confirmed calcium 500 mg (as 1 tab PO QPM 01/14/19 09/11/24 carbonate)-vitamin D3 5 mcg (200 unit) tablet cyclosporine 0.05 % eye drops in a 1 drops OPB BID 01/14/19 09/11/24 dropperette (Restasis) latanoprost 0.005 % eye drops 1 drops OPB HS 01/14/19 09/11/24 ascorbic acid (vitamin C) 500 mg 500 mg PO QDL 09/15/22 09/11/24 tablet (Vitamin C) acetaminophen 500 mg tablet 1,000 mg PO TID PRN Fever Or Pain 06/10/24 09/11/24 (Tylenol Extra Strength) arformoterol 15 mcg/2 mL solution 2 ml inhalation AMHS 06/10/24 09/11/24 for nebulization (Brovana) atorvastatin 20 mg tablet 20 mg PO QAM 06/10/24 09/11/24 chlorpheniramine maleate 4 mg 4 mg PO QAM 06/10/24 09/11/24 tablet azithromycin 250 mg tablet 250 mg PO 3XWK 09/11/24 09/11/24 docusate sodium 100 mg capsule 200 mg PO DAILY 09/11/24 09/11/24 Previous Rx's Medication Instructions Recorded nebulizer accessories #1 ea 03/26/20 nebulizers #1 ea 09/09/20 compression socks, x-large #2 ea 11/07/20 miscellaneous medical supply #1 ea 11/07/20 Shower Chair #1 ea 01/22/22 nebulizer accessories #1 ea 01/27/22 furosemide 20 mg tablet 20 mg PO QAM #90 tabs 08/04/23 walker #1 ea 08/30/23 levothyroxine 75 mcg tablet 75 mcg PO QAM #90 tabs 02/22/24 CPAP Supplies #1 ea 03/13/24 alendronate 70 mg tablet (Fosamax) 70 mg PO WK #12 tabs 03/16/24 blood sugar diagnostic (OneTouch #100 ea 03/16/24 Ultra Test strips) blood-glucose meter (OneTouch #1 ea 03/16/24 Ultra2 Meter) lancets 30 gauge (OneTouch Delica #100 ea 03/16/24 Plus Lancet) CPAP Supplies #1 04/18/24 Oxygen Home #1 04/18/24 nebulizer accessories #1 04/18/24 CPAP Machine #1 ea 06/01/24 pantoprazole 40 mg tablet,delayed 40 mg PO QAM #90 tabs 06/29/24 release nystatin 100,000 unit/gram topical 1 applic topical TID PRN Skin 07/11/24 cream Irritation #30 grams budesonide 0.5 mg/2 mL suspension 0.5 mg (2 mL) inhalation BID 30 07/20/24 for nebulization days #120 mL apixaban 5 mg tablet (Eliquis) 5 mg PO BID #180 tabs 08/03/24 metoprolol succinate 100 mg 100 mg PO DAILY #90 tabs 08/03/24 tablet,extended release 24 hr metformin 500 mg tablet 500 mg PO QAM #90 tabs 08/16/24 semaglutide 0.25 mg or 0.5 mg (2 0.5 mg (0.736 mL) subcut .q7days 08/17/24 mg/3 mL) subcutaneous pen injector 28 days #3 mL (Ozempic) amlodipine 5 mg tablet 5 mg PO QAM #90 tabs 08/21/24 gabapentin 300 mg capsule 300 mg PO TID 90 days #270 caps 08/24/24 Results & Data (ED) Vital Signs Vital Signs - 24 hr 09/11/24 16:45 09/11/24 16:50 09/11/24 17:22 Temperature 37.1 C Temperature Source Temporal Artery Scan Pulse Rate 110 H 117 H Pulse Rate [Left Apical] Respiratory Rate 20 Respiratory Effort / Characteristics Non-Labored Spontaneous Respiratory Depth Normal Respiratory Pattern Regular Blood Pressure 106/75 Blood Pressure [Right Arm] Blood Pressure Mean 85 Blood Pressure Mean [Right Arm] Blood Pressure Position Sitting Pulse Oximetry 87 L 93 Oxygen Delivery Method Room Air Nasal Cannula Oxygen Flow Rate 2 Sepsis Recent Fever Within 48 Hours No Sepsis New/Unexplained Change in Mental Status N/A Sepsis Action Taken by Nursing No Action Required 09/11/24 18:18 09/11/24 18:30 09/11/24 18:30 Temperature Temperature Source Pulse Rate 103 H Pulse Rate [Left Apical] 106 H Respiratory Rate 12 16 Respiratory Effort / Characteristics Non-Labored Spontaneous Respiratory Depth Normal Respiratory Pattern Regular Blood Pressure 135/100 Blood Pressure [Right Arm] 124/80 Blood Pressure Mean 108 Blood Pressure Mean [Right Arm] 94 Blood Pressure Position Pulse Oximetry 96 94 Oxygen Delivery Method Nasal Cannula Nasal Cannula Oxygen Flow Rate 2 2 Sepsis Recent Fever Within 48 Hours Sepsis New/Unexplained Change in Mental Status Sepsis Action Taken by Nursing 09/11/24 18:42 09/11/24 19:24 09/11/24 19:39 Temperature Temperature Source Pulse Rate 99 H 92 H 90 Pulse Rate [Left Apical] Respiratory Rate 14 19 21 Respiratory Effort / Characteristics Respiratory Depth Respiratory Pattern Blood Pressure Blood Pressure [Right Arm] Blood Pressure Mean Blood Pressure Mean [Right Arm] Blood Pressure Position Pulse Oximetry 94 92 92 Oxygen Delivery Method Nasal Cannula Nasal Cannula Nasal Cannula Oxygen Flow Rate 2 2 2 Sepsis Recent Fever Within 48 Hours Sepsis New/Unexplained Change in Mental Status Sepsis Action Taken by Nursing 09/11/24 19:42 09/11/24 19:51 09/11/24 20:01 Temperature Temperature Source Pulse Rate 93 H 98 H Pulse Rate [Left Apical] Respiratory Rate 23 13 Respiratory Effort / Characteristics Respiratory Depth Respiratory Pattern Blood Pressure 122/93 Blood Pressure [Right Arm] Blood Pressure Mean 104 Blood Pressure Mean [Right Arm] Blood Pressure Position Pulse Oximetry 92 93 Oxygen Delivery Method Nasal Cannula Nasal Cannula Oxygen Flow Rate 2 2 Sepsis Recent Fever Within 48 Hours Sepsis New/Unexplained Change in Mental Status Sepsis Action Taken by Nursing 09/11/24 20:42 09/11/24 20:51 09/11/24 21:12 Temperature Temperature Source Pulse Rate 91 H 92 H 113 H Pulse Rate [Left Apical] Respiratory Rate 17 22 Respiratory Effort / Characteristics Respiratory Depth Respiratory Pattern Blood Pressure Blood Pressure [Right Arm] Blood Pressure Mean Blood Pressure Mean [Right Arm] Blood Pressure Position Pulse Oximetry 90 90 Oxygen Delivery Method Nasal Cannula Nasal Cannula Oxygen Flow Rate 2 2 Sepsis Recent Fever Within 48 Hours Sepsis New/Unexplained Change in Mental Status Sepsis Action Taken by Care Home Medications Current Medication List: was personally reviewed by me Laboratory Data Attestation: I reviewed the patient's lab results. 09/11/24 18:00 09/11/24 18:00 Lab Results 09/11/24 09/11/24 09/11/24 Range/Units 17:05 18:00 19:02 WBC 3.78 L (4.8-10.8) K/ul RBC 4.75 (4.20-5.40) M/uL Hgb 13.6 (12.0-16.0) g/dl Hct 41.5 (37.0-47.0) % MCV 87.4 (80.0-100.0) fL MCH 28.6 (25.0-34.0) pg MCHC 32.8 (32.0-36.0) g/dL RDW Std Deviation 47.4 H (36.4-46.3) fL RDW Coeff of Sonal 14.6 H (11.5-14.5) % Plt Count 175 (130-400) K/uL MPV 10.0 (9.4-12.4) fL Immature Gran % (Auto) 0.3 % Neut % (Auto) 56.1 % Lymph % (Auto) 25.1 % Cedar % (Auto) 17.7 % Eos % (Auto) 0.3 % Baso % (Auto) 0.5 % Neut # (Auto) 2.12 (1.40-6.50) K/uL Lymph # (Auto) 0.95 L (1.20-3.40) K/uL Cedar # (Auto) 0.67 H (0.11-0.59) K/uL Eos # (Auto) 0.01 (0.00-0.50) K/uL Baso # (Auto) 0.02 (0.00-0.20) K/uL Immature Gran # (Auto) 0.01 (0.01-0.20) K/uL PT Cancelled 11.4 INR Cancelled 1.1 APTT Cancelled 31 PTT Ratio Cancelled 1.2 Sodium 136 (136-145) mmol/L Potassium 3.5 (3.5-5.1) mmol/L Chloride 98 (98-107) mmol/L Carbon Dioxide 30 (21-32) mmol/L Anion Gap 8 (3-11) BUN 20 (6-23) mg/dl Creatinine 1.07 (0.6-1.2) mg/dl Est Cr Clr Drug Dosing 55.1 ml/min eGFR 53.83 BUN/Creatinine Ratio 18.7 (10-20) Glucose 91 (70-99(Fasting)) mg/dl Calcium 8.7 (8.6-10.3) mg/dl Total Bilirubin 0.4 (0.2-1.0) mg/dl AST 32 (13-39) U/L ALT 15 (7-52) U/L Alkaline Phosphatase 63 (34-104) U/L Troponin I High Sens 12.2 (0-14) pg/ml Total Protein 6.9 (6.0-8.3) gm/dl Albumin 3.7 (3.4-5.0) gm/dl Globulin 3.2 (2.5-4.0) gm/dl Albumin/Globulin Ratio 1.2 (0.9-2) SARS-CoV-2 (PCR) NEGATIVE (Negative) Influenza Type A (PCR) Positive A (Neg) Influenza Type B (PCR) Negative (Neg) RSV (RT-PCR) Negative (Neg) Administered Medications Discontinued Medications Acetaminophen (Acetaminophen 325 Mg Tab) 650 mg PO NOW STA Stop: 09/11/24 18:21 Last Admin: 09/11/24 18:22 Dose: 650 mg Documented By: [facility] Albuterol (Albut/Ipratrop 3mg/0.5mg Neb 3 Ml Vial) 3 ml NEB NOW STA; Protocol Stop: 09/11/24 17:54 Last Admin: 09/11/24 17:57 Dose: 3 ml Documented By: MADDI Dexamethasone Sodium Phosphate (DexamethasonePf 10 Mg/Ml Vial) 10 mg IV NOW ONE Stop: 09/11/24 19:14 Last Admin: 09/11/24 19:17 Dose: 10 mg Documented By: MADDI Ceftriaxone Sodium (Rocephin) 2,000 mg in 50 mls @ 100 mls/hr IV NOW STA Stop: 09/11/24 20:19 Last Admin: 09/11/24 20:38 Dose: 100 mls/hr Documented By: MADDI Oseltamivir Phosphate (Oseltamivir Phosphate Susp 75 Mg/12.5 Ml Udp) 75 mg PO NOW STA Stop: 09/11/24 18:35 Last Admin: 09/11/24 19:16 Dose: 75 mg Documented By: MADDI Imaging Data Attestation: I personally reviewed and interpreted this imaging study as follows: My Impression: 1 view chest x-ray was obtained in the emergency department. My interpretation is no free air, possible infiltrate at the right base, final report below. Radiologist's Impression: Chest X-Ray 09/11/24 16:50 EXAM: XR chest 1V portable CLINICAL HISTORY: Chest pain, nonspecific TECHNIQUE: An X-ray image of the chest is obtained in AP portable projection. COMPARISON: dated 06/10/2024. FINDINGS: Pulmonary Parenchyma: Faint infiltration in the right lower lung zone noted. (New finding) No evidence of pleural effusion or pleural thickening. Heart and Mediastinum: Heart size is large with both nancy congestion. No mediastinal widening or masses. Bony Thorax: Bony thorax appears intact without fractures or deformities. Soft Tissues: Soft tissues overlying the chest wall are unremarkable. IMPRESSION: 1. Faint infiltration in the right lower lung zone noted. (New finding) 2. Heart size is large with both nancy congestion. 3. No interval change. Electronically signed by Emmanuel Martínez 09-11-2024 7:20 PM Discharge Plan Visit Data Chief Complaint: Congestion Stated Complaint: CONGESTION, WEAKNESS, SOB ED Provider: Jake Rinaldi Discharge Problem: Acute exacerbation of chronic obstructive pulmonary disease, Influenza A, Hypoxia, Pneumonia Patient Disposition: Being Evaluated by Hospitalist Forms Stand Alone Forms: My [facility] Prescriptions Prescriptions: No Action gabapentin 300 mg capsule 300 mg PO TID 90 Days Qty: 270 3RF (DME) nebulizer accessories Misc See Rx Instructions .ROUTE .MEDSUPPLY Qty: 1 0RF Rx Instructions: NEBULIZER TUBING. (DME) nebulizers Misc See Rx Instructions .ROUTE .MEDSUPPLY Qty: 1 0RF Rx Instructions: Nebulizer and nebulizer set up. DX: J44.9 (DME) compression socks, x-large Misc See Rx Instructions .ROUTE .MEDSUPPLY Qty: 2 0RF Rx Instructions: SIZE X-LARGE WITHOUT TOES R60.9 I87.2 (DME) miscellaneous medical supply Misc See Rx Instructions .ROUTE .MEDSUPPLY Qty: 1 0RF Rx Instructions: OXYGEN TUBING J45.909 J98.4 G47.34 (DME) nebulizer accessories Kit See Rx Instructions .Route Qty: 1 0RF Rx Instructions: As directed furosemide 20 mg tablet 20 mg PO QAM Qty: 90 3RF Rx Instructions: TAKE 1 TABLET BY MOUTH EVERY MORNING (DME) walker Misc See Rx Instructions .Route Qty: 1 0RF Rx Instructions: As directed levothyroxine 75 mcg tablet 75 mcg PO QAM Qty: 90 3RF (DME) CPAP Supplies Misc See Rx Instructions .Route Qty: 1 3RF Rx Instructions: Supplies needed for daily use of CPAP as directed 8cmH20 Cflex 1 (Mask, headgear, filters, tubing, swivel) pantoprazole 40 mg tablet,delayed release (DR/EC) 40 mg PO QAM Qty: 90 3RF nystatin 100,000 unit/gram cream 1 applic TOP TID PRN (Reason: Skin Irritation) Qty: 30 1RF Patient Comments: pt stated she only uses the cream Rx Instructions: alternate application with powder budesonide 0.5 mg/2 mL suspension for nebulization 0.5 mg inhalation BID 30 Days Qty: 120 4RF metformin 500 mg tablet 500 mg PO QAM Qty: 90 3RF Ozempic 0.25 mg or 0.5 mg (2 mg/3 mL) pen injector 0.5 mg subcut .q7days 28 Days Qty: 3 2RF Rx Instructions: FRIDAYS amlodipine 5 mg tablet 5 mg PO QAM Qty: 90 3RF (DME) CPAP Machine Misc See Rx Instructions .Route Qty: 1 0RF Rx Instructions: CPAP 8 cmH2O with C-Flex of 1, nasal pillow or cushion, heated humidification, compliance download capabilities, DME: [facility] home care ([facility] [place]) Shower Chair [facility] [place] See Rx Instructions .Route Qty: 1 0RF Rx Instructions: Bariatric shower chair calcium carbonate-vitamin D3 500 mg(1,250mg) -200 unit tablet 1 tab PO QPM Patient Comments: evening cyclosporine [Restasis] 0.05 % dropperette 1 drops OPB BID latanoprost 0.005 % drops 1 drops OPB HS metoprolol succinate 100 mg tablet extended release 24 hr 100 mg PO DAILY Qty: 90 3RF Eliquis 5 mg tablet 5 mg PO BID Qty: 180 3RF (DME) blood-glucose meter [OneTouch Ultra2 Meter] [facility] [place] See Rx Instructions .Route Qty: 1 0RF Rx Instructions: Check once daily ([facility] [place]) OneTouch Ultra Test Strip See Rx Instructions .Route Qty: 100 3RF Rx Instructions: Check blood sugar once daily ([facility] [place]) lancets [OneTouch Delica Plus Lancet] 30 gauge [facility] [place] [place] See Rx Instructions .Route Qty: 100 3RF Rx Instructions: check blood sugar once daily alendronate [Fosamax] 70 mg tablet 70 mg PO WK Qty: 12 4RF Rx Instructions: Take 1 tab once weekly with 8 oz. plain water; wait 45 minutes before eating/drinking anything else. Mondays ([facility] [place]) nebulizer accessories Kit See Rx Instructions .Route Qty: 1 11RF Rx Instructions: NEBULIZER TUBING ([facility] [place]) Oxygen Home Liters Per Minute See Rx Instructions .Route Qty: 1 11RF Rx Instructions: OXYGEN TUBING AND NASAL CANNULAS (DME) CPAP Supplies [facility] [place] See Rx Instructions .Route Qty: 1 0RF Rx Instructions: Cpap Accessories: Patient needs fitted for nasal pillows for CPAP machine LISETTE 99 ascorbic acid (vitamin C) [Vitamin C] 500 mg Tablet 500 mg PO QDL Patient Comments: noon docusate sodium 100 mg Capsule 200 mg PO DAILY azithromycin 250 mg tablet 250 mg PO 3XWK Rx Instructions: wednesday,wednesday and fridays acetaminophen [Tylenol Extra Strength] 500 mg tablet 1,000 mg PO TID PRN (Reason: Fever Or Pain) chlorpheniramine maleate 4 mg Tablet 4 mg PO QAM Rx Instructions: pt not sure if she takes atorvastatin 20 mg tablet 20 mg PO QAM arformoterol [Brovana] 15 mcg/2 mL solution for nebulization 2 ml inhalation AMHS Referrals Referrals: Cyndy Stringer MD [Primary Care Provider] -
[2024-09-11] MEDS: ALBUT/IPRATROP 3MG/0.5MG NEB 3 ML VIAL NEB STA (17:57)
[2024-09-11 18:09] LABS: Influenza A virus by PCR Positive (Neg); Influenza B virus by PCR Negative (Neg); RSV by PCR Negative (Neg); SARS CoV2 RNA(COVID-19) Ceph NEGATIVE (Negative)
[2024-09-11 18:22] LABS: Basophils # (auto) 0.02 K/uL (0.00-0.20); Basophils % (auto) 0.5 %; Eosinophils # (auto) 0.01 K/uL (0.00-0.50); Eosinophils % (auto) 0.3 %; Hematocrit (blood only) 41.5 % (37.0-47.0); Hemoglobin 13.6 g/dl (12.0-16.0); Immature Granulocytes # (auto) 0.01 K/uL (0.01-0.20); Immature Granulocytes % (auto) 0.3 %; Lymphocytes # (auto) 0.95 K/uL (1.20-3.40); Lymphocytes % (auto) 25.1 %; Mean Corpuscular Hemoglobin 28.6 pg (25.0-34.0); Mean Corpuscular Hgb Conc 32.8 g/dL (32.0-36.0); Mean Corpuscular Volume 87.4 fL (80.0-100.0); Monocytes # (auto) 0.67 K/uL (0.11-0.59); Monocytes % (auto) 17.7 %; Neutrophils # (auto) 2.12 K/uL (1.40-6.50); Neutrophils % (auto) 56.1 %; Platelet Count 175 K/uL (130-400); RDW Coefficient of Variation 14.6 % (11.5-14.5); RDW Standard Deviation 47.4 fL (36.4-46.3); Red Blood Count 4.75 M/uL (4.20-5.40); White Blood Count 3.78 K/ul (4.8-10.8)
[2024-09-11] MEDS: ACETAMINOPHEN 325 MG TAB PO STA (18:22)
[2024-09-11 18:35] LABS: Albumin Globulin Ratio 1.2 (0.9-2); BUN Creatinine Ratio 18.7 (10-20); Bilirubin,Total 0.4 mg/dl (0.2-1.0); Calcium 8.7 mg/dl (8.6-10.3); Creatinine Clr Calc Pharmacy 55.1 ml/min; Globulin 3.2 gm/dl (2.5-4.0); Potassium 3.5 mmol/L (3.5-5.1); Total Protein 6.9 gm/dl (6.0-8.3)
[2024-09-11 18:42] LABS: Troponin I High Sensitivity 12.2 pg/ml (0-14)
[2024-09-11] MEDS: OSELTAMIVIR PHOSPHATE SUSP 75 MG/12.5 ML UDP PO STA (19:16)
[2024-09-11] MEDS: dexAMETHasone**PF** 10 MG/ML VIAL IV ONE (19:17)
--- NOTE | 2024-09-11 19:20 | XRay Report ---
EXAM: XR chest 1V portable CLINICAL HISTORY: Chest pain, nonspecific TECHNIQUE: An X-ray image of the chest is obtained in AP portable projection. COMPARISON: CR dated 06/10/2024. FINDINGS: Pulmonary Parenchyma: Faint infiltration in the right lower lung zone noted. (New finding) No evidence of pleural effusion or pleural thickening. Heart and Mediastinum: Heart size is large with both nancy congestion. No mediastinal widening or masses. Bony Thorax: Bony thorax appears intact without fractures or deformities. Soft Tissues: Soft tissues overlying the chest wall are unremarkable. IMPRESSION: 1. Faint infiltration in the right lower lung zone noted. (New finding) 2. Heart size is large with both nancy congestion. 3. No interval change. Electronically signed by Emmanuel Martínez 09-11-2024 7:20 PM
[2024-09-11 19:50] LABS: INR 1.1 (0.9-1.1); Partial Thromboplastin Ratio 1.2; Partial Thromboplastin Time 31 Seconds (21-31); Prothrombin Time 11.4 Seconds (9.0-12.0)
--- NOTE | 2024-09-11 20:32 | History & Physical Report ---
Date of Service September 11, 2024 Assessment & Plan (1) Influenza A: (2) Pneumonia: (3) Atrial fibrillation: (4) COPD exacerbation: (5) Type 2 diabetes mellitus with obesity: (6) Hypothyroid: (7) Hyperlipemia: (8) Restrictive lung disease: (9) Obstructive sleep apnea: (10) GERD (gastroesophageal reflux disease): (11) Hypertension: (12) CHF (congestive heart failure): Plan Patient is a 78-year-old female with past medical history of COPD/restrictive lung disease, diabetes mellitus type 2, hypothyroidism, A-fib on chronic Eliquis, hyperlipidemia, LISSETH (on home CPAP), GERD, hypertension, CHF, chronic venous insufficiency with left lower extremity wounds, and baseline ambulatory dysfunction with home use of a walker who was admitted due to acute hypoxic respiratory failure secondary to acute influenza A infection and possible pneumonia. Acute Hypoxic respiratory Failure / Flu A / ?Pneumonia - Patient with 3-4 days of worsening SOB/ARMANDO, cough, congestion, fatigue, decreased appetite and lower PO intake, feverish sensation but no quantified fevers, and nausea w/o vomiting No chest pain but has felt fluttering occasionally since sxs began especially when feeling more SOB/ARMANDO; possibly related to known a-fib since she was told her "pulse was high" - Even before current illness, was using neb treatments at home 3x a day to "prevent getting sick", and after illness began does feel like neb therapies were helping - VS showing oxygen saturation of 87% at room air that corrected to 93% w/ NC - CXR w/ new RLL infiltrate, which in the setting of pre-existing lung disease and influenza infection, plus feverish sensation and new oxygen need does raise concern for secondary bacterial pna. however, hx of chf and recent salt intake plus increasing ARMANDO also suggestive of acute HF exacerbation although consider this less likely as patient appears volume contracted Will order procal and BNP to assess further - Ordered Ceftriaxone and Azithromycin - Hold off on IV steroids but will continue Budesonide inh - Duoneb scheduled Q6HWA and prn Q3H - Mucinex, Tesriccoon Perle - Tamiflu - Incentive spirometry - Admit to Med/Tele COPD - No baseline home oxygen use - Follows pulm as an outpatient - Budesonide inh and Duoneb prn A-fib // Chronic anticoagulation with Eliquis - Currently rate controlled - Continue home Metoprolol - Continue Eliquis LISSETH - Continue CPAP hs DM-2 // Neuropathy - Uses Metformin at home - Hgb A1c from 03/02/2024 was 6.2% - Hgb A1c ordered with am labs - Lantus and SSI - Continue home gabapentin HTN - Continue amlodipine 5 mg qam Hypothyroidism - Continue Levothyroxine 75 mcg qam CHF - TTE from 02/2024 showing EF of 60-65% with nml LV systolic function and biatrial dilation - Ate johnson this am but has had poor PO intake since Wednesday (09/08/24) due to current influenza infection - Hold home lasix as patient is likely volume contracted from poor PO intake (weight on last visit around a month ago was 116.37 kg and today was 113.2 kg) - Daily weights and monitor Is and Os GERD - Continue Pantoprazole HLD - Atorvastatin 20 mg qam Dispo: Med/Tele Diet: HH, DM-2 VTE ppx: Eliquis GI ppx: Pantoprazole Code Status: FULL History of Present Illness Chief Complaint: Shortness of Breath Primary Care Provider: Cyndy Stringer MD Patient is a 78-year-old female with past medical history of COPD/restrictive lung disease, diabetes mellitus type 2, hypothyroidism, A-fib on chronic Eliquis, hyperlipidemia, LISSETH (on home CPAP), GERD, hypertension, CHF, chronic venous insufficiency with left lower extremity wounds, and baseline ambulatory dysfunction with home use of a walker who came to ED due to progressively worsening SOB/ARMANDO. Symptoms began on Wednesday (09/08/24) and included weakness, feverish sensation (no quantified fevers), dizziness, dry mouth, decreased appetite with associated decreased oral intake and subsequent 6 pound weight loss, nausea without vomiting, decreased energy, and progressively worsening shortness of breath and dyspnea on exertion. Prior to current illness, patient had been using nebulizer treatments in the morning, noon, and night to prevent appearance of symptoms, and once symptoms began she kept using the neb treatments that she had at home with some improvement of symptoms but shortness of breath returned shortly after. Did not have any associated chest pain or tightness, but does endorse fluttering sensation in her chest whenever she was ambulating towards the bathroom and was feeling especially dyspneic with the exertion. When this happened, a nurse who comes to her house had told her that her "pulse was high", but this resolved spontaneously with time. ED Course: Given ceftriaxone 2 g x 1, given dexamethasone 10 mg IV x 1, given Tamiflu 75 mg p.o. x 1, DuoNeb therapy x 1 Labs/Imaging: CBC without leukocytosis, hemoglobin of 13.6, platelets of 175. CMP with no significant electrolyte abnormalities, creatinine of 1.07, glucose of 99. LFTs unremarkable. Troponin of 12.2. Influenza A+. Chest x-ray with new right lower lobe infiltrate. Blood cultures pending. Medical History: [Reviewed] Medications: [Reviewed] Surgical History: [Reviewed] Family history: [Reviewed] Allergies: [Reviewed] Social History: [Reviewed] Code Status: FULL Allergies Allergy/AdvReac Type Severity Reaction Status Date / Time pecan nut Allergy Severe TONGUE Verified 09/06/24 11:45 SWELLS house dust Allergy Intermediate SNEEZING, Verified 08/30/24 11:24 CONGESTION Sulfa (Sulfonamide AdvReac Intermediate YEAST Verified 08/30/24 11:24 Antibiotics) INFECTION Home Medications Medication Instructions Recorded Confirmed Type calcium 500 mg (as 1 tab PO QPM 01/14/19 09/11/24 History carbonate)-vitamin D3 5 mcg (200 unit) tablet cyclosporine 0.05 % eye drops in a 1 drops OPB BID 01/14/19 09/11/24 History dropperette (Restasis) latanoprost 0.005 % eye drops 1 drops OPB HS 01/14/19 09/11/24 History nebulizer accessories #1 ea 03/26/20 08/07/24 Rx nebulizers #1 ea 09/09/20 08/07/24 Rx compression socks, x-large #2 ea 11/07/20 08/07/24 Rx miscellaneous medical supply #1 ea 11/07/20 08/07/24 Rx Shower Chair #1 ea 01/22/22 08/07/24 Rx nebulizer accessories #1 ea 01/27/22 08/07/24 Rx ascorbic acid (vitamin C) 500 mg 500 mg PO QDL 09/15/22 09/11/24 History tablet (Vitamin C) furosemide 20 mg tablet 20 mg PO QAM #90 tabs 08/04/23 09/11/24 Rx walker #1 ea 08/30/23 08/07/24 Rx levothyroxine 75 mcg tablet 75 mcg PO QAM #90 tabs 02/22/24 09/11/24 Rx CPAP Supplies #1 ea 03/13/24 08/07/24 Rx alendronate 70 mg tablet (Fosamax) 70 mg PO WK #12 tabs 03/16/24 09/11/24 Rx blood sugar diagnostic (OneTouch #100 ea 03/16/24 08/07/24 Rx Ultra Test strips) blood-glucose meter (OneTouch #1 ea 03/16/24 08/07/24 Rx Ultra2 Meter) lancets 30 gauge (OneTouch Delica #100 ea 03/16/24 08/07/24 Rx Plus Lancet) CPAP Supplies #1 ea 04/18/24 08/07/24 Rx Oxygen Home #1 ea 04/18/24 08/07/24 Rx nebulizer accessories #1 ea 04/18/24 08/07/24 Rx CPAP Machine #1 ea 06/01/24 08/07/24 Rx acetaminophen 500 mg tablet 1,000 mg PO TID PRN Fever Or Pain 06/10/24 09/11/24 History (Tylenol Extra Strength) arformoterol 15 mcg/2 mL solution 2 ml inhalation AMHS 06/10/24 09/11/24 History for nebulization (Neha) atorvastatin 20 mg tablet 20 mg PO QAM 06/10/24 09/11/24 History chlorpheniramine maleate 4 mg 4 mg PO QAM 06/10/24 09/11/24 History tablet pantoprazole 40 mg tablet,delayed 40 mg PO QAM #90 tabs 06/29/24 09/11/24 Rx release nystatin 100,000 unit/gram topical 1 applic topical TID PRN Skin 07/11/24 09/11/24 Rx cream Irritation #30 grams budesonide 0.5 mg/2 mL suspension 0.5 mg (2 mL) inhalation BID 30 07/20/24 09/11/24 Rx for nebulization days #120 mL apixaban 5 mg tablet (Eliquis) 5 mg PO BID #180 tabs 08/03/24 09/11/24 Rx metoprolol succinate 100 mg 100 mg PO DAILY #90 tabs 08/03/24 09/11/24 Rx tablet,extended release 24 hr metformin 500 mg tablet 500 mg PO QAM #90 tabs 08/16/24 09/11/24 Rx semaglutide 0.25 mg or 0.5 mg (2 0.5 mg (0.736 mL) subcut .q7days 08/17/24 09/11/24 Rx mg/3 mL) subcutaneous pen injector 28 days #3 mL (Ozempic) amlodipine 5 mg tablet 5 mg PO QAM #90 tabs 08/21/24 09/11/24 Rx gabapentin 300 mg capsule 300 mg PO TID 90 days #270 caps 08/24/24 09/11/24 Rx azithromycin 250 mg tablet 250 mg PO 3XWK 09/11/24 09/11/24 History docusate sodium 100 mg capsule 200 mg PO DAILY 09/11/24 09/11/24 History Past Med/Surg History Problem List Pneumonia (Acute) Hypoxia (Acute) Influenza A (Acute) Acute exacerbation of chronic obstructive pulmonary disease (Acute) Acquired foot deformity Left foot pain Pressure injury of deep tissue of left foot Acute on chronic respiratory failure with hypoxia COPD exacerbation Callus of toe Staph aureus infection Pseudomonas infection History of total abdominal hysterectomy bso Cervical stenosis of spinal canal Rotator cuff tear arthropathy of left shoulder Morbid obesity with BMI of 50.0-59.9, adult Abnormal ankle brachial index Venous ulcer of left leg (Acute) Type 2 diabetes mellitus with obesity Osteoporosis Prolapse of female pelvic organs Mixed incontinence Cystocele with prolapse Poor balance Hypothyroid (Chronic) Autonomic neuropathy (Chronic 09/03/12) Atrial fibrillation (Acute) Hyperlipemia (Chronic) Asthma SSS (sick sinus syndrome) RBBB (right bundle branch block) Dermatophytosis of the trunk Diabetic neuropathy Restrictive lung disease Right lumbar radiculopathy Venous stasis ulcer of left lower leg with edema of left lower leg (Acute) Chronic venous insufficiency of lower extremity (Chronic) History of right knee joint replacement Obstructive sleep apnea (Acute) Metabolic syndrome Morbid obesity Slow transit constipation Chronic venous insufficiency Vertigo Balance disorder Hammertoe of right foot (Chronic) GERD (gastroesophageal reflux disease) COPD (chronic obstructive pulmonary disease) (Acute) Anticoagulant long-term use (Acute) xarelto daily Left knee DJD Urinary incontinence Nocturnal hypoxemia Hypertension CHF (congestive heart failure) Medical History Rhinovirus infection Elevated brain natriuretic peptide (BNP) level Shortness of breath History of skin ulcer of lower extremity lt leg, currently has healing wounds/ulcers, being treated in [facility] wound care Morbid obesity with BMI of 45.0-49.9, adult History of intestinal obstruction History of gout Hoarseness of voice Hypothyroidism Prediabetes diet controlled-"i'm not very good at following it" History of basal cell carcinoma Glaucoma PVD (peripheral vascular disease) Osteoarthritis HLD (hyperlipidemia) On home oxygen therapy 2 lpm qHS and prn Peripheral neuropathy Sacral fracture As seen on MRI 01/25/2020, occult right hemisacrum fracture Asthma inhaler daily/prn, nebulizer prn Afib on xarelto; follows with Dr. Zimmer Surgical History Cataract extraction status, right eye Hx of cataract extraction LT. Status post sclerotherapy of varicose veins (~11/06/20) @ [facility] History of tooth extraction History of intestinal surgery S/P thyroid biopsy History of basal cell carcinoma (BCC) excision Status post endovenous radiofrequency ablation of saphenous vein History of endovenous ablation of incompetent vein radiofrequency. Type of vein not specified in CCD History of total knee arthroplasty Rt History of hernia repair History of decompression of median nerve at carpal tunnel (neuroplasty) History of laparoscopic cholecystectomy Family History Father Skin cancer Pulmonary embolism Father Gout Other No family history of adverse response to anesthesia Denies family history of Ovarian cancer Prostate cancer Myocardial infarction Breast cancer Lung cancer Colorectal cancer Social History Smoking Status: Never smoker Second Hand Exposure: No; Do You Dip or Chew Tobacco: No; Hx Alcohol Use: No Hx Substance Use: No Preferred Language: Kyrgyz Communication Ability: Effective Visual Impairment: Limited Hearing Ability: Normal Wheel Presser Required: No Beliefs That Will Affect Care: None marital status: Current Living Situation: Alone current occupational status: retired 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 ONE CHILD IN [place]. AND ANOTHER LIVES ABOUT AN HOUR AND 1/2 AWAY FROM PT. Other Information That Helps Us Care for You: No Feels Safe at Home: Yes Safety Concerns: Feels Safe At This Time Safety Concerns Comment: Considered Life Alert but has her phone with her. Childhood Exposure to Second-Hand Smoke: No Diet: low salt caffeine: Yes (1-2 cups in am per day.) during the past year weight has: remained stable Dental Care, Regularly: Yes Physical Activity Frequency: Does not Exercise Seatbelt Use: always Sunscreen Use: Yes Do you think of yourself as: straight/heterosexual Gender Identity: Female Assistive Devices: CPAP, Oxygen - at Night and Walker Review of Systems Review of Systems: As per HPI Physical Exam Physical Exam: GENERAL: AAOx4, afebrile, calm, NAD HEAD: AT, NC EYES: EOM intact, ELZA CHEST: symmetric chest expansions with respirations CARDIO: irregular rhythm, regular rate, no r/m/g PULMONARY: diffuse end-expiratory wheezing and rhonchi, normal respiratory effort, no respiratory distress, NC in place with O2 saturation between 89-93% GI: soft, non-distended, non-tender EXTREMITIES: no swelling or calf tenderness b/l, left LE with offloading shoe and compression stocking w/o skin erthema Results & Data Results & Data Vital Signs (Past 12 Hours) Vital Signs Temp Pulse Pulse Resp BP BP Pulse Ox 09/11/24 19:42 93 H 23 92 09/11/24 19:39 90 21 92 09/11/24 19:24 92 H 19 92 09/11/24 18:42 99 H 14 94 09/11/24 18:30 135/100 09/11/24 18:30 103 H 16 94 09/11/24 18:18 106 H 12 124/80 96 09/11/24 17:22 117 H 09/11/24 16:50 93 09/11/24 16:45 37.1 C 110 H 20 106/75 87 L O2 Del Method O2 Flow Rate 09/11/24 19:42 Nasal Cannula 2 09/11/24 19:39 Nasal Cannula 2 09/11/24 19:24 Nasal Cannula 2 09/11/24 18:42 Nasal Cannula 2 09/11/24 18:30 09/11/24 18:30 Nasal Cannula 2 09/11/24 18:18 Nasal Cannula 2 09/11/24 17:22 09/11/24 16:50 Nasal Cannula 2 09/11/24 16:45 Room Air Laboratory Results Laboratory Results WBC 3.78 K/ul (4.8-10.8) L 09/11/24 18:00 RBC 4.75 M/uL (4.20-5.40) 09/11/24 18:00 Hgb 13.6 g/dl (12.0-16.0) 09/11/24 18:00 Hct 41.5 % (37.0-47.0) 09/11/24 18:00 MCV 87.4 fL (80.0-100.0) 09/11/24 18:00 MCH 28.6 pg (25.0-34.0) 09/11/24 18:00 MCHC 32.8 g/dL (32.0-36.0) 09/11/24 18:00 RDW Std Deviation 47.4 fL (36.4-46.3) H 09/11/24 18:00 RDW Coeff of Sonal 14.6 % (11.5-14.5) H 09/11/24 18:00 Plt Count 175 K/uL (130-400) 09/11/24 18:00 MPV 10.0 fL (9.4-12.4) 09/11/24 18:00 Immature Gran % (Auto) 0.3 % 09/11/24 18:00 Neut % (Auto) 56.1 % 09/11/24 18:00 Lymph % (Auto) 25.1 % 09/11/24 18:00 Bertie % (Auto) 17.7 % 09/11/24 18:00 Eos % (Auto) 0.3 % 09/11/24 18:00 Baso % (Auto) 0.5 % 09/11/24 18:00 Neut # (Auto) 2.12 K/uL (1.40-6.50) 09/11/24 18:00 Lymph # (Auto) 0.95 K/uL (1.20-3.40) L 09/11/24 18:00 Bertie # (Auto) 0.67 K/uL (0.11-0.59) H 09/11/24 18:00 Eos # (Auto) 0.01 K/uL (0.00-0.50) 09/11/24 18:00 Baso # (Auto) 0.02 K/uL (0.00-0.20) 09/11/24 18:00 Immature Gran # (Auto) 0.01 K/uL (0.01-0.20) 09/11/24 18:00 PT 11.4 Seconds (9.0-12.0) 09/11/24 19:02 INR 1.1 (0.9-1.1) 09/11/24 19:02 APTT 31 Seconds (21-31) 09/11/24 19:02 PTT Ratio 1.2 09/11/24 19:02 Sodium 136 mmol/L (136-145) 09/11/24 18:00 Potassium 3.5 mmol/L (3.5-5.1) 09/11/24 18:00 Chloride 98 mmol/L (98-107) 09/11/24 18:00 Carbon Dioxide 30 mmol/L (21-32) 09/11/24 18:00 Anion Gap 8 (3-11) 09/11/24 18:00 BUN 20 mg/dl (6-23) 09/11/24 18:00 Creatinine 1.07 mg/dl (0.6-1.2) 09/11/24 18:00 Est Cr Clr Drug Dosing 55.1 ml/min 09/11/24 18:00 eGFR 53.83 09/11/24 18:00 BUN/Creatinine Ratio 18.7 (10-20) 09/11/24 18:00 Glucose 91 mg/dl (70-99(Fasting)) 09/11/24 18:00 Calcium 8.7 mg/dl (8.6-10.3) 09/11/24 18:00 Total Bilirubin 0.4 mg/dl (0.2-1.0) 09/11/24 18:00 AST 32 U/L (13-39) 09/11/24 18:00 ALT 15 U/L (7-52) 09/11/24 18:00 Alkaline Phosphatase 63 U/L (34-104) 09/11/24 18:00 Troponin I High Sens 12.2 pg/ml (0-14) 09/11/24 18:00 B-Natriuretic Peptide 104 pg/ml (0-100) H 09/11/24 19:03 Total Protein 6.9 gm/dl (6.0-8.3) 09/11/24 18:00 Albumin 3.7 gm/dl (3.4-5.0) 09/11/24 18:00 Globulin 3.2 gm/dl (2.5-4.0) 09/11/24 18:00 Albumin/Globulin Ratio 1.2 (0.9-2) 09/11/24 18:00 Procalcitonin 0.12 ng/ml (0-0.5) 09/11/24 19:03 Nasal Screen MRSA (PCR) Negative (Negative) 09/12/24 01:47 SARS-CoV-2 (PCR) NEGATIVE (Negative) 09/11/24 17:05 Influenza Type A (PCR) Positive (Neg) A 09/11/24 17:05 Influenza Type B (PCR) Negative (Neg) 09/11/24 17:05 RSV (RT-PCR) Negative (Neg) 09/11/24 17:05 Impressions Chest X-Ray 09/11/24 16:50 EXAM: XR chest 1V portable CLINICAL HISTORY: Chest pain, nonspecific TECHNIQUE: An X-ray image of the chest is obtained in AP portable projection. COMPARISON: CR dated 06/10/2024. FINDINGS: Pulmonary Parenchyma: Faint infiltration in the right lower lung zone noted. (New finding) No evidence of pleural effusion or pleural thickening. Heart and Mediastinum: Heart size is large with both nancy congestion. No mediastinal widening or masses. Bony Thorax: Bony thorax appears intact without fractures or deformities. Soft Tissues: Soft tissues overlying the chest wall are unremarkable. IMPRESSION: 1. Faint infiltration in the right lower lung zone noted. (New finding) 2. Heart size is large with both nancy congestion. 3. No interval change. Electronically signed by Emmanuel Martínez 09-11-2024 7:20 PM Supervising Physician Co-Signing Physician Notes Patient seen and examined, chart reviewed, case discussed with Dr. Martin and I agree with the assessment and plan as above. In brief, patient is a 78-year-old female with history of restrictive lung disease, COPD presenting with cough and shortness of breath. Patient found to be positive for influenza A. Hypoxic upon arrival at 87% on room air. On physical exam patient is resting comfortably, no acute distress, supplemental oxygen in place Skinwarm, dry, intact, no rashes or lesions HEENTmoist mucous membranes, neck supple Heart+ S1, S2, irregularly irregular, no murmur/rub/gallops Lungs equal air entry bilaterally with normal chest wall mechanics, coarse breath sounds bilaterally with diffuse rhonchi and end expiratory wheezing, deep cough noted on exam with production of yellow sputum Abdomen positive bowel sounds, soft, nontender, nondistended extremitieswarm, well-perfused Labs and images reviewed. Significant for leukopenia WBC = 3.78 BNP slightly elevated at 104 Procalcitonin normal at 0.12 Influenza A positive Chest x-ray with faint infiltrate in the right lower lung Assessment/[id number] female with restrictive lung disease, COPD presenting with cough, shortness of breath, acute hypoxic respiratory failure in setting of influenza A infection Admit to medical with telemetry Scheduled nebs and as needed Ceftriaxone and azithromycin for now Remainder as above Resident Activity Tracking Resident Involvement: Resident Care Provided Care Provided: Adult Hospital Medicine (2) Pneumonia Laterality: right Lung location: lower lobe of lung Pneumonia type: due to unspecified organism Qualified Code(s): J18.9 - Pneumonia, unspecified organism (11) Hypertension Hypertension type: primary hypertension Qualified Code(s): I10 - Essential (primary) hypertension
[2024-09-11] MEDS: cefTRIAXone SODIUM 2,000 MG/50 ML BAG IV STA (20:38)
[2024-09-11] MEDS ORDERED: DEXTROSE 50% 50 ML SYRINGE IV PRN (23:27)
[2024-09-11] MEDS ORDERED: BENZONATATE 100 MG CAPSULE PO PRN (23:27)
[2024-09-11] MEDS ORDERED: GLUCOSE 40% GEL 15 GM TUBE PO PRN (23:27)
[2024-09-11] MEDS ORDERED: CARBOHYDRATES FOR HYPOGLYCEMIA PO PRN (23:27)
[2024-09-11] MEDS ORDERED: MELATONIN 3 MG TAB PO PRN (23:27)
[2024-09-11] MEDS ORDERED: GLUCAGON FOR INJ 1 MG VIAL SQ PRN (23:27)
[2024-09-11] MEDS ORDERED: ALBUT/IPRATROP 3MG/0.5MG NEB 3 ML VIAL NEB PRN (23:27)
[2024-09-11] MEDS ORDERED: POLYETHYLENE (MIRALAX) 17 GM PACK PO PRN (23:27)
[2024-09-11] MEDS ORDERED: GLUCOSE 10 TAB/TUBE PO PRN (23:27)
[2024-09-12] MEDS: LANTUS PER UNIT CHARGE SQ SCH (00:36)
[2024-09-12] MEDS: APIXABAN 5 MG TABLET PO SCH (00:36)
[2024-09-12] MEDS: guaiFENesin 600 MG TABCR PO SCH (00:36)
[2024-09-12] MEDS: AZITHROMYCIN 500 MG/255 ML BAG IV SCH (00:37)
[2024-09-12] MEDS: GABAPENTIN 300 MG CAP PO SCH (00:37)
[2024-09-12] MEDS: FLUTICASONE FUROATE 100MCG 14 PUFFS/INHALER INH SCH (01:00)
[2024-09-12] MEDS: ALBUT/IPRATROP 3MG/0.5MG NEB 3 ML VIAL NEB SCH ×2 (01:02→13:20)
[2024-09-12] MEDS: INSULIN ASPART PER UNIT CHARGE SC SCH ×2 (01:49→13:11)
--- NOTE | 2024-09-12 03:22 | Billing Data ---
Date of Service September 11, 2024 Coding Level of Care Code 73757 INT INP/OBS CARE
--- OUTSIDE RECORDS SUMMARY | 2024-09-12 04:17 | External Medical Summary | Continuity of Care Document ---
Author Name Unknown Organization [facility] [address] [facility] [address] Address [address] [facility] 2 [place], [place] [id number] Care Team Providers Care Addictions Counselor Name Role Phone Cyndy Stringer Primary Care Physician [phone] Encounter [facility] [id number] Date(s): 08/15/24 - 08/15/24 [facility] [address] [facility] [address] [facility] 2 [place], [place] [id number] Encounter Diagnosis AK (actinic keratosis)(Discharge Diagnosis) - 08/15/24 Seborrheic keratoses, inflamed(Discharge Diagnosis) - 08/15/24 Seborrheic keratoses(Discharge Diagnosis) - 08/15/24 Discharge Disposition: Home or Self Care Attending Physician: MD Radha, Adolfo Urias Encounter Type: Clinic Allergies, Adverse Reactions, Alerts Substance Criticality Severity Reaction Reaction Severity Status sulfa drugs CANDIDIASIS Active Dust Nasal congestion Act theodore Pollen Nasal congestion Act theodore tree nuts 1 pecans Active 1toungue swelling- pecans Assessment and Plan Extracted from: Title:Clinical Document Author:MD Radha, [facility] Date:08/15/24 OUTPATIENT NOTE Name: NIRMAL ALFONSO Patient Number:[id number] : 1945 Date of Service: 08/15/2024 _ Nirmal Alfonso returns for skin examination. She notes scaling papules on the face including 2 on the left cheek/infraorbital area which were treated with cryotherapy with patient consent as actinic keratoses. Side effects were discussed. Verrucal papule present on the left wrist was treated with cryotherapy with patient consent and at her request as an inflamed seborrheic keratosis. Review of systems medications allergies as noted on the chart. The patient is in stable health. Patient is currently being treated by the wound care clinic for stasis ulcerations on the legs. Examination reveals pleasant well-nourished white female type I skin. Examination of the head, neck, back, arms, hands, fingers reveals scattered seborrheic keratoses on the back which require no further treatment and is otherwise unremarkable. The patient will return in 1 year for reevaluation. Immunizations Given and Recorded Vaccine Date Status [...] 5Result Comment: 2020-11-08: Historical information-source unspecified Medications alendronate 70 mg oral tablet Start: 07/28/24 2:05:00 PM EST, 1 tab, PO, q7days Start Date: 07/28/24 Status: Ordered Repeat number: 1 amLODIPine 5 mg oral tablet TAKE 1 TABLET BY MOUTH EVERY DAY IN THE MORNING Start Date: 01/27/22 Status: Ordered Repeat number: 1 amoxicillin 500 mg oral capsule Start: 09/10/21 9:29:00 AM EDT, 4 each, TAKE ALL 4 CAPS ONE HOUR PRIOR TO DENTAL PROCEDURE Start Date: 09/10/21 Status: Ordered Repeat number: 1 atorvastatin Start: 06/10/18 3:20:00 PM EST, 20 mg =, PO, Daily Start Date: 06/10/18 Status: Ordered Repeat number: 1 cephalexin 500 mg oral capsule TAKE 1 CAPSULE BY MOUTH THREE TIMES A DAY FOR 10 DAYS Start Date: 02/25/24 Status: Ordered Repeat number: 1 ciclopirox 8% topical solution Start: 03/29/24 11:46:00 AM EDT, See Instructions, Disp# 6.6 mL, Refills: 6, APPLY TO AFFECTED AREAONCE PER DAY FOR 6 MONTHS, Pharmacy: [id number] Start Date: 03/29/24 Status: Ordered Quantity: 6.6 Unit: mL Repeat number: 1 cimetidine 400 mg oral tablet Start: 09/10/21 9:30:00 AM EDT, 90 each, TAKE 1 TABLET BY MOUTH AT BEDTIME Start Date: 09/10/21 Status: Ordered Repeat number: 1 Eliquis 5 mg oral tablet Start: 08/15/24 2:48:00 PM EDT, 1 tab, PO, bid Start Date: 08/15/24 Status: Ordered Repeat number: 1 flecainide 100 mg oral tablet Start: 10/30/14 2:48:00 PM EDT, 1 tab, PO, q12h Start Date: 10/30/14 Status: Ordered Repeat number: 1 furosemide 40 mg oral tablet Start: 02/10/13 10:59:00 AM EDT, 0.5 tab, PO, Daily Start Date: 02/10/13 Status: Ordered Repeat number: 1 gabapentin 300 mg oral capsule Start: 02/10/13 11:00:00 AM EDT, 1 cap, PO, tid Start Date: 02/10/13 Status: Ordered Repeat number: 1 ipratropium 0.02% for nebulization Start: 10/30/14 2:48:00 PM EDT, 3 mL, NEB, q6h Start Date: 10/30/14 Status: Ordered Repeat number: 1 latanoprost 0.005% ophthalmic solution Start: 08/17/17 1:04:00 PM EDT, 1 drop, both eyes, qhs Start Date: 08/17/17 Status: Ordered Repeat number: 1 levalbuterol 1.25 mg/3 mL for nebulization Start: 08/17/17 1:04:00 PM EDT, 3 mL, NEB, tid, PRN: as needed for wheezing Start Date: 08/17/17 Status: Ordered Repeat number: 1 levothyroxine 75 mcg (0.075 mg) oral tablet Start: 02/10/13 11:00:00 AM EDT, 1 tab, PO, Daily Start Date: 02/10/13 Status: Ordered Repeat number: 1 metFORMIN 500 mg oral tablet TAKE 1 TABLET BY MOUTH EVERY DAY Start Date: 02/25/24 Status: Ordered Repeat number: 1 metoprolol succinate 100 mg oral tablet, extended release Start: 10/30/14 2:47:00 PM EDT, 1 tab, PO, Daily Start Date: 10/30/14 Status: Ordered Repeat number: 1 montelukast 10 mg oral tablet Start: 08/17/17 1:08:00 PM EDT, 1 tab, PO, qPM Start Date: 08/17/17 Status: Ordered Repeat number: 1 nystatin 100,000 units/g topical cream Start: 02/27/20 2:31:00 PM EDT, See Instructions, Disp# 30 g, Refills: 1, apply to area under breastbid for intertrigo until clear, Pharmacy: [facility]/pharmacy #[id number] Start Date: 02/27/20 Status: Ordered Quantity: 30.0 Unit: g Repeat number: 2 oxygen Start: 03/09/13 3:53:00 PM EDT, oxygen, See Instructions, 2 L during sleep Start Date: 03/09/13 Status: Ordered Repeat number: 1 Ozempic (0.25 mg or 0.5 mg dose) 2 mg/3 mL subQ pen INJECT 0.5 MG UNDER THE SKIN EVERY 7 DAYS FOR 28 DAYS Start Date: 07/28/24 Status: Ordered Repeat number: 1 pantoprazole 40 mg oral delayed release tablet Start: 10/30/14 2:47:00 PM EDT, 1 tab, PO, Daily Start Date: 10/30/14 Status: Ordered Repeat number: 1 pantoprazole 40 mg oral delayed release tablet TAKE 1 TABLET BY MOUTH EVERY MORNING Start Date: 01/27/22 Status: Ordered Repeat number: 1 Restasis 0.05% ophthalmic emulsion Start: 08/17/17 1:01:00 PM EDT, 1 drop, both eyes, q12h Start Date: 08/17/17 Status: Ordered Repeat number: 1 Trelegy Ellipta 200 mcg-62.5 mcg-25 mcg/inh inhalation powder Start: 12/17/22 2:56:00 PM EDT Start Date: 12/17/22 Status: Ordered Repeat number: 1 Trelegy Ellipta 200 mcg-62.5 mcg-25 mcg/inh inhalation powder INHALE 1 PUFF DAILY Start Date: 06/10/22 Status: Ordered Repeat number: 1 Xarelto 20 mg oral tablet Start: 10/30/14 2:45:00 PM EDT, 1 tab, PO, Daily Start Date: 10/30/14 Status: Ordered Repeat number: 1 Xopenex HFA 45 mcg/inh inhalation aerosol Start: 06/10/18 3:22:00 PM EST, 2 puff, inhaled, q4h, PRN: as needed for wheezing Start Date: 06/10/18 Status: Ordered Repeat number: 1 Mental Status 08/15/24 Barriers to Learning one year None evide nt Mandatory Health Literacy Documentation Yes Health Literacy Communication Barriers N ever Primary Language Greek Problem List Condition Confirmation Course Effective Dates Status Health Status Informant Ankle pain, left Confirmed Active Asthma Confirmed Active Afib Confirmed Active Callus Confirmed Active Cellulitis Confirmed 2013 Active COPD (chronic obstructive pulmonary disease) Confirmed Active Diabetes Confirmed Active DM (diabetes mellitus) in Confirmed Active HTN (hypertension) Confirmed Active Hypercholesterolemia Confirmed Active Hypothyroidism Confirmed Active Incisional hernia Confirmed Active Neuropathy Confirmed Active Tinea unguium Confirmed Active Peripheral vascular disease Confirmed Active Venous ulcer of leg Confirmed Active Diagnosis Diagnosis Type Effective Dates Health Status Clinical Service Informant Seborrheic keratoses, inflamed Discharge Diagnosis 08/15/24 Seborrheic keratoses Discharge Diagnosis 08/15/24 AK (actinic keratosis) Discharge Diagnosis 08/15/24 Procedures Procedure Date Related Diagnosis Body Site Status Surgery 2017 Completed Chest x-ray r/t bronchitis 09/2016 Completed Shave biopsy of skin 10/30/14 Comp leted Knee replacement 2007 Complete d Cataract 2 Completed Incisional hernia Complet ed 1Endovenous ablation in legs 2L/R Social History Social History Type Response Smoking Status Never smoked cigaret odalys Sex Female Sex Representation Female (finding) Outpatient Note * MD Radha, Adolfo Urias: PERFORM Event Display: .Outpt Note Authored Date: [id number] OUTPATIENT NOTE Name: NIRMAL ALFONSO Patient Number:1 [id number] : 1945 Date of Service: 08/15/2024 _ Nirmal Alfonso returns for skin examination. She notes scaling papules on the face including 2 on the left cheek/infraorbital area which were treated with cryotherapy with patient consent as actinic keratoses. Side effects were discussed. Verrucal papule present on the left wrist was treated with cryotherapy with patient consent and at her request as an inflamed seborrheic keratosis. Review of systems medications allergies as noted on the chart. The patient is in stable health. Patient is currently being treated by the wound care clinic for stasis ulcerations on the legs. Examination reveals pleasant well-nourished white female type I skin. Examination of the head, neck, back, arms, hands, fingers reveals scattered seborrheic keratoses on the back which require no further treatment and is otherwise unremarkable. The patient will return in 1 year for reevaluation. Electronic Signature on File Electronically Reviewed/Signed by: Adolfo Garcia MD Author Signature Dt/Tm:08/15/2024 03:19 PM Department of Dermatology [facility] Patient Care team information Care Team Personnel Name: MD Stringer Karissa A Position: Referring Member Role: Primary Care Provider Address: [facility] Telecom: [phone] Care Team Related Persons Name: YORDAN MENJIVAR Name: CHARLETTE PURCELL Name: JUSTYN RAGLAND Insurance Providers Guarantor name: NIRMAL ALFONSO Health Plan Information #: 1 Payer: [employer] Member Number: [id number] Policy Number: NA Group Number: [id number] Health Plan Information #: 2 Payer: [employer] Member Number: [id number] Policy Number: NA Group Number: [id number]
[2024-09-12 05:05] LABS: Hematocrit (blood only) 39.7 % (37.0-47.0); Mean Corpuscular Hemoglobin 28.9 pg (25.0-34.0); Mean Corpuscular Hgb Conc 32.7 g/dL (32.0-36.0); Mean Corpuscular Volume 88.2 fL (80.0-100.0); Mean Platelet Volume 9.4 fL (9.4-12.4); Platelet Count 162 K/uL (130-400); RDW Coefficient of Variation 14.5 % (11.5-14.5); RDW Standard Deviation 46.8 fL (36.4-46.3); White Blood Count 1.67 K/ul (4.8-10.8)
[2024-09-12 05:27] LABS: BUN Creatinine Ratio 20.3 (10-20); Calcium 8.4 mg/dl (8.6-10.3); Creatinine Clr Calc Pharmacy 74.7 ml/min; Potassium 3.8 mmol/L (3.5-5.1)
[2024-09-12 05:33] LABS: Echinocytes 1+; Polychromasia 1+
[2024-09-12 05:37] LABS: Basophils # (auto) 0.01 K/uL (0.00-0.20); Basophils % (auto) 0.6 %; Immature Granulocytes # (auto) 0.01 K/uL (0.01-0.20); Immature Granulocytes % (auto) 0.6 %; Lymphocytes # (auto) 0.67 K/uL (1.20-3.40); Lymphocytes % (auto) 40.1 %; Monocytes # (auto) 0.16 K/uL (0.11-0.59); Monocytes % (auto) 9.6 %; Neutrophils # (auto) 0.82 K/uL (1.40-6.50); Neutrophils % (auto) 49.1 %
[2024-09-12 07:08] LABS: Monotest Negative (Negative)
[2024-09-12] MEDS: LEVOTHYROXINE SODIUM 75 MCG TABLET PO SCH (07:10)
[2024-09-12 07:29] LABS: Estimated Average Glucose 123 mg/dl; Hemoglobin A1C 5.9 % (4.5-5.6)
[2024-09-12 07:38] LABS: Folate (Folic Acid),Ser orPlas 14.56 ng/ml (>5.38)
[2024-09-12] MEDS ORDERED: CARBOHYDRATES FOR HYPOGLYCEMIA PO PRN (07:58)
[2024-09-12] MEDS ORDERED: GLUCAGON FOR INJ 1 MG VIAL SQ PRN (07:58)
[2024-09-12] MEDS ORDERED: GLUCOSE 40% GEL 15 GM TUBE PO PRN (07:58)
[2024-09-12] MEDS ORDERED: GLUCOSE 10 TAB/TUBE PO PRN (07:58)
[2024-09-12] MEDS ORDERED: DEXTROSE 50% 50 ML SYRINGE IV PRN (07:58)
[2024-09-12] MEDS ORDERED: methylPREDNISolone 10 mg/mL (For Ped Dose < 7mg) IV SCH (08:00)
[2024-09-12] MEDS: METOPROLOL SUCC 50MG EXT REL TAB PO SCH (08:24)
[2024-09-12] MEDS: PANTOprazole 40 MG TAB PO SCH (08:24)
[2024-09-12] MEDS: ATORVASTATIN 20 MG TAB PO SCH (08:25)
[2024-09-12] MEDS: amLODIPine BESYLATE 5 MG TAB PO SCH (08:25)
[2024-09-12] MEDS: OSELTAMIVIR PHOSPHATE SUSP 30 MG/5 ML UDP PO SCH (09:24)
[2024-09-12] MEDS: methylPREDNISolone 60 MG in SYRINGE 0 ML IV SCH (09:24)
[2024-09-12 10:25] LABS: EBV Early Antigen IgG Ab Negative (Negative); EBV Early Antigen IgG Quant < 5.0 U/mL (< 9.0); EBV Nuclear Antigen IgG Ab Positive
[2024-09-12 10:26] LABS: EBV IgG Quant > 750.0 U/mL (< 18.0)
[2024-09-12 10:29] LABS: EBV IgM Quant < 10.0 U/mL (< 36.0)
--- NOTE | 2024-09-12 11:37 | Electrocardiogram Report ---
Test Reason : Blood Pressure : */* mmHG Vent. Rate : 107 BPM Atrial Rate : * BPM P-R Int : * ms QRS Dur : 144 ms QT Int : 366 ms P-R-T Axes : * 12 -13 degrees QTcB Int : 488 ms Atrial fibrillation with rapid ventricular response Right bundle branch block T wave abnormality, consider lateral ischemia Abnormal ECG When compared with ECG of 03-Aug-2024 15:25, Inverted T waves have replaced nonspecific T wave abnormality in Inferior leads Confirmed by Jese Hoskins ([id number]) on 09/12/2024 11:37:34 AM Referred By: Confirmed By: Jese Hoskins
--- NOTE | 2024-09-12 13:10 | Hospitalist Progress Note ---
Date of Service September 12, 2024 Assessment & Plan (1) Influenza A: Plan: Supportive care. Tamiflu therapy. (2) COPD exacerbation: Plan: Parenteral steroid therapy. Scheduled nebulizers. Treat influenza A (3) Acute respiratory failure with hypoxia: Plan: Supplemental oxygen per nasal cannula to maintain saturation greater than 90%. Wean off as tolerated (4) Type 2 diabetes mellitus with obesity: Plan: ADA diet. Sliding scale coverage. Continue (5) Atrial fibrillation: Plan: Chronic. Telemetry. Continue rate control measures. Continue Eliquis (6) Hypothyroid: Plan: Stable. Continue thyroid replacement (7) Obstructive sleep apnea: Plan: Stable. Continue CPAP at bedtime (8) Hypertension: Plan: Stable. Continue current medical management (9) CHF (congestive heart failure): Plan: Chronic diastolic CHF. No current exacerbation. Monitor intake and output Plan Hopeful discharge back to her home within the next 2 to 3 days Admission and Anticipated Discharge Date Admission Date: September 11, 2024 Subjective Alert and oriented. No distress. She appears to have an exacerbation of her COPD from her influenza A. She is requiring low-flow oxygen at this time. She is now leukopenic consistent with a viral infection. Parenteral steroid therapy has been started along with scheduled nebulizer treatments. Review of Systems 2 Review of Systems: Constitutionalno fever or chills ENTno blurred vision, no double vision, no epistaxis, no sore throat Respiratorynonproductive cough. Wheezing. No pleuritic pain. No hemoptysis. She does have dyspnea on exertion Cardiacno palpitations, no chest pain, no syncope Ag nausea, vomiting, diarrhea, melena, hematochezia GUno urinary retention, no urinary incontinence, no dysuria, no hematuria Musculoskeletalno joint pain, no muscle tenderness Skinno bruising, no rashes, no pruritus Neurono isolated weakness, no paresthesia, no weakness Psychno depression, no anxiety Physical Exam 2 Physical Exam: General-alert and oriented x3, no fever, no chills HEENT-head atraumatic and normocephalic, pupils equal and reactive to light, extraocular muscles intact Neck-no lymphadenopathy or thyromegaly, trachea midline Chest-diminished breath sounds bilaterally. Bilateral expiratory wheezes. No dullness to percussion. No inspiratory rales. Cardiac-irregular rhythm. Controlled rate. Normal S1 and S2 Abdomen-normal bowel sounds, no hepatosplenomegaly Extremities-no cyanosis, clubbing, or edema Neuro-cranial nerves II through XII intact, motor and sensory function within normal limits, strength symmetrical, no focal deficits Psych-normal affect, normal mood Results & Data Results & Data Vital Signs (Past 12 Hours) Vital Signs Temp Pulse Pulse Pulse Resp BP BP 09/12/24 11:19 09/12/24 11:19 09/12/24 10:16 36.6 C 100 H 18 162/97 H 09/12/24 08:28 114 H 19 09/12/24 07:19 113 H 09/12/24 07:05 84 18 09/12/24 06:12 87 19 09/12/24 06:03 80 19 09/12/24 06:00 127/09/12/24 06:00 127/09/12/24 06:00 127/09/12/24 06:00 127/81 09/12/24 05:30 146/94 H 09/12/24 05:30 146/94 H 09/12/24 05:24 81 23 09/12/24 05:12 104 H 17 09/12/24 05:00 86 20 09/12/24 05:00 144/86 H 09/12/24 04:57 76 19 09/12/24 04:48 79 21 09/12/24 04:36 86 20 09/12/24 04:00 88 15 09/12/24 04:00 115/73 09/12/24 04:00 115/73 09/12/24 03:47 85 19 09/12/24 03:39 82 20 09/12/24 03:30 118/69 09/12/24 03:30 118/69 09/12/24 03:30 118/69 09/12/24 03:30 118/69 09/12/24 03:24 85 19 09/12/24 03:00 118/73 09/12/24 03:00 92 H 20 09/12/24 02:32 09/12/24 02:12 92 H 22 09/12/24 02:02 09/12/24 02:00 121/77 09/12/24 02:00 121/77 09/12/24 02:00 121/77 09/12/24 02:00 95 H 20 09/12/24 01:51 86 21 09/12/24 01:31 89 24 09/12/24 01:30 128/90 09/12/24 01:30 128/90 09/12/24 01:27 81 19 09/12/24 01:21 79 20 09/12/24 01:18 91 H 17 09/12/24 01:11 89 21 09/12/24 01:06 85 22 BP Pulse Ox O2 Del Method O2 Flow Rate FiO2 09/12/24 11:19 Nasal Cannula 2 09/12/24 11:19 Nasal Cannula 2 09/12/24 10:16 92 Room Air 09/12/24 08:28 155/115 H 93 Nasal Cannula 2 09/12/24 07:19 09/12/24 07:05 97 Nasal Cannula 4 09/12/24 06:12 94 09/12/24 06:03 95 09/12/24 06:00 09/12/24 06:00 09/12/24 06:00 09/12/24 06:00 09/12/24 05:30 09/12/24 05:30 09/12/24 05:24 93 09/12/24 05:12 09/12/24 05:00 95 09/12/24 05:00 09/12/24 04:57 95 09/12/24 04:48 96 09/12/24 04:36 96 09/12/24 04:00 94 09/12/24 04:00 09/12/24 04:00 09/12/24 03:47 94 30 09/12/24 03:39 95 09/12/24 03:30 09/12/24 03:30 09/12/24 03:30 09/12/24 03:30 09/12/24 03:24 94 09/12/24 03:00 09/12/24 03:00 93 09/12/24 02:32 BiPAP 09/12/24 02:12 94 09/12/24 02:02 BiPAP 09/12/24 02:00 09/12/24 02:00 09/12/24 02:00 09/12/24 02:00 94 BiPAP 09/12/24 01:51 92 09/12/24 01:31 93 30 09/12/24 01:30 09/12/24 01:30 09/12/24 01:27 92 09/12/24 01:21 91 09/12/24 01:18 89 L 09/12/24 01:11 94 30 09/12/24 01:06 Laboratory Results 09/12/24 04:49 09/12/24 04:49 PG Care Time/CCT Total # of Minutes Spent Total Time Spent with Patient: Total time spent is greater than 50% in coordination of care (as documented) at patient's floor/unit and/or counseling patient: Coding Level of Care Code 67058 SUB INP/OBS CARE 3/50MIN Diagnoses Influenza A J10.1 COPD exacerbation J44.1 Acute respiratory failure with hypoxia J96.01 Type 2 diabetes mellitus with obesity E11.69; E66.9 Atrial fibrillation I48.91 Hypothyroid E03.9 Obstructive sleep apnea G47.33 Primary hypertension I10 Hypertension type: primary hypertension CHF (congestive heart failure) I50.9 (8) Hypertension Hypertension type: primary hypertension Qualified Code(s): I10 - Essential (primary) hypertension
[2024-09-12] MEDS: ACETAMINOPHEN 325 MG TAB PO PRN (21:52)
[2024-09-12] MEDS: OSELTAMIVIR PHOSPHATE 75 MG CAP PO SCH (21:52)
[2024-09-12] MEDS: cefTRIAXone SODIUM 2,000 MG/50 ML BAG IV SCH (21:53)
[2024-09-13] MEDS: ONDANSETRON INJ 2 MG/ML 2 ML VIAL IV PRN (03:29)
[2024-09-13 07:25] LABS: Hematocrit (blood only) 40.9 % (37.0-47.0); Hemoglobin 13.5 g/dl (12.0-16.0); Mean Corpuscular Hemoglobin 28.4 pg (25.0-34.0); Mean Corpuscular Volume 86.1 fL (80.0-100.0); Mean Platelet Volume 9.8 fL (9.4-12.4); Platelet Count 174 K/uL (130-400); RDW Coefficient of Variation 14.1 % (11.5-14.5); RDW Standard Deviation 45.1 fL (36.4-46.3); Red Blood Count 4.75 M/uL (4.20-5.40); White Blood Count 3.22 K/ul (4.8-10.8)
[2024-09-13 08:16] LABS: Calcium 8.7 mg/dl (8.6-10.3); Potassium 4.2 mmol/L (3.5-5.1)
[2024-09-13 08:22] LABS: BUN Creatinine Ratio 31.7 (10-20); Creatinine Clr Calc Pharmacy 90.8 ml/min
[2024-09-13 08:26] LABS: ALC (manual) 0.71 K/uL (1.2-3.4); ANC (manual) 2.29 K/uL (1.4-6.5); Large Granular Lymph # (manua 0.32 K/uL; Large Granular Lymph % (manual) 10 %; Lymphocytes # (manual) 0.32 K/uL (1.2-3.4); Lymphocytes % (manual) 10 %; Monocytes # (manual) 0.23 K/uL (0.11-0.59); Monocytes % (manual) 7 %; Neutrophils # (manual) 2.29 K/uL (1.40-6.50); Neutrophils % (manual) 71 %; Plasma Cells # (manual) 0.06 K/uL (0-0); Plasma Cells % (manual) 2 %; RBC Morphology Unremarkable
[2024-09-13] MEDS: ALBUT/IPRATROP 3MG/0.5MG NEB 3 ML VIAL NEB SCH (11:13)
[2024-09-13] MEDS ORDERED: methylPREDNISolone 10 mg/mL (For Ped Dose < 7mg) IV SCH (11:15)
--- NOTE | 2024-09-13 12:59 | Hospitalist Progress Note ---
Date of Service September 13, 2024 Assessment & Plan (1) Influenza A: Plan: Supportive care. Tamiflu therapy. Improving (2) COPD exacerbation: Plan: Parenteral steroid therapy has helped and has been tapered down today, September 13. Continue scheduled nebulizers and treatment of influenza A (3) Acute respiratory failure with hypoxia: Plan: Supplemental oxygen per nasal cannula to maintain saturation greater than 90%. Wean off as tolerated (4) Type 2 diabetes mellitus with obesity: Plan: ADA diet. Sliding scale coverage. Continue basal insulin therapy (5) Atrial fibrillation: Plan: Chronic. Telemetry. Continue rate control measures. Continue Eliquis (6) Hypothyroid: Plan: Stable. Continue thyroid replacement (7) Obstructive sleep apnea: Plan: Stable. Continue CPAP at bedtime (8) Hypertension: Plan: Stable. Continue current medical management (9) CHF (congestive heart failure): Plan: Chronic diastolic CHF. No current exacerbation. Monitor intake and output Plan Hopeful discharge within the next 1-2 days. OT and PT assessments will determine if she can go back home or whether she needs transient rehab placement Admission and Anticipated Discharge Date Admission Date: September 11, 2024 Subjective Alert and oriented. No acute distress. She states she feels somewhat better. She has not coughing up any purulent sputum. Antibiotics have been discontinued. Solu-Medrol has been tapered down. OT and PT assessments have been requested. Review of Systems 2 Review of Systems: Constitutionalno fever or chills ENTno blurred vision, no double vision, no epistaxis, no sore throat Respiratorynonproductive cough. Wheezing. No pleuritic pain. No hemoptysis. She does have dyspnea on exertion Cardiacno palpitations, no chest pain, no syncope Ag nausea, vomiting, diarrhea, melena, hematochezia GUno urinary retention, no urinary incontinence, no dysuria, no hematuria Musculoskeletalno joint pain, no muscle tenderness Skinno bruising, no rashes, no pruritus Neurono isolated weakness, no paresthesia, no weakness Psychno depression, no anxiety Physical Exam 2 Physical Exam: General-alert and oriented x3, no fever, no chills HEENT-head atraumatic and normocephalic, pupils equal and reactive to light, extraocular muscles intact Neck-no lymphadenopathy or thyromegaly, trachea midline Chest-diminished breath sounds bilaterally. Bilateral expiratory wheezes. No dullness to percussion. No inspiratory rales. Cardiac-irregular rhythm. Controlled rate. Normal S1 and S2 Abdomen-normal bowel sounds, no hepatosplenomegaly Extremities-no cyanosis, clubbing, or edema Neuro-cranial nerves II through XII intact, motor and sensory function within normal limits, strength symmetrical, no focal deficits Psych-normal affect, normal mood Results & Data Results & Data Vital Signs (Past 12 Hours) Vital Signs Temp Pulse Pulse Resp BP Pulse Ox O2 Del Method 09/13/24 11:19 36.8 C 98 H 18 138/85 91 Room Air 09/13/24 11:13 103 H 19 90 Nasal Cannula 09/13/24 09:20 Nasal Cannula 09/13/24 07:40 36.5 C 86 16 144/84 H 92 Nasal Cannula 09/13/24 07:06 85 09/13/24 06:54 98 H 18 91 CPAP 09/13/24 04:00 36.6 C 82 18 141/77 H 92 CPAP 09/13/24 03:44 80 21 95 O2 Flow Rate 09/13/24 11:19 09/13/24 11:13 2 09/13/24 09:20 2 09/13/24 07:40 2 09/13/24 07:06 09/13/24 06:54 2 09/13/24 04:00 09/13/24 03:44 2 Laboratory Results 09/13/24 07:05 09/13/24 07:05 PG Care Time/CCT Total # of Minutes Spent Total Time Spent with Patient: Total time spent is greater than 50% in coordination of care (as documented) at patient's floor/unit and/or counseling patient: Coding Level of Care Code 84160 SUB INP/OBS CARE 2/35MIN Diagnoses Influenza A J10.1 COPD exacerbation J44.1 Acute respiratory failure with hypoxia J96.01 Type 2 diabetes mellitus with obesity E11.69; E66.9 Atrial fibrillation I48.91 Hypothyroid E03.9 Obstructive sleep apnea G47.33 Primary hypertension I10 Hypertension type: primary hypertension CHF (congestive heart failure) I50.9 (8) Hypertension Hypertension type: primary hypertension Qualified Code(s): I10 - Essential (primary) hypertension
[2024-09-13] MEDS: methylPREDNISolone 40 MG in SYRINGE 0 ML IV SCH (13:36)
[2024-09-14 08:43] LABS: Hematocrit (blood only) 44.7 % (37.0-47.0); Hemoglobin 14.5 g/dl (12.0-16.0); Mean Corpuscular Hemoglobin 28.3 pg (25.0-34.0); Mean Corpuscular Hgb Conc 32.4 g/dL (32.0-36.0); Mean Corpuscular Volume 87.1 fL (80.0-100.0); Mean Platelet Volume 10.6 fL (9.4-12.4); Platelet Count 167 K/uL (130-400); RDW Coefficient of Variation 14.4 % (11.5-14.5); RDW Standard Deviation 45.8 fL (36.4-46.3); Red Blood Count 5.13 M/uL (4.20-5.40); White Blood Count 6.66 K/ul (4.8-10.8)
[2024-09-14 09:11] LABS: Calcium 8.9 mg/dl (8.6-10.3); Potassium 4.2 mmol/L (3.5-5.1)
[2024-09-14 09:16] LABS: BUN Creatinine Ratio 33.8 (10-20); Creatinine Clr Calc Pharmacy 77.4 ml/min
[2024-09-14 10:01] LABS: Basophils # (auto) 0.01 K/uL (0.00-0.20); Basophils % (auto) 0.2 %; Eosinophils # (auto) 0.01 K/uL (0.00-0.50); Eosinophils % (auto) 0.2 %; Immature Granulocytes # (auto) 0.04 K/uL (0.01-0.20); Immature Granulocytes % (auto) 0.6 %; Lymphocytes # (auto) 1.27 K/uL (1.20-3.40); Lymphocytes % (auto) 19.1 %; Monocytes # (auto) 0.19 K/uL (0.11-0.59); Monocytes % (auto) 2.9 %; Neutrophils # (auto) 5.14 K/uL (1.40-6.50)
--- NOTE | 2024-09-14 11:05 | Hospitalist Progress Note ---
Date of Service September 14, 2024 Assessment & Plan (1) Influenza A: Plan: Supportive care. Tamiflu therapy. Improving (2) COPD exacerbation: Plan: Parenteral steroid therapy has helped and continues. Continue scheduled nebulizers and treatment of influenza A. She will be placed on a prednisone oral tapering dose at discharge (3) Acute respiratory failure with hypoxia: Plan: Resolved. She is now on room air. (4) Type 2 diabetes mellitus with obesity: Plan: ADA diet. Sliding scale coverage. Continue basal insulin therapy (5) Atrial fibrillation: Plan: Chronic. Telemetry. Continue rate control measures. Continue Eliquis (6) Hypothyroid: Plan: Stable. Continue thyroid replacement (7) Obstructive sleep apnea: Plan: Stable. Continue CPAP at bedtime (8) Hypertension: Plan: Stable. Continue current medical management (9) CHF (congestive heart failure): Plan: Chronic diastolic CHF. No current exacerbation. Monitor intake and output Plan Anticipate discharge to home with home health services tomorrow, September 15 Admission and Anticipated Discharge Date Admission Date: September 11, 2024 Subjective Alert and oriented. No distress. She is now on room air. Continued slow gradual improvement. We discussed going home tomorrow, September 15, with home health services. She is in agreement Review of Systems 2 Review of Systems: Constitutionalno fever or chills ENTno blurred vision, no double vision, no epistaxis, no sore throat Respiratorynonproductive cough. Wheezing. No pleuritic pain. No hemoptysis. She does have dyspnea on exertion Cardiacno palpitations, no chest pain, no syncope Ag nausea, vomiting, diarrhea, melena, hematochezia GUno urinary retention, no urinary incontinence, no dysuria, no hematuria Musculoskeletalno joint pain, no muscle tenderness Skinno bruising, no rashes, no pruritus Neurono isolated weakness, no paresthesia, no weakness Psychno depression, no anxiety Physical Exam 2 Physical Exam: General-alert and oriented x3, no fever, no chills HEENT-head atraumatic and normocephalic, pupils equal and reactive to light, extraocular muscles intact Neck-no lymphadenopathy or thyromegaly, trachea midline Chest-diminished breath sounds bilaterally. Bilateral expiratory wheezes. No dullness to percussion. No inspiratory rales. Cardiac-irregular rhythm. Controlled rate. Normal S1 and S2 Abdomen-normal bowel sounds, no hepatosplenomegaly Extremities-no cyanosis, clubbing, or edema Neuro-cranial nerves II through XII intact, motor and sensory function within normal limits, strength symmetrical, no focal deficits Psych-normal affect, normal mood Results & Data Results & Data Vital Signs (Past 12 Hours) Vital Signs Temp Pulse Pulse Resp BP Pulse Ox O2 Del Method 09/14/24 07:47 37.1 C 91 H 18 135/90 94 Room Air 09/14/24 07:35 90 18 89 L Room Air 09/14/24 07:26 Nasal Cannula 09/14/24 04:34 36.6 C 93 H 20 135/82 96 Nasal CPAP 09/14/24 02:40 83 19 93 09/13/24 23:28 36.4 C L 90 17 133/82 93 Nasal Cannula 09/13/24 23:05 87 17 98 O2 Flow Rate 09/14/24 07:47 09/14/24 07:35 09/14/24 07:26 2 09/14/24 04:34 09/14/24 02:40 2 09/13/24 23:28 1.5 09/13/24 23:05 2 Laboratory Results 09/14/24 08:20 09/14/24 08:20 PG Care Time/CCT Total # of Minutes Spent Total Time Spent with Patient: Total time spent is greater than 50% in coordination of care (as documented) at patient's floor/unit and/or counseling patient: Coding Level of Care Code 59703 SUB INP/OBS CARE 2/35MIN Diagnoses Influenza A J10.1 COPD exacerbation J44.1 Acute respiratory failure with hypoxia J96.01 Type 2 diabetes mellitus with obesity E11.69; E66.9 Atrial fibrillation I48.91 Hypothyroid E03.9 Obstructive sleep apnea G47.33 Primary hypertension I10 Hypertension type: primary hypertension CHF (congestive heart failure) I50.9 (8) Hypertension Hypertension type: primary hypertension Qualified Code(s): I10 - Essential (primary) hypertension
[2024-09-15 07:47] VITALS: TEMP 97.9
--- NOTE | 2024-09-15 11:05 | Discharge Summary ---
Discharge Summary Date of Service September 15, 2024 Principal Dx & Hospital Course #1 = Principal Diagnosis (1) Influenza A: Supportive care. Tamiflu therapy while hospitalized. Improved (2) COPD exacerbation: Parenteral steroid therapy was administered while hospitalized. She will be discharged on an oral prednisone tapering dose. (3) Acute respiratory failure with hypoxia: Resolved. She is now on room air. (4) Type 2 diabetes mellitus with obesity: ADA diet. Sliding scale coverage. Continue basal insulin therapy. Resume usual diabetic management regimen at discharge (5) Atrial fibrillation: Chronic. Telemetry. Continue rate control measures. Continue Eliquis (6) Hypothyroid: Stable. Continue thyroid replacement (7) Obstructive sleep apnea: Stable. Continue CPAP at bedtime (8) Hypertension: Stable. Continue current medical management (9) CHF (congestive heart failure): Chronic diastolic CHF. No current exacerbation. Monitor intake and output Plan Home today with home health services, September 15. She will remain on a prednisone tapering dose at discharge. Admission HPI Per Admitting Provider Patient is a 78-year-old female with past medical history of COPD/restrictive lung disease, diabetes mellitus type 2, hypothyroidism, A-fib on chronic Eliquis, hyperlipidemia, LISSETH (on home CPAP), GERD, hypertension, CHF, chronic venous insufficiency with left lower extremity wounds, and baseline ambulatory dysfunction with home use of a walker who came to ED due to progressively worsening SOB/ARMANDO. Symptoms began on Wednesday (09/08/24) and included weakness, feverish sensation (no quantified fevers), dizziness, dry mouth, decreased appetite with associated decreased oral intake and subsequent 6 pound weight loss, nausea without vomiting, decreased energy, and progressively worsening shortness of breath and dyspnea on exertion. Prior to current illness, patient had been using nebulizer treatments in the morning, noon, and night to prevent appearance of symptoms, and once symptoms began she kept using the neb treatments that she had at home with some improvement of symptoms but shortness of breath returned shortly after. Did not have any associated chest pain or tightness, but does endorse fluttering sensation in her chest whenever she was ambulating towards the bathroom and was feeling especially dyspneic with the exertion. When this happened, a nurse who comes to her house had told her that her "pulse was high", but this resolved spontaneously with time. ED Course: Given ceftriaxone 2 g x 1, given dexamethasone 10 mg IV x 1, given Tamiflu 75 mg p.o. x 1, DuoNeb therapy x 1 Labs/Imaging: CBC without leukocytosis, hemoglobin of 13.6, platelets of 175. CMP with no significant electrolyte abnormalities, creatinine of 1.07, glucose of 99. LFTs unremarkable. Troponin of 12.2. Influenza A+. Chest x-ray with new right lower lobe infiltrate. Blood cultures pending. Medical History: [Reviewed] Medications: [Reviewed] Surgical History: [Reviewed] Family history: [Reviewed] Allergies: [Reviewed] Social History: [Reviewed] Code Status: FULL Discharge Exam General-alert and oriented x3, no fever, no chills HEENT-head atraumatic and normocephalic, pupils equal and reactive to light, extraocular muscles intact Neck-no lymphadenopathy or thyromegaly, trachea midline Chest-diminished breath sounds bilaterally. Bilateral and expiratory wheezes are much improved but still present. No dullness to percussion. No inspiratory rales. Cardiac-irregular rhythm. Controlled rate. Normal S1 and S2 Abdomen-normal bowel sounds, no hepatosplenomegaly Extremities-no cyanosis, clubbing, or edema Neuro-cranial nerves II through XII intact, motor and sensory function within normal limits, strength symmetrical, no focal deficits Psych-normal affect, normal mood Discharge Plan Discharge Items Patient Disposition: Home - Home Health Services Reason For Visit: SHORTNESS OF BREATH Discharge Diagnosis: Influenza A, acute exacerbation COPD, transient hypoxic respiratory failure Activity: Resume your previous activity Non-emergency contact: Primary Care Provider Call non-emergency contact if: your symptoms worsen Follow-up/Referrals: Cyndy Stringer MD [Primary Care Provider] - 09/22/24 11:00 am Diet: Carb Consistent or DM2 and Heart Healthy Addtl Attending Provider Instructions: Take prednisone in a tapering dose fashion as directed. A prescription for prednisone has been sent to your pharmacy. All other medications remain the same. See primary care provider soon as possible Pending Studies at Discharge: No Stand-Alone Forms: [facility] [employer], Smoking Cessation Medications and DC Order Prescriptions: New prednisone 10 mg tablet See Rx Instructions .ROUTE .COMPLEX Qty: 12 0RF Rx Instructions: 10 mg orally 3 times a day for 2 days, then 10 mg twice a day for 2 days, then 10 mg once a day for 2 days, then stop Continued gabapentin 300 mg capsule 300 mg PO TID 90 Days Qty: 270 3RF (DME) nebulizer accessories Misc See Rx Instructions .ROUTE .MEDSUPPLY Qty: 1 0RF Rx Instructions: NEBULIZER TUBING. (DME) nebulizers Misc See Rx Instructions .ROUTE .MEDSUPPLY Qty: 1 0RF Rx Instructions: Nebulizer and nebulizer set up. DX: J44.9 (DME) compression socks, x-large Misc See Rx Instructions .ROUTE .MEDSUPPLY Qty: 2 0RF Rx Instructions: SIZE X-LARGE WITHOUT TOES R60.9 I87.2 (DME) miscellaneous medical supply Misc See Rx Instructions .ROUTE .MEDSUPPLY Qty: 1 0RF Rx Instructions: OXYGEN TUBING J45.909 J98.4 G47.34 ([facility] [place]) nebulizer accessories Kit See Rx Instructions .Route Qty: 1 0RF Rx Instructions: As directed furosemide 20 mg tablet 20 mg PO QAM Qty: 90 3RF Rx Instructions: TAKE 1 TABLET BY MOUTH EVERY MORNING ([facility] [place]) walker Misc See Rx Instructions .Route Qty: 1 0RF Rx Instructions: As directed levothyroxine 75 mcg tablet 75 mcg PO QAM Qty: 90 3RF (DME) CPAP Supplies [facility] See Rx Instructions .Route Qty: 1 3RF Rx Instructions: Supplies needed for daily use of CPAP as directed 8cmH20 Cflex 1 (Mask, headgear, filters, tubing, swivel) pantoprazole 40 mg tablet,delayed release (DR/EC) 40 mg PO QAM Qty: 90 3RF nystatin 100,000 unit/gram cream 1 applic TOP TID PRN (Reason: Skin Irritation) Qty: 30 1RF Patient Comments: pt stated she only uses the cream Rx Instructions: alternate application with powder metformin 500 mg tablet 500 mg PO QAM Qty: 90 3RF Ozempic 0.25 mg or 0.5 mg (2 mg/3 mL) pen injector 0.5 mg subcut .q7days 28 Days Qty: 3 2RF Rx Instructions: FRIDAYS amlodipine 5 mg tablet 5 mg PO QAM Qty: 90 3RF arformoterol [Brovana] 15 mcg/2 mL solution for nebulization 2 ml inhalation AMHS Qty: 120 2RF budesonide 0.5 mg/2 mL suspension for nebulization 0.5 mg inhalation BID 30 Days Qty: 120 4RF (DME) CPAP Machine Mis See Rx Instructions .Route Qty: 1 0RF Rx Instructions: CPAP 8 cmH2O with C-Flex of 1, nasal pillow or cushion, heated humidification, compliance download capabilities, DME: [facility] care ([facility] [place]) Shower Chair Misc See Rx Instructions .Route Qty: 1 0RF Rx Instructions: Bariatric shower chair calcium carbonate-vitamin D3 500 mg(1,250mg) -200 unit tablet 1 tab PO QPM Patient Comments: evening cyclosporine [Restasis] 0.05 % dropperette 1 drops OPB BID latanoprost 0.005 % drops 1 drops OPB HS metoprolol succinate 100 mg tablet extended release 24 hr 100 mg PO DAILY Qty: 90 3RF Eliquis 5 mg tablet 5 mg PO BID Qty: 180 3RF (DME) blood-glucose meter [OneTouch Ultra2 Meter] [facility] See Rx Instructions .Route Qty: 1 0RF Rx Instructions: Check once daily (DME) OneTouch Ultra Test Strip See Rx Instructions .Route Qty: 100 3RF Rx Instructions: Check blood sugar once daily (DME) lancets [OneTouch Delica Plus Lancet] 30 gauge [facility] [place] Rx Instructions .Route Qty: 100 3RF Rx Instructions: check blood sugar once daily alendronate [Fosamax] 70 mg tablet 70 mg PO WK Qty: 12 4RF Rx Instructions: Take 1 tab once weekly with 8 oz. plain water; wait 45 minutes before eating/drinking anything else. Mondays (DME) nebulizer accessories Kit See Rx Instructions .Route Qty: 1 11RF Rx Instructions: NEBULIZER TUBING (DME) Oxygen Home Liters Per Minute See Rx Instructions .Route Qty: 1 11RF Rx Instructions: OXYGEN TUBING AND NASAL CANNULAS (DME) CPAP Supplies [facility] See Rx Instructions .Route Qty: 1 0RF Rx Instructions: Cpap Accessories: Patient needs fitted for nasal pillows for CPAP machine LISETTE 99 ascorbic acid (vitamin C) [Vitamin C] 500 mg Tablet 500 mg PO QDL Patient Comments: noon docusate sodium 100 mg Capsule 200 mg PO DAILY azithromycin 250 mg tablet 250 mg PO 3XWK Rx Instructions: wednesday,wednesday and fridays acetaminophen [Tylenol Extra Strength] 500 mg tablet 1,000 mg PO TID PRN (Reason: Fever Or Pain) chlorpheniramine maleate 4 mg Tablet 4 mg PO QAM Rx Instructions: pt not sure if she takes atorvastatin 20 mg tablet 20 mg PO QAM Discharge Orders: Discharge Order (Routine); Ordered 09/15/24 Ordered By: Jasbir Shell/Other Patient Handouts: Managing Type 2 Diabetes Admission Data Admit Date/Time: 09/11/24 20:30 Attending Provider: Jasbir Espana Admit Provider: Dorcas Martin Primary Care Provider: Cyndy Stringer Other Providers: Marycarmen Rhodes; Viktoriya,Home Care Fax Hospital Stay Data Consultations 09/11/24 19:50 ED Decision to Admit Stat Pending Results Patient Have Any Pending Studies at Discharge: No Discharge Instructions Given to Patient (Per Discharging Provider) Take prednisone in a tapering dose fashion as directed. A prescription for prednisone has been sent to your pharmacy. All other medications remain the same. See primary care provider soon as possible Total Time Total Time Spent Total Time Spent (In Minutes): 50 minutes Coding Level of Care Code 80196 INP/OBS DISCH >30 MIN Diagnoses Influenza A J10.1 COPD exacerbation J44.1 Acute respiratory failure with hypoxia J96.01 Type 2 diabetes mellitus with obesity E11.69; E66.9 Atrial fibrillation I48.91 Hypothyroid E03.9 Obstructive sleep apnea G47.33 Primary hypertension I10 Hypertension type: primary hypertension CHF (congestive heart failure) I50.9
[2024-09-15 11:06] VITALS: BP 119/69
[2024-09-15 14:53] LABS: CMV IgG Antibody >10.00 U/mL; CMV IgM Antibody <30.00 AU/mL; Parvovirus B19 Qual Source Whole Blood; Parvovirus B19 Qualitative Not Detected (Not Detected)
[2024-09-15 15:15] VITALS: PULSE 89; RESP 20; O2SAT 90
== END 2024-09-15 16:58 | disposition home health service (06) | DRG 189 ==
LOC: ED 16:38 → INTOOBSV 20:30 → EDINP 20:30 → SUATTDRO 20:30 → 2W 09-12 09:43